=== PATIENT | female | born 1970 | race African-American/Black ===

== ENCOUNTER 2016-09-21 02:09 | Inpatient (IN) | payer MEDICARE ==
[~2016-09-21] VITALS: Ht 170.2 cm; Wt 84.7 kg
[~2016-09-21 02:09] MED LIST: AMPICILLIN TRI500 MG PO; BAYER ASPIRIN325 MG PO; BIAXIN 500 MG500 MG PO; CARAFATE1 G/10 ML PO; CREON (PANCRELI1 CAP PO; DIFLUCAN100 MG PO; FOLIC ACID1 MG PO; GEMFIBROZIL600 MG PO; HYDROCODONE-APA1 TAB PO; LISINOPRIL10 MG PO; LOPRESSOR25 MG PO; LOPRESSOR50 MG PO; MIRALAX17 GM PO; NEURONTIN 100100 MG PO; NEURONTIN 300300 MG PO; NICODERM C1 PATCH .2 TRANSDERM; NICODERM C1 PATCH .3 TRANSDERM; NORCO 5/325 TAB1 TA1 PO; NORVASC10 MG PO; NORVASC5 MG PO; PEPCID20 MG PO; PREDNISONE5 MG PO; PRILOSEC20 MG PO; PROTONIX40 MG PO; ULTRAM ER100 MG PO
[2016-09-21 02:53] LABS: BASOPHILS 0.2 % (0.0-2.0); EOSINOPHILS 1.6 % (0-7); HEMATOCRIT 39.5 % (36.0-48.0); HEMOGLOBIN 13.1 g/dL (12-16); IMMATURE GRANULOCYTES 0.2 % (0-5); LYMPHOCYTES 29.8 % (15-50); MCH 36.1 pg (26.0-34.0); MCHC 33.2 g/dL (31.0-37.0); MCV 108.8 fL (80.0-100.0); MEAN PLATELET VOLUME 9.8 fL (7.4-10.4); NEUTROPHILS 63.2 % (40-80); RBC 3.63 10x6/uL (4.00-5.40); RDW 14.8 % (11.5-14.5); WBC 10.7 10x3/uL (4.8-10.8)
[2016-09-21 03:03] LABS: PLATELET COUNT 260 10x3/uL (130-400)
[2016-09-21 03:21] LABS: ALBUMIN 3.3 g/dL (3.4-5.0); ALKALINE PHOSPHATASE 100 U/L (46-116); ALT (SGPT) 19 U/L (10-68); AMYLASE - SERUM 129 U/L (25-115); CALC OSMOLALITY 284 mosm/kg (275-300); CALCIUM 8.8 mg/dL (8.5-10.1); CHLORIDE - SERUM 105 mmol/L (98-107); CREATININE - SERUM 0.8 mg/dL (0.6-1.3); GLUCOSE 130 mg/dL (74-106); LIPASE 1204 U/L (73-393); PROTEIN - SERUM 6.9 g/dL (6.4-8.2); SODIUM 143 mmol/L (136-145); UREA NITROGEN 7 mg/dL (7-18); eGFR NON AFRICAN AMERICAN 81 mL/min (90-120)
--- NOTE | 2016-09-21 06:55 | NUR ---
Pt received to room 1278 by wheelchair from the ER. Able to transfer self in to the bed but is gaurding her left side, rates her pain at 9/10 and located on her left side and has been present and unchanged x 2 days. Also states that she has been nauseated with some vomiting and dirrehea x 2 weeks with 5+loose stools daily. IV to left AC patent without complaints, NS placed on pump per orders and Dilaudid MANUFACTURING RECRUITER started. Pt lungs are clear bilat, but she states that she currently has a non-productive cough, bowel sounds present. Pt allergies and home medications reviewed, admit assessment completed. She denies any questions or concerns at this time and has her microbiology lab assistant button in hand, side rails up x 2 and light turned down per request. will call if assistance is needed.
[2016-09-21 07:15] LABS: APPEARANCE CLOUDY (CLEAR); BILIRUBIN NEGATIVE (NEGATIVE); COLOR DK YELLOW (YELLOW); GLUCOSE NEGATIVE (NEGATIVE); KETONE NEGATIVE (NEGATIVE); LEUKOCYTE ESTERASE 1+ (NEGATIVE); NITRITE NEGATIVE (NEGATIVE); PROTEIN NEGATIVE (NEGATIVE); UROBILINOGEN NORMAL (NORMAL)
[2016-09-21 07:18] LABS: BACTERIA MODERATE /hpf (NONE SEEN); RED CELLS - URINE 0-5 /hpf (0-5); WHITE CELLS - URINE 0-5 /hpf (0-5)
[2016-09-21 07:54] VITALS: BP 178/89; BMI 28.5
--- NOTE | 2016-09-21 08:20 | NUR ---
Pt taken off unit by wheelchair with staff nuclear medicine technologist to go have CT done.
--- NOTE | 2016-09-21 09:30 | NUR ---
Pt back to her room from CT, she again transfers to bed without assistance. questions when she is able to have her zofran again, ER notes reviewed. pt advised of when next dose could be given and understands she will still need to call nurse for med if needed. Side rails up x 2 with phone and call light in reach. Sig other at bedside, encouraged both to call if assistance is needed or if they have questions.
--- NOTE | 2016-09-21 09:56 | NUR ---
up to void per herself, provided with wet wipes per request for personnel cleaning and per pt "feels better" when she uses them.
--- NOTE | 2016-09-21 10:19 | NUR ---
Pt calls out with complaint of increase nausea and ask if time for zofran. Emar/orders checked. Zofran 4mg sivp given as charted on emar. Lights tuned back out per her request. Continue to rate pain at 9/10 and is using her CAT SCAN TECH as often as possible, side rails up x 2 with call light with in her reach. Sig other at bedside.
--- NOTE | 2016-09-21 11:20 | NUR ---
New med orders received, verified and started as charted on emar. Pt rates pain at 9/10 but is now sitting up in bed with tv on visiting with sig other who remains at bedside. Call light in reach with side rails up x 2.
--- NOTE | 2016-09-21 12:55 | NUR ---
New bag of NS 1000ml hung and infusing per order. Pt ask if she is allowed ice chips and states her understanding not at this time. Denies any other questions or concerns at this time. lights turned out per her request, call light in reach with side rails up x 2.
--- NOTE | 2016-09-21 14:00 | NUR ---
Dr Veliz on unit and in for his review/assesment of pt, provided with am labs and CT results. Verbal order received that pt to have NG tube placed and coulg have 1mg bolus from button sewing machine operator prior to NG placement. Mill Attendant called and made awake of 's new orders.
--- NOTE | 2016-09-21 14:50 | NUR ---
18FR NG TUBE TO R NARES PER ALISHAAPPLIQUE SEWER WITHOUT COMPLECATIONS AND PT TOLERATES WELL. AFTER TUBE PLACED AIR INJECTED THRU AND AUDIBLE HEARD OVER PT STOMACH AREA, ALSO RETURN OF 45ML RED/BROWN FLUID NOTICED PRIOR TO CONNECTING TO SUCTION CANISTER. TUBING IS SECURED TO HER NOSE WITH NARES ATTACHMENT DEVICE AND PINNED TO PT GOWN TO PREVENT PULLING. WARM WET WASH CLOTH PROVIDED FOR HER TO WASH FACE AND HANDS, GOWN CHANGED AND TOWEL PLACED UNDER NG TUBING. PT DENIES ANY CONCERNS AT THIS TIME. CALL LIGHT IN REACH WITH SIDE RAILS UP X 2. SHE RATES HER PAIN AT 9/10 AND CONTINUES TO USE MANUFACTURING ENGINEERING TECHNOLOGIST WHEN POSSIBLE.
--- NOTE | 2016-09-21 15:51 | NUR ---
CALLED TO ROOM, PT ASKING FOR ASSISTANCE TO GET UP TO BATHROOM. SHE IS AGREEABLE TO A BEDSIDE TOILET. WATER CHASER NOTIFIED FOR THIS AND PT STATES SHE IS OK TO WAIT UNTIL THIS ARRIVES.
--- NOTE | 2016-09-21 16:53 | NUR ---
NG TUBE CANISTER REPLACED SECONDARY TO 900 CC REDISH-BROWN FLUID. REQUESTED ZOFRAN FOR C/O NAUSEA. ALSO CHECKED WITH RADIOLOGY TO SEE IF THEY ARE COMING TO DO KUB PER ORDER. THEY WILL BE DOWN SOON.
--- NOTE | 2016-09-21 18:34 | HP ---
PATIENT: NINA VALDOVINOS MEDICAL RECORD: [id number] ACCOUNT: [id number] LOCATION:[place] [id number] : 68 ADMISSION DATE: 09/21/16 HISTORY AND PHYSICAL EXAMINATION HISTORY OF PRESENT ILLNESS: Ms. Valdovinos is a pleasant 46-year-old white female with 2-day history of recent left upper quadrant pain, which radiates to the back, has a history of recurrent pancreatitis. She used to be a drinker, states she has not drinks since 2014, had first episode of pancreatitis for 5 years ago, has had recurrent problems since then and quit drinking a couple years ago. She does still smoke. Her gallbladder was removed last ____, thinking that might help with recurrence. Pancreatic enzymes are elevated. She still rates her pain pretty high as nausea and vomiting. PAST MEDICAL HISTORY: Significant for chronic and recurrent pancreatitis, diverticulitis with colitis, neuropathy, hypertension, rheumatoid arthritis, has been followed by ____ in the past. She denies any history of diabetes. PREVIOUS SURGICAL HISTORY: Includes gallbladder, hysterectomy, section, tonsillectomy, plate in right ankle, liver tumor, which was benign and PE tubes in her ears.. HOME MEDICATIONS: Included amlodipine 10 mg a day, lisinopril 10 mg a day,metoprolol 25 b.i.d., gabapentin 300 mg t.i.d., tramadol p.r.n., Creon 2 capsules t.i.d. with meals, famotidine 20 mg a day, pantoprazole 40 mg twice a day, prednisone 5 daily. FAMILY HISTORY: Noncontributory. SOCIAL HISTORY: The patient lives alone. She is disabled. She has not drink in a couple of years. She smokes 3-4 cigarettes on a day. She lives alone. REVIEW OF SYSTEMS: She denies any fever. She denies any chest pain or shortness of breath. She does complain of left upper quadrant pain, which radiates to her back. She has troubles with chronic diarrhea. No recent changes. There are no dysuria. PHYSICAL EXAMINATION: GENERAL: She appears to be in moderate pain. HEENT: Head is normocephalic. NECK: Soft and supple. HEART: Regular. LUNGS: Clear. ABDOMEN: Soft. She has quite a bit of tenderness in the left upper quadrant. Bowel sounds are present. IMPRESSION: Ysihp-cs-pulskis pancreatitis, history of alcohol abuse, current tobacco abuse, hypertension, rheumatoid arthritis, hyperlipidemia, neuropathy. PLAN: Admit. Continue with IV fluids, place an NG tube. Continue pain medicines. Monitor amylase and lipase. See orders for rest of plan. TRANSINT:[id number] Voice Confirmation ID: [id number] DOCUMENT ID: [id number] HISTORY AND PHYSICAL [id number] NINA VALDOVINOS MATTHEW DO at 1834 CC: [id number] DICTATION DATE: 09/21/16 1426 TIE SAWYER: 09/21/16 1510 ADM IN [place] [id number] [place] [address]
--- NOTE | 2016-09-21 19:17 | NUR ---
REGISTRATION COORDINATOR EMPTY. NEW VIAL PLACED. PAIN CURRENTLY 9/10, SHARP, STABBING PAIN TO LUQ OF ABD. PT REPORTS THAT PAIN IS CONSTANT. STATES THAT PAIN HAS BEEN 6-7/10 "A COUPLE OF TIMES TODAY" BUT RELIEF DOESN'T LAST LONG. FALL PRECAUTIONS DISCUSSED WELL USING CL PRN FOR ASSISTANCE, VERBALIZED UNDERSTANDING. S/O AT BEDSIDE AT THIS TIME. BED IN LOW POSITION WITH UPPER SIDE RAILS RAISED X2. CL/PHONE WITHIN REACH.
--- NOTE | 2016-09-21 19:27 | NUR ---
1ST K SHELDON SRIVASTAVA PER ELECTROLYTE PROTOCOL.
--- NOTE | 2016-09-21 19:41 | NUR ---
PT C/O BURNING TO PIV SITE. REQUESTS THAT K RIDER RATE BE DECREASED. STATES THAT SHE HAS HAD K RIDERS IN THE PAST AND KNOWS THAT THEY DO BURN BUT "IT'S LESS INTENSE WITH SLOWER RATE." INFUSION RATE DECREASED TO 75 MLS/HR PER PT REQUESTS.
[2016-09-21 19:46] VITALS: BP 143/81
--- NOTE | 2016-09-21 19:48 | NUR ---
SHIFT ASSESSMENT COMPLETED. PAIN 8/10 AT THIS TIME. SUCTION TURNED OFF AT THIS TIME. BOWEL SOUNDS PRESENT AND HYPOACTIVE X4 QUADS. PT REPORTS THAT SHE HAS HAD BM TODAY THAT WAS SMALL AND FORMED. ABD DISTENDED, C/O OF GENERALIZED ABD PAIN WITH INCREASED PAIN AND TENDERNESS TO LUQ. SUCTION TURNED BACK ONTO LOW INTERMITTENT SETTING ORDERED. CANISTER CONTENTS CURRENTLY DARK GREEN WITH LIGHT TO DARK GREEN CONTENTS WITH FOOD PARTICLES NOTED TO TUBING. PT REPORTS THAT SHE VOIDING WITHOUT DIFFUCULTY. VSS. BREATH SOUNDS CLEAR BILATERALLY TO AUSCULATION. HR REGULAR. PT REQUESTS PIV BE RESITED IF POSSIBLE FROM L A/C. RN ATTEMPTED TO RESITE WITH NO SUCCESS TO RIGHT FA. Sherly MCQUEEN, TAILER OFF TO ROOM TO ATTEMPT TO RESITE PER PT REQUEST. PIV TO LEFT A/C PATENT AND INFUSING WELL, PT REPORTS THAT IT IS JUST UNCOMFORTABLE NOT BEING ABLE TO MOVE AND BEND ARM FREELY. DENIES NEEDS AT THIS TIME S/O REMAINS AT BEDSIDE, SUPPORTIVE OF PT. BED IN LOW POSITION, CL/PHONE WITHIN REACH.
--- NOTE | 2016-09-21 20:10 | NUR ---
PIV RESITED TO LEFT HAND BY JULITO, COAL DRIER OPERATOR. DISCUSSED LEAVING LEFT A/C PIV IN PLACE SALINE LOCKED, D/T SMALL GAUGE BEING USED WITH RESITED, PT AGREEABLE. IV TUBING SWITCHED TO LEFT HAND PIV. PT AGREABLE TO LEAVE A/C PIV IN PLACE SALINE LOCKED. STATES THAT SHE USUALLY HAS TO HAVE PICC LINE PLACED WHEN IN THE HOSPITAL.
--- NOTE | 2016-09-21 20:51 | NUR ---
SECOND KCL RIDER HUNG. PT REQUESTS TO LEAVE RATE AT 75 MLS/HR. DENIES BURNING AND STINGING OF INFUSION AT THIS TIME. RATE LEFT AT 75 MLS/HR PER REQUEST.
--- NOTE | 2016-09-21 21:39 | NUR ---
PT RESTING WITH EYES CLOSED AT THIS TIME. WILL CONT TO MONITOR AND ASSIST PRN. BED IN LOW POSITION WITH UPPER SIDE RAILS RAISED X2. CL/PHONE WITHIN REACH.
--- NOTE | 2016-09-21 22:07 | NUR ---
PT HEARD COUGHING AND GAGGING. RN TO ROOM. PT VOMITING. REQUESTED PRN ZOFRAN TO BE GIVEN. GIVEN PER ORDER. PT VOMITED 200 MLS LIGHT YELLOW EMESIS IN EMESIS BAG. WATER GIVEN FOR PT TO RINSE MOUTH OUT FOLLOWING VOMITING EPISODE, SPIT WATER OUT IN EMESIS BASIN. ZOSYN HUNG PER ORDERS. PT UP TO BEDSIDE COMMODE AT THIS TIME. WILL CONT TO MONITOR AND ASSIST PRN.
--- NOTE | 2016-09-21 22:34 | NUR ---
THIRD KCL RIDER HUNG. PT REPORTS THAT NAUSEA IS GONE AT THIS TIME AND SHE HAS BEEN ABLE TO REST MORE COMFORTABLY NOW. PAIN /, LUQ OF ABD, CONSTANT SHARP ACHE. DENIES NEEDS AT THIS TIME. BED IN LOW POSITION. UPPER SIDE RAILS RAISED X2. CL/PHONE WITHIN REACH.
--- NOTE | 2016-09-22 00:49 | NUR ---
CALLED TO ROOM VIA CL. PT TEARFUL, RATING PAIN 10/10, CONSTANT SHARP ACHE ACROSS RUQ AND LUQ OF ABD. STATES THAT DIRECTOR STERILE PROCESSING IS NOT WORKING FOR PAIN AT THIS TIME. DR. PEACOCK PAGED WITH IMMEDIATE CALL BACK REC'D. ORDERS REC'D FOR 1 TIME 0.5 MG BOLUS FROM HYDROMORPHONE DIRECTOR STERILE PROCESSING.
[2016-09-22 01:03] VITALS: BP 162/88
--- NOTE | 2016-09-22 01:03 | NUR ---
0.5 MG HYDROMORPHONE BOLUS GIVEN FROM COMPLIANCE COORDINATOR PER ORDER. NEW BAG NORMAL SALINE HUNG PER ORDERS. RN ASSISTED PT TO POSITION TO LEFT SIDE WITH PILLOWS PLACE BEHIND BACK FOR COMFORT AND SUPPORT. PT DENIES ADDITIONAL NEEDS AT THIS TIME. BED IN LOW POSITION WITH UPPER SIDE RAILS RAISED X2. CL/PHONE WITHIN REACH. WILL CONT TO MONITOR AND ASSIST PRN.
--- NOTE | 2016-09-22 01:59 | NUR ---
PT C/O INCREASING NAUSEA. PRN ZOFRAN GIVEN PER ORDERS. ALSO REQUESTING KCL INFUSION RATE BE DECREASED D/T BURNING/STINGING OF KCL RIDERS. DECREASED TO 50 MLS/HR.
--- NOTE | 2016-09-22 02:15 | NUR ---
PT REQUESTED ICE CHIPS OR SIPS OF WATER. EXPLAINED THAT SHE WAS NPO. SWABS OFFERED AND ACCEPTED. DENIES ADDITIONAL NEEDS AT THIS TIME. REPORTS THAT PAIN IS CURRENTLY 7/10 AND MUCH IMPROVED FOLLOWING BOLUS.
--- NOTE | 2016-09-22 03:21 | NUR ---
4TH KCL RIDER INFUSION COMPLETE. PT RESTING WITH EYES CLOSED AT THIS TIME. RESPIRATIONS REGULAR, NO S/S OF DISTRESS NOTED. BED IN LOW POSITION WITH UPPER SIDE RAILS RAISED X2. CL/PHONE WITHIN REACH.
--- NOTE | 2016-09-22 04:02 | NUR ---
BLOCKLAYER VIAL CHANGED D/T BLOCKLAYER PUMP ALARMING NEAR END. PAIN CURRENTLY 8/10, SHARP ACHING CONSTANTLY. ZOSYN HUNG PER ORDERS (SEE EMAR). 1.6 MG HYDROMORPHONE WASTED. PT DENIES ADDITIONAL NEEDS AT THIS TIME. VSS. 500 MLS OUTPUT THIS SHIFT IN NGT CANISTER, DARK GREEN. NGT REMAINS TO LOW INTERMITTENT SUCTION SETTING. BED IN LOW POSITION. UPPER SIDE RAILS RAISED X2. CL/PHONE WITHIN REACH.
[2016-09-22 04:03] VITALS: BP 162/86
--- NOTE | 2016-09-22 04:42 | NUR ---
PT TRANSFERRED TO ROOM 1214 VIA W/C. ORIENTED TO ROOM, BATHROOM, AND CL USE. VERBALIZED UNDERSTANDING. BED IN LOW POSITION WITH UPPER SIDE RAILS RAISED X2. CL/PHONE PLACED WITHIN PT REACH.
[2016-09-22 07:45] VITALS: BP 159/85
[2016-09-22 08:00] VITALS: BP 159/85
[2016-09-22 08:02] LABS: BASOPHILS 0.1 % (0.0-2.0); EOSINOPHILS 2.6 % (0-7); HEMATOCRIT 36.5 % (36.0-48.0); HEMOGLOBIN 12.1 g/dL (12-16); IMMATURE GRANULOCYTES 0.3 % (0-5); LYMPHOCYTES 16.2 % (15-50); MCH 36.8 pg (26.0-34.0); MCHC 33.2 g/dL (31.0-37.0); MEAN PLATELET VOLUME 10.5 fL (7.4-10.4); NEUTROPHILS 73.8 % (40-80); PLATELET COUNT 218 10x3/uL (130-400); RBC 3.29 10x6/uL (4.00-5.40); RDW 14.9 % (11.5-14.5); WBC 8.9 10x3/uL (4.8-10.8)
[2016-09-22 08:03] LABS: MCV 110.9 fL (80.0-100.0)
[2016-09-22 08:10] LABS: INR 0.89 (0.85-1.17); PROTIME 11.9 SECONDS (11.6-15.0)
--- NOTE | 2016-09-22 08:20 | NUR ---
PATIENT IS AWAKE AND ALERT, AT THE BEDSIDE. HER NGT IS TO LIS VIA THE RIGHT NARE. THERE HAS BEEN MINIMAL OP SINCE 0400 (<10CC) HER LUNGS ARE CLEAR ANAYA. RRR AUSCULTATED. BOWEL SOUNDS ARE QUIET, HEARD IN RLQ. SHE IS NOT PASSING GAS. 1+ EDEMA NOTED TO THE TOPS OF EACH FOOT. SHE C/O NAUSEA DESPITE THE ZOFRAN GIVEN Q4 HOURS. SHE IS UP AD CEDRICK. DENIES NEEDING HELP UP TO THE RESTROOM. SHE DENIES NEEDS AT THIS TIME. CALL LIGHT IS WITHIN HER REACH.
[2016-09-22 08:29] LABS: ALBUMIN 3.1 g/dL (3.4-5.0); ALKALINE PHOSPHATASE 93 U/L (46-116); AMYLASE - SERUM 127 U/L (25-115); BILIRUBIN - TOTAL 0.86 mg/dL (0.2-1.3); CALCIUM 8.6 mg/dL (8.5-10.1); CARBON DIOXIDE 27.4 mmol/L (21.0-32.0); CHLORIDE - SERUM 104 mmol/L (98-107); CREATININE - SERUM 0.6 mg/dL (0.6-1.3); GLUCOSE 83 mg/dL (74-106); LIPASE 1042 U/L (73-393); PROTEIN - SERUM 6.7 g/dL (6.4-8.2); SODIUM 140 mmol/L (136-145); THYROID STIMULATING HORMONE 1.33 uIU/mL (0.36-3.74); eGFR NON AFRICAN AMERICAN > 90 mL/min (90-120)
[2016-09-22 08:31] LABS: ALT (SGPT) 14 U/L (10-68); CALC OSMOLALITY 274 mosm/kg (275-300); POTASSIUM - SERUM 3.9 mmol/L (3.5-5.1); UREA NITROGEN 3 mg/dL (7-18)
--- NOTE | 2016-09-22 09:35 | NUR ---
SPOKE WITH NIRANJAN CORNELIUS REGARDING NAUSEA. NEW ORDERS RECIEVED.
--- NOTE | 2016-09-22 09:58 | NUR ---
PATIENT IS RESTING IN HER BED, HOB UP 45 DEGREES, VISITING WITH COMPANY. NO NEEDS NOTED.
[2016-09-22 14:46] VITALS: Ht 170.2 cm; Wt 84.7 kg
--- NOTE | 2016-09-22 15:45 | NUR ---
SUCTION CANISTER CHANGED. SHE HAS HAD APPROX 400CC OF OP SINCE 0400 THIS MORNING. PLACEMENT OF NGT CHECKED VIA AUSCULTATION OF AIR BOLUS. RETAPED NGT FOR COMFORT.
--- NOTE | 2016-09-22 16:20 | NUR ---
DOLLYMAN BOLUS GIVEN VIA PUMP PER MD ORDER.
--- NOTE | 2016-09-22 16:25 | NUR ---
PATIENT ACCEPTED HER NICODERM PATCH. DENIES UNCONTROLLED PAIN. STATES THAT SHE IS GOING TO "CLEAN UP" AND DENIED NEEDS AT THIS TIME.
--- NOTE | 2016-09-22 18:33 | NUR ---
PATIENT CURRENTLY SITTING UP IN HER BED. SHE STATES THAT HER PAIN REMAINS AN 8. IT IS IN HER LUQ PRIMARILY WITH SHARP, SHOOTING PAINS AROUND THE LEFT SIDE TO HER BACK. SHE STATES THAT THE NAUSEA IS MUCH IMPROVED AT THIS TIME. DENIES NEEDS, CALL LIGHT IS WITHIN HER REACH.
[2016-09-22 20:09] VITALS: BP 154/105
--- NOTE | 2016-09-22 20:21 | NUR ---
RESUMING CARE OF THIS. BESIDE REPORT REC'D FROM Kriss QUEVEDO RN. PT REC'D SITTING IN HIGH [place]BSON POSITION. A&O X3. S/O AT BEDSIDE. BED IN LOW POSITION WITH UPPER SIDE RAILS RAISED X2. CL/PHONE WITHIN REACH.
--- NOTE | 2016-09-22 21:03 | NUR ---
PT REQUESTED NGT BE CAPPED SO THAT SHE COULD AMBULATE IN THE [facility] WITH S/O. NGT CAPPED PER REQUEST. PT UP AMBULATING WITH S/O AT THIS TIME
--- NOTE | 2016-09-22 21:33 | NUR ---
PT BACK TO ROOM FROM AMBULATING WITH S/O.
--- NOTE | 2016-09-22 22:03 | NUR ---
CALLED TO ROOM VIA CL. PT TEARFUL, GRIMACING AND RUBBING THAT TOP OF HER ABD. PAIN 10/10, STATES THAT FEELS LIKE SOMEONE IS STABBING HER AND TWISTING A KNIFE AROUND IN HER. REQUEST OBSTETRIC ANAESTHETIST BOLUS. ORDERS REVIEWED WITH PT. PT REPORTS THAT SHE THOUGHT MD WAS SUPPOSED TO ORDER PRN BOLUS DOSES FOR HER, EXPLAINED THAT ORDER WAS FOR 1 TIME BOLUS AND IT HAD ALREADY BEEN GIVEN PER DOCUMENTATION. ON-CALL MD PAGED.
--- NOTE | 2016-09-22 22:10 | NUR ---
CALL BACK REC'D FROM ROBERT SOLIZ. REPORTED PT C/O PAIN. ORDERS REC'D TO REPEAT 0.5 MG BOLUS X1.
--- NOTE | 2016-09-22 22:15 | NUR ---
0.5 MG BOLUS GIVEN FROM SUPERVISOR MIRROR FABRICATION ORDERED. NGT CANISTER CHANGED WITH 580 MLS OUTPUT NOTED. PT REPORTS THAT SHE FORGOT THAT TO NOTIFY RN OF NEED TO VOID AND HAS VOIDED BUT WILL CALL THE NEXT TIME FOR I&O CATH. BED IN LOW POSITION WITH UPPER SIDE RAILS RAISED X2. CL/PHONE WITHIN REACH.
--- NOTE | 2016-09-22 22:57 | NUR ---
AARTI SRIVASTAVA. SEE EMAR. PT REQUESTS CUP OF ICE WATER FOR SWABS FOR HER MOUTH. GIVEN PER REQUESTS. STATES THAT SHE FEELS NEED TO VOID. I&O CATH DONE USING STERILE TECHNIQUE, TOLERATED WELL, SPECIMAN OBTAINED AND SENT TO LAB. DENIES ADDITIONAL NEEDS. BED REMAINS IN LOW POSITION WITH UPPER SIDE RAILS RAISED X2, CL/PHONE WITHIN REACH.
[2016-09-23] VITALS: BP 168/104
--- NOTE | 2016-09-23 00:08 | NUR ---
B/P 168/104, HR 105. PT CONTINUES TO RATE PAIN 03/15 TO LUQ OF ABD. PAGED WITH IMMEDIATE CALL BACK REC'D FROM ROBERT SOLIZ. REPORTED UNCONTROLLED PAIN AND ELEVATED B/P. ORDERS REC'D FOR 10 MG IVP APRESOLINE Q6HP FOR SBP>170 AND DBP>100.
--- NOTE | 2016-09-23 00:21 | NUR ---
10 MG HYDRALAZINE GIVEN SIVP OVER 4 MINUTES VIA R UPPER ARM MIDLINE CATHETER. MED USE AND SIDE EFFECTS DISCUSSED WITH PT, VERBALIZED UNDERSTANDING. DENIES NEEDS AT THIS TIME. STATES THAT PAIN IS 9/10 AT THIS TIME. REINFORCED AND ENCOURAGED TO USE INSTRUMENT DESIGNER WHEN BUTTON IS GREEN, VERBALIZED UNDERSTANDING.
--- NOTE | 2016-09-23 01:19 | NUR ---
B/P RECHECKED, STABLE. NEW BAG NS HUNG TO CONTINUE TO INFUSE AT ORDERED RATED OF 125 MLS/HR (SEE EMAR). PAIN 8/10, CONSTANT SHARP ACHE TO LUQ OF ABD. DENIES NEEDS AT THIS TIME. CHILD CARE NURSE USED WHILE RN IN ROOM. BED IN LOW POSITION WITH UPPER SIDE RAILS RAISED X2. CL/PHONE WITHIN REACH.
[2016-09-23 01:20] VITALS: BP 157/89
--- NOTE | 2016-09-23 02:35 | NUR ---
ROUND MADE. PT RESTING WITH EYES CLOSES, AROUSED WHEN DOOR OPENED. RATES PAIN 8-9/10 LUQ ABD PAIN. ASSISTED TO POSITION TO LEFT SIDE, PILLOWS PLACED BEDHIND BACK FOR COMFORT AND SUPPORT. PT REPORTS THAT SHE IS STILL USING INFECTIOUS DISEASE TECHNICIAN BUTTON. ICE CHIPS GIVEN. DENIES ADDITIONAL NEEDS AT THIS TIME. BED IN LOW POSITION WITH UPPER SIDE RAILS RAISED X2. CL/PHONE WITHIN REACH. WILL CONT TO MONITOR AND ASSIST PRN.
--- NOTE | 2016-09-23 03:52 | NUR ---
ROUNDS MADE. PT RESTING WITH EYES CLOSED AT THIS TIME. RESPIRATIONS REGULAR. NO S/S OF DISTRESS NOTED. BED IN LOW POSITION WITH UPPER SIDE RAILS RAISED X2. CL/PHONE WITHIN REACH. WILL CONT TO MONITOR AND ASSIST PRN.
[2016-09-23 05:03] VITALS: BP 151/95
[2016-09-23 06:29] LABS: BASOPHILS 0.1 % (0.0-2.0); EOSINOPHILS 2.3 % (0-7); HEMATOCRIT 35.6 % (36.0-48.0); HEMOGLOBIN 11.8 g/dL (12-16); IMMATURE GRANULOCYTES 0.2 % (0-5); LYMPHOCYTES 16.6 % (15-50); MCH 36.3 pg (26.0-34.0); MCHC 33.1 g/dL (31.0-37.0); MCV 109.5 fL (80.0-100.0); MEAN PLATELET VOLUME 10.1 fL (7.4-10.4); MONOCYTES 5.7 % (2-11); NEUTROPHILS 75.1 % (40-80); PLATELET COUNT 203 10x3/uL (130-400); RBC 3.25 10x6/uL (4.00-5.40); RDW 14.9 % (11.5-14.5); WBC 8.8 10x3/uL (4.8-10.8)
[2016-09-23 07:02] LABS: ALBUMIN 2.8 g/dL (3.4-5.0); ALKALINE PHOSPHATASE 91 U/L (46-116); ALT (SGPT) 14 U/L (10-68); CALCIUM 8.2 mg/dL (8.5-10.1); CHLORIDE - SERUM 98 mmol/L (98-107); CHOLESTEROL, TOTAL 210 mg/dL (0-200); CREATININE - SERUM 0.5 mg/dL (0.6-1.3); LIPASE 351 U/L (73-393); PROTEIN - SERUM 6.4 g/dL (6.4-8.2); SODIUM 134 mmol/L (136-145); TRIGLYCERIDE 45 mg/dL (30-200); eGFR NON AFRICAN AMERICAN > 90 mL/min (90-120)
[2016-09-23 07:05] LABS: AMYLASE - SERUM 63 U/L (25-115); CALC OSMOLALITY 261 mosm/kg (275-300); CHOL - HDL RATIO 1.3 ratio (2.3-4.1); GLUCOSE 65 mg/dL (74-106); HDL CHOLESTEROL 162 mg/dL (32-96); LDL CHOLESTEROL 39 mg/dL (0-100); LDL-HDL RATIO 0.2 ratio (1.5-3.5); UREA NITROGEN 2 mg/dL (7-18)
--- NOTE | 2016-09-23 07:30 | NUR ---
PATIENT IS RESTING QUIETLY WITH EYES CLOSED. NO NEEDS NOTED. MONITORING.
[2016-09-23 08:00] VITALS: BP 155/83
--- NOTE | 2016-09-23 08:40 | NUR ---
PATIENT ACCEPTED NICOTINE PATCH TOT HE LEFT UPPER ARM. SHE HAD REMOVED THE PATCH FROM THE RIGHT UPPER ARM FROM YESTERDAY. SHE RATES HER PAIN A 9. SHE STATES HTAT THE PAIN IS MORE EPIGASTRIC TODAY BUT DOES STILL GO THROUGH TO HER BACK. SHE HAS 250CC OF OP FROM HER NGT SINCE 0500.
--- NOTE | 2016-09-23 10:45 | NUR ---
PATIENT'S THIRD BAG OF POTASSIUM HUNG. NEW ORDERS RECEIVED FOR A DILAUDID BOLUS Q4 HOURS PRN. SHE IS RATING HER PAIN A 9/10. BOLUS GIVEN VIA LOG TURNER. SHE IS RESTING IN HER BED, HOB UP 45 DEGREES. CALL LIGHT IS WITHIN HER REACH. DISCUSSED WITH HER THAT CLARIFIED THAT SHE IS NOT TO BE DRINKING ANYTHING. SHE NODS AND VOICED UNDERSTANDING.
--- NOTE | 2016-09-23 12:00 | NUR ---
DR. IRVIN HERE TO ASSESS PATINET. SHE IS AWAKE AND ALERT, WITHONT NOTED NEEDS.
[2016-09-23 13:00] VITALS: BP 138/74
--- NOTE | 2016-09-23 13:30 | NUR ---
PATIENT IS SITTING UP ON HER BEDSIDE WITH HER FEET IN A BASIN OF WATER. SHE DENIES NEEDS FOR ASSISTANCE AT THIS TIME. FRESH GOWN AND TOWELS PROVIDED FOR HER. INSTRUCTED HER TO CALL FOR ASSISTANCE PUTTING THINGS AWAY AND CHANGING BED LINENS WHEN SHE IS FINISHED. CALL LIGHT IS WITHIN HER REACH. HER SPOUSE IS AT THE BEDSIDE.
--- NOTE | 2016-09-23 13:32 | NUR ---
Is the patient Alert and Oriented? Yes 0 * How many steps to enter\exit or inside your home? 0 0 * PCP DR. IRVIN 0 * Pharmacy [facility] 0 * Preadmission Environment Home Alone 0 * ADLs Independent 0 * Equipment Rolling Walker 0 * List name and contact numbers for known caregivers / representatives who currently or will assist patient after discharge: SON: ISABEL CARLSON JR. [phone] 0 * Community resources currently utilized None 0 * Please name any agencies selected above. PATIENT HAD [facility] IN THE PAST 0 * Additional services required to return to the preadmission environment? No 0 * Can the patient safely return to the preadmission environment? Yes 0 * Has this patient been hospitalized within the prior 30 days at any hospital? No PATIENT IS AWAKE AND ALERT. SHE STATES SHE LIVES AT HOME ALONE AND IS INDEPENDENT IN HER ADL'S. HE SON IS AVAILABLE TO ASSIST HER NEEDED. EITHER HE OR HER OTHER SON WILL BE AVAILABLE TO DRIVE HER HOME AT DISCHARGE. PATIENT'S PCP IS DR. IRVIN. SHE GETS HER MEDS FROM [facility]. SHE HAS A WALKER. SHE STATES SHE HAD HOME HEALTH CARE IN THE PAST WITH [facility]. PATIENT STATES THERE ARE NOT STEPS TO ENTER HER HOME. NO NEEDS IDENTIFIED AT THIS TIME.
--- NOTE | 2016-09-23 15:05 | NUR ---
PATIENT USED CALL LIGHT TO REQUEST A DILAUDID BOLUS AND TO HAVE HER SUCTION CANISTER CHANGED. THERE IS 750CC OF DRAINAGE THAT HAS DIFFERENT COLORS THROUGHOUT. THERE IS EVEN SOME SEDIMENT IN THE BOTTOM OF THE CANISTER. AGAIN INSTRUCTED HER TO NOT EAT OR DRINK ANYTHING MORE. SHE STATES THAT SHE DID DRINK SOME TEA AND THAT APPROX 1/2 OF THE DRAINAGE IS TEA. SHE'S ALSO HAD A COUGH DROP AND THIS ACCOUNTS FOR THE BLUE AT THE TOP. CANISTER CHANGED.
--- NOTE | 2016-09-23 16:30 | NUR ---
Linen change completed. Pt assisted to bed. NG tube reconnected after ADL completion. Pt with no s/sx distress noted. Family at bedside.
--- NOTE | 2016-09-23 18:03 | NUR ---
Medication administration completed. Tolerated well. ABTx hung after pepcid administered. Tolerated well. Assisted to reposition in bed. Pt denies further needs at this time. NO s/sx distress noted.
[2016-09-23 19:35] VITALS: BP 153/98
--- NOTE | 2016-09-23 19:35 | NUR ---
AWAKE DURING INITIAL ROUNDS. INTRODUCED SELF. V/S TAKEN. BP 153/98. ASSESSMENT DONE. STATUS Dx: PANCREATITIS/HYPOKALEMIA. NGT TO LOW INTERMITTENT SUCTION WITH GREENISH GASTRIC SECRETIONS. NS @ 125cc/hr TO R UPPER ARM. DILAUDID DESIGN CENTER CONSULTANT FOR PAIN MANAGEMENT. ZOFRAN DRIP INFUSING. SEE E-MAR. BOTH HANDS SWOLLEN.
--- NOTE | 2016-09-23 20:00 | NUR ---
PORTABLE KUB DONE.
--- NOTE | 2016-09-23 20:35 | NUR ---
SOLUMEDROL 125mg IVP GIVEN ORDERED. 1ST BAG OF MAGNESIUM RIDER INFUSING.
--- NOTE | 2016-09-23 21:04 | NUR ---
2nd MAGNESIUM RIDER STARTED.
--- NOTE | 2016-09-23 22:06 | NUR ---
3rd MAGNESIUM RIDER STARTED.
--- NOTE | 2016-09-23 22:43 | NUR ---
DILAUDID BOLUS 0.5mg GIVEN. ZOSYN IVPB INFUSING. SEE E-MAR. NO ADVERSE REACTION NOTED.
--- NOTE | 2016-09-23 23:09 | NUR ---
LAST DOSE OF MAGNESIUM RIDER GIVEN. SEE E-MAR.
[2016-09-24 00:05] VITALS: BP 173/101
--- NOTE | 2016-09-24 00:14 | NUR ---
FIRST BAG OF K+ RIDER STARTED. SEE E-MAR.
--- NOTE | 2016-09-24 00:41 | NUR ---
B/P 173/101. APRESOLINE GIVEN SIVP OVER 3 MINUTES VIA RIGHT UPPER ARM MIDLINE CATH. MIDLINE FLUSHED WITH 10 MLS NS PRIOR TO ADMINISTERING AND 20 MLS POST ADMINISTRATION. IV INFUSIONS RESTARTED FOLLOWING APRESOLINE DOSE.
--- NOTE | 2016-09-24 02:34 | NUR ---
3rd BAG OF K+ RIDER STARTED. UP TO THE BATHROOM. VOIDED.
--- NOTE | 2016-09-24 02:47 | NUR ---
DILAUDID 0.5mg BOLUS GIVEN PER PT's REQUEST.
--- NOTE | 2016-09-24 03:00 | NUR ---
NGT CANNISTER REPLACED. 900cc OUTPUT.
--- NOTE | 2016-09-24 03:51 | NUR ---
LAST BAG OF K+ RIDER STARTED. PT AWAKE.
[2016-09-24 04:07] VITALS: BP 151/93
--- NOTE | 2016-09-24 04:07 | NUR ---
V/S RE-CHECKED. BP 151/93.
--- NOTE | 2016-09-24 04:59 | NUR ---
IV PUMP CLEARED FOR INTAKE AND OUTPUT.
--- NOTE | 2016-09-24 05:48 | NUR ---
DILAUDID GATE TECHNICIAN SYRIUNGE CHANGED. PAIN LEVEL "6" /10.
--- NOTE | 2016-09-24 06:02 | NUR ---
PEPCID 40mg SIVP GIVEN. SEE E-MAR. SLEPT FAIRLY WELL DURING THE NIGHT. CONTINUING PLAN OF CARE.
--- NOTE | 2016-09-24 07:09 | NUR ---
GYMNASIUM TEACHER HERE TO DRAW AM LAB. DILAUDID BOILER OR ENGINE OPERATOR BOLUS GIVEN. PAIN LEVEL "6"/10. REPORT GIVEN TO AM SHIFT NURSES.
[2016-09-24 07:15] VITALS: BP 145/92
[2016-09-24 07:46] LABS: BASOPHILS 0 % (0.0-2.0); EOSINOPHILS 0 % (0-7); HEMATOCRIT 34.6 % (36.0-48.0); HEMOGLOBIN 11.4 g/dL (12-16); IMMATURE GRANULOCYTES 0.1 % (0-5); MCHC 32.9 g/dL (31.0-37.0); MCV 109.1 fL (80.0-100.0); MEAN PLATELET VOLUME 10.3 fL (7.4-10.4); MONOCYTES 1.8 % (2-11); NEUTROPHILS 91.1 % (40-80); PLATELET COUNT 214 10x3/uL (130-400); RBC 3.17 10x6/uL (4.00-5.40); RDW 14.6 % (11.5-14.5); WBC 6.8 10x3/uL (4.8-10.8)
[2016-09-24 08:01] LABS: ALBUMIN 2.6 g/dL (3.4-5.0); ALKALINE PHOSPHATASE 84 U/L (46-116); ALT (SGPT) 11 U/L (10-68); AMYLASE - SERUM 52 U/L (25-115); C-REACTIVE PROTEIN 15.2 mg/dL (0.0-0.9); CALCIUM 8.5 mg/dL (8.5-10.1); CARBON DIOXIDE 23.8 mmol/L (21.0-32.0); CHLORIDE - SERUM 103 mmol/L (98-107); CREATININE - SERUM 0.5 mg/dL (0.6-1.3); LIPASE 214 U/L (73-393); POTASSIUM - SERUM 3.8 mmol/L (3.5-5.1); PROTEIN - SERUM 6.4 g/dL (6.4-8.2); SODIUM 138 mmol/L (136-145); eGFR NON AFRICAN AMERICAN > 90 mL/min (90-120)
[2016-09-24 08:09] LABS: CALC OSMOLALITY 274 mosm/kg (275-300); GLUCOSE 146 mg/dL (74-106); UREA NITROGEN 1 mg/dL (7-18)
--- NOTE | 2016-09-24 08:35 | NUR ---
X-RAY IS HERE TO TAKE PT TO HAVE MRI OF ABDOMEN. IV SALINE LOCKED. NG TUBE IS CLAMPED. PT TAKEN BY WHEELCHAIR.
--- NOTE | 2016-09-24 10:00 | NUR ---
PT BROUGHT BACK FROM X-RAY. PT OFFERS NO COMPLAINTS. PT BACK TO BED.
--- NOTE | 2016-09-24 11:00 | NUR ---
PT IS SITING UP IN BED WATCHING TV. SHE OFFERS NO COMPLAINTS. BED IS LOW., SIDE RAILS UP 2 AND CALL LIGHT IN REACH.
--- NOTE | 2016-09-24 11:59 | CN ---
PATIENT NAME:NINA ODELL MEDICAL RECORD: [id number] : 66 LOCATION:[facility].1214 ADMIT DATE: 09/21/16 ACCOUNT: [id number] CONSULTING PHYSICIAN: MICHELLE MIRZA MD REFERRING PHYSICIAN: WAN SOTO DO DATE OF CONSULTATION: 09/23/2016 Gastrointestinal Consultation REFERRING PHYSICIAN: Fabio Irvin MD HISTORY OF PRESENT ILLNESS: The patient is a 46-year-old black female, well known to me with history of longstanding alcohol abuse and subsequent pancreatitis, now admitted with recurrent mild pancreatitis as noted on admitting lab work and CT of the abdomen. She has been off on alcohol for several years, but she claims she quit drinking about a year and a half ago. She has had multiple admissions over the past couple of years including March 2015, September 2015, April 2016 and now. She had an empiric cholecystectomy in April of last year to see if that might help. She has had KUB here too that revealed some obstipation in the past, but supposedly is on MiraLax periodically. B12 and folate levels have been unremarkable so far, although she does have an elevated MCV apparently due to her past alcohol abuse. She has had mild to moderate hypertriglyceridemia in the past and has been on Lopid for that. However, recent triglyceride level was normal at around 200. She underwent recent EGD a couple months as an outpatient that was normal other than very early esophageal varices. On admission, a CT of the abdomen was normal other than postcholecystectomy changes and mild pancreatitis changes involving the tail of the pancreas. There is no necrosis or fluid collections present. Her lipase was about 1100 and her amylase was 127. After 24 hours of IV fluids, they have already normalized. However, she still is symptomatic despite NG tube and BUILDING CONSTRUCTION SUPERINTENDENT pump. I was asked to see the patient in this regard. PAST MEDICAL HISTORY: As above. She also has neuropathy as well as hypertension. PAST SURGICAL HISTORY: Remarkable for , tonsillectomy, ankle fracture and she actually had an upper and lower endoscopy by Dr. Padgett back in 2010, which were unremarkable. She also has had a hysterectomy. ALLERGIES: LATEX. SOCIAL HISTORY: The patient smoked quarter pack a day for 15 years, but quit about a year ago. She used to be a heavy drinker, but she apparently quit drinking a little over a year ago. She has also started smoking cigarettes again it appears. HOME MEDICATIONS: Include p.r.n. MiraLax, Lopid, Norvasc, lisinopril, Neurontin as well as prednisone 5 mg daily for her "arthritis." FAMILY HISTORY: Negative for GI disease. REVIEW OF SYSTEMS: Noncontributory. CONSULT REPORT [id number] NINA ODELL PHYSICAL EXAMINATION: GENERAL: Reveals a middle-aged black female in mild to moderate distress. VITAL SIGNS: Stable. She is afebrile. CHEST: Clear. HEART: Regular rhythm. ABDOMEN: Soft with mild to moderate tenderness in left upper quadrant. She has an NG tube in place. EXTREMITIES: No edema. LABORATORY DATA: Reveals normal white count, normal hematocrit of 39, MCV of 106, platelet count of 200,000 with a normal differential. Electrolytes are normal. BUN 2, creatinine 0.6. Liver enzymes are normal. Albumin is low at 3. Amylase and lipase are normal at present. Of note, the recent IgG4 level was normal. IMPRESSION 1. Recurrent [id number] mild pancreatitis, apparently stemming from alcohol use. Some of it could be related to her history of hypertriglyceridemia as well. 2. History of chronic constipation, although this does not seem to be much of an issue right now. RECOMMENDATION: 1. Agree with vigorous IV fluids, BUILDING CONSTRUCTION SUPERINTENDENT for pain control, and bowel rest. 2. Check KUB. 3. MRCP. 4. Once improved, she will need long-term Creon pancreatic supplementation, which she claims she is already taking. This needs to be paired with a PPI to help reduce acids in her stomach. 5. Low fat diet. 6. Completely avoid all alcohol and tobacco products. 7. Avoid dehydration. 8. There is mention in the chart about referring to her to [facility]. I have no problems with these, other than I do not believe there is much that they could do there more than we could do here, other than consideration of a possible partial pancreatectomy, which will be obviously required on aggressive approach. TRANSINT:[id number] Voice Confirmation ID: [id number] DOCUMENT ID: [id number] MICHELLE MIRZA MD at 1159 CC: FABIO IRVIN MD [id number] DICTATION DATE: 09/23/16 913 TRANSPORTATION BROKER: 09/24/16 0006 ADM IN [facility] [address] [id number]
--- NOTE | 2016-09-24 12:17 | NUR ---
PT C/O PAIN BEING A 6/10. SHE REQUESTED A BOLUS. GIVEN . PT IS SITTING ON SIDE OF BED.
--- NOTE | 2016-09-24 12:54 | NUR ---
PT IS IN WHEELCHAIR GOING TO WALK WITH HER SON. NG CLAMPED. IV SALINE LOCKED.
--- NOTE | 2016-09-24 13:00 | NUR ---
DR RIGGS IS HERE TO SEE PT. PT IS OUT WALKING WITH HER SOON. DR RIGGS GAVE ORDERS TO CLAMP HER NG AND GIVE HER CLEAR LIQUIDS. HE STATES THAT IF SHE TOLERATES 2 LIQUID DIETS THAT WE MAY REMOVE NG TUBE. HE STATES HER MRI SHOWS MILD PANCREATITIS. KUB SHOWED NO BLOCKAGE.
--- NOTE | 2016-09-24 13:47 | NUR ---
PT RETURNED TO ROOM WITH HER SON. PT OFFERS NO COMPLAINTS.
--- NOTE | 2016-09-24 14:02 | NUR ---
PTS NG TUBE HAS BEEN CLAMPED. LIQUID DIET LUNCH WAS BROUGHT TO HER. SHE IS GOING TO TRY TO EAT THIS.
--- NOTE | 2016-09-24 15:00 | NUR ---
PT HAS TOLERATED NG TUBE BEING CLAMPED. SHE ATE HER CLEAR LIQUID DIET AND ALSO ASKED FOR SOME MORE BROTH.
--- NOTE | 2016-09-24 15:15 | NUR ---
PT IS SLEEPING. BED IS LOW, SIDE RAILS UP X 2 AND CALL LIGHT IN REACH.
--- NOTE | 2016-09-24 16:01 | NUR ---
PT IS SLEEPING. BED IS LOW, SIDE RAILS UP X 2 AND CALL LIGHT IN REACH.
--- NOTE | 2016-09-24 17:04 | NUR ---
PT IS STILL SLEEPING. HER IS AT BEDSIDE. BED IS LOW. SIDE RAILS UP X 2 AND CALL LIGHT IN REACH.
--- NOTE | 2016-09-24 17:39 | NUR ---
PT AWAKE AND EATING CLEAR LIQUID DIET. TOLERATING WELL. SHE IS HAVING PAIN. SHE WOULD LIKE TO HAVE A DILAUDID BOLUS. GIVEN. 0.5 MG. AT BEDSIDE.
[2016-09-24 19:22] VITALS: BP 145/80
--- NOTE | 2016-09-24 19:22 | NUR ---
PT RECEIVED SITTING UP IN BED AAOX3 WITH FAMILY AT BEDSIDE. PULSE-113. PT RATES PAIN 7/10 AT THIS TIME. IV NOTED TO RIGHT UPPER ARM INFUSING NS @ 125 CC/HR WITH ZOFRAN DRIP INFUSING @ 4.6 CC/HR. PATENT. DRESSING CDI. HEART-SINUS TACHYCARDIA RHYTHM REGULAR. LUNG SOUNDS CLEAR BILATERALLY. BOWEL SOUNDS ACTIVE X4 QUADRENTS. NG TUBE NOTED TO RIGHT NARE. CLAMPED. PT ON CLEAR LIQUID DIET AT THIS TIME. TOLERATING WELL. ABDOMEN SOFT. NON-DISTENDED. PT CONTINUES TO REFUSE SCDS AT THIS TIME. PEDAL PULSES EQUAL BILATERALLY. PT DENIES NEEDS AT THIS TIME. BED LOW. PHONE AND CALL LIGHT IN REACH. SRX2.
--- NOTE | 2016-09-24 20:46 | NUR ---
NG TUBE REMOVED AT THIS TIME. PT TOLERATED WELL. TIP INTACT. PT REQUESTS CHICKEN BROTH AND ICE WATER. DENIES OTHER NEEDS. BED LOW. PHONE AND CALL LIGHT IN REACH. SRX2.
--- NOTE | 2016-09-24 21:45 | NUR ---
PT UP AMBULATING HALLWAY AT THIS TIME. DENIES NEEDS.
--- NOTE | 2016-09-24 22:01 | NUR ---
0.4 MG BOLUS DOSE OF DILAUDID ADMINISTERED AT THIS TIME FOR PAIN PT RATES 01/12. CHANGED DILAUDID PIECE GOODS PACKER AT THIS TIME. PT DENIES NEEDS. BED LOW. PHONE AND CALL LIGHT IN REACH. SRX2.
--- NOTE | 2016-09-24 22:51 | NUR ---
REASSESSED PTS PAIN AT THIS TIME. PT RATES PAIN 01/12. DENIES NEEDS. TALKING ON PHONE AT THIS TIME. BED LOW. PHONE AND CALL LIGHT IN REACH. SRX2.
--- NOTE | 2016-09-24 23:35 | NUR ---
CONTACTED SHOW CARD LETTERER, ALISHA AT THIS TIME CONCERNING IV DRUG COMPATABILITY OF ZOSYN AND ZOFRAN. HE STATES IT IS COMPATIBLE AT [facility] AND BROUGHT THE BOOK TO SHOW ME.
--- NOTE | 2016-09-24 23:42 | NUR ---
PT TALKING ON PHONE AT THIS TIME. INITIATED ZOSYN IVPB PER ORDERS AT THIS TIME. VSS. PT DENIES NEEDS AT THIS TIME. BED LOW. PHONE AND CALL LIGHT IN REACH. SRX2.
[2016-09-24 23:45] VITALS: BP 147/86
--- NOTE | 2016-09-25 01:40 | NUR ---
PT UP USING RESTROOM AT THIS TIME. REQUESTS COFFEE. DENIES OTHER NEEDS. BED LOW. PHONE AND CALL LIGHT IN REACH. SRX2.
--- NOTE | 2016-09-25 02:10 | NUR ---
0.5 MG BOLUS DOSE OF DILAUDID ADMINISTERED AT THIS TIME. PT DENIES NEEDS.
[2016-09-25 03:49] VITALS: BP 156/89
--- NOTE | 2016-09-25 03:49 | NUR ---
PT SITTING UP IN BED WATCHING TV AT THIS TIME. VSS. PT DENIES NEEDS AT THIS TIME. BED LOW. PHONE AND CALL LIGHT IN REACH. SRX2.
--- NOTE | 2016-09-25 05:26 | NUR ---
PT RESTING QUIETLY AT THIS TIME WITH EYES CLOSED. AROUSED EASILY. ADMINISTERED PEPCID IVP PER ORDERS AT THIS TIME. PT DENIES NEEDS. BED LOW. PHONE AND CALL LIGHT IN REACH. SRX2.
--- NOTE | 2016-09-25 06:40 | NUR ---
0.5 MG DILAUDID ECOLOGIST TECHNICIAN BOLUS ADMINISTERED AT THIS TIME. PT DENIES OTHER NEEDS. BED LOW. PHONE AND CALL LIGHT IN REACH. SRX2.
[2016-09-25 06:51] LABS: BASOPHILS 0 % (0.0-2.0); EOSINOPHILS 0 % (0-7); HEMATOCRIT 39.1 % (36.0-48.0); IMMATURE GRANULOCYTES 0.2 % (0-5); LYMPHOCYTES 4.1 % (15-50); MCH 35.9 pg (26.0-34.0); MCHC 33.2 g/dL (31.0-37.0); MEAN PLATELET VOLUME 11.1 fL (7.4-10.4); MONOCYTES 3.7 % (2-11); PLATELET COUNT 282 10x3/uL (130-400); RBC 3.62 10x6/uL (4.00-5.40); RDW 14.8 % (11.5-14.5); WBC 12.5 10x3/uL (4.8-10.8)
[2016-09-25 07:01] LABS: ALBUMIN 3.2 g/dL (3.4-5.0); ALKALINE PHOSPHATASE 92 U/L (46-116); ALT (SGPT) 13 U/L (10-68); BILIRUBIN - TOTAL 0.46 mg/dL (0.2-1.3); CARBON DIOXIDE 20.9 mmol/L (21.0-32.0); CHLORIDE - SERUM 103 mmol/L (98-107); POTASSIUM - SERUM 3.7 mmol/L (3.5-5.1); PROTEIN - SERUM 6.9 g/dL (6.4-8.2); SODIUM 142 mmol/L (136-145)
[2016-09-25 07:04] LABS: CALC OSMOLALITY 284 mosm/kg (275-300); CREATININE - SERUM 0.7 mg/dL (0.6-1.3); GLUCOSE 205 mg/dL (74-106); UREA NITROGEN 2 mg/dL (7-18); eGFR NON AFRICAN AMERICAN > 90 mL/min (90-120)
[2016-09-25 07:30] VITALS: BP 153/98
--- NOTE | 2016-09-25 07:30 | NUR ---
PT IS RECEIVED LYING IN BED. SHE OFFERS NO COMPLAINTS. BED IS LOW, SIDE RAILS UP X 2 AND CALL LIGHT IN REACH. GEN- AWAKE AND ALERT. LUNGS- CLEAR. HEART- RRR. ABD- SOFT, TENDER, BS+. EXT- NO SCD'S, PT REFUSED, SHE IS UP AND AMBULATORY. IV PATENT-R UPPER INNER ARM. PATENT WITH IV INFUSING AND DILAUDID DIESEL LOCOMOTIVE FIRER.
--- NOTE | 2016-09-25 08:00 | NUR ---
PT IS UP WALKING IN HALLWAY. SHE ASKED TO BE UNHOOLED FROM HER IV. UNHOOKED IV AND BLOOD STARTED COMING OUT ON FLOOR AND ON PT. IV REATTACHED. CLEANED UP SPILL USING APPROPRIATE WIPES AND THEN PT WAS SALINE LOCKED WITHOUT PROBLEMS.
--- NOTE | 2016-09-25 09:30 | NUR ---
PT BACK TO ROOM. SALINE LOCK WAS FLUSHED WITH SALINE AND IT WOULD NOT FLUSH. JEREL, VASCULAR ACCESS NURSE CALLED. SHE GOT IT TO FLUSH AND IV WAS STARTED BACK UP.
--- NOTE | 2016-09-25 10:00 | NUR ---
PT REQUEST BOLUS FROM MISSION ANALYST FOR PAIN. PAIN 8/10. BOLUS GIVEN. BED IS LOW, SIDE RAILS UP X 2 AND CALL LIGHT IN REACH.
--- NOTE | 2016-09-25 12:30 | NUR ---
PT IS EATING FULL LIQUID DIET. SHE STATES THAT SHE WOULD LIKE TO HAVE A REGULAR DIET. SHE STATES THAT DR IRVIN TOLD HER THAT SHE COULD HAVE A REGULAR DIET. PT ORDERED REGULAR DIET.
--- NOTE | 2016-09-25 13:01 | NUR ---
PT TOLERATED FULL LIQUID DIET. PT REQUESTED A REGULAR DIET. ORDERED REGULAR DIET FOR PT.
--- NOTE | 2016-09-25 14:12 | NUR ---
0.5MG DILAUDID BOLUS GIVEN PER REQUEST.
--- NOTE | 2016-09-25 14:44 | NUR ---
PT IS RESTING IN BED. TOLERATED HER REGUALR DIET. OFFERS NO COMPLAINTS. IV PATENT. BED IS LOW, SIDE RAILS UP X 2 AND CALL LIGHT IN REACH.
--- NOTE | 2016-09-25 17:45 | NUR ---
PT IS RESTING IN BED. OFFERS NO COMPLAINTS. BED IS LOW SIDE RAILS UP X 2 AND CALL LIGHT IN REACH. IV PATENT R UPPER ARM. NS INFUSING AT 125 CC/HR. DILAUDID GLASS MOLD REPAIRER INTACT.
--- NOTE | 2016-09-25 17:59 | NUR ---
PT IS UP IN ROOM TO VOID. VOIDED 400 CC.
[2016-09-25 19:09] VITALS: BP 166/88
--- NOTE | 2016-09-25 19:09 | NUR ---
PT RECEIVED SITTING UP IN BED WATCHING TV. DILAUDID COTTON CONVERTER BOLUS OF 0.5 MG GIVEN AT THIS TIME. PT RATES PAIN 8/10. VSS. MIDLINE IV NOTED TO RIGHT UPPER ARM INFUSING NS @ 125 WITH DILAUDID COTTON CONVERTER AND ZOFRAN DRIP. PATENT. DRESSING CDI. HEART RRR. LUNG SOUNDS CLEAR BILATERALLY. BOWEL SOUNDS ACTIVE X4 QUADRENTS. SCDS NOTED TO BLE AT THIS TIME. PT REQUESTS CHOCOLATE AND VANILLA PUDDING AT THIS TIME. DENIES OTHER NEEDS. BED LOW. PHONE AND CALL LIGHT IN REACH. SRX2.
--- NOTE | 2016-09-25 20:30 | NUR ---
PT RESTING QUIETLY AT THIS TIME WITH EYES CLOSED. RESPIRATIONS EVEN, NON-LABORED. NO ACUTE DISTRESS NOTED AT THIS TIME. BED LOW. PHONE AND CALL LIGHT IN REACH. SRX2.
--- NOTE | 2016-09-25 21:01 | NUR ---
ADMINISTERED VIBRAMYCIN PO PER ORDERS AT THIS TIME. PT DENIES NEEDS. BED LOW. PHONE AND CALL LIGHT IN REACH. SRX2.
--- NOTE | 2016-09-25 21:42 | NUR ---
PT SITTING UP IN BED. REQUESTS CUP OF ICE, PEN, AND PAPER AT THIS TIME. DENIES OTHER NEEDS. BED LOW. PHONE AND CALL LIGHT IN REACH. SRX2.
--- NOTE | 2016-09-25 22:39 | NUR ---
DILAUDID MARINE CARGO INSPECTOR EMPTY AT THIS TIME. CHANGED TO NEW SYRINGE. PT RATES PAIN 8/10. PLAYING CARDS WITH FAMILY MEMBER AT BEDSIDE. DENIES NEEDS. BED LOW. PHONE AND CALL LIGHT IN REACH. SRX2.
[2016-09-25 23:37] VITALS: BP 168/103
--- NOTE | 2016-09-25 23:37 | NUR ---
PT SITTING UP IN BED PLAYING CARDS WITH FAMILY MEMBER AT THIS TIME. VITAL SIGNS TAKEN. BP-168/103 LEFT UPPER ARM. PT DENIES ANY INCREASE IN PAIN, DIZZINESS, OR LIGHTHEADEDNESS. WILL CONTINUE TO MONITOR. DENIES NEEDS AT THIS TIME. BED LOW. PHONE AND CALL LIGHT IN REACH. SRX2.
--- NOTE | 2016-09-26 02:56 | NUR ---
APRESALINE 10MG IN 0.5 ML IVP GIVEN FOR BP OF 173/100 PER PROTOCOL. SEE EMAR. PT DENIES PAIN OR NEEDS AT THIS TIME. WILL CONTINUE TO MONITOR.
[2016-09-26 04:03] VITALS: BP 145/77
--- NOTE | 2016-09-26 04:03 | NUR ---
PT RESTING QUIETLY AT THIS TIME. AROUSED EASILY. VITAL SIGNS TAKEN. PULSE-126. PT DENIES ANY INCREASED PAIN, LIGHT HEADEDNESS, OR DIZZINESS. WILL CONTINUE TO MONITOR. DENIES NEEDS. BED LOW. PHONE AND CALL LIGHT IN REACH. SRX2.
--- NOTE | 2016-09-26 04:51 | NUR ---
PT PULSE 119 AT THIS TIME. RESTING QUIETLY. AROUSED EASILY. DENIES NEEDS. BED LOW. PHONE AND CALL LIGHT IN REACH. SRX2.
--- NOTE | 2016-09-26 05:10 | NUR ---
PT RESTING QUIETLY AT THIS TIME. AROUSED EASILY. DENIES NEEDS. BED LOW. PHONE AND CALL LIGHT IN REACH. SRX2.
[2016-09-26 06:27] LABS: BASOPHILS 0.1 % (0.0-2.0); EOSINOPHILS 0 % (0-7); HEMATOCRIT 34.5 % (36.0-48.0); HEMOGLOBIN 11.5 g/dL (12-16); IMMATURE GRANULOCYTES 0.6 % (0-5); LYMPHOCYTES 12.4 % (15-50); MCH 35.6 pg (26.0-34.0); MCHC 33.3 g/dL (31.0-37.0); MCV 106.8 fL (80.0-100.0); MONOCYTES 8.8 % (2-11); NEUTROPHILS 78.1 % (40-80); PLATELET COUNT 280 10x3/uL (130-400); RBC 3.23 10x6/uL (4.00-5.40); RDW 14.6 % (11.5-14.5)
[2016-09-26 06:34] LABS: WBC 15.8 10x3/uL (4.8-10.8)
[2016-09-26 06:44] LABS: ALBUMIN 2.5 g/dL (3.4-5.0); ALKALINE PHOSPHATASE 80 U/L (46-116); ALT (SGPT) 11 U/L (10-68); AMYLASE - SERUM 55 U/L (25-115); BILIRUBIN - TOTAL 0.29 mg/dL (0.2-1.3); C-REACTIVE PROTEIN 4.9 mg/dL (0.0-0.9); CALCIUM 8.6 mg/dL (8.5-10.1); CHLORIDE - SERUM 106 mmol/L (98-107); LIPASE 208 U/L (73-393); PROTEIN - SERUM 5.6 g/dL (6.4-8.2); SODIUM 143 mmol/L (136-145)
[2016-09-26 06:45] LABS: CALC OSMOLALITY 282 mosm/kg (275-300); CREATININE - SERUM 0.5 mg/dL (0.6-1.3); GLUCOSE 128 mg/dL (74-106); POTASSIUM - SERUM 3.1 mmol/L (3.5-5.1); UREA NITROGEN 1 mg/dL (7-18); eGFR NON AFRICAN AMERICAN > 90 mL/min (90-120)
--- NOTE | 2016-09-26 07:45 | NUR ---
PT IS LYING IN BED SLEEPING. SHE STATES HER PAIN IS AN 8. GEN- EASILY AWAKENS. LUNGS- CLEAR. HEART- RRR. ABD- SOFT, NONTENDER. EXT- WARM AND DRY, PULSES PALP[place]LE. PT IS VOIDING WITHOUT DIFFICULTY. IV PATENT R UPPER ARM. MIDLINE IV WITH NS INFUSING AT 100 CC/HR. PT IS ON CONTACT ISOLATION. PT AND FAMILY ARE AWARE OF ISOLATION INSTRUCTIONS. BED IS LOW, SIDE RAILS UP X 2 AND CALL LLIGHT IN REACH.
[2016-09-26 08:00] VITALS: BP 139/72
--- NOTE | 2016-09-26 09:00 | NUR ---
PT UP TO VOID. BACK TO BED. PT STATES THAT SHE IS SLEEPY. DIS NOT EAT BREAKFAST.
--- NOTE | 2016-09-26 09:56 | NUR ---
PT IS SLEEPING. BED IS LOW, SIDE RAILS UP X 2 AND CALL LILGHT IN REACH.
--- NOTE | 2016-09-26 11:00 | NUR ---
BATHROOM CALL LIGHT WET OFF. WENT TO PTS ROOM TO FIND HER SITTING ON THE TOILET, VOMITING YELLOW BILE. PT BACK TO BED. VS 147/84-136-94%. PT STATES THAT SHE FEELS WEAK AND NEEDS SOME ORANGE JUICE. LUNGS- WITH WHEEZING NOTED BILATERALLY. HEART- TACHYCARDIC. ABDOMEN SOFT BS+. EXT- NO EDEMA. PT STATES THAT SHE FEELS SOB AND HAS CHEST PAIN. PT IS CLAMMY. CALLED DR IRVIN AND HE ORDERED STAT EKG, CXR, CARDIAC ENZYMES AND UPDRAFT. XOPENOX UPDRAFT ORDERED DUE TO PT BEING TACHCARDIC.
--- NOTE | 2016-09-26 11:15 | NUR ---
DR IRVIN IS HERE TO SEE PT. ORDERS NOTED. PT WILL BE TRANSFERRED TO 2124 AFTER TEST OBTAINED.
--- NOTE | 2016-09-26 11:53 | NUR ---
PT IS LYING IN BED. NO TALKING MUCH. STATES SHE FEELS WEAK. PULSE OX 99 %. FAMILY AT BEDSIDE.
[2016-09-26 12:21] LABS: TROPONIN-I 0.016 ng/mL (0.000-0.060)
--- NOTE | 2016-09-26 12:22 | NUR ---
Nutrition Follow Up: Chart reviewed. Diet has been advanced to regular. Pt was tolerating full liquids per MD note. I>O. Wt stable. Labs noted - K+ low. Meds noted. Rec continue current diet as tolerated. RD following.
--- NOTE | 2016-09-26 12:29 | NUR ---
PT IS LYING IN BED. AWAKE AND ALERT. VS 154/85-129-92% PT REQUESTED ORANGE JUICE. GIVEN.
--- NOTE | 2016-09-26 14:29 | NUR ---
THIS RN TO ROOM FOR PT CHECK. PT RATING PAIN 9/10, REQUESTING TO HAVE BOLUS DOSE OF DILAUDID THROUGH COMMUNITY HEALTH COORDINATOR. ORDER CHECKED AND NOTED TO BE . DR IRVIN PHONED AND ORDER RECEIVED TO CONTINUE ORDER FOR COMMUNITY HEALTH COORDINATOR PREVIOUSLY ORDERED, TO INCLUDE A 0.5MG BOLUS DOSE EVERY 4 HOURS PRN. ORDER UPDATED. WILL ADMIN TO PT ORDERED.
--- NOTE | 2016-09-26 14:35 | NUR ---
PT ADMIN 0.5MG BOLUS DOSE DILAUDID VIA HELP DESK ENGINEER PUMP ORDERED PRN FOR PAIN RATED 9/10. PT PROVIDED WITH SPRITE REQUESTED. PT DENIES FURTHER NEEDS AT THIS TIME. SRUx2, CL IN REACH. WILL CONT TO MONITOR.
--- NOTE | 2016-09-26 15:00 | NUR ---
HELPED TRANSPORT PT TO [facility] 2125 VIA WHEELCHAIR. SETTLED INTO ROOM AND CHANGED GOWN. TOLERATED WELL.
--- NOTE | 2016-09-26 15:00 | NUR ---
CALLED REPORT TO NURSE ON MED II. SHE WAS TRANSPORTED UPSTAIRS TODAY TO 2124
[2016-09-26 16:32] VITALS: BP 131/79
[2016-09-26 18:34] LABS: TROPONIN-I 0.018 ng/mL (0.000-0.060)
--- NOTE | 2016-09-26 19:40 | NUR ---
DILAUDID 0.5MG BOLUS VIA SAND ANALYST GIVEN FOR C/O BREAKTHROUGH PAIN. FAMILY AT BEDSIDE.
[2016-09-26 22:19] VITALS: BP 160/88
--- NOTE | 2016-09-26 22:42 | NUR ---
INITIAL ROUNDS COMPLETED AT 1920 HRS. PT REQUESTING DILAUDID BOLUS. ORDERS CHECKED AND NURSES NOTES READ. DILAUDID 0.5MG BOLUS ADMINISTERED VIA AUTOMOTIVE DETAILER. ASESSMENT COMPLETED AT [address] PE CM HR 116. 02 3LNC. LUNGS DIMINISHED IN BASES BILAT. IV TO RAC AREA WITH NS AT 30CC/HR, ZOFRAN DRIP AT 4.7CC/HR AND DILAUDID AUTOMOTIVE DETAILER 0.2MG Q 10 MINUTES WITH 4MG Q 4HR LOCKOUT. PT ON CONTACT ISO FOR MRSA INURINE. PM MEDS GIVEN. PT CURRENTLY WATCHING TV. WILL CONTINUE TO MONITOR. SR UP X2, CALL LIGHT WITHIN REACH.
--- NOTE | 2016-09-27 00:02 | NUR ---
DILAUDID 0.5MG BOLUA GIVEN FOR C/O ABD PAIN PER CRANIOLOGIST. EKG DONE. WILL CONTINUE TO MONITOR. SR UP X2, CALL LIGHT WITHIN REACH.
[2016-09-27 01:26] VITALS: BP 170/93
--- NOTE | 2016-09-27 01:57 | NUR ---
PT AWAKE WATCHING TV. NO DISTRESS NOTED. WILL CONTINUE TO MONITOR.
--- NOTE | 2016-09-27 04:11 | NUR ---
PT RESTING WITH EYES CLOSED. RESP EVEN AND REGULAR. SR UP X2, CALL LIGHT WITHIN REACH.
[2016-09-27 04:29] VITALS: BP 134/86
--- NOTE | 2016-09-27 06:48 | NUR ---
VSS THROUGHUOT NIGHT. PT STATES DILAUDID MANAGER DOMESTIC HELPS TO CONTROL ABD PAIN. NEEDS MET; WILL CONTINUE TO MONITOR.
[2016-09-27 06:52] LABS: BASOPHILS 0.1 % (0.0-2.0); EOSINOPHILS 1.4 % (0-7); HEMATOCRIT 32.5 % (36.0-48.0); HEMOGLOBIN 10.6 g/dL (12-16); IMMATURE GRANULOCYTES 0.2 % (0-5); LYMPHOCYTES 33.4 % (15-50); MCH 35.5 pg (26.0-34.0); MCHC 32.6 g/dL (31.0-37.0); MCV 108.7 fL (80.0-100.0); MONOCYTES 8.7 % (2-11); NEUTROPHILS 56.2 % (40-80); PLATELET COUNT 287 10x3/uL (130-400); RBC 2.99 10x6/uL (4.00-5.40); RDW 14.9 % (11.5-14.5)
[2016-09-27 07:02] LABS: WBC 8.1 10x3/uL (4.8-10.8)
[2016-09-27 07:21] LABS: ALBUMIN 2.2 g/dL (3.4-5.0); ALKALINE PHOSPHATASE 76 U/L (46-116); ALT (SGPT) 10 U/L (10-68); BILIRUBIN - TOTAL 0.51 mg/dL (0.2-1.3); CALC OSMOLALITY 277 mosm/kg (275-300); CALCIUM 8.5 mg/dL (8.5-10.1); CHLORIDE - SERUM 103 mmol/L (98-107); CREATINE KINASE 19 UL (21-215); CREATININE - SERUM 0.5 mg/dL (0.6-1.3); GLUCOSE 114 mg/dL (74-106); PRO BNP 620 pg/mL (0-125); PROTEIN - SERUM 5.4 g/dL (6.4-8.2); SODIUM 141 mmol/L (136-145); UREA NITROGEN 1 mg/dL (7-18); eGFR NON AFRICAN AMERICAN > 90 mL/min (90-120)
[2016-09-27 07:25] LABS: POTASSIUM - SERUM 2.5 mmol/L (3.5-5.1)
[2016-09-27 07:26] LABS: CARBON DIOXIDE 31.8 mmol/L (21.0-32.0); TROPONIN-I < 0.017 ng/mL (0.000-0.060)
--- NOTE | 2016-09-27 07:36 | NUR ---
AAOX 4 RESP UNLABORED NAD NOTED DENIES ANY NEEDSS OR DISCOMFORT
--- NOTE | 2016-09-27 08:02 | NUR ---
ASSESSMENT COMPLETED. TELEMERTY SHOWS ST. [facility] WITH NS AT KVO. DILAUDID PARACHUTE MANUFACTURING SUPERVISOR AT 0.2MG EVERY 10 MIN WOTH A 4 MIN LOCK OUT.PT IS ON ISOLATION. WILL MONITOR
[2016-09-27 09:04] VITALS: BP 165/101
[2016-09-27 12:23] VITALS: BP 132/81
--- NOTE | 2016-09-27 15:20 | NUR ---
IV BOLUS OF DILAUDID .5 GIVEN FOR RELIEF OF PAIN. CALL LIGHT IN REACH WITH SR UP. WILL MONITOR
[2016-09-27 16:19] VITALS: BP 158/96
--- NOTE | 2016-09-27 16:52 | NUR ---
LYING QUIETLY WITH EYES CLOSED. SR UP WITH CALL LIGHT IN REACH. FAMILY AT BEDSIDE
[2016-09-27 20:59] VITALS: BP 165/76
--- NOTE | 2016-09-27 23:17 | NUR ---
INITIAL ROUNDS COMPLETED AT 1920 HRS. PT DENEID ANY DISCOMFORT. ASSESSMETN COMPLETED AT [address] PER CM HR 110. IV RAC MIDLINE WIHT ZOFRAN DRIP AT 4.7CC/HR, NS AT 30CC/HR AND DILAUDID CAR SALES CONSULTANT 0.2MG Q 10 MINUTES WITH 4MG Q4HR LOCK OUT. O2 2.5LNC. LUNGS DIMINISHED INBASES BILAT. TRACE PEDAL EDEMA/ PRODUCTIVE COUGH YELLOW IN COLOR. DILAUDID BOLUS 0.5MG ADMINISTERED AT 2044 HRS. PM MEDS GIVEN. PT CURRETNLY RESTING WITH EYES CLOSED. RESP EVEN AND REGULAR. SR UP X2, CALL LIGHT WITHIN REACH.
[2016-09-28 00:12] VITALS: BP 165/80
--- NOTE | 2016-09-28 00:55 | NUR ---
PT RESTING WITH EYES CLOSED. RESP EVEN AND REGULAR. SR UP X2, CALL LIGHT WITHIN REACH.
--- NOTE | 2016-09-28 02:25 | NUR ---
PT RESTING WITH EYES CLOSED. RESP EVEN AND REGULAR. SR UP X2, CALL LIGHT WITHIN REACH.
[2016-09-28 04:00] VITALS: BP 160/82
--- NOTE | 2016-09-28 04:54 | NUR ---
PT RESTING WITH EYES CLOSED. RESP EVEN AND REGULAR. SR UP X2, CALL LIGHT WITHIN REACH.
[2016-09-28 06:28] LABS: CALC OSMOLALITY 277 mosm/kg (275-300); CALCIUM 8.9 mg/dL (8.5-10.1); CARBON DIOXIDE 33.2 mmol/L (21.0-32.0); CHLORIDE - SERUM 101 mmol/L (98-107); CREATININE - SERUM 0.5 mg/dL (0.6-1.3); GLUCOSE 114 mg/dL (74-106); POTASSIUM - SERUM 3.3 mmol/L (3.5-5.1); SODIUM 141 mmol/L (136-145); UREA NITROGEN 1 mg/dL (7-18); eGFR NON AFRICAN AMERICAN > 90 mL/min (90-120)
--- NOTE | 2016-09-28 06:44 | NUR ---
VSS THROUGHOUT NIGHT. SR/ST PER CM. PT STATES DILAUDID ACCESS NURSE CONTROLLING PAIN. NEEDS MET; WILL CONTINUE TO MONITOR.
[2016-09-28 07:15] LABS: BASOPHILS 0.1 % (0.0-2.0); EOSINOPHILS 1.1 % (0-7); HEMATOCRIT 34.5 % (36.0-48.0); HEMOGLOBIN 11.1 g/dL (12-16); IMMATURE GRANULOCYTES 0.3 % (0-5); LYMPHOCYTES 20.7 % (15-50); MCH 35.1 pg (26.0-34.0); MCHC 32.2 g/dL (31.0-37.0); MCV 109.2 fL (80.0-100.0); MEAN PLATELET VOLUME 10.1 fL (7.4-10.4); MONOCYTES 7.9 % (2-11); NEUTROPHILS 69.9 % (40-80); PLATELET COUNT 351 10x3/uL (130-400); RBC 3.16 10x6/uL (4.00-5.40); WBC 10.1 10x3/uL (4.8-10.8)
--- NOTE | 2016-09-28 08:07 | NUR ---
ASSESSMENT COMPLETED. PT IS ON CONTACT ISOLATION. TELEMERTY SHOWS ST AT 103. O2 AT 2 L/M PER NC. RIGHT AC MID LINE WITH ZOFRAN AT 4.7, NS AT 30 AND DILAUDID EDITOR GREETING CARD AT 0.2MG Q 10 MIN WITH A 4 HOUR 4MG LOCK OUT. DENIES ANY NEEDS. SR UP WITH CALL LIGHT IN REACH
[2016-09-28 08:40] VITALS: BP 128/70
--- NOTE | 2016-09-28 12:37 | NUR ---
RESTING QUIETLY RESP UNLABORED DENIES ANY NEEDS OR DISCOMFORT AT THIS TIME NAD NOTED
[2016-09-28 13:46] VITALS: BP 138/76
--- NOTE | 2016-09-28 15:30 | NUR ---
BOLUS OF DILAUDID 0.5MMG GIVEN
[2016-09-28 15:58] VITALS: BP 127/67
--- NOTE | 2016-09-28 19:01 | NUR ---
INITIAL ROUNDS COMPLETED. PT DENIES ANY DISCOMFORT. WILL CONTINUE TO MONITOR.
[2016-09-28 20:15] VITALS: BP 130/76
--- NOTE | 2016-09-28 23:21 | NUR ---
ASSESSMENT COMPLETED AT [address] PER CM HR 125. O2 2.5LNC. LUNGS DIMINISHED IN BASES BILAT. IV MIDLINE TO RAC WITH NS AT 30CC/HR, ZOFRAN AT 4.7CC/HR AND DILAUDID REVIEW MANAGER 0.2MG Q 10 MINUTES WITH 4MG QHR LO. 0.5 BOLUS Q 4HRS PRN BREAKTHROUGH PAIN. PRODUCTIVE COUGH YELLOW IN COL0R. PT TOOK BATH AT THIS TIME. PM MEDS GIVEN. DILAUDID 0.5MG BOLUS GIVEN AT 2116 HRS FOR C/O CP WITH COUGH. HAT PLACED IN BR. EXPLAINRF TO PT IMPORTANCE OF MEASURING URINE. PT STATED UNDERSTANDING. k= 2.9 AT 2300 HRS. KCL 20 MEQ IN 120CC OF CRANBERRY JUICE GIVEN AT 2305 PER ELECTROLYTE PROTCOL. PT CURRENTLY WATCHING TV. WILL CONTINUE TO MONITOR. SR UP X2, CALL LIGHT WITHIN REACH.
--- NOTE | 2016-09-29 00:28 | NUR ---
PT WATCHING TV. WILL CONTINUE TO MONITOR.
[2016-09-29 01:00] VITALS: BP 154/79
--- NOTE | 2016-09-29 01:32 | NUR ---
DILAUDID 0.5MG BOLUS GIVEN FOR C/O CHEAT AND ABD PAIN. WILL CONTINUE TO MONITOR.
--- NOTE | 2016-09-29 04:37 | NUR ---
TESSALON PERLES PO GIVEN FOR C/O COUGH. WILL CONTINUE TO MONITOR.
[2016-09-29 04:45] VITALS: BP 126/62
[2016-09-29 05:45] LABS: BASOPHILS 0.1 % (0.0-2.0); EOSINOPHILS 1.4 % (0-7); HEMATOCRIT 32.8 % (36.0-48.0); HEMOGLOBIN 10.6 g/dL (12-16); IMMATURE GRANULOCYTES 0.5 % (0-5); LYMPHOCYTES 20.9 % (15-50); MCH 35.6 pg (26.0-34.0); MCHC 32.3 g/dL (31.0-37.0); MCV 110.1 fL (80.0-100.0); MEAN PLATELET VOLUME 9.6 fL (7.4-10.4); MONOCYTES 9.2 % (2-11); NEUTROPHILS 67.9 % (40-80); PLATELET COUNT 346 10x3/uL (130-400); RBC 2.98 10x6/uL (4.00-5.40); RDW 15.3 % (11.5-14.5)
[2016-09-29 06:05] LABS: CALCIUM 8.9 mg/dL (8.5-10.1); CARBON DIOXIDE 30.3 mmol/L (21.0-32.0); CHLORIDE - SERUM 99 mmol/L (98-107); GLUCOSE 109 mg/dL (74-106); SODIUM 135 mmol/L (136-145)
[2016-09-29 06:17] LABS: CALC OSMOLALITY 266 mosm/kg (275-300); CREATININE - SERUM 0.7 mg/dL (0.6-1.3); POTASSIUM - SERUM 3.8 mmol/L (3.5-5.1); UREA NITROGEN 2 mg/dL (7-18); eGFR NON AFRICAN AMERICAN > 90 mL/min (90-120)
--- NOTE | 2016-09-29 06:31 | NUR ---
VSS THROUGHOUT NIGHT. PT STATES DILAUDID UNDERGROUND FOREMAN HELPS DIMINISH PAIN. AM K+ 3.8. NEEDS MET; WILL CONTINUE TOMONITOR.
[2016-09-29 08:16] VITALS: BP 138/68
[2016-09-29 11:38] VITALS: BP 127/70
--- NOTE | 2016-09-29 14:32 | NUR ---
PT CALLED REQUESTING HER BOLUS AND PROVIDED WITH HER 0.5MG OF DILAUDID VIA ROUGE MIXER PUMP. PT VOICED THANKS AND DENIES ANY FURTHER NEEDS AT THIS TIME. CL IN REACH, BED IN LOWEST, SIDE RAILS X2. WILL CPOC.
[2016-09-29 15:32] VITALS: BP 126/75
--- NOTE | 2016-09-29 19:30 | NUR ---
IN ISOLATION FOR MRSA IN URINE PER PROTOCOL. O2 @ 2L VIA NC IN PLACE, RESP UNLAB. TELEMETRY SHOWING HR ST PER MONITOR. UP AD CEDRICK W/O DIFF. RT UPPER ARM MIDLINE IV INTACT WITH NO R/S NOTED AT SITE. NS INFUSING W/O DIFF VIA PUMP AT 30CC/HR ALONG WITH ZOFRAN AT 4.7CC/HR VIA PUMP W/O DIFF. HOB UP SR UP X2, C/L IN REACH. CONTINUE TO MONITOR.
[2016-09-29 20:00] VITALS: BP 138/79
[2016-09-30 00:11] VITALS: BP 123/54
--- NOTE | 2016-09-30 02:56 | NUR ---
EYES CLOSED, RESP UNLAB WITH NO S/S OF ACUTE DISTRESS NOTED. C/L IN REACH, CONTINUE TO MONITOR.
[2016-09-30 04:00] VITALS: BP 122/62
[2016-09-30 08:01] VITALS: BP 123/74
--- NOTE | 2016-09-30 10:35 | NUR ---
PTS COUGH SOUNDS WORSE VERY SHALLOW RESPIRATIONS AND COUGHING UP A LOT OF YELLOW THICK PHELGM. PROVIDED PT WITH PRN TUSSIONEX AND PRN DILAUDID FOR COUGH AND CRAMPING STOMACH/CHEST PAINS. INITIATED PTS NEW BAG OF ZOFRAN FOR HER DRIP. INFUSING VIA R.UPPER ARM MIDLINE CATHETER, NS INFUSING @30ML/HR A KVO FLUSH WITH INTERMITT. ANBX. PTS DRSG CDI WITH BIOPATCH IN PLACE. PT RESTING QUIETLY IN BED AND DENIES ANY FURTHER NEEDS AT THIS TIME. CL IN REACH, BED IN LOWEST, SIDE RAILS X2. WILL CPOC.
[2016-09-30 11:44] VITALS: BP 112/64
[2016-09-30 14:49] VITALS: BP 107/49
--- NOTE | 2016-09-30 19:30 | NUR ---
INITIAL ROUNDS MADE. PT SITTING UP IN BED WATCHING TV. DENIES NEEDS OR C/O AT THIS TIME. C/O COUGH, VERY GUARDED DURING COUGH-VERY SHALLOW/WEAK COUGH. ENCOURAGED PT TO SUPPORT WITH PILLOW FOR STRONGER COUGH. SHE STATES "IT DOESN'T HELP ANYWAY".
[2016-09-30 22:26] VITALS: BP 136/70
[2016-10-01 01:25] VITALS: BP 143/82
[2016-10-01 05:19] LABS: BASOPHILS 0 % (0.0-2.0); EOSINOPHILS 0 % (0-7); HEMATOCRIT 33.6 % (36.0-48.0); HEMOGLOBIN 11.1 g/dL (12-16); IMMATURE GRANULOCYTES 0.8 % (0-5); LYMPHOCYTES 15.1 % (15-50); MCH 35.1 pg (26.0-34.0); MEAN PLATELET VOLUME 9.6 fL (7.4-10.4); MONOCYTES 2.3 % (2-11); NEUTROPHILS 81.8 % (40-80); RBC 3.16 10x6/uL (4.00-5.40); RDW 15.1 % (11.5-14.5)
[2016-10-01 05:29] LABS: MCV 106.3 fL (80.0-100.0); PLATELET COUNT 427 10x3/uL (130-400); WBC 5.2 10x3/uL (4.8-10.8)
[2016-10-01 05:33] LABS: CALCIUM 9.4 mg/dL (8.5-10.1); CARBON DIOXIDE 28.6 mmol/L (21.0-32.0); CREATININE - SERUM 0.8 mg/dL (0.6-1.3); eGFR NON AFRICAN AMERICAN 81 mL/min (90-120)
[2016-10-01 05:43] LABS: GLUCOSE 210 mg/dL (74-106); UREA NITROGEN 3 mg/dL (7-18)
[2016-10-01 05:45] VITALS: BP 133/71
[2016-10-01 05:54] LABS: CALC OSMOLALITY 276 mosm/kg (275-300); CHLORIDE - SERUM 100 mmol/L (98-107); POTASSIUM - SERUM 3.9 mmol/L (3.5-5.1); SODIUM 137 mmol/L (136-145)
[2016-10-01 07:57] VITALS: BP 112/59
[2016-10-01 11:27] VITALS: BP 136/68
[2016-10-01] MEDS ORDERED: LEVAQUIN750 MG PO (12:28)
[2016-10-01] MEDS ORDERED: PREDNISONE10 MG PO (12:29)
--- NOTE | 2016-10-01 12:49 | NUR ---
Patient Name: NINA ODELL Encounter No: [id number] : 1970 Primary Insurance: MEDICARE A & B Anticipated DC Date: 10-01-2016 Planned Disposition: Home DCP follow-up note: CM RECEIVED DISCHARGE ORDER, MET WITH PT IN ROOM TO DISCUSS DISCHARGE NEEDS AND PLANNING. CM DISCUSSED AVAILABILITY OF HOME HEALTH, REHAB SERVICES AND MEDICAL EQUIPMENT. PT DENIES DISCHARGE NEEDS. FAMILY TO TRANSPORT HOME AT DISCHARGE. PT REPORTS SHE IS NOT SURE IS SHE WILL BE DISCHARGING HOME TODAY HER NUMBERS WERE NOT TOO GOOD TODAY. PT REPORTS BEDSIDE NURSE IS AWARE. CM INFORMED PT THAT IF THINGS CHANGE AND IF PT NEEDS ANYTHING FOR DISCHARGE, TO LET CM KNOW; CONTACT INFORMATION PROVIDED TO CM. IMPORTANT MESSAGE FROM MEDICARE PROVIDED AND EXPLAINED. [facility], CASE MANAGEMENT
--- NOTE | 2016-10-01 12:52 | NUR ---
PT BEING DISCHARGED. R.UPPER ARM MIDLINE CATHETER REMOVED VIA MECHANIC FOREMAN AND INSTRUCTOR. CATH TIP FULLY INTACT. PT GETTING DRESSED WITH FAMILY AT BEDSIDE. NO FURTHER NEEDS AT THIS TIME. WILL CPOC.
== END 2016-10-01 15:36 | disposition home or self-care (01) | DRG 438 ==
LOC: D.ER 02:09 → D.WS 06:35 → D.LD 06:35 → D.M2 06:35 → D.WS 09-22 05:11 → D.M2 09-26 16:20
PROVIDERS: Family Medicine; Surgery; ADMIT Family Medicine
PROC: 0D9670Z Drainage of Stomach with Drainage Device, Via Natural or Artificial Opening (ICD-10-PCS; 2016-09-21)
PROC: 05HB33Z Insertion of Infusion Device into Right Basilic Vein, Percutaneous Approach (ICD-10-PCS; principal; 2016-09-22)
PROC: B54MZZA Ultrasonography of Right Upper Extremity Veins, Guidance (ICD-10-PCS; 2016-09-22)
DX: K85.20 Alcohol induced acute pancreatitis without necrosis or infection (principal); J18.9 Pneumonia, unspecified organism; K57.92 Diverticulitis of intestine, part unspecified, without perforation or abscess without bleeding; F17.203 Nicotine dependence unspecified, with withdrawal; K86.0 Alcohol-induced chronic pancreatitis; E78.5 Hyperlipidemia, unspecified; I10 Essential (primary) hypertension; K76.0 Fatty (change of) liver, not elsewhere classified; M06.9 Rheumatoid arthritis, unspecified; G62.9 Polyneuropathy, unspecified

== ENCOUNTER 2016-11-20 18:06 | Emergency (ER) | payer MEDICARE ==
[2016-09-22 14:46] VITALS: BMI 28.5
[~2016-11-20 18:06] MED LIST changes: +LEVAQUIN750 MG PO; +PREDNISONE10 MG PO
[2016-11-20 18:43] LABS: BASOPHILS 0.1 % (0-2); EOSINOPHILS 0.2 % (0-7); HEMATOCRIT 43.4 % (36.0-48.0); HEMOGLOBIN 14.4 g/dL (12-16); IMMATURE GRANULOCYTES 0.1 % (0-5); LYMPHOCYTES 32.5 % (15-50); MCH 37.1 pg (26.0-34.0); MCHC 33.2 g/dL (31.0-37.0); MCV 111.9 fL (80.0-100.0); MEAN PLATELET VOLUME 9.6 fL (7.4-10.4); MONOCYTES 5.7 % (2-11); NEUTROPHILS 61.4 % (40-80); RBC 3.88 10x6/uL (4.00-5.40); RDW 17.2 % (11.5-14.5); WBC 8.3 10x3/uL (4.8-10.8)
[2016-11-20 18:44] LABS: PLATELET COUNT 219 10x3/uL (130-400)
[2016-11-20 18:58] LABS: ALBUMIN 3.3 g/dL (3.4-5.0); ALKALINE PHOSPHATASE 141 U/L (46-116); ALT (SGPT) 30 U/L (10-68); AMYLASE - SERUM 99 U/L (25-115); CALC OSMOLALITY 278 mosm/kg (275-300); CALCIUM 8.8 mg/dL (8.5-10.1); CARBON DIOXIDE 25.3 mmol/L (21.0-32.0); CHLORIDE - SERUM 103 mmol/L (98-107); CREATININE - SERUM 0.7 mg/dL (0.6-1.3); GLUCOSE 111 mg/dL (74-106); LIPASE 80 U/L (73-393); POTASSIUM - SERUM 3.6 mmol/L (3.5-5.1); SODIUM 141 mmol/L (136-145); UREA NITROGEN 5 mg/dL (7-18); eGFR NON AFRICAN AMERICAN > 90 mL/min (90-120)
[2016-11-20 19:11] LABS: APPEARANCE HAZY (CLEAR); BILIRUBIN NEGATIVE (NEGATIVE); COLOR YELLOW (YELLOW); GLUCOSE NEGATIVE (NEGATIVE); KETONE NEGATIVE (NEGATIVE); LEUKOCYTE ESTERASE 1+ (NEGATIVE); NITRITE NEGATIVE (NEGATIVE); PROTEIN NEGATIVE (NEGATIVE); UROBILINOGEN NORMAL (NORMAL)
[2016-11-20 19:14] LABS: BACTERIA FEW /hpf (NONE SEEN); EPITHELIAL CELLS 0-5 /hpf (0-5); RED CELLS - URINE 0-5 /hpf (0-5); YEAST <1+ /hpf (NONE SEEN)
[2016-11-20 19:16] LABS: UDS - AMPHET NEGATIVE QUAL (NEGATIVE); UDS - BARB NEGATIVE QUAL (NEGATIVE); UDS - BENZO POSITIVE QUAL (NEGATIVE); UDS - COCAINE NEGATIVE QUAL (NEGATIVE); UDS - METH NEGATIVE QUAL (NEGATIVE); UDS - OPIATE POSITIVE QUAL (NEGATIVE); UDS - PCP NEGATIVE QUAL (NEGATIVE); UDS - THC NEGATIVE QUAL (NEGATIVE)
== END 2016-11-20 21:25 | disposition home or self-care (01) ==
LOC: D.ER 18:06
PROVIDERS: Emergency Medicine; Nurse Practitioner Family
DX: R10.13 Epigastric pain (principal); R11.2 Nausea with vomiting, unspecified; N39.0 Urinary tract infection, site not specified; K21.9 Gastro-esophageal reflux disease without esophagitis; I10 Essential (primary) hypertension; E87.6 Hypokalemia

== ENCOUNTER 2016-11-22 10:39 | Inpatient (IN) | payer MEDICARE ==
[~2016-11-22] VITALS: Ht 170.2 cm; Wt 86.2 kg
[2016-11-22 11:41] LABS: BASOPHILS 0.1 % (0-2); EOSINOPHILS 0.9 % (0-7); HEMATOCRIT 44.2 % (36.0-48.0); HEMOGLOBIN 14.6 g/dL (12-16); IMMATURE GRANULOCYTES 0.3 % (0-5); LYMPHOCYTES 21.1 % (15-50); MCH 37.2 pg (26.0-34.0); MCV 112.5 fL (80.0-100.0); MEAN PLATELET VOLUME 11.5 fL (7.4-10.4); MONOCYTES 3.9 % (2-11); NEUTROPHILS 73.7 % (40-80); RBC 3.93 10x6/uL (4.00-5.40); RDW 17.5 % (11.5-14.5); WBC 8.7 10x3/uL (4.8-10.8)
[2016-11-22 11:43] LABS: PLATELET COUNT 141 10x3/uL (130-400)
[2016-11-22 11:56] LABS: ALBUMIN 3.4 g/dL (3.4-5.0); ALKALINE PHOSPHATASE 137 U/L (46-116); ALT (SGPT) 25 U/L (10-68); AMYLASE - SERUM 91 U/L (25-115); BILIRUBIN - TOTAL 1.26 mg/dL (0.2-1.3); CALC OSMOLALITY 278 mosm/kg (275-300); CALCIUM 8.9 mg/dL (8.5-10.1); CARBON DIOXIDE 28.4 mmol/L (21.0-32.0); CHLORIDE - SERUM 103 mmol/L (98-107); CREATININE - SERUM 0.7 mg/dL (0.6-1.3); GLUCOSE 146 mg/dL (74-106); LIPASE 538 U/L (73-393); POTASSIUM - SERUM 3.7 mmol/L (3.5-5.1); SODIUM 140 mmol/L (136-145); UREA NITROGEN 4 mg/dL (7-18); eGFR NON AFRICAN AMERICAN > 90 mL/min (90-120)
[2016-11-22 12:22] LABS: APPEARANCE CLEAR (CLEAR); BILIRUBIN NEGATIVE (NEGATIVE); COLOR DK YELLOW (YELLOW); GLUCOSE NEGATIVE (NEGATIVE); KETONE NEGATIVE (NEGATIVE); LEUKOCYTE ESTERASE 1+ (NEGATIVE); NITRITE NEGATIVE (NEGATIVE); PROTEIN NEGATIVE (NEGATIVE); SPECIFIC GRAVITY 1.025 (1.005-1.020); UROBILINOGEN NORMAL (NORMAL)
[2016-11-22 12:23] LABS: EPITHELIAL CELLS 0-5 /hpf (0-5); RED CELLS - URINE OCC /hpf (0-5); WHITE CELLS - URINE 0-5 /hpf (0-5)
[2016-11-22 12:24] LABS: BACTERIA FEW /hpf (NONE SEEN)
[2016-11-22 13:59] LABS: UDS - AMPHET NEGATIVE QUAL (NEGATIVE); UDS - BARB NEGATIVE QUAL (NEGATIVE); UDS - BENZO POSITIVE QUAL (NEGATIVE); UDS - COCAINE NEGATIVE QUAL (NEGATIVE); UDS - METH NEGATIVE QUAL (NEGATIVE); UDS - OPIATE POSITIVE QUAL (NEGATIVE); UDS - PCP NEGATIVE QUAL (NEGATIVE); UDS - THC NEGATIVE QUAL (NEGATIVE)
[2016-11-22 14:09] LABS: THYROID STIMULATING HORMONE 2.48 uIU/mL (0.36-3.74)
[2016-11-22] MEDS ORDERED: MACROBID100 MG PO (14:29)
[2016-11-22] MEDS ORDERED: ZOFRAN4 MG PO (14:30)
[2016-11-22 14:43] VITALS: BP 142/73; BMI 29.8
[2016-11-22 20:00] VITALS: BP 136/82
[2016-11-23] VITALS (7 sets, daily range): BP systolic 143–207; BP diastolic 77–112
[2016-11-23 06:14] LABS: BASOPHILS 0.1 % (0-2); HEMOGLOBIN 12.6 g/dL (12-16); IMMATURE GRANULOCYTES 0.4 % (0-5); LYMPHOCYTES 16.4 % (15-50); MCH 36.7 pg (26.0-34.0); MCHC 32.3 g/dL (31.0-37.0); MCV 113.7 fL (80.0-100.0); MEAN PLATELET VOLUME 9.6 fL (7.4-10.4); MONOCYTES 6.4 % (2-11); NEUTROPHILS 74.7 % (40-80); RBC 3.43 10x6/uL (4.00-5.40); RDW 17.6 % (11.5-14.5); WBC 9.3 10x3/uL (4.8-10.8)
[2016-11-23 06:19] LABS: PLATELET COUNT 220 10x3/uL (130-400)
[2016-11-23 06:40] LABS: ALBUMIN 3.3 g/dL (3.4-5.0); ALKALINE PHOSPHATASE 121 U/L (46-116); ALT (SGPT) 19 U/L (10-68); AMYLASE - SERUM 105 U/L (25-115); CALC OSMOLALITY 280 mosm/kg (275-300); CALCIUM 8.5 mg/dL (8.5-10.1); CARBON DIOXIDE 30.7 mmol/L (21.0-32.0); CHLORIDE - SERUM 103 mmol/L (98-107); CREATININE - SERUM 0.7 mg/dL (0.6-1.3); GLUCOSE 116 mg/dL (74-106); LIPASE 1495 U/L (73-393); PROTEIN - SERUM 6.2 g/dL (6.4-8.2); SODIUM 142 mmol/L (136-145); UREA NITROGEN 5 mg/dL (7-18); eGFR NON AFRICAN AMERICAN > 90 mL/min (90-120)
[2016-11-23 06:43] LABS: POTASSIUM - SERUM 3.1 mmol/L (3.5-5.1)
--- NOTE | 2016-11-23 08:50 | HP ---
PATIENT: NINA ODELL MEDICAL RECORD: [id number] ACCOUNT: [id number] LOCATION:D.MS [id number] : 66 ADMISSION DATE: 11/22/16 HISTORY AND PHYSICAL EXAMINATION HISTORY OF PRESENT ILLNESS: Ms. Odell is a 46-year-old female that complains of abdominal pain. She has a history of chronic pancreatitis with episodes of acute pancreatitis. Her last hospitalization was a couple of months ago. She has not drink in over a year. She was in the Emergency Room a few days ago and at that time, her pancreatic enzymes were all in a normal range. Comes back in today, she states she has been throwing up for 2 weeks. Enzymes are now elevated and the head of her pancreas shows some stranding on CT. She was admitted at this time with [id number] pancreatitis. PAST MEDICAL HISTORY: Significant for chronic and recurrent pancreatitis, colitis, neuropathy, hypertension, rheumatoid arthritis. 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 ALLERGIES: LATEX. HOME MEDICATIONS: Include nitrofurantoin, which she was supposed to start, but has not taken; lisinopril 20 mg a day, metoprolol 25 mg b.i.d., gabapentin 300 mg t.i.d., tramadol ER q.i.d. p.r.n., pancreatic supplements 2 caps t.i.d. with meals, famotidine 20 mg b.i.d., Zofran p.r.n., pantoprazole 40 mg a day, prednisone 5 mg a day. FAMILY HISTORY: Noncontributory. SOCIAL HISTORY: The patient smokes, has not drink in over a year. REVIEW OF SYSTEMS: Uncertain if she has had any fever. She denies any chest pain. She has had some back pain, but no shortness of breath, abdominal pain primarily in the left upper quadrant, has had a little dysuria. No change in bowel. She has had vomiting and diarrhea. No rash. PHYSICAL EXAMINATION: HEENT: Head is normocephalic, sclerae nonicteric. NECK: Soft and supple. HEART: Regular. LUNGS: Clear. ABDOMEN: Soft. There is some tenderness in the upper quadrants, but worse on the left EXTREMITIES: Lower extremities revealed no edema. NEUROLOGIC: Without any gross focal deficits. IMPRESSION: 1. Jylep-uu-laykmot pancreatitis. 2. Hypertension. 3. Neuropathy. 4. Rheumatoid arthritis. 5. Gastroesophageal reflux disease. PLAN: Admit, IV fluids, APPLICATIONS MANAGER, n.p.o. for now, may need NG tube. See orders for HISTORY AND PHYSICAL [id number] NINA ODELL plan. TRANSINT:[id number] Voice Confirmation ID: [id number] DOCUMENT ID: [id number] WAN SOTO DO at 0850 CC: [id number] DICTATION DATE: 11/22/16 1735 MOLD STAMPER AND REPAIRER: 11/22/162021 ADM IN [place] [id number] [place] [address]
[2016-11-24 00:09] VITALS: BP 156/80; BP 177/75
[2016-11-24 04:00] VITALS: BP 149/72
[2016-11-24 06:55] LABS: BASOPHILS 0.2 % (0-2); EOSINOPHILS 2.7 % (0-7); HEMATOCRIT 37.4 % (36.0-48.0); HEMOGLOBIN 12.3 g/dL (12-16); IMMATURE GRANULOCYTES 0.4 % (0-5); LYMPHOCYTES 27.9 % (15-50); MCH 36.6 pg (26.0-34.0); MCHC 32.9 g/dL (31.0-37.0); MEAN PLATELET VOLUME 9.8 fL (7.4-10.4); MONOCYTES 6.5 % (2-11); NEUTROPHILS 62.3 % (40-80); PLATELET COUNT 199 10x3/uL (130-400); RBC 3.36 10x6/uL (4.00-5.40); RDW 17.3 % (11.5-14.5); WBC 8.5 10x3/uL (4.8-10.8)
[2016-11-24 06:58] LABS: MCV 111.3 fL (80.0-100.0)
[2016-11-24 07:20] LABS: ALBUMIN 2.8 g/dL (3.4-5.0); ALKALINE PHOSPHATASE 118 U/L (46-116); ALT (SGPT) 17 U/L (10-68); BILIRUBIN - TOTAL 0.63 mg/dL (0.2-1.3); CALCIUM 8.5 mg/dL (8.5-10.1); CARBON DIOXIDE 30.4 mmol/L (21.0-32.0); CHLORIDE - SERUM 102 mmol/L (98-107); GLUCOSE 122 mg/dL (74-106); LIPASE 581 U/L (73-393); PROTEIN - SERUM 6.2 g/dL (6.4-8.2); SODIUM 140 mmol/L (136-145)
[2016-11-24 07:23] LABS: AMYLASE - SERUM 65 U/L (25-115); CALC OSMOLALITY 276 mosm/kg (275-300); CREATININE - SERUM 0.5 mg/dL (0.6-1.3); UREA NITROGEN 3 mg/dL (7-18); eGFR NON AFRICAN AMERICAN > 90 mL/min (90-120)
[2016-11-24 07:59] VITALS: BP 136/79
[2016-11-24 08:07] LABS: INR 0.92 (0.85-1.17); PROTIME 12.2 SECONDS (11.6-15.0)
[2016-11-24 12:07] VITALS: BP 147/88
[2016-11-24 13:04] VITALS: Ht 170.2 cm; Wt 86.2 kg
[2016-11-24 16:32] VITALS: BP 168/91
[2016-11-24 20:00] VITALS: BP 167/82
[2016-11-24 22:50] LABS: APPEARANCE CLEAR (CLEAR); BILIRUBIN NEGATIVE (NEGATIVE); COLOR YELLOW (YELLOW); GLUCOSE NEGATIVE (NEGATIVE); KETONE NEGATIVE (NEGATIVE); LEUKOCYTE ESTERASE NEGATIVE (NEGATIVE); NITRITE NEGATIVE (NEGATIVE); PROTEIN NEGATIVE (NEGATIVE); UROBILINOGEN NORMAL (NORMAL)
--- NOTE | 2016-11-24 22:59 | OP ---
PATIENT NAME: NINA ODELL MEDICAL RECORD: [id number] :66 LOCATION:D.MS [id number] ADMISSION DATE:11/22/16 SURGEON: JOHANNY GATICA MD DATE OF OPERATION: 11/23/2016 SURGEON: Johanny Gatica M.D. PREOPERATIVE DIAGNOSES: 1. Chronic pancreatitis. 2. Peripheral IV access insufficiency. POSTOPERATIVE DIAGNOSES: 1. Chronic pancreatitis. 2. Peripheral IV access insufficiency. PROCEDURE PERFORMED: Left subclavian central venous catheter placement. ANESTHESIA: Local. COMPLICATIONS: None. SPECIMENS: None. The case was clean. ESTIMATED BLOOD LOSS: 5 mL. OPERATIVE COURSE: After consent was obtained, the patient was placed in supine position on her hospital bed. A shoulder roll was placed. Bed was placed in Trendelenburg position. A timeout was taken to confirm the correct patient and procedure. The left chest and neck were prepped and draped in typical sterile fashion. Left subclavian vein was cannulated on the first pass. The guidewire was placed and it was removed. Skin incision was made with 11-blade scalpel. The dilator was then passed over the wire in a standard Seldinger fashion. Then, catheter was passed in the wire in a standard Seldinger fashion. The wire was removed. All 3 ports were aspirated and flushed. A Biopatch was placed. The catheter was secured to skin with a 2-0 silk suture and a sterile Tegaderm dressing. At the end of procedure, all needle and instrument counts were correct, and immediate post-procedure chest x-ray was performed. TRANSINT:[id number] Voice Confirmation ID: [id number] DOCUMENT ID: [id number] JOHANNY GATICA MD at 2259 CC: [id number] DICTATION DATE: 11/24/16 0821 CAR WASH ATTENDANT: 11/24/16 1209 [place] [address]
--- NOTE | 2016-11-24 22:59 | CN ---
PATIENT NAME:NINA ODELL MEDICAL RECORD: [id number] : 66 LOCATION:D.MS [place] ADMIT DATE: 11/22/16 ACCOUNT: [id number] CONSULTING PHYSICIAN: JOHANNY GATICA MD REFERRING PHYSICIAN: WAN SOTO DO DATE OF CONSULTATION: 11/23/2016 SURGICAL CONSULTATION DATE OF CONSULTATION: 11/23/2016 SURGEON: Johanny Gatica MD. HISTORY OF PRESENT ILLNESS: A 46-year-old female who is admitted for recurrent chronic pancreatitis. Her last hospitalization was 2 months ago. She called her primary care office this weekend complaining of 2 weeks of vomiting and abdominal pain. The pain is constant. It fluctuates in intensity. It radiates to the back, it is currently a 6/10. Her enzymes were elevated on admission. PAST MEDICAL HISTORY: Chronic recurrent pancreatitis, colitis, neuropathy, hypertension, rheumatoid arthritis. PAST SURGICAL HISTORY: Cholecystectomy, hysterectomy, and tonsillectomy. ALLERGIES: LATEX. HOME MEDICATIONS: Macrobid, lisinopril, metoprolol, gabapentin, tramadol, ____ Pepcid, Protonix, prednisone. FAMILY HISTORY: Noncontributory. SOCIAL HISTORY: She smokes. No drinking for the last 4 years. REVIEW OF SYSTEMS: A 12-point review of systems was obtained, pertinent positive and negative as per the HPI. PHYSICAL EXAMINATION: VITAL SIGNS: Temperature 98.4, heart rate 70, respirations 16, blood pressure 165/87, saturating 98% on room air. GENERAL: This is a well-developed, well-nourished female in moderate distress. EYES: Extraocular muscles intact. PSYCHIATRIC: Alert and times 3. EAR, NOSE, AND THROAT: Normal dentition. Mucous membranes dry. NECK: Supple. CARDIOVASCULAR: Normal sinus rhythm. LUNGS: She is clear to auscultation bilaterally. She has some inspiratory wheezing. ABDOMEN: Firm. She has epigastric tenderness to palpation. She is mildly distended. She has some guarding, localized rebound in the epigastric region. SKIN: Warm and dry with normal turgor. EXTREMITIES: She is neurovascularly intact. No peripheral edema. NEUROLOGIC: She has a GCS of 15 with no focal deficits. LABORATORY DATA: Reviewed. Please see electronic medical record for full list CONSULT REPORT [id number] NINA ODELL of laboratory values. CT of the abdomen and pelvis images were also personally reviewed, agree with findings. The patient has some stranding around the head of the pancreas. IMPRESSION: This is a 46-year-old female with recurrent pancreatitis and peripheral IV accesses insufficiency. Currently, she is admitted to the hospital with no IV access for medications or IV fluids. Her last admission, she had a PICC line placed. PLAN: Urgent placement of central venous catheter for IV medications, IV fluid resuscitation, and serial lab work. Continue IV narcotics for pain control. Continue IV antiemetics. TRANSINT:[id number] Voice Confirmation ID: [id number] DOCUMENT ID: [id number] JOHANNY GATICA MD at 2259 CC: [id number] DICTATION DATE: 11/24/16818 PHOTOGRAPHIC DEVELOPER AND PRINTER: 11/24/16 1143 ADM IN [place] [id number] [place] [id number]
[2016-11-25] VITALS: BP 186/98
[2016-11-25 04:00] VITALS: BP 186/81
[2016-11-25 07:16] LABS: BASOPHILS 0.1 % (0-2); EOSINOPHILS 2.8 % (0-7); HEMATOCRIT 34.2 % (36.0-48.0); HEMOGLOBIN 11.4 g/dL (12-16); IMMATURE GRANULOCYTES 0.3 % (0-5); MCHC 33.3 g/dL (31.0-37.0); MEAN PLATELET VOLUME 9.9 fL (7.4-10.4); MONOCYTES 6.8 % (2-11); PLATELET COUNT 217 10x3/uL (130-400); RBC 3.08 10x6/uL (4.00-5.40); RDW 17.2 % (11.5-14.5); WBC 7.9 10x3/uL (4.8-10.8)
[2016-11-25 07:44] LABS: ALBUMIN 2.6 g/dL (3.4-5.0); ALKALINE PHOSPHATASE 107 U/L (46-116); ALT (SGPT) 16 U/L (10-68); BILIRUBIN - TOTAL 0.43 mg/dL (0.2-1.3); CALC OSMOLALITY 273 mosm/kg (275-300); CALCIUM 8.4 mg/dL (8.5-10.1); CHLORIDE - SERUM 101 mmol/L (98-107); CREATININE - SERUM 0.5 mg/dL (0.6-1.3); GLUCOSE 90 mg/dL (74-106); LIPASE 266 U/L (73-393); POTASSIUM - SERUM 3.1 mmol/L (3.5-5.1); PROTEIN - SERUM 5.8 g/dL (6.4-8.2); SODIUM 139 mmol/L (136-145); eGFR NON AFRICAN AMERICAN > 90 mL/min (90-120)
[2016-11-25 07:52] LABS: AMYLASE - SERUM 46 U/L (25-115); UREA NITROGEN 1 mg/dL (7-18)
[2016-11-25 08:18] VITALS: BP 125/87
[2016-11-25 11:52] VITALS: BP 157/87
[2016-11-25 16:28] VITALS: BP 167/88
[2016-11-25 20:00] VITALS: BP 181/78
[2016-11-26] VITALS: BP 173/99
[2016-11-26 04:00] VITALS: BP 163/89
[2016-11-26 05:57] LABS: BASOPHILS 0.1 % (0-2); EOSINOPHILS 1.8 % (0-7); HEMATOCRIT 33.8 % (36.0-48.0); HEMOGLOBIN 11.5 g/dL (12-16); IMMATURE GRANULOCYTES 0.5 % (0-5); LYMPHOCYTES 20.3 % (15-50); MCH 37.8 pg (26.0-34.0); MCV 111.2 fL (80.0-100.0); MEAN PLATELET VOLUME 9.4 fL (7.4-10.4); MONOCYTES 7.2 % (2-11); NEUTROPHILS 70.1 % (40-80); PLATELET COUNT 236 10x3/uL (130-400); RBC 3.04 10x6/uL (4.00-5.40); RDW 17.2 % (11.5-14.5)
[2016-11-26 06:29] LABS: ALBUMIN 2.6 g/dL (3.4-5.0); ALKALINE PHOSPHATASE 111 U/L (46-116); ALT (SGPT) 16 U/L (10-68); AMYLASE - SERUM 42 U/L (25-115); CALC OSMOLALITY 272 mosm/kg (275-300); CALCIUM 8.8 mg/dL (8.5-10.1); CARBON DIOXIDE 32.5 mmol/L (21.0-32.0); CHLORIDE - SERUM 100 mmol/L (98-107); CREATININE - SERUM 0.6 mg/dL (0.6-1.3); GLUCOSE 122 mg/dL (74-106); LIPASE 180 U/L (73-393); POTASSIUM - SERUM 3.4 mmol/L (3.5-5.1); PROTEIN - SERUM 5.9 g/dL (6.4-8.2); SODIUM 138 mmol/L (136-145); UREA NITROGEN 1 mg/dL (7-18); eGFR NON AFRICAN AMERICAN > 90 mL/min (90-120)
[2016-11-26 08:07] VITALS: BP 166/91
[2016-11-26 13:03] VITALS: BP 172/105
[2016-11-26 17:18] VITALS: BP 168/99
[2016-11-26 20:00] VITALS: BP 156/88
[2016-11-27] VITALS: BP 156/85
[2016-11-27 04:00] VITALS: BP 154/89
[2016-11-27 07:15] LABS: BASOPHILS 0.1 % (0-2); EOSINOPHILS 2.5 % (0-7); HEMATOCRIT 32.6 % (36.0-48.0); HEMOGLOBIN 10.6 g/dL (12-16); IMMATURE GRANULOCYTES 0.6 % (0-5); MCH 36.2 pg (26.0-34.0); MCHC 32.5 g/dL (31.0-37.0); MCV 111.3 fL (80.0-100.0); MEAN PLATELET VOLUME 9.5 fL (7.4-10.4); MONOCYTES 9.4 % (2-11); NEUTROPHILS 57.4 % (40-80); PLATELET COUNT 277 10x3/uL (130-400); RBC 2.93 10x6/uL (4.00-5.40); RDW 17.4 % (11.5-14.5)
[2016-11-27 07:23] LABS: WBC 7.2 10x3/uL (4.8-10.8)
[2016-11-27 07:35] LABS: ALBUMIN 2.3 g/dL (3.4-5.0); ALKALINE PHOSPHATASE 106 U/L (46-116); ALT (SGPT) 14 U/L (10-68); AMYLASE - SERUM 39 U/L (25-115); BILIRUBIN - TOTAL 0.29 mg/dL (0.2-1.3); CALC OSMOLALITY 276 mosm/kg (275-300); CALCIUM 8.7 mg/dL (8.5-10.1); CARBON DIOXIDE 32.3 mmol/L (21.0-32.0); CHLORIDE - SERUM 104 mmol/L (98-107); CREATININE - SERUM 0.6 mg/dL (0.6-1.3); GLUCOSE 101 mg/dL (74-106); LIPASE 178 U/L (73-393); POTASSIUM - SERUM 3.5 mmol/L (3.5-5.1); PROTEIN - SERUM 5.3 g/dL (6.4-8.2); SODIUM 141 mmol/L (136-145); UREA NITROGEN 1 mg/dL (7-18); eGFR NON AFRICAN AMERICAN > 90 mL/min (90-120)
[2016-11-27 08:09] VITALS: BP 164/87
[2016-11-27 20:00] VITALS: BP 137/70
[2016-11-28] VITALS: BP 157/83
[2016-11-28 04:00] VITALS: BP 141/79
[2016-11-28 05:19] LABS: BASOPHILS 0.1 % (0-2); EOSINOPHILS 1.8 % (0-7); HEMATOCRIT 33.4 % (36.0-48.0); IMMATURE GRANULOCYTES 0.6 % (0-5); LYMPHOCYTES 23.2 % (15-50); MCH 36.4 pg (26.0-34.0); MCHC 32.9 g/dL (31.0-37.0); MCV 110.6 fL (80.0-100.0); MEAN PLATELET VOLUME 9.4 fL (7.4-10.4); MONOCYTES 8.3 % (2-11); PLATELET COUNT 323 10x3/uL (130-400); RBC 3.02 10x6/uL (4.00-5.40); RDW 17.7 % (11.5-14.5)
[2016-11-28 05:23] LABS: WBC 11.1 10x3/uL (4.8-10.8)
[2016-11-28 05:41] LABS: ALBUMIN 2.3 g/dL (3.4-5.0); ALKALINE PHOSPHATASE 99 U/L (46-116); ALT (SGPT) 13 U/L (10-68); AMYLASE - SERUM 42 U/L (25-115); CALC OSMOLALITY 277 mosm/kg (275-300); CARBON DIOXIDE 31.3 mmol/L (21.0-32.0); CHLORIDE - SERUM 102 mmol/L (98-107); CREATININE - SERUM 0.7 mg/dL (0.6-1.3); GLUCOSE 97 mg/dL (74-106); LIPASE 123 U/L (73-393); PROTEIN - SERUM 5.5 g/dL (6.4-8.2); SODIUM 141 mmol/L (136-145); eGFR NON AFRICAN AMERICAN > 90 mL/min (90-120)
[2016-11-28 05:44] LABS: UREA NITROGEN 3 mg/dL (7-18)
[2016-11-28 08:13] VITALS: BP 140/62
[2016-11-28] MEDS ORDERED: CATAPRES0.1 MG PO (10:27)
[2016-11-28] MEDS ORDERED: HYDROCODONE-APA1 TAB PO (10:52)
[2016-11-28 11:58] VITALS: BP 164/81
== END 2016-11-28 14:30 | disposition home or self-care (01) | DRG 439 ==
LOC: D.ER 10:39 → D.MS 13:39
PROVIDERS: Emergency Medicine; Family Medicine; ADMIT Family Medicine
PROC: 0D9670Z Drainage of Stomach with Drainage Device, Via Natural or Artificial Opening (ICD-10-PCS; principal; 2016-11-24)
DX: K85.90 Acute pancreatitis without necrosis or infection, unspecified (principal); F17.203 Nicotine dependence unspecified, with withdrawal; K86.1 Other chronic pancreatitis; I10 Essential (primary) hypertension; M06.9 Rheumatoid arthritis, unspecified; K21.9 Gastro-esophageal reflux disease without esophagitis; R13.10 Dysphagia, unspecified; K59.09 Other constipation; R07.9 Chest pain, unspecified

== ENCOUNTER 2017-01-20 17:32 | Inpatient (IN) | payer MEDICARE ==
[~2017-01-20] VITALS: Ht 170.2 cm; Wt 83.9 kg
[~2017-01-20 17:32] MED LIST changes: +CATAPRES0.1 MG PO; +MACROBID100 MG PO; +ZOFRAN4 MG PO
[2017-01-20 19:45] LABS: BASOPHILS 0.1 % (0-2); EOSINOPHILS 0.4 % (0-7); HEMATOCRIT 41.2 % (36.0-48.0); HEMOGLOBIN 13.8 g/dL (12-16); IMMATURE GRANULOCYTES 0.5 % (0-5); LYMPHOCYTES 24.2 % (15-50); MCH 37.4 pg (26.0-34.0); MCHC 33.5 g/dL (31.0-37.0); MCV 111.7 fL (80.0-100.0); MONOCYTES 5.7 % (2-11); NEUTROPHILS 69.1 % (40-80); PLATELET COUNT 310 10x3/uL (130-400); RBC 3.69 10x6/uL (4.00-5.40); RDW 16.5 % (11.5-14.5); WBC 10.3 10x3/uL (4.8-10.8)
[2017-01-20 19:59] LABS: ALBUMIN 3.4 g/dL (3.4-5.0); ALKALINE PHOSPHATASE 130 U/L (46-116); ALT (SGPT) 17 U/L (10-68); CALC OSMOLALITY 278 mosm/kg (275-300); CALCIUM 9.3 mg/dL (8.5-10.1); CARBON DIOXIDE 25.9 mmol/L (21.0-32.0); CHLORIDE - SERUM 102 mmol/L (98-107); CREATININE - SERUM 0.6 mg/dL (0.6-1.3); GLUCOSE 107 mg/dL (74-106); POTASSIUM - SERUM 3.5 mmol/L (3.5-5.1); SODIUM 141 mmol/L (136-145); UREA NITROGEN 6 mg/dL (7-18); eGFR NON AFRICAN AMERICAN > 90 mL/min (90-120)
[2017-01-20 20:11] LABS: CREATINE KINASE 40 UL (21-215); PRO BNP 105 pg/mL (0-125)
[2017-01-20 20:12] LABS: TROPONIN-I < 0.017 ng/mL (0.000-0.060)
[2017-01-21 00:48] LABS: BASOPHILS 0.1 % (0-2); EOSINOPHILS 0 % (0-7); HEMATOCRIT 39.4 % (36.0-48.0); IMMATURE GRANULOCYTES 0.3 % (0-5); LYMPHOCYTES 6.2 % (15-50); MCV 112.3 fL (80.0-100.0); MEAN PLATELET VOLUME 9.4 fL (7.4-10.4); MONOCYTES 0.6 % (2-11); NEUTROPHILS 92.8 % (40-80); PLATELET COUNT 283 10x3/uL (130-400); RBC 3.51 10x6/uL (4.00-5.40); RDW 16.4 % (11.5-14.5); WBC 9.5 10x3/uL (4.8-10.8)
[2017-01-21 00:52] LABS: CALCIUM 8.9 mg/dL (8.5-10.1); CARBON DIOXIDE 22.6 mmol/L (21.0-32.0); CHLORIDE - SERUM 102 mmol/L (98-107); POTASSIUM - SERUM 3.2 mmol/L (3.5-5.1); SODIUM 137 mmol/L (136-145); UREA NITROGEN 6 mg/dL (7-18)
[2017-01-21 00:54] LABS: CALC OSMOLALITY 276 mosm/kg (275-300); CREATININE - SERUM 0.4 mg/dL (0.6-1.3); GLUCOSE 195 mg/dL (74-106); eGFR NON AFRICAN AMERICAN > 90 mL/min (90-120)
--- NOTE | 2017-01-21 03:30 | NUR ---
RECEIVED PT FROM ER, PT ALERT AND ORIENTED.
[2017-01-21 04:00] VITALS: BP 142/95
[2017-01-21 04:23] VITALS: BP 142/95; BMI 29.0
--- NOTE | 2017-01-21 07:32 | NUR ---
SITTING UP IN BED, DENIES NEEDS, REQUESTED IV BE MOVED, MARGY RODRIGUEZ CALLED, IV CHANGED FROM RIGHT AC TIP INTACT, TO LEFT HAND, BED LOWEST POSITION, CALL LIGHT IN REACH, WILL CONTINUE TO MONITOR
[2017-01-21 08:07] VITALS: BP 137/75
[2017-01-21 12:17] VITALS: BP 138/71
--- NOTE | 2017-01-21 13:21 | NUR ---
IV TO LEFT HAND PATENT WITH NO S/S OF INFILTRATION PRESENT. RESPIRATIONS EVEN AND NON LABORED. CALL LIGHT IN REACH, WILL CONTINUE WITH PLAN OF CARE.
[2017-01-21 14:01] LABS: UDS - AMPHET NEGATIVE QUAL (NEGATIVE); UDS - BARB NEGATIVE QUAL (NEGATIVE); UDS - BENZO NEGATIVE QUAL (NEGATIVE); UDS - COCAINE NEGATIVE QUAL (NEGATIVE); UDS - METH NEGATIVE QUAL (NEGATIVE); UDS - OPIATE POSITIVE QUAL (NEGATIVE); UDS - PCP NEGATIVE QUAL (NEGATIVE); UDS - THC NEGATIVE QUAL (NEGATIVE)
[2017-01-21 14:06] LABS: APPEARANCE CLEAR (CLEAR); BILIRUBIN NEGATIVE (NEGATIVE); COLOR DK YELLOW (YELLOW); GLUCOSE NEGATIVE (NEGATIVE); KETONE NEGATIVE (NEGATIVE); LEUKOCYTE ESTERASE NEGATIVE (NEGATIVE); NITRITE NEGATIVE (NEGATIVE); PROTEIN NEGATIVE (NEGATIVE); SPECIFIC GRAVITY 1.015 (1.005-1.020); UROBILINOGEN NORMAL (NORMAL)
[2017-01-21 14:07] LABS: BACTERIA MODERATE /hpf (NONE SEEN); EPITHELIAL CELLS 0-5 /hpf (0-5); MUCUS <1+ /lpf (NONE SEEN); RED CELLS - URINE RARE /hpf (0-5); WHITE CELLS - URINE RARE /hpf (0-5)
--- NOTE | 2017-01-21 14:10 | NUR ---
Patient Name: NINA ODELL Admission Status: ER Accout number: [id number] Admission Date: 01-21-2017 : 1970 Admission Diagnosis:PNEUMONIA, UNSPECIFIED ORGANISM Attending: JUAN Current LOS: 1 Anticipated DC Date: 01-26-2017 Planned Disposition: Home or Self Care Primary Insurance: MEDICARE A & B Discharge Planning Comments: CM MET WITH PATIENT REGARDING D/C NEEDS AND PLANS. PATIENT STATED SHE LIVES WITH HER SON (VERONICA) AND HE WILL DRIVE HER HOME AT DISCHARGE. PATIENT STATED THERE ARE NO STEPS OR STAIRS AT HER HOME. PATIENT IS INDEPENDENT WITH HER CARE AND HAS A WALKER, SHOWER CHAIR, AND RAISED TOILET SEAT AT HOME. PATIENT STATED HER PCP IS DR. IRVIN AND PHARMACY IS [facility] ON [email or web address]. PATIENT DOES NOT WANT HOME HEALTH AT THIS TIME. CM WILL CONTINUE TO FOLLOW PATIENT WITH D/C NEEDS AND PLANS. PCP DR. ALBARO STRINGER ON [address] [phone] VERONICA (SON) [phone] Health Information Coder: Bev Allan Is the patient Alert and Oriented? Yes 0 * How many steps to enter\exit or inside your home? 0 0 * PCP DR. IRVIN 0 * [facility] [address] [facility] * Preadmission Environment Home with Family 0 * ADLs Independent 0 * Equipment Elevated [place] Seat Shower Chair Walker 0 * List name and contact numbers for known caregivers / representatives who currently or will assist patient after discharge: VERONICA (SON) [phone] 0 * Community resources currently utilized None 0 * Additional services required to return to the preadmission environment? Yes 0 * Can the patient safely return to the preadmission environment? Yes 0 * Has this patient been hospitalized within the prior 30 days at any hospital? No 0 Grand Total: 0
[2017-01-21 16:14] VITALS: BP 136/63
--- NOTE | 2017-01-21 19:52 | NUR ---
PATIENT RESTING IN BED AND DENIES NEEDS AT THIS TIME. BED IN LOWEST POSITION AND CALL LIGHT WITHIN REACH. ENCOURAGED THE PATIENT TO CALL IF SHE HAS NEEDS.
[2017-01-21 20:00] VITALS: BP 101/51
[2017-01-22] VITALS: BP 99/53
[2017-01-22 04:00] VITALS: BP 146/72
--- NOTE | 2017-01-22 08:10 | NUR ---
AWAKE AND ALERT. ORIENTED X3. NO C/O AT THIS TIME. LUNGS ARE DIMINISHED ON RIGHT WITH EXPIRATORY WHEEZES NOTED TO LEFT UPPER LOBE. REPORTS PRODUCTIVE COUGH WITH YELLOWISH SPUTUM. WILL MONITOR. SKIN IS INTACT WITHOUT REDNESS. SCD'S IN PLACE. IV TO LEFT HAND IS PATENT WITHOUT REDNESS AT INSERTION SITE. DENIES NEEDS.
[2017-01-22 08:18] VITALS: BP 165/86
--- NOTE | 2017-01-22 10:45 | NUR ---
REQUESTED AND GIVNE 4MG MORPHINE SLOW IVP FOR C/O CHEST PAIN. WILL MONITOR.
--- NOTE | 2017-01-22 11:30 | NUR ---
ALSO C/O SOME NAUSEA. GIVEN 4MG ZOFRAN SLOW IVP FOR SAME. WILL MONITOR.
--- NOTE | 2017-01-22 11:30 | NUR ---
VERY LITTLE RELIEF WITH USE OF MORPHINE. GIVEN 30MG TORADOL SLOW IVP FOR C/O PAIN. WILL MONITOR.
[2017-01-22 12:49] VITALS: BP 146/85
--- NOTE | 2017-01-22 14:55 | NUR ---
REQUESTED AND GIVEN 4MG MORPHINE SLOW IVP FOR C/O CHEST PAIN R/T COUGHING. WILL MONITOR.
--- NOTE | 2017-01-22 16:05 | NUR ---
REPORTED VERY LITTLE RELIEF WITH MORPHINE. GIVEN 30MG TORADOL SLOW IVP FOR SAME. WILL MONITOR.
[2017-01-22 16:10] VITALS: BP 157/80
--- NOTE | 2017-01-22 17:00 | NUR ---
REPORTS SOME RELIEF WITH TORADOL. ALSO AGREED TO LET LAB DRAW BLOOD AT THIS TIME. SKYLAR SERVED IN ROOM.
[2017-01-22 18:26] LABS: BASOPHILS 0.1 % (0-2); EOSINOPHILS 0.8 % (0-7); HEMATOCRIT 32.5 % (36.0-48.0); HEMOGLOBIN 10.5 g/dL (12-16); IMMATURE GRANULOCYTES 0.3 % (0-5); LYMPHOCYTES 11.5 % (15-50); MCH 36.2 pg (26.0-34.0); MCHC 32.3 g/dL (31.0-37.0); MCV 112.1 fL (80.0-100.0); MEAN PLATELET VOLUME 9.7 fL (7.4-10.4); MONOCYTES 2.8 % (2-11); NEUTROPHILS 84.5 % (40-80); PLATELET COUNT 237 10x3/uL (130-400); RDW 16.2 % (11.5-14.5); WBC 11.2 10x3/uL (4.8-10.8)
--- NOTE | 2017-01-22 18:47 | NUR ---
REQUESTED AND GIVEN 4MG ZOFRAN SLOW IVP FOR C/O NAUSEA.
[2017-01-22 18:53] LABS: ALKALINE PHOSPHATASE 99 U/L (46-116); ALT (SGPT) 18 U/L (10-68); BILIRUBIN - TOTAL 0.43 mg/dL (0.2-1.3); CALC OSMOLALITY 282 mosm/kg (275-300); CALCIUM 8.2 mg/dL (8.5-10.1); CARBON DIOXIDE 24.1 mmol/L (21.0-32.0); CHLORIDE - SERUM 107 mmol/L (98-107); CKMB 0.3 U/L (0.0-3.6); CREATINE KINASE 25 UL (21-215); CREATININE - SERUM 0.6 mg/dL (0.6-1.3); GLUCOSE 152 mg/dL (74-106); POTASSIUM - SERUM 3.4 mmol/L (3.5-5.1); PROTEIN - SERUM 5.6 g/dL (6.4-8.2); SODIUM 142 mmol/L (136-145); UREA NITROGEN 3 mg/dL (7-18)
[2017-01-22 18:54] LABS: ALBUMIN 2.5 g/dL (3.4-5.0); TROPONIN-I < 0.017 ng/mL (0.000-0.060); eGFR NON AFRICAN AMERICAN > 90 mL/min (90-120)
[2017-01-22 20:00] VITALS: BP 157/87
[2017-01-22 23:20] LABS: CKMB 0.4 U/L (0.0-3.6); CREATINE KINASE 24 UL (21-215); TROPONIN-I < 0.017 ng/mL (0.000-0.060)
[2017-01-23 04:00] VITALS: BP 151/75
--- NOTE | 2017-01-23 05:21 | NUR ---
PATIENT RESTING IN BED AND DENIES NEEDS AT THIS TIME. BED IN LOWEST POSITION AND CALL LIGHT WITHIN REACH. ENCOURAGED THE PATIENT TO CALL IF SHE HAS FURTHER NEEDS.
[2017-01-23 06:23] LABS: BASOPHILS 0 % (0-2); EOSINOPHILS 0 % (0-7); HEMATOCRIT 33.7 % (36.0-48.0); HEMOGLOBIN 10.8 g/dL (12-16); IMMATURE GRANULOCYTES 0.4 % (0-5); LYMPHOCYTES 4.5 % (15-50); MCH 36.1 pg (26.0-34.0); MCV 112.7 fL (80.0-100.0); MEAN PLATELET VOLUME 10.2 fL (7.4-10.4); MONOCYTES 3.9 % (2-11); NEUTROPHILS 91.2 % (40-80); RBC 2.99 10x6/uL (4.00-5.40); RDW 16.1 % (11.5-14.5); WBC 13.6 10x3/uL (4.8-10.8)
[2017-01-23 06:25] LABS: PLATELET COUNT 304 10x3/uL (130-400)
[2017-01-23 06:51] LABS: ALBUMIN 2.6 g/dL (3.4-5.0); ALKALINE PHOSPHATASE 106 U/L (46-116); ALT (SGPT) 19 U/L (10-68); BILIRUBIN - TOTAL 0.32 mg/dL (0.2-1.3); CALCIUM 8.8 mg/dL (8.5-10.1); CARBON DIOXIDE 25.1 mmol/L (21.0-32.0); CHLORIDE - SERUM 106 mmol/L (98-107); CREATINE KINASE 26 UL (21-215); CREATININE - SERUM 0.5 mg/dL (0.6-1.3); GLUCOSE 178 mg/dL (74-106); POTASSIUM - SERUM 3.9 mmol/L (3.5-5.1); PROTEIN - SERUM 5.9 g/dL (6.4-8.2); SODIUM 142 mmol/L (136-145); eGFR NON AFRICAN AMERICAN > 90 mL/min (90-120)
[2017-01-23 06:53] LABS: CALC OSMOLALITY 283 mosm/kg (275-300); UREA NITROGEN 5 mg/dL (7-18)
--- NOTE | 2017-01-23 07:41 | NUR ---
AWAKE AND ALERT. ORIENTED X3. STILL C/O PAIN IN CHEST. STATED IT FEELS LIKE SOMETHING IS SITTING ON MY CHEST. O2 SAT 98% ON 2LNC. OCCASSIONAL PRODUCTIVE COUGH NOTED. SKIN IS INTACT WITHOUT REDNESS. IV TO LEFT HAND IS SLIGHTLY REDDENED BUT NOT PAINFUL OF SWOLLEN. WILL MONITOR. DENIES NEEDS.
[2017-01-23 08:55] VITALS: BP 136/88
--- NOTE | 2017-01-23 09:45 | NUR ---
REQUESTED AND GIVNE 4MG MORPHINE SLOW IVP FOR C/O CHEST PAIN LEVEL 7. WILL MONITOR.
--- NOTE | 2017-01-23 12:35 | NUR ---
REQUSTED AND GIVEN 30MG TORADOL SLOW IVP FOR C/O CHEST PAIN LEVEL 6. WILL MONITOR. LUNCH SERVED IN ROOM. ATE ONLY A FEW BITES.
[2017-01-23 13:07] VITALS: BP 180/102
--- NOTE | 2017-01-23 13:45 | NUR ---
PICC LINE PLACED PER MARGY RODRIGUEZ. REQUESTED AND GIVEN 4MG MORPHINE SLOW IVP FOR C/O CHEST PAIN LEVEL 6. WILL MONITOR.
[2017-01-23 16:18] VITALS: BP 156/81
--- NOTE | 2017-01-23 17:57 | NUR ---
ATE A FEW BITES OF SUPPER. SAID IT WAS TO HARD TO EAT AND BREATHE AT THIS TIME. NO CHANGES NOTED.
[2017-01-23 20:00] VITALS: BP 166/96
[2017-01-24] VITALS: BP 169/106
--- NOTE | 2017-01-24 01:52 | NUR ---
NEW ORDER FOR VIBRAMYCIN, CALLED ALEXANDER RESISTANCE BRAZER.
--- NOTE | 2017-01-24 03:16 | NUR ---
PATIENT IS AWAKE AND ALERT. PATIENT DENIES NEEDS AT THIS TIME. IN BED WATCHING TV.
[2017-01-24 04:00] VITALS: BP 168/93
[2017-01-24 06:25] LABS: BASOPHILS 0 % (0-2); EOSINOPHILS 0 % (0-7); HEMATOCRIT 33.6 % (36.0-48.0); HEMOGLOBIN 10.9 g/dL (12-16); IMMATURE GRANULOCYTES 0.4 % (0-5); LYMPHOCYTES 8.9 % (15-50); MCH 36.1 pg (26.0-34.0); MCHC 32.4 g/dL (31.0-37.0); MCV 111.3 fL (80.0-100.0); MEAN PLATELET VOLUME 9.6 fL (7.4-10.4); MONOCYTES 3.7 % (2-11); PLATELET COUNT 314 10x3/uL (130-400); RBC 3.02 10x6/uL (4.00-5.40); RDW 16.1 % (11.5-14.5); WBC 12.3 10x3/uL (4.8-10.8)
[2017-01-24 06:53] LABS: ALBUMIN 2.4 g/dL (3.4-5.0); ALKALINE PHOSPHATASE 95 U/L (46-116); ALT (SGPT) 16 U/L (10-68); CALC OSMOLALITY 280 mosm/kg (275-300); CALCIUM 9.2 mg/dL (8.5-10.1); CARBON DIOXIDE 30.1 mmol/L (21.0-32.0); CHLORIDE - SERUM 104 mmol/L (98-107); CREATININE - SERUM 0.5 mg/dL (0.6-1.3); GLUCOSE 150 mg/dL (74-106); POTASSIUM - SERUM 3.6 mmol/L (3.5-5.1); PROTEIN - SERUM 6.1 g/dL (6.4-8.2); SODIUM 141 mmol/L (136-145); UREA NITROGEN 4 mg/dL (7-18); eGFR NON AFRICAN AMERICAN > 90 mL/min (90-120)
[2017-01-24 08:15] LABS: IMMUNOGLOBULIN E 172 IU/mL (0-100)
--- NOTE | 2017-01-24 08:32 | NUR ---
SCHEDULED MEDICATIONS ADMINISTERED AT THIS TIME. PT ON 6L OF OXYGEN VIA NC. ASSESSMENT PERFORMED PER FLOWSHEET. RIGHT UPPER ARM PICC PATENT WITH NO S/S OF INFILTRATION PRESENT. PROVIDED PT WITH BEDSIDE COMMODE AND SPUTUM COLLECTION CONTAINER. INSTRUCTED PT THAT WE NEEDED A URINE AND SPUTUM SAMPLE WHEN SHE WAS ABLE TO PROVIDE. PT VERBALIZED UNDERSTANDING. PT REFUSES SCD'S. CALL LIGHT IN REACH, WILL CONTINUE WITH PLAN OF CARE.
[2017-01-24 09:13] VITALS: BP 177/109
--- NOTE | 2017-01-24 10:46 | NUR ---
PRN MORPHINE ADMINISTERED FOR CHEST PAIN SECONDARY TO PNEUMONIA RATED 9/10 ON PAIN SCALE. OXYGEN REMAINS ON 6L VIA NC. CALL LIGHT IN REACH, WILL CONTINUE WITH PLAN OF CARE.
[2017-01-24 13:11] VITALS: BP 174/109
--- NOTE | 2017-01-24 13:15 | NUR ---
PRN TORADOL ADMINISTERED AT THIS TIME FOR PAIN 9/10 IN PT'S CHEST SECONDARY TO PNEUMONIA. CALL LIGHT IN REACH, WILL CONTINUE WITH PLAN OF CARE.
[2017-01-24 18:05] VITALS: BP 163/101
--- NOTE | 2017-01-24 19:40 | NUR ---
PATIENT RESTING IN BED WITH [place] AT BEDSIDE ASSESSING VITALS. PATIENT DENIES NEEDS AT THIS TIME. BED IN LOWEST POSITION AND CALL LIGHT WITHIN REACH. ENCOURAGED THE PATIENT TO CALL IF SHE HAS NEEDS.
[2017-01-24 20:00] VITALS: BP 177/111
[2017-01-25 04:00] VITALS: BP 175/115
[2017-01-25 05:49] LABS: BASOPHILS 0.1 % (0-2); EOSINOPHILS 0 % (0-7); HEMATOCRIT 39.2 % (36.0-48.0); HEMOGLOBIN 12.8 g/dL (12-16); IMMATURE GRANULOCYTES 0.5 % (0-5); MCHC 32.7 g/dL (31.0-37.0); MCV 110.1 fL (80.0-100.0); MEAN PLATELET VOLUME 10.4 fL (7.4-10.4); MONOCYTES 5.2 % (2-11); NEUTROPHILS 88.2 % (40-80); PLATELET COUNT 326 10x3/uL (130-400); RBC 3.56 10x6/uL (4.00-5.40); RDW 15.8 % (11.5-14.5); WBC 13.9 10x3/uL (4.8-10.8)
[2017-01-25 05:57] LABS: ALBUMIN 2.5 g/dL (3.4-5.0); ALKALINE PHOSPHATASE 113 U/L (46-116); CALCIUM 9.2 mg/dL (8.5-10.1); CARBON DIOXIDE 28.1 mmol/L (21.0-32.0); CHLORIDE - SERUM 100 mmol/L (98-107); GLUCOSE 193 mg/dL (74-106); POTASSIUM - SERUM 3.7 mmol/L (3.5-5.1); PROTEIN - SERUM 6.5 g/dL (6.4-8.2); SODIUM 137 mmol/L (136-145)
[2017-01-25 06:02] LABS: ALT (SGPT) 26 U/L (10-68); CALC OSMOLALITY 276 mosm/kg (275-300); CREATININE - SERUM 0.7 mg/dL (0.6-1.3); UREA NITROGEN 7 mg/dL (7-18); eGFR NON AFRICAN AMERICAN > 90 mL/min (90-120)
--- NOTE | 2017-01-25 07:35 | NUR ---
AM ROUNDS PT IN BED, ASKING FOR PAIN MED AND NUASEA MEDS. WILL PROVIDED PT WITH TORADOL AND ZOFRAN. PT DENIES ANY OTHER NEEDS AT THIS TIME. BED LOW AND WHEELS LOCKED, O2 AT 6L NC. BEDRAILS X2, RT PICC INFUSING NS AT 50CC/HR. PT DENIES ANY NEEDS AT THIS TIME. CALL LIGHT IN REACH, NAD NOTED, WILL CONTINUE TO MONITOR.
[2017-01-25 09:12] VITALS: BP 153/97
--- NOTE | 2017-01-25 09:12 | NUR ---
AM MEDS GIVEN. PT IN BED, WATCHING TV, DENIES ANY NEEDS AT THIS TIME. CALL LIGHT IN REACH, NAD NOTED, WILL CONTINUE TO MONITOR.
--- NOTE | 2017-01-25 10:37 | NUR ---
2MG OF DILAUDID GIVEN FOR PAIN LEVEL OF 7/10. PT IN BED, GETTING UPDRAFT, DENIES ANY OTHER NEEDS AT THIS TIME. CALL JAED SHELLEY, NAD NOTED, WILL CONTINUE TO MONITOR.
--- NOTE | 2017-01-25 14:51 | NUR ---
2MG OF DILAUDID GIVEN FOR PAIN LEVEL OF 8/10. PT IN BED, GETTING UPDRAFT AT THIS TIME. DENIES ANY OTHER NEEDS AT THIS TIME. CALL LIGHT IN REACH, NAD NOTED, WILL CONTINUE TO MONITOR.
--- NOTE | 2017-01-25 18:33 | NUR ---
2MG OF DILAUDID GIVEN FOR PAIN LEVEL OF 8/10. PT DENIES ANY OTHER NEEDS AT THIS TIME. CALL LIGHT IN REACH,NAD NOTED, WILL CONTINUE TO MONITOR.
[2017-01-25 21:39] VITALS: BP 152/91
[2017-01-26 04:00] VITALS: BP 162/99
[2017-01-26 04:34] LABS: BASOPHILS 0.1 % (0-2); EOSINOPHILS 0 % (0-7); HEMATOCRIT 40.8 % (36.0-48.0); HEMOGLOBIN 13.4 g/dL (12-16); IMMATURE GRANULOCYTES 0.9 % (0-5); LYMPHOCYTES 7.6 % (15-50); MCH 36.2 pg (26.0-34.0); MCHC 32.8 g/dL (31.0-37.0); MCV 110.3 fL (80.0-100.0); MEAN PLATELET VOLUME 10.5 fL (7.4-10.4); MONOCYTES 4.2 % (2-11); NEUTROPHILS 87.2 % (40-80); PLATELET COUNT 311 10x3/uL (130-400); RDW 15.8 % (11.5-14.5); WBC 10.6 10x3/uL (4.8-10.8)
[2017-01-26 05:23] LABS: ALBUMIN 2.5 g/dL (3.4-5.0); ALKALINE PHOSPHATASE 116 U/L (46-116); ALT (SGPT) 25 U/L (10-68); BILIRUBIN - TOTAL 0.44 mg/dL (0.2-1.3); CALC OSMOLALITY 278 mosm/kg (275-300); CALCIUM 9.4 mg/dL (8.5-10.1); CHLORIDE - SERUM 100 mmol/L (98-107); CREATININE - SERUM 0.6 mg/dL (0.6-1.3); GLUCOSE 156 mg/dL (74-106); POTASSIUM - SERUM 4.3 mmol/L (3.5-5.1); PROTEIN - SERUM 6.6 g/dL (6.4-8.2); SODIUM 138 mmol/L (136-145); UREA NITROGEN 12 mg/dL (7-18); eGFR NON AFRICAN AMERICAN > 90 mL/min (90-120)
--- NOTE | 2017-01-26 08:00 | NUR ---
REPORT RECIEVED ASSUMED CARE. PATIENT IN BED WITH IV INTACT. NO COMPLAINTS AT THIS TIME. CALL LIGHT WITHIN REACH.
[2017-01-26 08:25] VITALS: BP 145/92
--- NOTE | 2017-01-26 08:45 | NUR ---
ASSESSMENT COMPLETE, VS STABLE. NO COMPLAINTS. CALL LIGHT WITHIN REACH.
[2017-01-26 11:12] LABS: ANA REFLEX - DIRECT Negative (Negative)
[2017-01-26 13:12] LABS: IMMUNOGLOBULIN A 255 mg/dL (87-352); IMMUNOGLOBULIN G 637 mg/dL (700-1600); IMMUNOGLOBULIN M 113 mg/dL (26-217)
[2017-01-26 16:15] VITALS: BP 142/92
--- NOTE | 2017-01-26 18:21 | NUR ---
PATIENT IN BED WITH IV INTACT. NO COMPLAINTS AT THIS TIME. CALL LIGHT WITHIN REACH.
[2017-01-26 19:00] VITALS: BP 155/88
--- NOTE | 2017-01-26 19:47 | NUR ---
SPOKE WITH JORGE ALBERTO IN PHARM WHO VERIFIED THAT PT'S 01/27 0200 DOSE OF VANC SHOULD BE GIVEN
[2017-01-27] VITALS (13 sets, daily range): BP systolic 118–191; BP diastolic 74–113; Ht 170.2 cm; Wt 83.9 kg
[2017-01-27 03:10] LABS: MYCOPLASMA PNEUMO IGG 418 U/mL (0-99)
[2017-01-27 06:37] LABS: BASOPHILS 0.1 % (0-2); EOSINOPHILS 0 % (0-7); HEMATOCRIT 35.2 % (36.0-48.0); HEMOGLOBIN 11.5 g/dL (12-16); IMMATURE GRANULOCYTES 1.2 % (0-5); MCH 35.6 pg (26.0-34.0); MCHC 32.7 g/dL (31.0-37.0); MEAN PLATELET VOLUME 10.1 fL (7.4-10.4); MONOCYTES 5.8 % (2-11); NEUTROPHILS 84.9 % (40-80); RBC 3.23 10x6/uL (4.00-5.40); RDW 15.7 % (11.5-14.5); WBC 11.3 10x3/uL (4.8-10.8)
[2017-01-27 06:39] LABS: PLATELET COUNT 397 10x3/uL (130-400)
[2017-01-27 06:53] LABS: ALBUMIN 2.2 g/dL (3.4-5.0); ALKALINE PHOSPHATASE 97 U/L (46-116); ALT (SGPT) 20 U/L (10-68); CALC OSMOLALITY 278 mosm/kg (275-300); CALCIUM 8.8 mg/dL (8.5-10.1); CARBON DIOXIDE 27.3 mmol/L (21.0-32.0); CHLORIDE - SERUM 101 mmol/L (98-107); CREATININE - SERUM 0.6 mg/dL (0.6-1.3); GLUCOSE 194 mg/dL (74-106); POTASSIUM - SERUM 4.1 mmol/L (3.5-5.1); PROTEIN - SERUM 5.7 g/dL (6.4-8.2); SODIUM 137 mmol/L (136-145); UREA NITROGEN 13 mg/dL (7-18); eGFR NON AFRICAN AMERICAN > 90 mL/min (90-120)
--- NOTE | 2017-01-27 11:38 | NUR ---
PATIENT IN BED WITH IV INTACT. NO COMPLAINTS. STILL WAITING FOR ANESTHESIA TO PUT IN PRE OP ORDERS. CALL LIGHT WITHIN REACH.
--- NOTE | 2017-01-27 12:39 | NUR ---
PATIENT TO OR. VAL STATED WOULD GIVE PREOP MEDS THERE SINCE NON WERE ORDERED FOR HERE.
--- NOTE | 2017-01-27 15:00 | NUR ---
PATIENT BACK FROM OR. VS STABLE EXCEPT BP HIGH. RR NURSE SAID IT NEVER GOT THAT HIGH IN RECOVERY. PATIENT IN BED WITH IV INTACT. PORT INTACT WITH DRESSING. COMPLAINS OF PAIN AT THIS TIME. EXPLAINED TO PATIENT I WOULD GET HER TORADOL RESTARTED IF ABLE TO. VERBALIZED UNDERSTANDING. BSCDS OFF. STATED SHE DIDNT WANT TO WEAR THEM. CALL LIGHT WITHIN REACH.
--- NOTE | 2017-01-27 19:51 | NUR ---
PATIENT IN BED WITH IV INTACT. PAIN MEDS GIVEN. CALL LIGHT WITHIN REACH.
--- NOTE | 2017-01-27 22:09 | NUR ---
PRN TORADOL ADMINISTERED IVP FOR PAIN 03/15. NO FURTHER NEEDS AT THIS TIME. VISITOR AT BEDSIDE. SIDE RAILS X 2. BED IS LOW. CALL LIGHT IN REACH.
[2017-01-28] VITALS: BP 168/85
--- NOTE | 2017-01-28 00:37 | NUR ---
AWAKE,ALERT.NO COMPLAINTS AT PRESENT. PORT INTACT TO LEFT CHEST WITHOUT REDNESS OR EDEMA NOTED. IV INFUSING RO RIGHT UPPER MIDLINE WITHOUT REDNESS OR EDEMA NOTED. LUNG SOUNDS WIHT WHEEZING BILATERA.
[2017-01-28 03:47] VITALS: BP 192/86
--- NOTE | 2017-01-28 06:07 | NUR ---
NO CHANGE IN ASSESSMENT. CL AT REACH
[2017-01-28 06:27] LABS: BASOPHILS 0.2 % (0-2); EOSINOPHILS 0 % (0-7); HEMATOCRIT 36.4 % (36.0-48.0); IMMATURE GRANULOCYTES 3.1 % (0-5); LYMPHOCYTES 11.8 % (15-50); MCH 35.7 pg (26.0-34.0); MCV 108.3 fL (80.0-100.0); MEAN PLATELET VOLUME 9.8 fL (7.4-10.4); MONOCYTES 8.3 % (2-11); NEUTROPHILS 76.6 % (40-80); PLATELET COUNT 388 10x3/uL (130-400); RBC 3.36 10x6/uL (4.00-5.40); RDW 15.7 % (11.5-14.5); WBC 11.4 10x3/uL (4.8-10.8)
[2017-01-28 06:46] LABS: ALBUMIN 2.5 g/dL (3.4-5.0); ALKALINE PHOSPHATASE 104 U/L (46-116); ALT (SGPT) 24 U/L (10-68); CALC OSMOLALITY 278 mosm/kg (275-300); CALCIUM 9.2 mg/dL (8.5-10.1); CARBON DIOXIDE 25.6 mmol/L (21.0-32.0); CHLORIDE - SERUM 100 mmol/L (98-107); CREATININE - SERUM 0.7 mg/dL (0.6-1.3); GLUCOSE 190 mg/dL (74-106); PROTEIN - SERUM 5.8 g/dL (6.4-8.2); SODIUM 137 mmol/L (136-145); UREA NITROGEN 12 mg/dL (7-18); eGFR NON AFRICAN AMERICAN > 90 mL/min (90-120)
--- NOTE | 2017-01-28 07:00 | NUR ---
PT REC'D FROM ZAINA SCHAEFER. SITTING UP IN BED WATCHING TV. AAOX4. RATING CURRENT PAIN IN CHEST/BACK/AND ABD 7/10. WILL ADMINISTER PAIN MEDICATION AND REASSSESS. REGULAR HEART RATE AND RHYTHM. DRESSING TO L CHEST PORT CDI. WILL CHANGE PER PROTOCOL. LUNG SOUNDS CLEAR TO UPPER LOBES, AND DIMINISHED TO BLL. DRESSING TO R PICC CDI. WILL CHANGE PER PROTOCOL. BOWEL SOUNDS ACTIVE X4 QUADRANTS. BRUISING NOTED TO RLQ. PT STATES THATS WHERE SHE HAS BEEN GETTING HER LOVENOX INJECTIONS, BUT SHE DOESN'T WANT THEM ANYWHERE ELSE. REFUSING SCD'S. BED LOW, CALL LIGHT IN REACH, DENIES NEEDS. CPOC.
[2017-01-28 08:18] VITALS: BP 182/109
--- NOTE | 2017-01-28 08:40 | NUR ---
MORNING MEDS PASSED AT THIS TIME. PRN DILAUDID ADMINISTERED PER PT COMPLAINTS OF 01/12 CHEST/BACK/AND ABD PAIN. WILL REASSESS. BREAKFAST TRAY AT BEDSIDE. REFUSING MIRALAX. BED LOW, CALL LIGHT IN REACH, DENIES NEEDS. CPOC.
--- NOTE | 2017-01-28 12:23 | NUR ---
SITTING UP IN BED QUIETLY. NO C/O AT THIS TIME. DENIES NEEDS. LUNGS STILL HAVE CRACKLES THROUGHOUT AND PATIENT REPORTS OCCASSIONAL PRODUCTIVE COUGH WITH YELLOWISH SPUTUM. WILL CONTINUE TO MONITOR.
[2017-01-28 12:39] VITALS: BP 137/87
[2017-01-28 15:59] VITALS: BP 160/81
--- NOTE | 2017-01-28 19:30 | NUR ---
PT RESTING IN BED AND DENIES NEEDS AT THIS TIME. BED IN LOWEST POSITION AND CALL LIGHT WITHIN REACH. ENCOURAGED THE PATIENT TO CALL IF SHE HAS NEEDS.
[2017-01-28 20:00] VITALS: BP 166/91
[2017-01-29] VITALS (7 sets, daily range): BP systolic 109–193; BP diastolic 78–105
[2017-01-29 06:49] LABS: BASOPHILS 0.2 % (0-2); EOSINOPHILS 0 % (0-7); HEMATOCRIT 33.6 % (36.0-48.0); HEMOGLOBIN 11.2 g/dL (12-16); IMMATURE GRANULOCYTES 7.4 % (0-5); LYMPHOCYTES 14.2 % (15-50); MCH 35.6 pg (26.0-34.0); MCHC 33.3 g/dL (31.0-37.0); MCV 106.7 fL (80.0-100.0); MEAN PLATELET VOLUME 9.9 fL (7.4-10.4); MONOCYTES 7.5 % (2-11); NEUTROPHILS 70.7 % (40-80); PLATELET COUNT 396 10x3/uL (130-400); RBC 3.15 10x6/uL (4.00-5.40); RDW 15.8 % (11.5-14.5); WBC 11.8 10x3/uL (4.8-10.8)
--- NOTE | 2017-01-29 07:00 | NUR ---
PT REC'D FROM MICHAEL LUTZ. SITTING UP IN BED WITH BREAKFAST TRAY AT BEDSIDE. AAOX4. RATING CURRENT PAIN IN ABD/CHEST/BACK 12/13. WILL ADMINISTER PAIN MEDICATION AND REASSESS. NC ON DELIVERING 3L NC. LUNG SOUNDS CLEAR TO UPPER LOBES AND DIMINISHED BILAT TO LL. REGULAR HEART RATE AND RHYTHM. BOWEL SOUNDS ACTIVE X4 QUADRANTS. BRUISES TO R LOWER ABD FROM LOVENOX INJECTIONS. REFUSING TO HAVE INJECTIONS PLACED IN OTHER SITES. DRESSING TO L CHEST PORT CDI. DRESSING TO R PICC CDI WELL. BED LOW, CALL LIGHT IN REACH, DENIES NEEDS. CPOC.
[2017-01-29 07:18] LABS: ALBUMIN 2.2 g/dL (3.4-5.0); ALKALINE PHOSPHATASE 99 U/L (46-116); ALT (SGPT) 28 U/L (10-68); BILIRUBIN - TOTAL 0.32 mg/dL (0.2-1.3); CALC OSMOLALITY 279 mosm/kg (275-300); CALCIUM 8.5 mg/dL (8.5-10.1); CARBON DIOXIDE 24.1 mmol/L (21.0-32.0); CHLORIDE - SERUM 102 mmol/L (98-107); CREATININE - SERUM 0.8 mg/dL (0.6-1.3); GLUCOSE 197 mg/dL (74-106); POTASSIUM - SERUM 3.6 mmol/L (3.5-5.1); PROTEIN - SERUM 5.7 g/dL (6.4-8.2); SODIUM 137 mmol/L (136-145); UREA NITROGEN 15 mg/dL (7-18); eGFR NON AFRICAN AMERICAN 81 mL/min (90-120)
--- NOTE | 2017-01-29 08:35 | NUR ---
MORNING MEDS PASSED AT THIS TIME. PRN PAIN MEDICATION ADMINISTERED AT THIS TIME WELL DUE TO PT COMPLAINTS OF 7/10 CHEST AND BACK PAIN. WILL REASSESS. BED LOW, CALL LIGHT IN REACH, DENIES NEEDS. CPOC.
--- NOTE | 2017-01-29 09:40 | NUR ---
ON 2.5L VIA NC. LUNG SOUNDS DIMINISHED BUT CLEAR THROUGHOUT. AWAKE AND ALERT. DENIES NEEDS AT THIS TIME. WILL CONTINUE WITH PLAN OF CARE.
--- NOTE | 2017-01-29 11:01 | NUR ---
NUTRITION MONITORING & EVAL CHART REVIEWED. PT VISIT. TOLERATING REG DIET, 100% INTAKE BREAKFAST. WILL CONTINUE TO HONOR FOOD PREFERENCES, MONITOR PO INTAKE. RD FOLLOWING
--- NOTE | 2017-01-29 12:01 | NUR ---
PT RESTING IN BED WATCHING TV. NO COMPLAINTS. BED LOW, CALL LIGHT IN REACH, DENIES NEEDS. CPOC.
--- NOTE | 2017-01-29 17:00 | NUR ---
SCHEDULED MEDICATIONS ADMINISTERED AT THIS TIME. RESTING IN BED WATCHING TV. NO COMPLAINTS. BED LOW, CALL LIGHT IN REACH, DENIES NEEDS. CPOC.
--- NOTE | 2017-01-29 19:30 | NUR ---
PATIENT RESTING IN BED AND DENIES NEEDS AT THIS TIME. BED IN LOWEST POSITION AND CALL LIGHT WITHIN REACH. ENCOUARGED THE PATIENT TO CALL IF SHE HAS NEEDS.
--- NOTE | 2017-01-29 19:51 | CN ---
PATIENT NAME:SUMA ODELL MEDICAL RECORD: [id number] : 66 LOCATION:D.MS [id number] ADMIT DATE: 01/21/17 ACCOUNT: [id number] CONSULTING PHYSICIAN: KALPANA SEGOVIA MD REFERRING PHYSICIAN: WAN SOTO DO DATE OF CONSULTATION: 01/28/2017 Rheumatology Consultation HISTORY OF PRESENT ILLNESS: Suma Odell is a 46-year-old woman known to me, whom I have been asked to reevaluate for rheumatoid arthritis. The patient is currently admitted for pneumonitis and she does have recurrent episodes of pancreatitis. I first saw the patient on 06/10/[address] Montes for rheumatoid arthritis, which started approximately 2005 and had persistent involvement of the hands, elbows, shoulders and knees. She had a rheumatoid factor 887 high titer CCP, JAVIER 1-80 speckled. She reports her previous treatment had been primarily prednisone and for other reasons she run out of medications and her walk-in clinic can get steroids. When I saw her, we noted she has a history of recurrent pancreatitis for a number of years. She has history of heavy alcohol intake, which she complained, reported which she abstained since fall. However, when I saw her on July 2016, she had a heavy odor alcohol breath, and admitted drinking a pint of alcohol even before. She reports she has had continued episodes of pancreatitis despite having cholecystectomy in April 2016. The patient had been placed on methotrexate 17.5 mg every week, approximately May 2016 by primary care physician. She is on prednisone. When I saw her on 06/10/2016, I advised she just continue methotrexate, pending further evaluation. Lab tests at that time showed negative hepatitis C serologies, hepatitis B core IgM was positive, but hepatitis B PCR DNA was negative. SPE normal, folate low at 1.84 (alcohol intake), vitamin B12 of 343, GGT 124. CCP greater than 250, elevated RBC indices, hemoglobin 13.6, albumin 4.4. Normal liver functions. The patient returned for followup on 07/23/2016 with a strong odor of alcohol breath and she admitted drinking a pint of alcohol even before. Because of her history of recurrent heavy alcohol intake, advice she was definitely not a candidate for methotrexate or leflunomide and because she is noncompliant, she is not be a candidate for drugs she require, close monitoring including TNF inhibitors. On 07/23/2016 after discussing the benefits, risks treatment alternatives, she was started on hydroxychloroquine 200 b.i.d., she was given prescription 60 tablets, no refills. She failed to return office appointment, 08/22/2016, which is 5 months ago. The patient reports in the interim, she continued to have joint discomfort, stiffness and swelling. She currently has been taking prednisone 5 mg a day, but it is not listed on her home medications. Reports she has had several admissions for pneumonia and pancreatitis. CONSULT REPORT [id number] SUMA ODELL Per history and physical, home medicines are as follows: Clonidine 0.1 mg every 6 hours p.r.n., hydrocodone 10/325 one every 4 hours p.r.n., pantoprazole 40 mg b.i.d., lisinopril 20 mg a day, gabapentin 300 mg t.i.d. for peripheral neuropathy. CURRENT MEDICATIONS: Lisinopril 20 mg b.i.d., pantoprazole 40 mg b.i.d., metoprolol 100 mg b.i.d., Dilaudid GUN STOCK CHECKER, vancomycin 750 mg every 8 hours, Toradol 30 mg every 6 hours p.r.n., promethazine 25 mg p.r.n., Solu-Medrol 40 mg every 8 hours, hydralazine 10 mg every 6 hours p.r.n., Lovenox 40 mg subq daily, MiraLax 1 packet b.i.d., Maxipime 2 grams IV every 8 hours, doxycycline 100 mg IV every 12 hours, Singulair 10 mg daily, guaifenesin b.i.d., Tessalon 200 mg t.i.d., Pulmicort b.i.d., Brovana b.i.d., gabapentin 300 mg t.i.d., Catapres 0.1 mg every 6 hours p.r.n., Creon 2 capsules t.i.d., Nicoderm patch. CURRENT LABORATORY DATA: Rheumatoid factor 845 IU, CCP greater than 250, JAVIER negative. IgG 637 (low), IgE 172 (elevated). Hemoglobin 11.4, hematocrit 12, platelets 383,000. BUN 0.7. AST 18, ALT 24, total bilirubin 0.3. Albumin 2.5. D-dimer 814. Urinalysis normal. CTA negative for pulmonary emboli. Chest x-ray with left sided [id number], prominent interstitial pattern. PAST MEDICAL HISTORY: She reports she had hiatal hernia by EGD [address] Padgett, where she had a positive TB skin test at age 14. Chest x-ray is uncertain. She actually had treatment for the TB, positive PPD. ALLERGIES: SHE IS ALLERGIC TO LATEX. She had recurrent pancreatitis for years and continued despite having cholecystectomy, fall of 2015. Stated she drank heavily in the past and had a heavy odor of alcohol breath, last seen in the office, July 2016. She has history of anemia, previous episodes of pneumonia, colitis, hiatal hernia by EGD, , tonsillectomy, right ankle fracture ORIF, hysterectomy for benign reasons, benign liver tumor removed 2005 in [facility]. SOCIAL HISTORY: She smoked 2 packs per day for 23 years. Gradually decreased, still smoking 3 cigarettes to 4 cigarettes per day, last seen in July 2016. She drank 1 pint of alcohol per day [id number] and resumed some alcohol at least in July 2016. FAMILY HISTORY: Father of epilepsy at age 49, alcoholism. Grandmother had "lupus and rheumatoid arthritis." Reports sibling was murdered. REVIEW OF SYSTEMS: Denies diplopia, tinnitus, vertigo, Sicca symptoms, aphthae, pleural effusion, pericarditis, burning or hematuria, TIA stroke. PHYSICAL EXAMINATION: VITAL SIGNS: Blood pressure 160/81, pulse 74 and regular, respirations 20, temperature 97.9. GENERAL: A well-developed, obese woman in no acute distress. HEENT: Head: Normal female hair pattern. Eyes, conjunctivae are clear. Mouth is moist without lesions. NECK: Without masses. LUNGS: Revealed few crackles in the bases. CONSULT REPORT [id number] SUMA ODELL CARDIOVASCULAR: S1, S2 are normal without gallop, murmur or rub. Carotids are 2+ without delay or bruit. Radial pulse 2+, pedal pulses 2+. ABDOMEN: Soft, nontender without organomegaly or masses. MUSCULOSKELETAL: There is slight puffiness around the wrists and fingers, mild tenderness. There is no definite inflammation of elbows and shoulders have full range of motion. Knees and ankles, there is mild soreness with range of motion, slight puffiness. NEUROLOGIC: Reflexes are symmetrical. SKIN: Without elbow nodules, malar rash, discoid lupus, petechiae or infarcts. PSYCHIATRIC: Normal affect. IMPRESSION: 1. Rheumatoid arthritis. Seropositive and CCP positive. 2. Mild erosive changes on hand x-rays, June 2016 compatible with rheumatoid arthritis. 3. Prior history of heavy alcohol intake, [id number]. Recurrent heavy alcohol intake, July 2016. 4. Recurrent pancreatitis in spite of cholecystectomy. 5. Noncompliance with multiple outpatient office appointments and follow up for treatment. 6. Noncompliance with treatment with DMARD (hydroxychloroquine) from July 2016 to current date. 7. Pneumonitis. RECOMMENDATIONS: 1. If she improves with Solu-Medrol, may gradually taper down to low daily dose of prednisone, but I do not if it is factor in pancreatitis. 2. The patient is really not a candidate for treatment for rheumatoid arthritis because of noncompliance. She is certainly not a candidate for treatment with methotrexate, leflunomide or any other drugs. She carries significant liver toxicity. She is also not a candidate for biological drugs due to her recurrent infections. She might possibly respond to hydroxychloroquine, but she have to be compliant with followup and some precaution on exams. TRANSINT:[id number] Voice Confirmation ID: [id number] DOCUMENT ID: [id number] KALPANA SEGOVIA MD at 1951 CC: [id number] DICTATION DATE: 01/28/17 1623 SALES REPRESENTATIVE GIRLS' APPAREL: 01/29/17 0258 [facility] IN [id number] [place] [address]
[2017-01-30 03:51] VITALS: BP 143/82
--- NOTE | 2017-01-30 06:08 | NUR ---
PATIENT'S PICC AND PORT WOULD NOT DRAW THIS MORNING. PATIENT REFUSED TO HAVE BLOOD DRAWN BY LAB
--- NOTE | 2017-01-30 07:05 | NUR ---
PT REC'D FROM MICHAEL LUTZ. RESTING IN BED WATCHING TV. AAOX4. ATTEMPTED TO DRAW MORNING LABS FROM PORT AND PICC AND THEY WERE BOTH UNSUCCESSFUL. WILL CALL VASCULAR ACCESS NURSE TO ASSESS. 3L O2 VIA NC ON. RATING CURRENT PAIN IN ABD 5/10. WILL ADMINISTER PAIN MEDICATION, IF TIME, AND REASSESS. BED LOW, CALL LIGHT IN REACH, DENIES NEEDS. CPOC.
--- NOTE | 2017-01-30 08:16 | NUR ---
MARGY, GLASS BELT SANDER ACCESS NURSE, CALLED REGARDING PICC AND PORT NOT DRAWING AND PT REFUSING LAB DRAW BY PHLEBOTIMIST.
[2017-01-30 08:25] VITALS: BP 167/71
[2017-01-30 09:05] LABS: BASOPHILS 0.1 % (0-2); EOSINOPHILS 0 % (0-7); HEMATOCRIT 34.3 % (36.0-48.0); HEMOGLOBIN 11.5 g/dL (12-16); IMMATURE GRANULOCYTES 5.5 % (0-5); LYMPHOCYTES 10.8 % (15-50); MCH 35.6 pg (26.0-34.0); MCHC 33.5 g/dL (31.0-37.0); MCV 106.2 fL (80.0-100.0); MEAN PLATELET VOLUME 9.8 fL (7.4-10.4); MONOCYTES 8.1 % (2-11); NEUTROPHILS 75.5 % (40-80); PLATELET COUNT 379 10x3/uL (130-400); RBC 3.23 10x6/uL (4.00-5.40); RDW 15.7 % (11.5-14.5)
[2017-01-30 09:29] LABS: ALBUMIN 2.5 g/dL (3.4-5.0); ALKALINE PHOSPHATASE 98 U/L (46-116); ALT (SGPT) 24 U/L (10-68); BILIRUBIN - TOTAL 0.31 mg/dL (0.2-1.3); CALC OSMOLALITY 280 mosm/kg (275-300); CALCIUM 8.9 mg/dL (8.5-10.1); CARBON DIOXIDE 24.5 mmol/L (21.0-32.0); CHLORIDE - SERUM 102 mmol/L (98-107); CREATININE - SERUM 0.7 mg/dL (0.6-1.3); GLUCOSE 201 mg/dL (74-106); POTASSIUM - SERUM 3.7 mmol/L (3.5-5.1); PROTEIN - SERUM 5.9 g/dL (6.4-8.2); SODIUM 137 mmol/L (136-145); UREA NITROGEN 15 mg/dL (7-18); VANCOMYCIN - TROUGH 15.2 ug/mL (10.0-20.0); eGFR NON AFRICAN AMERICAN > 90 mL/min (90-120)
--- NOTE | 2017-01-30 10:24 | NUR ---
0829-Asked to check Iport, unable to obtain blood return. Current haile needle removed and reaccessed. Using sterile technique, chloraprep to site, 20 gauge, 1 1/2 inch haile to right chest wall with good blood return. Site dressed with chloraprep disc and tegaderm dressing. Inez Henriquez RN
[2017-01-30] MEDS ORDERED: HYDROCODONE-APA1 TAB PO (11:31)
[2017-01-30] MEDS ORDERED: BROVANA15 MCG/2 M INH ×2 (11:31→11:54)
[2017-01-30] MEDS ORDERED: METOPROLOL TART50 MG PO ×2 (11:32→11:54)
[2017-01-30] MEDS ORDERED: NICODERM C1 PATCH .2 TRANSDERM ×2 (11:32→11:54)
[2017-01-30] MEDS ORDERED: PULMICORT0.25 MG/1 UPD ×2 (11:33→11:54)
[2017-01-30] MEDS ORDERED: BENZONATATE200 MG PO ×2 (11:33→11:54)
[2017-01-30] MEDS ORDERED: LISINOPRIL10 MG PO ×2 (11:33→11:54)
[2017-01-30] MEDS ORDERED: SINGULAIR10 MG PO ×2 (11:33→11:54)
[2017-01-30] MEDS ORDERED: MUCINEX DM ER1 EAC1 PO ×2 (11:33→11:54)
[2017-01-30] MEDS ORDERED: PEPCID20 MG PO ×2 (11:34→11:54)
[2017-01-30] MEDS ORDERED: ZOFRAN4 MG PO ×2 (11:34→11:54)
[2017-01-30] MEDS ORDERED: FLUTICASONE PRO16 GM NASAL ×2 (11:34→11:54)
[2017-01-30] MEDS ORDERED: IPRAT-ALBUT 0.5-3 ML UPD ×2 (11:35→11:54)
[2017-01-30] MEDS ORDERED: LEVAQUIN750 MG PO ×2 (11:36→11:54)
[2017-01-30] MEDS ORDERED: PREDNISONE10 MG PO ×2 (11:36→11:50)
[2017-01-30] MEDS ORDERED: PROTONIX40 MG PO (11:54)
[2017-01-30 12:21] VITALS: BP 178/103
--- NOTE | 2017-01-30 12:58 | NUR ---
PT RESTING IN BED WITH VISITORS AT BEDSIDE. NO COMPLAINTS. BED LOW, CALL LIGHT IN REACH, DENIES NEEDS. CPOC.
--- NOTE | 2017-01-30 13:02 | NUR ---
CM REASSESSMENT NOTE: PATIENT IS DISCHARGING HOME TODAY WITH [facility] (ELIS FORM SIGNED). [facility] WILL DELIVER PATIENTS OXYGEN BEFORE D/C TODAY. PATIENT WILL ALSO HAVE A NEBULIZER. PATIENTS SON WILL DRIVE HER HOME AT DISCHARGE PER PATIENT. JANEY DELGADO
--- NOTE | 2017-01-30 14:51 | OP ---
PATIENT NAME: NINA ODELL MEDICAL RECORD: [id number] :66 LOCATION:D.MS [id number] ADMISSION DATE:01/21/17 SURGEON: STEFANO KERR MD DATE OF OPERATION: 01/27/2017 PREOPERATIVE DIAGNOSES: 1. Need for long-term IV access. 2. Chronic pancreatitis. 3. Peripheral neuropathy. 4. Hypertension. 5. Gastroesophageal reflux disease. 6. Lobar pneumonia. POSTOPERATIVE DIAGNOSES: 1. Need for long-term IV access. 2. Chronic pancreatitis. 3. Peripheral neuropathy. 4. Hypertension. 5. Gastroesophageal reflux disease. 6. Lobar pneumonia. PROCEDURES: 1. Left subclavian vein PowerPort placement. 2. Fluoroscopic interpretation. SURGEON: Stefano Kerr MD. OPERATIVE PROCEDURE: The patient's left chest was prepped and draped in sterile fashion. A needle was used to cannulate the left subclavian vein. The guidewire was advanced with ease. Fluoro was used to note that the wire was in good position in the venous system. A cutdown was made on the left chest and a subcutaneous pouch was made over the pectoral fascia. The catheter was tunneled between this and the wire exit site. The port was then sutured to the pectoral fascia using interrupted 2-0 Prolenes times 2. The catheter was cut with a beveled tip at 24 cm. The dilator trocar device was placed over the wire and the wire and dilator were removed. The catheter tip was advanced through the trocar and the trocar was removed. Fluoro was used to note that the catheter was resting in good position in the superior vena cava. The catheter aspirated nonpulsatile dark blood and flushed easily with heparinized saline. The subcutaneous tissues were reapproximated with interrupted 3-0 Vicryl and the skin was closed with running subcutaneous 5-0 Monocryl. We then accessed the port and flushed it one last time before placing a dressing. COMPLICATIONS: None. CONDITION: Stable. ANESTHESIA: General endotracheal. BLOOD LOSS: Minimal. TRANSINT:[id number] Voice Confirmation ID: [id number] DOCUMENT ID: [id number] OPERATIVE REPORT [id number] NINA ODELL STEFANO KERR MD at 1455 CC: [id number] DICTATION DATE: 01/27/17 1417 ESTHETICIAN: 01/27/172058 ADM IN [facility] [address] [id number]
[2017-01-30 16:08] VITALS: BP 175/99
--- NOTE | 2017-01-30 17:00 | NUR ---
PATIENT SITTING UP IN BED EATING AT THIS TIME. PICC INTACT. CALL LIGHT WITHIN REACH.
--- NOTE | 2017-01-30 17:09 | NUR ---
PT RESTING IN BED WATCHING TV. IV ABX HUNG PER MAR. AWAITING RIDE SO SHE CAN BE DISCHARGED.
--- NOTE | 2017-01-30 21:52 | NUR ---
REMOVED NEEDLE FROM PT'S PORT AND PUT HER ON HOME O2. PATIENT SIGNED ALL D/C PAPERS AND WAS TAKEN OUT VIA WHEELCHAIR BY MERCEDES OMER.
== END 2017-01-30 22:24 | disposition home health service (06) | DRG 177 ==
LOC: D.ER 17:32 → D.MS 01-21 02:37
PROVIDERS: Family Medicine; Internal Medicine Pulmonary Disease; Nurse Practitioner Family; Surgery; ADMIT Family Medicine
PROC: 02HV33Z Insertion of Infusion Device into Superior Vena Cava, Percutaneous Approach (ICD-10-PCS; 2017-01-27)
PROC: B5181ZA Fluoroscopy of Superior Vena Cava using Low Osmolar Contrast, Guidance (ICD-10-PCS; 2017-01-27)
PROC: 0JH63XZ Insertion of Tunneled Vascular Access Device into Chest Subcutaneous Tissue and Fascia, Percutaneous Approach (ICD-10-PCS; principal; 2017-01-27 11:45)
DX: J69.0 Pneumonitis due to inhalation of food and vomit (principal); K85.90 Acute pancreatitis without necrosis or infection, unspecified; J44.0 Chronic obstructive pulmonary disease with (acute) lower respiratory infection; F17.203 Nicotine dependence unspecified, with withdrawal; K86.1 Other chronic pancreatitis; J44.1 Chronic obstructive pulmonary disease with (acute) exacerbation; J15.6 Pneumonia due to other Gram-negative bacteria; J13 Pneumonia due to Streptococcus pneumoniae; F41.8 Other specified anxiety disorders; E87.6 Hypokalemia; M06.9 Rheumatoid arthritis, unspecified; I10 Essential (primary) hypertension; G62.9 Polyneuropathy, unspecified; D53.9 Nutritional anemia, unspecified; K59.09 Other constipation; R07.89 Other chest pain; K76.0 Fatty (change of) liver, not elsewhere classified; K21.9 Gastro-esophageal reflux disease without esophagitis; K57.90 Diverticulosis of intestine, part unspecified, without perforation or abscess without bleeding; Z91.19 Patient's noncompliance with other medical treatment and regimen

== ENCOUNTER 2017-02-23 17:28 | Inpatient (IN) | payer MEDICARE ==
[~2017-02-23] VITALS: Ht 170.2 cm; Wt 83.9 kg
--- NOTE | ~2017-02-23 | EC ---
PATIENT:NINA ODELL DATE OF SERVICE: 02/23/17 SEX: F MEDICAL RECORD: [id number] DATE OF : [birth year] LOCATION:D.MS Painting AGE OF PATIENT: 46 ADMISSION DATE: 02/23/17 REFERRING PHYSICIAN: INTERPRETING PHYSICIAN: BASIA MOREIRA MD ECHOCARDIOGRAM REPORT ECHO CHARGES 4 ECHO COMPLETE CLINICAL DIAGNOSIS: SOB HX OF PALPITATIONS ECHOCARDIOGRAPHIC MEASUREMENTS (adult normal given) AC root (d.<3.7cm) 3.1 cm LV Septum d (<1.2 cm> 1.0 cm Valve Excursion 1.1 cm LV Septum (systole) 1.1 cm Left Atria (s.<4.0cm> 2.5 cm LVPW d(<1.2cm) 1.1 cm RV (d.<2.3cm) 3.5 cm LVPW (sytole) 1.2 cm LV diastole(<5.6CM) 4.3 cm MV E-F(>70mm/sec) cm LV systole 3.0 cm LVOT Diameter 1.7 cm MV exc.(>10mm) cm Est.ejection fraction (50-75%) % Pericardial Effusion N DOPPLER: LVIT cm/sec A 86.0 cm/sec E 69.0 cm/sec LA cm/sec RVSP 21 mmHg LVOT 127 cm/sec AOP1/2T m/s Asc. Ao 143 cm/sec RVOT 100 cm/sec RA cm/sec PA 107 cm/sec AV Gradient Peak 8.19 mmHg AV Mean 3.86 mmHg AV Area 2.2 cm MV Gradient Peak 3.11 mmHg MV Mean 1.73 mmHg MV Area cm COMMENTS: Television Technician: Warren THAYER Gaming Investigator: Luz Elizabeth TAPE# PACS DATE OF SERVICE: 03/06/2017 Echocardiogram FINDINGS: 1. Left ventricular chamber size is within normal limits. Left ventricular systolic function is normal. Overall ejection fraction estimated at 65%. 2. Left atrium, right atrium, and right ventricular chamber size are within normal limits. 3. Valvular structures have normal structure and motion. ECHOCARDIOGRAM REPORT [id number] NINA ODELL 4. Doppler interrogation reveals trace to mild mitral regurgitation, no other valvular insufficiency or stenosis and pulmonary systolic pressure is normal estimated at 21 mmHg. 5. No evidence of pericardial effusion or left ventricular thrombus. TRANSINT:[id number] Voice Confirmation ID: [id number] DOCUMENT ID: [id number] BASIA MOREIRA MD CC: [id number] DICTATION DATE: 03/08/17 1117 SYSTEMS TEST ANALYST: 03/08/17 1311 ADM IN [facility] [address] [id number]
--- NOTE | ~2017-02-23 | CN ---
PATIENT NAME:NINA ODELL MEDICAL RECORD: [id number] : 66 LOCATION:D.MS Painting6 ADMIT DATE: 02/23/17 ACCOUNT: [id number] CONSULTING PHYSICIAN: NAHEED PEDERSON MD REFERRING PHYSICIAN: GARRETT TRIPATHI MD DATE OF CONSULTATION: 02/25/2017 CONSULT REQUESTING PHYSICIAN: Garrett Tripathi MD REASON FOR CONSULTATION: Wheezing, shortness of breath. HISTORY OF PRESENT ILLNESS: Ms. Odell is a 46-year-old female who was admitted with abdominal pain, nausea and vomiting. She was also hearing herself wheezing. She has a D-dimer was checked, which was elevated. The patient denies any chest pain. There is no pain and swelling of the lower extremities, but she does complaining of shortness of breath and wheezing. REVIEW OF SYSTEMS: Mainly in the history of present illness. PAST MEDICAL HISTORY: 1. Chronic obstructive pulmonary disease. 2. Childhood asthma. 3. Hypertension. 4. Rheumatoid arthritis, seeing Dr. Macedo. 5. History of latent TB positive PPD. The patient was not treated. 6. Gastroesophageal reflux disease. 7. History of atypical chest pain. 8. Diverticular disease. 9. Anxiety and depression. 10. Chronic pancreatitis. 11. Allergic rhinitis. 12. Fatty liver. PAST SURGICAL HISTORY: 1. Hysterectomy. 2. Tumor of the liver. 3. Metal placement in the right ankle. 4. T&A. ALLERGIES: SHE IS ALLERGIC TO LATEX. PRESENT MEDICATIONS: On [employer] was reviewed. PERSONAL AND SOCIAL HISTORY: The patient is an ex-smoker. She is a nondrinker. FAMILY HISTORY: Significant for neurological disorder. PHYSICAL EXAMINATION: GENERAL: Now, the patient is lying comfortably in bed. She is not in acute distress. VITAL SIGNS: The blood pressure is 135/73, pulse is 120, respiration is 18, temperature 99.3, SPO2 is 97%. HEENT: Conjunctivae pink, sclerae nonicteric. NECK: Supple, no JVD. CHEST: Excursion is minimal on both sides, prolonged expiration with wheezing. CONSULT REPORT [id number] NINA ODELL HEART: Rhythm regular, normal sound, no murmur. ABDOMEN: Soft. Bowel sounds present. No hepatosplenomegaly. RECTAL: Deferred. EXTREMITIES: No cyanosis, no clubbing, no pedal edema. SKIN: Warm, normal turgor. CENTRAL NERVOUS SYSTEM: The patient is awake and alert. There is no obvious cranial nerve abnormality. The gait was not tested. IMAGING: There are no chest radiograph available. OTHER LABORATORY DATA: CBC: WBC is 7.7, hemoglobin 11.5, hematocrit 36.2. The platelet count is 299. Chemistry: Sodium 140, potassium is 3, BUN is 3, creatinine is 0.8. The liver enzyme is within normal range. The lipase is 67. Amylase is 45. The D-dimer is 8.34. IMPRESSION: 1. Chronic obstructive pulmonary disease exacerbation. 2. Wheezing. 3. Positive D-dimer, rule out deep venous thrombosis, rule out pulmonary embolism. 4. Abdominal pain with associated nausea, vomiting and possible infectious process. 5. Rheumatoid arthritis. 6. Chronic pancreatitis. 7. Ex-smoker. RECOMMENDATION: 1. I will check the CTA of the chest and check the Doppler of the lower extremity. 2. Albuterol ipratropium nebulizer, Brovana, budesonide nebulizer, methylprednisolone IV. Continue the present antibiotic Levaquin and Flagyl. Dr. Tripathi, thank you for involving me in the care of Ms. Odell. TRANSINT:[id number] Voice Confirmation ID: [id number] DOCUMENT ID: [id number] NAHEED PEDERSON MD CC: EUGENE IRVIN MD [id number] DICTATION DATE: 02/25/171535 PRIVACY OFFICER: 02/25/17 2100 ADM IN [facility] [address] [place] [address]
[~2017-02-23 17:28] MED LIST changes: +BENZONATATE200 MG PO; +BROVANA15 MCG/2 M INH; +FLUTICASONE PRO16 GM NASAL; +IPRAT-ALBUT 0.5-3 ML UPD; +METOPROLOL TART50 MG PO; +MUCINEX DM ER1 EAC1 PO; +PULMICORT0.25 MG/1 UPD; +SINGULAIR10 MG PO
[2017-02-23 18:53] LABS: AMYLASE - SERUM 81 U/L (25-115); LIPASE 74 U/L (73-393)
[2017-02-23 19:24] LABS: BASOPHILS 0.2 % (0-2); EOSINOPHILS 0.5 % (0-7); HEMATOCRIT 43.6 % (36.0-48.0); HEMOGLOBIN 14.5 g/dL (12-16); IMMATURE GRANULOCYTES 1.1 % (0-5); LYMPHOCYTES 20.2 % (15-50); MCH 35.6 pg (26.0-34.0); MCHC 33.3 g/dL (31.0-37.0); MCV 107.1 fL (80.0-100.0); MEAN PLATELET VOLUME 9.8 fL (7.4-10.4); MONOCYTES 8.5 % (2-11); NEUTROPHILS 69.5 % (40-80); PLATELET COUNT 436 10x3/uL (130-400); RBC 4.07 10x6/uL (4.00-5.40); RDW 16.8 % (11.5-14.5); WBC 12.8 10x3/uL (4.8-10.8)
[2017-02-23 19:58] LABS: ALBUMIN 3.1 g/dL (3.4-5.0); ANION GAP 22.6 mmol/L (8-16); BILIRUBIN - TOTAL 0.75 mg/dL (0.2-1.3); CALCIUM 8.6 mg/dL (8.5-10.1); CARBON DIOXIDE 23.7 mmol/L (21.0-32.0); CREATININE - SERUM 0.9 mg/dL (0.6-1.3); POTASSIUM - SERUM 3.3 mmol/L (3.5-5.1); PROTEIN - SERUM 7.1 g/dL (6.4-8.2)
[2017-02-23 22:51] LABS: APPEARANCE HAZY (CLEAR); BILIRUBIN NEGATIVE (NEGATIVE); COLOR DK YELLOW (YELLOW); GLUCOSE NEGATIVE (NEGATIVE); KETONE NEGATIVE (NEGATIVE); LEUKOCYTE ESTERASE NEGATIVE (NEGATIVE); NITRITE NEGATIVE (NEGATIVE); PROTEIN TRACE mg/dL (NEGATIVE); SPECIFIC GRAVITY 1.015 (1.005-1.020); UROBILINOGEN NORMAL (NORMAL)
[2017-02-24 00:26] VITALS: BP 125/92; BMI 29.0
--- NOTE | 2017-02-24 03:25 | NUR ---
2345) REC'D. TO [id number].2236 ALERT ORIENTED X3.VIA W/C. COMPLAINS OF ABDOMINAL PAIN.NAUSEA EARLIER IN ER NO EMESIS. STATES DRY HEAVES.ABDOMEN DISTENDED WITH TENDERNES TO LEFT UPPER ABD.REGIONAL BUSINESS DEVELOPMENT MANAGER MORPHINE AT 1MG Q 10MIN.WITH 10MG Q 4HR.LOCKOUT INTERVAL.FOR SELF PAIN CONTROL. WILL CONTINUE TO MONITOR FOR ANY FURTHER CGES. AND FOLLOW CURRENT PLAN OF CARE.
[2017-02-24 04:00] VITALS: BP 141/83
--- NOTE | 2017-02-24 07:44 | NUR ---
AM ROUNDS - PT IN BED AND AWAKE. NO YELLOW BAND ON. NON SKID SOCKS ON. O2 AT 2L VIA NC. LEFT CHEST INFUSAPORT WITH D5LR AT 100CC/HR AND MORPHINE ENGRAVER BLOCK. BED AT LOWEST POSITION. CALL PATE IN USE/REACH. SIDE RAILS UP X2. NO NEEDA T THSI TIME. WILL CONTINUE TO MONITOR
--- NOTE | 2017-02-24 08:08 | NUR ---
Patient Name: NINA ODELL Admission Status: ER Accout number: [id number] Admission Date: 02-23-2017 : 1970 Admission Diagnosis: Attending: PHYLLIS Current LOS: 1 Anticipated DC Date: 02-27-2017 Planned Disposition: Home with Home Health Primary Insurance: MEDICARE A & B Discharge Planning Comments: CM MET WITH PATIENT REGARDING D/C NEEDS AND PLANS. PATIENT LIVES ALONE AND A FRIEND OR FAMILY MEMBER WILL DRIVE HER HOME. PATIENT STATED THERE ARE NO STEPS OR STAIRS AT HER HOME. PATIENTS CONTACT IS STEFANO HOWELL (FRIEND). PATIENT STATED SHE IS INDEPENDENT WITH HER CARE AND HAS A WALKER, SHOWER CHAIR, OXYGEN, NEBULIZER, AND PORTABLE O2 AT HOME. [facility] IS THE SUPPLIER FOR HER OXYGEN. PATIENTS PCP IS DR. IRVIN AND PHARMACY IS [facility] [address] PATIENT IS CURRENT WITH [facility]. CM WILL CONTINUE TO FOLLOW PATIENT WITH D/C NEEDS AND PLANS. PCP DR[facility] [phone] STEFANO HOWELL (FRIEND) [phone] [facility] (CURRENT) [phone] [facility]- [phone] Air Filler: Bev Allan Is the patient Alert and Oriented? Yes 0 * How many steps to enter\exit or inside your home? 0 0 * PCP DR. IRVIN 0 * Pharmacy [facility] [address] 0 * Preadmission Environment Home Alone 0 * ADLs Independent 0 * Equipment Nebulizer Oxygen Shower Chair Walker 0 * Other Equipment PORTABLE O2 0 * List name and contact numbers for known caregivers / representatives who currently or will assist patient after discharge: STEFANO HOWELL ([phone]) 0 * Community resources currently utilized Home Health 0 * Please name any agencies selected above. [facility] 0 * Additional services required to return to the preadmission environment? Yes 0 * Can the patient safely return to the preadmission environment? Yes 0 * Has this patient been hospitalized within the prior 30 days at any hospital? No 0 Grand Total: 0
[2017-02-24 09:03] VITALS: BP 155/88
[2017-02-24 12:03] LABS: BASOPHILS 0.3 % (0-2); EOSINOPHILS 1.9 % (0-7); HEMATOCRIT 38.4 % (36.0-48.0); HEMOGLOBIN 12.6 g/dL (12-16); IMMATURE GRANULOCYTES 0.4 % (0-5); LYMPHOCYTES 35.1 % (15-50); MCH 35.3 pg (26.0-34.0); MCHC 32.8 g/dL (31.0-37.0); MCV 107.6 fL (80.0-100.0); MEAN PLATELET VOLUME 9.2 fL (7.4-10.4); NEUTROPHILS 51.3 % (40-80); RBC 3.57 10x6/uL (4.00-5.40); RDW 16.9 % (11.5-14.5)
[2017-02-24 12:05] VITALS: BP 132/80
[2017-02-24 12:06] LABS: PLATELET COUNT 307 10x3/uL (130-400); WBC 7.5 10x3/uL (4.8-10.8)
[2017-02-24 12:25] LABS: ALBUMIN 2.8 g/dL (3.4-5.0); ALKALINE PHOSPHATASE 106 U/L (46-116); ALT (SGPT) 16 U/L (10-68); BILIRUBIN - TOTAL 0.81 mg/dL (0.2-1.3); CALC OSMOLALITY 276 mosm/kg (275-300); CALCIUM 8.4 mg/dL (8.5-10.1); CHLORIDE - SERUM 100 mmol/L (98-107); CREATININE - SERUM 0.7 mg/dL (0.6-1.3); GLUCOSE 135 mg/dL (74-106); LIPASE 55 U/L (73-393); POTASSIUM - SERUM 3.3 mmol/L (3.5-5.1); SODIUM 139 mmol/L (136-145); UREA NITROGEN 4 mg/dL (7-18); eGFR NON AFRICAN AMERICAN > 90 mL/min (90-120)
[2017-02-24 12:26] LABS: AMYLASE - SERUM 54 U/L (25-115); CARBON DIOXIDE 32.5 mmol/L (21.0-32.0)
[2017-02-24 15:17] VITALS: Ht 170.2 cm; Wt 83.9 kg
[2017-02-24 17:44] VITALS: BP 136/72
[2017-02-24 23:59] VITALS: BP 149/91
--- NOTE | 2017-02-25 02:00 | NUR ---
PT IN BED WITH NO DISTRESS. RESPIRATIONS EVEN AND UNLABORED. SIDE RAILS X 2. BED IS LOW. CALL LIGHT IN REACH.
--- NOTE | 2017-02-25 02:04 | NUR ---
REC'D AT [facility] OF SHIFT IN BED AWAKE ORIENTED X3.STATES HAS BEEN NAUSEATED ALL DAY.ZOFRAN DRIP HUNG ORDERED.PAYABLE REPRESENTATIVE MORPHINE IN PLACE FOR SELF PAIN MANAGEMENT.WILL CONTINUE TO MONITOR FOR ANY CHGES. AND FOLLOW CURRENT PLAN OF CARE
[2017-02-25 04:00] VITALS: BP 110/66
[2017-02-25 05:25] LABS: BASOPHILS 0.1 % (0-2); EOSINOPHILS 1.8 % (0-7); HEMATOCRIT 36.2 % (36.0-48.0); HEMOGLOBIN 11.5 g/dL (12-16); IMMATURE GRANULOCYTES 0.4 % (0-5); LYMPHOCYTES 27.2 % (15-50); MCHC 31.8 g/dL (31.0-37.0); MEAN PLATELET VOLUME 9.6 fL (7.4-10.4); MONOCYTES 9.5 % (2-11); PLATELET COUNT 299 10x3/uL (130-400); RBC 3.29 10x6/uL (4.00-5.40); RDW 16.8 % (11.5-14.5); WBC 7.7 10x3/uL (4.8-10.8)
[2017-02-25 06:34] LABS: ALBUMIN 2.5 g/dL (3.4-5.0); ALKALINE PHOSPHATASE 94 U/L (46-116); ALT (SGPT) 19 U/L (10-68); AMYLASE - SERUM 45 U/L (25-115); BILIRUBIN - TOTAL 0.38 mg/dL (0.2-1.3); CALC OSMOLALITY 276 mosm/kg (275-300); CALCIUM 7.9 mg/dL (8.5-10.1); CARBON DIOXIDE 26.8 mmol/L (21.0-32.0); CHLORIDE - SERUM 102 mmol/L (98-107); CHOL - HDL RATIO 1.3 ratio (2.3-4.1); CHOLESTEROL, TOTAL 124 mg/dL (0-200); CREATININE - SERUM 0.8 mg/dL (0.6-1.3); FERRITIN 58 ng/mL (3-244); GLUCOSE 122 mg/dL (74-106); HDL CHOLESTEROL 95 mg/dL (32-96); LDL CHOLESTEROL 17 mg/dL (0-100); LDL-HDL RATIO 0.2 ratio (1.5-3.5); LIPASE 67 U/L (73-393); PRE-ALBUMIN 15.5 mg/dL (18.0-35.7); PROTEIN - SERUM 5.6 g/dL (6.4-8.2); SODIUM 140 mmol/L (136-145); TRIGLYCERIDE 61 mg/dL (30-200); UREA NITROGEN 3 mg/dL (7-18); eGFR NON AFRICAN AMERICAN 81 mL/min (90-120)
--- NOTE | 2017-02-25 08:52 | NUR ---
PT AWAKE, ALERT ORIENTED. RATES PAIN 10/10 ON ABDOMEN. CURRENTLY ON MORPHINE DIRECTOR OF ANNUAL GIVING 1MG Q10 WITH 10MG/4HR LOCK OUT. PT STATES THAT MORPHINE DOES NOT HELP EASY HER PAIN. GAVE 2MG MORPHINE BOLUS PER ORDERS. WILL SPEAK TO DOCTOR TO SEE IF SHE CAN HAVE SOMETHING ELSE FOR HER PAIN.
[2017-02-25 09:33] VITALS: BP 130/74
--- NOTE | 2017-02-25 09:54 | NUR ---
PT RATES PAIN 10/10. MORPHINE BENCH HAND DISCONTINUED. DILAUDID BENCH HAND STARTED. 0.2MG Q 10MIN, 4MG/4HR LOCK OUT, WITH 0.4MG BOLUS Q 3HR NEEDED.
[2017-02-25 11:46] LABS: PHOSPHOROUS 3.6 mg/dL (2.5-4.9)
[2017-02-25 13:40] VITALS: BP 135/73
--- NOTE | 2017-02-25 14:37 | NUR ---
SITTING ON CHAIR. PERSISTANT COUGH NOTED. DENIES ANY OTHER NEEDS AT THIS TIME.
[2017-02-25 14:47] LABS: APTT 27.9 SECONDS (22.8-39.4); INR 1.02 (0.85-1.17); PROTIME 13.3 SECONDS (11.6-15.0)
--- NOTE | 2017-02-25 16:01 | NUR ---
PT HAVING A COUGH ATTACK. RATES PAIN 10/10 DUE TO COUGH. RUNNING A TEMPERATURE OF 101.8. BLANKET REMOVED TO HELP DECREASE HER TEMPERATURE. WILL CONTINUE TO MONITOR.
[2017-02-25 17:15] VITALS: BP 130/68
[2017-02-25 19:00] VITALS: BP 124/79
--- NOTE | 2017-02-26 01:49 | NUR ---
2015)REC'D IN BED HOB UP 40 DEGREES.02 2L NC PERSISTENT COUGH PRESENT NON-PRODUCTIVE. RIGHT UPPER CHEST WITH SOME EXPIRATORY WHEEZES HEARD DENIES NAUSEA AT PRESENT TIME WILL CONTINUE TO MONITOR FOR ANY CHGES AND FOLLOW CURRENT PLAN OF CARE
[2017-02-26 04:00] VITALS: BP 146/80
[2017-02-26 07:45] LABS: BASOPHILS 0.1 % (0-2); EOSINOPHILS 0 % (0-7); HEMATOCRIT 36.4 % (36.0-48.0); IMMATURE GRANULOCYTES 0.2 % (0-5); LYMPHOCYTES 3.4 % (15-50); MCH 35.5 pg (26.0-34.0); MEAN PLATELET VOLUME 10.2 fL (7.4-10.4); MONOCYTES 3.7 % (2-11); NEUTROPHILS 92.6 % (40-80); PLATELET COUNT 266 10x3/uL (130-400); RBC 3.38 10x6/uL (4.00-5.40); RDW 16.7 % (11.5-14.5)
[2017-02-26 07:54] LABS: MCV 107.7 fL (80.0-100.0); WBC 16.4 10x3/uL (4.8-10.8)
--- NOTE | 2017-02-26 07:55 | NUR ---
PT AWAKE ALERT AND ORIENTED. RESTING ON HER BACK. REPORTS PAIN 10/10 ON HER BACK. EMPTIED 1700ML YELLOW URINE FROM CATHETER. CATHETER SECURED TO RIGHT LEG WITH BAG PLACED BELOW THE BLADDER. ON O2 4L VIA NC. DENIES OTHER NEEDS AT THIS TIME.
[2017-02-26 08:09] LABS: ALBUMIN 2.5 g/dL (3.4-5.0); ALKALINE PHOSPHATASE 95 U/L (46-116); ALT (SGPT) 18 U/L (10-68); AMYLASE - SERUM 32 U/L (25-115); BILIRUBIN - TOTAL 0.36 mg/dL (0.2-1.3); CALC OSMOLALITY 277 mosm/kg (275-300); CALCIUM 8.3 mg/dL (8.5-10.1); CHLORIDE - SERUM 101 mmol/L (98-107); CREATININE - SERUM 0.8 mg/dL (0.6-1.3); GLUCOSE 152 mg/dL (74-106); LIPASE 39 U/L (73-393); POTASSIUM - SERUM 3.3 mmol/L (3.5-5.1); PROTEIN - SERUM 5.8 g/dL (6.4-8.2); SODIUM 139 mmol/L (136-145); UREA NITROGEN 3 mg/dL (7-18); eGFR NON AFRICAN AMERICAN 81 mL/min (90-120)
[2017-02-26 09:49] VITALS: BP 116/69
[2017-02-26 10:18] LABS: ACLA - IGG AB <9 GPL U/mL (0-14); ACLA - IGM AB <9 MPL U/mL (0-12)
--- NOTE | 2017-02-26 13:26 | NUR ---
PT EATING LUNCH. EXPERIENCING SOB. O2 SAT 88 AT 3L NC. INCREASED UP TO 5L. PT SAT AT 92. PAGED DR. GRISSOM TO NOTIFY OF SOB.
--- NOTE | 2017-02-26 13:42 | NUR ---
DR. PEDERSON ORDERED CHLOROSEPTIC SPRAY TO HELP WITH SORE THROAT. KEEP SATURATION ABOVE 90% AND HE WILL BE HERE LATER TO ASSESS PATIENT.
[2017-02-26 14:21] VITALS: BP 144/66
--- NOTE | 2017-02-26 16:26 | NUR ---
PT RESTING COMFORTABLY IN BED. BREATHING HAS INPROVED. ON 5L O2 VIA NASAL CANNULA. DENIES OTHER NEEDS AT THIS TIME.
[2017-02-26 17:01] VITALS: BP 127/70
--- NOTE | 2017-02-26 19:00 | NUR ---
REPORT RECEIVED AND CARE OF PT ASSUMED. PT LYING IN SUPINE POSITION WATCHING TV. O2 AT 5L VIA NC IN USE, AND PT REPORT SOB ON EXERTION. LEFT IP ACCESSED WITH D5 LR INFUSING AT 100 ML / HR, AND DILAUDID HANDICRAFT OR HOBBY SHOP MANAGER IN USE FOR PAIN CONTROL. WILL MONITOR CLOSELY FOR NEEDS.
--- NOTE | 2017-02-26 19:05 | NUR ---
PT HAS ZOFRAN DRIP INFUSING AT 4.7 ML / HR.
[2017-02-26 20:00] VITALS: BP 133/70
--- NOTE | 2017-02-26 20:30 | NUR ---
CALLED NIRANJAN CORNELIUS APN PARTNER INTEGRATION PLANNER FOR DR QUINTEROS. PT INCREASING SOB AND WHEEZING, WITH TACHYCARDIA UP TO 145 AT TIMES. RECEIVED ORDER TO DISCONTINUE DUONEB UPDRAFT TX AND START XOLPENEX UPDRAFT TX Q6HR. IV FLUIDS DECREASED TO 75 ML / HR, CHEST XRAY PERFORMED, AND TELEMETRY PLACED. WILL CONTINUE TO MONITOR CLOSELY FOR NEEDS.
--- NOTE | 2017-02-26 21:52 | NUR ---
HS MEDICATIONS GIVEN. PT CALMER NOW AND HR DOWN TO 115 AT THIS ASSESSMENT.
--- NOTE | 2017-02-26 22:55 | NUR ---
RE-FILLED MANAGER CASINO WITH NEW VIAL OF DILAUDID. GAVE BOLUS DOSE OF 0.4MG PER PRN ORDER PER PT REQUEST. WILL CONTINUE TO MONITOR FOR NEEDS. CALL LIGHT WITHIN REACH.
[2017-02-27] VITALS: BP 129/76
--- NOTE | 2017-02-27 00:30 | NUR ---
TELEMETRY REPORT PT ST AT 110 AT THIS CHECK.
[2017-02-27 04:00] VITALS: BP 139/73
[2017-02-27 04:31] LABS: BASOPHILS 0 % (0-2); EOSINOPHILS 0 % (0-7); HEMATOCRIT 34.1 % (36.0-48.0); HEMOGLOBIN 11.2 g/dL (12-16); IMMATURE GRANULOCYTES 0.3 % (0-5); LYMPHOCYTES 3.9 % (15-50); MCH 35.3 pg (26.0-34.0); MCHC 32.8 g/dL (31.0-37.0); MCV 107.6 fL (80.0-100.0); MEAN PLATELET VOLUME 10.4 fL (7.4-10.4); NEUTROPHILS 91.8 % (40-80); PLATELET COUNT 244 10x3/uL (130-400); RBC 3.17 10x6/uL (4.00-5.40); RDW 16.7 % (11.5-14.5); WBC 15.3 10x3/uL (4.8-10.8)
[2017-02-27 04:46] LABS: ALBUMIN 2.4 g/dL (3.4-5.0); ALKALINE PHOSPHATASE 77 U/L (46-116); AMYLASE - SERUM 37 U/L (25-115); CALCIUM 7.8 mg/dL (8.5-10.1); CARBON DIOXIDE 30.3 mmol/L (21.0-32.0); CHLORIDE - SERUM 105 mmol/L (98-107); CREATININE - SERUM 0.7 mg/dL (0.6-1.3); GLUCOSE 149 mg/dL (74-106); POTASSIUM - SERUM 3.4 mmol/L (3.5-5.1); PROTEIN - SERUM 4.9 g/dL (6.4-8.2); SODIUM 141 mmol/L (136-145); eGFR NON AFRICAN AMERICAN > 90 mL/min (90-120)
[2017-02-27 04:49] LABS: ALT (SGPT) 23 U/L (10-68); CALC OSMOLALITY 279 mosm/kg (275-300); LIPASE 47 U/L (73-393); UREA NITROGEN 2 mg/dL (7-18)
[2017-02-27 08:32] VITALS: BP 152/90
[2017-02-27 14:13] VITALS: BP 145/82
[2017-02-27 16:46] VITALS: BP 126/78
--- NOTE | 2017-02-27 19:00 | NUR ---
REPORT RECEIVED AND CARE OF PT ASSUMED. PT SITTING UP IN HIGH JACOBSON'S POSITION, VISIBLY SHORT OF BREATH. SPO2 93% / 119 AT THIS ASSESSMENT. LUNG SOUNDS WITH AUDIBLE WHEEZES IN ALL LUNG SANTANA. LEFT PORT ACCESSED WITH D5 LR INFUSING AT 15 ML / HR; ZOFRAN INFUSING AT 4.7 ML / HR AND CLINICAL ACADEMIC ALLERGIST / DILAUDID IN USE FOR PAIN CONTROL. WILL MONITOR CLOSEY FOR NEEDS.
[2017-02-27 20:00] VITALS: BP 110/71
--- NOTE | 2017-02-27 20:28 | NUR ---
HS MEDICATIONS GIVEN TO INCLUDE 1 MG ATIVAN IVP FOR ANXIETY. SPOKE WITH RT ABOUT PT BEING SOB AT REST. WILL CONTINUE TO MONITOR FOR NEEDS.
--- NOTE | 2017-02-27 21:00 | NUR ---
GAVE .4 BOLUS OF DILAUDID VIA SHOCK ABSORBER INSTALLER PUMP PER PT REQUEST. WILL CONTINUE TO MONITOR FOR NEEDS.
--- NOTE | 2017-02-27 21:31 | NUR ---
PT RESTING NOW WITH EYES CLOSED...STILL WITH VISIBLE LABORED BREATHING BETWEEN SNOORS. RT GIVING BREATHING TX AT THIS TIME. WILL CONTINUE TO MONITOR FOR NEEDS.
[2017-02-28 00:08] VITALS: BP 124/71
[2017-02-28 04:00] VITALS: BP 119/73
[2017-02-28 07:01] LABS: BASOPHILS 0 % (0-2); EOSINOPHILS 0 % (0-7); HEMATOCRIT 35.4 % (36.0-48.0); HEMOGLOBIN 11.6 g/dL (12-16); IMMATURE GRANULOCYTES 0.2 % (0-5); MCH 35.2 pg (26.0-34.0); MCHC 32.8 g/dL (31.0-37.0); MCV 107.3 fL (80.0-100.0); MEAN PLATELET VOLUME 10.3 fL (7.4-10.4); MONOCYTES 3.6 % (2-11); NEUTROPHILS 90.2 % (40-80); PLATELET COUNT 229 10x3/uL (130-400); RDW 16.4 % (11.5-14.5); WBC 12.1 10x3/uL (4.8-10.8)
[2017-02-28 07:33] LABS: ALBUMIN 2.4 g/dL (3.4-5.0); ALKALINE PHOSPHATASE 81 U/L (46-116); ALT (SGPT) 22 U/L (10-68); AMYLASE - SERUM 36 U/L (25-115); CALCIUM 8.2 mg/dL (8.5-10.1); CARBON DIOXIDE 29.8 mmol/L (21.0-32.0); CHLORIDE - SERUM 99 mmol/L (98-107); CREATININE - SERUM 0.7 mg/dL (0.6-1.3); GLUCOSE 182 mg/dL (74-106); POTASSIUM - SERUM 3.6 mmol/L (3.5-5.1); PRO BNP 6345 pg/mL (0-125); PROTEIN - SERUM 5.5 g/dL (6.4-8.2); SODIUM 136 mmol/L (136-145); eGFR NON AFRICAN AMERICAN > 90 mL/min (90-120)
[2017-02-28 07:37] LABS: CALC OSMOLALITY 273 mosm/kg (275-300); LIPASE 46 U/L (73-393); UREA NITROGEN 3 mg/dL (7-18)
--- NOTE | 2017-02-28 08:37 | NUR ---
AWAKE AND ALERT. ORIENTED X3. NO C/O THIS AM. LUNGS HAVE CRACKLES AND WHEEZES THROUGHOUT LUNG SANTANA. PRODUCTIVE COUGH NOTED WITH GRAYISH SPUTUM. SKIN IS INTACT WITHOUT REDNESS EXCEPT WHAT APPEARS TO BE YEAST IN GROIN AND UNDER HER BREAST. WILL MONITOR. LEFT PORT PATENT WITHOUT REDNESS AT INSERTION SITE. SITTING UP IN BED EATING BREAKFAST. DENIES NEEDS.
[2017-02-28 09:50] VITALS: BP 144/77
--- NOTE | 2017-02-28 10:00 | NUR ---
OFF UNIT VIA WC FOR CXR.
--- NOTE | 2017-02-28 10:40 | NUR ---
RETURNED FROM EXRAY TO PER SELF. VOIDED WITHOUT DIFFICULTY. REQUESTED AND GIVEN ONE MG ATIVAN SLOW IVP FOR C/O ANXIETY. WILL MONITOR.
[2017-02-28 11:51] VITALS: BP 146/77
--- NOTE | 2017-02-28 12:15 | NUR ---
LUNCH SERVED IN ROOM. ATE ONLY A LITTLE OF SOUP. DENIES NEEDS.
--- NOTE | 2017-02-28 15:00 | NUR ---
C/O OXYMYZER CAUSING PAIN. SWITCHED TO NC PER RT. WILL MONITOR.
[2017-02-28 16:20] VITALS: BP 119/79
--- NOTE | 2017-02-28 17:15 | NUR ---
FULL LIQUID SUPPER TRAY SERVED IN ROOM ATE ABOUT HALF OF TRAY. NO CHANGES NOTED. DENIES NEEDS.
--- NOTE | 2017-02-28 19:00 | NUR ---
REPORT RECEIVED AND CARE OF PT ASSUMED. PT SITTING UP IN BED WATCHING TV. LEFT PORT PATENT WITH D5 LR INFUSING AT 15 ML / HR; ZOFRAN @ 4.7; AND CROSS ROLLER - DILAUDID FOR PAIN CONTROL. TELEMETRY IN USE AND READING [address] AT THIS ASSESSMENT. WILL MONITOR KARIN FOR NEEDS.
--- NOTE | 2017-02-28 19:15 | NUR ---
PT O2 SATS 79 ON THE 6L VIA NC. CALLED RT AND SWITCHED PT BACK TO OXYMIZER AND TITRATED UP TO 8L BEFORE PT WAS IN THE 90'S. WILL CONTINUE TO MONITOR CLOSELY.
[2017-02-28 20:00] VITALS: BP 139/76
--- NOTE | 2017-02-28 21:35 | NUR ---
HS MEDICATIONS GIVEN. WILL CONTINUE TO MONITOR FOR NEEDS.
[2017-03-01] VITALS: BP 120/70
--- NOTE | 2017-03-01 01:26 | NUR ---
GAVE PT ATIVAN 1 MG IVP PER REQUEST FOR ANXIETY. WILL CONTINUE TO MONITOR FOR NEEDS.
[2017-03-01 04:00] VITALS: BP 130/70
--- NOTE | 2017-03-01 06:08 | NUR ---
CHANDNI BLOOD FROM PORT, WITH DIFFICULTY, FOR AM LABS. FLUSHED X6 TIMES BEFORE IT STARTED TO DRAW BLOOD. DELIVERED TO GAS ROLLER OPERATOR.
[2017-03-01 06:22] LABS: BASOPHILS 0 % (0-2); EOSINOPHILS 0 % (0-7); HEMATOCRIT 36.8 % (36.0-48.0); HEMOGLOBIN 12.1 g/dL (12-16); IMMATURE GRANULOCYTES 0.6 % (0-5); MCH 34.8 pg (26.0-34.0); MCHC 32.9 g/dL (31.0-37.0); MCV 105.7 fL (80.0-100.0); MEAN PLATELET VOLUME 10.9 fL (7.4-10.4); MONOCYTES 8.6 % (2-11); NEUTROPHILS 82.8 % (40-80); PLATELET COUNT 261 10x3/uL (130-400); RBC 3.48 10x6/uL (4.00-5.40); RDW 16.4 % (11.5-14.5); WBC 10.8 10x3/uL (4.8-10.8)
[2017-03-01 06:45] LABS: ALBUMIN 2.6 g/dL (3.4-5.0); ALKALINE PHOSPHATASE 74 U/L (46-116); ALT (SGPT) 22 U/L (10-68); AMYLASE - SERUM 44 U/L (25-115); CALCIUM 8.7 mg/dL (8.5-10.1); CARBON DIOXIDE 30.5 mmol/L (21.0-32.0); CHLORIDE - SERUM 99 mmol/L (98-107); CREATININE - SERUM 0.8 mg/dL (0.6-1.3); GLUCOSE 162 mg/dL (74-106); POTASSIUM - SERUM 3.2 mmol/L (3.5-5.1); PRO BNP 4415 pg/mL (0-125); PROTEIN - SERUM 5.9 g/dL (6.4-8.2); SODIUM 139 mmol/L (136-145); eGFR NON AFRICAN AMERICAN 81 mL/min (90-120)
[2017-03-01 06:47] LABS: CALC OSMOLALITY 278 mosm/kg (275-300); LIPASE 49 U/L (73-393); UREA NITROGEN 4 mg/dL (7-18)
--- NOTE | 2017-03-01 07:12 | NUR ---
POTASSIUM 3.2 THIS AM...REQUIRING COVERAGE WITH 40 MEQ POTASSIUM PO PER ELECTROLYTE PROTOCOL.
--- NOTE | 2017-03-01 07:16 | NUR ---
PATIENT RESTING IN HER BED. PATIENT IS AWAKE, ALERT, AND ORIENTED X4. PITCH GATHERER DILAUDID IN USE FOR PAIN CONTROL. PATIENT DENIES ANY NEEDS AT PRESENT TIME. CALL LIGHT IN PATIENT'S REACH. WILL MONITOR PATIENT.
[2017-03-01 08:00] VITALS: BP 162/90
--- NOTE | 2017-03-01 10:00 | NUR ---
PATIENT RESTING IN HER BED AND WATCHING T.V. PATIENT IS AWAKE, ALERT, AND ORIENTED X4. DONOR SPECIALIST DILAUDID IN USE FOR PAIN CONTROL. TELEMETRY IN PLACE SHOWING SINUS TACHYCARDIA WITH A RATE OF 126. ASSESSMENT COMPLETED. SEE FLOW SHEET FOR ANY DETAILS. PATIENT DENIES ANY NEEDS AT PRESENT TIME. CALL LIGHT IN PATIENT'S REACH. WILL MONITOR PATIENT.
[2017-03-01 11:00] VITALS: BP 160/88
--- NOTE | 2017-03-01 11:00 | NUR ---
PATIENT REPORTS ANXIETY AND REQUESTS ATIVAN. PRN ATIVAN 1 MG IV GIVEN TO PATIENT. PATIENT TOLERATED WELL. CALL LIGHT IN PATIENT'S REACH. WILL MONITOR PATIENT.
[2017-03-01 18:23] VITALS: BP 134/85
--- NOTE | 2017-03-01 19:00 | NUR ---
REPORT RECEIVED AND CARE OF PT ASSUMED. PT LYING IN SEMI JACOBSON'S POSITON READING. LEFT IP ACCESSED WITH D5 LR INFSING AT 15 ML / HR. BAGGAGE SCREENER / DILAUDID IN USE FOR PAIN CONTROL. ZOFRAN INFUSING AT 4.7 ML / HR. TELEMETRY IN PLACE AND PT READING ST AT THIS ASSESSMENT. WILL MONITOR FOR NEEDS.
--- NOTE | 2017-03-01 19:18 | NUR ---
GAVE ATIVAN 1 MG IVP PER PT REQUEST FOR ANXIETY. WILL MONITOR FOR EFFECTIVENESS.
[2017-03-01 20:00] VITALS: BP 167/91
--- NOTE | 2017-03-01 20:50 | NUR ---
HS MEDICATIONS GIVEN. WILL CONTINUE TO MONITOR FOR NEEDS.
--- NOTE | 2017-03-01 22:05 | NUR ---
GAVE 0.4 BOLUS OF DILAUDID VIA MOHS SURGEON/GENERAL DERMATOLOGIST PER ORDER. WILL CONTINUE TO MONITOR FOR NEEDS.
[2017-03-02] VITALS: BP 151/90
[2017-03-02 04:00] VITALS: BP 163/98
[2017-03-02 05:27] LABS: BASOPHILS 0 % (0-2); EOSINOPHILS 0 % (0-7); HEMATOCRIT 35.2 % (36.0-48.0); HEMOGLOBIN 11.6 g/dL (12-16); IMMATURE GRANULOCYTES 0.6 % (0-5); LYMPHOCYTES 10.7 % (15-50); MCH 34.6 pg (26.0-34.0); MCV 105.1 fL (80.0-100.0); MEAN PLATELET VOLUME 10.4 fL (7.4-10.4); MONOCYTES 11.5 % (2-11); NEUTROPHILS 77.2 % (40-80); PLATELET COUNT 267 10x3/uL (130-400); RBC 3.35 10x6/uL (4.00-5.40); RDW 16.3 % (11.5-14.5); WBC 10.8 10x3/uL (4.8-10.8)
[2017-03-02 06:39] LABS: ANION GAP 15.3 mmol/L (8-16); CALCIUM 8.8 mg/dL (8.5-10.1); CARBON DIOXIDE 29.1 mmol/L (21.0-32.0); CREATININE - SERUM 0.9 mg/dL (0.6-1.3); POTASSIUM - SERUM 3.4 mmol/L (3.5-5.1)
--- NOTE | 2017-03-02 06:53 | NUR ---
POTASSIUM 3.4 THIS AM. GAVE 40 MEQ PO PER ELECTROLYTE PROTOCOL. WILL RE-CHECK IN 4 HOURS.
--- NOTE | 2017-03-02 07:42 | NUR ---
PT AWAKE AND ALERT. SOB NOTED. PT DISCONNECTED FROM IV. GOING DOWN TO XRAY.
[2017-03-02 08:59] VITALS: BP 154/64
[2017-03-02 11:41] VITALS: BP 135/75
--- NOTE | 2017-03-02 12:47 | NUR ---
PT EATING LUNCH. NOON MEDS GIVEN. LORAZEPAM 1MG GIVEN FOR ANXIETY. PT DENIES OTHER NEEDS AT THIS TIME.
[2017-03-02 16:19] VITALS: BP 114/72
--- NOTE | 2017-03-02 18:49 | NUR ---
PT RESTING QUIETLY. DENIES NEEDS AT THIS TIME.
--- NOTE | 2017-03-02 19:25 | NUR ---
RECIEVED SHIFT REPORT. PT IS LYING IN BED. ALERT AND ORIENTED AND ABLE TO VERBALIZE NEEDS. IV IS PATENT AND FLUIDS ARE RUNNING PER ORDER. O2 @ 6 PER OXIMIZER. PT IS AMBULATORY BUT WAS INSTRUCTED TO CALL FOR ANY ASSISTANCE NEEDED. PT STATES PAIN IS 7/10 WITH GYPSUM BLOCK SETTER PUMP. NO NEEDS ARE VERBALIZED AT THIS TIME. WILL CONTINUE TO MONITOR. SIDE RAILS ARE UP X 2. BED IS IN LOWEST POSITION. CALL LIGHT IS WITHIN REACH.
[2017-03-02 20:00] VITALS: BP 145/91
--- NOTE | 2017-03-02 21:03 | NUR ---
SHIFT ASSESSMENT COMPLETED. NIGHT MEDS GIVEN WITH NO PROBMLEMS. PT REQUESTING PRN BOLUS DOSE ON NUT CRACKER. ADMINISTERED PER ORDER. NO FURTHER NEEDS VOICED AT THIS TIME. WILL MONITOR. SIDE RAILS X 2. BED IS LOW. CALL LIGHT IN REACH.
[2017-03-03] VITALS: BP 151/98
--- NOTE | 2017-03-03 01:15 | NUR ---
AID CAME TO ME AND STATED SHE FOUND PT IN FLOOR. PT STATES SHE WAS GETTING UP TO THE BEDSIDE COMMODE AND SLIPPED ON HER O2 TUBING. TUBING HAD 2 CONNECTORS TO IT. PT STATES SHE FELL ON HER BUTTOCKS. DENIES ANY NEW PAIN BESIDE WHAT SHE HAS ALREADY BEEN EXPERIENCING. VSS. TEMP=98.2, XS=084, B/P=103/67, RR=25, O2 SAT=92%. PT STATES SHE DOES NOT NEED HER FAMILY TO KNOW ABOUT THIS. WILL PAGE WELDER TOOL AND DIE MD. PT DID HAVE NONSKID SOCKS ON, BUT WAS NOT A FALL RISK UPON ASSESSMENT. FALL SCORE=2. PT INSTRUCTED THAT SHE WOULD NOW BE A FALL RISK AND WOULD REQUIRE A BED ALARM. ALSO YELLOW ARM BAND PLACED ON. BED ALARM TURNED ON FOR SAFETY.
--- NOTE | 2017-03-03 01:40 | NUR ---
CALL PLACE TO MD GEOPHYSICAL PROSPECTING SURVEYOR NIRANJAN. WILL AWAIT CALL BACK.
--- NOTE | 2017-03-03 02:50 | NUR ---
ANOTHER CALL PLACED TO SHIPPING AND RECEIVING ASSOCIATE NIRANJAN. WILL AWAIT CALL BACK.
--- NOTE | 2017-03-03 03:00 | NUR ---
CALL RECIEVED FROM NIRANJAN AT THIS TIME. SITUATION REVIEWED. NO NEW ORDERS AT THIS TIME.
[2017-03-03 03:59] VITALS: BP 163/87
[2017-03-03 06:47] LABS: BASOPHILS 0.1 % (0-2); EOSINOPHILS 0 % (0-7); HEMATOCRIT 35.7 % (36.0-48.0); HEMOGLOBIN 11.8 g/dL (12-16); IMMATURE GRANULOCYTES 1.2 % (0-5); LYMPHOCYTES 9.2 % (15-50); MCH 34.6 pg (26.0-34.0); MCHC 33.1 g/dL (31.0-37.0); MCV 104.7 fL (80.0-100.0); MEAN PLATELET VOLUME 10.6 fL (7.4-10.4); MONOCYTES 10.8 % (2-11); NEUTROPHILS 78.7 % (40-80); PLATELET COUNT 294 10x3/uL (130-400); RBC 3.41 10x6/uL (4.00-5.40); RDW 16.4 % (11.5-14.5)
--- NOTE | 2017-03-03 07:28 | NUR ---
PT LAYING TO LEFT SIDE SLEEPING NO S/S DISTRESS NOTED RR EVEN AND UNLABORED WILL CONT TO MONITOR
[2017-03-03 07:38] LABS: ALBUMIN 2.4 g/dL (3.4-5.0); ANION GAP 15.5 mmol/L (8-16); BILIRUBIN - TOTAL 0.2 mg/dL (0.2-1.3); CALCIUM 8.5 mg/dL (8.5-10.1); CREATININE - SERUM 0.9 mg/dL (0.6-1.3); POTASSIUM - SERUM 3.5 mmol/L (3.5-5.1); PROTEIN - SERUM 5.4 g/dL (6.4-8.2)
[2017-03-03 07:59] LABS: MAGNESIUM - SERUM 1.2 mg/dL (1.8-2.4); PHOSPHOROUS 3.4 mg/dL (2.5-4.9)
[2017-03-03 09:24] VITALS: BP 120/67
--- NOTE | 2017-03-03 09:54 | NUR ---
PT PULLED OUT PORT IZZY NEEDLE NEEDLE TIP INTACT. ATTEMPTED TO RESITE PT UNSUCCESSFUL. ASKED GILL CONFIGURATOR TO RESITE, COULDNT GET SITE. SHE CALLED MARGY POTTS NURSE, SHE IS COMING TO ATTEMPT PT RESITE.
--- NOTE | 2017-03-03 10:13 | NUR ---
Called to help access IPOrt. Ojhnson needle 1 07/07 19 gauge needle in left chest wall x 1 stick after sterile prep w chloraprep, following hospital protocol. Site flushes easily and with good blood return. Inez Henriquez RN
--- NOTE | 2017-03-03 13:34 | NUR ---
PT LAYING TO R SIDE SLEEPING NO S/S DISTRESS RR EVEN AND UNLABORED. PT IS WITH DILAUDID CONTRACT ADMINISTRATION SPECIALIST PUMP NOTED INFUSING TO LEFT CHEST IP, NO PROBLEMS. FLUIDS ALSO INFUSING ALONG WITH ZOFRAN DRIP. ALL TUBING WAS CHANGED TODAY AND CORRECTLY DATED WITH TODAYS DATE AND MY INITIALS. ALL ORFICES HAVE SWAB CAPS EVERYTHING IS PATENT PER POLICY. PT WITH NO CONCERNS OR COMPLAINTS WILL CONT TO MONITOR.
[2017-03-03 14:02] VITALS: BP 133/84
--- NOTE | 2017-03-03 14:31 | NUR ---
NUTRITION F/U CHART REVIEWED. PT VISIT. TOLERATING LOW FAT/GASTRIC SOFT DIET. 50% INTAKE RECENT MEALS. WILL CONTINUE TO PROVIDE DIET, MONITOR PO INTAKE. RD FOLLOWING
[2017-03-03 16:20] VITALS: BP 128/73
[2017-03-03 17:40] LABS: HEMOGLOBIN A1C 7.2 % (4.8-6.0)
--- NOTE | 2017-03-03 19:35 | NUR ---
RECIEVED SHIFT REPORT. PT IS LYING IN BED. ALERT AND ORIENTED AND ABLE TO VERBALIZE NEEDS. IV IS PATENT AND FLUIDS ARE RUNNING PER ORDER. O2 @ 5 PER OXIMIZER. PT IS AMBULATORY BUT WAS INSTRUCTED TO CALL FOR ANY ASSISTANCE NEEDED. PT STATES PAIN IS 7/10. NO NEEDS ARE VERBALIZED AT THIS TIME. WILL CONTINUE TO MONITOR. SIDE RAILS ARE UP X 2. BED IS IN LOWEST POSITION. BED ALARM IS ON FOR SAFETY. CALL LIGHT IS WITHIN REACH.
[2017-03-03 20:00] VITALS: BP 129/76
--- NOTE | 2017-03-03 22:18 | NUR ---
SHIFT ASSESSMENT COMPLETED. NIGHT MEDS GIVEN WITH NO PROBLEMS. PT C/O PAIN 03/15. ADMINISTERED PRESCRIBED PRN NORCO PER ORDER. DENIES FURTHER NEEDS. WILL MONITOR. SIDE RAILS X 2. BED IS LOW. BED ALARM ON. CALL LIGHT IN REACH.
[2017-03-04 04:00] VITALS: BP 161/98
[2017-03-04 06:03] LABS: BASOPHILS 0 % (0-2); EOSINOPHILS 0 % (0-7); HEMATOCRIT 34.4 % (36.0-48.0); IMMATURE GRANULOCYTES 0.9 % (0-5); LYMPHOCYTES 7.6 % (15-50); MCH 35.9 pg (26.0-34.0); MCHC 34.9 g/dL (31.0-37.0); MEAN PLATELET VOLUME 10.3 fL (7.4-10.4); MONOCYTES 7.8 % (2-11); NEUTROPHILS 83.7 % (40-80); PLATELET COUNT 294 10x3/uL (130-400); RBC 3.34 10x6/uL (4.00-5.40); RDW 16.6 % (11.5-14.5); WBC 12.5 10x3/uL (4.8-10.8)
[2017-03-04 06:18] LABS: ALBUMIN 2.3 g/dL (3.4-5.0); ALKALINE PHOSPHATASE 60 U/L (46-116); ALT (SGPT) 14 U/L (10-68); BILIRUBIN - TOTAL 0.39 mg/dL (0.2-1.3); CALCIUM 8.4 mg/dL (8.5-10.1); CARBON DIOXIDE 34.6 mmol/L (21.0-32.0); CHLORIDE - SERUM 98 mmol/L (98-107); CREATININE - SERUM 0.8 mg/dL (0.6-1.3); MAGNESIUM - SERUM 1.3 mg/dL (1.8-2.4); PHOSPHOROUS 3.6 mg/dL (2.5-4.9); POTASSIUM - SERUM 3.5 mmol/L (3.5-5.1); PROTEIN - SERUM 5.3 g/dL (6.4-8.2); SODIUM 138 mmol/L (136-145); eGFR NON AFRICAN AMERICAN 81 mL/min (90-120)
[2017-03-04 06:20] LABS: CALC OSMOLALITY 279 mosm/kg (275-300); GLUCOSE 190 mg/dL (74-106); UREA NITROGEN 9 mg/dL (7-18)
[2017-03-04 07:25] LABS: OVA + PARASITE EXAM Final report (())
--- NOTE | 2017-03-04 07:45 | NUR ---
PT AOX4 RESP EVEN AND NONLABORED PT DENIES NEEDS AT THIS TIME NO IV ACCESS AT THIS TIME SRX2 BED AT LOWEST SETTING CALL LIGHT WITHIN REACH WILL CONTINUE TO MONITOR
[2017-03-04 08:21] VITALS: BP 155/93
--- NOTE | 2017-03-04 11:39 | NUR ---
Requested to access IPORT on patient. Following hospital policy, sterile prep with chloraprep. 19 gauge, 1 1/2 inch needle with blood return. SIte dressed with biopatch and tegaderm dressing. Inez Newberry RN
[2017-03-04 12:00] VITALS: BP 151/78
[2017-03-04 16:31] VITALS: BP 125/68
--- NOTE | 2017-03-04 19:35 | NUR ---
RECIEVED SHIFT REPORT. PT IS LYING IN BED. ALERT AND ORIENTED AND ABLE TO VERBALIZE NEEDS. IV IS PATENT AND FLUIDS ARE RUNNING PER ORDER. O2 @ 5 PER OXIMIZER. PT IS AMBULATORY BUT WAS INSTRUCTED TO CALL FOR ANY ASSISTANCE NEEDED. PT STATES PAIN IS 9/10. NO NEEDS ARE VERBALIZED AT THIS TIME. WILL CONTINUE TO MONITOR. SIDE RAILS ARE UP 2. BED IS IN LOWEST POSITION. BED ALARM IS ON FOR SAFETY. CALL LIGHT IS WITHIN REACH.
[2017-03-04 20:00] VITALS: BP 121/73
--- NOTE | 2017-03-04 20:34 | NUR ---
SHIFT ASSESSMENT COMPLETED. NIGHT MEDS GIVEN WITH NO PROBLEMS. PT C/O PAIN 03/15. ADMINISTERED PRESCRIBED PRN NORCO PER ORDER. PT ALSO REQUESTING PRN ATIVAN. ADMINISTERED PER ORDER. NO FURTHER NEEDS. WILL MONITOR. SIDE RAILS X 2. BED LOW. BED ALARM ON. CALL LIGHT IN REACH.
[2017-03-05 05:35] LABS: BASOPHILS 0 % (0-2); EOSINOPHILS 0 % (0-7); HEMATOCRIT 33.8 % (36.0-48.0); HEMOGLOBIN 11.3 g/dL (12-16); IMMATURE GRANULOCYTES 1.3 % (0-5); LYMPHOCYTES 15.3 % (15-50); MCH 34.7 pg (26.0-34.0); MCHC 33.4 g/dL (31.0-37.0); MCV 103.7 fL (80.0-100.0); MEAN PLATELET VOLUME 9.9 fL (7.4-10.4); NEUTROPHILS 74.4 % (40-80); PLATELET COUNT 292 10x3/uL (130-400); RBC 3.26 10x6/uL (4.00-5.40); RDW 16.7 % (11.5-14.5)
[2017-03-05 05:38] LABS: WBC 8.9 10x3/uL (4.8-10.8)
[2017-03-05 05:51] LABS: ALBUMIN 2.3 g/dL (3.4-5.0); ALKALINE PHOSPHATASE 57 U/L (46-116); ALT (SGPT) 14 U/L (10-68); CALC OSMOLALITY 289 mosm/kg (275-300); CALCIUM 8.7 mg/dL (8.5-10.1); CARBON DIOXIDE 32.5 mmol/L (21.0-32.0); CHLORIDE - SERUM 103 mmol/L (98-107); CREATININE - SERUM 0.8 mg/dL (0.6-1.3); GLUCOSE 201 mg/dL (74-106); MAGNESIUM - SERUM 1.4 mg/dL (1.8-2.4); POTASSIUM - SERUM 3.7 mmol/L (3.5-5.1); PROTEIN - SERUM 5.1 g/dL (6.4-8.2); SODIUM 143 mmol/L (136-145); UREA NITROGEN 9 mg/dL (7-18); eGFR NON AFRICAN AMERICAN 81 mL/min (90-120)
[2017-03-05 08:07] VITALS: BP 155/76
--- NOTE | 2017-03-05 10:52 | NUR ---
PT AOX4 RESP EVEN AND NONLABORED PT DENIES NEEDS AT THIS TIME IV TO LEFT CHEST PORT PATENT AND INTACT AT THIS TIME SRX2 BED AT LOWEST SETTING CALL LIGHT WITHIN REACH WILL CONTINUE TO MONITOR
[2017-03-05 11:59] VITALS: BP 118/71
[2017-03-05 15:04] VITALS: BP 107/63
[2017-03-05 20:00] VITALS: BP 128/61
[2017-03-06] VITALS: BP 158/79
[2017-03-06 04:00] VITALS: BP 162/79
[2017-03-06 05:46] LABS: BASOPHILS 0.1 % (0-2); EOSINOPHILS 0 % (0-7); HEMATOCRIT 34.3 % (36.0-48.0); HEMOGLOBIN 11.4 g/dL (12-16); IMMATURE GRANULOCYTES 1.2 % (0-5); LYMPHOCYTES 11.3 % (15-50); MCH 34.1 pg (26.0-34.0); MCHC 33.2 g/dL (31.0-37.0); MCV 102.7 fL (80.0-100.0); MEAN PLATELET VOLUME 9.6 fL (7.4-10.4); MONOCYTES 8.4 % (2-11); PLATELET COUNT 315 10x3/uL (130-400); RBC 3.34 10x6/uL (4.00-5.40); RDW 16.9 % (11.5-14.5)
[2017-03-06 05:47] LABS: WBC 11.8 10x3/uL (4.8-10.8)
[2017-03-06 06:16] LABS: ALBUMIN 2.4 g/dL (3.4-5.0); ALKALINE PHOSPHATASE 58 U/L (46-116); ALT (SGPT) 13 U/L (10-68); CALC OSMOLALITY 285 mosm/kg (275-300); CARBON DIOXIDE 29.9 mmol/L (21.0-32.0); CHLORIDE - SERUM 101 mmol/L (98-107); CREATININE - SERUM 0.7 mg/dL (0.6-1.3); MAGNESIUM - SERUM 1.7 mg/dL (1.8-2.4); PROTEIN - SERUM 5.4 g/dL (6.4-8.2); SODIUM 138 mmol/L (136-145); UREA NITROGEN 9 mg/dL (7-18); eGFR NON AFRICAN AMERICAN > 90 mL/min (90-120)
[2017-03-06 06:17] LABS: GLUCOSE 290 mg/dL (74-106)
[2017-03-06 08:05] VITALS: BP 144/80
--- NOTE | 2017-03-06 08:50 | NUR ---
PT EATING BREAKFAST. TEMETRY MONITOR SHOWS SYNUS TACHICARDIA AT 130.
--- NOTE | 2017-03-06 12:27 | NUR ---
PT REPORTED SOME NAUSEA. GAVE 4MG OF ZOFRAN PER ORDERS. NO OTHER NEEDS AT THIS TIME.
[2017-03-06 12:28] VITALS: BP 141/75
--- NOTE | 2017-03-06 15:01 | NUR ---
NUTRITION F/U CHART REVIEWED, PT TOLERATING CURRENT DIET WITH ~50% INTAKE RECENT MEALS. WILL CONTINUE TO PROVIDE DIET, MONITOR INTAKE. RD FOLLOWING
[2017-03-06 16:00] VITALS: BP 156/78
--- NOTE | 2017-03-06 19:32 | NUR ---
PATIENT RESTING IN BED AND REQUESTED COUGH MEDS WHEN DUE. BED IN LOWEST POSITION AND CALL LIGHT WITHIN REACH. ENCOURAGED THE PATIENT TO CALL IF SHE HAS NEEDS.
[2017-03-06 20:00] VITALS: BP 138/80
[2017-03-07] VITALS: BP 146/77
[2017-03-07 04:09] VITALS: BP 155/65
[2017-03-07 06:10] LABS: BASOPHILS 0.1 % (0-2); EOSINOPHILS 0 % (0-7); HEMATOCRIT 34.1 % (36.0-48.0); HEMOGLOBIN 11.3 g/dL (12-16); IMMATURE GRANULOCYTES 1.5 % (0-5); LYMPHOCYTES 9.9 % (15-50); MCH 34.3 pg (26.0-34.0); MCHC 33.1 g/dL (31.0-37.0); MCV 103.6 fL (80.0-100.0); MEAN PLATELET VOLUME 9.8 fL (7.4-10.4); MONOCYTES 7.1 % (2-11); NEUTROPHILS 81.4 % (40-80); PLATELET COUNT 337 10x3/uL (130-400); RBC 3.29 10x6/uL (4.00-5.40); RDW 16.6 % (11.5-14.5); WBC 12.5 10x3/uL (4.8-10.8)
[2017-03-07 06:33] LABS: ALBUMIN 2.4 g/dL (3.4-5.0); ALKALINE PHOSPHATASE 59 U/L (46-116); ALT (SGPT) 12 U/L (10-68); CALC OSMOLALITY 288 mosm/kg (275-300); CALCIUM 9.3 mg/dL (8.5-10.1); CARBON DIOXIDE 29.5 mmol/L (21.0-32.0); CHLORIDE - SERUM 102 mmol/L (98-107); CREATININE - SERUM 0.7 mg/dL (0.6-1.3); GLUCOSE 320 mg/dL (74-106); POTASSIUM - SERUM 4.2 mmol/L (3.5-5.1); PROTEIN - SERUM 5.4 g/dL (6.4-8.2); SODIUM 139 mmol/L (136-145); UREA NITROGEN 10 mg/dL (7-18); VANCOMYCIN - TROUGH 13.6 ug/mL (10.0-20.0); eGFR NON AFRICAN AMERICAN > 90 mL/min (90-120)
--- NOTE | 2017-03-07 07:30 | NUR ---
REPORT RECIEIVED FROM NIGHT NURSE. WALKING ROUNDS PREFORMED. ASSESSMENT PER FLOW SHEET. PT SITTING UP IN BED, AMBULATORY. REPORTS NO NEEDS. IV INFUSING TO LEFT PORT. CALL LIGHT AT SIDE.
[2017-03-07 08:10] VITALS: BP 176/86
--- NOTE | 2017-03-07 10:15 | NUR ---
ALERT IN BED WITH FAMILY AND NURSE PRESENT.NO SIGNS OF DISTRESS NOTED. SIDE RAILS UP X2. BED IN LOW POSITION. CALL LIGHT IN REACH.
[2017-03-07 12:40] VITALS: BP 134/83
[2017-03-07 15:57] VITALS: BP 105/63
--- NOTE | 2017-03-07 19:30 | NUR ---
PATIENT RESTING IN BED AND DENIES NEEDS AT THIS TIME. BED IN LOWEST POSITION AND CALL LIGHT WITHIN REACH. ENCOURAGED THE PATIENT TO CALL IF SHE HAS NEEDS.
[2017-03-07 20:00] VITALS: BP 146/81
[2017-03-08] VITALS: BP 169/68
[2017-03-08 04:00] VITALS: BP 162/87
--- NOTE | 2017-03-08 07:00 | NUR ---
PT REC'D FROM MICHAEL LUTZ. RESTING IN BED WATCHING TV. AAOX4. RATING CURRENT PAIN IN ABD 02/12. WILL REASSESS. REGULAR HEART RATE AND RHYTHM. EXPIRATORY WHEEZES NOTED TO RU AND RML. BILAT LOWER LOBES DIMINISHED. BOWEL SOUNDS ACTIVE X4 QUADS. L CHEST PORT ACCESSED PREVIOUSLY FREE OF REDNESS AND SWELLING. DRESSING CDI. BED LOW, CALL LIGHT IN REACH, DENIES NEEDS. CPOC.
--- NOTE | 2017-03-08 08:05 | NUR ---
MORNING MEDS PASSED AT THIS TIME. PRN ANTIEMETIC ADMINISTERED PER PT REQUEST. BED LOW, CALL LIGHT IN REACH, BREAKFAST TRAY AT BEDSIDE. CPOC.
[2017-03-08 08:20] VITALS: BP 166/79
--- NOTE | 2017-03-08 12:30 | NUR ---
SCHEDULED MEDS ADMINISTERED AT THIS TIME. PRN ANTITUSSIVE, ANTIANXIETY, AND PAIN MEDICATION ADMINISTERED PER PT REQUEST AND COMPLAINTS OF FEELING ANXIOUS, HAVING A SORE THROAT, AND 7/10 ABD PAIN. WILL REASSESS. LUNCH TRAY AT BEDSIDE. DENIES NEEDS. CPOC.
[2017-03-08 12:43] VITALS: BP 178/87
[2017-03-08 15:44] VITALS: BP 194/101
--- NOTE | 2017-03-08 17:15 | NUR ---
CURRENT FSBS 435. 12 UNITS OF INSULIN ADMINISTERED PER SS. DR. RÍOS NOTIFIED. NEW ORDERS REC'D. IV INSULIN ADMINISTERED BY MICHAEL FAY.
[2017-03-08 20:00] VITALS: BP 124/68
[2017-03-09 04:00] VITALS: BP 172/84
--- NOTE | 2017-03-09 07:00 | NUR ---
REPORT RECIEVED ASSUMED CARE. PATIENT IN BED WITH IV INTACT. NO COMPLAINTS. CALL LIGHT WITHIN REACH.
[2017-03-09 08:54] VITALS: BP 128/68
[2017-03-09 12:30] VITALS: BP 124/87
[2017-03-09 16:36] VITALS: BP 141/72
[2017-03-09 16:59] VITALS: BP 141/72
--- NOTE | 2017-03-09 18:55 | NUR ---
PATIENT IN BED WITH IV INTACT. NO COMPLAINTS. CALL LIGHT WITHIN REACH.
[2017-03-09 20:00] VITALS: BP 128/64
[2017-03-10] VITALS: BP 103/65
[2017-03-10 04:00] VITALS: BP 114/66
--- NOTE | 2017-03-10 07:51 | NUR ---
PATIENT SITTING UP IN BED WITH EYES OPEN. IV INTACT. STATED HAVING DIARRHEA AND VOMITTING. WILL GIVE ZOFRAN. NO OTHER COMPLAINTS. CALL LIGHT WITHIN REACH.
[2017-03-10 08:18] VITALS: BP 128/70
[2017-03-10 10:13] LABS: BASOPHILS 0.1 % (0-2); EOSINOPHILS 0.7 % (0-7); IMMATURE GRANULOCYTES 2.8 % (0-5); LYMPHOCYTES 20.2 % (15-50); MCH 34.7 pg (26.0-34.0); MCHC 33.3 g/dL (31.0-37.0); MCV 104.1 fL (80.0-100.0); MEAN PLATELET VOLUME 9.5 fL (7.4-10.4); MONOCYTES 7.8 % (2-11); NEUTROPHILS 68.4 % (40-80); PLATELET COUNT 286 10x3/uL (130-400); RBC 3.17 10x6/uL (4.00-5.40); WBC 17.4 10x3/uL (4.8-10.8)
[2017-03-10 10:29] LABS: ALBUMIN 2.3 g/dL (3.4-5.0); ALKALINE PHOSPHATASE 59 U/L (46-116); ALT (SGPT) 18 U/L (10-68); BILIRUBIN - TOTAL 0.48 mg/dL (0.2-1.3); CALC OSMOLALITY 279 mosm/kg (275-300); CALCIUM 8.4 mg/dL (8.5-10.1); CARBON DIOXIDE 29.1 mmol/L (21.0-32.0); CHLORIDE - SERUM 102 mmol/L (98-107); CREATININE - SERUM 0.8 mg/dL (0.6-1.3); GLUCOSE 161 mg/dL (74-106); PROTEIN - SERUM 5.4 g/dL (6.4-8.2); SODIUM 139 mmol/L (136-145); UREA NITROGEN 10 mg/dL (7-18); eGFR NON AFRICAN AMERICAN 81 mL/min (90-120)
[2017-03-10] MEDS ORDERED: LEVSIN/ANASP0.125 MG SL (12:01)
[2017-03-10] MEDS ORDERED: XOPENEX 1.1.25 MG/3 INH (12:01)
[2017-03-10] MEDS ORDERED: ATROVENT 0.02%2.5 ML UPD (12:01)
[2017-03-10] MEDS ORDERED: AFRIN NASAL SPR15 ML NASAL (12:02)
[2017-03-10] MEDS ORDERED: CREON (PANCRELI1 CAP PO (12:02)
[2017-03-10] MEDS ORDERED: NYSTATIN1 PWD TOPICAL (12:03)
[2017-03-10] MEDS ORDERED: FLORAJEN3 CAPS460 MG PO (12:03)
[2017-03-10] MEDS ORDERED: SALINE NASAL SP45 ML NASAL (12:06)
[2017-03-10] MEDS ORDERED: PREDNISONE10 MG PO (12:07)
[2017-03-10] MEDS ORDERED: VIBRAMYCIN 100100 MG PO (12:07)
[2017-03-10] MEDS ORDERED: METOPROLOL TART50 MG PO (12:08)
[2017-03-10] MEDS ORDERED: ZOFRAN4 MG PO (12:09)
[2017-03-10] MEDS ORDERED: HYDROCODONE-APA1 TAB PO (12:10)
[2017-03-10 12:44] VITALS: BP 154/77
--- NOTE | 2017-03-10 13:36 | NUR ---
CM REASSESSMENT NOTE: CM MET WITH PATIENT REGARDING D/C NEEDS AND PLANS. PATIENT WANTED TO CHANGE TO CARE IV HOME [facility] SIGNED. DOES NOT WANT [facility] ANY LONGER. PATIENTS SISTER IS DRIVING HER HOME. IMM SERVED
== END 2017-03-10 19:31 | disposition home health service (06) | DRG 438 ==
LOC: D.ER 17:28 → D.MS 22:25
PROVIDERS: Emergency Medicine; Family Medicine; Internal Medicine Gastroenterology; Internal Medicine Hematology & Oncology; Physician Assistant; ADMIT Family Medicine
DX: K85.90 Acute pancreatitis without necrosis or infection, unspecified (principal); J96.01 Acute respiratory failure with hypoxia; J18.9 Pneumonia, unspecified organism; J44.1 Chronic obstructive pulmonary disease with (acute) exacerbation; K86.1 Other chronic pancreatitis; M06.9 Rheumatoid arthritis, unspecified; K59.09 Other constipation; E87.6 Hypokalemia; R13.10 Dysphagia, unspecified; I10 Essential (primary) hypertension; D21.9 Benign neoplasm of connective and other soft tissue, unspecified; E11.9 Type 2 diabetes mellitus without complications; D64.9 Anemia, unspecified; R04.0 Epistaxis; Z87.891 Personal history of nicotine dependence

== ENCOUNTER 2017-03-26 10:34 | Emergency (ER) | payer MEDICARE ==
[2017-02-24 15:17] VITALS: BMI 29.0
[~2017-03-26 10:34] MED LIST changes: +AFRIN NASAL SPR15 ML NASAL; +ATROVENT 0.02%2.5 ML UPD; +FLORAJEN3 CAPS460 MG PO; +LEVSIN/ANASP0.125 MG SL; +NYSTATIN1 PWD TOPICAL; +SALINE NASAL SP45 ML NASAL; +VIBRAMYCIN 100100 MG PO; +XOPENEX 1.1.25 MG/3 INH
[2017-03-26 11:58] LABS: BASOPHILS 0.1 % (0-2); EOSINOPHILS 1.2 % (0-7); HEMATOCRIT 43.4 % (36.0-48.0); HEMOGLOBIN 14.5 g/dL (12-16); IMMATURE GRANULOCYTES 0.4 % (0-5); LYMPHOCYTES 39.9 % (15-50); MCH 34.5 pg (26.0-34.0); MCHC 33.4 g/dL (31.0-37.0); MCV 103.3 fL (80.0-100.0); MEAN PLATELET VOLUME 9.4 fL (7.4-10.4); MONOCYTES 12.7 % (2-11); NEUTROPHILS 45.7 % (40-80); PLATELET COUNT 314 10x3/uL (130-400); RDW 16.3 % (11.5-14.5); WBC 7.7 10x3/uL (4.8-10.8)
[2017-03-26 12:14] LABS: ALBUMIN 3.4 g/dL (3.4-5.0); ALKALINE PHOSPHATASE 120 U/L (46-116); ALT (SGPT) 22 U/L (10-68); AMYLASE - SERUM 62 U/L (25-115); BILIRUBIN - TOTAL 0.96 mg/dL (0.2-1.3); CALC OSMOLALITY 279 mosm/kg (275-300); CALCIUM 9.6 mg/dL (8.5-10.1); CARBON DIOXIDE 24.4 mmol/L (21.0-32.0); CHLORIDE - SERUM 104 mmol/L (98-107); CREATININE - SERUM 0.7 mg/dL (0.6-1.3); GLUCOSE 115 mg/dL (74-106); LIPASE 161 U/L (73-393); POTASSIUM - SERUM 3.7 mmol/L (3.5-5.1); PROTEIN - SERUM 7.4 g/dL (6.4-8.2); SODIUM 141 mmol/L (136-145); UREA NITROGEN 7 mg/dL (7-18); eGFR NON AFRICAN AMERICAN > 90 mL/min (90-120)
[2017-03-26 13:04] LABS: APPEARANCE HAZY (CLEAR); BACTERIA MODERATE /hpf (NONE SEEN); BILIRUBIN NEGATIVE (NEGATIVE); COLOR YELLOW (YELLOW); EPITHELIAL CELLS 0-5 /hpf (0-5); GLUCOSE NEGATIVE (NEGATIVE); HYALINE CAST OCC /lpf (NONE SEEN); KETONE NEGATIVE (NEGATIVE); LEUKOCYTE ESTERASE TRACE (NEGATIVE); MUCUS >1+ /lpf (NONE SEEN); NITRITE NEGATIVE (NEGATIVE); PROTEIN NEGATIVE (NEGATIVE); SPECIFIC GRAVITY 1.015 (1.005-1.020); WHITE CELLS - URINE 0-5 /hpf (0-5)
== END 2017-03-26 15:35 | disposition home or self-care (01) ==
LOC: D.ER 10:34
PROVIDERS: Emergency Medicine
DX: K52.9 Noninfective gastroenteritis and colitis, unspecified (principal)

== ENCOUNTER 2017-05-21 16:54 | Inpatient (IN) | payer MEDICARE ==
[~2017-05-21] VITALS: Ht 170.2 cm; Wt 86.4 kg
[2017-05-21 18:03] LABS: APPEARANCE CLEAR (CLEAR); COLOR STRAW (YELLOW)
[2017-05-21 18:04] LABS: BILIRUBIN NEGATIVE (NEGATIVE); GLUCOSE NEGATIVE (NEGATIVE); KETONE NEGATIVE (NEGATIVE); NITRITE NEGATIVE (NEGATIVE); PROTEIN NEGATIVE (NEGATIVE); UROBILINOGEN NORMAL (NORMAL)
[2017-05-21 18:11] LABS: BASOPHILS 0.1 % (0-2); EOSINOPHILS 1.9 % (0-7); HEMATOCRIT 41.5 % (36.0-48.0); HEMOGLOBIN 13.6 g/dL (12-16); IMMATURE GRANULOCYTES 0.2 % (0-5); LYMPHOCYTES 26.6 % (15-50); MCH 33.2 pg (26.0-34.0); MCHC 32.8 g/dL (31.0-37.0); MCV 101.2 fL (80.0-100.0); MEAN PLATELET VOLUME 9.8 fL (7.4-10.4); MONOCYTES 6.1 % (2-11); NEUTROPHILS 65.1 % (40-80); PLATELET COUNT 276 10x3/uL (130-400); RDW 16.2 % (11.5-14.5); WBC 11.7 10x3/uL (4.8-10.8)
[2017-05-21 18:22] LABS: ALKALINE PHOSPHATASE 133 U/L (46-116); ALT (SGPT) 18 U/L (10-68); AMYLASE - SERUM 119 U/L (25-115); BILIRUBIN - TOTAL 0.47 mg/dL (0.2-1.3); CALC OSMOLALITY 283 mosm/kg (275-300); CALCIUM 8.5 mg/dL (8.5-10.1); CARBON DIOXIDE 26.5 mmol/L (21.0-32.0); CHLORIDE - SERUM 103 mmol/L (98-107); CREATININE - SERUM 0.7 mg/dL (0.6-1.3); GLUCOSE 129 mg/dL (74-106); LIPASE 1182 U/L (73-393); PROTEIN - SERUM 6.6 g/dL (6.4-8.2); SODIUM 143 mmol/L (136-145); UREA NITROGEN 3 mg/dL (7-18); eGFR NON AFRICAN AMERICAN > 90 mL/min (90-120)
[2017-05-21 20:00] VITALS: BP 186/96
--- NOTE | 2017-05-21 20:20 | NUR ---
ARRIVED ON FLOOR VIA WC. ORIENTED TO ROOM AND CALL LIGHT. IV NS AT 125. DILAUDID MELTING OPERATOR TO BE INITITATED.
[2017-05-21 23:57] VITALS: BP 186/96; BMI 27.5
--- NOTE | 2017-05-21 23:57 | NUR ---
ASSESSMENT PER ADMIT PACKET PT HERE FOR PANCREATITIS/ABDOMINAL PAIN. SR UP X2 CALL LIGHT WITHIN REACH RESTING AT THIS TIME IV AND CLOSET ORGANIZER IN USE.
[2017-05-22] VITALS: BP 157/86
[2017-05-22] MEDS ORDERED: NYSTATIN1 PWD TOPICAL (01:10)
[2017-05-22] MEDS ORDERED: MUCINEX DM ER1 EAC1 PO (01:15)
--- NOTE | 2017-05-22 02:09 | NUR ---
GAVE BOLUS OF DILAUDID 0.4 VIA PROPERTY CLAIMS ADJUSTER PER PT REQUEST FOR SEVERE PAIN AT LEVEL 10/10. PROVIDED PT WITH ORAL CARE PRODUCTS AND WATER TO RINSE HER MOUTH. WILL CONTINUE TO MONITOR FOR NEEDS.
[2017-05-22 04:00] VITALS: BP 177/95
[2017-05-22 06:38] LABS: BASOPHILS 0.1 % (0-2); EOSINOPHILS 0.6 % (0-7); HEMATOCRIT 41.5 % (36.0-48.0); HEMOGLOBIN 13.2 g/dL (12-16); IMMATURE GRANULOCYTES 0.2 % (0-5); LYMPHOCYTES 16.4 % (15-50); MCH 32.4 pg (26.0-34.0); MCHC 31.8 g/dL (31.0-37.0); MEAN PLATELET VOLUME 10.1 fL (7.4-10.4); MONOCYTES 9.5 % (2-11); NEUTROPHILS 73.2 % (40-80); PLATELET COUNT 265 10x3/uL (130-400); RBC 4.07 10x6/uL (4.00-5.40); RDW 16.6 % (11.5-14.5); WBC 11.4 10x3/uL (4.8-10.8)
[2017-05-22 07:08] LABS: ALBUMIN 2.8 g/dL (3.4-5.0); ALKALINE PHOSPHATASE 128 U/L (46-116); ALT (SGPT) 17 U/L (10-68); CALC OSMOLALITY 274 mosm/kg (275-300); CALCIUM 8.2 mg/dL (8.5-10.1); CARBON DIOXIDE 27.2 mmol/L (21.0-32.0); CHLORIDE - SERUM 101 mmol/L (98-107); CREATININE - SERUM 0.6 mg/dL (0.6-1.3); GLUCOSE 91 mg/dL (74-106); PROTEIN - SERUM 6.2 g/dL (6.4-8.2); SODIUM 139 mmol/L (136-145); UREA NITROGEN 3 mg/dL (7-18); eGFR NON AFRICAN AMERICAN > 90 mL/min (90-120)
[2017-05-22 07:09] LABS: AMYLASE - SERUM 163 U/L (25-115); LIPASE 1709 U/L (73-393)
--- NOTE | 2017-05-22 08:05 | NUR ---
AWAKE AND ALERT. ORIENTED X3. LUNGS ARE CLEAR BILATERALLY, BUT DIMINISHED THROUGHOUT LUNG SANTANA. NON PRODUCTIVE COUGH NOTED. SKIN IS INTACT WITHOUT REDNESS. LEFT PORT PATENT WITHOUT REDNESS AT INSERTION SITE. DENIES NEEDS. REPORTS VERY LITLLE PAIN RELIEF WITH SUPERINTENDENT CEMETERY. WILL CONTINUE TO MONITOR.
[2017-05-22 08:48] VITALS: BP 193/107
--- NOTE | 2017-05-22 09:00 | NUR ---
BP IS STILL ELEVATED. CONTINUES WITH C/O PAIN LEVEL 10. LESLIE NOTIFIED OF SAME. AWAITING RESPONSE. WILL MONITOR.
--- NOTE | 2017-05-22 10:00 | NUR ---
CONTINUES WITH C/O OF UNCONTROLLED PAIN. GIVEN BOLUS ON GREEN PIPEFITTER. WILL CONTINUE TO MONITOR.
--- NOTE | 2017-05-22 11:15 | NUR ---
SPOKE WITH DR. DUGGAN. NEW ORDERS FOR TORADOL RECEIVED. GIVEN 30MG TORADOL SLOW IVP AND ONE MG DILAUDID SLOW IVP FOR SAME. PAIN LEVEL 10. WILL MONITOR.
--- NOTE | 2017-05-22 11:45 | NUR ---
REPORTS PAIN IMPROVED AT THIS TIME. WILL CONTINUE TO MONITOR.
[2017-05-22 12:38] VITALS: BMI 25.7
[2017-05-22 13:11] VITALS: BP 134/79
[2017-05-22 15:44] LABS: CHOL - HDL RATIO 1.3 ratio (2.3-4.1); LDL-HDL RATIO 0.2 ratio (1.5-3.5)
[2017-05-22 16:21] VITALS: BP 147/83
--- NOTE | 2017-05-22 16:36 | NUR ---
OFF UNIT VIA FOR CT.
--- NOTE | 2017-05-22 18:38 | NUR ---
STATED PAIN MUCH IMPROVED NOW. DENIES NEEDS. NO CHANGES NOTED
[2017-05-22 20:00] VITALS: BP 154/77
--- NOTE | 2017-05-22 22:11 | NUR ---
PT C/O NAUSEA ZOFRAN GIVEN.
--- NOTE | 2017-05-22 22:33 | NUR ---
ASSESSED, PT IS COUGHING UP PHLEGM AND C/O ABD PAIN. TORADOL 30 MG GIVEN THRU PORT. THE BED IS LOW, RAILS UP X'S 2 WITH THE CALL LIGHT AT HAND.
--- NOTE | 2017-05-22 23:36 | NUR ---
PT REST IN BED, EYE CLOSE, CALL CALL LIGHT IN REACH.
[2017-05-23] VITALS: BP 153/74
--- NOTE | 2017-05-23 01:31 | NUR ---
REST IN BED, EYE CLOSE, CALL LIGHT IN REACH.
--- NOTE | 2017-05-23 04:33 | NUR ---
PT C/O PAIN IN ABDOMINAL AREA, AT A LEVEL OF 7, PAIN MED GIVEN.
[2017-05-23 06:23] LABS: BASOPHILS 0 % (0-2); EOSINOPHILS 2.3 % (0-7); HEMATOCRIT 37.7 % (36.0-48.0); HEMOGLOBIN 12.1 g/dL (12-16); IMMATURE GRANULOCYTES 0.2 % (0-5); LYMPHOCYTES 10.6 % (15-50); MCH 32.9 pg (26.0-34.0); MCHC 32.1 g/dL (31.0-37.0); MCV 102.4 fL (80.0-100.0); MEAN PLATELET VOLUME 9.7 fL (7.4-10.4); MONOCYTES 6.8 % (2-11); NEUTROPHILS 80.1 % (40-80); RBC 3.68 10x6/uL (4.00-5.40); RDW 16.5 % (11.5-14.5); WBC 10.3 10x3/uL (4.8-10.8)
[2017-05-23 06:24] LABS: PLATELET COUNT 211 10x3/uL (130-400)
[2017-05-23 06:36] LABS: ALBUMIN 2.7 g/dL (3.4-5.0); ALKALINE PHOSPHATASE 122 U/L (46-116); ALT (SGPT) 14 U/L (10-68); BILIRUBIN - TOTAL 0.79 mg/dL (0.2-1.3); CALC OSMOLALITY 274 mosm/kg (275-300); CALCIUM 7.9 mg/dL (8.5-10.1); CARBON DIOXIDE 24.8 mmol/L (21.0-32.0); CHLORIDE - SERUM 102 mmol/L (98-107); CREATININE - SERUM 0.5 mg/dL (0.6-1.3); GLUCOSE 77 mg/dL (74-106); LIPASE 678 U/L (73-393); SODIUM 140 mmol/L (136-145); UREA NITROGEN 3 mg/dL (7-18); eGFR NON AFRICAN AMERICAN > 90 mL/min (90-120)
[2017-05-23 06:37] LABS: AMYLASE - SERUM 116 U/L (25-115); POTASSIUM - SERUM 2.7 mmol/L (3.5-5.1)
--- NOTE | 2017-05-23 09:00 | NUR ---
CRYING AND SHAKING WITH PAIN. REQUESTED AND GIVEN BOLUS ON HAND BANDER AND 30MG TORADOL SLOW IVP FOR SAME. WILL MONITOR.
--- NOTE | 2017-05-23 09:09 | NUR ---
AWAKE AND ALERT. ORIENTED X3. C/O INTENSE PAIN IN ABDOMEN THIS AM. GIVEN 0.4MG BOLUS ON ROLL UP HELPER AND 30MG TORADOL SLOW IVP FOR SAME WILL MONITOR. LUNGS ARE CLEAR BUT DIMINISHED THROUGHOUT, NO COUGH NOTED. SKIN IS INTAC TIWTHOUT REDNESS. PORT TO LEFT CHEST PATENT WITHOUT REDNESS AT INSERTION SITE. DEINES NEEDS.
[2017-05-23 09:38] VITALS: BP 113/62
[2017-05-23 09:43] VITALS: BP 152/86
--- NOTE | 2017-05-23 11:10 | NUR ---
REPORTS PAIN IMPROVED FOR NOW.
[2017-05-23 13:41] VITALS: BP 153/76
[2017-05-23 15:51] VITALS: BP 162/74
--- NOTE | 2017-05-23 18:32 | NUR ---
RESTING COMFORTABLE AT THIS TIME. REFUSED ENEMA AT THIS TIME. DENIES NEEDS. NO CHANGES NOTED.
[2017-05-23 20:00] VITALS: BP 153/93
[2017-05-24] VITALS: BP 194/102
--- NOTE | 2017-05-24 01:15 | NUR ---
RN NOTE: GAVE 10 MG HYDRALAZINE FOR ELEVATED BP PER PRN ORDER. WILL MONITOR FOR EFFECTIVENESS.
[2017-05-24 01:53] LABS: BASOPHILS 0.1 % (0-2); EOSINOPHILS 1.4 % (0-7); HEMATOCRIT 35.7 % (36.0-48.0); HEMOGLOBIN 11.6 g/dL (12-16); IMMATURE GRANULOCYTES 0.2 % (0-5); LYMPHOCYTES 8.9 % (15-50); MCH 33.2 pg (26.0-34.0); MCHC 32.5 g/dL (31.0-37.0); MCV 102.3 fL (80.0-100.0); MEAN PLATELET VOLUME 9.5 fL (7.4-10.4); MONOCYTES 4.7 % (2-11); NEUTROPHILS 84.7 % (40-80); PLATELET COUNT 202 10x3/uL (130-400); RBC 3.49 10x6/uL (4.00-5.40); RDW 16.4 % (11.5-14.5); WBC 9.9 10x3/uL (4.8-10.8)
[2017-05-24 02:11] LABS: ALBUMIN 2.4 g/dL (3.4-5.0); ALKALINE PHOSPHATASE 122 U/L (46-116); ALT (SGPT) 14 U/L (10-68); CALCIUM 8.1 mg/dL (8.5-10.1); CHLORIDE - SERUM 102 mmol/L (98-107); CREATININE - SERUM 0.5 mg/dL (0.6-1.3); LIPASE 242 U/L (73-393); POTASSIUM - SERUM 3.1 mmol/L (3.5-5.1); PROTEIN - SERUM 5.7 g/dL (6.4-8.2); SODIUM 138 mmol/L (136-145); eGFR NON AFRICAN AMERICAN > 90 mL/min (90-120)
[2017-05-24 02:13] LABS: AMYLASE - SERUM 59 U/L (25-115); CALC OSMOLALITY 269 mosm/kg (275-300); GLUCOSE 64 mg/dL (74-106); UREA NITROGEN 2 mg/dL (7-18)
--- NOTE | 2017-05-24 02:34 | NUR ---
FIRST KCl RIDER STARTED, IVF SWITCHED FROM NS TO LR. PATIENT HAS BEEN COMPLAINING OF INCREASED ABD PAIN. DR MORALES WOULDN'T INCREASE THE JEWELRY DEPARTMENT SUPERVISOR. AMYLASE AND LYPASE ARE NOW WNL, KCl WAS AT 3.1 WITH A DECREASED GLUCOSE LEVEL OF 64.
--- NOTE | 2017-05-24 03:41 | NUR ---
SECOND RIDER GIVEN, PAIN LEVEL AT 8. PATIENT STILL AMBULATES TO USE THE RESTROOM. URINE IS A LIGHT YELLOW, WITH AN OUTPUT OF ABOUT 350 PER VOID.
[2017-05-24 04:00] VITALS: BP 165/94
--- NOTE | 2017-05-24 07:30 | NUR ---
AWAKE AND ALERT. ORIENTED X3. C/O BACK, HAND AND ABDOMINAL PAIN THIS AM. LUNGS ARE CLEAR BIALTERALLY, NO COUGH NOTED. SKIN IS INTACT WITHOUT REDNESS. LEFT PORT IS PATENT WITHOUT REDNESS AT INSERTION SITE. DENIES NEEDS. REPORTS NO BM IN PM.
--- NOTE | 2017-05-24 08:00 | NUR ---
GIVEN 0.4 MG DILAUDID WITH 30MG TORADOL SLOW IVP FOR C/O ABDOMINAL PAIN AND HAND AND BACK LEVEL 10. WILL MONITOR.
[2017-05-24 08:20] VITALS: BP 194/102
--- NOTE | 2017-05-24 09:38 | NUR ---
BLOOD DRAWN AND SENT TO LAB FOR POTASSIUM REDRAW.
[2017-05-24 11:38] VITALS: BP 178/97
--- NOTE | 2017-05-24 12:30 | NUR ---
CLEAR LIQUID TRAY SERVED. ATE ALL OF FLUIDS. DENIES NEEDS.
[2017-05-24 15:04] VITALS: BP 187/98
--- NOTE | 2017-05-24 15:30 | NUR ---
REQUESTED AND GIVEN O.4MG BOLUS OF DILAUDID AND 30MG TORADOL SLOW IVP FOR C/O BACK AND ABDOMEN PAIN LEVEL 7. WILL MONITOR.
--- NOTE | 2017-05-24 17:38 | NUR ---
CLEAR LIQUID TRAY SERVED IN ROOM. SIPPING SLOWLY ON FLUIDS. DENIES NEEDS. NO CHANGES NOTED.
[2017-05-24 20:00] VITALS: BP 187/101
--- NOTE | 2017-05-24 23:12 | NUR ---
PATIENT REQUESTED RT FOR A C/O OF SOB.
--- NOTE | 2017-05-24 23:26 | NUR ---
RT PLACED PATIENT ON 6.5 OXIMIZER, SPO2 NOW AT 93% AND RISING
--- NOTE | 2017-05-25 00:50 | NUR ---
RETAIL SALES ASSISTANT WAS CALLED FOR PATIENT REQUIRING O2 @8lpm, INCRESED DYSPNEA, INSIRATORY/EXPIRATORY WHEEZES.
--- NOTE | 2017-05-25 00:55 | NUR ---
LR DROPPED FROM 125mL/HR TO 50mL/HR
--- NOTE | 2017-05-25 01:12 | NUR ---
RAPID RESPONSE WAS CALLED, ABG WAS DRAWN, O2 INCREASED TO 15LPM, CXR DONE.
--- NOTE | 2017-05-25 02:53 | NUR ---
O2 DROPPED FROM 15LPM TO 13LPM
[2017-05-25 04:24] LABS: BASOPHILS 0.1 % (0-2); EOSINOPHILS 0.2 % (0-7); HEMATOCRIT 40.5 % (36.0-48.0); IMMATURE GRANULOCYTES 0.3 % (0-5); LYMPHOCYTES 6.8 % (15-50); MCHC 32.1 g/dL (31.0-37.0); MCV 102.8 fL (80.0-100.0); MEAN PLATELET VOLUME 9.9 fL (7.4-10.4); MONOCYTES 3.9 % (2-11); NEUTROPHILS 88.7 % (40-80); RBC 3.94 10x6/uL (4.00-5.40); RDW 16.4 % (11.5-14.5); WBC 12.3 10x3/uL (4.8-10.8)
[2017-05-25 04:26] LABS: PLATELET COUNT 258 10x3/uL (130-400)
[2017-05-25 04:56] LABS: ALBUMIN 2.3 g/dL (3.4-5.0); ALKALINE PHOSPHATASE 141 U/L (46-116); ALT (SGPT) 17 U/L (10-68); AMYLASE - SERUM 53 U/L (25-115); BILIRUBIN - TOTAL 1.09 mg/dL (0.2-1.3); CALCIUM 8.5 mg/dL (8.5-10.1); CARBON DIOXIDE 29.1 mmol/L (21.0-32.0); CHLORIDE - SERUM 98 mmol/L (98-107); CREATININE - SERUM 0.6 mg/dL (0.6-1.3); LIPASE 159 U/L (73-393); POTASSIUM - SERUM 3.8 mmol/L (3.5-5.1); PROTEIN - SERUM 6.2 g/dL (6.4-8.2); SODIUM 136 mmol/L (136-145); UREA NITROGEN 2 mg/dL (7-18); eGFR NON AFRICAN AMERICAN > 90 mL/min (90-120)
[2017-05-25 04:57] LABS: CALC OSMOLALITY 269 mosm/kg (275-300); GLUCOSE 133 mg/dL (74-106)
--- NOTE | 2017-05-25 07:10 | NUR ---
REPORT RECEIVED FROM SENIOR SPECIALIST NURSE. CALL LIGHT IN REACH.
--- NOTE | 2017-05-25 08:00 | NUR ---
ASSESSMENT COMPLETED. REFUSES SCDs. CALL LIGHT IN REACH. WILL CONTINUE WITH PLAN OF CARE.
--- NOTE | 2017-05-25 08:00 | NUR ---
ASSESSMENT COMPLETED. CALL LIGHT IN REACH. PREDICTIVE MAINTENANCE TECHNICIAN IN USE FOR PAIN CONTROL. CALL LIGHT IN REACH. WILL CONTINUE WITH PLAN OF CARE.
[2017-05-25 08:10] VITALS: BP 136/83
--- NOTE | 2017-05-25 09:10 | NUR ---
DEA PO WITH AM MEDS ADMINISTERED. CALL LIGHT IN REACH.
--- NOTE | 2017-05-25 09:15 | NUR ---
TORADOL IVP WITH AM MEDS FOR BREAKTHROUGH PAIN. ALMOST GAVE PATIENT A NORCO BECAUSE ORDER WAS PUT IN ON WRONG PATIENT BUT WAS ABLE TO RETRIEVE IT BEFORE SHE TOOK IT. EXPLAINED TO PATIENT WHAT I DID AND SHE VERBALIZED UNDERSTANDING. WASTED PILL WITH MICHAEL MIXON.
--- NOTE | 2017-05-25 09:29 | NUR ---
ASSESSMENT COMPLETED. REFUSES SCDs. CALL LIGHT IN REACH. WILL CONTINUE WITH PLAN OF CARE.
--- NOTE | 2017-05-25 11:05 | NUR ---
SPOKE WITH DR. RÍOS ABOUT CONSULT. NEW ORDER RECEIVED AT THIS TIME. CALL LIGHT IN REACH.
[2017-05-25 11:34] VITALS: BP 118/71
--- NOTE | 2017-05-25 12:30 | NUR ---
PANCREAS PILLS PO. DILAUDID 0.4 MG IV BOLUS. CALL LIGHT IN REACH.
--- NOTE | 2017-05-25 14:22 | NUR ---
GABAPENTIN PO. CALL LIGHT IN REACH.
--- NOTE | 2017-05-25 15:10 | NUR ---
IV TORADOL ADMINISTERED PER PATIENT REQUEST FOR BREAKTHROUGH PAIN. CALL LIGHT IN REACH.
[2017-05-25 15:30] VITALS: BP 128/78
--- NOTE | 2017-05-25 15:31 | NUR ---
ALL IV TUBING CHANGED PER HOSPITAL POLICY.
--- NOTE | 2017-05-25 17:22 | NUR ---
SALINE NASAL SPRAY AND PANCREAS PILLS PO. CALL LIGHT IN REACH.
--- NOTE | 2017-05-25 17:25 | NUR ---
PT SITTING UP IN BED, FAMILY AT BEDSIDE. NO COMPLAINTS AT THIS TIME. BED IN LOWEST POSITION, SIDE RAILS UP X 2, CALL LIGHT WITHIN REACH.
--- NOTE | 2017-05-25 18:12 | NUR ---
0.4MG IV BOLUS ADMINISTERED. NO CHANGES IN INITIAL ASSESSMENT. STILL REFUSES SCDs. CALL LIGHT IN REACH. WILL CONTINUE WITH PLAN OF CARE.
--- NOTE | 2017-05-25 20:00 | NUR ---
ASSESSMENT PER FLOWSHEET. BILATER EXSPIRATORY WHEEZES NOTED O2 ON 11L PER OXYMIZER. HOB UP 40 DEGREES. IV PATENT LEFT INFUSAPORT OF LR AT 30CC'S/HR SITE CLEAR TOOL DESIGN DRAFTER OF DILAUDID IN USE WITH SETTINGS AT 0.2MG Q10MIN W/4MG Q4H L/O. ZOFRAN GTT AT 4.7 CC'S/HR. TELM. SHOWS SR WITH HR 95.PT REFUSES SCD'S.
--- NOTE | 2017-05-25 20:43 | NUR ---
REQUESTING TORADOL FOR BREAKTHROUGH PAIN. TORADOL 30MG IVP GIVEN FOR PAIN CONTROL.RATES PAIN LEVEL #8-9. IN HER ABDOMEN
--- NOTE | 2017-05-25 21:00 | NUR ---
REGULAR MEDS GIVEN PER MAR.
--- NOTE | 2017-05-25 22:04 | NUR ---
BOLUS OF 0.4MG PER TIMBER SIZER OPERATOR FOR BREAK THROUGH PAIN IN ABDOMEN.
--- NOTE | 2017-05-25 23:00 | NUR ---
RESTING QUIETLY RESPIRATIONS WITH EASE AND UNLABORED.
[2017-05-25 23:01] VITALS: BP 126/77
--- NOTE | 2017-05-26 00:35 | NUR ---
PT REQUESTING ANOTHER DRY CLEANER APPRENTICE BOLUS FOR PAIN CONTROL. DILAUDID 0.4MG IV PER DRY CLEANER APPRENTICE PUMP GIVEN A BOLUS FOR BREAKTHROUGH PAIN.
[2017-05-26 05:22] VITALS: BP 145/82
[2017-05-26 06:04] LABS: BASOPHILS 0.1 % (0-2); EOSINOPHILS 0 % (0-7); HEMATOCRIT 38.3 % (36.0-48.0); HEMOGLOBIN 12.2 g/dL (12-16); IMMATURE GRANULOCYTES 0.3 % (0-5); LYMPHOCYTES 6.2 % (15-50); MCH 32.7 pg (26.0-34.0); MCHC 31.9 g/dL (31.0-37.0); MCV 102.7 fL (80.0-100.0); MEAN PLATELET VOLUME 10.2 fL (7.4-10.4); MONOCYTES 2.4 % (2-11); PLATELET COUNT 269 10x3/uL (130-400); RBC 3.73 10x6/uL (4.00-5.40); WBC 10.3 10x3/uL (4.8-10.8)
[2017-05-26 06:37] LABS: ALBUMIN 2.2 g/dL (3.4-5.0); ALKALINE PHOSPHATASE 130 U/L (46-116); ALT (SGPT) 18 U/L (10-68); AMYLASE - SERUM 44 U/L (25-115); CALC OSMOLALITY 267 mosm/kg (275-300); CALCIUM 8.3 mg/dL (8.5-10.1); CARBON DIOXIDE 28.4 mmol/L (21.0-32.0); CHLORIDE - SERUM 97 mmol/L (98-107); CREATININE - SERUM 0.7 mg/dL (0.6-1.3); GLUCOSE 142 mg/dL (74-106); LIPASE 71 U/L (73-393); PHOSPHOROUS 3.9 mg/dL (2.5-4.9); POTASSIUM - SERUM 3.9 mmol/L (3.5-5.1); PROTEIN - SERUM 5.9 g/dL (6.4-8.2); SODIUM 134 mmol/L (136-145); TROPONIN-I 0.016 ng/mL (0.000-0.060); eGFR NON AFRICAN AMERICAN > 90 mL/min (90-120)
--- NOTE | 2017-05-26 06:38 | NUR ---
RESTING QUIETLY MEDS GIVEN PER SEP.
[2017-05-26 06:49] LABS: MAGNESIUM - SERUM 1.1 mg/dL (1.8-2.4); UREA NITROGEN 6 mg/dL (7-18)
--- NOTE | 2017-05-26 07:45 | NUR ---
REPORT RECEIVED. RR EVEN, 15L O2 BEING DELIEVERED TO PT VIA OXIMIZER. PT REQUESTED BUSINESS ANALYST CONSULTANT BOLUS DOSE, GIVEN. PT DENIES OTHER NEEDS AT THIS TIME. PT IS ALERT AND ORIENTED. WILL CTM.
[2017-05-26 08:13] VITALS: BP 140/79
--- NOTE | 2017-05-26 11:00 | NUR ---
PT REPORTS FEELING SHORT OF BREATH. RESPIRATIONS HAVE INCREASED AND ARE LABORED. PAGED RESPIRATORY ABOUT PT CONDTION. WILL AWAIT CALL BACK. O2 SAT IS 94 PERCENT ON 15L OXIMIZER.
--- NOTE | 2017-05-26 11:09 | NUR ---
Patient Name: NINA ODELL Admission Status: ER Accout number: [id number] Admission Date: 05-21-2017 : 1970 Admission Diagnosis:ACUTE PANCREATITIS WITHOUT NECROSIS OR INFECTION, UNSP Attending: DARYA DUGGAN Current LOS: 5 Anticipated DC Date: Planned Disposition: Home with Home Health Primary Insurance: MEDICARE A & B Discharge Planning Comments: CM met with patient to assess discharge planning needs. Patient stated that she is independent with her care at home and she plans to return there, her son Ifeanyi will be the one to drive her home at discharge. She has no steps to enter in her home. She is current with [facility]. She has portable o2 from [facility], nebulizer, shower chair, walker, and home o2. CM will continue to follow and assist with discharge planning needs. PCP: Albaro Howell [phone] Science Tutor: Linda Lund * Is the patient Alert and Oriented? Yes 0 * How many steps to enter\exit or inside your home? 0 0 * PCP ALBARO 0 * Pharmacy [facility] [phone] * Preadmission Environment Home with Family 0 * ADLs Independent 0 * Equipment Nebulizer Oxygen Rolling Walker Shower Chair 0 * List name and contact numbers for known caregivers / representatives who currently or will assist patient after discharge: IFEANYI HOWELL (SON) 0 * Community resources currently utilized Home Health 0 * Please name any agencies selected above. [facility] 0 * Can the patient safely return to the preadmission environment? Yes 0 * Has this patient been hospitalized within the prior 30 days at any hospital? No 0 Grand Total: 0
--- NOTE | 2017-05-26 11:15 | NUR ---
SPOKE TO RT ABOUT PT CONDTION. REPORTED THAT SHE WILL GO ASSESS PT. WILL CTM.
--- NOTE | 2017-05-26 11:30 | NUR ---
PTS O2 SAT IS NOW 100 PERCENT. REQUESTED BOLUS DOSE HOME HEALTH REGISTERED NURSE. GIVEN, WILL CTM.
--- NOTE | 2017-05-26 12:00 | NUR ---
PT IS RESTING QUIETLY, RR EVEN AND UNLABORED. DENIES NEEDS AT THIS TIME, WILL CTM.
[2017-05-26 12:08] VITALS: BP 110/75
--- NOTE | 2017-05-26 13:27 | NUR ---
NUTRITION F/U CHART REVIEWED. PT REMAINS ON CLEAR LIQUID DIET. NOTE AMYLASE AND LIPASE WNL. RECOMMEND ADVANCING DIET WHEN MEDICALLY FEASIBLE. RD FOLLOWING
--- NOTE | 2017-05-26 15:43 | NUR ---
OT NOTE: PROVIDED HOME EX PROGRAM FOR PT TO PERFORM 2-3 TIMES DAILY. JAN PINEDA, OTR/L
[2017-05-26 16:03] VITALS: BP 155/95
--- NOTE | 2017-05-26 17:53 | NUR ---
OT NOTE: PT COMPLETED DYNAMIC STANDING BALANCE WITH I. PT COMPLETED SITTING BALANCE WITH I. THANK YOU, RANJANA MATTHEWS/Fransisca
--- NOTE | 2017-05-26 18:35 | NUR ---
PT RESTING QUIETLY, RR EVEN AND UNLABORED. PT DENIES NEEDS AT THIS TIME. WILL GIVE REPORT ON PT CONDTION FOR THE DAY.
[2017-05-26 19:30] VITALS: BP 138/80
--- NOTE | 2017-05-26 20:00 | NUR ---
ASSESSMENT PER FLOWSHEET. IV PATENT LEFT INFUSAPORT IF ZOFRAN GTT AT 4.7CC'S/HR AND LR AT 30CC'S/HR TAR PROCESSING TECHNICIAN OF DILAUDID IN USE WITH SETTINGS AT 0.2MG Q10MIN W/4MG Q4H L/O.
--- NOTE | 2017-05-26 22:10 | NUR ---
REQUESTING BREAKTHROUGH MEDS. BOLUS OF 0.4MG PER EDI ANALYST GIVEN AND TORADOL 30MG IVP GIVEN FOR BREAKTHROUGH PAIN.
[2017-05-27] VITALS (13 sets, daily range): BP systolic 103–162; BP diastolic 43–114
--- NOTE | 2017-05-27 | NUR ---
EYES CLOSED RESPIRATIONS WITH EASE AND UNLABORED.
--- NOTE | 2017-05-27 03:00 | NUR ---
O2 SAT =95% O2 PER OXYMIZER DECREASED FROM 15 L/M TO 10 L PER MD ORDERS.
--- NOTE | 2017-05-27 04:30 | NUR ---
O2 SAT=94% ON 10 L/M O2 OXIMYZER.
--- NOTE | 2017-05-27 05:18 | NUR ---
PT AWAKE REUESTING MEDS FOR BREATHROUGH PAIN. TORADOL 30MG IVP GIVEN FOR PAIN AND BOLUS OF 0.4MG GIVEN PER RESIDENTIAL TECH PUMP.
[2017-05-27 05:33] LABS: BASOPHILS 0 % (0-2); EOSINOPHILS 0 % (0-7); HEMATOCRIT 33.6 % (36.0-48.0); HEMOGLOBIN 10.7 g/dL (12-16); IMMATURE GRANULOCYTES 0.3 % (0-5); LYMPHOCYTES 6.4 % (15-50); MCH 32.3 pg (26.0-34.0); MCHC 31.8 g/dL (31.0-37.0); MCV 101.5 fL (80.0-100.0); MEAN PLATELET VOLUME 10.1 fL (7.4-10.4); MONOCYTES 5.3 % (2-11); PLATELET COUNT 280 10x3/uL (130-400); RBC 3.31 10x6/uL (4.00-5.40); RDW 15.9 % (11.5-14.5); WBC 12.8 10x3/uL (4.8-10.8)
[2017-05-27 05:54] LABS: ALBUMIN 1.9 g/dL (3.4-5.0); ALKALINE PHOSPHATASE 118 U/L (46-116); ALT (SGPT) 15 U/L (10-68); AMYLASE - SERUM 39 U/L (25-115); CALCIUM 8.3 mg/dL (8.5-10.1); CHLORIDE - SERUM 98 mmol/L (98-107); CREATININE - SERUM 0.8 mg/dL (0.6-1.3); LIPASE 56 U/L (73-393); POTASSIUM - SERUM 4.3 mmol/L (3.5-5.1); PROTEIN - SERUM 4.9 g/dL (6.4-8.2); SODIUM 135 mmol/L (136-145); eGFR NON AFRICAN AMERICAN 81 mL/min (90-120)
[2017-05-27 05:55] LABS: CALC OSMOLALITY 273 mosm/kg (275-300); GLUCOSE 193 mg/dL (74-106); UREA NITROGEN 11 mg/dL (7-18)
--- NOTE | 2017-05-27 06:25 | NUR ---
NO CHANGES IN ASSESSMENT.
--- NOTE | 2017-05-27 07:16 | NUR ---
REPORT RECEIVED FROM WELDER FITTER HELPER NURSE. CALL LIGHT IN REACH.
--- NOTE | 2017-05-27 08:10 | NUR ---
ASSESSMENT COMPLETE. L PORT PATENT. LR INFUSING AT 30 CC/HR AND ZOFRAN INFUSING AT 4.7 CC/HR VIA PUMP. CHARHOUSE WORKER DILAUDID 0.2-10-4 IN USE FOR PAIN CONTROL. BRUISING NOTED TO ABDOMEN. SNUFF DRIER SHOWING SR 79 PER TECH. O2 13L IN USE PER OXIMIZER. SOB ON EXERTION.
--- NOTE | 2017-05-27 12:00 | NUR ---
REFUSING TO EAT LUNCH. STATES SHE DOESN'T FEEL GOOD OR LIKE EATING.
--- NOTE | 2017-05-27 13:13 | NUR ---
VANCOMYCIN TROUGH 15.7. CONTINUE CURRENT DOSING.
--- NOTE | 2017-05-27 15:30 | NUR ---
COMPLAINING OF TIGHTNESS AND PAIN TO RIGHT ARM AND SHORTNESS OF BREATH. LESLIE LOBATO APN NOTIFIED.
--- NOTE | 2017-05-27 15:35 | NUR ---
DR RÍOS AND DR MATHEWS BY TO ASSESS PATIENT. NEW ORDERS RECIEVED. BIPAP IN USE. RESPIRATIONS 30-50'S. ENCOURAGED TO TRY TO SLOW BREATHING DOWN IF POSSIBLE. VOICED UNDERSTANDING.
--- NOTE | 2017-05-27 18:00 | NUR ---
NO CHANGES NOTED AT THIS TIME. RESPIRATIONS CONTINUE TO BE 40-50'S AND SHALLOW. BIPAP CONTINUES IN USE.
--- NOTE | 2017-05-27 20:00 | NUR ---
PT ARRIVES TO ICU. ASSESSMENT COMPLETE. SINUS TACHYCARDIA SHOWING ON MONITOR. RR SHALLOW; DYSPNEA NOTED; SOB; TACHYPNEA. RADIAL AND PEDAL PULSES PALPATED. SWELLING AND TENDERNESS NOTED TO RIGHT WRIST/HAND. PT ON BIPAP @ 100%. WHEEZE ON NOTED THROUGHOUT ALL LOBES; DIMINISHED BILATERALLY IN LOWER LOBES. AAO. PERRLA. JUAREZ CATH PLACED. PT MAKES CHANGES IN POSITION INDEPENDENTLY. CLEAR COMMUNICATION; HAS DIFFICULTY FINISHING SENTENCES DUE TO BEING SOB.
--- NOTE | 2017-05-27 20:50 | NUR ---
SPOKE WITH DR RÍOS. UPDATE ON PT GIVEN. PT STATED HAVING INCREASE IN ANXIETY. ORDERS RECEIVED.
--- NOTE | 2017-05-27 21:00 | NUR ---
FAMILY AT BEDSIDE. UPDATE GIVEN. QUESTIONS ANSWERED.
--- NOTE | 2017-05-27 23:10 | NUR ---
REASSESSMENT COMPLETE. BIPAP TO 50%. DECREASE IN RR; REMAINS WITH TACHYPNEA NOTED. WILL CONTINUE TO MONITOR.
[2017-05-28] VITALS (24 sets, daily range): BP systolic 109–175; BP diastolic 57–98
--- NOTE | 2017-05-28 01:23 | NUR ---
PT AWAKE; ALERT. C/O ANXIETY. RESTLESS. TACHYPNEA NOTED.
--- NOTE | 2017-05-28 03:15 | NUR ---
REASSESSMENT COMPLETE. NO ACUTE CHANGES FROM PREVIOUS ASSESSMENT. TACHYPNEA NOTED.
[2017-05-28 05:01] LABS: BASOPHILS 0.1 % (0-2); EOSINOPHILS 0 % (0-7); HEMATOCRIT 31.7 % (36.0-48.0); HEMOGLOBIN 10.4 g/dL (12-16); IMMATURE GRANULOCYTES 0.4 % (0-5); LYMPHOCYTES 4.8 % (15-50); MCH 32.8 pg (26.0-34.0); MCHC 32.8 g/dL (31.0-37.0); MEAN PLATELET VOLUME 10.1 fL (7.4-10.4); MONOCYTES 5.5 % (2-11); NEUTROPHILS 89.2 % (40-80); PLATELET COUNT 331 10x3/uL (130-400); RBC 3.17 10x6/uL (4.00-5.40); RDW 15.9 % (11.5-14.5); WBC 13.7 10x3/uL (4.8-10.8)
[2017-05-28 05:23] LABS: ALBUMIN 1.8 g/dL (3.4-5.0); BILIRUBIN - TOTAL 0.4 mg/dL (0.2-1.3); CALCIUM 8.3 mg/dL (8.5-10.1); CARBON DIOXIDE 30.2 mmol/L (21.0-32.0); CREATININE - SERUM 0.9 mg/dL (0.6-1.3); PROTEIN - SERUM 5.5 g/dL (6.4-8.2)
[2017-05-28 05:28] LABS: ANION GAP 12.4 mmol/L (8-16); POTASSIUM - SERUM 3.6 mmol/L (3.5-5.1)
--- NOTE | 2017-05-28 07:15 | NUR ---
PT ALERT AND ORIENTED, ON BIPAP 50%, PAIN MANAGED WITH KILN TRANSFER OPERATOR, RR IN 50S, L INFUSAPORT IN PLACE, LR AT 30ML/HR ZOFRAN 4.7ML/HR, DENIES ALL NEEDS, REPOSITIONS SELF, WILL CONTINUE TO MONITOR
--- NOTE | 2017-05-28 09:00 | NUR ---
PT REPOSITIONS SELF, PRN ATIVAN FOR ANXIETY, RR IN 70S, SPO2 STABLE 98%, DENIES ALL NEEDS, WILL CONTINUE TO MONITOR
--- NOTE | 2017-05-28 10:53 | NUR ---
PT CONTINUES ON BIPAP WITH RR IN 40S, UNABLE TO KEEP SPO2 ABOVE 90 WHEN BIPAP IS REMOVED FOR DRINK OF WATER OR ANY OTHER REASON, DENIES ALL NEEDS AT THIS TIME, REPOSITIONS SELF, CALL LIGHT WITHIN REACH
--- NOTE | 2017-05-28 12:36 | NUR ---
SPOKE WITH DR PEDERSON ABOUT PT RR CONSISTENTLY IN 40S-70S, PT ATTEMPTING TO PULL OFF BIPAP, REORIENTED
--- NOTE | 2017-05-28 15:18 | NUR ---
PT ON VAPOTHERM PER RT, VSS, SPO2 IN 90S, DENIES ALL NEEDS, WIRELESS WATCHER AND CALL LIGHT WITHIN REACH
--- NOTE | 2017-05-28 17:25 | NUR ---
PT TOOK MEDS WELL, TOLERATING VAPOTHERM WELL, VSS, DENIES ALL NEEDS, WILL CONTINUE TO MONITOR
--- NOTE | 2017-05-28 19:00 | NUR ---
REPORT RECEIVED. SHIFT ASSESSMENT COMPLETED PER FLOW SHEET. PT SEDATED ON VENT, AROUSES TO DEEP STIMULI. PUPILS 2 MM BRISK REACTION. VITAL 1.0 TUBE FEEDINGS INFUSING VIA NGT AT 30 MLS/HR, 0 RESIDUAL OBTAINED, RATE INCREASED TO 40 MLS/HR PER DOCTOR'S ORDERS. NGT VERIFIED VIA AUSCULTATION. TELEMETRY MONITORING HR 83. RADIAL AND PEDAL PULSES PALP. BS HYPOACTIVE X4. JUAREZ CATHETER TO GRAVITY, SECURED, DRAINING CONCENTRATED, DAI URINE. MID ABDOMENAL INCISION NOTED, MARYANNE INTACT. COLOSTOMY TO LT ABDOMEN, BROWN STOOL NOTED. RONAL DRAINS TO LT AND RT ABDOMEN. SCD'S ON. LT SUBCLAVIAN CVL, DRESSING CDI. SEE FLOW SHEET FOR COMPLETE ASSESSMENT. BED IN LOWEST POSITION. WILL CONTINUE TO MONITOR.
--- NOTE | 2017-05-28 19:30 | NUR ---
REPORT RECEIVED. SHIFT ASSESSMENT COMPLETED PER FLOW SHEET. PT LAYING IN BED RESTING. ALERT AND ORIENTEDX4. TEACHING PROVIDED ON USE OF SECONDARY SCHOOL TEACHER PUMP, VERBALIZED UNDERSTANDING. PT ON VAPOTHERM AT 30 LPM 60% 02. TELEMETRY MONITORING HR 98. RADIAL AND PEDAL PULSES PALP. CAPILLARY REFILL <3 SECONDS. FOLLOWS COMMANDS AND ABLE TO MOVE UPPER AND L0WER EXTREMITIES. TEMP 100.3, COVERS REMOVED, ROOM AIR DECREASED, WILL CONTINUE TO MONITOR. JUAREZ CATHETER TO GRAVITY SECURED, DRAINING CLEAR YELLOW URINE. PT GETS TACHYPNEIC, TEACHING PROVIDED ON TAKING SLOW DEEP BREATHS, VERBALIZED UNDERSTANDING. DENIES NEEDS. CALL LIGHT AND SECONDARY SCHOOL TEACHER BUTTON WITHIN REACH. SEE FLOW SHEET FOR COMPLETED ASSESSMENT. WILL CONTINUE TO MONITOR.
--- NOTE | 2017-05-28 20:16 | NUR ---
PT LAYING IN BED RESTING, MEDS ADMINISTERED PER EMAR, SEE FOR DETAILS. PT TOLERATE WELL. WATER PROVIDED. DENIES FURTHER NEEDS. WILL CONTINUE TO MONITOR. CALL LIGHT WITHIN REACH.
--- NOTE | 2017-05-28 22:00 | NUR ---
SBP >170 PRN HYDRALAZINE GIVEN. WILL CONTINUE TO MONITOR.
--- NOTE | 2017-05-28 23:00 | NUR ---
REASSESSMENT COMPLETED PER FLOW SHEET. PT LAYING IN BED RESTING, EYES CLOSED. AROUSES TO VOICE. DENIES NEEDS. NO ACUTE CHANGES NOTED FROM PREVIOUS ASSESSMENT, SEE FLOW SHEET FOR DETAILS. CALL LIGHT WITHIN REACH. SBP TRENDING DOWN. TEMPERATURE NOW 99.1. WILL CONTINUE TO MONITOR.
[2017-05-29] VITALS (25 sets, daily range): BP systolic 95–165; BP diastolic 54–98
--- NOTE | 2017-05-29 01:00 | NUR ---
PT LAYING IN BED RESTING. DENIES NEEDS. CALL LIGHT WITHIN REACH. WILL CONTINUE TO MONITOR.
--- NOTE | 2017-05-29 03:05 | NUR ---
REASSESSMENT COMPLETED PER FLOW SHEET, SEE FOR DETAILS. PT LAYING IN BED RESTING, SEE FLOW SHEET FOR COMPLETE ASSESSMENT. DENIES NEEDS. WILL CONTINUE TO MONITOR. CALL LIGHT WITHIN REACH. BED IN LOWEST POSITION.
--- NOTE | 2017-05-29 03:06 | NUR ---
02 SATURATION DROPPING TO 70-80'S. RESPIRATORY THERAPIST CALLED. PT REPOSITIONED UP, ENCORAGED TO TAKE DEEP BREATHS, PT VERBALIZED UNDERSTANDING. RESPIRATORY NOW IN ROOM AND VAPOTHERM O2 INCREASED TO 100%. O2 SATURATION BACK TO 98% RESPIRATORY TREATMENT ADMINISTERED PER RESPIRATORY PERSONNEL. WILL CONTINUE TO MONITOR.
[2017-05-29 04:59] LABS: BASOPHILS 0.1 % (0-2); EOSINOPHILS 0 % (0-7); HEMATOCRIT 33.4 % (36.0-48.0); IMMATURE GRANULOCYTES 1.2 % (0-5); LYMPHOCYTES 7.8 % (15-50); MCH 32.4 pg (26.0-34.0); MCHC 32.9 g/dL (31.0-37.0); MCV 98.5 fL (80.0-100.0); MEAN PLATELET VOLUME 9.7 fL (7.4-10.4); MONOCYTES 6.4 % (2-11); NEUTROPHILS 84.5 % (40-80); PLATELET COUNT 361 10x3/uL (130-400); RBC 3.39 10x6/uL (4.00-5.40); RDW 15.9 % (11.5-14.5); WBC 13.3 10x3/uL (4.8-10.8)
--- NOTE | 2017-05-29 05:00 | NUR ---
LAYING IN BED RESTING. WATER PROVIDED PER REQUEST. WILL CONTINUE TO MONITOR.
[2017-05-29 05:19] LABS: ALBUMIN 1.9 g/dL (3.4-5.0); ANION GAP 8.4 mmol/L (8-16); BILIRUBIN - TOTAL 0.5 mg/dL (0.2-1.3); CALCIUM 8.8 mg/dL (8.5-10.1); CARBON DIOXIDE 37.7 mmol/L (21.0-32.0); CREATININE - SERUM 0.9 mg/dL (0.6-1.3); POTASSIUM - SERUM 3.1 mmol/L (3.5-5.1); PROTEIN - SERUM 5.9 g/dL (6.4-8.2)
--- NOTE | 2017-05-29 07:00 | NUR ---
RE'D REPORT AND RESUMED CARE, SLEEPING, AROUSABLE TO VERBAL STIMULI, VSS, O2 VIA VAPOTHERM AT 70% FIO2, LEFT UPPER CHEST INFUSAPORT WITH IVF PER IV FLOWSHEET, JUAREZ TO GRAVITY WITH CLEAR YELLOW DRAINAGE TO BAG, DENIES PAIN, DILAUDID SLD EDUCATIONAL AIDE IN USE, ASSESSMENT COMPLETE PER FLOWSHEET, REPOSITIONED UP AND TO BACK WITH HEELS FLOATED, CALL LIGHT IN REACH, NO NEEDS AT THIS TIME
--- NOTE | 2017-05-29 08:00 | NUR ---
CLEAR LIQUID BREAKFAST TRAY TO BEDSIDE, HELP WITH SET UP, INDEPENDENT WITH EATING,
--- NOTE | 2017-05-29 10:05 | NUR ---
AM MEDS GIVEN WITHOUT DIFFICULTY
--- NOTE | 2017-05-29 10:11 | NUR ---
NUTRITION F/U PT NOW IN ICU, REMAINS ON CLEAR LIQUID DIET. SPOKE WITH DR. MAY, OK'D CHANGE TO FULL LIQUID DIET WITH ENSURE. RD FOLLOWING
--- NOTE | 2017-05-29 11:00 | NUR ---
RESTING WITH NO SIGN OF DISTRESS, O2 SAT IN 70'S O2 TITRATED TO 75% FIO2, DISCUSSED, TAKING DEEP BREATHS, RETRUNS DEMONSTRATION, SAT 88%
[2017-05-29 11:01] LABS: AMYLASE - SERUM 28 U/L (25-115); LIPASE 49 U/L (73-393)
--- NOTE | 2017-05-29 11:45 | NUR ---
CLEAR LIQUID LUNCH TRAY TO BEDSIDE, ASSIST WITH SET UP, INDEPENDENT WITH EATING
--- NOTE | 2017-05-29 12:00 | NUR ---
NO VISITORS AT THIS TIME
--- NOTE | 2017-05-29 16:00 | NUR ---
I AND O'S COMPLETED, DAUGHTER AT BEDSIDE, INQUIRED RE: BRINGING PATIENTS GRAND CHILDREN, AGES 9 AND 5, EDUCATED RE: AGE LIMIT AND EXPOSURE TO DIFFERENT BACTERIA, STATES SHE UNDERSTANDS
--- NOTE | 2017-05-29 17:00 | NUR ---
DINNER TRAY TO BEDSIDE, REPOSITIONED HOB UP AT 45 DEGREES, ASSIST WITH MEAL SET UP INDEPENDENT WITH EATING
--- NOTE | 2017-05-29 17:48 | NUR ---
O2 ALARMING, 85%, STOPPED EATING TO CONTROL BREATHING MORE, SAT BACK UP TO 89%, WILL CONTINUE TO MONITOR
--- NOTE | 2017-05-29 19:40 | NUR ---
PT AOX4, DENIES PAIN AT THIS TIME. RESPIRATIONS FAST AND SHALLOW, EXP WHEEZES HEARD IN B/L UPPER LOBES, DIMINISHED IN LOWER. VAPOTHERM ON 55% SPO2 92. S1S2 HEARD, PERIPHERAL PULSES PRESENT, NSR ON MONITOR. BOWEL SOUNDS ACTIVE IN ALL QUADRANTS. JUAREZ CATH INTACT. GENERALIZED WEAKNESS PRESENT, PT TIRES EASILY ON EXERTION. PT REPOSITONED FOR COMFORT. DENIES NEEDS. CALL LIGHT AND BEDSIDE TABLE WITHIN PT REACH. CPOC.
--- NOTE | 2017-05-29 20:15 | NUR ---
NO VISITORS AT THIS TIME.
--- NOTE | 2017-05-29 23:40 | NUR ---
REASSESSMENT COMPLETE, SEE FLOWSHEET FOR ALL FINDINGS. VAPOTHERM ON @ 80%, SPO2 96. PT REPOSITIONED FOR COMFORT. VSS, DENIES NEEDS AT THIS TIME. CALL LIGHT AND BEDSIDE TABLE WITHIN PT REACH. CPOC.
[2017-05-30] VITALS (24 sets, daily range): BP systolic 97–163; BP diastolic 36–93
--- NOTE | 2017-05-30 01:29 | NUR ---
NO NEW CHANGES AT THIS TIME. PT REPOSITIONED FOR COMFORT. VSS, NO C/O PAIN. DENIES FURTHER NEEDS. RESTING COMFORTABLY. CPOC.
--- NOTE | 2017-05-30 04:40 | NUR ---
PT TO BEDPAN, NOT TOLERATING MOVEMENT WELL. SPO2 DECREASES WITH ANY MOVEMENT INTO 70-80'S. VAPOTHERM @ 100%. PT HAD LIQUID BM, PT CLEANED AND POSITIONED UPRIGHT IN BED, HOB @ 45 DEGREES. SLOW, DEEP BREATHING ENCOURAGED. SPO2 TRENDS BACK INTO 90'S. RESPIRATORY AT BEDSIDE TO START TREATMENT.
[2017-05-30 06:09] LABS: BASOPHILS 0.1 % (0-2); EOSINOPHILS 0 % (0-7); HEMATOCRIT 35.3 % (36.0-48.0); HEMOGLOBIN 11.5 g/dL (12-16); IMMATURE GRANULOCYTES 1.3 % (0-5); LYMPHOCYTES 7.5 % (15-50); MCH 32.5 pg (26.0-34.0); MCHC 32.6 g/dL (31.0-37.0); MCV 99.7 fL (80.0-100.0); MEAN PLATELET VOLUME 9.9 fL (7.4-10.4); MONOCYTES 8.3 % (2-11); NEUTROPHILS 82.8 % (40-80); PLATELET COUNT 416 10x3/uL (130-400); RBC 3.54 10x6/uL (4.00-5.40); RDW 15.9 % (11.5-14.5); WBC 11.7 10x3/uL (4.8-10.8)
--- NOTE | 2017-05-30 06:34 | NUR ---
REC'D CALLBACK FROM [place]. NEW ORDERS REC'D. SLIDING SCALE TO BE ORDERED FOR HIGH BLOOD SUGARS.
[2017-05-30 06:56] LABS: ALBUMIN 2.1 g/dL (3.4-5.0); ANION GAP 12.9 mmol/L (8-16); BILIRUBIN - TOTAL 0.34 mg/dL (0.2-1.3); CALCIUM 8.7 mg/dL (8.5-10.1); CARBON DIOXIDE 30.9 mmol/L (21.0-32.0); PROTEIN - SERUM 5.6 g/dL (6.4-8.2)
[2017-05-30 06:58] LABS: CREATININE - SERUM 1.2 mg/dL (0.6-1.3); POTASSIUM - SERUM 4.8 mmol/L (3.5-5.1)
--- NOTE | 2017-05-30 07:48 | NUR ---
RESTING IN BED AT THIS TIME. NO ACUTE DISTRESS NOTED. RESPIRATIONS STEADY AND UNLABORED. AWAKENS EASILY WHEN SPOKEN TO. WILL CONTINUE PLAN OF CARE.
--- NOTE | 2017-05-30 09:48 | NUR ---
UP IN BED WATCHING TV.DENIES ANY NEEDS. NO ACUTE DISTRESS NOTED. WILL CONTINUE PLAN OF CARE.
--- NOTE | 2017-05-30 09:50 | NUR ---
NUTRITION F/U PT VISIT. REPORTS TOLERATING FULL LIQUID DIET. DRINKING ALL OF HER ENSURE. RD FOLLOWING
--- NOTE | 2017-05-30 11:44 | NUR ---
TOTAL BED CHANGE PERFORMED AT THIS TIME. PT NOTED TO HAVE MEDIUM SIZED LIQUID BROWN BOWEL MOVEMENT. BART CARE AND JUAREZ CARE PERFORMED AT THIS TIME. PT UP IN BED AT THIS TIME. DENIES ANY NEEDS. WILL CONTINUE PLAN OF CARE.
--- NOTE | 2017-05-30 13:44 | NUR ---
UP IN BED AWAKE AT THIS TIME. DENIES ANY NEEDS. WILL CONTINUE PLAN OF CARE.
--- NOTE | 2017-05-30 15:43 | NUR ---
RESTING IN BED AT THIS TIME. NO ACUTE DISTRESS NOTED. RESPIRATIONS STEADY AND UNLABORED. DENIES ANY NEEDS. AWAKENS EASILY WHEN SPOKEN TO WILL CONTINUE PLAN OF CARE.
--- NOTE | 2017-05-30 18:03 | NUR ---
CONTINENT BOWEL MOVEMENT NOTED AT THIS TIME VIA BEDPAN. LIQUID AND BROWN, MEDIUM IN SIZE. NO ACUTE DISTRESS NOTED. BART CARE AND JUAREZ CARE PROVIDED. NO ACUTE DISTRESS NOTED. WILL CONTINUE PLAN OF CARE.
--- NOTE | 2017-05-30 19:30 | NUR ---
PT AOX4. RESPIRATIONS SHALLOW, LABORED UPON EXERTION. LUNG SOUNDS EXP WHEEZES/DIMINISHED. VAPOTHERM @ 75%. S1S2 HEARD, PERIPHERAL PULSES PRESENT. BOWEL SOUNDS ACTIVGE IN ALL QUADRANTS. JUAREZ CATH INTACT. PT REPOSITIONED FOR COMFORT. COUGH/DB ENCOURAGED. VSS, DENIES NEEDS AT THIS TIME. CALL LIGHT AND BEDSIDE TABLE WITHIN PT REACH. CPOC.
--- NOTE | 2017-05-30 20:30 | NUR ---
NO VISITORS AT THIS TIME.
--- NOTE | 2017-05-30 21:38 | NUR ---
PT POSITIONED ON BEDPAN, DOES NOT TOLERATE WELL, SPO2 DECREASES INTO 70'S UPON MOVEMENT ON 100% VAPOTHERM. PT CLEANED AND PARTIAL LINEN CHANGE COMPLETE. PT POSITIONED UP IN BED, SPO2 TRENDS BACK UP WITH REST AND DEEP BREATHING.
--- NOTE | 2017-05-30 23:30 | NUR ---
REASSESSMENT COMPLETE, SEE FLOWSHEET FOR ALL FINDINGS. PT REPOSITIONED IN BED. ORAL CARE COMPLETED INDEPENDENTLY. JUICE TO BEDSIDE PER REQUEST. DENIES FURTHER NEEDS AT THIS TIME. CALL LIGHT AND BEDSIDE TABLE WITHIN PT REACH. CPOC.
[2017-05-31] VITALS (24 sets, daily range): BP systolic 113–163; BP diastolic 64–119
--- NOTE | 2017-05-31 03:45 | NUR ---
REASSESSMENT COMPLETE, SEE FLOWSHEET FOR ALL FINDINGS. NO NEW CHANGES AT THIS TIME. PT TO BEDPAN, LIQUID STOOL. PT CLEANED AND PARTIAL LINEN CHANGE COMPLETE. PT POSITIONED IN BED FOR COMFORT. FRESH WATER TO BEDSIDE. DENIES FURTHER NEEDS AT THIS TIME. CALL LIGHT AND BEDSIDE TABLE WITHIN PT REACH. CPOC.
[2017-05-31 04:46] LABS: BASOPHILS 0.1 % (0-2); EOSINOPHILS 0 % (0-7); HEMOGLOBIN 12.2 g/dL (12-16); IMMATURE GRANULOCYTES 2.2 % (0-5); MCH 32.4 pg (26.0-34.0); MCV 98.4 fL (80.0-100.0); MEAN PLATELET VOLUME 9.8 fL (7.4-10.4); MONOCYTES 9.4 % (2-11); NEUTROPHILS 78.3 % (40-80); PLATELET COUNT 454 10x3/uL (130-400); RBC 3.76 10x6/uL (4.00-5.40); RDW 15.6 % (11.5-14.5); WBC 16.2 10x3/uL (4.8-10.8)
[2017-05-31 05:19] LABS: ALBUMIN 2.4 g/dL (3.4-5.0); ANION GAP 11.6 mmol/L (8-16); BILIRUBIN - TOTAL 0.38 mg/dL (0.2-1.3); CALCIUM 9.5 mg/dL (8.5-10.1); CARBON DIOXIDE 34.7 mmol/L (21.0-32.0); CREATININE - SERUM 0.9 mg/dL (0.6-1.3); POTASSIUM - SERUM 4.3 mmol/L (3.5-5.1)
--- NOTE | 2017-05-31 08:13 | NUR ---
UP IN BED AWAKE AT THIS TIME. NO ACUTE DISTRESS NOTED. DENEIS ANY NEEDS. WILL CONTINUE PLAN OF CARE.
--- NOTE | 2017-05-31 19:15 | NUR ---
ASSESSMENT COMPLETE. S1S2. NSR SHOWING ON MONITOR. RR SHALLOW; DYSPNEA ON EXERTION; CRACKLES IN RIGHT UPPER LOBE; DIMINISHED BILATERALLY IN MID AND LOWER LOBES; DIMINISHED IN LEFT UPPER LOBE. RADIAL AND PEDAL PULSES PALPATED. VAPOTHERM @ 40L. PERRLA. AAO. BOWEL SOUNDS ACTIVE. PT MAKES CHANGES IN POSITION INDEPENDENTLY; ADLS INDEPENDENTLY. JUAREZ CATH IN PLACE. LEFT SUBCLAVIAN CVL; PATENT.
--- NOTE | 2017-05-31 21:41 | NUR ---
NO VISITORS DURING VISITATION.
--- NOTE | 2017-05-31 23:10 | NUR ---
REASSESSMENT COMPLETE. NO ACUTE CHANGES FROM PREVIOUS ASSESSMENT.
[2017-06-01] VITALS (24 sets, daily range): BP systolic 86–141; BP diastolic 50–91
--- NOTE | 2017-06-01 01:45 | NUR ---
PT AWAKE; ALERT. RESTLESS. PT COMPLETED SELF BATH. PARTIAL LINEN CHANGE. FRESH SOCKS PROVIDED.
--- NOTE | 2017-06-01 03:30 | NUR ---
REASSESSMENT COMPLETE. NO ACUTE CHANGES FROM PREVIOUS ASSESSMENT. VSS. NO DISTRESS NOTED.
[2017-06-01 03:39] LABS: BASOPHILS 0.2 % (0-2); EOSINOPHILS 0.1 % (0-7); HEMATOCRIT 39.8 % (36.0-48.0); HEMOGLOBIN 13.4 g/dL (12-16); IMMATURE GRANULOCYTES 3.1 % (0-5); LYMPHOCYTES 17.5 % (15-50); MCH 32.6 pg (26.0-34.0); MCHC 33.7 g/dL (31.0-37.0); MCV 96.8 fL (80.0-100.0); MEAN PLATELET VOLUME 10.6 fL (7.4-10.4); MONOCYTES 4.1 % (2-11); PLATELET COUNT 452 10x3/uL (130-400); RBC 4.11 10x6/uL (4.00-5.40); RDW 15.4 % (11.5-14.5); WBC 19.5 10x3/uL (4.8-10.8)
[2017-06-01 03:55] LABS: ALBUMIN 2.4 g/dL (3.4-5.0); ANION GAP 14.2 mmol/L (8-16); BILIRUBIN - TOTAL 0.26 mg/dL (0.2-1.3); CALCIUM 9.4 mg/dL (8.5-10.1); CARBON DIOXIDE 33.1 mmol/L (21.0-32.0); CREATININE - SERUM 0.9 mg/dL (0.6-1.3); POTASSIUM - SERUM 4.3 mmol/L (3.5-5.1); PROTEIN - SERUM 5.9 g/dL (6.4-8.2); VANCOMYCIN - TROUGH 23.2 ug/mL (10.0-20.0)
--- NOTE | 2017-06-01 04:11 | NUR ---
FSBS CHECKED X3. BS 61. PT OFFERED JUICE; WANTED VANILLA ICECREAM; PROVIDED.
--- NOTE | 2017-06-01 06:00 | NUR ---
NO VISITORS DURING VISITATION.
--- NOTE | 2017-06-01 07:00 | NUR ---
PT REPORT REC'D, PT CARE ASSUMED. PT AAOX4 SITTING UP IN BED WATCHING TV, DENIES ANY PAIN, STATES "THE PUMP HELPS WITH MY PAIN, ONLY PAIN I REALLY HAVE IS WHEN I BREATH OUT." LEFT UPPER CHEST IMPLANTED PORT WITH FLUIDS INFUSING, SEE FLOW SHEET, DRESSING CDI. JURAEZ CATHETER FREE OF KINKS TO GRAVITY WITH URINE RETURN. SHIFT ASSESSMENT COMPLETED, SEE FLOW SHEET, ROOM FREE OF CLUTTER, BED LOCKED IN LOWEST POSITION, CALL LIGHT IN REACH, WILL CONTINUE TO MONITOR PT.
--- NOTE | 2017-06-01 09:02 | CN ---
PATIENT NAME:NINA VALDOVINOS MEDICAL RECORD: [id number] : 66 LOCATION:[id number] ADMIT DATE: 05/21/17 ACCOUNT: [id number] CONSULTING PHYSICIAN: BASIA MOREIRA MD REFERRING PHYSICIAN: DARYA DUGGAN MD DATE OF CONSULTATION: 05/28/2017 DIAGNOSES: 1. Respiratory distress. 2. Pancreatitis. 3. ARDS, recurrent pneumonia. 4. Autoimmune disease. 5. Chest pain. HISTORY: Mrs. Valdovinos has had multiple admissions for respiratory distress. She becomes very anxious. Respiratory rate goes up to the 50-60 range. She had this, this morning. She has been seen by pulmonary and it is felt to be ARDS pattern due to autoimmune disease, her chronic pancreatitis, and possible recurrent pneumonia. With this, she gets pain. It is not really chest pain, it is more epigastric pain radiating to her back. This is more compatible with her pancreatitis. She does not have a history of ischemic heart disease. She has no EKG changes. Enzymes are negative. REVIEW OF SYSTEMS: The patient reports easy bruising but reports no swollen glands. The patient reports no fever, no night sweats, no significant weight gain, no significant weight loss. No significant exercise tolerance. The patient reports no dry eyes, no irritation, no vision change. Patient reports no difficulty hearing and no ear pain. Patient reports no frequent nose bleeds or nose and sinus problems. Patient reports on arm pain on exertion. No shortness of breath while lying down. No history of heart murmur. Patient reports no cough, no wheezing or coughing up blood. Patient reports no abdominal pain, no vomiting. Normal appetite. No diarrhea and not vomiting blood. No nausea and no constipation. Patient reports no incontinence. No difficulty urinating. No hematuria. No increased frequency. Patient reports no muscle aches. No weakness, no arthralgias, no back pain. No swelling of the extremities. Patient reports no abnormal mole, no jaundice, no rashes. Reports no loss of consciousness. No weakness and no numbness. No seizures, dizziness, or headaches. The patient reports no depression, no sleep disturbance, feeling safe in a relationship and no alcohol abuse. Patient reports on fatigue. Reports no runny nose or sinus pressure. No itching, no hives, and no frequent sneezing. PHYSICAL EXAMINATION: GENERAL APPEARANCE: Well-nourished, well-developed, appears stated age. Level of distress, comfortable. PSYCHIATRIC: Mental status, alert, normal affect. Orientation, oriented to time, place and person. EYES: Lids and conjunctiva, noninjected. No discharge, no pallor. ENT: Lips, teeth, gums, normal dentition. Oropharynx, no cyanosis, no pallor. NECK: Carotid arteries, bilateral normal upstroke, no bruits, no thrills. JUGULAR VEINS: No jugular venous pressure or distention. CERVICAL LYMPH NODES: Nontender, nonenlarged. THYROID: Not enlarged. Nontender. No nodules. LUNGS: Respiratory effort, unlabored. CHEST: Normal curvature. No thoracic deformity. No chest wall tenderness. CONSULT REPORT [id number] NINA VALDOVINOS Percussion, resonant. Auscultation, clear. No wheezes, no rales, no rhonchi. CARDIOVASCULAR: Precordial exam, nondisplaced. No heaves or pericardial thrills. Rate and rhythm, regular. Heart sounds, normal S1, normal S2. No S3, no gallop, no rub. Systolic murmur, not heard. Diastolic murmur, not heard. EXTREMITIES: No cyanosis, no edema. Peripheral pulses, full and equal in all extremities, except as noted. No bruits appreciated. ABDOMEN: Soft, nondistended. Normal aorta. No bruit. Nontender. No masses. Liver, nontender, no hepatomegaly. Spleen, nontender, no splenomegaly. MUSCULOSKELETAL: No joint tenderness. No joint swelling. No erythema. NEUROLOGICAL: Normal gait, normal strength, normal tone. SKIN: Warm and dry. OVERALL IMPRESSION: Epigastric pain. This is noncardiac in etiology. At this time, no other cardiac workup needs to be ascertained. TRANSINT:[id number] Voice Confirmation ID: [id number] DOCUMENT ID: [id number] BASIA MOREIRA MD at 0902 CC: [id number] DICTATION DATE: 05/28/17 1145 FINISH PATCHER: 05/28/17 1217 ADM IN [place] [id number] [place] [address]
--- NOTE | 2017-06-01 09:03 | EC ---
PATIENT:NINA ODELL DATE OF SERVICE: 05/21/17 SEX: F MEDICAL RECORD: [id number] DATE OF : 66 LOCATION:[place] [address] AGE OF PATIENT: 46 ADMISSION DATE: 05/21/17 REFERRING PHYSICIAN: INTERPRETING PHYSICIAN: BASIA BLEVINS MD ECHOCARDIOGRAM REPORT ECHO CHARGES 5 ECHO LIMITED 1 DOPPLER ECHO COLOR FLOW 2 DOPPLER ECHO PULSE CLINICAL DIAGNOSIS: CP ECHOCARDIOGRAPHIC MEASUREMENTS (adult normal given) AC root (d.<3.7cm) 0 cm LV Septum d (<1.2 cm> 0 cm Valve Excursion 0 cm LV Septum (systole) 0 cm Left Atria (s.<4.0cm> 0 cm LVPW d(<1.2cm) 0 cm RV (d.<2.3cm) 0 cm LVPW (sytole) 0 cm LV diastole(<5.6CM) 0 cm MV E-F(>70mm/sec) 0 cm LV systole 0 cm LVOT Diameter 0 cm MV exc.(>10mm) 0 cm Est.ejection fraction (50-75%) % Pericardial Effusion N DOPPLER: LVIT 0 cm/sec A 0 cm/sec E 0 cm/sec LA 0 cm/sec RVSP 50.0 mmHg LVOT 0 cm/sec AOP1/2T 0 m/s Asc. Ao 0 cm/sec RVOT 0 cm/sec RA 0 cm/sec PA 0 cm/sec AV Gradient Peak 0 mmHg AV Mean 0 mmHg AV Area 0 cm MV Gradient Peak 0 mmHg MV Mean 0 mmHg MV Area 0 cm COMMENTS: LIMITED STUDY (2-D,COLOR,DOPPLER) COMPLETE ECHO DONE ON 03/06/17 Electronics Maintenance Technician: Rhonda ALMEIDA Certified Ophthalmic Surgical Assistant: Rhonda Blevins TAPE# PACS DATE OF SERVICE: 05/29/2017 PROCEDURE: Echocardiogram. FINDINGS: 1. Left ventricular chamber size is within normal limits. Left ventricular systolic function is normal. Overall ejection fraction estimated at 60%. 2. Left atrium, right atrium, and right ventricular chamber sizes are within normal limits. 3. Valvular structures have normal structure and motion. ECHOCARDIOGRAM REPORT [id number] NINA ODELL 4. Doppler interrogation reveals moderate to severe tricuspid regurgitation, no other valvular insufficiency or stenosis. Pulmonary systolic pressure is elevated, estimated at 50 mmHg. 5. No evidence of pericardial effusion or left ventricular thrombus. TRANSINT:[id number] Voice Confirmation ID: [id number] DOCUMENT ID: [id number] BASIA BLEVINS MD at 0903 CC: [id number] DICTATION DATE: 05/29/17 1121 TRUSS BUILDER: 05/29/17 1305 ADM IN [facility] [address] [id number]
--- NOTE | 2017-06-01 09:41 | NUR ---
DR. IRVIN AT THE BEDSIDE
--- NOTE | 2017-06-01 10:02 | NUR ---
Vancomycin trough is 23.2 will decrease to Vancomycin 1gm x1 more dose. 7 days of Vancomycin therapy is complete today.
--- NOTE | 2017-06-01 10:55 | NUR ---
CONTACTED DR. IRVIN OF [facility]BS RESULTS, ORDERS REC'D, WILL GIVE HALF OF ORDERED DOSE OF INSULIN, RECHECK AND TREAT NEEDED.
--- NOTE | 2017-06-01 11:00 | NUR ---
PT RESTING WITH EYES SHUT, NO C/O PAIN. REASSESSMENT COMPLETED, SEE FLOW SHEET. ROOM FREE OF CLUTTER, CALL LIGHT IN REACH, BED LOCKED IN LOWEST POSITION, WILL CONTINUE TO MONITOR PT.
--- NOTE | 2017-06-01 11:00 | NUR ---
NUTRITION F/U CHART REVIEWED, PT VISIT. PT REPORTS TOLERATING FULL LIQUID DIET, DRINKING ENSURE WITH MEALS. WILL CONTINUE TO PROVIDE DIET, ENSURE. MONITOR PO INTAKE. RD FOLLOWING
--- NOTE | 2017-06-01 12:00 | NUR ---
PT SITTING UP IN BED, DENIES ANY PAIN, WILL CONTINUE TO MONITOR PT.
--- NOTE | 2017-06-01 15:00 | NUR ---
PT RESTING WITH EYES CLOSED, DENIES ANY PAIN UPON REASSESSMENT, REASSESSMENT COMPLETED, SEE FLOW SHEET. ROOM FREE OF CLUTTER, BED LOCKED IN LOWEST POSITION, CALL LIGHT IN REACH, WILL CONTINUE TO MONITOR PT.
--- NOTE | 2017-06-01 17:00 | NUR ---
PT REQUESTING TO BE PUT ON BEDPAN, MEDIUM LOOSE STOOL. VSS, WILL CONTINUE TO MONITOR PT.
--- NOTE | 2017-06-01 19:20 | NUR ---
REPORT RECEIVED. SHIFT ASSESSMENT COMPLETED PER FLOW SHEET. PT LAYING IN BED WATCHING TV. ALERT AND ORIENTED X4. ABLE TO FOLLOW COMMANDS AND TURN SELF IN BED. S1 S2 PRESENT. RADIAL AND PEDAL PULSES PALP. TELEMETRY MONITORING HR 84. BREATHING PATTERN SHALLOW, LABORED, DYSPNEA. INSPIRATORY WHEEZES TO RUL, AND TISHA. DIMINISHED IN RML, RLL, AND LLL. VAPOTHERM AT 40 LPM 80 %. BRUISES NOTED TO ARMS AND ABDOMEN. LT CHEST IMPLANTED PORT INFUSING ZOFRAN GTT AT 4.7 MLS/HR, LR AT 10 MLS/HR, AND MANAGER OF COMPENSATION HYDROMORPHONE PUMP, SITE IS [facility]. JUAREZ CATHETER TO GRAVITY, SECURED DRAINING YELLOW URINE. SEE FLOW SHEET FOR COMPLETE ASSESSMENT. CALL LIGHT WITHIN REACH. BED IN LOWEST POSITION. WILL CONTINUE TO MONITOR.
--- NOTE | 2017-06-01 19:53 | NUR ---
SON AT BEDSIDE
--- NOTE | 2017-06-01 20:00 | NUR ---
WATER AND ICE CHIPS PROVIDED PER REQUEST, DENIES OTHER NEEDS. CALL LIGHT WITHIN REACH.
--- NOTE | 2017-06-01 21:05 | NUR ---
MEDS ADMINISTERED PER EMAR, SEE FOR DETAILS. WATER, ICE, AND DIET SODA PROVIDED PER REQUEST. DENIES FURTHER NEEDS. CALL LIGHT WITHIN REACH. WILL CONTINUE TO MONITOR.
--- NOTE | 2017-06-01 23:00 | NUR ---
REASSESSMENT COMPLETED PER FLOW SHEET, SEE FOR DETAILS. PT LAYING IN BED WATCHING TV. ICE CHIPS PROVIDED PER REQUEST, DENIES FURTHER NEEDS. CALL LIGHT WITHIN REACH. BED IN LOWEST POSITION. WILL CONTINUE TO MONITOR.
[2017-06-02] VITALS (24 sets, daily range): BP systolic 96–147; BP diastolic 45–92
--- NOTE | 2017-06-02 00:43 | NUR ---
PT LUMP MAKER LIGHT, ICE CHIPS PROVIDED PER REQUEST. JUAREZ CATHETER EMPTIED. 1550 MLS OF YELLOW URINE EMPTIED. DENIES FURTHER NEEDS. CALL LIGHT WITHIN REACH. BED IN LOWEST POSITION. WILL CONTINUE TO MONITOR.
--- NOTE | 2017-06-02 03:40 | NUR ---
REASSESSMENT COMPLETED PER FLOW SHEET, SEE FOR DETAILS. PT IS AAOX4. WATCHING TV. ICE CHIPS PROVIDED PER REQUEST, DENIES FURTHER NEEDS. CALL LIGHT WITHIN REACH. BED IN LOWEST POSITION. WILL CONTINUE TO MONITOR.
--- NOTE | 2017-06-02 03:50 | NUR ---
UNABLE TO DRAW BLOOD FROM INFUSAPORT, CALLED LABORATORY TO INFORM THEM.
--- NOTE | 2017-06-02 05:00 | NUR ---
PT LAYING IN BED RESTING, DENIES NEEDS AT THIS TIME. WILL CONTINUE TO MONITOR.
[2017-06-02 06:09] LABS: BASOPHILS 0.1 % (0-2); EOSINOPHILS 0 % (0-7); HEMATOCRIT 37.3 % (36.0-48.0); HEMOGLOBIN 12.4 g/dL (12-16); IMMATURE GRANULOCYTES 1.7 % (0-5); MCH 32.5 pg (26.0-34.0); MCHC 33.2 g/dL (31.0-37.0); MCV 97.9 fL (80.0-100.0); MEAN PLATELET VOLUME 10.4 fL (7.4-10.4); MONOCYTES 7.1 % (2-11); NEUTROPHILS 87.1 % (40-80); PLATELET COUNT 500 10x3/uL (130-400); RBC 3.81 10x6/uL (4.00-5.40); RDW 15.6 % (11.5-14.5)
[2017-06-02 06:18] LABS: INR 1.03 (0.85-1.17); PROTIME 13.4 SECONDS (11.6-15.0)
--- NOTE | 2017-06-02 06:25 | NUR ---
PT LAYING IN BED RESTING, INSULIN ADMINISTERED PER ORDERS, SEE EMAR FOR DETAILS. PT DENIES NEEDS. CALL LIGHT WITHIN REACH. ROOM LIGHT TURNED OFF PER REQUEST. WILL CONTINUE TO MONITOR.
[2017-06-02 07:00] LABS: ALBUMIN 2.4 g/dL (3.4-5.0); BILIRUBIN - TOTAL 0.35 mg/dL (0.2-1.3); C-REACTIVE PROTEIN 0.5 mg/dL (0.0-0.9); CALCIUM 8.9 mg/dL (8.5-10.1); CARBON DIOXIDE 33.6 mmol/L (21.0-32.0); MAGNESIUM - SERUM 1.2 mg/dL (1.8-2.4); PHOSPHOROUS 2.9 mg/dL (2.5-4.9); PROTEIN - SERUM 6.2 g/dL (6.4-8.2)
[2017-06-02 07:04] LABS: POTASSIUM - SERUM 3.6 mmol/L (3.5-5.1)
--- NOTE | 2017-06-02 07:15 | NUR ---
PT AWAKE AND ALERT. ON VAPOTHERM 40LPM AT 80%. O2 SAT 93%. PT GET SOB ON EXERTION. REPORTS PAIN 8/10 ACHING, ON BACK AND ABDOMEN. ORAL TEMPERATURE 98.0. IMPLANTED PORT ON LEFT SIDE OF CHEST. DRESSING CDI. NS AT 10ML/HR, ZOFRAN 4.7ML/HR. KNOCKER OFF WITH HYDROMORPHONE 0.2 Q 10 MIN WITH 4HR LOCKOUT. LUNG SOUNDS ARE CLEAR TISHA, RUL,AND RML. DIMINISHED ON LLL AND RLL. NO COUGH NOTED AT THIS TIME. JURAEZ DEPENDENT WITH CLEAR YELLOW URINE NOTED. BRUISING NOTED ON ARMS AND ABDOMEN. PT DENIES OTHER NEEDS AT THIS TIME. COMPLETE ASSESSMENT CHARTED.
--- NOTE | 2017-06-02 09:40 | NUR ---
MORNING MEDS GIVEN WITHOUT COMPLICATIONS. PT ATE 100% OF MEAL AND 600ML OF FLUID. PT DENIES OTHER NEEDS AT THIS TIME.
--- NOTE | 2017-06-02 11:08 | NUR ---
PT TAKEN TO OR FOR PROCEDURE.
--- NOTE | 2017-06-02 11:13 | NUR ---
BLOOD GLUCOSE 409. NOTIFIED DR. IRVIN. HE SAID TO GIVE 16 UNITS OF INSULIN INSTEAD OF THE 20 UNITS ON THE SLIDING SCALE.
--- NOTE | 2017-06-02 13:56 | NUR ---
COMPLETE BED LINEN CHANGE PROVIDE. JUAREZ CARE PROVIDED. PT DESATS WHEN MOVING AROUND IN BED. ENCOURAGED PT TO TAKE IN DEEP BREATHS. CONTINUES TO BE ON VAPOTHERM AT 40LPM 80%. PT DENIES OTHER NEEDS AT THIS TIME.
--- NOTE | 2017-06-02 17:27 | NUR ---
DINNER TRAY DELIVERED. PT RESTING COMFORTABLY. PT DENIES OTHER NEEDS AT THIS TIME. WILL CONTINUE TO MONITOR.
--- NOTE | 2017-06-02 19:15 | NUR ---
ASSESSMENT COMPELTE. S1S2. NSR SHOWING ON MONITOR. ON VAPOTHERM 40L @ 80%; SPO2 95%. DYSPNEA ON EXERTION NOTED. RR SHALLOW; WHEEZE NOTED BILATERALLY IN UPPER LOBES; DIMINISHED BILATERALLY THROUGHOUT ALL LOBES. PERRLA. MAKES CHANGES IN POSITION INDEPENDENTLY. RADIAL AND PEDAL PULSES PALPATED. GENERALIZED EDEMA NOTED TO EXTREMITIES. C/O SOB AND GENERALIZED PAIN 02/12. JUAREZ CATH AND SCD IN PLACE.
--- NOTE | 2017-06-02 21:41 | NUR ---
NO VISITORS DURING VISITATION
--- NOTE | 2017-06-02 22:12 | NUR ---
PT HAD SMALL BM; SOFT BROWN. INCONTINENT WITH COUGHING SPELL. PT CLEANED. LINENS CHANGED.
--- NOTE | 2017-06-02 23:09 | NUR ---
REASSESSMENT COMPLETE. NO ACUTE CHANGES AT THIS TIME. WILL CONTINUE TO MONTIOR.
--- NOTE | 2017-06-02 23:51 | NUR ---
PT ASSISTED TO BEDPAN; WHEN TURNING PT ON SIDE FOR BRIEF MOMENT TO CLEAN UP BUTTOCKS; PT O2 DESAT INTO 60%. PT REPOSITIONED AND HOB ELEVATED TO 45 DEGREES. PT HAVING DIFFICULT TIME RECOVERING; VAPOTHERM INCREASED TO 90%; 40L. O2 SATS INCREASED AFTER SHORT PERIOD. WILL CONTINUE TO MONITOR CLOSELY.
[2017-06-03] VITALS (23 sets, daily range): BP systolic 90–143; BP diastolic 42–86
--- NOTE | 2017-06-03 01:45 | NUR ---
PT ASSISTED TO BEDPAN. WHEN TURNING ON SIDE TO CLEAN PT DESAT DOWN IN 50% RANGE. VAPOTHERM INCREASED TO 100%. PT RECOVERED SLOWLY. LARGE LIQUID BROWN BM. PT CLEANED. WILL CONTINUE TO MONITOR.
--- NOTE | 2017-06-03 03:00 | NUR ---
REASSESSMENT COMPLETE. NO ACUTE CHANGES FROM PREVIOUS ASSESSMENT. VSS. NO DISTRESS NOTED. WILL CONTINUE TO MONITOR.
[2017-06-03 04:06] LABS: HEMATOCRIT 36.3 % (36.0-48.0); HEMOGLOBIN 11.9 g/dL (12-16); MCH 32.2 pg (26.0-34.0); MCHC 32.8 g/dL (31.0-37.0); MCV 98.4 fL (80.0-100.0); MEAN PLATELET VOLUME 10.3 fL (7.4-10.4); PLATELET COUNT 534 10x3/uL (130-400); RBC 3.69 10x6/uL (4.00-5.40); RDW 15.6 % (11.5-14.5); WBC 20.8 10x3/uL (4.8-10.8)
[2017-06-03 04:12] LABS: INR 0.97 (0.85-1.17); PROTIME 12.7 SECONDS (11.6-15.0)
[2017-06-03 04:22] LABS: ALBUMIN 2.2 g/dL (3.4-5.0); ALKALINE PHOSPHATASE 109 U/L (46-116); ALT (SGPT) 31 U/L (10-68); BILIRUBIN - TOTAL 0.35 mg/dL (0.2-1.3); CALC OSMOLALITY 273 mosm/kg (275-300); CALCIUM 8.9 mg/dL (8.5-10.1); CARBON DIOXIDE 39.3 mmol/L (21.0-32.0); CHLORIDE - SERUM 91 mmol/L (98-107); CREATININE - SERUM 0.8 mg/dL (0.6-1.3); MAGNESIUM - SERUM 1.3 mg/dL (1.8-2.4); POTASSIUM - SERUM 3.7 mmol/L (3.5-5.1); PROTEIN - SERUM 5.9 g/dL (6.4-8.2); SODIUM 133 mmol/L (136-145); UREA NITROGEN 22 mg/dL (7-18); eGFR NON AFRICAN AMERICAN 81 mL/min (90-120)
[2017-06-03 04:23] LABS: GLUCOSE 186 mg/dL (74-106)
[2017-06-03 04:30] LABS: LYMPHOCYTES 11 % (15-50); MONOCYTES 2 % (2-11); NEUTROPHILS 87 % (40-80); PLATELET ESTIMATE INCREASED
--- NOTE | 2017-06-03 06:00 | NUR ---
NO VISITORS DURING VISITATION.
--- NOTE | 2017-06-03 07:15 | NUR ---
PT ALERT AND ORIENTED, RESPIRATIONS SHALLOW, TAKING OFF UPDRAFT DURING ASSESSMENT STATING SHE WAS DONE WITH IT, DISCUSSED IT STILL HAD MEDICATION IN IT AND IT NEEDED TO BE FINISHED PT STATED "I KNOW, IM GROWN" AND REPLACED MASK, ON VAPOTHERM 80%, L PORT DRESSING CDI, LR KVO, ZOFRAN 4.7, WELDING MANAGER DILAUDID 0.2 Q 10 WITH 4 HR LOCK OUT, DENIES PAIN AT THIS TIME, REPOSITIONS WITH LITTLE ASSISTANCE, WILL CONTINUE TO MONITOR
--- NOTE | 2017-06-03 09:00 | NUR ---
PT ABLE TO REPOSITION SELF, TOLERATED AM MEDS WELL, DENIES ALL NEEDS, USES HIM TECH FOR PAIN, WILL CO NTINUE TO MONITOR
--- NOTE | 2017-06-03 10:02 | NUR ---
NUTRITION F/U CHART REVIEWED, PT REMAINS IN ICU. TOLERATING FULL LIQUID DIET WITH ENSURE. WILL CONTINUE TO PROVIDE DIET, ENSURE. MONITOR PT PROGRESS. RD FOLLOWING
--- NOTE | 2017-06-03 11:00 | NUR ---
BED BATH AND LINEN CHANGE COMPL;ETE, UP TO BSC SMALL BM, SPO2 DROPPING BUT RECOVERS WELL TO 96%,
--- NOTE | 2017-06-03 12:53 | NUR ---
PAGED GHANSHYAM NURSE ABOUT CONSULT
--- NOTE | 2017-06-03 12:58 | NUR ---
SPOKE WITH GHANSHYAM BAUTISTA NURSE ABOUT CONSULT
--- NOTE | 2017-06-03 15:00 | NUR ---
PT REPOSITIONED, VSS, DENIES ALL NEEDS, WILL CONTINUE TO MONITOR
--- NOTE | 2017-06-03 17:11 | NUR ---
PT REPOSITIONS SELF, VSS, SPO2 DROPPING WITH MOVEMENT BUT RECOVERING QUICKLY, REFUSES TO USE BEDPAN AND WHEN NEEDS TO HAVE BM INSISTS ON BEDSIDE COMMODE THAT WAS PLACED IN ROOM BY A PREVIOUS NURSE, TRANSFERS WELL AND SPO2 IS NO LONGER DROPPING INTO 60S BUT INTO LOW 80S, HAS HAD ONE BM TODAY, DENIES ALL NEEDS, WILL CONTINUE TO MONITOR
--- NOTE | 2017-06-03 19:15 | NUR ---
ASSESSMENT COMPELTE. S1S2. NSR SHOWING ON MONITOR. RR SHALLOW; LABORED. WHEEZE NOTED BILATERALLY IN UPPER LOBES; DIMINISHED BIALATERALLY IN LOWER LOBES. AAO. BOWEL SOUNDS ACTIVE X4; ASKS FOR BEDPAN. JUAREZ CATH AND SCD'S IN PLACE. RADIAL AND PEDAL PULSES PALPATED. PERRLA. PT MAKES CHANGES IN POSITION INDEPENDENTLY.
--- NOTE | 2017-06-03 21:46 | NUR ---
NO VISITORS DURING VISITATION.
--- NOTE | 2017-06-03 23:11 | NUR ---
REASSESSMENT COMPLETE. NO ACUTE CHANGES FROM PREVIOUS ASSESSMENT. VSS. NO DISTRESS NOTED. WILL CONTINUE TO MONITOR.
[2017-06-04] VITALS (24 sets, daily range): BP systolic 83–141; BP diastolic 52–83; Ht 170.2 cm; Wt 86.4 kg
--- NOTE | 2017-06-04 02:15 | NUR ---
PT ASSISTED TO BEDSIDE COMMODE. VSS. O2 SAT DROPPED TO 75%; RETURNED QUICKLY TO WNL.
--- NOTE | 2017-06-04 03:30 | NUR ---
REASSESSMENT COMPLETE. NO ACUTE CHANGES FROM PREVIOUS ASSESSMENT. SEE FLOW SHEET FOR DETAILS.
[2017-06-04 04:56] LABS: BASOPHILS 0.2 % (0-2); EOSINOPHILS 0 % (0-7); HEMATOCRIT 34.7 % (36.0-48.0); HEMOGLOBIN 11.7 g/dL (12-16); IMMATURE GRANULOCYTES 1.4 % (0-5); LYMPHOCYTES 5.8 % (15-50); MCH 32.5 pg (26.0-34.0); MCHC 33.7 g/dL (31.0-37.0); MCV 96.4 fL (80.0-100.0); MEAN PLATELET VOLUME 10.7 fL (7.4-10.4); MONOCYTES 2.8 % (2-11); NEUTROPHILS 89.8 % (40-80); PLATELET COUNT 551 10x3/uL (130-400); RDW 15.7 % (11.5-14.5); WBC 25.3 10x3/uL (4.8-10.8)
[2017-06-04 05:11] LABS: ALBUMIN 2.4 g/dL (3.4-5.0); ALKALINE PHOSPHATASE 110 U/L (46-116); ALT (SGPT) 29 U/L (10-68); CALCIUM 9.5 mg/dL (8.5-10.1); CHLORIDE - SERUM 89 mmol/L (98-107); GLUCOSE 210 mg/dL (74-106); PROTEIN - SERUM 5.4 g/dL (6.4-8.2); SODIUM 130 mmol/L (136-145)
[2017-06-04 05:14] LABS: CALC OSMOLALITY 275 mosm/kg (275-300); CREATININE - SERUM 1.2 mg/dL (0.6-1.3); MAGNESIUM - SERUM 2.4 mg/dL (1.8-2.4); PHOSPHOROUS 4.3 mg/dL (2.5-4.9); POTASSIUM - SERUM 5.6 mmol/L (3.5-5.1); UREA NITROGEN 38 mg/dL (7-18); eGFR NON AFRICAN AMERICAN 51 mL/min (90-120)
--- NOTE | 2017-06-04 05:15 | NUR ---
WHEN ENTERING THE ROOM FOUND PT VAPOTHERM AT 100%; WHEN ASKED IF RT HAD INCREASED THE VAPOTHERM; THE PT ADMITTED TO INCREASING THE O2 BY SELF. EDUCATED PT ON DANGERS OF INDEPENDENTLY ADJUSTING O2 AND WHY WE ARE MONITORING AND ADJUSTING O2. PT PROCEEDS TO AGGRESSIVELY STATED THAT WAS SOB AND NEEDED TO INCREASE IT THAT SHE IS "AN ADULT AND N0T RETARDED." FREQUENT CALLS THROUGHOUT THE NIGHT WERE MADE; 3-4X AN HOUR MINIMUM.
[2017-06-04 05:35] LABS: C-REACTIVE PROTEIN < 0.2 mg/dL (0.0-0.9)
--- NOTE | 2017-06-04 07:00 | NUR ---
REPORT RECIEVED FROM OFF GOING NURSE. SEE ASSESSMENT IN FLOW SHEET. PT REMIANS ON VAPOTHERM 40LPM AND 70%O2. PT DENIES SOB AT THIS TIME. SEE LUNG ASSESMENT IN FLOW SHEET. PT HOB ELVATED TO ABOUT 90 DEGREES. FC NOTED WITH CLEAR ORANGE TINGED URINE. SUPERVISOR PROPELLANT CHARGE LOADING PUMP PER ORDRES. PT C/O GENERLIZED PAIN. USES SUPERVISOR PROPELLANT CHARGE LOADING PUMP REGULARLY. DENIES ANY OTHER NEEDS AT THIS TIME. CALL LIGHT IN REACH. WILL CONT POC.
--- NOTE | 2017-06-04 07:30 | NUR ---
PTS CURTAINS PULLED SHUT PER HER REQUEST FOR PRIVACY AND SO THAT SHE CAN GET SOME REST. IV PUMP BEEPING WILL BE BEEPING AND WHILE TRYING TO WALK IN HER ROOM TO FIX PROBLEM, THE NOISE THAT COMES FROM THE PUMP THAT YOU HIT A BUTTON IS SOUNDED FROM INSIDE THE ROOM AND THEN THE CONTIOUS BEEPING IS SILENCED. ASK PT IF SHE TOUCHED THE IV PUMP AND SHE DENIES IT. PUMP IS AT BEDSIDE WITHIN REACH. MOVED IV POOL AND VAPOTHERM AWAY FROM REACH FROM PT. AFTER ABOUT 10 MINUTES, THE SAME SITUATION HAPPENS AND PT CONTIUES TO DENIES TOUCHING EQUIPMENT. EXPLAINED TO PT THAT SHE NEEDS TO LEAVE EQUIPMENT ALONE AND LET NURSING FIX THE PROBLEM MULTIPLE TIMES. EDUCATED THE DANGEROUSNESS OF MESSING WITH EQUIPMENT. CALL LIGHT IN REACH. WILL CONT POC
--- NOTE | 2017-06-04 09:00 | NUR ---
LEFT FOR CT VIA BED. RT HOOKED PT UP TO O2 BEFORE LEAVING. NO S/SX OF DISTRESS/DISOCMFORT NOTED. BREATHING REMAINS AT BASELINE. VSS.
--- NOTE | 2017-06-04 09:11 | NUR ---
BACK FROM CT. HOOKED BACK UP TO VAPOTHERM AND MONITORING EQUIPMENT. VSS. CALL LIGHT IN REACH. WILL CONT POC
--- NOTE | 2017-06-04 09:37 | NUR ---
NUTRITION F/U CHART REVIEWED, PT VISIT. PT REPORTS TOLERATING ADA DIET. STATES SHE WILL SPEAK TO HER DR. ABOUT "CHANGING HER DIET ALL THE TIME". UNSURE WHAT PT WAS REFERING TO VERY FEW CHANGES HAVE BEEN MADE TO DIET. WILL CONTINUE TO PROVIDE CURRENT DIET, MONITOR PT PROGRESS. RD FOLLOWING
--- NOTE | 2017-06-04 09:47 | NUR ---
PT SATTING AT 88%. REMAINS 40%LEATHER REPAIRER AND 70%O2. PT REPOSISIONED AND PULSE OX REPOSISTIONED ON ANOTHER FINGER. O2 SAT 94% AND STABLE WITH GOOD WAVE FORM. CALL LIGHT IN REACH. PT DENIES SOB AT THIS TIME.
--- NOTE | 2017-06-04 11:00 | NUR ---
SEE FLOW SHEET FOR ASSESSMENT. PT SITTING UPRIGHT IN BED WITH NO C/O PAIN AT THIS TIME. REMAINS ON VAPOTHERM. CALL LIGHT IN REACH. WILL CONT POC
--- NOTE | 2017-06-04 11:30 | NUR ---
ASSISTED PT TO BSC.TOLERATED TRASFER WELL WITH NO C/O SOB. BED LINENS CHAGNED AND NEW GOWN ON PT. SMALL BM NOTED. PT REQUEST THAT HER FC BE EMPTYIED. 950 CLEAR YELLOW/ORAGE URINE NOTED. BACK IN BED WITH NO C/O SOB/PAIN. CALL LIGHT IN REACH. WILL CONT POC
--- NOTE | 2017-06-04 12:00 | NUR ---
PT DENIES PAIN AT THIS TIME. NO CHANGE IN PT'S CONDITION. BREATHING NORMAL AND UNLABORED. REMAINS ON VAPOTHERM. HOB ELEVATED. WILL CONT POC.
--- NOTE | 2017-06-04 15:22 | NUR ---
DR LARSON AT BEDSIDE. PT RESTING WITH EYES CLOSED WITH NO S/SX OF DISTRESS/DISCOMFORT NOTED. O2 SAT AT 97%. ATTEMPTED TO WAKE UP VIA VERBALLY STIMULI. HE STATED THAT HE WILL COME BACK TOMORROW AND LET HER GET HER REST. CALL LIGHT. APPROXIMTILY 30 MINUTES LATER, PT WOKE UP TO TAKE MEDICATION.
--- NOTE | 2017-06-04 17:25 | NUR ---
PT'S IV POLL WAS GOING OFF AND HER CURTAINS WERE PULLED SHUT. WHENEVER INSPECTING IV POLL WHICH WAS STILL GOING OFF (AIR IN LINE), PT WAS LEANED OVER PRESSING BUTTONS ON PUMP. EXPLAINED POLITLY THAT SHE NEEDS TO LET REPAIR COIL WINDER KNOW BY PRESSING HER CALL LIGHT WHENEVER HER PUMP IS BEEPING SO THAT WE CAN FIX THE PROBLEM SAFTLY. SHE THEN REPLIED "I DONT LIKE YOUR ATTITUDE." I APPOLGIZED AND EXPLAINED THAT I WASNT TRYING TO BE RUDE WHENEVER SHE STATED THAT I WAS BEING "SMART". AIR IN TUBING FIXED. CALL LIGHT IN REACH. WILL CONT POC
--- NOTE | 2017-06-04 19:00 | NUR ---
REPORT REC'D, ASSUMED PATIENT CARE. ASSESSMENT COMPLETED. SEE FLOW SHEETS FOR ALL FINDINGS. PT AWAKE, ALERT AND ORIENTED X4, WATCHING TV. C/O PAIN TO ABDOMEN AND CHEST REGION 8/10 ON SCALE. SENIOR ASP NET DEVELOPER PUMP IN USE PER ORDER. SR ON CM WITH HR TO 90. LUNG SOUNDS CRACKLES/ DIMINISHED TO ALL SANTANA, UNLABORED ON 60% VIA VAPOTHERM. PPP. CALL LIGHT AND BST IN REACH. CONT TO MONITOR.
--- NOTE | 2017-06-04 19:25 | NUR ---
PT HAD A MEDIUM FORMED BM. SHE WAS SUPERVISED TO BEDSIDE COMMONME. NORMAL STEADY GAIT NOTED. PERFORMED OWN PERICARE AND FC CARE. CALL LIGHT IN REACH. WILL CONT POC.
--- NOTE | 2017-06-04 21:00 | NUR ---
SCHEDULED MEDS GIVEN PER ORDER WITHOUT DIFFIC. PT USING CALENDER LET OFF HELPER PUSH FOR DISCOMFORT. REPOSITONED SELF IN BED FOR COMFORT. CALL LIGHT AND BST IN REACH. CPOC.
--- NOTE | 2017-06-04 23:00 | NUR ---
REASSESSMENT COMPLETED. SEE FLOW SHEETS FOR ALL FINDINGS. PT AWAKEN EASILY WITH VOICES, NO C/O AT THIS TIME. NO ACUTE SIGNS OF DISTRESS NOTED. VSS. CALL LIGHT IN REACH. CPOC.
[2017-06-05] VITALS (18 sets, daily range): BP systolic 99–141; BP diastolic 20–97
--- NOTE | 2017-06-05 03:33 | NUR ---
REASSESSMENT COMPLETE PER FLOW SHEET. VSS. PT SLEEPING COMFORTABLY. NO NEW CHANGES AT THIS TIME. WILL CONTINUE TO MONITOR
[2017-06-05 03:53] LABS: BASOPHILS 0 % (0-2); EOSINOPHILS 0 % (0-7); HEMOGLOBIN 11.9 g/dL (12-16); IMMATURE GRANULOCYTES 1.3 % (0-5); LYMPHOCYTES 5.4 % (15-50); MCH 32.5 pg (26.0-34.0); MCHC 33.1 g/dL (31.0-37.0); MCV 98.4 fL (80.0-100.0); MEAN PLATELET VOLUME 10.2 fL (7.4-10.4); MONOCYTES 2.8 % (2-11); NEUTROPHILS 91.8 % (40-80); PLATELET COUNT 531 10x3/uL (130-400); RBC 3.66 10x6/uL (4.00-5.40); RDW 15.8 % (11.5-14.5); WBC 20.6 10x3/uL (4.8-10.8)
[2017-06-05 04:11] LABS: ALBUMIN 2.3 g/dL (3.4-5.0); BILIRUBIN - TOTAL 0.37 mg/dL (0.2-1.3); CALCIUM 8.8 mg/dL (8.5-10.1); CARBON DIOXIDE 37.4 mmol/L (21.0-32.0); CREATININE - SERUM 1.2 mg/dL (0.6-1.3); PROTEIN - SERUM 5.8 g/dL (6.4-8.2); VANCOMYCIN - TROUGH 1.8 ug/mL (10.0-20.0)
[2017-06-05 04:13] LABS: ANION GAP 7.9 mmol/L (8-16); POTASSIUM - SERUM 4.3 mmol/L (3.5-5.1)
--- NOTE | 2017-06-05 05:00 | NUR ---
ASSISTED TO BSC. SMALL STOOL RESULTED. JUAREZ AND BART CARE DONE PER PT. BACK TO BED. PT MARIA ELENA WELL. REPOSIITONED SELF IN BED,. CALL LIGHT IN REACH. CPOC.
--- NOTE | 2017-06-05 07:00 | NUR ---
REPORT RECIEVED FROM OFF GOING RN. SEE ASSESSMENT IN FLOW SHEET. PT UP HOB AT 90 WATCHING TV. PT CURRENTLY ON UPDRAFT PER RT. VSS. FC HAS CLEAR DAI URINE NOTED. ON VAPOTHERM 40LPM AND 60% O2. O2 SAT 100%. TURNED O2 DOWN TO 55%. TOLERATING WELL. C/O GENERLIZED PAIN THAT WAS BETTER FROM THE DAY BEFORE. STATES THAT TELESALES REPRESENTATIVE HELPS AND THAT HER PAIN IS TOLERABLE. CALL LIGHT IN REACH. WILL CONT POC
--- NOTE | 2017-06-05 07:30 | NUR ---
PRODUCTIVE COUGH NOTED. THICK YELLOW SPEUTUM IN [place]. O2 SAT STABLE. ENCOUARGE TO TCDB. FLUTTER VALVE IN FRONT OF PT. ENCOURAGE TO USE AND EDUCATED WHY TO USE IT. CALL LIGHT IN REACH. WILL CONT POC
--- NOTE | 2017-06-05 10:01 | NUR ---
PT SITTING UPRIGHT WATCHING TV WITH NO S/SX OF DISTRESS/DISMFORT NOTED. O2SAT 96%. VAPOTHERM O2 TURNED DOWN FROM 55% TO 50%. TOLERATING WELL. DENIES SOB. ENCOURAGE TO TCDB.
--- NOTE | 2017-06-05 14:02 | NUR ---
SPOKE WITH DR PEDERSON. LYIRC TO TRANSFER TO MED SURG.
--- NOTE | 2017-06-05 14:03 | NUR ---
SUPERVISED PT TO [facility]. PT HAD A NORMAL STEADY GAIT. MEDIUM FORMED STOOL NOTED. PT PERFORMED SELF PERIARE AND FC CARE. BACK IN BED. TOLERATED TRANSFER FROM BSC TO BED WELL. CALL LIGHT IN REACH. NO C/O SOB. WILL CONT POC
--- NOTE | 2017-06-05 16:09 | NUR ---
REPORT CALLED INTO TONYA RODRIGUEZ IN MED SURG. ALL PT BELONGINGS ACCOUNTED FOR. PT REQUEST THAT FC BE EMPYIED. 1500ML OF YELLOW URINE NOTED. LEFT VIA HIGH FLOW OXYGEN. OCCOMPANIED WITH RT. PT DENIES SOB. IN ROOM 2226. O S/SX OF DISTRESS/DISCOMFORT NOTED.
--- NOTE | 2017-06-05 16:10 | NUR ---
PT AOX4 RESP EVEN AND NONLABORED PT DENIES NEEDS AT THIS TIME IV TO LEFT INFUSIPORT PATENT AND INTACT AT THIS TIME WILL CONTINUE TO MONITOR
--- NOTE | 2017-06-05 16:57 | NUR ---
PT SITTING UP SIDE OF THE BED. VAPOTHERM IN CURRENT USE. PARAMETERS: 40LPM/45%FIO2, AND 33DEGREE SHELLEY. BILATERAL C/DIM BREATH SOUNDS TO POSTERIOR SANTANA OF AUSCULTATION. NON PRODUCTIVE COUGH NOTED WITH SLIGHT EXERTIONAL DYPSNEA WHILE AMBULATING TO BATHROOM. EQUALATERAL EXCURSION TO CHEST WALL. SP02 89 WHILE AMBULATING BUT RECOVERS TO 92 WHILE IN BED ELAVATED APROZ40 DEGRESS. PT APPEARS TO ADJUST AND NO S/S OF RESP DISTRESS AT THIS TIME
--- NOTE | 2017-06-06 00:30 | NUR ---
UPON ENTERING PATIENT'S ROOM, PATIENT SITTING ON BEDSIDE COMMODE WITH HER HEAD HELD BACK, ASLEEP. VAPOTHERM OFF, UPDRAFT MASK ON HER FACE, UNHOOKED FROM THE TUBING. I SAID PATIENT'S NAME A COUPLE OF TIMES, SHE OPENED HER EYES AND RESPONDED APPROPRIATELY. PUT VAPOTHERM BACK ON. PATIENT STATED "OH THAT MUST HAVE FELL OFF. SORRY FOR SCARING YOU, I FELL ASLEEP." PATIENT STOOD UP AND AMBULATED BACK TO BED, GAIT STEADY. PATIENT STATED "I'M FINE, I FEEL FINE. I DO NOT NEED ANY HELP." NOW LAYING IN BED, HOB 40 DEGREES. BED RAILS UP X'S 2.
--- NOTE | 2017-06-06 01:00 | NUR ---
PUT PATIENT ON A CONTINUOUS PULSE OX, TURNED ALARM TO THE LOUDEST VOLUME.
[2017-06-06 01:06] VITALS: BP 146/68
[2017-06-06 04:00] VITALS: BP 130/70
[2017-06-06 05:31] LABS: BASOPHILS 0 % (0-2); EOSINOPHILS 0 % (0-7); HEMOGLOBIN 11.4 g/dL (12-16); IMMATURE GRANULOCYTES 0.8 % (0-5); LYMPHOCYTES 2.8 % (15-50); MCH 32.7 pg (26.0-34.0); MCHC 33.5 g/dL (31.0-37.0); MCV 97.4 fL (80.0-100.0); MEAN PLATELET VOLUME 10.1 fL (7.4-10.4); MONOCYTES 7.4 % (2-11); PLATELET COUNT 507 10x3/uL (130-400); RBC 3.49 10x6/uL (4.00-5.40); RDW 15.9 % (11.5-14.5); WBC 21.4 10x3/uL (4.8-10.8)
[2017-06-06 05:49] LABS: ALBUMIN 2.3 g/dL (3.4-5.0); ANION GAP 13.4 mmol/L (8-16); BILIRUBIN - TOTAL 0.31 mg/dL (0.2-1.3); CALCIUM 9.1 mg/dL (8.5-10.1); CARBON DIOXIDE 31.8 mmol/L (21.0-32.0); POTASSIUM - SERUM 4.2 mmol/L (3.5-5.1); PROTEIN - SERUM 5.6 g/dL (6.4-8.2)
--- NOTE | 2017-06-06 06:45 | NUR ---
WAS PAGED FROM REHAB AT 0640 TO PATIENT 2226, PATIENTS WATER FOR INHALATION WAS COMPLETELY EMPTY.
--- NOTE | 2017-06-06 07:30 | NUR ---
RESTING QUIETLY WITH EYES CLOSED. RESP EVEN,NONLABORED.
--- NOTE | 2017-06-06 08:30 | NUR ---
ASSESSMENT COMPLETE. L PORT PATENT. LR INFUSING AT KVO AND ZOFRAN INFUSING AT 4.7 CC/HR VIA PUMP. MILITARY SOURCE OPERATIONS OFFICER DILAUDID 0.2-10-4 IN USE FOR PAIN CONTROL. VAPOTHERM IN USE AT 40 L 45%. SOB ON EXERTION. CONTINOUS PULSE OX IN USE. TELECOMMUNICATIONS SALES REPRESENTATIVE SHOWING SR 86 PER TECH. DENIES ANY NEEDS AT THIS TIME.
[2017-06-06 09:39] VITALS: BP 124/61
--- NOTE | 2017-06-06 12:40 | NUR ---
BLOOD SUGAR 457 PER LAB DRAW.
[2017-06-06 13:00] VITALS: BP 115/64
--- NOTE | 2017-06-06 14:41 | NUR ---
LATE ENTRY 1330- DR PEDERSON ASK CM WHEN PATIENT WOULD BE GOING TO [facility]. MD NOTES REVIEWED. REVIEWED DR PEDERSON ORDER. SPOKE WITH DR JAMES AND DACIA. EXPLAINED AT [facility] THE MD MUST SPEAK WITH A MD AT FACILITY. TC TO [facility] CARE MGT ACCESS TEAM. TRANSFERED BY CHARU TO MD CALL CENTER AT [phone]. ALL LINES ARE BUSY. SPOKE WITH DR IRVIN. PROVIDED HIM WITH CALL CENTER CONTACT NUMBER FOR MD TO MD COMMUNICATION. TC TO MEDICAL IMAGING TO REQUEST FILMS ON DISC. TC TO NURSING METEOROLOGICAL OBSERVER, MARCELLUS. TO ADVISE HER OF ORDER FOR TRANSFER. WILL ADVISE PRIMARY NURSE.
--- NOTE | 2017-06-06 15:00 | NUR ---
NO CHANGES NOTED AT PRESENT.
--- NOTE | 2017-06-06 15:08 | NUR ---
1500 DR IRVIN HAS BEEN UNABLE TO SPEAK WITH ANYONE. TC BACK TO MD CALL CENTER THRU HOSPITAL PUBLIC DEFENDER. HE PROVIDED TELEPHONE NUMBER [phone] OPT 2 THEN OPT 1. CM REMAINS ON HOLD FOR AN ANSWER. ADVISED TO LEAVE A MESSAGE BY RECORDING. LEFT BRIAAAGE.
[2017-06-06 16:07] VITALS: BP 118/64
--- NOTE | 2017-06-06 18:25 | NUR ---
NO CHANGES NOTED AT THIS TIME.
--- NOTE | 2017-06-06 18:26 | NUR ---
Still no call back from [facility] regarding transfer or bed assignment. COBRA form and PCS form started and primary nurse has. Disc with radiology films are on the hard copy chart. Await decision and response.
--- NOTE | 2017-06-06 19:00 | NUR ---
REPORT RECEIVED AND CARE OF PT ASSUMED. PT SITTING UP IN BED WATCHING TV. LEFT PORT ACCESSED WITH LR INFUSING AT 10 ML / HR; ZOFRAN INFUSING AT 4.7 ML / HR; AND A OPTOMETRIC COORDINATOR / DILAUDID FOR PAIN CONTROL. TELEMETRY IN PLACE AND READING 80 SR AT THIS ASSESSMENT. VAPOTHERM IN PLACE AT 40L WITH UNLABORED RESPIRATIONS AT THIS TIME. WILL MONITOR CLOSELY FOR NEEDS.
[2017-06-06 20:00] VITALS: BP 83/50
--- NOTE | 2017-06-06 20:40 | NUR ---
HS SNACK PROVIDED PER DIET ORDERS OF SKIM MILK, EMELYN CRACKERS AND PEANUT BUTTER. WILL CONTINUE TO MONITOR FOR NEEDS.
--- NOTE | 2017-06-06 21:15 | NUR ---
HS MEDICATIONS GIVEN. FSBS 273 THIS CHECK REQUIRING COVERAGE WITH 10 UNITS OF INSULIN PER SLIDING SCALE.
--- NOTE | 2017-06-06 23:22 | NUR ---
PT RESTING QUIETLY AT THIS TIME WITH UNLABORED BREATHING. VAPOTHERM IN USE AT 40 L. WILL CONTINUE TO MONTIOR FOR NEEDS.
--- NOTE | 2017-06-07 03:20 | NUR ---
FSBS 200 THIS ASSESSMENT. HELD SLIDING SCALE WA PT REQUEST, SHE DROPS VERY LOW AT TIMES. WILL RE-CHECK AT 0600 PER ORDER.
[2017-06-07 04:00] VITALS: BP 158/82
[2017-06-07 06:25] LABS: BASOPHILS 0 % (0-2); EOSINOPHILS 0 % (0-7); HEMATOCRIT 34.6 % (36.0-48.0); HEMOGLOBIN 11.4 g/dL (12-16); IMMATURE GRANULOCYTES 0.8 % (0-5); LYMPHOCYTES 6.9 % (15-50); MCH 31.9 pg (26.0-34.0); MCHC 32.9 g/dL (31.0-37.0); MCV 96.9 fL (80.0-100.0); MEAN PLATELET VOLUME 10.1 fL (7.4-10.4); MONOCYTES 3.3 % (2-11); PLATELET COUNT 510 10x3/uL (130-400); RBC 3.57 10x6/uL (4.00-5.40); RDW 15.9 % (11.5-14.5); WBC 18.3 10x3/uL (4.8-10.8)
[2017-06-07 06:58] LABS: ALBUMIN 2.4 g/dL (3.4-5.0); ANION GAP 9.4 mmol/L (8-16); BILIRUBIN - TOTAL 0.38 mg/dL (0.2-1.3); CALCIUM 9.4 mg/dL (8.5-10.1); CARBON DIOXIDE 35.4 mmol/L (21.0-32.0); CREATININE - SERUM 0.9 mg/dL (0.6-1.3); POTASSIUM - SERUM 4.8 mmol/L (3.5-5.1); PROTEIN - SERUM 5.6 g/dL (6.4-8.2)
--- NOTE | 2017-06-07 07:45 | NUR ---
ASSESSMENT COMPLETE. L PORT PATENT. LR INFUSING AT 10 CC/HR AND ZOFRAN INFUSING AT 4.7 CC/HR VIA PUMP. MOBILE CRANE OPERATOR DILAUDID 0.2-10-4 IN USE FOR PAIN CONTROL. AUTOMATIC SCREWMAKER SHOWING SR. VAPOTHERM IN USE AT 40 LITERS. DENIES ANY NEEDS AT THIS TIME.
[2017-06-07 08:30] VITALS: BP 143/74
--- NOTE | 2017-06-07 11:47 | NUR ---
DR IRVIN ADVISED THAT [facility] DECLINED THE PATIENT THEY HAD NO BEDS. HE STATED DR PEDERSON WANTS TO SPEAK WITH A PULMONARY MD. PROVIDED CONTACT PHONE NUMBER FOR MD TO MD COMMUNICATION TO DR ZHAO. THEY WILL CALL AGAIN TODAY.
[2017-06-07 12:31] VITALS: BP 138/73
--- NOTE | 2017-06-07 14:18 | NUR ---
SPOKE WITH CHARU FROM [facility]. WILL PLACE PATIENT ON WAITING LIST FOR BED TO TRANSFER.
--- NOTE | 2017-06-07 15:25 | NUR ---
LATE ENTRY 1330 DR PEDERSON SPOKE WITH TEAM FACILITATOR. HE ALSO SPOKE WITH DR IRVIN. DR PEDERSON REQUEST CM TO CONTACT MD CALL CENTER AT [facility]. HE WOULD SPEAK WITH A PULMONARY MD. TC TO CALL CENTER. SPOKE WITH ANNETTE THEN TRANSFERED TO [facility]. INFORMATION TAKEN SHE STATED THE PULMONARY MD'S DID NOT ADMIT. SHE WOULD OBTAIN MD FIELD HOCKEY AND LACROSSE COACH. SHE ADVISED THEY DID NOT HAVE A BED AND HAD BEEN ON ER DIVERSION AT TIMES TODAY. PROVIDED DR PEDERSON'S PERSONAL CELL PHONE NUMBER FOR CALL BACK. 1400 DR PEDERSON STATED HE SPOKE WITH DR MUÑIZ. THE PATIENT WOULD BE MOVED UP THE LIST. MED/ SURG UNIT RECEIVED FAXED FORMS TO COMPLETE AND FAX BACK TO [facility]. SIGNATURES OBTAINED FROM DR PEDERSON AND HOSPITAL IMPROVEMENT NURSE, MARCELLUS. FORMS FAXED BACK BY IMPROVEMENT NURSE. AWAIT CALL.
[2017-06-07 16:11] VITALS: BP 118/62
--- NOTE | 2017-06-07 18:27 | NUR ---
WANTING A JUAREZ CATHETER. SPOKE WITH DR IRVIN. OK TO INSERT JUAREZ CATHETER.
--- NOTE | 2017-06-07 19:00 | NUR ---
REPORT RECEIVED AND CARE OF PT ASSUMED. PT LYING IN SEMI JACOBSON'S POSITION WITH EYES CLOSED AND UNLABORED BREATHING. VAPOTHERM IN PLACE AT 40L. TELEMETRY IN PLACE AND READING 69 SR AT THIS ASSESSMENT. WILL MONITOR FOR NEEDS. NEW ORDER FOR JUAREZ CATHETER...WILL PLACE TONIGHT.
[2017-06-07 20:00] VITALS: BP 157/69
--- NOTE | 2017-06-07 21:00 | NUR ---
HS SNACK GIVEN OF ICE CREAM, EMELYN CRACKERS, AND PEANUT BUTTER. WILL CONTINUE TO MONITOR FOR NENEDS.
--- NOTE | 2017-06-07 21:25 | NUR ---
HS MEDICATIONS GIVEN. FSBS 395 THIS CHECK (BEFORE SNACK) REQUIRING COVERAGE WITH 16 UNITS OF INSULIN PER SLIDING SCALE. WILL MONITOR FOR NEEDS.
--- NOTE | 2017-06-07 21:30 | NUR ---
PLACED 16 F JUAREZ CATHETER WITH IMMEDIATE RETURN OF YELLOW URINE. STAT LOCK PLACED ON RIGHT LEG TO SECURE TUBING. PT TOLERATED WELL.
--- NOTE | 2017-06-07 22:10 | NUR ---
FAXED CURRENT PROGRESS NOTES TO [facility]. STILL AWAITING BED BUT PT IS ON THE WAITING LIST.
--- NOTE | 2017-06-07 23:44 | NUR ---
PT SLEEPING IN SEMI FOWELR'S POSITION WITH UNLABORED BREATHING. WILL CONTINUE TO MONITOR FOR NEEDS.
[2017-06-08 04:00] VITALS: BP 155/87
[2017-06-08 05:35] LABS: BASOPHILS 0 % (0-2); EOSINOPHILS 0 % (0-7); HEMATOCRIT 33.6 % (36.0-48.0); IMMATURE GRANULOCYTES 0.8 % (0-5); LYMPHOCYTES 3.3 % (15-50); MCH 31.8 pg (26.0-34.0); MCHC 32.7 g/dL (31.0-37.0); MCV 97.1 fL (80.0-100.0); MEAN PLATELET VOLUME 10.1 fL (7.4-10.4); MONOCYTES 8.7 % (2-11); NEUTROPHILS 87.2 % (40-80); PLATELET COUNT 493 10x3/uL (130-400); RBC 3.46 10x6/uL (4.00-5.40); RDW 16.2 % (11.5-14.5); WBC 15.3 10x3/uL (4.8-10.8)
[2017-06-08 06:05] LABS: ALBUMIN 2.3 g/dL (3.4-5.0); ALKALINE PHOSPHATASE 84 U/L (46-116); ALT (SGPT) 22 U/L (10-68); BILIRUBIN - TOTAL 0.47 mg/dL (0.2-1.3); CALC OSMOLALITY 279 mosm/kg (275-300); CALCIUM 9.2 mg/dL (8.5-10.1); CARBON DIOXIDE 37.6 mmol/L (21.0-32.0); CHLORIDE - SERUM 94 mmol/L (98-107); CREATININE - SERUM 0.7 mg/dL (0.6-1.3); POTASSIUM - SERUM 4.6 mmol/L (3.5-5.1); PROTEIN - SERUM 5.4 g/dL (6.4-8.2); SODIUM 132 mmol/L (136-145); UREA NITROGEN 35 mg/dL (7-18); eGFR NON AFRICAN AMERICAN > 90 mL/min (90-120)
[2017-06-08 06:06] LABS: GLUCOSE 216 mg/dL (74-106)
--- NOTE | 2017-06-08 07:45 | NUR ---
PT ASSESSMENT COMPLETE NO ACUTE DISTRESS NTOED VOICES ALL NEEDS TO STAFF ALL LIGHT INREACH SIDE RAILS UP X 2 VAPOTHERM AT 40 LPM
--- NOTE | 2017-06-08 08:00 | NUR ---
PT HERE FOR PANCREATITIS FOR THIS VISIT IV TO LEFT INFUSIPORT PATENT AND INTACT AT THIS TIME SRX2 BED AT LOWEST SETTING CALL LIGHT WITHIN REACH WILL CONTINUE TO MONITOR
[2017-06-08 08:02] VITALS: BP 137/75
[2017-06-08 12:20] VITALS: BP 101/54
--- NOTE | 2017-06-08 16:00 | NUR ---
PT RESTING WELL IN BED WITH EYES CLOSED
[2017-06-08 16:21] VITALS: BP 142/82
[2017-06-08 20:00] VITALS: BP 131/75
--- NOTE | 2017-06-08 20:15 | NUR ---
PT AWAKE, ALERT, ORIENTED, ASKING FOR ICE CREAM, UPSET THAT HER REGULATORY CONSULTANT IS MAXED OUT AT THIS TIME, STATES SHE NEEDS A BOLUS. PT DENIES ANY OTHER NEEDS. CONTINUE TO MONITOR CLOSELY. BED LOW, CALL LIGHT IN REACH, SIDE RAILS X 2, HOB 35 DEGREES.
--- NOTE | 2017-06-08 23:04 | NUR ---
PTS TARE WORKER DILAUDID CHANGED OUT R/T BEING EMPTY, PT DENIES ANY OTHER NEEDS. PT REMAINS AWAKE, ALERT, ORIENTED. CONTINUE TO MONITOR CLOSELY.
--- NOTE | 2017-06-09 00:11 | NUR ---
PT CALLED C/O HER JUAREZ LEAKING AND WANTING IT REPLACED. PT IS CURRENTLY SITTING ON THE BEDSIDE COMMODE, NO OTHER NEEDS. WILL REPLACE JUAREZ AND CONTINUE TO MONITOR CLOSELY.
[2017-06-09 01:51] VITALS: BP 139/76
[2017-06-09 04:00] VITALS: BP 130/58
--- NOTE | 2017-06-09 04:19 | NUR ---
PT HAS BEEN MONITORED CLOSELY THIS SHIFT, HOURLY ROUNDING AND PRN. AT 01:15 THIS A.M. I REALIZED I HAD GIVEN PTS DILAUDID BOLUS IN ERROR. INSTEAD OF BOLUSING 0.4MG Q 3 HOURS, I GAVE 4MG IV VIA DROP HAMMER SET UP OPERATOR DILAUDID TWICE WITHIN 3 HOURS. I HAVE FILED AN INCIDENT REPORT, NOTIFIED MY COMMUNITY ENGAGEMENT COORDINATOR, ALEXANDER HSU, AND WILL NOTIFY PHYSICIAN WELL. PT HAS REMAINED STABLE, AWAKE, ALERT, ORIENTED, UNTIL JUST NOW, PT IS RESTING COMFORTABLY. PT IS EASILY ROUSABLE TO VERBAL STIMULI, DENIES ANY NEEDS. WILL CONTINUE TO MONITOR PT CLOSELY.
--- NOTE | 2017-06-09 06:52 | NUR ---
PT NOTIFIED OF DILAUDID CONTINUING EDUCATION SPECIALIST MEDICATION ERROR IN THE PRESENCE OF NEIL MANLEY RN. PT RESPONDED BY STATING THAT HER PAIN HAS NOT BEEN CONTROLLED AND THAT IT HAD BEEN BETTER CONTROLLED THIS SHIFT. PT IS AWAKE, ALERT, ORIENTED, AND CURRENTLY DENIES ANY NEEDS. CONTINUE TO MONITOR.
[2017-06-09 07:32] LABS: BASOPHILS 0.1 % (0-2); EOSINOPHILS 0 % (0-7); HEMATOCRIT 36.3 % (36.0-48.0); HEMOGLOBIN 11.8 g/dL (12-16); IMMATURE GRANULOCYTES 0.8 % (0-5); LYMPHOCYTES 4.1 % (15-50); MCH 32.2 pg (26.0-34.0); MCHC 32.5 g/dL (31.0-37.0); MCV 98.9 fL (80.0-100.0); MEAN PLATELET VOLUME 10.8 fL (7.4-10.4); MONOCYTES 7.6 % (2-11); NEUTROPHILS 87.4 % (40-80); PLATELET COUNT 461 10x3/uL (130-400); RBC 3.67 10x6/uL (4.00-5.40); RDW 15.8 % (11.5-14.5); WBC 19.4 10x3/uL (4.8-10.8)
[2017-06-09 07:42] LABS: ALBUMIN 2.8 g/dL (3.4-5.0); BILIRUBIN - TOTAL 0.38 mg/dL (0.2-1.3); CALCIUM 9.2 mg/dL (8.5-10.1); CARBON DIOXIDE 37.5 mmol/L (21.0-32.0); POTASSIUM - SERUM 4.5 mmol/L (3.5-5.1); PROTEIN - SERUM 6.1 g/dL (6.4-8.2)
[2017-06-09 07:51] LABS: CREATININE - SERUM 0.9 mg/dL (0.6-1.3)
[2017-06-09 08:41] VITALS: BP 153/77
--- NOTE | 2017-06-09 09:10 | NUR ---
RECIEVED CALL FROM [facility], STATED NO BEDS AVAIL AT HIS TIME AND MAY NOTR HAVE ANY BEDS AVAIL TODAY, RELAYED MESSAGE TO CASE MANAGEMENT
--- NOTE | 2017-06-09 10:35 | NUR ---
ROOM TWMP ADJUSTED TO 70 DEGREES.PT WITHOUT DISTRESS.CALL LIGHT IN REACH
[2017-06-09 11:55] VITALS: BP 146/87
--- NOTE | 2017-06-09 12:30 | NUR ---
PER [place], CHANGE PORT NEEDLE TO MAKE SURE ABLE TO ACCESS, WITH ASSISTANCE OF MICHAEL PARKER, NEEDLE CHANGED AND PORT DRAWS WITH NO PROBLEM. MUST MAKE SURE TO FLUSH TWICE BEFORE ABLE TO PULL. RELAYED TO [place]
--- NOTE | 2017-06-09 12:32 | NUR ---
NUTRITION F/U CHART REVIEWED, PT VISIT. TOLERATING ADA/AHA DIET WITH 100% INTAKE RECENT MEALS. WILL CONTINUE TO PROVIDE DIET, MONITOR PO INTAKE. RD FOLLOWING
--- NOTE | 2017-06-09 12:40 | NUR ---
CM REASSESSMENT NOTE: PATIENT IS STILL WAITING TRANSFER TO [facility]. JANETTE SPOKE WITH KELSEY AT [facility] BED CONTROL AND SHE STATED THERE ARE NO BEDS TODAY. JANETTE EXPLAINED DR. PEDERSON SPOKE WITH DOCTOR AT [facility] AND HE STATED SHE WOULD BE MOVED UP THE LIST. KELSEY STATED THERE WERE NO BEDS AND TO TRY TOMORROW. CM WILL CALL IN AM TO CHECK FOR BED AVAILABILITY.
--- NOTE | 2017-06-09 14:52 | NUR ---
PT REQUESTED BOLUS, ADMIN 0.4
[2017-06-09 15:34] VITALS: BP 138/63
--- NOTE | 2017-06-09 19:23 | NUR ---
PT FAMILY NEEDS TO BE CONTACTED WHEN BED IS AVAIL FOR PT TO BE TRANSFERRED. PT'S BROTHER MARSHA PHONE NUMBER [phone].
[2017-06-09 20:00] VITALS: BP 150/73
--- NOTE | 2017-06-09 20:00 | NUR ---
PT AWAKE AND ALERT ORIENTED X 3 NO DISTRESS NOTED VOICES ALL NEEDS TO STAFF. ALL ALDS PER STAFF ASSIST VAPOTHERM AT 40 LPM. JUAREZ PATENT TO CLEAR YELLOW URINE
--- NOTE | 2017-06-09 20:30 | NUR ---
PATIENT IS AWAKE, ALERT AND ORIENTED X'S 4. PATIENT HAS A VAPOTHERM ON. LAYING IN BED WATCHING TV. SHE DENIES NEEDS AT THIS TIME. BED IN LOWEST POSITION, CALL LIGHT IN REACH. BED RIALS UP X'S 2.
[2017-06-10] VITALS: BP 131/71
[2017-06-10 04:00] VITALS: BP 158/77
[2017-06-10 06:09] LABS: BASOPHILS 0 % (0-2); EOSINOPHILS 0 % (0-7); HEMATOCRIT 33.9 % (36.0-48.0); IMMATURE GRANULOCYTES 0.6 % (0-5); LYMPHOCYTES 9.5 % (15-50); MCH 32.3 pg (26.0-34.0); MCHC 32.4 g/dL (31.0-37.0); MCV 99.4 fL (80.0-100.0); MEAN PLATELET VOLUME 10.2 fL (7.4-10.4); NEUTROPHILS 86.9 % (40-80); PLATELET COUNT 486 10x3/uL (130-400); RBC 3.41 10x6/uL (4.00-5.40); RDW 16.1 % (11.5-14.5)
[2017-06-10 06:24] LABS: WBC 13.6 10x3/uL (4.8-10.8)
--- NOTE | 2017-06-10 06:54 | NUR ---
CALLED TO PT ROOM HAS SHORTNESS OF BREATH PT STATES THAT RESPIRATORY THERAPIST TITRATED HER VAPOTHERM DOWN AND SHE FEELS VERY SHORT OF BREATH. RT PAGED AND RETURNED CALL NOTIFIED OF PATIENT CONDITION SPO2 76% RT ON SCENE AND TITRATED O2
[2017-06-10 07:00] LABS: ALBUMIN 2.5 g/dL (3.4-5.0); ANION GAP 11.1 mmol/L (8-16); BILIRUBIN - TOTAL 0.47 mg/dL (0.2-1.3); CALCIUM 9.1 mg/dL (8.5-10.1); CARBON DIOXIDE 33.6 mmol/L (21.0-32.0); CREATININE - SERUM 0.9 mg/dL (0.6-1.3); POTASSIUM - SERUM 4.7 mmol/L (3.5-5.1); PROTEIN - SERUM 5.6 g/dL (6.4-8.2)
--- NOTE | 2017-06-10 08:01 | NUR ---
PT IS LYING IN BED WITH HOB AT 30. O2 IS BACK UP TO 96%. EVEN RISE AND FALL OF CHEST, EYES CLOSED NO SIGNS OF DISTRESS, CONTINUE WITH PLAN OF CARE
--- NOTE | 2017-06-10 09:05 | NUR ---
PATIENT SITTING UP IN BED TAKING MEDS AT THIS TIME. VAPOTHERM ON. PATIENT STATED SHE IS FEELING BETTER. IV INTACT. FIXED INCOME TRADING VICE PRESIDENT AT BEDSIDE. CALL LIGHT WITHIN REACH.
[2017-06-10 09:31] VITALS: BP 165/85
[2017-06-10 11:33] VITALS: BP 146/57
--- NOTE | 2017-06-10 12:46 | NUR ---
JANETTE NOTE: JANETTE SPOKE WITH KELSEY REGARDING AVAILABILITY OF A BED. KELSEY STATED WE HAVE NO BEDS AVAILABLE. JANETTE WILL CALL TOMORROW.
--- NOTE | 2017-06-10 14:32 | NUR ---
SUPPLIED PATIENTS NC WITH EAR PADS FOR TUBING. AREA BEHIND EAR IS REDDENED AND SORE. RN NOTIFIED.
--- NOTE | 2017-06-10 14:33 | NUR ---
PT SKIN BEHIND EARS ARE STARTING TO BREAKDOWN, ORDERED NEOSPORIN TO APPLY TO BOTH AREAS
[2017-06-10 16:34] VITALS: BP 145/60
[2017-06-10 20:00] VITALS: BP 155/80
--- NOTE | 2017-06-10 20:07 | NUR ---
PATIENT IS AWAKE, ALERT AND ORIENTED X'S 4. PATIENT IS RECIEVING OXYGEN VIA VAPOTHERM 40 LPM, AT 45%. PATIENT IS SNACKING AND WATCHING TV. SHE DENIES NEEDS AT THIS TIME. BED IN LOWEST POSITION, CALL LIGHT IN REACH. BED RAILS UP X'S 2.
[2017-06-11] VITALS: BP 148/79
--- NOTE | 2017-06-11 02:10 | NUR ---
SPOKE WITH MICHAEL HOOD FROM [facility], SHE REQUESTED THE PROGRESS NOTES FROM TODAY. FAXING THEM NOW.
[2017-06-11 04:00] VITALS: BP 146/71
[2017-06-11 06:44] LABS: ALBUMIN 2.7 g/dL (3.4-5.0); ALKALINE PHOSPHATASE 82 U/L (46-116); ALT (SGPT) 27 U/L (10-68); BILIRUBIN - TOTAL 0.53 mg/dL (0.2-1.3); CALC OSMOLALITY 285 mosm/kg (275-300); CALCIUM 8.9 mg/dL (8.5-10.1); CARBON DIOXIDE 34.6 mmol/L (21.0-32.0); CHLORIDE - SERUM 98 mmol/L (98-107); CREATININE - SERUM 0.7 mg/dL (0.6-1.3); POTASSIUM - SERUM 5.1 mmol/L (3.5-5.1); PROTEIN - SERUM 6.1 g/dL (6.4-8.2); SODIUM 139 mmol/L (136-145); UREA NITROGEN 31 mg/dL (7-18); eGFR NON AFRICAN AMERICAN > 90 mL/min (90-120)
[2017-06-11 06:45] LABS: GLUCOSE 124 mg/dL (74-106)
--- NOTE | 2017-06-11 06:52 | NUR ---
PATIENT IS ON VAPOTHERM 40LPM, 45%. OXYGEN SATURATION 80%. PAGED . RT IN ROOM. SEE ORDERS. PATIENT IS NOT SHOWING ANY SIGNS OF DISTRESS AT THIS TIME. SHE IS TALKING AND SMILING.
[2017-06-11 07:23] LABS: BASOPHILS 0 % (0-2); EOSINOPHILS 0 % (0-7); HEMATOCRIT 34.5 % (36.0-48.0); HEMOGLOBIN 11.1 g/dL (12-16); IMMATURE GRANULOCYTES 0.9 % (0-5); LYMPHOCYTES 9.2 % (15-50); MCHC 32.2 g/dL (31.0-37.0); MCV 99.4 fL (80.0-100.0); MEAN PLATELET VOLUME 10.3 fL (7.4-10.4); MONOCYTES 5.8 % (2-11); NEUTROPHILS 84.1 % (40-80); PLATELET COUNT 496 10x3/uL (130-400); RBC 3.47 10x6/uL (4.00-5.40); RDW 16.3 % (11.5-14.5); WBC 14.2 10x3/uL (4.8-10.8)
[2017-06-11 07:58] VITALS: BP 152/79
[2017-06-11 12:11] VITALS: BP 148/86
--- NOTE | 2017-06-11 15:14 | NUR ---
PATIENT IN BED WITH NO COMPLAINTS AT HTIS TIME. IV INTACT. CALL LIGHT WITHN REACH.
[2017-06-11 15:42] VITALS: BP 135/77
--- NOTE | 2017-06-11 17:55 | NUR ---
PT IS SITTING ON SIDE OF BED, BED IS IN LOW POSITION, CL IN REACH, SKIN BEHIND EARS IS STILL A LTTLE RED, CONTINUING TO USE TRIPLE ANTIBIOTIC CREAM, NO OTHER NEEDS AT THIS TIME
--- NOTE | 2017-06-11 19:00 | NUR ---
REPORT RECEIVED AND CARE OF PT ASSUMED. PT LYING IN SEMI JACOBSON'S POSITION WITH EYES CLOSED. VAPOTHERM AT 40 L IN USE AND SPO2 99% AT THIS ASSESSMENT. JUAREZ CATHETER DRAINING TO GRAVITY WITH YELLOW URINE IN COLLECTION BAG. LEFT PORT ACCESSED WITH LR INFUSING AT 10 ML / HR, AND SENIOR SALES OPERATIONS ANALYST / DILAUDID IN USE FOR PAIN CONTROL. WILL MONITOR FOR NEEDS.
--- NOTE | 2017-06-11 20:50 | NUR ---
HS MEDICATIONS GIVEN. FSBS THIS CHECK 57 REQUIRING NO COVERAGE PER SLIDING SCALE. GAVE SNACK OF ICE CREAM, EMELYN CRACKERS AND PEANUT BUTTER. WILL CONTINUE TO MONITOR FOR NEEDS.
[2017-06-11 21:49] VITALS: BP 161/87
--- NOTE | 2017-06-12 00:44 | NUR ---
FSBS 366 THIS CHECK. PT WANTS TO WAIT TILL 0400 CHECK FOR COVERAGE, IT WAS 57 4 HOURS AGO....AFRAID OF BOTTOMING OUT AGAIN.
--- NOTE | 2017-06-12 00:56 | NUR ---
FSBS 366 THIS CHECK REQUIRING COVERAGE WITH 24 UNITS OF HUMALOG PER SLIDING SCALE. PT HESITANT TO RECEIVE INSULIN WITHOUT A SNACK...GAVE ICE CREAM AND PEANUT BUTTER AND CRACKERS. WILL CONTINUE TO MONITOR CLOSELY.
--- NOTE | 2017-06-12 00:57 | NUR ---
GAVE 0.4 BOLUS OF DILAUDID VIA SINGLE STROKE PREFORMER PUMP PER PT REQUEST FOR PAIN AT LEVEL 8/10. WILL CONTINUE TO MONITOR FOR NEEDS.
[2017-06-12 01:03] VITALS: BP 143/76
--- NOTE | 2017-06-12 04:15 | NUR ---
FSBS 71 THIS CHECK. GAVE APPLE JUICE. NO COVERAGE PER SLIDING SCALE.
--- NOTE | 2017-06-12 04:57 | NUR ---
CHANDNI BLOOD FROM [facility] FOR LABS. DELIVERED TO SAFETY AND HEALTH MANAGER.
[2017-06-12 05:24] VITALS: BP 134/63
[2017-06-12 05:56] LABS: BASOPHILS 0 % (0-2); EOSINOPHILS 0 % (0-7); HEMATOCRIT 32.9 % (36.0-48.0); HEMOGLOBIN 10.7 g/dL (12-16); LYMPHOCYTES 6.6 % (15-50); MCH 32.5 pg (26.0-34.0); MCHC 32.5 g/dL (31.0-37.0); MEAN PLATELET VOLUME 10.3 fL (7.4-10.4); NEUTROPHILS 83.4 % (40-80); PLATELET COUNT 453 10x3/uL (130-400); RBC 3.29 10x6/uL (4.00-5.40); RDW 16.1 % (11.5-14.5); WBC 14.4 10x3/uL (4.8-10.8)
[2017-06-12 06:01] LABS: ALBUMIN 2.6 g/dL (3.4-5.0); ALKALINE PHOSPHATASE 78 U/L (46-116); ALT (SGPT) 26 U/L (10-68); CALC OSMOLALITY 285 mosm/kg (275-300); CALCIUM 9.4 mg/dL (8.5-10.1); CHLORIDE - SERUM 100 mmol/L (98-107); CREATININE - SERUM 0.8 mg/dL (0.6-1.3); POTASSIUM - SERUM 4.6 mmol/L (3.5-5.1); PROTEIN - SERUM 5.4 g/dL (6.4-8.2); SODIUM 141 mmol/L (136-145); UREA NITROGEN 33 mg/dL (7-18); eGFR NON AFRICAN AMERICAN 81 mL/min (90-120)
[2017-06-12 06:02] LABS: GLUCOSE 62 mg/dL (74-106)
--- NOTE | 2017-06-12 07:00 | NUR ---
REPORT RECIEVED ASSUMED CARE. PATIENT IN BED WITH IV INTACT. NO COMPLAINTS. CALL LIGHT WITHIN REACH.
[2017-06-12 08:26] VITALS: BP 163/73
--- NOTE | 2017-06-12 13:00 | NUR ---
PATIENT UP TO CHAIR WITH PT. NO COMPLAINTS AT THIS TIME. IV INTACT. CALL LIGHT WITHIN REACH.
[2017-06-12 13:03] VITALS: BP 125/77
--- NOTE | 2017-06-12 15:19 | NUR ---
LATE ENTRY FOR 7TH: [facility] STATED NO BEDS AVAILABLE ON THIS DAY
--- NOTE | 2017-06-12 15:21 | NUR ---
JANETTE SPOKE WITH DR. RÍOS REGARDING NO BEDS AT [facility]. DR. RÍOS STATED SHE WAS FINE HERE FOR THE WEEKEND AND THEN TALK WITH DR. PEDERSON ON THURSDAY TO SEE IF HE WANTS A CONSULT TO ANOTHER HOSPITAL.
--- NOTE | 2017-06-12 15:45 | NUR ---
PATIENT BACK IN BED WITH EYES CLOSED RESTING QUIETLY. IV INTACT. CALL LIGHT WITHIN REACH.
[2017-06-12 16:10] VITALS: BP 121/74
--- NOTE | 2017-06-12 17:45 | NUR ---
PATIENT BACK TO BED WITH IV INTACT. JUAREZ REMOVED ORDERED. REPORT CALLED TO REHAB. WILL TAKE PATIENT DOWN WHEN DC DONE.
--- NOTE | 2017-06-12 18:13 | NUR ---
PATIENT IN BED WITH IV INTACT. NO COMPLAINTS AT THIS TIME. JUAREZ REMOVED ORDERED. REPORT CALLED AT 1650 TO REHAB. WILL TAKE PATIENT SOON ABLE TO DO DC. PATIENT IN BED WITH EYES CLOSED RESTING. CALL LIGHT WITHIN REACH.
--- NOTE | 2017-06-12 18:34 | NUR ---
PATIENT IN BED WITH IV INTACT. NO COMPLAINTS. CALL LIGHT WITHIN REACH. AWAIT DC TO REHAB.
[2017-06-12 20:00] VITALS: BP 137/73
[2017-06-13] VITALS: BP 182/79
--- NOTE | 2017-06-13 03:00 | NUR ---
PT RESTING QUIETLY, EYES CLOSED. RESP EASY, UNLABORED. NO DISTRESS NOTED. CONTINUE CONSTRUCTION PROJECT ADMINISTRATOR'S PLAN OF CARE.
[2017-06-13 04:00] VITALS: BP 143/72
[2017-06-13 04:55] LABS: BASOPHILS 0 % (0-2); EOSINOPHILS 0 % (0-7); HEMATOCRIT 33.1 % (36.0-48.0); HEMOGLOBIN 10.9 g/dL (12-16); IMMATURE GRANULOCYTES 0.8 % (0-5); LYMPHOCYTES 5.9 % (15-50); MCH 32.8 pg (26.0-34.0); MCHC 32.9 g/dL (31.0-37.0); MCV 99.7 fL (80.0-100.0); MEAN PLATELET VOLUME 9.7 fL (7.4-10.4); NEUTROPHILS 89.3 % (40-80); PLATELET COUNT 398 10x3/uL (130-400); RBC 3.32 10x6/uL (4.00-5.40); RDW 16.3 % (11.5-14.5); WBC 14.7 10x3/uL (4.8-10.8)
[2017-06-13 05:23] LABS: ALBUMIN 2.6 g/dL (3.4-5.0); ALKALINE PHOSPHATASE 88 U/L (46-116); ALT (SGPT) 25 U/L (10-68); BILIRUBIN - TOTAL 0.37 mg/dL (0.2-1.3); CALC OSMOLALITY 295 mosm/kg (275-300); CARBON DIOXIDE 36.5 mmol/L (21.0-32.0); CHLORIDE - SERUM 99 mmol/L (98-107); CREATININE - SERUM 0.8 mg/dL (0.6-1.3); POTASSIUM - SERUM 4.7 mmol/L (3.5-5.1); PROTEIN - SERUM 5.6 g/dL (6.4-8.2); SODIUM 141 mmol/L (136-145); UREA NITROGEN 36 mg/dL (7-18); eGFR NON AFRICAN AMERICAN 81 mL/min (90-120)
[2017-06-13 05:24] LABS: GLUCOSE 226 mg/dL (74-106)
--- NOTE | 2017-06-13 09:22 | NUR ---
REC'D SITTING UP IN BED. ALERT AND ORIENTED X4. REPORTED PAIN 8/10. IS WANTING A BOLUS OF HER MEDS. WILL ADMIN PRESCRIBED. DENIED NEEDS AT THIS TIME. INSTRUCTED TO CALL IF NEEDED ANYTHING, VERBALIZED UNDERSTANDING. NO DISTRESS NOTED. WILL CONT TO MONITOR. BED LOW, LOCKED, CALL LIGHT IN REACH.
[2017-06-13 10:52] VITALS: BP 148/79
[2017-06-13 12:53] VITALS: BP 146/74
--- NOTE | 2017-06-13 19:00 | NUR ---
REPORT RECEIVED AND CARE OF PT ASSUMED. PT SITTING UP IN BED WATCHING TV. LEFT PORT PATENT WITH LR INFUSING AT 10 ML / HR. BANKRUPTCY LEGAL ASSISTANT / DILAUDID IN USE FOR PAIN CONTROL. TELEMETRY IN USE AND READING 81 SR AT THIS ASSESSMENT. JUAREZ CATHETER DRAINING TO GRAVITY WITH YELLOW URINE IN COLLECTION BAG. WILL MONITOR FOR NEEDS.
[2017-06-13 20:00] VITALS: BP 125/75
--- NOTE | 2017-06-13 20:30 | NUR ---
GAVE 0.4 BOLUS OF DILAUDID VIA CYLINDER INSPECTOR AND TESTER PUMP. WILL MONITOR FOR EFFECTIVENESS.
--- NOTE | 2017-06-13 20:35 | NUR ---
HS MEDICATIONS GIVEN. FSBS 247 THIS CHECK REQUIRING COVERAGE WITH 12 UNITS OF INSULIN PER SLIDING SCALE. WILL CONTINUE TO MONITOR FOR NEEDS.
--- NOTE | 2017-06-13 20:40 | NUR ---
GAVE HS SNACK OF EMELYN CRACKERS, PEANUT BUTTER AND APPLE JUICE. PT LATER REQUESTED ICE CREAM. WILL CONTINUE TO MONITOR FOR NEEDS.
[2017-06-14] VITALS: BP 125/70
--- NOTE | 2017-06-14 00:28 | NUR ---
GAVE BOLUS OF DILAUDID 0.4 MG VIA TAPPING MACHINE OPERATOR PUMP PER PT REQUEST FOR BREAK-THROUGH PAIN.
--- NOTE | 2017-06-14 02:00 | NUR ---
RECEIVED CALL FROM MARQUITA AT [facility] REQUESTING UPDATE ON PT, AND REQUESTING ME TO FAX LATEST XRAY RESULTS AND MOST RECENT PROGRESS NOTES. FAXED AND COPIES OF WHAT WAS SENT IS IN CHART.
--- NOTE | 2017-06-14 03:00 | NUR ---
PT ASSISTED UP TO USE BSC FOR BM. POSITIONED BACK IN BED FOR COMFORT.
--- NOTE | 2017-06-14 03:28 | NUR ---
GAVE 0.4 DILAUDID BOLUS PER PT REQUEST FOR BREAK-THROUGH PAIN. WILL CONTINUE TO MONITOR FOR NEEDS.
[2017-06-14 04:00] VITALS: BP 139/76
--- NOTE | 2017-06-14 05:00 | NUR ---
FSBS THIS CHECK 320 REQUIRING COVERAGE WITH 20 UNITS OF INSULIN PER SLIDING SCALE.
[2017-06-14 06:02] LABS: BASOPHILS 0 % (0-2); EOSINOPHILS 0 % (0-7); HEMOGLOBIN 10.4 g/dL (12-16); IMMATURE GRANULOCYTES 0.6 % (0-5); MCH 32.4 pg (26.0-34.0); MCHC 32.5 g/dL (31.0-37.0); MCV 99.7 fL (80.0-100.0); MEAN PLATELET VOLUME 10.3 fL (7.4-10.4); NEUTROPHILS 89.4 % (40-80); PLATELET COUNT 378 10x3/uL (130-400); RBC 3.21 10x6/uL (4.00-5.40); RDW 16.2 % (11.5-14.5); WBC 14.9 10x3/uL (4.8-10.8)
[2017-06-14 06:24] LABS: ALBUMIN 2.6 g/dL (3.4-5.0); ALKALINE PHOSPHATASE 77 U/L (46-116); ALT (SGPT) 25 U/L (10-68); BILIRUBIN - TOTAL 0.34 mg/dL (0.2-1.3); CALC OSMOLALITY 292 mosm/kg (275-300); CALCIUM 8.8 mg/dL (8.5-10.1); CARBON DIOXIDE 35.5 mmol/L (21.0-32.0); CHLORIDE - SERUM 95 mmol/L (98-107); CREATININE - SERUM 0.8 mg/dL (0.6-1.3); GLUCOSE 326 mg/dL (74-106); POTASSIUM - SERUM 4.9 mmol/L (3.5-5.1); PROTEIN - SERUM 5.4 g/dL (6.4-8.2); SODIUM 136 mmol/L (136-145); UREA NITROGEN 36 mg/dL (7-18); eGFR NON AFRICAN AMERICAN 81 mL/min (90-120)
--- NOTE | 2017-06-14 10:45 | NUR ---
REC'D SITTING UP IN BED. ALERT AND ORIENTED X4. REPORTED PAIN 10/10. NO DISTRESS NOTED. INSTRUCTED TO CALL IF NEEDED ANYTHING, VERBALIZED UNDERSTANDING. BED LOW, LOCKED, CALL LIGHT IN REACH.
[2017-06-14 11:04] VITALS: BP 131/72
[2017-06-14 13:32] VITALS: BP 133/71
--- NOTE | 2017-06-14 19:00 | NUR ---
REPORT RECEIEVED AND CARE OF PT ASSUMED. PT LYING IN SEMI JACOBSON'S POSITION WITH EYES CLOSED. O2 @ 9L IN USE VIA OXYMIZER. TELEMETRY IN PLACE AND READING SR AT THIS ASSESSMENS. JUAREZ CATHETER DRAINING TO GRAVITY WITH YELLOW URINE IN COLLECTION BAG. LEFT PORT ACCESSED WITH LR INFUSING AT 10 ML / HR AND HOME ECONOMICS TEACHER W/ DILAUDID IN USE FOR PAIN CONTROL. WILL MONITOR [place] FOR NEEDS. CALL LIGHT WITHIN REACH.
[2017-06-14 20:00] VITALS: BP 104/65
--- NOTE | 2017-06-14 20:15 | NUR ---
GAVE FLEXERIL PER PRN ORDER, AND BOLUSED 0.4 MG DILAUDID VIA BRIDGE RIGGER PUMP PER PT REQUEST. WILL MONITOR FOR EFFECTIVENESS. CALL LIGHT WITHIN REACH.
--- NOTE | 2017-06-14 20:20 | NUR ---
HS MEDICATIONS GIVEN. FSBS 178 THIS CHECK REQUIRING COVERAGE WITH 8 UNITS OF INSULIN PER SLIDING SCALE. WILL CONTINUE TO MONITOR FOR NEEDS.
--- NOTE | 2017-06-14 20:25 | NUR ---
HS SNACK PROVIDED: VANILLA ICE CREAM, EMELYN CRACKERS, PEANUT BUTTER, AND APPLE JUICE. WILL CONTINUE TO MONITOR FOR NEEDS.
--- NOTE | 2017-06-14 23:00 | NUR ---
GAVE BOLUS OF DILAUDID 0.4 MG VIA ENDOSCOPY REGISTERED NURSE PER PT REQUEST FOR BREAKTHROUGH PAIN. WILL CONTINUE TO MONITOR FOR NEEDS.
--- NOTE | 2017-06-15 02:00 | NUR ---
GAVE BOLUS OF DILAUDID 0.4 MG VIA EARTH MOVING MACHINE OPERATOR PUMP PER PT REQUEST FOR PAIN AT LEVEL 9/10. WILL MONITOR FOR EFFECTIVENESS.
--- NOTE | 2017-06-15 02:15 | NUR ---
PT UP TO BSC FOR LARGE BM.
[2017-06-15 04:00] VITALS: BP 95/61
--- NOTE | 2017-06-15 04:45 | NUR ---
CHANDNI BLOOD FROM [facility] FOR AM LABS AND DELIVERED TO STOCK PULLER. FSBS THIS CHECK 431 REQUIRING COVERAGE WITH 28 UNITS OF INSULIN PER SLIDING SCALE.
[2017-06-15 05:08] LABS: BASOPHILS 0 % (0-2); EOSINOPHILS 0 % (0-7); HEMATOCRIT 31.8 % (36.0-48.0); HEMOGLOBIN 10.5 g/dL (12-16); IMMATURE GRANULOCYTES 0.8 % (0-5); LYMPHOCYTES 2.7 % (15-50); MCH 32.9 pg (26.0-34.0); MCV 99.7 fL (80.0-100.0); MEAN PLATELET VOLUME 9.9 fL (7.4-10.4); MONOCYTES 3.8 % (2-11); NEUTROPHILS 92.7 % (40-80); PLATELET COUNT 325 10x3/uL (130-400); RBC 3.19 10x6/uL (4.00-5.40); RDW 16.2 % (11.5-14.5); WBC 14.4 10x3/uL (4.8-10.8)
[2017-06-15 05:30] LABS: ALBUMIN 2.6 g/dL (3.4-5.0); ANION GAP 11.9 mmol/L (8-16); BILIRUBIN - TOTAL 0.34 mg/dL (0.2-1.3); CREATININE - SERUM 0.9 mg/dL (0.6-1.3); POTASSIUM - SERUM 4.9 mmol/L (3.5-5.1); PROTEIN - SERUM 5.3 g/dL (6.4-8.2)
--- NOTE | 2017-06-15 05:36 | NUR ---
GAVE DILAUDID BOLUS 0.4 VIA PARA MACHINE OPERATOR AND ZANAFLEX 4 MG PO PER PT REQUEST FOR PAIN. WILL MONITOR FOR EFFECTIVENESS.
--- NOTE | 2017-06-15 07:35 | NUR ---
PT AOX4 RESP EVEN AND NONLABORED PT DENIES NEEDS AT THIS TIME IV TO LEFT INFUSIPORT PATENT AND INTACT AT THIS TIME SRX2 BED AT LOWEST SETTING CALL LIGHT WITHIN REACH WILL CONTINUE TO MONITOR
[2017-06-15 09:33] VITALS: BP 87/47
[2017-06-15 13:03] VITALS: BP 171/66
--- NOTE | 2017-06-15 14:57 | NUR ---
NUTRITION F/U CHART REVIEWED. PT TOLERATING ADA DIET WITH GOOD INTAKE RECENT MEALS. WILL CONTINUE TO PROVIDE DIET, MONITOR INTAKE. RD FOLLOWING
[2017-06-15 16:32] VITALS: BP 129/70
--- NOTE | 2017-06-15 20:00 | NUR ---
REC'D PHONE CALL FROM [facility] IN [place], [place]. BED IS AVAILABLE FOR PATIENT ON F 619. REPORT CALLED TO [facility] FLOOR F. NOTIFIED NIRANJAN LUNA OF TRANSFER.ASSESSMENT PER FLOWSHEET. IV PATENT LEFT INFUASPORT OF LR AT 10CC'S/HR SIDEWALK INSPECTOR OF DILAUDID WITH SETTINGS AT 0.4MG Q10MIN W/4MG Q4HR L/O. JUAREZ TO BEDSIDE DRAINAGE WITH YELLOW URINE.O2 ON AT 9L'M PER OXIMIZER. NO DISTRESS NOTED.
--- NOTE | 2017-06-15 20:15 | NUR ---
LATE ENTRY 1038 CM RECEIVED TELEPHONE CALL FROM [facility]. UPDATED PROVIDED. NO AVAILABLE BED AT THAT TIME. PATIENT REMAINS ON LIST. WILL CONSIDER POSSIBLE TRANSFER TO ANOTHER FACILITY. WILL DISCUSS W/ DR PEDERSON. 1714 DR PEDERSON VISITED. ADVISED HIM OF STATUS. WILL DISCUSS OTHER POSSIBLE CARE SITES IE [facility] OR [facility]. 1999 CALL RECEIVED FROM [facility]. CAN TRANSFER PATIENT TONIGHT. CHART UPDATED. X/R DISC W/ CHART. REQUESTED CXR UPDATED FILMS. PCS FORM COMPLETED. COBRA FORM TO BE COMPLETED. TELEPHONED NURSING CLOUD SOLUTIONS ARCHITECT, JURGEN. ADVISED OF ACCEPTANCE. TC TO [employer]. SPOKE WITH BRISSA. INFORMATION PROVIDED. TWO AMBULANCES OUT OF THE [facility] NOW. WILL BE APPROXIMATELY AN HOUR. ADVISED PRIMARY NURSE, BUD. BUD TO CALL REPORT. SHE WILL OBTAIN ACCEPTING MD'S NAME. PATIENT ASSIGNED TO RM [id number].
--- NOTE | 2017-06-15 21:15 | NUR ---
MEDS GIVEN PER MAR. FSBS= 309 20 UNITS HUMALOG INSULIN GIVEN SUBC PER S/S.
--- NOTE | 2017-06-15 22:20 | NUR ---
[facility] HERE TO TRANSPORT PATIENT TO [facility].
== END 2017-06-15 22:20 | disposition short-term general hospital (02) | DRG 438 ==
LOC: D.ER 16:54 → D.MS 19:38 → D.ICU 19:38 → D.MS 06-05 16:00
PROVIDERS: Family Medicine; Family Medicine Adult Medicine; Internal Medicine Pulmonary Disease; ADMIT Emergency Medicine
DX: K85.90 Acute pancreatitis without necrosis or infection, unspecified (principal); J96.01 Acute respiratory failure with hypoxia; J69.0 Pneumonitis due to inhalation of food and vomit; I50.33 Acute on chronic diastolic (congestive) heart failure; J44.1 Chronic obstructive pulmonary disease with (acute) exacerbation; F17.213 Nicotine dependence, cigarettes, with withdrawal; M35.1 Other overlap syndromes; D80.3 Selective deficiency of immunoglobulin G [IgG] subclasses; E87.1 Hypo-osmolality and hyponatremia; K86.1 Other chronic pancreatitis; I11.0 Hypertensive heart disease with heart failure; G89.29 Other chronic pain; K21.9 Gastro-esophageal reflux disease without esophagitis; D64.9 Anemia, unspecified; I27.20 Pulmonary hypertension, unspecified; F41.9 Anxiety disorder, unspecified; E11.40 Type 2 diabetes mellitus with diabetic neuropathy, unspecified; R13.10 Dysphagia, unspecified; R00.0 Tachycardia, unspecified; M06.9 Rheumatoid arthritis, unspecified; E87.6 Hypokalemia; I34.0 Nonrheumatic mitral (valve) insufficiency; E83.42 Hypomagnesemia; E87.5 Hyperkalemia

== ENCOUNTER 2017-07-07 04:41 | Inpatient (IN) | payer MEDICARE ==
[~2017-07-07] VITALS: Ht 170.2 cm; Wt 75.0 kg
[2017-07-07 06:25] LABS: BASOPHILS 0.2 % (0-2); EOSINOPHILS 0 % (0-7); HEMATOCRIT 36.4 % (36.0-48.0); HEMOGLOBIN 11.4 g/dL (12-16); IMMATURE GRANULOCYTES 3.3 % (0-5); LYMPHOCYTES 31.5 % (15-50); MCH 31.7 pg (26.0-34.0); MCHC 31.3 g/dL (31.0-37.0); MCV 101.1 fL (80.0-100.0); MEAN PLATELET VOLUME 9.4 fL (7.4-10.4); MONOCYTES 14.7 % (2-11); NEUTROPHILS 50.3 % (40-80); PLATELET COUNT 388 10x3/uL (130-400); RDW 17.6 % (11.5-14.5); WBC 12.3 10x3/uL (4.8-10.8)
[2017-07-07 06:35] LABS: APPEARANCE CLEAR (CLEAR); BILIRUBIN NEGATIVE (NEGATIVE); COLOR DK YELLOW (YELLOW); GLUCOSE NEGATIVE (NEGATIVE); KETONE SMALL mg/dL (NEGATIVE); NITRITE NEGATIVE (NEGATIVE); PROTEIN NEGATIVE (NEGATIVE); SPECIFIC GRAVITY 1.015 (1.005-1.020); UROBILINOGEN NORMAL (NORMAL)
[2017-07-07 06:53] LABS: ALBUMIN 2.4 g/dL (3.4-5.0); ALKALINE PHOSPHATASE 185 U/L (46-116); ALT (SGPT) 20 U/L (10-68); BILIRUBIN - TOTAL 0.42 mg/dL (0.2-1.3); CALC OSMOLALITY 289 mosm/kg (275-300); CALCIUM 9.2 mg/dL (8.5-10.1); CARBON DIOXIDE 28.5 mmol/L (21.0-32.0); CHLORIDE - SERUM 105 mmol/L (98-107); CREATININE - SERUM 0.6 mg/dL (0.6-1.3); GLUCOSE 103 mg/dL (74-106); LIPASE 42 U/L (73-393); POTASSIUM - SERUM 3.4 mmol/L (3.5-5.1); PROTEIN - SERUM 6.6 g/dL (6.4-8.2); SODIUM 147 mmol/L (136-145); TROPONIN-I < 0.017 ng/mL (0.000-0.060); UREA NITROGEN 8 mg/dL (7-18); eGFR NON AFRICAN AMERICAN > 90 mL/min (90-120)
[2017-07-07 22:33] VITALS: BP 132/65
[2017-07-08 00:54] VITALS: BP 132/65; BMI 27.0
[2017-07-08 04:40] VITALS: BP 149/76
[2017-07-08 07:57] VITALS: BP 147/87
[2017-07-08 11:19] VITALS: BP 136/86
[2017-07-08 15:54] VITALS: BP 155/104
[2017-07-08 21:44] VITALS: BP 123/64
[2017-07-09 04:47] VITALS: BP 119/62
[2017-07-09 06:46] LABS: MAGNESIUM - SERUM 1.3 mg/dL (1.8-2.4); PHOSPHOROUS 3.9 mg/dL (2.5-4.9)
[2017-07-09 06:58] LABS: BASOPHILS 0.7 % (0-2); EOSINOPHILS 0.5 % (0-7); IMMATURE GRANULOCYTES 6.5 % (0-5); LYMPHOCYTES 30.8 % (15-50); MCH 31.7 pg (26.0-34.0); MCHC 32.1 g/dL (31.0-37.0); MEAN PLATELET VOLUME 9.5 fL (7.4-10.4); MONOCYTES 13.4 % (2-11); NEUTROPHILS 48.1 % (40-80); PLATELET COUNT 333 10x3/uL (130-400); RDW 17.5 % (11.5-14.5); WBC 10.8 10x3/uL (4.8-10.8)
[2017-07-09 06:59] LABS: HEMATOCRIT 24.9 % (36.0-48.0); MCV 98.8 fL (80.0-100.0); RBC 2.52 10x6/uL (4.00-5.40)
[2017-07-09 07:49] VITALS: BP 145/77
[2017-07-09 11:48] VITALS: BP 130/78
[2017-07-09 16:18] VITALS: BP 133/78
[2017-07-09 21:03] VITALS: BP 118/71
[2017-07-10 04:49] VITALS: BP 110/56
[2017-07-10 05:49] LABS: BASOPHILS 0.2 % (0-2); EOSINOPHILS 0 % (0-7); HEMATOCRIT 28.1 % (36.0-48.0); IMMATURE GRANULOCYTES 5.9 % (0-5); LYMPHOCYTES 26.1 % (15-50); MCH 31.6 pg (26.0-34.0); MCV 98.6 fL (80.0-100.0); MEAN PLATELET VOLUME 9.6 fL (7.4-10.4); MONOCYTES 13.7 % (2-11); NEUTROPHILS 54.1 % (40-80); PLATELET COUNT 304 10x3/uL (130-400); RBC 2.85 10x6/uL (4.00-5.40); RDW 16.8 % (11.5-14.5); WBC 11.1 10x3/uL (4.8-10.8)
[2017-07-10 06:07] LABS: CALC OSMOLALITY 276 mosm/kg (275-300); CALCIUM 8.3 mg/dL (8.5-10.1); CHLORIDE - SERUM 102 mmol/L (98-107); CREATININE - SERUM 0.5 mg/dL (0.6-1.3); SODIUM 138 mmol/L (136-145); UREA NITROGEN 4 mg/dL (7-18); eGFR NON AFRICAN AMERICAN > 90 mL/min (90-120)
[2017-07-10 06:13] LABS: GLUCOSE 166 mg/dL (74-106)
[2017-07-10 08:01] VITALS: BP 133/84
[2017-07-10 12:33] VITALS: BP 125/61
[2017-07-10 16:06] VITALS: BP 120/60
[2017-07-10 19:00] VITALS: BP 143/75
[2017-07-11 04:00] VITALS: BP 151/84
[2017-07-11 07:02] LABS: CALCIUM 8.3 mg/dL (8.5-10.1); CARBON DIOXIDE 28.9 mmol/L (21.0-32.0); CHLORIDE - SERUM 108 mmol/L (98-107); MAGNESIUM - SERUM 1.7 mg/dL (1.8-2.4); POTASSIUM - SERUM 3.4 mmol/L (3.5-5.1); SODIUM 143 mmol/L (136-145)
[2017-07-11 07:12] LABS: CALC OSMOLALITY 282 mosm/kg (275-300); CREATININE - SERUM 0.7 mg/dL (0.6-1.3); GLUCOSE 102 mg/dL (74-106); UREA NITROGEN 7 mg/dL (7-18); eGFR NON AFRICAN AMERICAN > 90 mL/min (90-120)
[2017-07-11 07:16] LABS: BASOPHILS 0.2 % (0-2); EOSINOPHILS 0.1 % (0-7); HEMATOCRIT 25.2 % (36.0-48.0); IMMATURE GRANULOCYTES 4.1 % (0-5); LYMPHOCYTES 25.9 % (15-50); MCH 31.7 pg (26.0-34.0); MCHC 31.7 g/dL (31.0-37.0); MEAN PLATELET VOLUME 9.6 fL (7.4-10.4); MONOCYTES 14.6 % (2-11); NEUTROPHILS 55.1 % (40-80); PLATELET COUNT 357 10x3/uL (130-400); RBC 2.52 10x6/uL (4.00-5.40); RDW 17.1 % (11.5-14.5); WBC 12.4 10x3/uL (4.8-10.8)
[2017-07-11 07:43] VITALS: BP 129/69
[2017-07-11 11:53] VITALS: BP 143/77
[2017-07-11 15:52] VITALS: BP 137/74
[2017-07-11 21:26] VITALS: BP 133/71
[2017-07-12 01:29] VITALS: BP 140/77
[2017-07-12 06:48] LABS: BASOPHILS 0.2 % (0-2); EOSINOPHILS 0 % (0-7); HEMATOCRIT 27.3 % (36.0-48.0); HEMOGLOBIN 8.6 g/dL (12-16); IMMATURE GRANULOCYTES 5.3 % (0-5); LYMPHOCYTES 26.8 % (15-50); MCHC 31.5 g/dL (31.0-37.0); MCV 98.6 fL (80.0-100.0); MEAN PLATELET VOLUME 9.7 fL (7.4-10.4); MONOCYTES 14.4 % (2-11); NEUTROPHILS 53.3 % (40-80); PLATELET COUNT 289 10x3/uL (130-400); RBC 2.77 10x6/uL (4.00-5.40); RDW 17.1 % (11.5-14.5); WBC 15.2 10x3/uL (4.8-10.8)
[2017-07-12 06:55] LABS: CALC OSMOLALITY 287 mosm/kg (275-300); CALCIUM 8.9 mg/dL (8.5-10.1); CARBON DIOXIDE 29.3 mmol/L (21.0-32.0); CHLORIDE - SERUM 109 mmol/L (98-107); GLUCOSE 110 mg/dL (74-106); POTASSIUM - SERUM 4.3 mmol/L (3.5-5.1); SODIUM 145 mmol/L (136-145); UREA NITROGEN 6 mg/dL (7-18)
[2017-07-12 06:59] LABS: CREATININE - SERUM 0.5 mg/dL (0.6-1.3); eGFR NON AFRICAN AMERICAN > 90 mL/min (90-120)
[2017-07-12 08:22] VITALS: BP 142/79
[2017-07-12 12:55] VITALS: BP 124/84
[2017-07-12 16:25] VITALS: BP 134/78
[2017-07-12 21:27] VITALS: BP 131/68
[2017-07-13 01:46] VITALS: BP 134/73
[2017-07-13 05:40] VITALS: BP 155/87
[2017-07-13 06:20] LABS: BASOPHILS 0.2 % (0-2); EOSINOPHILS 0.1 % (0-7); HEMATOCRIT 27.6 % (36.0-48.0); HEMOGLOBIN 8.7 g/dL (12-16); IMMATURE GRANULOCYTES 5.3 % (0-5); LYMPHOCYTES 30.2 % (15-50); MCH 31.5 pg (26.0-34.0); MCHC 31.5 g/dL (31.0-37.0); MEAN PLATELET VOLUME 9.3 fL (7.4-10.4); MONOCYTES 14.4 % (2-11); NEUTROPHILS 49.8 % (40-80); RBC 2.76 10x6/uL (4.00-5.40); RDW 17.7 % (11.5-14.5); WBC 15.8 10x3/uL (4.8-10.8)
[2017-07-13 06:31] LABS: CALC OSMOLALITY 276 mosm/kg (275-300); CARBON DIOXIDE 30.9 mmol/L (21.0-32.0); CHLORIDE - SERUM 105 mmol/L (98-107); CREATININE - SERUM 0.6 mg/dL (0.6-1.3); GLUCOSE 104 mg/dL (74-106); POTASSIUM - SERUM 3.9 mmol/L (3.5-5.1); SODIUM 140 mmol/L (136-145); UREA NITROGEN 6 mg/dL (7-18); eGFR NON AFRICAN AMERICAN > 90 mL/min (90-120)
[2017-07-13 07:04] LABS: PLATELET COUNT 381 10x3/uL (130-400)
[2017-07-13 08:49] VITALS: BP 154/78
[2017-07-13 12:52] VITALS: BP 147/76
[2017-07-13 16:14] VITALS: BP 131/71
[2017-07-13 19:00] VITALS: BP 159/85
[2017-07-14 04:00] VITALS: BP 160/93
[2017-07-14 06:07] LABS: BASOPHILS 0.1 % (0-2); EOSINOPHILS 0.1 % (0-7); HEMATOCRIT 27.2 % (36.0-48.0); HEMOGLOBIN 8.8 g/dL (12-16); IMMATURE GRANULOCYTES 5.1 % (0-5); LYMPHOCYTES 28.6 % (15-50); MCH 31.8 pg (26.0-34.0); MCHC 32.4 g/dL (31.0-37.0); MCV 98.2 fL (80.0-100.0); MEAN PLATELET VOLUME 9.3 fL (7.4-10.4); MONOCYTES 13.5 % (2-11); NEUTROPHILS 52.6 % (40-80); PLATELET COUNT 382 10x3/uL (130-400); RBC 2.77 10x6/uL (4.00-5.40); RDW 17.3 % (11.5-14.5); WBC 15.4 10x3/uL (4.8-10.8)
[2017-07-14 06:33] LABS: ALBUMIN 2.1 g/dL (3.4-5.0); ALKALINE PHOSPHATASE 105 U/L (46-116); ALT (SGPT) 13 U/L (10-68); BILIRUBIN - TOTAL 0.23 mg/dL (0.2-1.3); CALC OSMOLALITY 276 mosm/kg (275-300); CALCIUM 9.2 mg/dL (8.5-10.1); CARBON DIOXIDE 30.3 mmol/L (21.0-32.0); CHLORIDE - SERUM 103 mmol/L (98-107); CREATININE - SERUM 0.6 mg/dL (0.6-1.3); GLUCOSE 100 mg/dL (74-106); PROTEIN - SERUM 5.5 g/dL (6.4-8.2); SODIUM 140 mmol/L (136-145); UREA NITROGEN 7 mg/dL (7-18); eGFR NON AFRICAN AMERICAN > 90 mL/min (90-120)
[2017-07-14 08:00] VITALS: BP 159/103
[2017-07-14] MEDS ORDERED: CELEXA20 MG PO (09:46)
[2017-07-14 13:48] VITALS: BP 153/93
[2017-07-14 17:04] VITALS: BP 130/78
[2017-07-14 20:46] VITALS: BP 145/86
[2017-07-14 23:44] VITALS: BP 138/82
[2017-07-15 04:46] VITALS: BP 145/79
[2017-07-15 06:43] LABS: BASOPHILS 0.1 % (0-2); EOSINOPHILS 0.2 % (0-7); HEMATOCRIT 26.1 % (36.0-48.0); HEMOGLOBIN 8.4 g/dL (12-16); LYMPHOCYTES 29.5 % (15-50); MCH 31.6 pg (26.0-34.0); MCHC 32.2 g/dL (31.0-37.0); MCV 98.1 fL (80.0-100.0); MEAN PLATELET VOLUME 9.2 fL (7.4-10.4); MONOCYTES 13.4 % (2-11); NEUTROPHILS 51.8 % (40-80); PLATELET COUNT 397 10x3/uL (130-400); RBC 2.66 10x6/uL (4.00-5.40); RDW 17.6 % (11.5-14.5); WBC 16.1 10x3/uL (4.8-10.8)
[2017-07-15 07:15] LABS: ALKALINE PHOSPHATASE 95 U/L (46-116); ALT (SGPT) 14 U/L (10-68); BILIRUBIN - TOTAL 0.17 mg/dL (0.2-1.3); CALC OSMOLALITY 277 mosm/kg (275-300); CALCIUM 8.9 mg/dL (8.5-10.1); CARBON DIOXIDE 31.7 mmol/L (21.0-32.0); CHLORIDE - SERUM 102 mmol/L (98-107); CREATININE - SERUM 0.6 mg/dL (0.6-1.3); POTASSIUM - SERUM 3.7 mmol/L (3.5-5.1); PROTEIN - SERUM 5.3 g/dL (6.4-8.2); SODIUM 138 mmol/L (136-145); UREA NITROGEN 8 mg/dL (7-18); eGFR NON AFRICAN AMERICAN > 90 mL/min (90-120)
[2017-07-15 07:16] LABS: GLUCOSE 179 mg/dL (74-106)
[2017-07-15 09:33] VITALS: BP 137/75
[2017-07-15 13:26] VITALS: BP 145/66
[2017-07-15 19:00] VITALS: BP 138/76
[2017-07-16 04:00] VITALS: BP 133/64
[2017-07-16 07:47] LABS: HEMATOCRIT 24.8 % (36.0-48.0); HEMOGLOBIN 8.1 g/dL (12-16); LYMPHOCYTES 34.5 % (15-50); MCHC 32.7 g/dL (31.0-37.0); MEAN PLATELET VOLUME 8.8 fL (7.4-10.4); NEUTROPHILS 56.2 % (40-80); PLATELET COUNT 405 10x3/uL (130-400); RBC 2.53 10x6/uL (4.00-5.40); RDW 17.8 % (11.5-14.5); WBC 15.5 10x3/uL (4.8-10.8)
[2017-07-16 08:03] LABS: ALBUMIN 2.1 g/dL (3.4-5.0); ALKALINE PHOSPHATASE 90 U/L (46-116); ALT (SGPT) 13 U/L (10-68); CALC OSMOLALITY 282 mosm/kg (275-300); CALCIUM 8.8 mg/dL (8.5-10.1); CARBON DIOXIDE 29.7 mmol/L (21.0-32.0); CHLORIDE - SERUM 105 mmol/L (98-107); CREATININE - SERUM 0.5 mg/dL (0.6-1.3); POTASSIUM - SERUM 3.7 mmol/L (3.5-5.1); PROTEIN - SERUM 5.3 g/dL (6.4-8.2); SODIUM 143 mmol/L (136-145); UREA NITROGEN 8 mg/dL (7-18); eGFR NON AFRICAN AMERICAN > 90 mL/min (90-120)
[2017-07-16 08:05] LABS: GLUCOSE 98 mg/dL (74-106)
[2017-07-16 08:32] VITALS: BP 128/72
[2017-07-16 21:52] VITALS: BP 120/59
[2017-07-17 06:43] LABS: BASOPHILS 0.2 % (0-2); EOSINOPHILS 1.3 % (0-7); HEMATOCRIT 27.4 % (36.0-48.0); HEMOGLOBIN 8.4 g/dL (12-16); IMMATURE GRANULOCYTES 4.8 % (0-5); LYMPHOCYTES 26.1 % (15-50); MCH 30.5 pg (26.0-34.0); MCHC 30.7 g/dL (31.0-37.0); MCV 99.6 fL (80.0-100.0); MEAN PLATELET VOLUME 9.4 fL (7.4-10.4); MONOCYTES 12.2 % (2-11); NEUTROPHILS 55.4 % (40-80); PLATELET COUNT 410 10x3/uL (130-400); RBC 2.75 10x6/uL (4.00-5.40); WBC 14.7 10x3/uL (4.8-10.8)
[2017-07-17 07:06] LABS: ALBUMIN 2.2 g/dL (3.4-5.0); ALKALINE PHOSPHATASE 90 U/L (46-116); ALT (SGPT) 17 U/L (10-68); CALC OSMOLALITY 282 mosm/kg (275-300); CHLORIDE - SERUM 104 mmol/L (98-107); CREATININE - SERUM 0.6 mg/dL (0.6-1.3); GLUCOSE 104 mg/dL (74-106); POTASSIUM - SERUM 3.9 mmol/L (3.5-5.1); PROTEIN - SERUM 5.5 g/dL (6.4-8.2); SODIUM 143 mmol/L (136-145); UREA NITROGEN 7 mg/dL (7-18); eGFR NON AFRICAN AMERICAN > 90 mL/min (90-120)
[2017-07-17 08:49] VITALS: BP 128/78
[2017-07-17 12:29] VITALS: BP 123/69
[2017-07-17] MEDS ORDERED: COLACE100 MG PO (12:54)
[2017-07-17] MEDS ORDERED: PROTONIX40 MG PO (12:55)
[2017-07-17] MEDS ORDERED: BACTRIM DS TABL1 TAB PO (13:02)
[2017-07-17] MEDS ORDERED: PREDNISONE20 MG PO (13:04)
[2017-07-17] MEDS ORDERED: FLAGYL500 MG PO (13:08)
[2017-07-17 13:55] VITALS: Ht 170.2 cm; Wt 75.0 kg
[2017-07-17 17:00] VITALS: BP 124/72
== END 2017-07-17 17:42 | disposition home health service (06) | DRG 193 ==
LOC: D.ER → EDBD 04:41 → D.ER 04:41 → D.M2 19:01
PROVIDERS: Emergency Medicine; Internal Medicine Nephrology; Internal Medicine Pulmonary Disease
DX: J10.00 Influenza due to other identified influenza virus with unspecified type of pneumonia (principal); J96.21 Acute and chronic respiratory failure with hypoxia; I50.33 Acute on chronic diastolic (congestive) heart failure; F17.203 Nicotine dependence unspecified, with withdrawal; K86.1 Other chronic pancreatitis; J44.0 Chronic obstructive pulmonary disease with (acute) lower respiratory infection; N17.9 Acute kidney failure, unspecified; E87.0 Hyperosmolality and hypernatremia; D80.3 Selective deficiency of immunoglobulin G [IgG] subclasses; J44.1 Chronic obstructive pulmonary disease with (acute) exacerbation; M35.1 Other overlap syndromes; K76.0 Fatty (change of) liver, not elsewhere classified; I11.0 Hypertensive heart disease with heart failure; Z93.3 Colostomy status; D53.9 Nutritional anemia, unspecified; K52.9 Noninfective gastroenteritis and colitis, unspecified; M06.9 Rheumatoid arthritis, unspecified; E11.9 Type 2 diabetes mellitus without complications; Z79.4 Long term (current) use of insulin; E86.0 Dehydration; E83.42 Hypomagnesemia; E87.6 Hypokalemia; I34.0 Nonrheumatic mitral (valve) insufficiency; G89.4 Chronic pain syndrome; I27.20 Pulmonary hypertension, unspecified; K21.9 Gastro-esophageal reflux disease without esophagitis; F41.9 Anxiety disorder, unspecified; K57.90 Diverticulosis of intestine, part unspecified, without perforation or abscess without bleeding

== ENCOUNTER 2017-09-06 09:45 | Inpatient (IN) | payer MEDICARE ==
[~2017-09-06] VITALS: Ht 170.2 cm; Wt 86.0 kg
--- NOTE | ~2017-09-06 | CN ---
PATIENT NAME:NINA ODELL MEDICAL RECORD: [id number] : 66 LOCATION:D.MS [id number] ADMIT DATE: 09/06/17 ACCOUNT: [id number] CONSULTING PHYSICIAN: NAHEED PEDERSON MD REFERRING PHYSICIAN: ANGEL CHEN MD DATE OF CONSULTATION: 09/07/2017 CONSULT REQUESTING PHYSICIAN: Mike Quintana MD REASON FOR CONSULTATION: COPD, chronic hypoxic respiratory failure. HISTORY OF PRESENT ILLNESS: Ms. Odell is a 47-year-old -[place] female, very well known to me. The patient was admitted to [facility] in April, she was here more than a month. Then, the patient was transferred to [facility] for aaunn-gr-oysubxp hypoxic respiratory failure and diffuse interstitial pneumonitis. While she was there, they did not do any lung biopsy, but she underwent a laparotomy and she has a colostomy over there for intestinal obstruction. She did fairly and discharged a few weeks ago and she has another appointment this coming week. The patient came into the ER with abdominal pain and found out her lipase is a bit high. There is no associated nausea, vomiting and no diarrhea. REVIEW OF SYSTEMS: Mainly in the history of present illness. PAST MEDICAL HISTORY: 1. COPD. 2. Souao-im-objlrkn hypoxic respiratory failure. 3. Mixed connective tissue disorder. 4. Pulmonary fibrosis, interstitial pneumonitis. 5. Rheumatoid arthritis. 6. Gastroesophageal reflux disease. 7. Diverticulitis. 8. History of chronic pancreatitis. PAST SURGICAL HISTORY: Status post colostomy or intestinal obstruction. ALLERGIES: SHE IS ALLERGIC TO LATEX. MEDICATIONS: On AIFOTEC was reviewed. PERSONAL AND SOCIAL HISTORY: The patient is still a current everyday smoker. FAMILY HISTORY: Noncontributory. PHYSICAL EXAMINATION: GENERAL: Now, the patient is lying comfortably in bed. She is not in acute distress. VITAL SIGNS: The blood pressure is 148/73, pulse is 87, respirations 18, temperature 98.2, SPO2 is 99% on 2 liters nasal cannula. HEENT: Conjunctivae are pink. Sclerae nonicteric. NECK: Supple, no JVD. CHEST: There are bibasilar crackles, left more than the right. HEART: Rhythm regular, normal sound, no murmur. ABDOMEN: Soft, tender on deep palpation. Colostomy in place. RECTAL: Deferred. CONSULT REPORT [id number] NINA ODELL EXTREMITIES: No cyanosis, no clubbing, no pedal edema. SKIN: Warm, normal turgor. CENTRAL NERVOUS SYSTEM: The patient is awake and alert. There are no obvious cranial nerve abnormality. The gait was not tested. IMAGING: CT scan of the chest: There is no PE. There is ground-glass attenuation in the lung, right middle lobe is spared. There are also tree-in-bud nodular densities in the right upper lobe, in the lingular segment of the left upper lobe. LABORATORY DATA: CBC: WBC 12.1, hemoglobin 11.2, hematocrit 35.5, the platelet count 202. Chemistry: Sodium 140, potassium 3.6, lactic acid was 2.8, magnesium is 1.1, AST is 462, ALT 324 and lipase is 463. IMPRESSION: 1. Chronic hypoxic respiratory failure and chronic obstructive pulmonary disease without exacerbation. 2. Pneumonitis. 3. Acute and chronic pancreatitis. 4. Elevated liver enzyme. 5. Gastroesophageal reflux disease. 6. Status post colostomy. 7. Tobacco dependence syndrome. RECOMMENDATION: 1. Continue with Rocephin and azithromycin IV empirically. 2. Albuterol ipratropium nebulizer. 3. I will hold on steroid. 4. Follow up labs and chest radiograph. Dr. Quintana, thank you for involving me in the care of Ms. Odell. TRANSINT:[id number] Voice Confirmation ID: [id number] DOCUMENT ID: [id number] NAHEED PEDERSON MD at 1340 CC: MIKE QUINTANA [id number] DICTATION DATE: 09/07/17 184 MANUFACTURERS SERVICE REPRESENTATIVE: 09/08/17 0108 DIS IN 09/20/17 [facility] [address] [place] [address]
--- NOTE | ~2017-09-06 | EC ---
PATIENT:NINA ODELL DATE OF SERVICE: 09/06/17 SEX: F MEDICAL RECORD: [id number] DATE OF : [birth year] LOCATION:D.MS Painting AGE OF PATIENT: 47 ADMISSION DATE: 09/06/17 REFERRING PHYSICIAN: INTERPRETING PHYSICIAN: BASIA MOREIRA MD ECHOCARDIOGRAM REPORT ECHO CHARGES 4 ECHO COMPLETE CLINICAL DIAGNOSIS: PORT INFECTION, ASSESS FOR VEGATATION ECHOCARDIOGRAPHIC MEASUREMENTS (adult normal given) AC root (d.<3.7cm) 3.3 cm LV Septum d (<1.2 cm> 1.4 cm Valve Excursion 1.6 cm LV Septum (systole) 1.5 cm Left Atria (s.<4.0cm> 3.7 cm LVPW d(<1.2cm) 1.5 cm RV (d.<2.3cm) 3.5 cm LVPW (sytole) 1.7 cm LV diastole(<5.6CM) 4.5 cm MV E-F(>70mm/sec) cm LV systole 2.8 cm LVOT Diameter 1.7 cm MV exc.(>10mm) 1.4 cm Est.ejection fraction (50-75%) % Pericardial Effusion N DOPPLER: LVIT cm/sec A 142 cm/sec E cm/sec LA cm/sec RVSP 23 mmHg LVOT 114 cm/sec AOP1/2T m/s Asc. Ao 146 cm/sec RVOT 114 cm/sec RA cm/sec PA 129 cm/sec AV Gradient Peak 8.49 mmHg AV Mean 4.41 mmHg AV Area 1.8 cm MV Gradient Peak 8.12 mmHg MV Mean 2.52 mmHg MV Area cm COMMENTS: Water Restoration Technician: Warren THAYER Vice President: 2 Dr. Garcia TAPE# PACS DATE OF SERVICE: 09/10/2017 PROCEDURE: Echocardiogram. FINDINGS: 1. Left ventricular chamber size is within normal limits. Left ventricular systolic function is normal. Overall ejection fraction estimated at 60%. 2. Left atrium, right atrium, and right ventricular chamber sizes are within normal limits. 3. Valvular structures have normal structure and motion. No evidence of ECHOCARDIOGRAM REPORT [id number] NINA ODELL vegetative endocarditis. 4. Doppler interrogation only reveals trace tricuspid regurgitation. No other valvular insufficiency or stenosis. Pulmonary systolic pressure is normal, estimated at 23 mmHg. 5. No evidence of pericardial effusion or left ventricular thrombus. TRANSINT:[id number] Voice Confirmation ID: [id number] DOCUMENT ID: [id number] BASIA MOREIRA MD at 1153 CC: [id number] DICTATION DATE: 09/10/17 1222 HIGH SCHOOL GUIDANCE COUNSELOR: 09/10/17 1236 ADM IN [facility] [address] [place] [address]
--- NOTE | ~2017-09-06 | OP ---
PATIENT NAME: NINA ODELL MEDICAL RECORD: [id number] :66 LOCATION:D.MS [id number] ADMISSION DATE:09/06/17 SURGEON: JOHANNY GATICA MD DATE OF OPERATION: 09/09/2017 SURGEON: Johanny Gatica MD PREOPERATIVE DIAGNOSES: 1. Pancreatitis. 2. Bacteremia. 3. Peripheral IV access insufficiency. POSTOPERATIVE DIAGNOSES: 1. Pancreatitis. 2. Bacteremia. 3. Peripheral IV access insufficiency. PROCEDURE PERFORMED: 1. Removal of tunneled left subclavian PowerPort. 2. Placement of right subclavian triple-lumen catheter. ANESTHESIA: General. COMPLICATIONS: None. SPECIMENS: None. First case was contaminated, second case was clean. ESTIMATED BLOOD LOSS: 10 cc. OPERATIVE COURSE: After consent was obtained, the patient was taken to the operating room and placed in the supine position on the operating table. Next, general anesthesia was given via endotracheal intubation, after a timeout was performed to confirm the correct patient and procedure. The chest was prepped and draped in typical sterile fashion. The right chest was prepped and isolated from the left chest. A 20 cc of local anesthetic were injected in the left chest wall. Skin was incised with a #15 blade scalpel. Dissection continued with electrocautery until the port was identified. The port was circumferentially dissected using electrocautery. The port was removed with the catheter intact. The wound was irrigated and suctioned. Hemostasis was obtained with electrocautery. The wound was packed with 1-inch iodoform gauze and covered with sterile gauze and a Tegaderm dressing. At this time, all members of the OR team changed gloves and gowns. A separate tray set was used. The right chest was uncovered, it was reprepped and draped. Local anesthetic was administered. The right subclavian vein was cannulated on the first pass. The guidewire was placed, the needle was removed. The skin was incised with an 11-blade scalpel. The dilator was passed through the wire in a standard Seldinger fashion. The catheter was then advanced with the wire in a standard Seldinger fashion. The Biopatch was placed. The catheter was secured to the skin using 2-0 nylon suture. Sterile occlusive dressing was placed. All 3 ports were aspirated and flushed without difficulty. At the end of the case, all needle and instrument counts were correct. No complications occurred. The patient tolerated the procedure well. Postoperatively, she was transferred to the recovery room in satisfactory condition. OPERATIVE REPORT [id number] NINA ODELL TRANSINT:[id number] Voice Confirmation ID: [id number] DOCUMENT ID: [id number] JOHANNY GATICA MD at 0759 CC: [id number] DICTATION DATE: 09/09/17 1327 STORE LEAD: 09/09/17 1537 ADM IN [place] [id number]
[~2017-09-06 09:45] MED LIST changes: +BACTRIM DS TABL1 TAB PO; +CELEXA20 MG PO; +COLACE100 MG PO; +FLAGYL500 MG PO; +PREDNISONE20 MG PO
[2017-09-06 10:28] LABS: BASOPHILS 0.2 % (0-2); EOSINOPHILS 1.2 % (0-7); HEMATOCRIT 35.5 % (36.0-48.0); HEMOGLOBIN 11.2 g/dL (12-16); IMMATURE GRANULOCYTES 0.3 % (0-5); LYMPHOCYTES 35.7 % (15-50); MCH 31.3 pg (26.0-34.0); MCHC 31.5 g/dL (31.0-37.0); MCV 99.2 fL (80.0-100.0); MEAN PLATELET VOLUME 9.5 fL (7.4-10.4); MONOCYTES 6.2 % (2-11); NEUTROPHILS 56.4 % (40-80); PLATELET COUNT 282 10x3/uL (130-400); RBC 3.58 10x6/uL (4.00-5.40); RDW 17.2 % (11.5-14.5); WBC 12.1 10x3/uL (4.8-10.8)
[2017-09-06 10:34] LABS: APTT 24.2 SECONDS (22.8-39.4); INR 1.02 (0.85-1.17)
[2017-09-06 10:49] LABS: D-DIMER-QUANTITATIVE 15.91 ug/mLFEU (0.20-0.54)
[2017-09-06 10:50] LABS: ALBUMIN 2.6 g/dL (3.4-5.0); ALKALINE PHOSPHATASE 156 U/L (46-116); ALT (SGPT) 22 U/L (10-68); BILIRUBIN - TOTAL 0.24 mg/dL (0.2-1.3); CALC OSMOLALITY 277 mosm/kg (275-300); CALCIUM 8.4 mg/dL (8.5-10.1); CARBON DIOXIDE 23.8 mmol/L (21.0-32.0); CHLORIDE - SERUM 105 mmol/L (98-107); CREATININE - SERUM 0.7 mg/dL (0.6-1.3); GLUCOSE 141 mg/dL (74-106); POTASSIUM - SERUM 3.6 mmol/L (3.5-5.1); PROTEIN - SERUM 6.3 g/dL (6.4-8.2); SODIUM 140 mmol/L (136-145); UREA NITROGEN 3 mg/dL (7-18); eGFR NON AFRICAN AMERICAN > 90 mL/min (90-120)
[2017-09-06 10:52] LABS: AMYLASE - SERUM 81 U/L (25-115); CKMB 0.5 U/L (0.0-3.6); CREATINE KINASE 17 UL (21-215); LIPASE 220 U/L (73-393); MAGNESIUM - SERUM 1.1 mg/dL (1.8-2.4); PRO BNP 115 pg/mL (0-125); TROPONIN-I < 0.017 ng/mL (0.000-0.060)
[2017-09-06 21:31] VITALS: BP 133/86
[2017-09-06 22:32] VITALS: BP 142/77; BMI 27.3
[2017-09-07 00:08] LABS: APPEARANCE HAZY (CLEAR); BILIRUBIN NEGATIVE (NEGATIVE); COLOR YELLOW (YELLOW); GLUCOSE NEGATIVE (NEGATIVE); KETONE NEGATIVE (NEGATIVE); NITRITE NEGATIVE (NEGATIVE); PROTEIN NEGATIVE (NEGATIVE); SPECIFIC GRAVITY 1.015 (1.005-1.020); UROBILINOGEN NORMAL (NORMAL)
[2017-09-07 00:50] VITALS: BP 155/87
[2017-09-07 07:16] LABS: BASOPHILS 0.4 % (0-2); HEMATOCRIT 32.1 % (36.0-48.0); HEMOGLOBIN 10.4 g/dL (12-16); IMMATURE GRANULOCYTES 0.6 % (0-5); LYMPHOCYTES 13.4 % (15-50); MCH 31.3 pg (26.0-34.0); MCHC 32.4 g/dL (31.0-37.0); MEAN PLATELET VOLUME 9.7 fL (7.4-10.4); MONOCYTES 3.9 % (2-11); NEUTROPHILS 80.7 % (40-80); RBC 3.32 10x6/uL (4.00-5.40)
[2017-09-07 07:25] LABS: ALBUMIN 2.5 g/dL (3.4-5.0); CALCIUM 8.5 mg/dL (8.5-10.1); CARBON DIOXIDE 21.1 mmol/L (21.0-32.0); CHLORIDE - SERUM 99 mmol/L (98-107); CREATININE - SERUM 0.6 mg/dL (0.6-1.3); SODIUM 132 mmol/L (136-145); UREA NITROGEN 3 mg/dL (7-18); eGFR NON AFRICAN AMERICAN > 90 mL/min (90-120)
[2017-09-07 07:26] LABS: MCV 96.7 fL (80.0-100.0); PLATELET COUNT 223 10x3/uL (130-400); WBC 7.2 10x3/uL (4.8-10.8)
[2017-09-07 07:33] LABS: AMYLASE - SERUM 71 U/L (25-115); LIPASE 463 U/L (73-393)
[2017-09-07 07:47] LABS: CALC OSMOLALITY 260 mosm/kg (275-300); GLUCOSE 86 mg/dL (74-106); MAGNESIUM - SERUM 1.8 mg/dL (1.8-2.4)
[2017-09-07 07:50] LABS: ALKALINE PHOSPHATASE 185 U/L (46-116); BILIRUBIN - TOTAL 0.93 mg/dL (0.2-1.3); PROTEIN - SERUM 6.6 g/dL (6.4-8.2)
[2017-09-07 07:56] LABS: ALT (SGPT) 324 U/L (10-68)
[2017-09-07 09:59] VITALS: BP 150/90
[2017-09-07 11:55] VITALS: BP 152/73
[2017-09-07 13:27] VITALS: BMI 27.2
[2017-09-07 16:48] VITALS: BP 148/73
[2017-09-07 20:00] VITALS: BP 167/98
[2017-09-08 04:00] VITALS: BP 135/75
[2017-09-08 05:23] LABS: BASOPHILS 0.2 % (0-2); HEMOGLOBIN 12.1 g/dL (12-16); IMMATURE GRANULOCYTES 0.7 % (0-5); LYMPHOCYTES 27.1 % (15-50); MCHC 30.9 g/dL (31.0-37.0); MEAN PLATELET VOLUME 9.8 fL (7.4-10.4); MONOCYTES 2.5 % (2-11); NEUTROPHILS 66.5 % (40-80); PLATELET COUNT 196 10x3/uL (130-400); RDW 17.3 % (11.5-14.5)
[2017-09-08 05:41] LABS: HEMATOCRIT 39.1 % (36.0-48.0); MCV 100.3 fL (80.0-100.0)
[2017-09-08 05:42] LABS: INR 1.27 (0.85-1.17); PROTIME 15.5 SECONDS (11.6-15.0)
[2017-09-08 06:03] LABS: ALBUMIN 2.6 g/dL (3.4-5.0); ALKALINE PHOSPHATASE 192 U/L (46-116); AMYLASE - SERUM 64 U/L (25-115); CALC OSMOLALITY 270 mosm/kg (275-300); CARBON DIOXIDE 21.4 mmol/L (21.0-32.0); CHLORIDE - SERUM 102 mmol/L (98-107); CREATININE - SERUM 0.5 mg/dL (0.6-1.3); GLUCOSE 90 mg/dL (74-106); LIPASE 380 U/L (73-393); PROTEIN - SERUM 6.5 g/dL (6.4-8.2); SODIUM 137 mmol/L (136-145); UREA NITROGEN 3 mg/dL (7-18); eGFR NON AFRICAN AMERICAN > 90 mL/min (90-120)
[2017-09-08 06:07] LABS: ALT (SGPT) 913 U/L (10-68); POTASSIUM - SERUM 3.3 mmol/L (3.5-5.1)
[2017-09-08 08:32] VITALS: BP 147/85
[2017-09-08 13:41] VITALS: BP 126/47
[2017-09-08 16:32] VITALS: BP 157/82
[2017-09-08 16:53] VITALS: Ht 170.2 cm; Wt 86.0 kg
[2017-09-08 20:00] VITALS: BP 141/80
[2017-09-08 21:56] LABS: APTT 20.3 SECONDS (22.8-39.4); INR 1.05 (0.85-1.17); PROTIME 13.3 SECONDS (11.6-15.0)
[2017-09-08 22:13] LABS: ACETAMINOPHEN 5.6 ug/mL (10.0-30.0); ALBUMIN 2.7 g/dL (3.4-5.0); BILIRUBIN - DIRECT 0.12 mg/dL (0.00-0.30); BILIRUBIN - INDIRECT 0.78 mg/dL (0.00-1.00); BILIRUBIN - TOTAL 0.9 mg/dL (0.2-1.3); PROTEIN - SERUM 6.4 g/dL (6.4-8.2)
[2017-09-09] VITALS (11 sets, daily range): BP systolic 141–189; BP diastolic 78–118
[2017-09-09 17:27] LABS: BASOPHILS 0 % (0-2); EOSINOPHILS 0.3 % (0-7); HEMATOCRIT 32.5 % (36.0-48.0); HEMOGLOBIN 10.2 g/dL (12-16); IMMATURE GRANULOCYTES 0.5 % (0-5); LYMPHOCYTES 17.6 % (15-50); MCHC 31.4 g/dL (31.0-37.0); MCV 98.8 fL (80.0-100.0); MEAN PLATELET VOLUME 9.2 fL (7.4-10.4); MONOCYTES 2.6 % (2-11); PLATELET COUNT 228 10x3/uL (130-400); RBC 3.29 10x6/uL (4.00-5.40); RDW 17.1 % (11.5-14.5)
[2017-09-09 17:45] LABS: INR 1.07 (0.85-1.17); PROTIME 13.5 SECONDS (11.6-15.0)
[2017-09-09 17:48] LABS: WBC 3.9 10x3/uL (4.8-10.8)
[2017-09-09 17:52] LABS: APTT 28.1 SECONDS (22.8-39.4)
[2017-09-09 17:53] LABS: ALBUMIN 2.2 g/dL (3.4-5.0); ALKALINE PHOSPHATASE 218 U/L (46-116); BILIRUBIN - TOTAL 0.37 mg/dL (0.2-1.3); CALCIUM 8.5 mg/dL (8.5-10.1); CARBON DIOXIDE 24.5 mmol/L (21.0-32.0); CHLORIDE - SERUM 104 mmol/L (98-107); CREATININE - SERUM 0.6 mg/dL (0.6-1.3); LIPASE 71 U/L (73-393); PROTEIN - SERUM 5.7 g/dL (6.4-8.2); SODIUM 138 mmol/L (136-145); eGFR NON AFRICAN AMERICAN > 90 mL/min (90-120)
[2017-09-09 17:55] LABS: ALT (SGPT) 384 U/L (10-68); AMYLASE - SERUM 45 U/L (25-115); CALC OSMOLALITY 273 mosm/kg (275-300); GLUCOSE 138 mg/dL (74-106); POTASSIUM - SERUM 4.3 mmol/L (3.5-5.1); UREA NITROGEN 0 mg/dL (7-18)
[2017-09-10] VITALS: BP 103/68
[2017-09-10 04:00] VITALS: BP 151/86
[2017-09-10 05:41] LABS: BASOPHILS 0.1 % (0-2); EOSINOPHILS 0 % (0-7); HEMOGLOBIN 10.5 g/dL (12-16); IMMATURE GRANULOCYTES 0.4 % (0-5); MCH 30.7 pg (26.0-34.0); MCHC 30.9 g/dL (31.0-37.0); MCV 99.4 fL (80.0-100.0); MEAN PLATELET VOLUME 9.7 fL (7.4-10.4); MONOCYTES 11.8 % (2-11); NEUTROPHILS 76.7 % (40-80); RBC 3.42 10x6/uL (4.00-5.40); RDW 17.2 % (11.5-14.5)
[2017-09-10 06:11] LABS: ALBUMIN 2.3 g/dL (3.4-5.0); BILIRUBIN - TOTAL 0.3 mg/dL (0.2-1.3); CALCIUM 8.2 mg/dL (8.5-10.1); POTASSIUM - SERUM 3.8 mmol/L (3.5-5.1); PROTEIN - SERUM 5.9 g/dL (6.4-8.2)
[2017-09-10 06:16] LABS: PLATELET COUNT 305 10x3/uL (130-400); WBC 13.7 10x3/uL (4.8-10.8)
[2017-09-10 06:20] LABS: ANION GAP 22.3 mmol/L (8-16); CARBON DIOXIDE 17.5 mmol/L (21.0-32.0); CREATININE - SERUM 0.9 mg/dL (0.6-1.3)
[2017-09-10 09:20] VITALS: BP 137/80
[2017-09-10 13:17] VITALS: BP 142/80
[2017-09-10 17:38] VITALS: BP 138/73
[2017-09-10 20:00] VITALS: BP 133/65
[2017-09-11] VITALS: BP 113/60
[2017-09-11 04:00] VITALS: BP 118/55
[2017-09-11 05:36] LABS: BASOPHILS 0.1 % (0-2); EOSINOPHILS 0 % (0-7); HEMATOCRIT 30.2 % (36.0-48.0); HEMOGLOBIN 9.7 g/dL (12-16); IMMATURE GRANULOCYTES 0.2 % (0-5); LYMPHOCYTES 9.3 % (15-50); MCHC 32.1 g/dL (31.0-37.0); MEAN PLATELET VOLUME 9.5 fL (7.4-10.4); MONOCYTES 4.2 % (2-11); NEUTROPHILS 86.2 % (40-80); RBC 3.13 10x6/uL (4.00-5.40); RDW 17.3 % (11.5-14.5); WBC 13.6 10x3/uL (4.8-10.8)
[2017-09-11 05:51] LABS: MCV 96.5 fL (80.0-100.0); PLATELET COUNT 235 10x3/uL (130-400)
[2017-09-11 06:08] LABS: ALKALINE PHOSPHATASE 165 U/L (46-116); CHLORIDE - SERUM 101 mmol/L (98-107); GLUCOSE 127 mg/dL (74-106); POTASSIUM - SERUM 3.7 mmol/L (3.5-5.1); PROTEIN - SERUM 5.3 g/dL (6.4-8.2); SODIUM 139 mmol/L (136-145)
[2017-09-11 06:11] LABS: ALT (SGPT) 179 U/L (10-68); AMYLASE - SERUM 34 U/L (25-115); CALC OSMOLALITY 276 mosm/kg (275-300); CARBON DIOXIDE 29.8 mmol/L (21.0-32.0); CREATININE - SERUM 0.6 mg/dL (0.6-1.3); LIPASE 42 U/L (73-393); UREA NITROGEN 5 mg/dL (7-18); eGFR NON AFRICAN AMERICAN > 90 mL/min (90-120)
[2017-09-11 08:05] VITALS: BP 112/68
[2017-09-11 12:05] VITALS: BP 112/58
[2017-09-11 17:02] VITALS: BP 102/58
[2017-09-11 23:02] VITALS: BP 103/52
[2017-09-12 02:45] VITALS: BP 123/59
[2017-09-12 04:32] VITALS: BP 137/72
[2017-09-12 06:20] LABS: HEMATOCRIT 31.6 % (36.0-48.0); HEMOGLOBIN 9.9 g/dL (12-16); MCH 30.6 pg (26.0-34.0); MCHC 31.3 g/dL (31.0-37.0); MCV 97.5 fL (80.0-100.0); RBC 3.24 10x6/uL (4.00-5.40); WBC 20.7 10x3/uL (4.8-10.8)
[2017-09-12 06:21] LABS: BASOPHILS 0 % (0-2); EOSINOPHILS 0 % (0-7); IMMATURE GRANULOCYTES 0.5 % (0-5); LYMPHOCYTES 7.5 % (15-50); MONOCYTES 11.2 % (2-11); NEUTROPHILS 80.8 % (40-80); PLATELET COUNT 284 10x3/uL (130-400)
[2017-09-12 06:36] LABS: ALBUMIN 2.1 g/dL (3.4-5.0); ALKALINE PHOSPHATASE 149 U/L (46-116); AMYLASE - SERUM 42 U/L (25-115); CARBON DIOXIDE 29.1 mmol/L (21.0-32.0); CHLORIDE - SERUM 95 mmol/L (98-107); LIPASE 67 U/L (73-393); POTASSIUM - SERUM 3.3 mmol/L (3.5-5.1); SODIUM 133 mmol/L (136-145)
[2017-09-12 06:40] LABS: ALT (SGPT) 123 U/L (10-68); CALC OSMOLALITY 275 mosm/kg (275-300); CREATININE - SERUM 0.8 mg/dL (0.6-1.3); GLUCOSE 285 mg/dL (74-106); UREA NITROGEN 13 mg/dL (7-18); eGFR NON AFRICAN AMERICAN 81 mL/min (90-120)
[2017-09-12 08:20] VITALS: BP 137/72
[2017-09-12 12:27] VITALS: BP 144/90
[2017-09-12 15:18] VITALS: BP 147/78
[2017-09-12 22:58] VITALS: BP 135/60
[2017-09-13 01:21] VITALS: BP 115/71
[2017-09-13 05:38] LABS: BASOPHILS 0.1 % (0-2); EOSINOPHILS 0 % (0-7); HEMATOCRIT 31.1 % (36.0-48.0); HEMOGLOBIN 9.7 g/dL (12-16); IMMATURE GRANULOCYTES 0.7 % (0-5); LYMPHOCYTES 8.8 % (15-50); MCH 30.5 pg (26.0-34.0); MCHC 31.2 g/dL (31.0-37.0); MCV 97.8 fL (80.0-100.0); MEAN PLATELET VOLUME 9.6 fL (7.4-10.4); MONOCYTES 7.8 % (2-11); NEUTROPHILS 82.6 % (40-80); PLATELET COUNT 319 10x3/uL (130-400); RBC 3.18 10x6/uL (4.00-5.40); RDW 16.8 % (11.5-14.5)
[2017-09-13 05:44] VITALS: BP 148/54
[2017-09-13 05:55] LABS: ALBUMIN 2.1 g/dL (3.4-5.0); ALKALINE PHOSPHATASE 125 U/L (46-116); CALC OSMOLALITY 281 mosm/kg (275-300); CALCIUM 8.2 mg/dL (8.5-10.1); CARBON DIOXIDE 33.2 mmol/L (21.0-32.0); CHLORIDE - SERUM 98 mmol/L (98-107); CREATININE - SERUM 0.7 mg/dL (0.6-1.3); GLUCOSE 266 mg/dL (74-106); PROTEIN - SERUM 5.9 g/dL (6.4-8.2); SODIUM 136 mmol/L (136-145); UREA NITROGEN 14 mg/dL (7-18); eGFR NON AFRICAN AMERICAN > 90 mL/min (90-120)
[2017-09-13 05:56] LABS: ALT (SGPT) 85 U/L (10-68); POTASSIUM - SERUM 4.1 mmol/L (3.5-5.1)
[2017-09-13 08:32] VITALS: BP 130/68
[2017-09-13 23:07] VITALS: BP 129/58
[2017-09-14 05:06] VITALS: BP 142/73
[2017-09-14 05:17] LABS: BASOPHILS 0.1 % (0-2); EOSINOPHILS 0 % (0-7); HEMATOCRIT 32.5 % (36.0-48.0); HEMOGLOBIN 10.2 g/dL (12-16); IMMATURE GRANULOCYTES 1.8 % (0-5); MCH 30.9 pg (26.0-34.0); MCHC 31.4 g/dL (31.0-37.0); MCV 98.5 fL (80.0-100.0); MEAN PLATELET VOLUME 9.9 fL (7.4-10.4); MONOCYTES 9.5 % (2-11); NEUTROPHILS 80.6 % (40-80); RDW 16.9 % (11.5-14.5)
[2017-09-14 05:27] LABS: ALBUMIN 2.3 g/dL (3.4-5.0); ANION GAP 11.2 mmol/L (8-16); BILIRUBIN - TOTAL 0.16 mg/dL (0.2-1.3); CALCIUM 8.9 mg/dL (8.5-10.1); CARBON DIOXIDE 33.1 mmol/L (21.0-32.0); PLATELET COUNT 383 10x3/uL (130-400); PROTEIN - SERUM 6.3 g/dL (6.4-8.2); WBC 18.3 10x3/uL (4.8-10.8)
[2017-09-14 05:39] LABS: CREATININE - SERUM 0.9 mg/dL (0.6-1.3); POTASSIUM - SERUM 3.3 mmol/L (3.5-5.1)
[2017-09-14 08:11] VITALS: BP 155/72
[2017-09-14 12:21] VITALS: BP 163/71
[2017-09-14 20:38] VITALS: BP 135/66
[2017-09-15] VITALS (7 sets, daily range): BP systolic 117–148; BP diastolic 54–83
[2017-09-15 04:04] LABS: BASOPHILS 0.1 % (0-2); EOSINOPHILS 0 % (0-7); HEMATOCRIT 30.8 % (36.0-48.0); HEMOGLOBIN 9.7 g/dL (12-16); IMMATURE GRANULOCYTES 1.6 % (0-5); LYMPHOCYTES 10.6 % (15-50); MCH 30.7 pg (26.0-34.0); MCHC 31.5 g/dL (31.0-37.0); MCV 97.5 fL (80.0-100.0); MEAN PLATELET VOLUME 9.5 fL (7.4-10.4); MONOCYTES 11.5 % (2-11); NEUTROPHILS 76.2 % (40-80); PLATELET COUNT 381 10x3/uL (130-400); RBC 3.16 10x6/uL (4.00-5.40); RDW 16.7 % (11.5-14.5); WBC 14.8 10x3/uL (4.8-10.8)
[2017-09-15 04:15] LABS: ALBUMIN 2.2 g/dL (3.4-5.0); ALKALINE PHOSPHATASE 119 U/L (46-116); ALT (SGPT) 51 U/L (10-68); BILIRUBIN - TOTAL 0.16 mg/dL (0.2-1.3); CALC OSMOLALITY 280 mosm/kg (275-300); CALCIUM 8.5 mg/dL (8.5-10.1); CARBON DIOXIDE 37.1 mmol/L (21.0-32.0); CHLORIDE - SERUM 96 mmol/L (98-107); CREATININE - SERUM 0.8 mg/dL (0.6-1.3); GLUCOSE 190 mg/dL (74-106); LDH 373 U/L (81-234); POTASSIUM - SERUM 3.8 mmol/L (3.5-5.1); PROTEIN - SERUM 5.8 g/dL (6.4-8.2); SODIUM 137 mmol/L (136-145); UREA NITROGEN 19 mg/dL (7-18); eGFR NON AFRICAN AMERICAN 81 mL/min (90-120)
[2017-09-16 04:29] VITALS: BP 161/56
[2017-09-16 06:09] LABS: BASOPHILS 0.1 % (0-2); EOSINOPHILS 0 % (0-7); HEMATOCRIT 27.2 % (36.0-48.0); HEMOGLOBIN 8.6 g/dL (12-16); IMMATURE GRANULOCYTES 2.1 % (0-5); LYMPHOCYTES 8.6 % (15-50); MCH 30.4 pg (26.0-34.0); MCHC 31.6 g/dL (31.0-37.0); MCV 96.1 fL (80.0-100.0); MEAN PLATELET VOLUME 9.1 fL (7.4-10.4); MONOCYTES 7.6 % (2-11); NEUTROPHILS 81.6 % (40-80); PLATELET COUNT 371 10x3/uL (130-400); RBC 2.83 10x6/uL (4.00-5.40); RDW 16.7 % (11.5-14.5); WBC 16.9 10x3/uL (4.8-10.8)
[2017-09-16 06:29] LABS: ALKALINE PHOSPHATASE 96 U/L (46-116); AMYLASE - SERUM 41 U/L (25-115); BILIRUBIN - TOTAL 0.17 mg/dL (0.2-1.3); CALCIUM 8.1 mg/dL (8.5-10.1); CARBON DIOXIDE 34.2 mmol/L (21.0-32.0); CHLORIDE - SERUM 97 mmol/L (98-107); CREATININE - SERUM 0.7 mg/dL (0.6-1.3); LIPASE 51 U/L (73-393); POTASSIUM - SERUM 3.7 mmol/L (3.5-5.1); PROTEIN - SERUM 5.2 g/dL (6.4-8.2); SODIUM 133 mmol/L (136-145); UREA NITROGEN 18 mg/dL (7-18); eGFR NON AFRICAN AMERICAN > 90 mL/min (90-120)
[2017-09-16 06:47] LABS: ALT (SGPT) 38 U/L (10-68); CALC OSMOLALITY 279 mosm/kg (275-300); GLUCOSE 307 mg/dL (74-106)
[2017-09-16 09:16] VITALS: BP 119/24
[2017-09-16 12:38] VITALS: BP 150/77
[2017-09-16 16:10] VITALS: BP 108/67
[2017-09-16 21:09] VITALS: BP 135/67
[2017-09-17 04:42] VITALS: BP 148/68
[2017-09-17 06:26] LABS: BASOPHILS 0.1 % (0-2); EOSINOPHILS 0 % (0-7); HEMATOCRIT 26.4 % (36.0-48.0); HEMOGLOBIN 8.4 g/dL (12-16); IMMATURE GRANULOCYTES 3.1 % (0-5); LYMPHOCYTES 6.4 % (15-50); MCH 30.4 pg (26.0-34.0); MCHC 31.8 g/dL (31.0-37.0); MCV 95.7 fL (80.0-100.0); MEAN PLATELET VOLUME 9.5 fL (7.4-10.4); NEUTROPHILS 84.4 % (40-80); PLATELET COUNT 403 10x3/uL (130-400); RBC 2.76 10x6/uL (4.00-5.40); RDW 17.2 % (11.5-14.5); WBC 17.6 10x3/uL (4.8-10.8)
[2017-09-17 06:40] LABS: ALBUMIN 2.1 g/dL (3.4-5.0); ALKALINE PHOSPHATASE 90 U/L (46-116); ALT (SGPT) 33 U/L (10-68); CALC OSMOLALITY 288 mosm/kg (275-300); CALCIUM 8.2 mg/dL (8.5-10.1); CARBON DIOXIDE 33.9 mmol/L (21.0-32.0); CHLORIDE - SERUM 97 mmol/L (98-107); CREATININE - SERUM 0.7 mg/dL (0.6-1.3); GLUCOSE 328 mg/dL (74-106); POTASSIUM - SERUM 3.8 mmol/L (3.5-5.1); PROTEIN - SERUM 5.3 g/dL (6.4-8.2); SODIUM 137 mmol/L (136-145); UREA NITROGEN 19 mg/dL (7-18); eGFR NON AFRICAN AMERICAN > 90 mL/min (90-120)
[2017-09-17 09:37] VITALS: BP 126/66
[2017-09-17 12:20] VITALS: BP 120/67
[2017-09-17 17:05] VITALS: BP 134/67
[2017-09-17 21:39] VITALS: BP 131/64
[2017-09-18 05:34] VITALS: BP 184/78
[2017-09-18 06:15] LABS: BASOPHILS 0.1 % (0-2); EOSINOPHILS 0 % (0-7); HEMATOCRIT 27.7 % (36.0-48.0); HEMOGLOBIN 8.6 g/dL (12-16); IMMATURE GRANULOCYTES 3.6 % (0-5); LYMPHOCYTES 7.3 % (15-50); MCH 29.9 pg (26.0-34.0); MCV 96.2 fL (80.0-100.0); MEAN PLATELET VOLUME 9.4 fL (7.4-10.4); MONOCYTES 7.7 % (2-11); NEUTROPHILS 81.3 % (40-80); PLATELET COUNT 400 10x3/uL (130-400); RBC 2.88 10x6/uL (4.00-5.40); RDW 17.5 % (11.5-14.5); WBC 18.8 10x3/uL (4.8-10.8)
[2017-09-18 06:33] LABS: CALC OSMOLALITY 291 mosm/kg (275-300); CALCIUM 8.6 mg/dL (8.5-10.1); CARBON DIOXIDE 34.5 mmol/L (21.0-32.0); CHLORIDE - SERUM 96 mmol/L (98-107); CREATININE - SERUM 0.8 mg/dL (0.6-1.3); POTASSIUM - SERUM 3.8 mmol/L (3.5-5.1); SODIUM 136 mmol/L (136-145); UREA NITROGEN 22 mg/dL (7-18); eGFR NON AFRICAN AMERICAN 81 mL/min (90-120)
[2017-09-18 06:35] LABS: GLUCOSE 399 mg/dL (74-106)
[2017-09-18 07:55] VITALS: BP 131/65
[2017-09-18 11:49] VITALS: BP 127/62
[2017-09-18 15:37] VITALS: BP 115/51
[2017-09-18 22:49] VITALS: BP 126/60
[2017-09-19 02:50] VITALS: BP 120/70
[2017-09-19 05:16] LABS: BASOPHILS 0.1 % (0-2); EOSINOPHILS 0 % (0-7); HEMATOCRIT 29.3 % (36.0-48.0); HEMOGLOBIN 9.1 g/dL (12-16); IMMATURE GRANULOCYTES 3.8 % (0-5); LYMPHOCYTES 6.2 % (15-50); MCH 29.9 pg (26.0-34.0); MCHC 31.1 g/dL (31.0-37.0); MCV 96.4 fL (80.0-100.0); MONOCYTES 7.6 % (2-11); NEUTROPHILS 82.3 % (40-80); PLATELET COUNT 400 10x3/uL (130-400); RBC 3.04 10x6/uL (4.00-5.40); RDW 17.4 % (11.5-14.5); WBC 21.4 10x3/uL (4.8-10.8)
[2017-09-19 05:37] LABS: ANION GAP 11.5 mmol/L (8-16); CALCIUM 8.9 mg/dL (8.5-10.1); CARBON DIOXIDE 33.8 mmol/L (21.0-32.0); POTASSIUM - SERUM 4.3 mmol/L (3.5-5.1)
[2017-09-19 05:54] VITALS: BP 193/77
[2017-09-19 07:41] VITALS: BP 111/59
[2017-09-19 11:10] VITALS: BP 106/60
[2017-09-19 15:16] VITALS: BP 143/50
[2017-09-19 22:24] VITALS: BP 107/71
[2017-09-20 05:25] VITALS: BP 138/73
[2017-09-20 07:01] LABS: HEMATOCRIT 27.4 % (36.0-48.0); HEMOGLOBIN 8.6 g/dL (12-16); MCHC 31.4 g/dL (31.0-37.0); MCV 95.5 fL (80.0-100.0); PLATELET COUNT 369 10x3/uL (130-400); RBC 2.87 10x6/uL (4.00-5.40); RDW 17.7 % (11.5-14.5); WBC 25.8 10x3/uL (4.8-10.8)
[2017-09-20 07:04] LABS: CALC OSMOLALITY 289 mosm/kg (275-300); CARBON DIOXIDE 36.2 mmol/L (21.0-32.0); CHLORIDE - SERUM 99 mmol/L (98-107); CREATININE - SERUM 0.8 mg/dL (0.6-1.3); POTASSIUM - SERUM 4.3 mmol/L (3.5-5.1); SODIUM 138 mmol/L (136-145); UREA NITROGEN 31 mg/dL (7-18); eGFR NON AFRICAN AMERICAN 81 mL/min (90-120)
[2017-09-20 07:05] LABS: GLUCOSE 232 mg/dL (74-106)
[2017-09-20 07:35] LABS: LYMPHOCYTES 19 % (15-50); MONOCYTES 6 % (2-11); NEUTROPHILS 72 % (40-80)
[2017-09-20 07:36] LABS: PLATELET ESTIMATE NORMAL
[2017-09-20 08:00] VITALS: BP 128/73
[2017-09-20 11:30] VITALS: BP 125/58
[2017-09-20] MEDS ORDERED: NICODERM C1 PATCH .1 TRANSDERM (11:58)
[2017-09-20] MEDS ORDERED: PREDNISONE20 MG PO (12:01)
== END 2017-09-20 19:15 | disposition home health service (06) | DRG 438 ==
LOC: D.MS → D.ER 09:45 → D.MS 15:36 → D.EDHOLD 15:36 → D.MS 17:02
PROVIDERS: Family Medicine; Internal Medicine Gastroenterology; Internal Medicine Nephrology; Surgery
PROC: B5161ZA Fluoroscopy of Right Subclavian Vein using Low Osmolar Contrast, Guidance (ICD-10-PCS; 2017-09-09)
PROC: 0JPV0WZ Removal of Totally Implantable Vascular Access Device from Upper Extremity Subcutaneous Tissue and Fascia, Open Approach (ICD-10-PCS; principal; 2017-09-09 11:00)
PROC: 05H533Z Insertion of Infusion Device into Right Subclavian Vein, Percutaneous Approach (ICD-10-PCS; 2017-09-09 11:00)
DX: K85.90 Acute pancreatitis without necrosis or infection, unspecified (principal); J18.9 Pneumonia, unspecified organism; J96.11 Chronic respiratory failure with hypoxia; E87.2 Acidosis; F17.203 Nicotine dependence unspecified, with withdrawal; K86.1 Other chronic pancreatitis; J84.89 Other specified interstitial pulmonary diseases; T39.1X1A Poisoning by 4-Aminophenol derivatives, accidental (unintentional), initial encounter; J43.9 Emphysema, unspecified; K21.9 Gastro-esophageal reflux disease without esophagitis; K86.89 Other specified diseases of pancreas; D64.9 Anemia, unspecified; E83.42 Hypomagnesemia; I10 Essential (primary) hypertension; K86.81 Exocrine pancreatic insufficiency

== ENCOUNTER 2017-09-21 17:00 | Inpatient (IN) | payer MEDICARE ==
[~2017-09-21] VITALS: Ht 170.2 cm; Wt 87.7 kg
--- NOTE | ~2017-09-21 | CN ---
PATIENT NAME:NINA ODELL MEDICAL RECORD: [id number] : 66 LOCATION:D.MS Frank2205 ADMIT DATE: 09/21/17 ACCOUNT: [id number] CONSULTING PHYSICIAN: NAHEED PEDERSON MD REFERRING PHYSICIAN: JOSHUA CHAN MD DATE OF CONSULTATION: 09/22/2017 CONSULT REQUESTING PHYSICIAN: Joshua Chan MD REASON FOR CONSULTATION: Vupde-zk-jzwusph hypoxic respiratory failure, acute exacerbation of chronic obstructive pulmonary disease. HISTORY OF PRESENT ILLNESS: Ms. Odell is a 47-year-old female, who was just discharged on Thursday. According to the patient, since yesterday, she has worsening shortness of breath. She is coughing green phlegm. The patient came back to the ER and admitted for possible pneumonia and interstitial pneumonitis. REVIEW OF SYSTEMS: As in history of present illness. PAST MEDICAL HISTORY: 1. Chronic obstructive pulmonary disease. 2. Btezt-sf-adipuyj hypoxic respiratory failure. 3. Mixed connective tissue disorder. 4. Rheumatoid arthritis. 5. Pulmonary fibrosis, interstitial pneumonitis. 6. Gastroesophageal reflux disease. 7. Diverticulitis. 8. History of chronic pancreatitis. PAST SURGICAL HISTORY: She is status post colostomy and for intestinal obstruction. ALLERGIES: ALLERGIC TO LATEX. PRESENT MEDICATIONS: On Gr[employer] was reviewed. PERSONAL AND SOCIAL HISTORY: Most likely, the patient still continues to smoke. She is a nondrinker. FAMILY HISTORY: Noncontributory. PHYSICAL EXAMINATION: GENERAL: The patient is now lying comfortably in bed. She is not in acute distress. VITAL SIGNS: The blood pressure is 165/77, pulse is 87, respirations 18, temperature 98.6, SPO2 is 96% on 3 liter nasal cannula. HEENT: Conjunctivae is pink, sclerae nonicteric. NECK: Supple, no JVD. CHEST: There are bilateral crackles. Wheeze on forceful expiration. HEART: Rhythm regular, normal sound, no murmur. ABDOMEN: Soft. Colostomy in place. RECTAL: Deferred. EXTREMITIES: No cyanosis, no clubbing, no pedal edema. CENTRAL NERVOUS SYSTEM: The patient is awake and alert. There are no obvious cranial nerve abnormality. The gait was not tested. CONSULT REPORT [id number] NINA ODELL IMAGING: Chest radiograph, there is bilateral increased interstitial infiltrate, left more than the right. LABORATORY DATA: CBC: WBC 26.9, hemoglobin 9.7, hematocrit 30.5, and the platelet count is 147. Chemistry: Sodium 135, potassium 4.5, BUN is 13, creatinine 0.6, glucose 263. IMPRESSION: 1. Cxlgw-ld-nmmsjlh hypoxic respiratory failure. 2. Acute exacerbation of chronic obstructive pulmonary disease. 3. Hospital-acquired pneumonia, bilateral. 4. Interstitial pneumonitis. 5. Gastroesophageal reflux disease. 6. Rheumatoid arthritis. 7. Chronic pancreatitis. RECOMMENDATION: 1. Adjust the dose of methylprednisolone IV, Xopenex and ipratropium nebulizer, Brovana and budesonide nebulizer. Continue Levaquin. I will add cefepime and vancomycin to cover for the hospital-acquired pneumonia, GNR and MRSA. 2. Consult ID. 3. Follow up labs and chest radiograph. Dr. Chan, thank you for involving me in the care of Mr. Odell. TRANSINT:[id number] Voice Confirmation ID: [id number] DOCUMENT ID: [id number] NAHEED PEDERSON MD at 1340 CC: JOSHUA CHAN MD [id number] DICTATION DATE: 09/22/17 1437 INSPECTOR AUTOMATIC TYPEWRITER: 09/22/17 1512 ADM IN [facility] [address] [id number]
[~2017-09-21 17:00] MED LIST changes: +NICODERM C1 PATCH .1 TRANSDERM
[2017-09-21 19:32] LABS: HEMATOCRIT 30.5 % (36.0-48.0); HEMOGLOBIN 9.7 g/dL (12-16); MCH 30.5 pg (26.0-34.0); MCHC 31.8 g/dL (31.0-37.0); MCV 95.9 fL (80.0-100.0); MEAN PLATELET VOLUME 9.6 fL (7.4-10.4); PLATELET COUNT 147 10x3/uL (130-400); RBC 3.18 10x6/uL (4.00-5.40); RDW 17.9 % (11.5-14.5); WBC 26.9 10x3/uL (4.8-10.8)
[2017-09-21 19:40] LABS: ALBUMIN 2.7 g/dL (3.4-5.0); ALKALINE PHOSPHATASE 111 U/L (46-116); ALT (SGPT) 27 U/L (10-68); BILIRUBIN - TOTAL 0.44 mg/dL (0.2-1.3); CALCIUM 8.7 mg/dL (8.5-10.1); CARBON DIOXIDE 28.6 mmol/L (21.0-32.0); CHLORIDE - SERUM 99 mmol/L (98-107); CREATININE - SERUM 0.6 mg/dL (0.6-1.3); MAGNESIUM - SERUM 1.6 mg/dL (1.8-2.4); PROTEIN - SERUM 5.7 g/dL (6.4-8.2); SODIUM 137 mmol/L (136-145); eGFR NON AFRICAN AMERICAN > 90 mL/min (90-120)
[2017-09-21 19:45] LABS: CALC OSMOLALITY 278 mosm/kg (275-300); GLUCOSE 174 mg/dL (74-106); TROPONIN-I < 0.017 ng/mL (0.000-0.060); UREA NITROGEN 14 mg/dL (7-18)
[2017-09-21 20:05] LABS: CKMB 0.2 U/L (0.0-3.6); CREATINE KINASE 14 UL (21-215)
[2017-09-21 20:06] LABS: TROPONIN-I < 0.017 ng/mL (0.000-0.060)
[2017-09-21 20:25] LABS: LYMPHOCYTES 2 % (15-50); MONOCYTES 1 % (2-11); NEUTROPHILS 94 % (40-80); PLATELET ESTIMATE NORMAL
[2017-09-21 20:26] LABS: TARGET CELLS 1+
[2017-09-21 20:27] LABS: ROULEAUX OCC; SCHISTOCYTES OCC
[2017-09-21 23:32] VITALS: BP 128/66; BMI 26.7
[2017-09-22 03:10] LABS: CKMB 0.4 U/L (0.0-3.6); CREATINE KINASE 14 UL (21-215); TROPONIN-I < 0.017 ng/mL (0.000-0.060)
[2017-09-22 04:00] VITALS: BP 171/80
[2017-09-22 06:02] LABS: BASOPHILS 0.1 % (0-2); EOSINOPHILS 0 % (0-7); HEMOGLOBIN 8.9 g/dL (12-16); IMMATURE GRANULOCYTES 1.8 % (0-5); LYMPHOCYTES 4.4 % (15-50); MCH 29.9 pg (26.0-34.0); MCHC 31.8 g/dL (31.0-37.0); MEAN PLATELET VOLUME 9.1 fL (7.4-10.4); MONOCYTES 1.9 % (2-11); NEUTROPHILS 91.8 % (40-80); RBC 2.98 10x6/uL (4.00-5.40); RDW 17.5 % (11.5-14.5)
[2017-09-22 06:17] LABS: PLATELET COUNT 353 10x3/uL (130-400); WBC 19.2 10x3/uL (4.8-10.8)
[2017-09-22 06:28] LABS: ALBUMIN 2.5 g/dL (3.4-5.0); ALKALINE PHOSPHATASE 106 U/L (46-116); ALT (SGPT) 28 U/L (10-68); BILIRUBIN - TOTAL 0.32 mg/dL (0.2-1.3); CALCIUM 9.2 mg/dL (8.5-10.1); CHLORIDE - SERUM 100 mmol/L (98-107); CREATININE - SERUM 0.6 mg/dL (0.6-1.3); POTASSIUM - SERUM 4.5 mmol/L (3.5-5.1); PROTEIN - SERUM 5.9 g/dL (6.4-8.2); SODIUM 135 mmol/L (136-145); UREA NITROGEN 13 mg/dL (7-18); eGFR NON AFRICAN AMERICAN > 90 mL/min (90-120)
[2017-09-22 06:30] LABS: CALC OSMOLALITY 278 mosm/kg (275-300); GLUCOSE 263 mg/dL (74-106)
[2017-09-22 08:55] VITALS: BP 166/79
[2017-09-22 08:59] LABS: CKMB 0.3 U/L (0.0-3.6); CREATINE KINASE 31 UL (21-215); TROPONIN-I < 0.017 ng/mL (0.000-0.060)
[2017-09-22 09:55] LABS: AMYLASE - SERUM 58 U/L (25-115); LIPASE 67 U/L (73-393)
[2017-09-22 10:22] VITALS: BMI 26.6
[2017-09-22 13:05] VITALS: BP 165/77
[2017-09-22 16:00] VITALS: BP 146/75
[2017-09-22 18:26] VITALS: Ht 170.2 cm; Wt 87.7 kg
[2017-09-22 20:00] VITALS: BP 137/67
[2017-09-23] VITALS: BP 127/60
[2017-09-23 04:00] VITALS: BP 132/66
[2017-09-23 07:12] LABS: HEMATOCRIT 30.8 % (36.0-48.0); MCHC 32.5 g/dL (31.0-37.0); MCV 95.4 fL (80.0-100.0); PLATELET COUNT 394 10x3/uL (130-400); RBC 3.23 10x6/uL (4.00-5.40); RDW 17.8 % (11.5-14.5); WBC 28.3 10x3/uL (4.8-10.8)
[2017-09-23 07:27] LABS: ALBUMIN 2.4 g/dL (3.4-5.0); ALKALINE PHOSPHATASE 101 U/L (46-116); ALT (SGPT) 26 U/L (10-68); CALC OSMOLALITY 280 mosm/kg (275-300); CHLORIDE - SERUM 104 mmol/L (98-107); CREATININE - SERUM 0.7 mg/dL (0.6-1.3); GLUCOSE 233 mg/dL (74-106); POTASSIUM - SERUM 4.9 mmol/L (3.5-5.1); SODIUM 136 mmol/L (136-145); eGFR NON AFRICAN AMERICAN > 90 mL/min (90-120)
[2017-09-23 07:34] LABS: UREA NITROGEN 18 mg/dL (7-18)
[2017-09-23 07:52] LABS: LYMPHOCYTES 6 % (15-50); MONOCYTES 8 % (2-11); NEUTROPHILS 86 % (40-80); PLATELET ESTIMATE NORMAL
[2017-09-23 08:49] VITALS: BP 159/73
[2017-09-23 12:56] VITALS: BP 178/81
[2017-09-23 16:23] VITALS: BP 178/87
[2017-09-23 18:34] LABS: APPEARANCE CLOUDY (CLEAR); BILIRUBIN NEGATIVE (NEGATIVE); COLOR DK YELLOW (YELLOW); GLUCOSE NEGATIVE (NEGATIVE); KETONE NEGATIVE (NEGATIVE); NITRITE NEGATIVE (NEGATIVE); PROTEIN TRACE mg/dL (NEGATIVE); SPECIFIC GRAVITY 1.015 (1.005-1.020); UROBILINOGEN NORMAL (NORMAL)
[2017-09-23 18:35] LABS: BACTERIA FEW /hpf (NONE SEEN); EPITHELIAL CELLS 0-5 /hpf (0-5)
[2017-09-23 20:00] VITALS: BP 165/80
[2017-09-24] VITALS (7 sets, daily range): BP systolic 139–178; BP diastolic 75–91
[2017-09-24 06:05] LABS: BASOPHILS 0 % (0-2); EOSINOPHILS 0 % (0-7); HEMATOCRIT 31.7 % (36.0-48.0); HEMOGLOBIN 10.1 g/dL (12-16); IMMATURE GRANULOCYTES 1.3 % (0-5); LYMPHOCYTES 3.3 % (15-50); MCH 30.7 pg (26.0-34.0); MCHC 31.9 g/dL (31.0-37.0); MCV 96.4 fL (80.0-100.0); MEAN PLATELET VOLUME 9.9 fL (7.4-10.4); MONOCYTES 6.1 % (2-11); NEUTROPHILS 89.3 % (40-80); PLATELET COUNT 431 10x3/uL (130-400); RBC 3.29 10x6/uL (4.00-5.40); RDW 17.7 % (11.5-14.5); WBC 22.6 10x3/uL (4.8-10.8)
[2017-09-24 06:17] LABS: ALBUMIN 2.6 g/dL (3.4-5.0); ALKALINE PHOSPHATASE 101 U/L (46-116); ALT (SGPT) 24 U/L (10-68); BILIRUBIN - TOTAL 0.33 mg/dL (0.2-1.3); CALCIUM 9.1 mg/dL (8.5-10.1); CHLORIDE - SERUM 102 mmol/L (98-107); CREATININE - SERUM 0.7 mg/dL (0.6-1.3); PROTEIN - SERUM 6.3 g/dL (6.4-8.2); SODIUM 137 mmol/L (136-145); UREA NITROGEN 22 mg/dL (7-18); eGFR NON AFRICAN AMERICAN > 90 mL/min (90-120)
[2017-09-24 06:18] LABS: CALC OSMOLALITY 278 mosm/kg (275-300); GLUCOSE 131 mg/dL (74-106); POTASSIUM - SERUM 3.9 mmol/L (3.5-5.1)
[2017-09-25 04:00] VITALS: BP 170/79
[2017-09-25 06:41] LABS: BASOPHILS 0.1 % (0-2); EOSINOPHILS 0 % (0-7); HEMATOCRIT 32.5 % (36.0-48.0); HEMOGLOBIN 10.3 g/dL (12-16); IMMATURE GRANULOCYTES 1.5 % (0-5); MCH 30.3 pg (26.0-34.0); MCHC 31.7 g/dL (31.0-37.0); MCV 95.6 fL (80.0-100.0); MONOCYTES 7.1 % (2-11); NEUTROPHILS 86.3 % (40-80); PLATELET COUNT 434 10x3/uL (130-400); RDW 17.6 % (11.5-14.5); WBC 17.7 10x3/uL (4.8-10.8)
[2017-09-25 06:59] LABS: ALBUMIN 2.8 g/dL (3.4-5.0); ANION GAP 14.8 mmol/L (8-16); BILIRUBIN - TOTAL 0.3 mg/dL (0.2-1.3); CALCIUM 9.4 mg/dL (8.5-10.1); CARBON DIOXIDE 24.2 mmol/L (21.0-32.0); PROTEIN - SERUM 6.1 g/dL (6.4-8.2)
[2017-09-25 07:06] LABS: CREATININE - SERUM 0.9 mg/dL (0.6-1.3)
[2017-09-25 08:04] VITALS: BP 178/87
[2017-09-25 12:14] LABS: INR 1.01 (0.85-1.17); PROTIME 12.9 SECONDS (11.6-15.0)
[2017-09-25 16:16] VITALS: BP 173/88
[2017-09-25 20:00] VITALS: BP 165/87
[2017-09-25 23:30] VITALS: BP 161/94
[2017-09-26 06:23] LABS: BASOPHILS 0.1 % (0-2); EOSINOPHILS 0 % (0-7); HEMATOCRIT 27.3 % (36.0-48.0); HEMOGLOBIN 8.7 g/dL (12-16); IMMATURE GRANULOCYTES 1.8 % (0-5); MCH 29.8 pg (26.0-34.0); MCHC 31.9 g/dL (31.0-37.0); MCV 93.5 fL (80.0-100.0); MEAN PLATELET VOLUME 9.7 fL (7.4-10.4); MONOCYTES 7.8 % (2-11); NEUTROPHILS 84.3 % (40-80); PLATELET COUNT 382 10x3/uL (130-400); RBC 2.92 10x6/uL (4.00-5.40); RDW 17.3 % (11.5-14.5); WBC 14.8 10x3/uL (4.8-10.8)
[2017-09-26 06:38] LABS: ALBUMIN 2.4 g/dL (3.4-5.0); ALKALINE PHOSPHATASE 101 U/L (46-116); BILIRUBIN - TOTAL 0.27 mg/dL (0.2-1.3); CALC OSMOLALITY 283 mosm/kg (275-300); CALCIUM 8.6 mg/dL (8.5-10.1); CARBON DIOXIDE 24.1 mmol/L (21.0-32.0); CHLORIDE - SERUM 103 mmol/L (98-107); CREATININE - SERUM 0.7 mg/dL (0.6-1.3); GLUCOSE 226 mg/dL (74-106); POTASSIUM - SERUM 3.8 mmol/L (3.5-5.1); PROTEIN - SERUM 5.5 g/dL (6.4-8.2); SODIUM 137 mmol/L (136-145); UREA NITROGEN 22 mg/dL (7-18); eGFR NON AFRICAN AMERICAN > 90 mL/min (90-120)
[2017-09-26 06:40] LABS: ALT (SGPT) 33 U/L (10-68)
[2017-09-26 10:56] VITALS: BP 192/91
[2017-09-26 14:02] LABS: % SATURATION 8 % (15-55); IRON 25 ug/dl (35-150); TOTAL IRON BIND CAPACITY 297 ug/dl (260-445); UNSAT IRON BIND CAPACITY 272 ug/dl (150-375)
[2017-09-26 15:03] VITALS: BP 159/75
[2017-09-26 16:52] VITALS: BP 177/92
[2017-09-26 20:00] VITALS: BP 143/86
[2017-09-27] VITALS: BP 169/82
[2017-09-27 04:00] VITALS: BP 166/80
[2017-09-27 06:43] LABS: BASOPHILS 0.2 % (0-2); EOSINOPHILS 0 % (0-7); HEMATOCRIT 32.1 % (36.0-48.0); HEMOGLOBIN 9.8 g/dL (12-16); IMMATURE GRANULOCYTES 1.3 % (0-5); LYMPHOCYTES 6.5 % (15-50); MCH 30.2 pg (26.0-34.0); MCHC 30.5 g/dL (31.0-37.0); MEAN PLATELET VOLUME 9.6 fL (7.4-10.4); MONOCYTES 8.4 % (2-11); NEUTROPHILS 83.6 % (40-80); RBC 3.24 10x6/uL (4.00-5.40); RDW 18.2 % (11.5-14.5); WBC 13.4 10x3/uL (4.8-10.8)
[2017-09-27 06:46] LABS: MCV 99.1 fL (80.0-100.0); PLATELET COUNT 232 10x3/uL (130-400)
[2017-09-27 07:00] LABS: ALBUMIN 2.5 g/dL (3.4-5.0); ALKALINE PHOSPHATASE 93 U/L (46-116); ALT (SGPT) 33 U/L (10-68); BILIRUBIN - TOTAL 0.23 mg/dL (0.2-1.3); CALCIUM 8.6 mg/dL (8.5-10.1); CHLORIDE - SERUM 103 mmol/L (98-107); CREATININE - SERUM 0.7 mg/dL (0.6-1.3); PROTEIN - SERUM 5.5 g/dL (6.4-8.2); SODIUM 138 mmol/L (136-145); UREA NITROGEN 21 mg/dL (7-18); eGFR NON AFRICAN AMERICAN > 90 mL/min (90-120)
[2017-09-27 07:01] LABS: CALC OSMOLALITY 290 mosm/kg (275-300); GLUCOSE 323 mg/dL (74-106); POTASSIUM - SERUM 4.5 mmol/L (3.5-5.1)
[2017-09-27 08:07] VITALS: BP 188/79
[2017-09-27 11:57] VITALS: BP 172/77
[2017-09-27 15:29] VITALS: BP 172/77
[2017-09-27 20:55] VITALS: BP 162/82
[2017-09-28 05:40] VITALS: BP 186/91
[2017-09-28 07:00] LABS: ALBUMIN 2.6 g/dL (3.4-5.0); ALKALINE PHOSPHATASE 98 U/L (46-116); ALT (SGPT) 30 U/L (10-68); BILIRUBIN - TOTAL 0.36 mg/dL (0.2-1.3); CALC OSMOLALITY 291 mosm/kg (275-300); CALCIUM 8.7 mg/dL (8.5-10.1); CARBON DIOXIDE 29.9 mmol/L (21.0-32.0); CHLORIDE - SERUM 103 mmol/L (98-107); CREATININE - SERUM 0.6 mg/dL (0.6-1.3); POTASSIUM - SERUM 4.2 mmol/L (3.5-5.1); PROTEIN - SERUM 5.8 g/dL (6.4-8.2); SODIUM 141 mmol/L (136-145); UREA NITROGEN 22 mg/dL (7-18); eGFR NON AFRICAN AMERICAN > 90 mL/min (90-120)
[2017-09-28 07:01] LABS: GLUCOSE 246 mg/dL (74-106)
[2017-09-28 08:39] LABS: BASOPHILS 0.1 % (0-2); EOSINOPHILS 0 % (0-7); HEMATOCRIT 32.1 % (36.0-48.0); HEMOGLOBIN 10.6 g/dL (12-16); IMMATURE GRANULOCYTES 1.4 % (0-5); LYMPHOCYTES 5.5 % (15-50); MCH 30.4 pg (26.0-34.0); MEAN PLATELET VOLUME 11.1 fL (7.4-10.4); MONOCYTES 6.3 % (2-11); NEUTROPHILS 86.7 % (40-80); PLATELET COUNT 354 10x3/uL (130-400); RBC 3.49 10x6/uL (4.00-5.40); RDW 17.4 % (11.5-14.5); WBC 18.2 10x3/uL (4.8-10.8)
[2017-09-28 09:39] VITALS: BP 185/131
[2017-09-28 13:56] VITALS: BP 179/87
[2017-09-28 20:00] VITALS: BP 176/98
[2017-09-29 04:00] VITALS: BP 175/85
[2017-09-29 06:59] LABS: BASOPHILS 0.1 % (0-2); EOSINOPHILS 0.1 % (0-7); HEMATOCRIT 26.6 % (36.0-48.0); HEMOGLOBIN 8.5 g/dL (12-16); LYMPHOCYTES 10.7 % (15-50); MCH 29.8 pg (26.0-34.0); MCV 93.3 fL (80.0-100.0); MEAN PLATELET VOLUME 9.2 fL (7.4-10.4); MONOCYTES 6.2 % (2-11); NEUTROPHILS 81.9 % (40-80); PLATELET COUNT 309 10x3/uL (130-400); RBC 2.85 10x6/uL (4.00-5.40); RDW 17.7 % (11.5-14.5); WBC 19.1 10x3/uL (4.8-10.8)
[2017-09-29 07:04] LABS: ALBUMIN 2.2 g/dL (3.4-5.0); ALKALINE PHOSPHATASE 88 U/L (46-116); ALT (SGPT) 27 U/L (10-68); BILIRUBIN - TOTAL 0.38 mg/dL (0.2-1.3); CALCIUM 8.3 mg/dL (8.5-10.1); CARBON DIOXIDE 31.5 mmol/L (21.0-32.0); CHLORIDE - SERUM 104 mmol/L (98-107); CREATININE - SERUM 0.5 mg/dL (0.6-1.3); POTASSIUM - SERUM 3.8 mmol/L (3.5-5.1); PROTEIN - SERUM 5.2 g/dL (6.4-8.2); SODIUM 141 mmol/L (136-145); eGFR NON AFRICAN AMERICAN > 90 mL/min (90-120)
[2017-09-29 07:06] LABS: CALC OSMOLALITY 281 mosm/kg (275-300); GLUCOSE 98 mg/dL (74-106); UREA NITROGEN 16 mg/dL (7-18)
[2017-09-29 08:28] VITALS: BP 126/90
[2017-09-29 09:16] LABS: FOLATE (FOLIC ACID) - SERUM 10.3 ng/mL (>3.0)
[2017-09-29 20:00] VITALS: BP 136/74
[2017-09-30 04:00] VITALS: BP 140/73
[2017-09-30 05:03] LABS: BASOPHILS 0.1 % (0-2); EOSINOPHILS 1.5 % (0-7); HEMATOCRIT 28.8 % (36.0-48.0); HEMOGLOBIN 9.3 g/dL (12-16); IMMATURE GRANULOCYTES 1.3 % (0-5); LYMPHOCYTES 13.6 % (15-50); MCH 30.2 pg (26.0-34.0); MCHC 32.3 g/dL (31.0-37.0); MCV 93.5 fL (80.0-100.0); MEAN PLATELET VOLUME 9.4 fL (7.4-10.4); MONOCYTES 5.6 % (2-11); NEUTROPHILS 77.9 % (40-80); PLATELET COUNT 312 10x3/uL (130-400); RBC 3.08 10x6/uL (4.00-5.40); RDW 17.9 % (11.5-14.5); WBC 15.1 10x3/uL (4.8-10.8)
[2017-09-30 05:33] LABS: ALBUMIN 2.3 g/dL (3.4-5.0); ALKALINE PHOSPHATASE 85 U/L (46-116); ALT (SGPT) 29 U/L (10-68); CALCIUM 8.6 mg/dL (8.5-10.1); CHLORIDE - SERUM 99 mmol/L (98-107); CREATININE - SERUM 0.5 mg/dL (0.6-1.3); GLUCOSE 101 mg/dL (74-106); PROTEIN - SERUM 5.5 g/dL (6.4-8.2); SODIUM 141 mmol/L (136-145); eGFR NON AFRICAN AMERICAN > 90 mL/min (90-120)
[2017-09-30 05:34] LABS: CALC OSMOLALITY 278 mosm/kg (275-300); POTASSIUM - SERUM 3.1 mmol/L (3.5-5.1); UREA NITROGEN 7 mg/dL (7-18)
[2017-09-30 08:24] VITALS: BP 141/76
[2017-09-30 12:44] VITALS: BP 149/64
== END 2017-09-30 16:02 | disposition home health service (06) | DRG 196 ==
LOC: D.ER 17:00 → D.MS 20:12 → D.EDHOLD 20:12 → D.MS 21:06
PROVIDERS: Family Medicine; Family Medicine Adult Medicine; Physician Assistant Medical
PROC: 05HB33Z Insertion of Infusion Device into Right Basilic Vein, Percutaneous Approach (ICD-10-PCS; principal; 2017-09-22)
PROC: B54MZZA Ultrasonography of Right Upper Extremity Veins, Guidance (ICD-10-PCS; 2017-09-22)
DX: J84.114 Acute interstitial pneumonitis (principal); J18.9 Pneumonia, unspecified organism; J96.21 Acute and chronic respiratory failure with hypoxia; I50.33 Acute on chronic diastolic (congestive) heart failure; J44.0 Chronic obstructive pulmonary disease with (acute) lower respiratory infection; J44.1 Chronic obstructive pulmonary disease with (acute) exacerbation; E87.1 Hypo-osmolality and hyponatremia; F17.203 Nicotine dependence unspecified, with withdrawal; K86.1 Other chronic pancreatitis; R13.10 Dysphagia, unspecified; E87.6 Hypokalemia; M06.9 Rheumatoid arthritis, unspecified; K86.81 Exocrine pancreatic insufficiency; J84.89 Other specified interstitial pulmonary diseases; G62.9 Polyneuropathy, unspecified; R00.0 Tachycardia, unspecified; Z99.81 Dependence on supplemental oxygen; Y95 Nosocomial condition

== ENCOUNTER 2017-11-29 09:42 | Inpatient (IN) | payer MEDICARE ==
[~2017-11-29] VITALS: Ht 170.2 cm; Wt 78.9 kg
--- NOTE | ~2017-11-29 | CN ---
PATIENT NAME:NINA ODELL MEDICAL RECORD: [id number] : 66 LOCATION:D.MS Frank2200 ADMIT DATE: 11/29/17 ACCOUNT: [id number] CONSULTING PHYSICIAN: NAHEED PEDERSON MD REFERRING PHYSICIAN: AJ CEDILLO MD DATE OF CONSULTATION: 11/30/2017 CONSULT REQUESTING PHYSICIAN: Aj Cedillo MD REASON FOR CONSULTATION: Pqqgz-xs-rngeuoh hypoxic respiratory failure, pneumonia. HISTORY OF PRESENT ILLNESS: Ms. Odell is a 47-year-old -[place]oven[place] female, very well known to our service. The patient does have pulmonary fibrosis, chronic pancreatitis, recurrent pneumonia, and respiratory failure. The last time the patient was admitted in September 2017. According to the patient, she is sick for the last 6-7 days. She is coughing. She is wheezing. She has shortness of breath with mild exertion. Yesterday, she came in to the ER and admitted with acute exacerbation of COPD. She is coughing with yellowish color sputum. She has shortness of breath with mild exertion. Denies any chest pain. REVIEW OF THE SYSTEMS: Mainly in the history of present illness. PAST MEDICAL HISTORY: 1. Chronic hypoxic respiratory failure. 2. COPD. 3. Mixed connective tissue disorder. 4. Pulmonary fibrosis. 5. Rheumatoid arthritis. 6. Gastroesophageal reflux disease. 7. Diverticulitis. 8. History of chronic pancreatitis. PAST SURGICAL HISTORY: Status post colostomy for intestinal obstruction at [facility]. ALLERGIES: SHE IS ALLERGIC TO LATEX. MEDICATIONS: [employer] was reviewed. PERSONAL AND SOCIAL HISTORY: The patient is an ex-smoker. She is nondrinker. FAMILY HISTORY: Noncontributory. Probably she is still smoking. PHYSICAL EXAMINATION: GENERAL: Now, the patient is lying comfortably in bed. She is not in acute distress. VITAL SIGNS: The blood pressure is 115/89, pulse is 100, respiration is 14, temperature is 98.4, and SpO2 is 100% on 3 liters nasal cannula. HEENT: Conjunctivae are pink. Sclerae are not icteric. NECK: Neck is supple. No JVD. CHEST: There is prolonged expiration with wheezing. There are also bibasal crackles. HEART: Rhythm regular. Normal sound. No murmur. ABDOMEN: Abdomen is soft. Bowel sounds present. No hepatosplenomegaly. CONSULT REPORT [id number] NINA ODELL RECTAL: Deferred. EXTREMITIES: No cyanosis. No clubbing. No pedal edema. SKIN: The skin is warm. Normal turgor. CENTRAL NERVOUS SYSTEM: The patient is awake and alert. There is no obvious cranial nerve abnormality. The gait was not tested. CHEST RADIOGRAPH: There is increased interstitial marking. There is no consolidation as such. LABORATORY DATA: CBC; WBC 17.9, hemoglobin 10, hematocrit 30.9, and platelet count of 475. Chemistry; sodium 136, potassium is 3.7, BUN is 3, creatinine is 0.7. ABG on admission; pH 7.47, pCO2 was 35.6, pO2 was 124, bicarb was 25.9 and this was done on 4 liters nasal cannula. IMPRESSION: 1. Qnuyk-dw-rzpeeoh hypoxic respiratory failure. 2. Acute exacerbation of COPD. 3. Pneumonia, most likely hospital-acquired pneumonia due to recurrent hospitalization. 4. Pulmonary fibrosis. 5. Mixed connective tissue disorder. 6. Rheumatoid arthritis. RECOMMENDATION: 1. Start methylprednisolone IV. Discontinue Rocephin and Zithromax. Start on vancomycin, cefepime, and Levaquin to cover for hospital-acquired pneumonia. 2. Xopenex nebulizer q. 6 hourly, ipratropium nebulizer q. 6 hourly, Brovana and budesonide nebulizer b.i.d., Mucinex DM two tablets b.i.d. Followup labs and chest radiograph. Dr. Cedillo, thank you for involving me in the care of Ms. Odell. TRANSINT:[id number] Voice Confirmation ID: [id number] DOCUMENT ID: [id number] NAHEED PEDERSON MD at 1806 CC: [id number] DICTATION DATE: 11/30/17 1400 CELL OPERATION SUPERVISOR: 11/30/17 1845 DIS IN 12/09/17 [place] [id number] [place] [id number]
[2017-11-29 10:33] LABS: BASOPHILS 0.1 % (0-2); EOSINOPHILS 0.4 % (0-7); HEMATOCRIT 30.9 % (36.0-48.0); IMMATURE GRANULOCYTES 1.1 % (0-5); LYMPHOCYTES 19.5 % (15-50); MCH 30.8 pg (26.0-34.0); MCHC 32.4 g/dL (31.0-37.0); MCV 95.1 fL (80.0-100.0); MONOCYTES 10.3 % (2-11); NEUTROPHILS 68.6 % (40-80); RBC 3.25 10x6/uL (4.00-5.40); RDW 19.2 % (11.5-14.5); WBC 17.9 10x3/uL (4.8-10.8)
[2017-11-29 10:48] LABS: ALBUMIN 1.9 g/dL (3.4-5.0); ALKALINE PHOSPHATASE 155 U/L (46-116); ALT (SGPT) 8 U/L (10-68); BILIRUBIN - TOTAL 0.44 mg/dL (0.2-1.3); CALC OSMOLALITY 273 mosm/kg (275-300); CALCIUM 8.8 mg/dL (8.5-10.1); CARBON DIOXIDE 28.9 mmol/L (21.0-32.0); CHLORIDE - SERUM 98 mmol/L (98-107); CREATININE - SERUM 0.7 mg/dL (0.6-1.3); POTASSIUM - SERUM 3.6 mmol/L (3.5-5.1); PROTEIN - SERUM 6.8 g/dL (6.4-8.2); SODIUM 137 mmol/L (136-145); UREA NITROGEN 4 mg/dL (7-18); eGFR NON AFRICAN AMERICAN > 90 mL/min (90-120)
[2017-11-29 10:51] LABS: GLUCOSE 156 mg/dL (74-106)
[2017-11-29 10:57] LABS: PLATELET COUNT 474 10x3/uL (130-400)
[2017-11-29 16:35] VITALS: BP 145/75
[2017-11-29 18:19] VITALS: BP 145/75; BMI 27.3
[2017-11-29 21:12] VITALS: BP 118/74
[2017-11-30] VITALS (7 sets, daily range): BP systolic 83–129; BP diastolic 53–89; BMI 27.2
[2017-11-30 06:08] LABS: CALC OSMOLALITY 270 mosm/kg (275-300); CALCIUM 8.3 mg/dL (8.5-10.1); CARBON DIOXIDE 31.8 mmol/L (21.0-32.0); CHLORIDE - SERUM 97 mmol/L (98-107); CREATININE - SERUM 0.7 mg/dL (0.6-1.3); GLUCOSE 126 mg/dL (74-106); POTASSIUM - SERUM 3.1 mmol/L (3.5-5.1); SODIUM 136 mmol/L (136-145); UREA NITROGEN 3 mg/dL (7-18); eGFR NON AFRICAN AMERICAN > 90 mL/min (90-120)
[2017-11-30 06:14] LABS: BASOPHILS 0.1 % (0-2); EOSINOPHILS 0.9 % (0-7); HEMATOCRIT 28.9 % (36.0-48.0); IMMATURE GRANULOCYTES 1.3 % (0-5); LYMPHOCYTES 15.4 % (15-50); MCH 29.2 pg (26.0-34.0); MCHC 31.1 g/dL (31.0-37.0); MCV 93.8 fL (80.0-100.0); MEAN PLATELET VOLUME 8.9 fL (7.4-10.4); MONOCYTES 8.3 % (2-11); PLATELET COUNT 512 10x3/uL (130-400); RBC 3.08 10x6/uL (4.00-5.40); RDW 18.9 % (11.5-14.5); WBC 20.9 10x3/uL (4.8-10.8)
[2017-12-01 05:03] LABS: BASOPHILS 0 % (0-2); EOSINOPHILS 0 % (0-7); HEMATOCRIT 27.7 % (36.0-48.0); HEMOGLOBIN 8.8 g/dL (12-16); IMMATURE GRANULOCYTES 1.4 % (0-5); LYMPHOCYTES 10.9 % (15-50); MCHC 31.8 g/dL (31.0-37.0); MCV 94.5 fL (80.0-100.0); MEAN PLATELET VOLUME 8.9 fL (7.4-10.4); MONOCYTES 1.7 % (2-11); PLATELET COUNT 520 10x3/uL (130-400); RBC 2.93 10x6/uL (4.00-5.40); RDW 18.6 % (11.5-14.5); WBC 20.7 10x3/uL (4.8-10.8)
[2017-12-01 05:39] LABS: CALCIUM 8.7 mg/dL (8.5-10.1); CARBON DIOXIDE 27.9 mmol/L (21.0-32.0); CHLORIDE - SERUM 98 mmol/L (98-107); CREATININE - SERUM 0.7 mg/dL (0.6-1.3); SODIUM 135 mmol/L (136-145); eGFR NON AFRICAN AMERICAN > 90 mL/min (90-120)
[2017-12-01 05:40] VITALS: BP 122/56
[2017-12-01 05:42] LABS: CALC OSMOLALITY 278 mosm/kg (275-300); GLUCOSE 290 mg/dL (74-106); POTASSIUM - SERUM 4.8 mmol/L (3.5-5.1); UREA NITROGEN 7 mg/dL (7-18)
[2017-12-01 09:20] VITALS: BP 150/90
[2017-12-01 13:15] VITALS: BP 151/88
[2017-12-01 17:01] VITALS: BP 156/94
[2017-12-01 22:17] VITALS: BP 137/75
[2017-12-02 03:56] VITALS: BP 136/69
[2017-12-02 08:06] VITALS: BP 139/80
[2017-12-02 12:44] VITALS: BP 176/102
[2017-12-02 15:19] LABS: BASOPHILS 0.1 % (0-2); EOSINOPHILS 0 % (0-7); HEMATOCRIT 26.7 % (36.0-48.0); HEMOGLOBIN 8.4 g/dL (12-16); IMMATURE GRANULOCYTES 1.8 % (0-5); LYMPHOCYTES 10.1 % (15-50); MCH 29.3 pg (26.0-34.0); MCHC 31.5 g/dL (31.0-37.0); MEAN PLATELET VOLUME 8.5 fL (7.4-10.4); MONOCYTES 5.1 % (2-11); NEUTROPHILS 82.9 % (40-80); PLATELET COUNT 525 10x3/uL (130-400); RBC 2.87 10x6/uL (4.00-5.40); RDW 18.4 % (11.5-14.5); WBC 18.6 10x3/uL (4.8-10.8)
[2017-12-02 15:33] LABS: CALC OSMOLALITY 277 mosm/kg (275-300); CARBON DIOXIDE 33.1 mmol/L (21.0-32.0); CHLORIDE - SERUM 101 mmol/L (98-107); CREATININE - SERUM 0.7 mg/dL (0.6-1.3); GLUCOSE 161 mg/dL (74-106); POTASSIUM - SERUM 4.2 mmol/L (3.5-5.1); SODIUM 138 mmol/L (136-145); UREA NITROGEN 10 mg/dL (7-18); eGFR NON AFRICAN AMERICAN > 90 mL/min (90-120)
[2017-12-02 16:25] VITALS: BP 147/66
[2017-12-02 21:38] VITALS: BP 125/78
[2017-12-03 05:45] LABS: BASOPHILS 0.1 % (0-2); EOSINOPHILS 0 % (0-7); HEMATOCRIT 27.3 % (36.0-48.0); HEMOGLOBIN 8.4 g/dL (12-16); IMMATURE GRANULOCYTES 2.6 % (0-5); LYMPHOCYTES 11.3 % (15-50); MCH 28.8 pg (26.0-34.0); MCHC 30.8 g/dL (31.0-37.0); MCV 93.5 fL (80.0-100.0); MEAN PLATELET VOLUME 9.1 fL (7.4-10.4); MONOCYTES 4.4 % (2-11); NEUTROPHILS 81.6 % (40-80); PLATELET COUNT 573 10x3/uL (130-400); RBC 2.92 10x6/uL (4.00-5.40); RDW 18.5 % (11.5-14.5)
[2017-12-03 05:54] LABS: WBC 11.8 10x3/uL (4.8-10.8)
[2017-12-03 05:57] LABS: CALC OSMOLALITY 283 mosm/kg (275-300); CALCIUM 8.9 mg/dL (8.5-10.1); CARBON DIOXIDE 31.8 mmol/L (21.0-32.0); CHLORIDE - SERUM 95 mmol/L (98-107); CREATININE - SERUM 0.7 mg/dL (0.6-1.3); POTASSIUM - SERUM 4.2 mmol/L (3.5-5.1); SODIUM 134 mmol/L (136-145); UREA NITROGEN 11 mg/dL (7-18); eGFR NON AFRICAN AMERICAN > 90 mL/min (90-120)
[2017-12-03 06:15] LABS: GLUCOSE 399 mg/dL (74-106)
[2017-12-03 08:14] VITALS: BP 150/73
[2017-12-03 12:27] VITALS: BP 164/86
[2017-12-03 15:59] VITALS: BP 148/64
[2017-12-03 21:15] VITALS: BP 135/69
[2017-12-04] VITALS (7 sets, daily range): BP systolic 124–174; BP diastolic 70–85
[2017-12-04 05:52] LABS: BASOPHILS 0.1 % (0-2); EOSINOPHILS 0 % (0-7); HEMATOCRIT 27.1 % (36.0-48.0); HEMOGLOBIN 8.3 g/dL (12-16); IMMATURE GRANULOCYTES 1.6 % (0-5); LYMPHOCYTES 11.2 % (15-50); MCH 28.5 pg (26.0-34.0); MCHC 30.6 g/dL (31.0-37.0); MCV 93.1 fL (80.0-100.0); MEAN PLATELET VOLUME 8.8 fL (7.4-10.4); MONOCYTES 7.6 % (2-11); NEUTROPHILS 79.5 % (40-80); PLATELET COUNT 583 10x3/uL (130-400); RBC 2.91 10x6/uL (4.00-5.40); RDW 18.3 % (11.5-14.5)
[2017-12-04 06:22] LABS: ALBUMIN 2.1 g/dL (3.4-5.0); ALKALINE PHOSPHATASE 102 U/L (46-116); ALT (SGPT) 9 U/L (10-68); CALCIUM 8.9 mg/dL (8.5-10.1); CARBON DIOXIDE 34.4 mmol/L (21.0-32.0); CHLORIDE - SERUM 95 mmol/L (98-107); CREATININE - SERUM 0.8 mg/dL (0.6-1.3); PROTEIN - SERUM 6.1 g/dL (6.4-8.2); SODIUM 132 mmol/L (136-145); UREA NITROGEN 11 mg/dL (7-18); eGFR NON AFRICAN AMERICAN 81 mL/min (90-120)
[2017-12-04 07:03] LABS: CALC OSMOLALITY 287 mosm/kg (275-300)
[2017-12-04 07:04] LABS: GLUCOSE 532 mg/dL (74-106)
[2017-12-05 06:04] LABS: BASOPHILS 0.1 % (0-2); EOSINOPHILS 0 % (0-7); HEMATOCRIT 27.6 % (36.0-48.0); HEMOGLOBIN 8.6 g/dL (12-16); IMMATURE GRANULOCYTES 2.4 % (0-5); LYMPHOCYTES 10.4 % (15-50); MCHC 31.2 g/dL (31.0-37.0); MCV 92.9 fL (80.0-100.0); MEAN PLATELET VOLUME 8.9 fL (7.4-10.4); MONOCYTES 5.9 % (2-11); NEUTROPHILS 81.2 % (40-80); PLATELET COUNT 651 10x3/uL (130-400); RBC 2.97 10x6/uL (4.00-5.40); RDW 18.3 % (11.5-14.5)
[2017-12-05 06:07] LABS: WBC 19.5 10x3/uL (4.8-10.8)
[2017-12-05 06:45] LABS: ALBUMIN 2.2 g/dL (3.4-5.0); ALKALINE PHOSPHATASE 91 U/L (46-116); ALT (SGPT) 12 U/L (10-68); CALC OSMOLALITY 280 mosm/kg (275-300); CALCIUM 8.9 mg/dL (8.5-10.1); CHLORIDE - SERUM 96 mmol/L (98-107); CREATININE - SERUM 0.8 mg/dL (0.6-1.3); GLUCOSE 357 mg/dL (74-106); POTASSIUM - SERUM 4.5 mmol/L (3.5-5.1); SODIUM 133 mmol/L (136-145); UREA NITROGEN 16 mg/dL (7-18); eGFR NON AFRICAN AMERICAN 81 mL/min (90-120)
[2017-12-05 08:10] VITALS: BP 143/62
[2017-12-05 13:06] VITALS: BP 170/90
[2017-12-05 16:04] VITALS: BP 161/73
[2017-12-05 19:58] VITALS: BP 128/74
[2017-12-06 00:04] VITALS: BP 164/81
[2017-12-06 07:24] LABS: BASOPHILS 0.1 % (0-2); EOSINOPHILS 0 % (0-7); HEMATOCRIT 28.7 % (36.0-48.0); IMMATURE GRANULOCYTES 2.2 % (0-5); LYMPHOCYTES 11.8 % (15-50); MCH 29.2 pg (26.0-34.0); MCHC 31.4 g/dL (31.0-37.0); MCV 93.2 fL (80.0-100.0); MEAN PLATELET VOLUME 8.7 fL (7.4-10.4); NEUTROPHILS 77.9 % (40-80); PLATELET COUNT 604 10x3/uL (130-400); RBC 3.08 10x6/uL (4.00-5.40); RDW 18.6 % (11.5-14.5); WBC 16.2 10x3/uL (4.8-10.8)
[2017-12-06 07:48] LABS: ALBUMIN 2.2 g/dL (3.4-5.0); ALKALINE PHOSPHATASE 87 U/L (46-116); BILIRUBIN - TOTAL 0.23 mg/dL (0.2-1.3); CALCIUM 9.1 mg/dL (8.5-10.1); CARBON DIOXIDE 31.4 mmol/L (21.0-32.0); CHLORIDE - SERUM 98 mmol/L (98-107); CREATININE - SERUM 0.7 mg/dL (0.6-1.3); POTASSIUM - SERUM 4.2 mmol/L (3.5-5.1); PROTEIN - SERUM 6.1 g/dL (6.4-8.2); SODIUM 136 mmol/L (136-145); UREA NITROGEN 17 mg/dL (7-18); eGFR NON AFRICAN AMERICAN > 90 mL/min (90-120)
[2017-12-06 07:52] LABS: ALT (SGPT) 16 U/L (10-68); CALC OSMOLALITY 281 mosm/kg (275-300); GLUCOSE 244 mg/dL (74-106)
[2017-12-06 08:20] VITALS: BP 161/87
[2017-12-06 12:48] VITALS: BP 145/84
[2017-12-06 16:55] VITALS: BP 163/90
[2017-12-06 20:00] VITALS: BP 115/83
[2017-12-07 04:00] VITALS: BP 147/74
[2017-12-07 04:58] LABS: BASOPHILS 0.1 % (0-2); EOSINOPHILS 0 % (0-7); HEMATOCRIT 26.7 % (36.0-48.0); HEMOGLOBIN 8.3 g/dL (12-16); IMMATURE GRANULOCYTES 2.8 % (0-5); LYMPHOCYTES 7.6 % (15-50); MCHC 31.1 g/dL (31.0-37.0); MCV 93.4 fL (80.0-100.0); MEAN PLATELET VOLUME 8.6 fL (7.4-10.4); MONOCYTES 8.1 % (2-11); NEUTROPHILS 81.4 % (40-80); PLATELET COUNT 555 10x3/uL (130-400); RBC 2.86 10x6/uL (4.00-5.40); RDW 18.8 % (11.5-14.5)
[2017-12-07 05:03] LABS: ALBUMIN 2.1 g/dL (3.4-5.0); ALKALINE PHOSPHATASE 71 U/L (46-116); ALT (SGPT) 16 U/L (10-68); BILIRUBIN - TOTAL 0.22 mg/dL (0.2-1.3); CALC OSMOLALITY 282 mosm/kg (275-300); CALCIUM 9.2 mg/dL (8.5-10.1); CARBON DIOXIDE 30.7 mmol/L (21.0-32.0); CHLORIDE - SERUM 101 mmol/L (98-107); CREATININE - SERUM 0.6 mg/dL (0.6-1.3); GLUCOSE 225 mg/dL (74-106); POTASSIUM - SERUM 3.9 mmol/L (3.5-5.1); PROTEIN - SERUM 5.8 g/dL (6.4-8.2); SODIUM 138 mmol/L (136-145); eGFR NON AFRICAN AMERICAN > 90 mL/min (90-120)
[2017-12-07 05:13] LABS: UREA NITROGEN 12 mg/dL (7-18)
[2017-12-07 08:06] VITALS: BP 159/76
[2017-12-07 13:15] VITALS: BP 177/87
[2017-12-07 16:13] VITALS: BP 164/71
[2017-12-07 20:00] VITALS: BP 138/75
[2017-12-08 00:33] VITALS: BP 155/70
[2017-12-08 04:00] VITALS: BP 154/79
[2017-12-08 04:07] LABS: BASOPHILS 0.1 % (0-2); EOSINOPHILS 0.1 % (0-7); HEMATOCRIT 24.5 % (36.0-48.0); HEMOGLOBIN 7.7 g/dL (12-16); IMMATURE GRANULOCYTES 3.7 % (0-5); LYMPHOCYTES 15.8 % (15-50); MCH 29.5 pg (26.0-34.0); MCHC 31.4 g/dL (31.0-37.0); MCV 93.9 fL (80.0-100.0); MEAN PLATELET VOLUME 8.5 fL (7.4-10.4); MONOCYTES 10.8 % (2-11); NEUTROPHILS 69.5 % (40-80); PLATELET COUNT 486 10x3/uL (130-400); RBC 2.61 10x6/uL (4.00-5.40); RDW 18.9 % (11.5-14.5); WBC 18.9 10x3/uL (4.8-10.8)
[2017-12-08 04:24] LABS: ALBUMIN 1.9 g/dL (3.4-5.0); ALKALINE PHOSPHATASE 61 U/L (46-116); ALT (SGPT) 15 U/L (10-68); BILIRUBIN - TOTAL 0.26 mg/dL (0.2-1.3); CALCIUM 8.7 mg/dL (8.5-10.1); CARBON DIOXIDE 32.1 mmol/L (21.0-32.0); CHLORIDE - SERUM 102 mmol/L (98-107); CREATININE - SERUM 0.6 mg/dL (0.6-1.3); POTASSIUM - SERUM 3.7 mmol/L (3.5-5.1); SODIUM 140 mmol/L (136-145); eGFR NON AFRICAN AMERICAN > 90 mL/min (90-120)
[2017-12-08 04:28] LABS: CALC OSMOLALITY 283 mosm/kg (275-300); GLUCOSE 172 mg/dL (74-106); UREA NITROGEN 16 mg/dL (7-18)
[2017-12-08 08:42] VITALS: BP 162/88
[2017-12-08 12:43] VITALS: BP 173/76
[2017-12-08 16:47] VITALS: BP 142/81
[2017-12-08 20:00] VITALS: BP 139/75
[2017-12-09 04:00] VITALS: BP 138/70
[2017-12-09 07:34] LABS: BASOPHILS 0.1 % (0-2); EOSINOPHILS 0 % (0-7); HEMATOCRIT 26.6 % (36.0-48.0); HEMOGLOBIN 8.4 g/dL (12-16); LYMPHOCYTES 9.3 % (15-50); MCHC 31.6 g/dL (31.0-37.0); MEAN PLATELET VOLUME 8.7 fL (7.4-10.4); MONOCYTES 8.2 % (2-11); NEUTROPHILS 80.4 % (40-80); PLATELET COUNT 478 10x3/uL (130-400); RDW 18.7 % (11.5-14.5); WBC 16.8 10x3/uL (4.8-10.8)
[2017-12-09 07:41] LABS: MCV 91.7 fL (80.0-100.0)
[2017-12-09 07:44] LABS: ALBUMIN 2.2 g/dL (3.4-5.0); ALKALINE PHOSPHATASE 72 U/L (46-116); ALT (SGPT) 18 U/L (10-68); BILIRUBIN - TOTAL 0.23 mg/dL (0.2-1.3); CALC OSMOLALITY 281 mosm/kg (275-300); CALCIUM 9.1 mg/dL (8.5-10.1); CARBON DIOXIDE 34.8 mmol/L (21.0-32.0); CHLORIDE - SERUM 99 mmol/L (98-107); CREATININE - SERUM 0.6 mg/dL (0.6-1.3); GLUCOSE 181 mg/dL (74-106); MAGNESIUM - SERUM 1.6 mg/dL (1.8-2.4); PROTEIN - SERUM 5.7 g/dL (6.4-8.2); SODIUM 138 mmol/L (136-145); UREA NITROGEN 14 mg/dL (7-18); eGFR NON AFRICAN AMERICAN > 90 mL/min (90-120)
[2017-12-09 07:46] LABS: POTASSIUM - SERUM 4.6 mmol/L (3.5-5.1)
[2017-12-09 08:49] VITALS: BP 126/80
[2017-12-09] MEDS ORDERED: BACTRIM DS TABL1 TAB PO (10:23)
[2017-12-09] MEDS ORDERED: PREDNISONE20 MG PO (10:24)
[2017-12-09 11:22] VITALS: Ht 170.2 cm; Wt 78.9 kg
== END 2017-12-09 14:38 | disposition home or self-care (01) | DRG 177 ==
LOC: D.ER 09:42 → D.MS 11:16 → D.EDHOLD 11:16 → D.MS 11:33
PROVIDERS: Emergency Medicine; Family Medicine; Internal Medicine Nephrology
PROC: 05HB33Z Insertion of Infusion Device into Right Basilic Vein, Percutaneous Approach (ICD-10-PCS; principal; 2017-12-07)
PROC: B54MZZA Ultrasonography of Right Upper Extremity Veins, Guidance (ICD-10-PCS; 2017-12-07)
DX: J15.212 Pneumonia due to Methicillin resistant Staphylococcus aureus (principal); J96.21 Acute and chronic respiratory failure with hypoxia; J96.22 Acute and chronic respiratory failure with hypercapnia; F17.203 Nicotine dependence unspecified, with withdrawal; I50.32 Chronic diastolic (congestive) heart failure; K86.1 Other chronic pancreatitis; E87.1 Hypo-osmolality and hyponatremia; J44.0 Chronic obstructive pulmonary disease with (acute) lower respiratory infection; J44.1 Chronic obstructive pulmonary disease with (acute) exacerbation; I11.0 Hypertensive heart disease with heart failure; I27.20 Pulmonary hypertension, unspecified; I34.0 Nonrheumatic mitral (valve) insufficiency; K21.9 Gastro-esophageal reflux disease without esophagitis; M06.9 Rheumatoid arthritis, unspecified; J84.112 Idiopathic pulmonary fibrosis; E87.6 Hypokalemia; E83.42 Hypomagnesemia; G89.4 Chronic pain syndrome; Z86.19 Personal history of other infectious and parasitic diseases; F41.9 Anxiety disorder, unspecified; J47.9 Bronchiectasis, uncomplicated; R13.10 Dysphagia, unspecified; E11.9 Type 2 diabetes mellitus without complications

== ENCOUNTER 2018-01-19 02:19 | Inpatient (IN) | payer MEDICARE ==
[~2018-01-19] VITALS: Ht 170.2 cm; Wt 80.5 kg
[2018-01-19 02:45] VITALS: BP 138/90
[2018-01-19 03:03] LABS: BASOPHILS 0.1 % (0-2); EOSINOPHILS 0.5 % (0-7); HEMATOCRIT 32.7 % (36.0-48.0); HEMOGLOBIN 10.3 g/dL (12-16); IMMATURE GRANULOCYTES 0.3 % (0-5); LYMPHOCYTES 23.2 % (15-50); MCH 28.7 pg (26.0-34.0); MCHC 31.5 g/dL (31.0-37.0); MCV 91.1 fL (80.0-100.0); MEAN PLATELET VOLUME 9.1 fL (7.4-10.4); MONOCYTES 7.8 % (2-11); NEUTROPHILS 68.1 % (40-80); PLATELET COUNT 435 10x3/uL (130-400); RBC 3.59 10x6/uL (4.00-5.40)
[2018-01-19 03:16] LABS: ALBUMIN 2.4 g/dL (3.4-5.0); ALKALINE PHOSPHATASE 145 U/L (46-116); ALT (SGPT) 9 U/L (10-68); BILIRUBIN - TOTAL 0.47 mg/dL (0.2-1.3); CALC OSMOLALITY 275 mosm/kg (275-300); CALCIUM 8.5 mg/dL (8.5-10.1); CARBON DIOXIDE 33.8 mmol/L (21.0-32.0); CHLORIDE - SERUM 97 mmol/L (98-107); CREATININE - SERUM 0.5 mg/dL (0.6-1.3); PROTEIN - SERUM 6.6 g/dL (6.4-8.2); SODIUM 139 mmol/L (136-145); UREA NITROGEN 6 mg/dL (7-18); eGFR NON AFRICAN AMERICAN > 90 mL/min (90-120)
[2018-01-19 03:18] LABS: GLUCOSE 96 mg/dL (74-106)
[2018-01-19 03:20] LABS: AMYLASE - SERUM 82 U/L (25-115); LIPASE 419 U/L (73-393); TROPONIN-I < 0.017 ng/mL (0.000-0.060)
[2018-01-19 03:53] LABS: APPEARANCE CLOUDY (CLEAR); BILIRUBIN NEGATIVE (NEGATIVE); COLOR DK YELLOW (YELLOW); GLUCOSE NEGATIVE (NEGATIVE); KETONE LARGE mg/dL (NEGATIVE); NITRITE NEGATIVE (NEGATIVE); PROTEIN 1+ mg/dL (NEGATIVE); UROBILINOGEN NORMAL (NORMAL)
[2018-01-19 03:54] LABS: BACTERIA MODERATE /hpf (NONE SEEN); EPITHELIAL CELLS 0-5 /hpf (0-5); MUCUS >1+ /lpf (NONE SEEN); RED CELLS - URINE 0-5 /hpf (0-5)
[2018-01-19 04:00] VITALS: BP 141/76
[2018-01-19 07:00] VITALS: BP 143/73
[2018-01-19 07:40] VITALS: BP 134/83
[2018-01-19 11:00] VITALS: BP 137/68
[2018-01-19 18:47] VITALS: Ht 170.2 cm; Wt 80.5 kg
[2018-01-19 22:40] VITALS: BP 123/62
[2018-01-20 01:14] VITALS: BP 123/69
[2018-01-20 04:47] LABS: BASOPHILS 0.2 % (0-2); EOSINOPHILS 2.2 % (0-7); HEMATOCRIT 31.4 % (36.0-48.0); HEMOGLOBIN 9.7 g/dL (12-16); IMMATURE GRANULOCYTES 0.5 % (0-5); LYMPHOCYTES 31.6 % (15-50); MCH 28.3 pg (26.0-34.0); MCHC 30.9 g/dL (31.0-37.0); MCV 91.5 fL (80.0-100.0); NEUTROPHILS 55.5 % (40-80); PLATELET COUNT 413 10x3/uL (130-400); RBC 3.43 10x6/uL (4.00-5.40); RDW 18.5 % (11.5-14.5); WBC 10.3 10x3/uL (4.8-10.8)
[2018-01-20 05:12] LABS: ALBUMIN 2.1 g/dL (3.4-5.0); ALKALINE PHOSPHATASE 125 U/L (46-116); ALT (SGPT) 9 U/L (10-68); BILIRUBIN - TOTAL 0.15 mg/dL (0.2-1.3); CALCIUM 8.2 mg/dL (8.5-10.1); CARBON DIOXIDE 35.9 mmol/L (21.0-32.0); CHLORIDE - SERUM 100 mmol/L (98-107); CREATININE - SERUM 0.6 mg/dL (0.6-1.3); GLUCOSE 135 mg/dL (74-106); PROTEIN - SERUM 5.9 g/dL (6.4-8.2); SODIUM 140 mmol/L (136-145); eGFR NON AFRICAN AMERICAN > 90 mL/min (90-120)
[2018-01-20 05:33] LABS: CALC OSMOLALITY 277 mosm/kg (275-300); POTASSIUM - SERUM 2.6 mmol/L (3.5-5.1); UREA NITROGEN 4 mg/dL (7-18)
[2018-01-20 07:44] VITALS: BP 144/78
[2018-01-20 11:59] VITALS: BP 158/76
[2018-01-20 15:49] VITALS: BP 142/80
[2018-01-20 19:53] VITALS: BP 142/62
[2018-01-20 23:54] VITALS: BP 151/84
[2018-01-21 04:00] VITALS: BP 168/89
[2018-01-21 07:39] VITALS: BP 163/76
[2018-01-21] MEDS ORDERED: MIRALAX17 GM PO (10:42)
[2018-01-21 12:15] VITALS: BP 178/83
== END 2018-01-21 12:38 | disposition home or self-care (01) | DRG 392 ==
LOC: D.ER 02:19 → D.EDHOLD 08:12 → D.MS 14:41
PROVIDERS: Family Medicine
DX: K59.00 Constipation, unspecified (principal); K86.1 Other chronic pancreatitis; F17.203 Nicotine dependence unspecified, with withdrawal; N39.0 Urinary tract infection, site not specified; I10 Essential (primary) hypertension; J84.112 Idiopathic pulmonary fibrosis; Z93.3 Colostomy status; E86.0 Dehydration; K86.89 Other specified diseases of pancreas; D64.9 Anemia, unspecified; E11.40 Type 2 diabetes mellitus with diabetic neuropathy, unspecified

== ENCOUNTER 2018-03-18 21:40 | Inpatient (IN) | payer MEDICARE ==
[~2018-03-18] VITALS: Ht 170.2 cm; Wt 77.1 kg
--- NOTE | ~2018-03-18 | MORECARE ---
CASE MANAGEMENT DISCHARGE SUMMARY PATIENT: NINA ODELL UNIT: [id number] ADM DATE: 03/18/18 AGE: 47 : 66 SEX: F ROOM/BED: D.2107 AUTHOR: CHRISTIANO,DOC PHYSICIAN: REFERRING PHYSICIAN: ANGEL CHEN MD DATE OF SERVICE: 05/17/18 Discharge Plan Patient Name: NINA ODELL Facility: [facility]:[place] : 1970 Planned Disposition: Mcfp Facility Anticipated Discharge Date: 03/23/18 Discharge Date: Expected LOS: 5 Initial Reviewer: [email or web address] Initial Review Date: 03/21/2018 Generated: 05/17/18 6:10 pm Comments DCP- Discharge Planning Updated by [id number]: Lizandro Petit on 05/14/18 3:[address] Patient Name: NINA ODELL Encounter No: [id number] : 1970 Primary Insurance: MEDICARE A & B Anticipated DC Date: 03-23-2018 Planned Disposition: Mcfp Facility External Planned Provider: TO BE DETERMINED DCP follow-up note: CM SPOKE TO PT IN ROOM REGARDING DISCHARGE PLANNING AND NEEDS. PT NOW BELIVES SHE NEED REHAB AND WILL CONSIDER GOING TO LONG TERM FACILITY AT DISCHARGE FOR REHAB. CM DISCUSSED AVAILABILITY OF LONG TERM REHABS, LOCATIONS AND PROVIDERS. CHOICE LETTER PROVIDED. PT REPORTS SHE WANTS TO CONSULT WITH FAMILY PRIOR TO MAKING LONG TERM FACILITY CHOICE. CM WAITING ON PT TO CONSULT WITH HER FAMILY AND PROVIDE LONG TERM FACILITY CHOICE FOR REHAB REFERRAL. TIAGO Joy DCP- Discharge Planning Updated by [id number]: Sobia Jensen on 05/14/18 1:[address] CM spoke with Kay at [facility] regarding status of rehab screening. Kay informed CM that patient is not a good candidate for IRF and if rehab is needed CM should pursue SNF. CM informed Kaleb Petit CM. DCP- Discharge Planning Updated by [id number]: Bev Allan on 03/21/18 7:[address] Patient Name: NINA ODELL Admission Status: ER Accout number: [id number] Admission Date: 03-18-2018 : 1970 Admission Diagnosis:UNSPECIFIED ABDOMINAL PAIN Attending: ANGEL CHEN Current LOS: 3 Anticipated DC Date: 03-23-2018 Planned Disposition: Home Primary Insurance: MEDICARE A & B Discharge Planning Comments: CM MET WITH PATIENT REGARDING D/C NEEDS AND PLANS. PATIENT STATED SHE LIVES WITH HER DAUGHTER (FARHEEN) AND SHE WILL DRIVE HER HOME AT DISCHARGE. PATIENT STATED THERE ARE NO STEPS OR STAIRS AT HER HOME. PATIENT STATED SHE IS INDEPENDENT WITH HER CARE AND HAS A SHOWER CHAIR, BS COMMODE, WALKER, CPAP, NEBULIZER, PORTABLE O2, AND OXYGEN (3L) AT HOME. PATIENTS PCP IS DR. IRVIN AND PHARMACY IS [facility] [address] PATIENT REFUSED HOME HEALTH DUE TO HER INSURANCE CUTTING HER OSTOMY SUPPLIES OFF. CM ASKED IF SHE COULD GET HER OSTOMY SUPPLIES APPROVED AFTER DISCHARGED FROM HOME HEALTH SHE STATED NO AND I DO NOT WANT HOME HEALTH. PATIENT SIGNED THE IMM FORM. CM WILL CONTINUE TO FOLLOW PATIENT WITH D/C NEEDS AND PLANS. PCP DR. IRVIN [facility] [address] (DAUGHTER) [phone] Heel Coverer Machine Operator: Bev Allan [facility] - Discharge Planning Initial Assessment Updated by [id number]: Bev Allan on 03/21/18 7:47 am * Is the patient Alert and Oriented? Yes * How many steps to enter\exit or inside your home? * PCP DR. IRVIN * [facility] [address] * Preadmission Environment Home with Family * ADLs Independent * Equipment Bedside Commode CPAP Nebulizer Ostomy Supplies Oxygen Shower Chair Walker * Other Equipment PORTABLE O2 * List name and contact numbers for known caregivers / representatives who currently or will assist patient after discharge: FARHEEN TURNER (DAUGHTER) [phone] * Verbal permission to speak to the caregivers and representatives has been obtained from the patient. Yes * Community resources currently utilized None * Additional services required to return to the preadmission environment? Yes * Can the patient safely return to the preadmission environment? Yes * Has this patient been hospitalized within the prior 30 days at any hospital? No Coverage Notice Reviewer: [id number] - Bev Allan Notice Issued Date-Time: 03/21/2018 7:34 Notice Type: IM Discharge Notice Notice Delivered To: Patient Relationship to Patient: Clerk To Justice Name: Delivery Method: HAND - Hand Delivered Jennifer Days: Prior Verbal Notification: Recipient Understood Notice: Yes Recipient Signature: Yes Med Rec Note Co-signed by Attending: Coverage Notice Comment: Reviewer: CEDRIC Petit Notice Issued Date-Time: 05/14/2018 16:35 Notice Type: IM Discharge Notice Notice Delivered To: Patient Relationship to Patient: Clerk To Justice Name: Delivery Method: HAND - Hand Delivered Jennifer Days: Prior Verbal Notification: Recipient Understood Notice: Yes Recipient Signature: Yes Med Rec Note Co-signed by Attending: Coverage Notice Comment: Reviewer: CEDRIC Petit Notice Issued Date-Time: 05/17/2018 15:00 Notice Type: IM Discharge Notice Notice Delivered To: Patient Relationship to Patient: Clerk To Justice Name: Delivery Method: HAND - Hand Delivered Jennifer Days: Prior Verbal Notification: Recipient Understood Notice: Yes Recipient Signature: Med Rec Note Co-signed by Attending: Coverage Notice Comment: REFUSED SIGNATURE REPORTING SHE DID THIS ON THURSDAY OF LAST WEEK. Last DP export: 05/14/18 4:02 p Patient Name: NINA ODELL Page [phone] at 1710 All edits/amendments must be made on the electronic document DICTATION DATE: 05/17/181709 MIDDLE SCHOOL VOLLEYBALL COACH: WIL 05/17/181709 RPT#: [id number] DC DATE: STATUS: ADM IN [facility] [address] [place] [address] END OF REPORT
--- NOTE | ~2018-03-18 | MORECARE ---
CASE MANAGEMENT DISCHARGE SUMMARY PATIENT: NINA ODELL UNIT: [id number] ADM DATE: 03/18/18 AGE: 47 : 66 SEX: F ROOM/BED: D.2107 AUTHOR: CHRISTIANO,DOC PHYSICIAN: REFERRING PHYSICIAN: ANGEL CHEN MD DATE OF SERVICE: 05/14/18 Discharge Plan Patient Name: NINA ODELL Facility: [facility]:[place] : 1970 Planned Disposition: Chcf Facility Anticipated Discharge Date: 03/23/18 Discharge Date: Expected LOS: 5 Initial Reviewer: [id number] Initial Review Date: 03/21/2018 Generated: 05/14/18 6:02 pm Comments DCP- Discharge Planning Updated by [id number]: Lizandro Petit on 05/14/18 3:[address] Patient Name: NINA ODELL Encounter No: [id number] : 1970 Primary Insurance: MEDICARE A & B Anticipated DC Date: 03-23-2018 Planned Disposition: [facility]cf Facility External Planned Provider: TO BE DETERMINED DCP follow-up note: CM SPOKE TO PT IN ROOM REGARDING DISCHARGE PLANNING AND NEEDS. PT NOW BELIVES SHE NEED REHAB AND WILL CONSIDER GOING TO PENITENTIARY FACILITY AT DISCHARGE FOR REHAB. CM DISCUSSED AVAILABILITY OF PENITENTIARY REHABS, LOCATIONS AND PROVIDERS. CHOICE LETTER PROVIDED. PT REPORTS SHE WANTS TO CONSULT WITH FAMILY PRIOR TO MAKING PENITENTIARY FACILITY CHOICE. CM WAITING ON PT TO CONSULT WITH HER FAMILY AND PROVIDE PENITENTIARY FACILITY CHOICE FOR REHAB REFERRAL. TIAGO Joy DCP- Discharge Planning Updated by [id number]: Sobia Jensen on 05/14/18 1:[address] CM spoke with Kay at [facility] regarding status of rehab screening. Kay informed CM that patient is not a good candidate for IRF and if rehab is needed CM should pursue SNF. CM informed Kaleb Petit CM. DCP- Discharge Planning Updated by [id number]: Bev Allan on 03/21/18 7:[address] Patient Name: NINA ODELL Admission Status: ER Accout number: [id number] Admission Date: 03-18-2018 : 1970 Admission Diagnosis:UNSPECIFIED ABDOMINAL PAIN Attending: ANGEL CHEN Current LOS: 3 Anticipated DC Date: 03-23-2018 Planned Disposition: Home Primary Insurance: MEDICARE A & B Discharge Planning Comments: CM MET WITH PATIENT REGARDING D/C NEEDS AND PLANS. PATIENT STATED SHE LIVES WITH HER DAUGHTER (FARHEEN) AND SHE WILL DRIVE HER HOME AT DISCHARGE. PATIENT STATED THERE ARE NO STEPS OR STAIRS AT HER HOME. PATIENT STATED SHE IS INDEPENDENT WITH HER CARE AND HAS A SHOWER CHAIR, BS COMMODE, WALKER, CPAP, NEBULIZER, PORTABLE O2, AND OXYGEN (3L) AT HOME. PATIENTS PCP IS DR. IRVIN AND [facility] [address] PATIENT REFUSED HOME HEALTH DUE TO HER INSURANCE CUTTING HER OSTOMY SUPPLIES OFF. CM ASKED IF SHE COULD GET HER OSTOMY SUPPLIES APPROVED AFTER DISCHARGED FROM HOME HEALTH SHE STATED NO AND I DO NOT WANT HOME HEALTH. PATIENT SIGNED THE IMM FORM. CM WILL CONTINUE TO FOLLOW PATIENT WITH D/C NEEDS AND PLANS. PCP DR. IRVIN [facility] [address] (DAUGHTER) [phone] Collar Setter: Bev Allan [facility] - Discharge Planning Initial Assessment Updated by [id number]: Bev Allan on 03/21/18 7:47 am * Is the patient Alert and Oriented? Yes * How many steps to enter\exit or inside your home? * PCP DR. IRVIN * [facility] [address] * Preadmission Environment Home with Family * ADLs Independent * Equipment Bedside Commode CPAP Nebulizer Ostomy Supplies Oxygen Shower Chair Walker * Other Equipment PORTABLE O2 * List name and contact numbers for known caregivers / representatives who currently or will assist patient after discharge: FARHEEN TURNER (DAUGHTER) [phone] * Verbal permission to speak to the caregivers and representatives has been obtained from the patient. Yes * Community resources currently utilized None * Additional services required to return to the preadmission environment? Yes * Can the patient safely return to the preadmission environment? Yes * Has this patient been hospitalized within the prior 30 days at any hospital? No Coverage Notice Reviewer: [id number] - Bev Allan Notice Issued Date-Time: 03/21/2018 7:34 Notice Type: IM Discharge Notice Notice Delivered To: Patient Relationship to Patient: Clothes Presser Name: Delivery Method: HAND - Hand Delivered Jennifer Days: Prior Verbal Notification: Recipient Understood Notice: Yes Recipient Signature: Yes Med Rec Note Co-signed by Attending: Coverage Notice Comment: Reviewer: [id number] - Lizandro Petit Notice Issued Date-Time: 05/14/2018 16:35 Notice Type: IM Discharge Notice Notice Delivered To: Patient Relationship to Patient: Clothes Presser Name: Delivery Method: HAND - Hand Delivered Jennifer Days: Prior Verbal Notification: Recipient Understood Notice: Yes Recipient Signature: Yes Med Rec Note Co-signed by Attending: Coverage Notice Comment: Last DP export: 05/14/18 3:52 p Patient Name: NINA ODELL Page [phone] at 1702 All edits/amendments must be made on the electronic document DICTATION DATE: 05/14/181700 GRINDER SET UP OPERATOR THREAD TOOL: WIL 05/14/181700 RPT#: [id number] DC DATE: STATUS: ADM IN [facility] [address] [place] [address] END OF REPORT
--- NOTE | ~2018-03-18 | OP ---
PATIENT NAME: NINA ODELL MEDICAL RECORD: [id number] :[birth year] LOCATION:D.MS Frank2214 ADMISSION DATE:03/18/18 SURGEON: STEFANO KERR MD DATE OF OPERATION: 04/26/2018 PREOPERATIVE DIAGNOSES: 1. Poor IV access. 2. Chronic leukocytosis. 3. COPD. 4. GERD. 5. Hypertension. POSTOPERATIVE DIAGNOSES: 1. Poor IV access. 2. Chronic leukocytosis. 3. COPD. 4. GERD. 5. Hypertension. PROCEDURES: 1. Left subclavian vein PowerPort placement. 2. Fluoroscopic interpretation. SURGEON: Stefano Kerr MD REPORT OF PROCEDURE: The patient's left chest was prepped and draped in sterile fashion. A needle was used to cannulate the left subclavian vein and a guidewire was advanced with ease. Fluoro was used to note that the wire was in good position in the venous system. A skin incision was made on the left superolateral chest, incorporating an area of scar. The scar was removed. We then dissected through the subcutaneous tissue using electrocautery down to the pectoral fascia. A subcutaneous pouch was made overlying the pectoral fascia. We then tunneled the catheter between this and the wire exit site. The port was sutured to the pectoral fascia using interrupted 2-0 Prolenes times 2. The catheter was cut with a beveled tip at 26 cm. The dilator trocar device was placed over the wire and the wire and dilator were removed. The catheter tip was advanced through the trocar and the trocar was then removed. At this point, the catheter was noted to be resting in good position in the right atrial-superior vena caval junction. The catheter aspirated nonpulsatile dark blood and flushed easily with heparinized saline. The subcutaneous tissues were then irrigated out and reapproximated with interrupted 3-0 Vicryl and the skin was closed with running subcutaneous 5-0 Monocryl. We then accessed the port and flushed it one last time before applying a dressing. COMPLICATIONS: None. CONDITION: Stable. ANESTHESIA: General endotracheal. BLOOD LOSS: Minimal. TRANSINT:[id number] Voice Confirmation ID: [id number] DOCUMENT ID: [id number] OPERATIVE REPORT [id number] CASSNINA STEFANO KERR MD at 1441 CC: [id number] DICTATION DATE: 04/26/18 1410 MILITARY SOURCE OPERATIONS OFFICER: 04/26/18 1512 ADM IN [place] [id number] [place] [id number]
--- NOTE | ~2018-03-18 | MORECARE ---
CASE MANAGEMENT DISCHARGE SUMMARY PATIENT: NINA ODELL UNIT: [id number] ADM DATE: 03/18/18 AGE: 47 : 66 SEX: F ROOM/BED: D.2107 AUTHOR: CHRISTIANO,DOC PHYSICIAN: REFERRING PHYSICIAN: ANGEL CHEN MD DATE OF SERVICE: 05/18/18 Discharge Plan Patient Name: NINA ODELL Facility: [facility]:[place] : 1970 Planned Disposition: Shelter Facility Anticipated Discharge Date: 05/19/18 Discharge Date: Expected LOS: 62 Initial Reviewer: [id number] Initial Review Date: 03/21/2018 Generated: 05/18/18 11:24 am Comments DCP- Discharge Planning Updated by [email or web address]: Lizandro Petit on 05/18/18 9:[address] Patient Name: NINA ODELL Encounter No: [id number] : 1970 Primary Insurance: MEDICARE A & B Anticipated DC Date: 05-19-2018 Planned Disposition: Shelter Facility External Planned Provider: [facility], MEDICARE REHAB BED DCP follow-up note: CM SPOKE TO PT IN ROOM, NOTIFIED OF INPATIENT REHAB DECLINATION. PT UPSET. CM DISCUSSED AVAILABILTY OF INPATIENT REHAB AT [facility]. PT DOES NOT WANT REFERRED THERE. PT ASKED FOR REFERRAL TO [facility] FOR REHAB. CHOICE LETTER COMPLETED. CM CALLED [facility] AT [phone], SPOKE TO ABA AND PROVIDED REFERRAL INFORMATION; FAXED REFERRAL TO [facility] AT [phone]. CM WAITING ADMISSION DETERMINATION FROM [facility]. Lizandro Petit CASE WIL DCP- Discharge Planning Updated by [id number]: Lizandro Petit on 05/17/18 4:[address] Patient Name: NINA ODELL Encounter No: [id number] : 1970 Primary Insurance: MEDICARE A & B Anticipated DC Date: 03-23-2018 Planned Disposition: Shelter Facility External Planned Provider: TO BE DECIDED BY PATIENT DCP follow-up note: CM SPOKE TO PT IN ROOM REGARDING DISCHARGE PLANNING AND NEEDS. PT STILL CONSIDERING GOING TO LONGTERM FACILITY AT DISCHARGE FOR REHAB. CM DISCUSSED AVAILABILITY OF LONGTERM REHABS, LOCATIONS AND PROVIDERS. CHOICE LETTER PROVIDED. PT CONSIDERING [facility] AND REPORTS SHE WANTS TO AGAIN CONSULT WITH FAMILY PRIOR TO MAKING LONGTERM FACILITY CHOICE. PT ASKED TO BE CONSIDERED FOR INPATIENT REHAB "HERE" IN THE "MEANTIME". CM CALLED AND SPOKE TO BHARATHI, DIRECTOR OF [facility] INPATIENT REHAB, THEY DECLINED PT DUE TO LACK OF PARTICIPATION IN THERAPY SERVICES. IMPORTANT MESSAGE FROM MEDICARE PROVIDED AND DISCUSSED. PT REFUSED TO SIGN THE MEDICARE MESSAGE REPORTING THIS DONE ON LAST THURSDAY. CM WAITING ON PT TO CONSULT WITH HER FAMILY AND PROVIDE LONGTERM FACILITY CHOICE FOR REHAB REFERRAL. Lizandro Petit, CASE MANAGEMENT DCP- Discharge Planning Updated by [id number]: Lizandro Petit on 05/14/18 3:[address] Patient Name: NINA ODELL Encounter No: [id number] : 1970 Primary Insurance: MEDICARE A & B Anticipated DC Date: 03-23-2018 Planned Disposition: Shelter Facility External Planned Provider: TO BE DETERMINED DCP follow-up note: CM SPOKE TO PT IN ROOM REGARDING DISCHARGE PLANNING AND NEEDS. PT NOW BELIVES SHE NEED REHAB AND WILL CONSIDER GOING TO LONGTERM FACILITY AT DISCHARGE FOR REHAB. CM DISCUSSED AVAILABILITY OF LONGTERM REHABS, LOCATIONS AND PROVIDERS. CHOICE LETTER PROVIDED. PT REPORTS SHE WANTS TO CONSULT WITH FAMILY PRIOR TO MAKING LONGTERM FACILITY CHOICE. CM WAITING ON PT TO CONSULT WITH HER FAMILY AND PROVIDE LONGTERM FACILITY CHOICE FOR REHAB REFERRAL. Lizandro Petit CASE MANAGEMENT DCP- Discharge Planning Updated by [id number]: Sobia Jensen on 05/14/18 1:[address] CM spoke with Kay at [facility] regarding status of rehab screening. Kay informed CM that patient is not a good candidate for IRF and if rehab is needed CM should pursue SNF. CM informed Kaleb Petit CM. DCP- Discharge Planning Updated by [id number]: Bev Allan on 03/21/18 7:[address] Patient Name: NINA ODELL Admission Status: ER Accout number: [id number] Admission Date: 03-18-2018 : 1970 Admission Diagnosis:UNSPECIFIED ABDOMINAL PAIN Attending: ANGEL CHEN Current LOS: 3 Anticipated DC Date: 03-23-2018 Planned Disposition: Home Primary Insurance: MEDICARE A & B Discharge Planning Comments: CM MET WITH PATIENT REGARDING D/C NEEDS AND PLANS. PATIENT STATED SHE LIVES WITH HER DAUGHTER (FARHEEN) AND SHE WILL DRIVE HER HOME AT DISCHARGE. PATIENT STATED THERE ARE NO STEPS OR STAIRS AT HER HOME. PATIENT STATED SHE IS INDEPENDENT WITH HER CARE AND HAS A SHOWER CHAIR, BS COMMODE, WALKER, CPAP, NEBULIZER, PORTABLE O2, AND OXYGEN (3L) AT HOME. PATIENTS PCP IS DR. IRVIN AND [facility] [address] PATIENT REFUSED HOME HEALTH DUE TO HER INSURANCE CUTTING HER OSTOMY SUPPLIES OFF. CM ASKED IF SHE COULD GET HER OSTOMY SUPPLIES APPROVED AFTER DISCHARGED FROM HOME HEALTH SHE STATED NO AND I DO NOT WANT HOME HEALTH. PATIENT SIGNED THE IMM FORM. CM WILL CONTINUE TO FOLLOW PATIENT WITH D/C NEEDS AND PLANS. PCP DR. IRVIN [facility] [address] FARHEEN (DAUGHTER) [phone] Docketing Specialist: Bev Allan [facility] - Discharge Planning Initial Assessment Updated by [id number]: Bev Allan on 03/21/18 7:47 am * Is the patient Alert and Oriented? Yes * How many steps to enter\\exit or inside your home? * PCP DR. IRVIN * [facility] [address] * Preadmission Environment Home with Family * ADLs Independent * Equipment Bedside Commode CPAP Nebulizer Ostomy Supplies Oxygen Shower Chair Walker * Other Equipment PORTABLE O2 * List name and contact numbers for known caregivers / representatives who currently or will assist patient after discharge: FARHEEN TURNER (DAUGHTER) [phone] * Verbal permission to speak to the caregivers and representatives has been obtained from the patient. Yes * Community resources currently utilized None * Additional services required to return to the preadmission environment? Yes * Can the patient safely return to the preadmission environment? Yes * Has this patient been hospitalized within the prior 30 days at any hospital? No Coverage Notice Reviewer: [id number] - Bev Allan Notice Issued Date-Time: 03/21/2018 7:34 Notice Type: IM Discharge Notice Notice Delivered To: Patient Relationship to Patient: Environmental Services Lead Name: Delivery Method: HAND - Hand Delivered Jennifer Days: Prior Verbal Notification: Recipient Understood Notice: Yes Recipient Signature: Yes Med Rec Note Co-signed by Attending: Coverage Notice Comment: Reviewer: [id number] Petit Notice Issued Date-Time: 05/14/2018 16:35 Notice Type: IM Discharge Notice Notice Delivered To: Patient Relationship to Patient: Environmental Services Lead Name: Delivery Method: HAND - Hand Delivered Jennifer Days: Prior Verbal Notification: Recipient Understood Notice: Yes Recipient Signature: Yes Med Rec Note Co-signed by Attending: Coverage Notice Comment: Reviewer: CEDRIC Petit Notice Issued Date-Time: 05/17/2018 15:00 Notice Type: IM Discharge Notice Notice Delivered To: Patient Relationship to Patient: Environmental Services Lead Name: Delivery Method: HAND - Hand Delivered Jennifer Days: Prior Verbal Notification: Recipient Understood Notice: Yes Recipient Signature: Med Rec Note Co-signed by Attending: Coverage Notice Comment: REFUSED SIGNATURE REPORTING SHE DID THIS ON THURSDAY OF LAST WEEK. Reviewer: CEDRIC Petit Notice Issued Date-Time: 05/18/2018 9:20 Notice Type: Patient Choice Letter Notice Delivered To: Patient Relationship to Patient: Environmental Services Lead Name: Delivery Method: HAND - Hand Delivered Jennifer Days: Prior Verbal Notification: Recipient Understood Notice: Yes Recipient Signature: Med Rec Note Co-signed by Attending: Coverage Notice Comment: CHOICE FOR [facility], WITNESSED BY ZAINA Mccoy DP export: 05/18/18 8:34 Patient Name: NINA ODELL Page [id number] at 1024 All edits/amendments must be made on the electronic document DICTATION DATE: 05/18/18 1024 MANAGER PHOTO: WIL 05/18/18 1024 RPT#: [id number] [place] DATE: STATUS: ADM IN [facility] [address] [place] [address] END OF REPORT
--- NOTE | ~2018-03-18 | MORECARE ---
CASE MANAGEMENT DISCHARGE SUMMARY PATIENT: NINA ODELL UNIT: [id number] ADM DATE: 03/18/18 AGE: 47 : 66 SEX: F ROOM/BED: D.2107 AUTHOR: CHRISTIANO,DOC PHYSICIAN: REFERRING PHYSICIAN: ANGEL CHEN MD DATE OF SERVICE: 05/19/18 Discharge Plan Patient Name: NINA ODELL Facility: [facility]:[place] : 1970 Planned Disposition: Nursing Home Facility Anticipated Discharge Date: 05/19/18 Discharge Date: Expected LOS: 62 Initial Reviewer: [id number] Initial Review Date: 03/21/2018 Generated: 05/19/18 12:26 pm Comments DCP- Discharge Planning Updated by [id number]: Lizandro Petit on 05/18/18 1:[address] Patient Name: NINA ODELL Encounter No: [id number] : 1970 Primary Insurance: MEDICARE A & B Anticipated DC Date: 05-19-2018 Planned Disposition: Nursing Home Facility External Planned Provider: [facility], MEDICARE REHAB BED DCP follow-up note: CM RECEIVED CALL FROM ABA OF [facility], THEY WILL ACCEPT PT FOR DISCHARGE, NEED FAMILY TO ASSIST WITH SIGNING IN PT FOR REHAB. CM SPOKE TO PT IN ROOM, PT REPORTS HER DAUGHTER FARHEEN WILL ASSIST IN COMPLETING PAPERWORK FOR ADMISSION TO [facility]. PT DOES NOT WANT CM CALLING HER DAUGHTER AND WILL CALL FARHEEN HERSELF AND HAVE HER CALL [facility] IN THE MORNING TO COMPLETE ADMISSION PAPERWORK. CM PROVIDED CONTACT NAME AND PHONE NUMBER TO PT OF ABA AT [facility], . CM CALLED AND NOTIFIED ABA OF [facility]. CM WAITING PT TO HAVE FAMILY COMPLETE ADMISSION PAPERWORK WHICH SHOULD BE DONE MORNING OF 05-19-18. FOR DISCHARGE, CM TO FAX DISCHARGE INFORMATION TO [facility] AT [phone]. NURSE REPORT TO BE CALLED TO [facility] AT [phone]. [facility] TO ARRANGE VAN TRANSPORT. TIAGO Joy DCP- Discharge Planning Updated by [id number]: Lizandro Petit on 05/18/18 9:[address] Patient Name: NINA ODELL Encounter No: [id number] : 1970 Primary Insurance: MEDICARE A & B Anticipated DC Date: 05-19-2018 Planned Disposition: Nursing Home Facility External Planned Provider: [facility], MEDICARE REHAB BED DCP follow-up note: CM SPOKE TO PT IN ROOM, NOTIFIED OF INPATIENT REHAB DECLINATION. PT UPSET. CM DISCUSSED AVAILABILTY OF INPATIENT REHAB AT [facility]. PT DOES NOT WANT REFERRED THERE. PT ASKED FOR REFERRAL TO [facility] FOR REHAB. CHOICE LETTER COMPLETED. CM CALLED [facility] AT [phone], SPOKE TO ABA AND PROVIDED REFERRAL INFORMATION; FAXED REFERRAL TO [facility] AT [phone]. CM WAITING ADMISSION DETERMINATION FROM [facility]. Lizandro Petit CASE MANAGEMENT DCP- Discharge Planning Updated by [id number]: Lizandro Petit on 05/17/18 4:[address] Patient Name: NINA ODELL Encounter No: [id number] : 1970 Primary Insurance: MEDICARE A & B Anticipated DC Date: 03-23-2018 Planned Disposition: Nursing Home Facility External Planned Provider: TO BE DECIDED BY PATIENT DCP follow-up note: CM SPOKE TO PT IN ROOM REGARDING DISCHARGE PLANNING AND NEEDS. PT STILL CONSIDERING GOING TO [facility] AT DISCHARGE FOR REHAB. CM DISCUSSED AVAILABILITY OF [facility] REHABS, LOCATIONS AND PROVIDERS. CHOICE LETTER PROVIDED. PT CONSIDERING [facility] AND REPORTS SHE WANTS TO AGAIN CONSULT WITH FAMILY PRIOR TO MAKING [facility] FACILITY CHOICE. PT ASKED TO BE CONSIDERED FOR INPATIENT REHAB "HERE" IN THE "MEANTIME". CM CALLED AND SPOKE TO BHARATHI, DIRECTOR OF [facility] INPATIENT [facility], THEY DECLINED PT DUE TO LACK OF PARTICIPATION IN THERAPY SERVICES. IMPORTANT MESSAGE FROM MEDICARE PROVIDED AND DISCUSSED. PT REFUSED TO SIGN THE MEDICARE MESSAGE REPORTING THIS DONE ON LAST THURSDAY. CM WAITING ON PT TO CONSULT WITH HER FAMILY AND PROVIDE [facility]ILITY CHOICE FOR REHAB REFERRAL. TIAGO Joy MANAGEMENT DCP- Discharge Planning Updated by [id number]: Lizandro Petit on 05/14/18 3:[address] Patient Name: NINA ODELL Encounter No: [id number] : 1970 Primary Insurance: MEDICARE A & B Anticipated DC Date: 03-23-2018 Planned Disposition: Nursing Home Facility External Planned Provider: TO BE DETERMINED DCP follow-up note: CM SPOKE TO PT IN ROOM REGARDING DISCHARGE PLANNING AND NEEDS. PT NOW BELIVES SHE NEED REHAB AND WILL CONSIDER GOING TO [facility] AT DISCHARGE FOR REHAB. CM DISCUSSED AVAILABILITY OF [facility] REHABS, LOCATIONS AND PROVIDERS. CHOICE LETTER PROVIDED. PT REPORTS SHE WANTS TO CONSULT WITH FAMILY PRIOR TO MAKING [facility] FACILITY CHOICE. CM WAITING ON PT TO CONSULT WITH HER FAMILY AND PROVIDE [facility] FACILITY CHOICE FOR REHAB REFERRAL. Lizandro Petit, CASE MANAGEMENT DCP- Discharge Planning Updated by [id number]: Sobia Jensen on 05/14/18 1:[address] CM spoke with Kay at [facility] regarding status of rehab screening. Kay informed CM that patient is not a good candidate for IRF and if rehab is needed CM should pursue SNF. CM informed Kaleb Petit CM. DCP- Discharge Planning Updated by [email or web address]: Bev Allan on 03/21/18 7:[address] Patient Name: NINA ODELL Admission Status: ER Accout number: [id number] Admission Date: 03-18-2018 : 1970 Admission Diagnosis:UNSPECIFIED ABDOMINAL PAIN Attending: ANGEL CHEN Current LOS: 3 Anticipated DC Date: 03-23-2018 Planned Disposition: Home Primary Insurance: MEDICARE A & B Discharge Planning Comments: CM MET WITH PATIENT REGARDING D/C NEEDS AND PLANS. PATIENT STATED SHE LIVES WITH HER DAUGHTER (FARHEEN) AND SHE WILL DRIVE HER HOME AT DISCHARGE. PATIENT STATED THERE ARE NO STEPS OR STAIRS AT HER HOME. PATIENT STATED SHE IS INDEPENDENT WITH HER CARE AND HAS A SHOWER CHAIR, BS COMMODE, WALKER, CPAP, NEBULIZER, PORTABLE O2, AND OXYGEN (3L) AT HOME. PATIENTS PCP IS DR. IRVIN AND [facility] [address] PATIENT REFUSED HOME HEALTH DUE TO HER INSURANCE CUTTING HER OSTOMY SUPPLIES OFF. CM ASKED IF SHE COULD GET HER OSTOMY SUPPLIES APPROVED AFTER DISCHARGED FROM HOME HEALTH SHE STATED NO AND I DO NOT WANT HOME HEALTH. PATIENT SIGNED THE IMM FORM. CM WILL CONTINUE TO FOLLOW PATIENT WITH D/C NEEDS AND PLANS. PCP DR. IRVIN PHARMACY IS [facility] [address] ZHONG (DAUGHTER) [phone] Melting Supervisor: Bev Allan DCPIA - Discharge Planning Initial Assessment Updated by [id number]: Bev Allan on 03/21/18 7:47 am * Is the patient Alert and Oriented? Yes * How many steps to enter\\exit or inside your home? * PCP DR. IRVIN * Pharmacy [facility] [address] * Preadmission Environment Home with Family * ADLs Independent * Equipment Bedside Commode CPAP Nebulizer Ostomy Supplies Oxygen Shower Chair Walker * Other Equipment PORTABLE O2 * List name and contact numbers for known caregivers / representatives who currently or will assist patient after discharge: FARHEEN TURNER (DAUGHTER) [phone] * Verbal permission to speak to the caregivers and representatives has been obtained from the patient. Yes * Community resources currently utilized None * Additional services required to return to the preadmission environment? Yes * Can the patient safely return to the preadmission environment? Yes * Has this patient been hospitalized within the prior 30 days at any hospital? No External Providers External Provider: [facility] Next Contact Date: 05/19/2018 Service Request Date: Service Type: Resolution: Reviewer: Comments: Coverage Notice Reviewer: [id number] - Bev Allan Notice Issued Date-Time: 03/21/2018 7:34 Notice Type: IM Discharge Notice Notice Delivered To: Patient Relationship to Patient: Closing Coordinator Name: Delivery Method: HAND - Hand Delivered Jennifer Days: Prior Verbal Notification: Recipient Understood Notice: Yes Recipient Signature: Yes Med Rec Note Co-signed by Attending: Coverage Notice Comment: Reviewer: [id number] Petit Notice Issued Date-Time: 05/14/2018 16:35 Notice Type: IM Discharge Notice Notice Delivered To: Patient Relationship to Patient: Closing Coordinator Name: Delivery Method: HAND - Hand Delivered Jennifer Days: Prior Verbal Notification: Recipient Understood Notice: Yes Recipient Signature: Yes Med Rec Note Co-signed by Attending: Coverage Notice Comment: Reviewer: [id number] Petit Notice Issued Date-Time: 05/17/2018 15:00 Notice Type: IM Discharge Notice Notice Delivered To: Patient Relationship to Patient: Closing Coordinator Name: Delivery Method: HAND - Hand Delivered Jennifer Days: Prior Verbal Notification: Recipient Understood Notice: Yes Recipient Signature: Med Rec Note Co-signed by Attending: Coverage Notice Comment: REFUSED SIGNATURE REPORTING SHE DID THIS ON THURSDAY OF LAST WEEK. Reviewer: [id number] Wyatt Petit Notice Issued Date-Time: 05/18/2018 9:20 Notice Type: Patient Choice Letter Notice Delivered To: Patient Relationship to Patient: Closing Coordinator Name: Delivery Method: HAND - Hand Delivered Jennifer Days: Prior Verbal Notification: Recipient Understood Notice: Yes Recipient Signature: Med Rec Note Co-signed by Attending: Coverage Notice Comment: CHOICE FOR [facility] VERB[facility], WITNESSED BY ZAINA ESCOBEDO export: 05/18/18 1:58 Patient Name: NINA ODELL Page [id number] at 1126 All edits/amendments must be made on the electronic document DICTATION DATE: 05/19/181124 SUPPLY CHAIN ASSOCIATE: WIL 05/19/181124 RPT#: [id number] DC DATE: STATUS: ADM IN [facility] [address] [place] [address] END OF REPORT
--- NOTE | ~2018-03-18 | MORECARE ---
CASE MANAGEMENT DISCHARGE SUMMARY PATIENT: NINA ODELL UNIT: [id number] ADM DATE: 03/18/18 AGE: 47 : 66 SEX: F ROOM/BED: D.2107 AUTHOR: CHRISTIANO,DOC PHYSICIAN: REFERRING PHYSICIAN: ANGEL CEHN MD DATE OF SERVICE: 05/18/18 Discharge Plan Patient Name: NINA ODELL Facility: [facility]:[place] : 1970 Planned Disposition: Nursing Home Facility Anticipated Discharge Date: 05/19/18 Discharge Date: Expected LOS: 62 Initial Reviewer: [id number] Initial Review Date: 03/21/2018 Generated: 05/18/18 10:34 am Comments DCP- Discharge Planning Updated by [id number]: Lizandro Petit on 05/17/18 4:[address] Patient Name: NINA ODELL Encounter No: [id number] : 1970 Primary Insurance: MEDICARE A & B Anticipated DC Date: 03-23-2018 Planned Disposition: Nursing Home Facility External Planned Provider: TO BE DECIDED BY PATIENT DCP follow-up note: CM SPOKE TO PT IN ROOM REGARDING DISCHARGE PLANNING AND NEEDS. PT STILL CONSIDERING GOING TO LONG TERM FACILITY AT DISCHARGE FOR REHAB. CM DISCUSSED AVAILABILITY OF LONG TERM REHABS, LOCATIONS AND PROVIDERS. CHOICE LETTER PROVIDED. PT CONSIDERING [facility] AND REPORTS SHE WANTS TO AGAIN CONSULT WITH FAMILY PRIOR TO MAKING LONG TERM FACILITY CHOICE. PT ASKED TO BE CONSIDERED FOR INPATIENT REHAB "HERE" IN THE "MEANTIME". CM CALLED AND SPOKE TO BHARATHI, DIRECTOR OF [facility] IN[facility], THEY DECLINED PT DUE TO LACK OF PARTICIPATION IN THERAPY SERVICES. IMPORTANT MESSAGE FROM MEDICARE PROVIDED AND DISCUSSED. PT REFUSED TO SIGN THE MEDICARE MESSAGE REPORTING THIS DONE ON LAST THURSDAY. CM WAITING ON PT TO CONSULT WITH HER FAMILY AND PROVIDE LONG TERM FACILITY CHOICE FOR REHAB REFERRAL. TIAGO Joy DCP- Discharge Planning Updated by [id number]: Lizandro Petit on 05/14/18 3:[address] Patient Name: NINA ODELL Encounter No: [id number] : 1970 Primary Insurance: MEDICARE A & B Anticipated DC Date: 03-23-2018 Planned Disposition: Nursing Home Facility External Planned Provider: TO BE DETERMINED DCP follow-up note: CM SPOKE TO PT IN ROOM REGARDING DISCHARGE PLANNING AND NEEDS. PT NOW BELIVES SHE NEED REHAB AND WILL CONSIDER GOING TO LONG TERM FACILITY AT DISCHARGE FOR REHAB. CM DISCUSSED AVAILABILITY OF LONG TERM REHABS, LOCATIONS AND PROVIDERS. CHOICE LETTER PROVIDED. PT REPORTS SHE WANTS TO CONSULT WITH FAMILY PRIOR TO MAKING LONG TERM FACILITY CHOICE. CM WAITING ON PT TO CONSULT WITH HER FAMILY AND PROVIDE LONG TERM FACILITY CHOICE FOR REHAB REFERRAL. Lizandro Petit, CASE MANAGEMENT DCP- Discharge Planning Updated by [id number]: Sobia Jensen on 05/14/18 1:[address] CM spoke with Kay at [facility] regarding status of rehab screening. Kay informed CM that patient is not a good candidate for IRF and if rehab is needed CM should pursue SNF. CM informed Kaleb Petit CM. DCP- Discharge Planning Updated by [id number]: Bev Allan on 03/21/18 7:[address] Patient Name: NINA ODELL Admission Status: ER Accout number: [id number] Admission Date: 03-18-2018 : 1970 Admission Diagnosis:UNSPECIFIED ABDOMINAL PAIN Attending: ANGEL CHEN Current LOS: 3 Anticipated DC Date: 03-23-2018 Planned Disposition: Home Primary Insurance: MEDICARE A & B Discharge Planning Comments: CM MET WITH PATIENT REGARDING D/C NEEDS AND PLANS. PATIENT STATED SHE LIVES WITH HER DAUGHTER (FARHEEN) AND SHE WILL DRIVE HER HOME AT DISCHARGE. PATIENT STATED THERE ARE NO STEPS OR STAIRS AT HER HOME. PATIENT STATED SHE IS INDEPENDENT WITH HER CARE AND HAS A SHOWER CHAIR, BS COMMODE, WALKER, CPAP, NEBULIZER, PORTABLE O2, AND OXYGEN (3L) AT HOME. PATIENTS PCP IS DR. IRVIN AND [facility]. PATIENT REFUSED HOME HEALTH DUE TO HER INSURANCE CUTTING HER OSTOMY SUPPLIES OFF. CM ASKED IF SHE COULD GET HER OSTOMY SUPPLIES APPROVED AFTER DISCHARGED FROM HOME HEALTH SHE STATED NO AND I DO NOT WANT HOME HEALTH. PATIENT SIGNED THE IMM FORM. CM WILL CONTINUE TO FOLLOW PATIENT WITH D/C NEEDS AND PLANS. PCP DR. IRVIN PHARMACY IS [facility] [address] ZHONG (DAUGHTER) [phone] Pharmacy Stock Clerk: Bev Allan DCPIA - Discharge Planning Initial Assessment Updated by [id number]: Bev Allan on 03/21/18 7:47 am * Is the patient Alert and Oriented? Yes * How many steps to enter\\exit or inside your home? * PCP DR. IRVIN * Pharmacy [facility] [address] * Preadmission Environment Home with Family * ADLs Independent * Equipment Bedside Commode CPAP Nebulizer Ostomy Supplies Oxygen Shower Chair Walker * Other Equipment PORTABLE O2 * List name and contact numbers for known caregivers / representatives who currently or will assist patient after discharge: FARHEEN TURNER (DAUGHTER) [phone] * Verbal permission to speak to the caregivers and representatives has been obtained from the patient. Yes * Community resources currently utilized None * Additional services required to return to the preadmission environment? Yes * Can the patient safely return to the preadmission environment? Yes * Has this patient been hospitalized within the prior 30 days at any hospital? No External Providers External Provider: [facility] Next Contact Date: 05/19/2018 Service Request Date: Service Type: Resolution: Reviewer: Comments: Coverage Notice Reviewer: [id number] - Bev Allan Notice Issued Date-Time: 03/21/2018 7:34 Notice Type: IM Discharge Notice Notice Delivered To: Patient Relationship to Patient: Butane Compressor Operator Name: Delivery Method: HAND - Hand Delivered Jennifer Days: Prior Verbal Notification: Recipient Understood Notice: Yes Recipient Signature: Yes Med Rec Note Co-signed by Attending: Coverage Notice Comment: Reviewer: CEDRIC Petit Notice Issued Date-Time: 05/14/2018 16:35 Notice Type: IM Discharge Notice Notice Delivered To: Patient Relationship to Patient: Butane Compressor Operator Name: Delivery Method: HAND - Hand Delivered Jennifer Days: Prior Verbal Notification: Recipient Understood Notice: Yes Recipient Signature: Yes Med Rec Note Co-signed by Attending: Coverage Notice Comment: Reviewer: CEDRIC Petit Notice Issued Date-Time: 05/17/2018 15:00 Notice Type: IM Discharge Notice Notice Delivered To: Patient Relationship to Patient: Butane Compressor Operator Name: Delivery Method: HAND - Hand Delivered Jennifer Days: Prior Verbal Notification: Recipient Understood Notice: Yes Recipient Signature: Med Rec Note Co-signed by Attending: Coverage Notice Comment: REFUSED SIGNATURE REPORTING SHE DID THIS ON THURSDAY OF LAST WEEK. Reviewer: CEDRIC Petit Notice Issued Date-Time: 05/18/2018 9:20 Notice Type: Patient Choice Letter Notice Delivered To: Patient Relationship to Patient: Butane Compressor Operator Name: Delivery Method: HAND - Hand Delivered Jennifer Days: Prior Verbal Notification: Recipient Understood Notice: Yes Recipient Signature: Med Rec Note Co-signed by Attending: Coverage Notice Comment: CHOICE FOR [facility] VERBALLY, WITNESSED BY ZAINA ESCOBEDO export: 05/17/18 4:18 Patient Name: NINA ODELL Page [id number] at 0934 All edits/amendments must be made on the electronic document DICTATION DATE: 05/18/18933 APPLICATION INTERNSHIP: WIL 05/18/18933 RPT#: [id number] DC DATE: STATUS: ADM IN [facility] [address] [place] [address] END OF REPORT
--- NOTE | ~2018-03-18 | MORECARE ---
CASE MANAGEMENT DISCHARGE SUMMARY PATIENT: NINA ODELL UNIT: [id number] ADM DATE: 03/18/18 AGE: 47 : 66 SEX: F ROOM/BED: D.2107 AUTHOR: CHRISTIANO,DOC PHYSICIAN: REFERRING PHYSICIAN: ANGEL CHEN MD DATE OF SERVICE: 05/18/18 Discharge Plan Patient Name: NINA ODELL Facility: [facility]:[place] : 1970 Planned Disposition: Alf Facility Anticipated Discharge Date: 05/19/18 Discharge Date: Expected LOS: 62 Initial Reviewer: [id number] Initial Review Date: 03/21/2018 Generated: 05/18/18 3:58 pm Comments DCP- Discharge Planning Updated by [id number]: Lizandro Petit on 05/18/18 1:[address] Patient Name: NINA ODELL Encounter No: [id number] : 1970 Primary Insurance: MEDICARE A & B Anticipated DC Date: 05-19-2018 Planned Disposition: Alf Facility External Planned Provider: [facility], MEDICARE REHAB BED DCP follow-up note: CM RECEIVED CALL FROM ABA OF [facility], THEY WILL ACCEPT PT FOR DISCHARGE, NEED FAMILY TO ASSIST WITH SIGNING IN PT FOR REHAB. CM SPOKE TO PT IN ROOM, PT REPORTS HER DAUGHTER FARHEEN WILL ASSIST IN COMPLETING PAPERWORK FOR ADMISSION TO [facility]. PT DOES NOT WANT CM CALLING HER DAUGHTER AND WILL CALL FARHEEN HERSELF AND HAVE HER CALL [facility] IN THE MORNING TO COMPLETE ADMISSION PAPERWORK. CM PROVIDED CONTACT NAME AND PHONE NUMBER TO PT OF ABA AT [facility], . CM CALLED AND NOTIFIED ABA OF [facility]. CM WAITING PT TO HAVE FAMILY COMPLETE ADMISSION PAPERWORK WHICH SHOULD BE DONE MORNING OF 05-19-18. FOR DISCHARGE, CM TO FAX DISCHARGE INFORMATION TO [facility] AT [phone]. NURSE REPORT TO BE CALLED TO [facility] AT [phone]. [facility] TO ARRANGE VAN TRANSPORT. TIAGO Joy DCP- Discharge Planning Updated by [id number]: Lizandro Petit on 05/18/18 9:[address] Patient Name: NINA ODELL Encounter No: [id number] : 1970 Primary Insurance: MEDICARE A & B Anticipated DC Date: 05-19-2018 Planned Disposition: Alf Facility External Planned Provider: [facility], MEDICARE REHAB BED DCP follow-up note: CM SPOKE TO PT IN ROOM, NOTIFIED OF INPATIENT REHAB DECLINATION. PT UPSET. CM DISCUSSED AVAILABILTY OF INPATIENT REHAB AT [facility]. PT DOES NOT WANT REFERRED THERE. PT ASKED FOR REFERRAL TO [facility] FOR REHAB. CHOICE LETTER COMPLETED. CM CALLED [facility] AT [phone], SPOKE TO ABA AND PROVIDED REFERRAL INFORMATION; FAXED REFERRAL TO [facility] AT [phone]. CM WAITING ADMISSION DETERMINATION FROM [facility]. Lizandro Petit CASE MANAGEMENT DCP- Discharge Planning Updated by [id number]: Lizandro Petit on 05/17/18 4:[address] Patient Name: NINA ODELL Encounter No: [id number] : 1970 Primary Insurance: MEDICARE A & B Anticipated DC Date: 03-23-2018 Planned Disposition: Alf Facility External Planned Provider: TO BE DECIDED BY PATIENT DCP follow-up note: CM SPOKE TO PT IN ROOM REGARDING DISCHARGE PLANNING AND NEEDS. PT STILL CONSIDERING GOING TO NURSING HOME FACILITY AT DISCHARGE FOR REHAB. CM DISCUSSED AVAILABILITY OF NURSING HOME REHABS, LOCATIONS AND PROVIDERS. CHOICE LETTER PROVIDED. PT CONSIDERING [facility] AND REPORTS SHE WANTS TO AGAIN CONSULT WITH FAMILY PRIOR TO MAKING NURSING HOME FACILITY CHOICE. PT ASKED TO BE CONSIDERED FOR INPATIENT REHAB "HERE" IN THE "MEANTIME". CM CALLED AND SPOKE TO BHARATHI, DIRECTOR OF [facility] INPATIENT [facility], THEY DECLINED PT DUE TO LACK OF PARTICIPATION IN THERAPY SERVICES. IMPORTANT MESSAGE FROM MEDICARE PROVIDED AND DISCUSSED. PT REFUSED TO SIGN THE MEDICARE MESSAGE REPORTING THIS DONE ON LAST THURSDAY. CM WAITING ON PT TO CONSULT WITH HER FAMILY AND PROVIDE NURSING HOME FACILITY CHOICE FOR REHAB REFERRAL. TIAGO Joy MANAGEMENT DCP- Discharge Planning Updated by [id number]: Lizandro Petit on 05/14/18 3:[address] Patient Name: NINA ODELL Encounter No: [id number] : 1970 Primary Insurance: MEDICARE A & B Anticipated DC Date: 03-23-2018 Planned Disposition: Alf Facility External Planned Provider: TO BE DETERMINED DCP follow-up note: CM SPOKE TO PT IN ROOM REGARDING DISCHARGE PLANNING AND NEEDS. PT NOW BELIVES SHE NEED REHAB AND WILL CONSIDER GOING TO NURSING HOME FACILITY AT DISCHARGE FOR REHAB. CM DISCUSSED AVAILABILITY OF NURSING HOME REHABS, LOCATIONS AND PROVIDERS. CHOICE LETTER PROVIDED. PT REPORTS SHE WANTS TO CONSULT WITH FAMILY PRIOR TO MAKING NURSING HOME FACILITY CHOICE. CM WAITING ON PT TO CONSULT WITH HER FAMILY AND PROVIDE NURSING HOME FACILITY CHOICE FOR REHAB REFERRAL. Lizandro Petit, CASE MANAGEMENT DCP- Discharge Planning Updated by [id number]: Sobia Jensen on 05/14/18 1:[address] CM spoke with Kay at [facility] regarding status of rehab screening. Kay informed CM that patient is not a good candidate for IRF and if rehab is needed CM should pursue SNF. CM informed Kaleb Petit CM. DCP- Discharge Planning Updated by [id number]: Bev Allan on 03/21/18 7:[address] Patient Name: NINA ODELL Admission Status: ER Accout number: [id number] Admission Date: 03-18-2018 : 1970 Admission Diagnosis:UNSPECIFIED ABDOMINAL PAIN Attending: ANGEL CHEN Current LOS: 3 Anticipated DC Date: 03-23-2018 Planned Disposition: Home Primary Insurance: MEDICARE A & B Discharge Planning Comments: CM MET WITH PATIENT REGARDING D/C NEEDS AND PLANS. PATIENT STATED SHE LIVES WITH HER DAUGHTER (FARHEEN) AND SHE WILL DRIVE HER HOME AT DISCHARGE. PATIENT STATED THERE ARE NO STEPS OR STAIRS AT HER HOME. PATIENT STATED SHE IS INDEPENDENT WITH HER CARE AND HAS A SHOWER CHAIR, BS COMMODE, WALKER, CPAP, NEBULIZER, PORTABLE O2, AND OXYGEN (3L) AT HOME. PATIENTS PCP IS DR. IRVIN AND [facility] [address] [facility]. PATIENT REFUSED HOME HEALTH DUE TO HER INSURANCE CUTTING HER OSTOMY SUPPLIES OFF. CM ASKED IF SHE COULD GET HER OSTOMY SUPPLIES APPROVED AFTER DISCHARGED FROM HOME HEALTH SHE STATED NO AND I DO NOT WANT HOME HEALTH. PATIENT SIGNED THE IMM FORM. CM WILL CONTINUE TO FOLLOW PATIENT WITH D/C NEEDS AND PLANS. PCP DR. IRVIN PHARMACY IS [facility] ON [address] ZHONG (DAUGHTER) [phone] Churn Operator: Bev Allan DCPIA - Discharge Planning Initial Assessment Updated by [id number]: Bev Allan on 03/21/18 7:47 am * Is the patient Alert and Oriented? Yes * How many steps to enter\\exit or inside your home? * PCP DR. IRVIN * Pharmacy [facility] [address] * Preadmission Environment Home with Family * ADLs Independent * Equipment Bedside Commode CPAP Nebulizer Ostomy Supplies Oxygen Shower Chair Walker * Other Equipment PORTABLE O2 * List name and contact numbers for known caregivers / representatives who currently or will assist patient after discharge: FARHEEN TURNER (DAUGHTER) [phone] * Verbal permission to speak to the caregivers and representatives has been obtained from the patient. Yes * Community resources currently utilized None * Additional services required to return to the preadmission environment? Yes * Can the patient safely return to the preadmission environment? Yes * Has this patient been hospitalized within the prior 30 days at any hospital? No Coverage Notice Reviewer: [id number] Wyatt Allan Notice Issued Date-Time: 03/21/2018 7:34 Notice Type: IM Discharge Notice Notice Delivered To: Patient Relationship to Patient: Driver'S License Examiner Name: Delivery Method: HAND - Hand Delivered Jennifer Days: Prior Verbal Notification: Recipient Understood Notice: Yes Recipient Signature: Yes Med Rec Note Co-signed by Attending: Coverage Notice Comment: Reviewer: CEDRIC Petit Notice Issued Date-Time: 05/14/2018 16:35 Notice Type: IM Discharge Notice Notice Delivered To: Patient Relationship to Patient: Driver'S License Examiner Name: Delivery Method: HAND - Hand Delivered Jennifer Days: Prior Verbal Notification: Recipient Understood Notice: Yes Recipient Signature: Yes Med Rec Note Co-signed by Attending: Coverage Notice Comment: Reviewer: CEDRIC Petit Notice Issued Date-Time: 05/17/2018 15:00 Notice Type: IM Discharge Notice Notice Delivered To: Patient Relationship to Patient: Driver'S License Examiner Name: Delivery Method: HAND - Hand Delivered Jennifer Days: Prior Verbal Notification: Recipient Understood Notice: Yes Recipient Signature: Med Rec Note Co-signed by Attending: Coverage Notice Comment: REFUSED SIGNATURE REPORTING SHE DID THIS ON THURSDAY OF LAST WEEK. Reviewer: CEDRIC Petit Notice Issued Date-Time: 05/18/2018 9:20 Notice Type: Patient Choice Letter Notice Delivered To: Patient Relationship to Patient: Driver'S License Examiner Name: Delivery Method: HAND - Hand Delivered Jennifer Days: Prior Verbal Notification: Recipient Understood Notice: Yes Recipient Signature: Med Rec Note Co-signed by Attending: Coverage Notice Comment: CHOICE FOR [facility] VERBALLY, WITNESSED BY ZAINA ESCOBEDO export: 05/18/18 9:24 Patient Name: NINA ODELL Page [id number] at 1458 All edits/amendments must be made on the electronic document DICTATION DATE: 05/18/181456 CROP OR LIVESTOCK TENANT FARMER: WIL 05/18/181456 RPT#: [id number] DC DATE: STATUS: ADM IN [facility] [address] [place] [address] END OF REPORT
--- NOTE | ~2018-03-18 | MORECARE ---
CASE MANAGEMENT DISCHARGE SUMMARY PATIENT: NINA ODELL UNIT: [id number] ADM DATE: 03/18/18 AGE: 47 : 66 SEX: F ROOM/BED: D.2107 AUTHOR: CHRISTIANO,DOC PHYSICIAN: REFERRING PHYSICIAN: ANGEL CHEN MD DATE OF SERVICE: 05/19/18 Discharge Plan Patient Name: NINA ODELL Facility: [facility]:[place] : 1970 Planned Disposition: [facility] Facility Anticipated Discharge Date: 05/19/18 Discharge Date: Expected LOS: 62 Initial Reviewer: [id number] Initial Review Date: 03/21/2018 Generated: 05/19/18 12:33 pm Comments DCP- Discharge Planning Updated by [email or web address]: Lizandro Petit on 05/19/18 10:[address] Patient Name: NINA ODELL Encounter No: [id number] : 1970 Primary Insurance: MEDICARE A & B Anticipated DC Date: 05-19-2018 Planned Disposition: [facility] Facility External Planned Provider: [facility], MEDICARE REHAB BED DCP follow-up note: CM SPOKE TO PT IN ROOM AT APPROXIMATELY 0800 HOURS, DISCUSSED CONTACTING PT'S DAUGHTER TO SIGN ADMISSION PAPERS FOR [facility] SO THAT PT CAN GO TO REHAB AND ALSO DISCUSSED PT HAVING BEEN DISCHARGED. PT REPORTS NEEDING TIME TO "COLLECT HERSELF" AND WILL HAVE HER DAUGHTER TAKE CARE OF [facility] THIS MORNING. JANETTE CALLED ABA AT [facility], WHO REPORTS ABILITY TO ACCEPT ONCE ADMISSION PAPERS ARE SIGNED. JANETTE LATER RECEIVED CALL FROM ABA WHO INFORMED CM THAT FARHEEN SIGNED THE PAPERS AND HODGE WILL SEND VAN TO [facility] PT. LEAD REFINERY SUPERVISOR NURSE NOTIFIED. CM FAXED DISCHARGE INFORMATION TO [facility] AT [phone]. NURSE REPORT TO BE CALLED TO [facility] AT [phone]. [facility] TO ARRANGE VAN TRANSPORT. TIAGO Joy DCP- Discharge Planning Updated by [id number]: Lizandro Petit on 05/18/18 1:[address] Patient Name: NINA ODELL Encounter No: [id number] : 1970 Primary Insurance: MEDICARE A & B Anticipated DC Date: 05-19-2018 Planned Disposition: [facility] Facility External [facility]HAB BED DCP follow-up note: CM RECEIVED CALL FROM ABA OF [facility], THEY WILL ACCEPT PT FOR DISCHARGE, NEED FAMILY TO ASSIST WITH SIGNING IN PT FOR REHAB. CM SPOKE TO PT IN ROOM, PT REPORTS HER DAUGHTER FARHEEN WILL ASSIST IN COMPLETING PAPERWORK FOR ADMISSION TO [facility]. PT DOES NOT WANT CM CALLING HER DAUGHTER AND WILL CALL FARHEEN HERSELF AND HAVE HER CALL [facility] IN THE MORNING TO COMPLETE ADMISSION PAPERWORK. CM PROVIDED CONTACT NAME AND PHONE NUMBER TO PT OF ABA AT [facility], . CM CALLED AND NOTIFIED ABA OF [facility]. CM WAITING PT TO HAVE FAMILY COMPLETE ADMISSION PAPERWORK WHICH SHOULD BE DONE MORNING OF 05-19-18. FOR DISCHARGE, CM TO FAX DISCHARGE INFORMATION TO [facility] AT [phone]. NURSE REPORT TO BE CALLED TO [facility] AT [phone]. [facility] TO ARRANGE VAN TRANSPORT. Lizandro Petit CASE WIL DCP- Discharge Planning Updated by [id number]: Lizandro Petit on 05/18/18 9:[address] Patient Name: NINA ODELL Encounter No: [id number] : 1970 Primary Insurance: MEDICARE A & B Anticipated DC Date: 05-19-2018 Planned Disposition: [facility] Facility External Planned Provider: [facility], MEDICARE REHAB BED DCP follow-up note: CM SPOKE TO PT IN ROOM, NOTIFIED OF INPATIENT REHAB DECLINATION. PT UPSET. CM DISCUSSED AVAILABILTY OF INPATIENT REHAB AT [facility]. PT DOES NOT WANT REFERRED THERE. PT ASKED FOR REFERRAL TO [facility] FOR REHAB. CHOICE LETTER COMPLETED. CM CALLED [facility] AT [phone], SPOKE TO ABA AND PROVIDED REFERRAL INFORMATION; FAXED REFERRAL TO [facility] AT [phone]. CM WAITING ADMISSION DETERMINATION FROM [facility]. TIAGO Joy MANAGEMENT DCP- Discharge Planning Updated by [id number]: Lizandro Petit on 05/17/18 4:[address] Patient Name: NINA ODELL Encounter No: [id number] : 1970 Primary Insurance: MEDICARE A & B Anticipated DC Date: 03-23-2018 Planned Disposition: [facility] Facility External Planned Provider: TO BE DECIDED BY PATIENT DCP follow-up note: CM SPOKE TO PT IN ROOM REGARDING DISCHARGE PLANNING AND NEEDS. PT STILL CONSIDERING GOING TO GROUP HOME FACILITY AT DISCHARGE FOR REHAB. CM DISCUSSED AVAILABILITY OF GROUP HOME REHABS, LOCATIONS AND PROVIDERS. CHOICE LETTER PROVIDED. PT CONSIDERING [facility]ARE AND REPORTS SHE WANTS TO AGAIN CONSULT WITH FAMILY PRIOR TO MAKING GROUP HOME FACILITY CHOICE. PT ASKED TO BE CONSIDERED FOR INPATIENT REHAB "HERE" IN THE "MEANTIME". CM CALLED AND SPOKE TO BHARATHI, DIRECTOR OF [facility], THEY DECLINED PT DUE TO LACK OF PARTICIPATION IN THERAPY SERVICES. IMPORTANT MESSAGE FROM MEDICARE PROVIDED AND DISCUSSED. PT REFUSED TO SIGN THE MEDICARE MESSAGE REPORTING THIS DONE ON LAST THURSDAY. CM WAITING ON PT TO CONSULT WITH HER FAMILY AND PROVIDE GROUP HOME FACILITY CHOICE FOR REHAB REFERRAL. Lizandro Petit, CASE MANAGEMENT DCP- Discharge Planning Updated by [id number]: Lizandro Petit on 05/14/18 3:[address] Patient Name: NINA ODELL Encounter No: [id number] : 1970 Primary Insurance: MEDICARE A & B Anticipated DC Date: 03-23-2018 Planned Disposition: [facility] Facility External Planned Provider: TO BE DETERMINED DCP follow-up note: CM SPOKE TO PT IN ROOM REGARDING DISCHARGE PLANNING AND NEEDS. PT NOW BELIVES SHE NEED REHAB AND WILL CONSIDER GOING TO GROUP HOME FACILITY AT DISCHARGE FOR REHAB. CM DISCUSSED AVAILABILITY OF GROUP HOME REHABS, LOCATIONS AND PROVIDERS. CHOICE LETTER PROVIDED. PT REPORTS SHE WANTS TO CONSULT WITH FAMILY PRIOR TO MAKING GROUP HOME FACILITY CHOICE. CM WAITING ON PT TO CONSULT WITH HER FAMILY AND PROVIDE GROUP HOME FACILITY CHOICE FOR REHAB REFERRAL. Lizandro Petit, CASE MANAGEMENT DCP- Discharge Planning Updated by [id number]: Sobia Jensen on 05/14/18 1:[address] CM spoke with Kay at [facility] IR[facility] regarding status of rehab screening. Kay informed CM that patient is not a good candidate for IRF and if rehab is needed CM should pursue SNF. CM informed Kaleb Petit CM. DCP- Discharge Planning Updated by [id number]: Bev Allan on 03/21/18 7:[address] Patient Name: NINA ODELL Admission Status: ER Accout number: [id number] Admission Date: 03-18-2018 : 1970 Admission Diagnosis:UNSPECIFIED ABDOMINAL PAIN Attending: ANGEL CHEN Current LOS: 3 Anticipated DC Date: 03-23-2018 Planned Disposition: Home Primary Insurance: MEDICARE A & B Discharge Planning Comments: CM MET WITH PATIENT REGARDING D/C NEEDS AND PLANS. PATIENT STATED SHE LIVES WITH HER DAUGHTER (FARHEEN) AND SHE WILL DRIVE HER HOME AT DISCHARGE. PATIENT STATED THERE ARE NO STEPS OR STAIRS AT HER HOME. PATIENT STATED SHE IS INDEPENDENT WITH HER CARE AND HAS A SHOWER CHAIR, BS COMMODE, WALKER, CPAP, NEBULIZER, PORTABLE O2, AND OXYGEN (3L) AT HOME. PATIENTS PCP IS DR. IRVIN AND PHARMACY IS [facility] [address] PATIENT REFUSED HOME HEALTH DUE TO HER INSURANCE CUTTING HER OSTOMY SUPPLIES OFF. CM ASKED IF SHE COULD GET HER OSTOMY SUPPLIES APPROVED AFTER DISCHARGED FROM HOME HEALTH SHE STATED NO AND I DO NOT WANT HOME HEALTH. PATIENT SIGNED THE IMM FORM. CM WILL CONTINUE TO FOLLOW PATIENT WITH D/C NEEDS AND PLANS. PCP DR. IRVIN PHARMACY IS [facility] ON [address] FARHEEN (DAUGHTER) [phone] Sales And Marketing Administrator: Bev Allan [facility] - Discharge Planning Initial Assessment Updated by [email or web address]: Bev Allan on 03/21/18 7:47 am * Is the patient Alert and Oriented? Yes * How many steps to enter\\exit or inside your home? * PCP DR. IRVIN * [facility] [address] * Preadmission Environment Home with Family * ADLs Independent * Equipment Bedside Commode CPAP Nebulizer Ostomy Supplies Oxygen Shower Chair Walker * Other Equipment PORTABLE O2 * List name and contact numbers for known caregivers / representatives who currently or will assist patient after discharge: FARHEEN TURNER (DAUGHTER) [phone] * Verbal permission to speak to the caregivers and representatives has been obtained from the patient. Yes * Community resources currently utilized None * Additional services required to return to the preadmission environment? Yes * Can the patient safely return to the preadmission environment? Yes * Has this patient been hospitalized within the prior 30 days at any hospital? No Coverage Notice Reviewer: [id number] Wyatt Petit Notice Issued Date-Time: 05/18/2018 9:20 Notice Type: Patient Choice Letter Notice Delivered To: Patient Relationship to Patient: Data Modeling Specialist Name: Delivery Method: HAND - Hand Delivered Jennifer Days: Prior Verbal Notification: Recipient Understood Notice: Yes Recipient Signature: Med Rec Note Co-signed by Attending: Coverage Notice Comment: CHOICE FOR [facility] CARE VERBALLY, WITNESSED BY ZAINA DUNCAN Reviewer: [id number] Petit Notice Issued Date-Time: 05/17/2018 15:00 Notice Type: IM Discharge Notice Notice Delivered To: Patient Relationship to Patient: Data Modeling Specialist Name: Delivery Method: HAND - Hand Delivered Jennifer Days: Prior Verbal Notification: Recipient Understood Notice: Yes Recipient Signature: Med Rec Note Co-signed by Attending: Coverage Notice Comment: REFUSED SIGNATURE REPORTING SHE DID THIS ON THURSDAY OF LAST WEEK. Reviewer: [id number] Petit Notice Issued Date-Time: 05/14/2018 16:35 Notice Type: IM Discharge Notice Notice Delivered To: Patient Relationship to Patient: Data Modeling Specialist Name: Delivery Method: HAND - Hand Delivered Jennifer Days: Prior Verbal Notification: Recipient Understood Notice: Yes Recipient Signature: Yes Med Rec Note Co-signed by Attending: Coverage Notice Comment: Reviewer: [id number] Wyatt Allan Notice Issued Date-Time: 03/21/2018 7:34 Notice Type: IM Discharge Notice Notice Delivered To: Patient Relationship to Patient: Data Modeling Specialist Name: Delivery Method: HAND - Hand Delivered Jennifer Days: Prior Verbal Notification: Recipient Understood Notice: Yes Recipient Signature: Yes Med Rec Note Co-signed by Attending: Coverage Notice Comment: Last DP export: 05/19/18 10:26 Patient Name: NINA ODELL Page [id number] at 1133 All edits/amendments must be made on the electronic document DICTATION DATE: 05/19/18 113 SEWAGE DISPOSAL WORKER: WIL 05/19/18 113 RPT#: [id number] DC DATE: STATUS: ADM IN [facility] [address] [place] [address] END OF REPORT
--- NOTE | ~2018-03-18 | MORECARE ---
CASE MANAGEMENT DISCHARGE SUMMARY PATIENT: NINA ODELL UNIT: [id number] ADM DATE: 03/18/18 AGE: 47 : 66 SEX: F ROOM/BED: D.2107 AUTHOR: CHRISTIANO,DOC PHYSICIAN: REFERRING PHYSICIAN: ANGEL CHEN MD DATE OF SERVICE: 05/14/18 Discharge Plan Patient Name: NINA ODELL Facility: [facility]:[place] : 1970 Planned Disposition: Senior Living Facility Anticipated Discharge Date: 03/23/18 Discharge Date: Expected LOS: 5 Initial Reviewer: [id number] Initial Review Date: 03/21/2018 Generated: 05/14/18 5:52 pm Comments DCP- Discharge Planning Updated by [id number]: Sobia Jensen on 05/14/18 1:[address] CM spoke with Kay at [facility] IR[facility] regarding status of rehab screening. Kay informed CM that patient is not a good candidate for IRF and if rehab is needed CM should pursue SNF. CM informed Kaleb Petit CM. DCP- Discharge Planning Updated by [id number]: Bev Allan on 03/21/18 7:[address] Patient Name: NINA ODELL Admission Status: ER Accout number: [id number] Admission Date: 03-18-2018 : 1970 Admission Diagnosis:UNSPECIFIED ABDOMINAL PAIN Attending: ANGEL CHEN Current LOS: 3 Anticipated DC Date: 03-23-2018 Planned Disposition: Home Primary Insurance: MEDICARE A & B Discharge Planning Comments: CM MET WITH PATIENT REGARDING D/C NEEDS AND PLANS. PATIENT STATED SHE LIVES WITH HER DAUGHTER (FARHEEN) AND SHE WILL DRIVE HER HOME AT DISCHARGE. PATIENT STATED THERE ARE NO STEPS OR STAIRS AT HER HOME. PATIENT STATED SHE IS INDEPENDENT WITH HER CARE AND HAS A SHOWER CHAIR, BS COMMODE, WALKER, CPAP, NEBULIZER, PORTABLE O2, AND OXYGEN (3L) AT HOME. PATIENTS PCP IS DR. IRVIN AND PHARMACY IS [facility]. PATIENT REFUSED HOME HEALTH DUE TO HER INSURANCE CUTTING HER OSTOMY SUPPLIES OFF. CM ASKED IF SHE COULD GET HER OSTOMY SUPPLIES APPROVED AFTER DISCHARGED FROM HOME HEALTH SHE STATED NO AND I DO NOT WANT HOME HEALTH. PATIENT SIGNED THE IMM FORM. CM WILL CONTINUE TO FOLLOW PATIENT WITH D/C NEEDS AND PLANS. PCP DR. IRVIN PHARMACY IS [facility] [address] ZHONG (DAUGHTER) [phone] Personnel Security Specialist: Bev ROMERO - Discharge Planning Initial Assessment Updated by [id number]: Bev Allan on 03/21/18 7:47 am * Is the patient Alert and Oriented? Yes * How many steps to enter\exit or inside your home? * PCP DR. IRVIN * Pharmacy [facility] [address] * Preadmission Environment Home with Family * ADLs Independent * Equipment Bedside Commode CPAP Nebulizer Ostomy Supplies Oxygen Shower Chair Walker * Other Equipment PORTABLE O2 * List name and contact numbers for known caregivers / representatives who currently or will assist patient after discharge: FARHEEN TURNER (DAUGHTER) [phone] * Verbal permission to speak to the caregivers and representatives has been obtained from the patient. Yes * Community resources currently utilized None * Additional services required to return to the preadmission environment? Yes * Can the patient safely return to the preadmission environment? Yes * Has this patient been hospitalized within the prior 30 days at any hospital? No Coverage Notice Reviewer: [id number] - Bev Allan Notice Issued Date-Time: 03/21/2018 7:34 Notice Type: IM Discharge Notice Notice Delivered To: Patient Relationship to Patient: Computer Consultant Name: Delivery Method: HAND - Hand Delivered Jennifer Days: Prior Verbal Notification: Recipient Understood Notice: Yes Recipient Signature: Yes Med Rec Note Co-signed by Attending: Coverage Notice Comment: Reviewer: [id number] - Lizandro Petit Notice Issued Date-Time: 05/14/2018 16:35 Notice Type: IM Discharge Notice Notice Delivered To: Patient Relationship to Patient: Computer Consultant Name: Delivery Method: HAND - Hand Delivered Jennifer Days: Prior Verbal Notification: Recipient Understood Notice: Yes Recipient Signature: Yes Med Rec Note Co-signed by Attending: Coverage Notice Comment: Last DP export: 05/14/18 1:45 p Patient Name: NINA ODELL Page [phone] at 1652 All edits/amendments must be made on the electronic document DICTATION DATE: 05/14/18 165 EMERGENCY MEDICINE PHYSICIAN: WIL 05/14/18 1652 RPT#: [id number] DC DATE: STATUS: ADM IN [facility] [address] [place] [address] END OF REPORT
--- NOTE | ~2018-03-18 | EC ---
PATIENT:NINA ODELL DATE OF SERVICE: 03/18/18 SEX: F MEDICAL RECORD: [id number] DATE OF : [birth year] LOCATION:[facility] AGE OF PATIENT: 47 ADMISSION DATE: 03/18/18 REFERRING PHYSICIAN: INTERPRETING PHYSICIAN: BASIA BLEVINS MD ECHOCARDIOGRAM REPORT ECHO CHARGES 4 ECHO COMPLETE Date: 03/23/18 CLINICAL DIAGNOSIS: CHF ECHOCARDIOGRAPHIC MEASUREMENTS (adult normal given) AC root (d.<3.7cm) 2.7 cm LV Septum d (<1.2 cm> 0.9 cm Valve Excursion 1.6 cm LV Septum (systole) 1.0 cm Left Atria (s.<4.0cm> 2.8 cm LVPW d(<1.2cm) 0.7 cm RV (d.<2.3cm) 3.0 cm LVPW (sytole) 0.8 cm LV diastole(<5.6CM) 4.5 cm MV E-F(>70mm/sec) cm LV systole 3.8 cm LVOT Diameter 1.8 cm MV exc.(>10mm) cm Est.ejection fraction (50-75%) % DOPPLER: LVIT cm/sec A 92 cm/sec E 61 cm/sec LA cm/sec RVSP 45.7 mmHg LVOT 92 cm/sec AOP1/2T m/s Asc. Ao 170 cm/sec RVOT 75 cm/sec RA cm/sec PA 89 cm/sec AV Gradient Peak 11.6 mmHg AV Mean 7.6 mmHg AV Area 1.4 cm MV Gradient Peak 8.3 mmHg MV Mean 4.5 mmHg MV Area cm COMMENTS: Stitcher Special Machine: Heydi [facility] Air Operations Manager: 1 Dr. Blevins TAPE# PACS Pericardial Effusion N DATE OF SERVICE: 03/24/2018 DATE OF SERVICE: 03/24/2018 FINDINGS: 1. Left ventricular chamber size is within normal limits. Left ventricular systolic function is normal. Overall ejection fraction estimated at 60%. 2. Left atrium, right atrium, and right ventricle chamber sizes are within normal limits. 3. Valvular structures have normal structure and motion. ECHOCARDIOGRAM REPORT [id number] NINA ODELL 4. Doppler interrogation only reveals mild tricuspid regurgitation, no other valvular insufficiency or stenosis. Pulmonary systolic pressure is estimated at 45 mmHg. 5. No evidence of pericardial effusion or left ventricular thrombus. TRANSINT:[id number] Voice Confirmation ID: [id number] DOCUMENT ID: [id number] BASIA BLEVINS MD at 1722 CC: [id number] DICTATION DATE: 03/24/18 1012 GLUING MACHINE OPERATOR ELECTRONIC: 03/24/18 1029 ADM IN [facility] [address] [place] [address]
--- NOTE | ~2018-03-18 | MORECARE ---
CASE MANAGEMENT DISCHARGE SUMMARY PATIENT: NINA ODELL UNIT: [id number] ADM DATE: 03/18/18 AGE: 47 : 66 SEX: F ROOM/BED: D.2107 AUTHOR: CHRISTIANO,DOC PHYSICIAN: REFERRING PHYSICIAN: ANGEL CHEN MD DATE OF SERVICE: 05/17/18 Discharge Plan Patient Name: NINA ODELL Facility: [facility]:[place] : 1970 Planned Disposition: Shelter Facility Anticipated Discharge Date: 03/23/18 Discharge Date: Expected LOS: 5 Initial Reviewer: [id number] Initial Review Date: 03/21/2018 Generated: 05/17/18 6:18 pm Comments DCP- Discharge Planning Updated by [id number]: Lizandro Petit on 05/17/18 4:[address] Patient Name: NINA ODELL Encounter No: [id number] : 1970 Primary Insurance: MEDICARE A & B Anticipated DC Date: 03-23-2018 Planned Disposition: Shelter Facility External Planned Provider: TO BE DECIDED BY PATIENT DCP follow-up note: CM SPOKE TO PT IN ROOM REGARDING DISCHARGE PLANNING AND NEEDS. PT STILL CONSIDERING GOING TO SENIOR LIVING FACILITY AT DISCHARGE FOR REHAB. CM DISCUSSED AVAILABILITY OF SENIOR LIVING REHABS, LOCATIONS AND PROVIDERS. CHOICE LETTER PROVIDED. PT CONSIDERING [facility] CARE AND REPORTS SHE WANTS TO AGAIN CONSULT WITH FAMILY PRIOR TO MAKING SENIOR LIVING FACILITY CHOICE. PT ASKED TO BE CONSIDERED FOR INPATIENT REHAB "HERE" IN THE "MEANTIME". CM CALLED AND SPOKE TO BHARATHI, DIRECTOR OF [facility], THEY DECLINED PT DUE TO LACK OF PARTICIPATION IN THERAPY SERVICES. IMPORTANT MESSAGE FROM MEDICARE PROVIDED AND DISCUSSED. PT REFUSED TO SIGN THE MEDICARE MESSAGE REPORTING THIS DONE ON LAST THURSDAY. CM WAITING ON PT TO CONSULT WITH HER FAMILY AND PROVIDE SENIOR LIVING FACILITY CHOICE FOR REHAB REFERRAL. TIAGO Joy DCP- Discharge Planning Updated by [id number]: Lizandro Petit on 05/14/18 3:[address] Patient Name: NINA ODELL Encounter No: [id number] : 1970 Primary Insurance: MEDICARE A & B Anticipated DC Date: 03-23-2018 Planned Disposition: Shelter Facility External Planned Provider: TO BE DETERMINED DCP follow-up note: CM SPOKE TO PT IN ROOM REGARDING DISCHARGE PLANNING AND NEEDS. PT NOW BELIVES SHE NEED REHAB AND WILL CONSIDER GOING TO SENIOR LIVING FACILITY AT DISCHARGE FOR REHAB. CM DISCUSSED AVAILABILITY OF SENIOR LIVING REHABS, LOCATIONS AND PROVIDERS. CHOICE LETTER PROVIDED. PT REPORTS SHE WANTS TO CONSULT WITH FAMILY PRIOR TO MAKING SENIOR LIVING FACILITY CHOICE. CM WAITING ON PT TO CONSULT WITH HER FAMILY AND PROVIDE SENIOR LIVING FACILITY CHOICE FOR REHAB REFERRAL. Lizandro Petit, CASE MANAGEMENT DCP- Discharge Planning Updated by [id number]: Sobia Jensen on 05/14/18 1:[address] CM spoke with Kay at [facility] regarding status of rehab screening. Kay informed CM that patient is not a good candidate for IRF and if rehab is needed CM should pursue SNF. CM informed Kaleb Petit CM. DCP- Discharge Planning Updated by [id number]: Bev Allan on 03/21/18 7:[address] Patient Name: NINA ODELL Admission Status: ER Accout number: [id number] Admission Date: 03-18-2018 : 1970 Admission Diagnosis:UNSPECIFIED ABDOMINAL PAIN Attending: ANGEL CHEN Current LOS: 3 Anticipated DC Date: 03-23-2018 Planned Disposition: Home Primary Insurance: MEDICARE A & B Discharge Planning Comments: CM MET WITH PATIENT REGARDING D/C NEEDS AND PLANS. PATIENT STATED SHE LIVES WITH HER DAUGHTER (FARHEEN) AND SHE WILL DRIVE HER HOME AT DISCHARGE. PATIENT STATED THERE ARE NO STEPS OR STAIRS AT HER HOME. PATIENT STATED SHE IS INDEPENDENT WITH HER CARE AND HAS A SHOWER CHAIR, BS COMMODE, WALKER, CPAP, NEBULIZER, PORTABLE O2, AND OXYGEN (3L) AT HOME. PATIENTS PCP IS DR. IRVIN AND PHARMACY [facility] [address]. PATIENT REFUSED HOME HEALTH DUE TO HER INSURANCE CUTTING HER OSTOMY SUPPLIES OFF. CM ASKED IF SHE COULD GET HER OSTOMY SUPPLIES APPROVED AFTER DISCHARGED FROM HOME HEALTH SHE STATED NO AND I DO NOT WANT HOME HEALTH. PATIENT SIGNED THE IMM FORM. CM WILL CONTINUE TO FOLLOW PATIENT WITH D/C NEEDS AND PLANS. PCP DR. IRVIN PHARMACY IS [facility] ON [address] ZHONG (DAUGHTER) [phone] Factory Superintendent: Bev Allan DCPIA - Discharge Planning Initial Assessment Updated by [id number]: Bev Allan on 03/21/18 7:47 am * Is the patient Alert and Oriented? Yes * How many steps to enter\\exit or inside your home? * PCP DR. IRVIN * Pharmacy [facility] [address] * Preadmission Environment Home with Family * ADLs Independent * Equipment Bedside Commode CPAP Nebulizer Ostomy Supplies Oxygen Shower Chair Walker * Other Equipment PORTABLE O2 * List name and contact numbers for known caregivers / representatives who currently or will assist patient after discharge: FARHEEN TURNER (DAUGHTER) [phone] * Verbal permission to speak to the caregivers and representatives has been obtained from the patient. Yes * Community resources currently utilized None * Additional services required to return to the preadmission environment? Yes * Can the patient safely return to the preadmission environment? Yes * Has this patient been hospitalized within the prior 30 days at any hospital? No Coverage Notice Reviewer: [id number] Petit Notice Issued Date-Time: 05/17/2018 15:00 Notice Type: IM Discharge Notice Notice Delivered To: Patient Relationship to Patient: Staffing Manager Name: Delivery Method: HAND - Hand Delivered Jennifer Days: Prior Verbal Notification: Recipient Understood Notice: Yes Recipient Signature: Med Rec Note Co-signed by Attending: Coverage Notice Comment: REFUSED SIGNATURE REPORTING SHE DID THIS ON THURSDAY OF LAST WEEK. Reviewer: CEDRIC Petit Notice Issued Date-Time: 05/14/2018 16:35 Notice Type: IM Discharge Notice Notice Delivered To: Patient Relationship to Patient: Staffing Manager Name: Delivery Method: HAND - Hand Delivered Jennifer Days: Prior Verbal Notification: Recipient Understood Notice: Yes Recipient Signature: Yes Med Rec Note Co-signed by Attending: Coverage Notice Comment: Reviewer: [id number] - Bev Allan Notice Issued Date-Time: 03/21/2018 7:34 Notice Type: IM Discharge Notice Notice Delivered To: Patient Relationship to Patient: Staffing Manager Name: Delivery Method: HAND - Hand Delivered Jennifer Days: Prior Verbal Notification: Recipient Understood Notice: Yes Recipient Signature: Yes Med Rec Note Co-signed by Attending: Coverage Notice Comment: Last DP export: 05/17/18 4:10 Patient Name: NINA ODELL Page 09026 at 1718 All edits/amendments must be made on the electronic document DICTATION DATE: 05/17/181716 FIRE PROTECTION ENGINEER: WIL 05/17/181716 RPT#: [id number] [place] DATE: STATUS: ADM IN [facility] [address] [place] [address] END OF REPORT
--- NOTE | ~2018-03-18 | MORECARE ---
CASE MANAGEMENT DISCHARGE SUMMARY PATIENT: NINA ODELL UNIT: [id number] ADM DATE: 03/18/18 AGE: 47 : 66 SEX: F ROOM/BED: D.2107 AUTHOR: CHRISTIANO,DOC PHYSICIAN: REFERRING PHYSICIAN: ANGEL CHEN MD DATE OF SERVICE: 05/14/18 Discharge Plan Patient Name: NINA ODELL Facility: [facility]:[place] : 1970 Planned Disposition: Home Anticipated Discharge Date: 03/23/18 Discharge Date: Expected LOS: 5 Initial Reviewer: [email or web address] Initial Review Date: 03/21/2018 Generated: 05/14/18 3:45 pm Comments DCP- Discharge Planning Updated by [email or web address]: Sobia Jensen on 05/14/18 1:[address] CM spoke with Kay at [facility] regarding status of rehab screening. Kay informed CM that patient is not a good candidate for IRF and if rehab is needed CM should pursue SNF. CM informed Kaleb Petit CM. DCP- Discharge Planning Updated by [email or web address]: Bev Allan on 03/21/18 7:[address] Patient Name: NINA ODELL Admission Status: ER Accout number: [id number] Admission Date: 03-18-2018 : 1970 Admission Diagnosis:UNSPECIFIED ABDOMINAL PAIN Attending: ANGEL CHEN Current LOS: 3 Anticipated DC Date: 03-23-2018 Planned Disposition: Home Primary Insurance: MEDICARE A & B Discharge Planning Comments: CM MET WITH PATIENT REGARDING D/C NEEDS AND PLANS. PATIENT STATED SHE LIVES WITH HER DAUGHTER (FARHEEN) AND SHE WILL DRIVE HER HOME AT DISCHARGE. PATIENT STATED THERE ARE NO STEPS OR STAIRS AT HER HOME. PATIENT STATED SHE IS INDEPENDENT WITH HER CARE AND HAS A SHOWER CHAIR, BS COMMODE, WALKER, CPAP, NEBULIZER, PORTABLE O2, AND OXYGEN (3L) AT HOME. PATIENTS PCP IS DR. IRVIN AND PHARMACY IS [facility] ON [address]. PATIENT REFUSED HOME HEALTH DUE TO HER INSURANCE CUTTING HER OSTOMY SUPPLIES OFF. CM ASKED IF SHE COULD GET HER OSTOMY SUPPLIES APPROVED AFTER DISCHARGED FROM HOME HEALTH SHE STATED NO AND I DO NOT WANT HOME HEALTH. PATIENT SIGNED THE IMM FORM. CM WILL CONTINUE TO FOLLOW PATIENT WITH D/C NEEDS AND PLANS. PCP DR. IRVIN PHARMACY IS [facility] ON [address] ZHONG (DAUGHTER) [phone] Telephone Worker: Bev Allan DCPIA - Discharge Planning Initial Assessment Updated by [email or web address]: Bev Allan on 03/21/18 7:47 am * Is the patient Alert and Oriented? Yes * How many steps to enter\exit or inside your home? * PCP DR. IRVIN * [facility] ON [address] * Preadmission Environment Home with Family * ADLs Independent * Equipment Bedside Commode CPAP Nebulizer Ostomy Supplies Oxygen Shower Chair Walker * Other Equipment PORTABLE O2 * List name and contact numbers for known caregivers / representatives who currently or will assist patient after discharge: FARHEEN TURNER (DAUGHTER) [phone] * Verbal permission to speak to the caregivers and representatives has been obtained from the patient. Yes * Community resources currently utilized None * Additional services required to return to the preadmission environment? Yes * Can the patient safely return to the preadmission environment? Yes * Has this patient been hospitalized within the prior 30 days at any hospital? No Coverage Notice Reviewer: [id number] - Bev Allan Notice Issued Date-Time: 03/21/2018 7:34 Notice Type: IM Discharge Notice Notice Delivered To: Patient Relationship to Patient: Structural Test Engineer Name: Delivery Method: HAND - Hand Delivered Jennifer Days: Prior Verbal Notification: Recipient Understood Notice: Yes Recipient Signature: Yes Med Rec Note Co-signed by Attending: Coverage Notice Comment: Last DP export: 03/21/18 7:57 a Patient Name: NINA ODELL Page [phone] at 1445 All edits/amendments must be made on the electronic document DICTATION DATE: 05/14/18 144 LIVE IN CAREGIVER: WIL 05/14/18 144 RPT#: [id number] IA DATE: STATUS: ADM IN [facility] [address] [place] [address] END OF REPORT
--- NOTE | ~2018-03-18 | OP ---
PATIENT NAME: NINA ODELL MEDICAL RECORD: [id number] :66 LOCATION:D.MS [id number] ADMISSION DATE:03/18/18 SURGEON: IFEANYI KERR MD DATE OF OPERATION: 04/08/2018 PREOPERATIVE DIAGNOSES: 1. Colostomy. 2. Small-bowel obstruction secondary to adhesions. 3. Parastomal hernia. 4. Interstitial lung disease. 5. Acute pancreatitis. POSTOPERATIVE DIAGNOSES: 1. Colostomy. 2. Small-bowel obstruction secondary to adhesions. 3. Parastomal hernia. 4. Interstitial lung disease. 5. Acute pancreatitis. PROCEDURES: 1. Hand-assisted laparoscopic colostomy takedown. 2. Laparoscopic lysis of adhesions. SURGEON: Ifeanyi Kerr MD ORIENTAL MEDICINE PRACTITIONER: Anjelica Cosby APRN REPORT OF OPERATION: The patient's abdomen was prepped and draped in sterile fashion. A skin incision was made in the midline in the lower abdomen. Electrocautery was used to dissect through subcutaneous tissues. We entered the abdominal cavity. There were some thin adhesions of the omentum to the anterior abdominal wall and these were taken down with blunt dissection. Eventually, we were able to free up the space in the pelvis and a GelPort was inserted with a 5-mm trocar within it. After we insufflated the abdomen, then a 5-mm trocar was placed in the right lateral abdomen. With this, we were able to investigate the abdominal cavity and a gentle lysis of adhesions was performed digitally. The patient's ostomy was visualized and there was no sign of any bowel in the parastomal hernia at this time. The patient did not have a whole lot of adhesions, but the ones he had were of the omentum to the anterior abdominal wall and there was a single adhesion in the pelvis from the small bowel to the rectal stump, which was causing a partial obstruction of the small bowel at the distal ileum. This adhesion was taken down and that released this small bowel tension. We then milked the small bowel back trying to get rid of some of the contents that were present. We eventually were able to remove a large amount of contents in the small bowel through the nasogastric tube. A total of about 1700 mL of intestinal contents were removed. At this point, we released the ostomy from the skin using electrocautery and took this down into the pelvis. We then transected the colon just proximal to the ostomy using electrocautery and placed a 2-0 Prolene around the end of it as a pursestring. A 29 EEA anvil was inserted and this piece of bowel was placed back towards the pelvis. We then inserted the multiple dilators through the rectal stump followed by the 29 EEA stapler. An end-to-end anastomosis was performed under direct visualization of the distal colon to the proximal rectum. We checked and saw that there were 2 complete donuts present in the stapler. We then checked the anastomosis under water by instilling air through the rectum and there was no sign of any leakage. OPERATIVE REPORT [id number] NINA ODELL The staple line was then oversewn with Lemberted 3-0 silks. There were a couple of deserosalizations on the proximal rectum, which were oversewn with 3-0 silks. We then inspected the abdomen and assured there was no sign of any bleeding or enteric contents and there was none. We irrigated out the abdomen one last time. We then freed up the tissue above the ostomy opening and reapproximated the fascia transversely using multiple interrupted 0 Prolenes. We then reinsufflated the abdomen and inspected one last time. We saw that the colon was lying in an anatomic position and was not twisted. The bowel appeared to be in a good anatomic position and there was no sign of any enteric contents or surgical bleeding. We irrigated out the abdomen one last time and assured there was no need for any further dissection. The bowel all appeared to be fairly freely mobile. At this point, the ports and insufflation were then removed. The midline fascia was closed with running #1 loop PDS times 2. The subcutaneous tissues were reapproximated with interrupted 3-0 Vicryl and the skin incisions were closed with shayne. The ostomy site was closed with a single pursestring 2-0 Vicryl and then packed with 4 x 4. COMPLICATIONS: None. CONDITION: Stable. ANESTHESIA: General endotracheal. BLOOD LOSS: 30 mL. TRANSINT:[id number] Voice Confirmation ID: [id number] DOCUMENT ID: [id number] IFEANYI KERR MD at 1009 CC: [id number] DICTATION DATE: 04/08/18 1356 GENERAL ASSEMBLER INSTALLER: 04/08/18 1415 ADM IN [facility] [address] [place] [address]
--- NOTE | ~2018-03-18 | CN ---
PATIENT NAME:NINA ODELL MEDICAL RECORD: [id number] : [birth year] LOCATION:D.MS Frank2223 ADMIT DATE: 03/18/18 ACCOUNT: [id number] CONSULTING PHYSICIAN: NAHEED PEDERSON MD REFERRING PHYSICIAN: ANGEL CHEN MD DATE OF CONSULTATION: 03/23/2018 CONSULT REQUESTING PHYSICIAN: Arun David MD REASON FOR CONSULTATION: Tdaip-rl-kvbbvwi hypoxic hypercapnic respiratory failure. HISTORY: Ms. Odell is a 47-year-old -[place]omin[place] female who was admitted on the 18 of March with acute pancreatitis. She was getting better, but since yesterday, she has worsening shortness of breath. There was leukocytosis, and this morning, she required 15 liters oxygen on Oxymizer and she was in respiratory distress. ABG was done and the pH was 7.2. She has cough. She has shortness of breath. Now, she is more awake and alert. She has chronic pain syndrome, most likely secondary to chronic pancreatitis. REVIEW OF THE SYSTEMS: As in history of present illness. PAST MEDICAL HISTORY: 1. Chronic hypoxic respiratory failure. 2. COPD. 3. Pulmonary fibrosis. 4. Mixed connective tissue disorder. 5. History of rheumatoid arthritis. 6. Gastroesophageal reflux disease. 7. Diverticulosis. 8. Chronic pancreatitis. PAST SURGICAL HISTORY: Status post colostomy for obstruction at [facility] in the past. ALLERGIES: SHE IS ALLERGIC TO LATEX. MEDICATIONS: The list on [employer] was reviewed. PERSONAL AND SOCIAL HISTORY: The patient is an ex-smoker. She is nondrinker. FAMILY HISTORY: Noncontributory. PHYSICAL EXAMINATION: GENERAL: Now, the patient is lying comfortably in bed. She is in mild respiratory distress. VITAL SIGNS: Blood pressure is 155/94, pulse is 114, respirations 22, temperature 98.2, and SpO2 is 83% on 15 liters Oxymizer. HEENT: Conjunctivae are pink. Sclerae are not icteric. NECK: Neck is supple. There is no JVD. CHEST: There are bilateral crackles. No wheezing. HEART: Rate and rhythm are regular. Normal sound. No murmur. ABDOMEN: Abdomen is soft. It is tender on deep palpation. No guarding. No rigidity. RECTAL: Deferred. CONSULT REPORT [id number] OLLISON,NINA EXTREMITIES: No cyanosis and no clubbing. There is 1+ pedal edema. LABORATORY DATA: CBC; the WBC is 18.2, hemoglobin 8.8, hematocrit 28.7, and the platelet count is 304. Chemistry; sodium is 140, potassium 4.8, BUN is 4, and creatinine is 0.6. ABG; the pH is 7.29, pCO2 is 63.5, the pO2 is 78, and bicarb is 31.1. CHEST RADIOGRAPH: There is mixed interstitial alveolar infiltrate throughout left lung and right upper lobe. There is probable left pleural effusion. IMPRESSION: 1. Lwscf-tt-gnqanpb hypoxic hypercapnic respiratory failure. 2. Bilateral pneumonia, most likely hospital-acquired pneumonia. 3. Possible acute lung injury. 4. Possible pulmonary edema. 5. Acute exacerbation of COPD. 6. Lqmya-wb-osffxpz pancreatitis. 7. Pulmonary fibrosis, most likely related to rheumatoid arthritis and mixed connective tissue disorder. 8. Leukocytosis secondary to pneumonia. 9. Anemia. RECOMMENDATION: 1. We will transfer the patient to the ICU. 2. BiPAP and Oxymizer as required. 3. Start methylprednisolone IV and Lasix IV. Cover for the hospital-acquired pneumonia with vancomycin IV, Zosyn IV, and Levaquin IV. 4. Decrease the pain medication to minimum. 5. Check ammonia level. 6. Followup labs and chest radiograph. 7. DVT prophylaxis. Dr. Costello is on board. I discussed with Dr. David. The critical care time is [address] David, thank you for involving me in the care of Ms. Odell. TRANSINT:[id number] Voice Confirmation ID: [id number] DOCUMENT ID: [id number] NAHEED PEDERSON MD at 1301 CC: [id number] DICTATION DATE: 03/23/18 1229 FILM MAKER: 03/23/18 1251 ADM IN [facility] [address] [place] [address]
[2018-03-18 22:15] LABS: APPEARANCE CLEAR (CLEAR); COLOR YELLOW (YELLOW); SPECIFIC GRAVITY 1.015 (1.005-1.020)
[2018-03-18 22:17] LABS: BILIRUBIN NEGATIVE (NEGATIVE); GLUCOSE NEGATIVE (NEGATIVE); KETONE NEGATIVE (NEGATIVE); NITRITE NEGATIVE (NEGATIVE); PROTEIN NEGATIVE (NEGATIVE); UROBILINOGEN NORMAL (NORMAL)
[2018-03-18 22:19] LABS: WHITE CELLS - URINE 0-5 /hpf (0-5)
[2018-03-18 22:20] LABS: BACTERIA FEW /hpf (NONE SEEN); EPITHELIAL CELLS 0-5 /hpf (0-5)
[2018-03-18 22:24] LABS: BASOPHILS 0.1 % (0-2); EOSINOPHILS 0.3 % (0-7); HEMATOCRIT 31.3 % (36.0-48.0); HEMOGLOBIN 9.9 g/dL (12-16); IMMATURE GRANULOCYTES 0.6 % (0-5); MCH 29.6 pg (26.0-34.0); MCHC 31.6 g/dL (31.0-37.0); MCV 93.7 fL (80.0-100.0); MEAN PLATELET VOLUME 9.1 fL (7.4-10.4); MONOCYTES 7.6 % (2-11); NEUTROPHILS 62.4 % (40-80); PLATELET COUNT 322 10x3/uL (130-400); RBC 3.34 10x6/uL (4.00-5.40); RDW 21.2 % (11.5-14.5); WBC 16.1 10x3/uL (4.8-10.8)
[2018-03-18 23:01] LABS: ALBUMIN 2.3 g/dL (3.4-5.0); ALKALINE PHOSPHATASE 152 U/L (46-116); ALT (SGPT) 23 U/L (10-68); BILIRUBIN - TOTAL 0.46 mg/dL (0.2-1.3); CALC OSMOLALITY 273 mosm/kg (275-300); CALCIUM 8.1 mg/dL (8.5-10.1); CARBON DIOXIDE 21.7 mmol/L (21.0-32.0); CHLORIDE - SERUM 102 mmol/L (98-107); CREATININE - SERUM 0.7 mg/dL (0.6-1.3); GLUCOSE 90 mg/dL (74-106); POTASSIUM - SERUM 5.1 mmol/L (3.5-5.1); PROTEIN - SERUM 6.9 g/dL (6.4-8.2); SODIUM 137 mmol/L (136-145); UREA NITROGEN 13 mg/dL (7-18); eGFR NON AFRICAN AMERICAN > 90 mL/min (90-120)
[2018-03-18 23:02] LABS: AMYLASE - SERUM 233 U/L (25-115); MAGNESIUM - SERUM 1.3 mg/dL (1.8-2.4); TRIGLYCERIDE 176 mg/dL (30-200)
[2018-03-18 23:13] LABS: LIPASE 2932 U/L (73-393)
[2018-03-19 01:02] VITALS: BP 173/99
[2018-03-19 02:25] VITALS: BP 173/99; BMI 27.3
[2018-03-19 05:02] VITALS: BP 184/84
[2018-03-19 08:54] VITALS: BP 164/93
[2018-03-19 12:57] VITALS: BMI 27.2
[2018-03-19 16:28] VITALS: BP 172/97
[2018-03-19 20:00] VITALS: BP 147/90
[2018-03-20] VITALS: BP 140/71
[2018-03-20 04:00] VITALS: BP 127/70
[2018-03-20 06:36] LABS: BASOPHILS 0 % (0-2); EOSINOPHILS 1.4 % (0-7); HEMOGLOBIN 8.7 g/dL (12-16); IMMATURE GRANULOCYTES 0.2 % (0-5); LYMPHOCYTES 18.4 % (15-50); MCH 30.3 pg (26.0-34.0); MCHC 32.2 g/dL (31.0-37.0); MCV 94.1 fL (80.0-100.0); MEAN PLATELET VOLUME 8.8 fL (7.4-10.4); MONOCYTES 6.7 % (2-11); NEUTROPHILS 73.3 % (40-80); PLATELET COUNT 276 10x3/uL (130-400); RBC 2.87 10x6/uL (4.00-5.40); RDW 21.7 % (11.5-14.5)
[2018-03-20 06:41] LABS: WBC 8.4 10x3/uL (4.8-10.8)
[2018-03-20 07:07] LABS: ALKALINE PHOSPHATASE 140 U/L (46-116); BILIRUBIN - TOTAL 0.75 mg/dL (0.2-1.3); CARBON DIOXIDE 26.2 mmol/L (21.0-32.0); CHLORIDE - SERUM 104 mmol/L (98-107); GLUCOSE 72 mg/dL (74-106); LIPASE 589 U/L (73-393); PROTEIN - SERUM 5.5 g/dL (6.4-8.2); SODIUM 139 mmol/L (136-145)
[2018-03-20 07:12] LABS: ALT (SGPT) 13 U/L (10-68); AMYLASE - SERUM 85 U/L (25-115); CALC OSMOLALITY 273 mosm/kg (275-300); CREATININE - SERUM 0.5 mg/dL (0.6-1.3); POTASSIUM - SERUM 3.2 mmol/L (3.5-5.1); UREA NITROGEN 5 mg/dL (7-18); eGFR NON AFRICAN AMERICAN > 90 mL/min (90-120)
[2018-03-20 08:33] VITALS: BP 90/62
[2018-03-20 12:31] VITALS: BP 110/62
[2018-03-20 16:11] VITALS: BP 120/70
[2018-03-20 20:00] VITALS: BP 147/84
[2018-03-21] VITALS: BP 129/86
[2018-03-21 04:00] VITALS: BP 132/77
[2018-03-21 06:51] LABS: BASOPHILS 0.1 % (0-2); EOSINOPHILS 1.6 % (0-7); HEMATOCRIT 26.9 % (36.0-48.0); HEMOGLOBIN 8.5 g/dL (12-16); IMMATURE GRANULOCYTES 0.2 % (0-5); LYMPHOCYTES 14.9 % (15-50); MCH 29.7 pg (26.0-34.0); MCHC 31.6 g/dL (31.0-37.0); MCV 94.1 fL (80.0-100.0); MEAN PLATELET VOLUME 8.9 fL (7.4-10.4); MONOCYTES 4.4 % (2-11); NEUTROPHILS 78.8 % (40-80); PLATELET COUNT 252 10x3/uL (130-400); RBC 2.86 10x6/uL (4.00-5.40); RDW 21.7 % (11.5-14.5); WBC 9.4 10x3/uL (4.8-10.8)
[2018-03-21 07:26] LABS: ALKALINE PHOSPHATASE 144 U/L (46-116); BILIRUBIN - TOTAL 0.81 mg/dL (0.2-1.3); CALCIUM 7.6 mg/dL (8.5-10.1); CHLORIDE - SERUM 102 mmol/L (98-107); CREATININE - SERUM 0.6 mg/dL (0.6-1.3); LIPASE 176 U/L (73-393); PROTEIN - SERUM 5.7 g/dL (6.4-8.2); SODIUM 138 mmol/L (136-145); eGFR NON AFRICAN AMERICAN > 90 mL/min (90-120)
[2018-03-21 07:29] LABS: ALT (SGPT) 37 U/L (10-68); AMYLASE - SERUM 40 U/L (25-115); CALC OSMOLALITY 273 mosm/kg (275-300); GLUCOSE 120 mg/dL (74-106); UREA NITROGEN 3 mg/dL (7-18)
[2018-03-21 08:28] VITALS: BP 133/73
[2018-03-21 11:31] VITALS: BP 138/95
[2018-03-21 16:29] VITALS: BP 150/79
[2018-03-21 21:07] VITALS: BP 122/78
[2018-03-22 04:23] LABS: BASOPHILS 0.1 % (0-2); EOSINOPHILS 0 % (0-7); HEMATOCRIT 25.5 % (36.0-48.0); IMMATURE GRANULOCYTES 0.2 % (0-5); LYMPHOCYTES 6.7 % (15-50); MCHC 31.4 g/dL (31.0-37.0); MCV 95.5 fL (80.0-100.0); MONOCYTES 3.4 % (2-11); NEUTROPHILS 89.6 % (40-80); PLATELET COUNT 233 10x3/uL (130-400); RBC 2.67 10x6/uL (4.00-5.40); RDW 22.2 % (11.5-14.5)
[2018-03-22 04:37] LABS: AMYLASE - SERUM 39 U/L (25-115); CALCIUM 7.6 mg/dL (8.5-10.1); CARBON DIOXIDE 21.2 mmol/L (21.0-32.0); CHLORIDE - SERUM 102 mmol/L (98-107); CREATININE - SERUM 0.7 mg/dL (0.6-1.3); LIPASE 139 U/L (73-393); SODIUM 140 mmol/L (136-145); eGFR NON AFRICAN AMERICAN > 90 mL/min (90-120)
[2018-03-22 04:45] LABS: CALC OSMOLALITY 283 mosm/kg (275-300); GLUCOSE 253 mg/dL (74-106); UREA NITROGEN 2 mg/dL (7-18)
[2018-03-22 05:09] VITALS: BP 134/80
[2018-03-22 08:45] VITALS: BP 118/74
[2018-03-22 13:21] VITALS: BP 151/82
[2018-03-22 16:41] VITALS: BP 152/86
[2018-03-22 21:01] VITALS: BP 161/90
[2018-03-23] VITALS (15 sets, daily range): BP systolic 114–174; BP diastolic 54–94
[2018-03-23 06:51] LABS: ALKALINE PHOSPHATASE 166 U/L (46-116); ALT (SGPT) 39 U/L (10-68); BILIRUBIN - TOTAL 0.37 mg/dL (0.2-1.3); CALCIUM 8.7 mg/dL (8.5-10.1); CARBON DIOXIDE 25.4 mmol/L (21.0-32.0); CHLORIDE - SERUM 102 mmol/L (98-107); CREATININE - SERUM 0.6 mg/dL (0.6-1.3); LIPASE 63 U/L (73-393); PROTEIN - SERUM 6.3 g/dL (6.4-8.2); SODIUM 140 mmol/L (136-145); eGFR NON AFRICAN AMERICAN > 90 mL/min (90-120)
[2018-03-23 06:52] LABS: CALC OSMOLALITY 278 mosm/kg (275-300); GLUCOSE 148 mg/dL (74-106); POTASSIUM - SERUM 4.8 mmol/L (3.5-5.1); UREA NITROGEN 4 mg/dL (7-18)
[2018-03-23 08:01] LABS: BASOPHILS 0 % (0-2); EOSINOPHILS 0 % (0-7); HEMATOCRIT 28.7 % (36.0-48.0); HEMOGLOBIN 8.8 g/dL (12-16); IMMATURE GRANULOCYTES 0.4 % (0-5); LYMPHOCYTES 8.2 % (15-50); MCH 29.8 pg (26.0-34.0); MCHC 30.7 g/dL (31.0-37.0); MCV 97.3 fL (80.0-100.0); MEAN PLATELET VOLUME 9.2 fL (7.4-10.4); MONOCYTES 7.4 % (2-11); RBC 2.95 10x6/uL (4.00-5.40)
[2018-03-23 08:02] LABS: PLATELET COUNT 304 10x3/uL (130-400); WBC 18.2 10x3/uL (4.8-10.8)
[2018-03-24] VITALS (24 sets, daily range): BP systolic 90–148; BP diastolic 52–98; Ht 170.2 cm; Wt 77.1 kg
[2018-03-24 04:56] LABS: BASOPHILS 0 % (0-2); EOSINOPHILS 0 % (0-7); HEMATOCRIT 25.5 % (36.0-48.0); IMMATURE GRANULOCYTES 0.1 % (0-5); LYMPHOCYTES 10.3 % (15-50); MCH 29.7 pg (26.0-34.0); MCHC 31.4 g/dL (31.0-37.0); MEAN PLATELET VOLUME 9.2 fL (7.4-10.4); MONOCYTES 6.3 % (2-11); NEUTROPHILS 83.3 % (40-80); PLATELET COUNT 292 10x3/uL (130-400); RBC 2.69 10x6/uL (4.00-5.40); RDW 21.6 % (11.5-14.5)
[2018-03-24 04:57] LABS: MCV 94.8 fL (80.0-100.0); WBC 8.3 10x3/uL (4.8-10.8)
[2018-03-24 05:25] LABS: ALBUMIN 1.6 g/dL (3.4-5.0); ALKALINE PHOSPHATASE 129 U/L (46-116); CALCIUM 8.2 mg/dL (8.5-10.1); CHLORIDE - SERUM 100 mmol/L (98-107); CREATININE - SERUM 0.6 mg/dL (0.6-1.3); GLUCOSE 138 mg/dL (74-106); PROTEIN - SERUM 5.6 g/dL (6.4-8.2); SODIUM 143 mmol/L (136-145); eGFR NON AFRICAN AMERICAN > 90 mL/min (90-120)
[2018-03-24 05:33] LABS: ALT (SGPT) 26 U/L (10-68); CALC OSMOLALITY 285 mosm/kg (275-300); LIPASE 38 U/L (73-393); POTASSIUM - SERUM 3.5 mmol/L (3.5-5.1); UREA NITROGEN 9 mg/dL (7-18)
[2018-03-25] VITALS (24 sets, daily range): BP systolic 95–139; BP diastolic 37–86
[2018-03-25 06:44] LABS: ALBUMIN 1.6 g/dL (3.4-5.0); BILIRUBIN - TOTAL 0.26 mg/dL (0.2-1.3); CALCIUM 7.8 mg/dL (8.5-10.1); MAGNESIUM - SERUM 1.5 mg/dL (1.8-2.4); PROTEIN - SERUM 4.9 g/dL (6.4-8.2)
[2018-03-25 06:46] LABS: CREATININE - SERUM 0.9 mg/dL (0.6-1.3)
[2018-03-26] VITALS (23 sets, daily range): BP systolic 101–142; BP diastolic 51–89
[2018-03-26 05:45] LABS: ALBUMIN 1.8 g/dL (3.4-5.0); BILIRUBIN - TOTAL 0.27 mg/dL (0.2-1.3); CALCIUM 8.1 mg/dL (8.5-10.1); MAGNESIUM - SERUM 1.6 mg/dL (1.8-2.4); POTASSIUM - SERUM 3.8 mmol/L (3.5-5.1); PROTEIN - SERUM 5.8 g/dL (6.4-8.2)
[2018-03-26 05:47] LABS: ANION GAP 6.8 mmol/L (8-16)
[2018-03-27] VITALS (23 sets, daily range): BP systolic 73–120; BP diastolic 40–96
[2018-03-27 06:03] LABS: ALBUMIN 1.9 g/dL (3.4-5.0); ALKALINE PHOSPHATASE 100 U/L (46-116); ALT (SGPT) 15 U/L (10-68); BILIRUBIN - TOTAL 0.23 mg/dL (0.2-1.3); CALCIUM 8.8 mg/dL (8.5-10.1); CARBON DIOXIDE 34.1 mmol/L (21.0-32.0); CHLORIDE - SERUM 99 mmol/L (98-107); CREATININE - SERUM 0.8 mg/dL (0.6-1.3); MAGNESIUM - SERUM 1.4 mg/dL (1.8-2.4); PROTEIN - SERUM 5.9 g/dL (6.4-8.2); SODIUM 140 mmol/L (136-145); UREA NITROGEN 21 mg/dL (7-18); eGFR NON AFRICAN AMERICAN 81 mL/min (90-120)
[2018-03-27 06:21] LABS: CALC OSMOLALITY 279 mosm/kg (275-300); GLUCOSE 63 mg/dL (74-106); POTASSIUM - SERUM 2.9 mmol/L (3.5-5.1)
[2018-03-27 19:53] LABS: ANION GAP 8.3 mmol/L (8-16); CALCIUM 8.8 mg/dL (8.5-10.1); CARBON DIOXIDE 33.4 mmol/L (21.0-32.0); PHOSPHOROUS 2.8 mg/dL (2.5-4.9)
[2018-03-27 20:19] LABS: POTASSIUM - SERUM 3.7 mmol/L (3.5-5.1)
[2018-03-27 20:26] LABS: BASOPHILS 0.1 % (0-2); EOSINOPHILS 0 % (0-7); HEMATOCRIT 27.3 % (36.0-48.0); HEMOGLOBIN 8.5 g/dL (12-16); IMMATURE GRANULOCYTES 0.8 % (0-5); LYMPHOCYTES 8.1 % (15-50); MCH 29.5 pg (26.0-34.0); MCHC 31.1 g/dL (31.0-37.0); MCV 94.8 fL (80.0-100.0); MEAN PLATELET VOLUME 9.7 fL (7.4-10.4); MONOCYTES 9.6 % (2-11); NEUTROPHILS 81.4 % (40-80); RBC 2.88 10x6/uL (4.00-5.40); RDW 21.1 % (11.5-14.5); WBC 15.5 10x3/uL (4.8-10.8)
[2018-03-27 20:27] LABS: PLATELET COUNT 495 10x3/uL (130-400)
[2018-03-28] VITALS (20 sets, daily range): BP systolic 75–129; BP diastolic 50–99
[2018-03-28 05:18] LABS: BASOPHILS 0 % (0-2); EOSINOPHILS 0 % (0-7); HEMATOCRIT 27.8 % (36.0-48.0); HEMOGLOBIN 8.7 g/dL (12-16); IMMATURE GRANULOCYTES 0.7 % (0-5); LYMPHOCYTES 5.5 % (15-50); MCH 29.4 pg (26.0-34.0); MCHC 31.3 g/dL (31.0-37.0); MCV 93.9 fL (80.0-100.0); MEAN PLATELET VOLUME 9.4 fL (7.4-10.4); MONOCYTES 9.1 % (2-11); NEUTROPHILS 84.7 % (40-80); PLATELET COUNT 461 10x3/uL (130-400); RBC 2.96 10x6/uL (4.00-5.40); RDW 21.1 % (11.5-14.5)
[2018-03-28 05:37] LABS: ANION GAP 10.2 mmol/L (8-16); BILIRUBIN - TOTAL 0.27 mg/dL (0.2-1.3); CALCIUM 8.6 mg/dL (8.5-10.1); CARBON DIOXIDE 30.8 mmol/L (21.0-32.0); MAGNESIUM - SERUM 1.9 mg/dL (1.8-2.4); PROTEIN - SERUM 5.7 g/dL (6.4-8.2)
[2018-03-29] VITALS (15 sets, daily range): BP systolic 72–114; BP diastolic 33–65
[2018-03-29 04:44] LABS: BASOPHILS 0 % (0-2); EOSINOPHILS 0 % (0-7); HEMATOCRIT 26.7 % (36.0-48.0); HEMOGLOBIN 8.5 g/dL (12-16); IMMATURE GRANULOCYTES 1.3 % (0-5); LYMPHOCYTES 3.7 % (15-50); MCH 29.4 pg (26.0-34.0); MCHC 31.8 g/dL (31.0-37.0); MCV 92.4 fL (80.0-100.0); MONOCYTES 9.5 % (2-11); NEUTROPHILS 85.5 % (40-80); PLATELET COUNT 468 10x3/uL (130-400); RBC 2.89 10x6/uL (4.00-5.40); RDW 21.1 % (11.5-14.5); WBC 25.2 10x3/uL (4.8-10.8)
[2018-03-29 04:59] LABS: ALBUMIN 2.1 g/dL (3.4-5.0); ANION GAP 9.9 mmol/L (8-16); BILIRUBIN - TOTAL 0.29 mg/dL (0.2-1.3); CALCIUM 8.6 mg/dL (8.5-10.1); CARBON DIOXIDE 33.5 mmol/L (21.0-32.0); CREATININE - SERUM 0.9 mg/dL (0.6-1.3); MAGNESIUM - SERUM 1.7 mg/dL (1.8-2.4); POTASSIUM - SERUM 3.4 mmol/L (3.5-5.1); PROTEIN - SERUM 5.3 g/dL (6.4-8.2)
[2018-03-30 04:25] VITALS: BP 103/58
[2018-03-30 04:59] LABS: HEMATOCRIT 25.4 % (36.0-48.0); HEMOGLOBIN 8.3 g/dL (12-16); MCH 29.9 pg (26.0-34.0); MCHC 32.7 g/dL (31.0-37.0); MCV 91.4 fL (80.0-100.0); MEAN PLATELET VOLUME 9.1 fL (7.4-10.4); PLATELET COUNT 522 10x3/uL (130-400); RBC 2.78 10x6/uL (4.00-5.40); RDW 21.2 % (11.5-14.5); WBC 23.8 10x3/uL (4.8-10.8)
[2018-03-30 05:19] LABS: LYMPHOCYTES 22 % (15-50); MONOCYTES 5 % (2-11); NEUTROPHILS 71 % (40-80); PLATELET ESTIMATE INCREASED
[2018-03-30 13:33] LABS: CALCIUM 8.5 mg/dL (8.5-10.1); CARBON DIOXIDE 32.6 mmol/L (21.0-32.0); CHLORIDE - SERUM 98 mmol/L (98-107); CREATININE - SERUM 0.8 mg/dL (0.6-1.3); SODIUM 136 mmol/L (136-145); eGFR NON AFRICAN AMERICAN 81 mL/min (90-120)
[2018-03-30 13:39] LABS: CALC OSMOLALITY 283 mosm/kg (275-300); GLUCOSE 256 mg/dL (74-106); POTASSIUM - SERUM 4.2 mmol/L (3.5-5.1); UREA NITROGEN 20 mg/dL (7-18)
[2018-03-30 19:27] VITALS: BP 130/60
[2018-03-31 04:00] VITALS: BP 95/55
[2018-03-31 05:40] LABS: BASOPHILS 0.1 % (0-2); EOSINOPHILS 0 % (0-7); HEMATOCRIT 26.5 % (36.0-48.0); HEMOGLOBIN 8.7 g/dL (12-16); IMMATURE GRANULOCYTES 3.4 % (0-5); LYMPHOCYTES 11.6 % (15-50); MCH 29.8 pg (26.0-34.0); MCHC 32.8 g/dL (31.0-37.0); MCV 90.8 fL (80.0-100.0); MEAN PLATELET VOLUME 9.1 fL (7.4-10.4); MONOCYTES 10.6 % (2-11); NEUTROPHILS 74.3 % (40-80); PLATELET COUNT 534 10x3/uL (130-400); RBC 2.92 10x6/uL (4.00-5.40); RDW 21.2 % (11.5-14.5); WBC 26.6 10x3/uL (4.8-10.8)
[2018-03-31 05:51] LABS: CALC OSMOLALITY 279 mosm/kg (275-300); CALCIUM 8.8 mg/dL (8.5-10.1); CARBON DIOXIDE 30.9 mmol/L (21.0-32.0); CHLORIDE - SERUM 98 mmol/L (98-107); CREATININE - SERUM 0.6 mg/dL (0.6-1.3); POTASSIUM - SERUM 4.2 mmol/L (3.5-5.1); SODIUM 136 mmol/L (136-145); UREA NITROGEN 25 mg/dL (7-18); eGFR NON AFRICAN AMERICAN > 90 mL/min (90-120)
[2018-03-31 05:59] LABS: GLUCOSE 177 mg/dL (74-106)
[2018-03-31 08:51] VITALS: BP 116/68
[2018-03-31 12:45] VITALS: BP 108/69
[2018-03-31 16:48] VITALS: BP 105/67
[2018-03-31 20:00] VITALS: BP 91/47
[2018-04-01 04:00] VITALS: BP 140/70
[2018-04-01 04:47] LABS: BASOPHILS 0.1 % (0-2); EOSINOPHILS 0 % (0-7); HEMATOCRIT 26.3 % (36.0-48.0); HEMOGLOBIN 8.4 g/dL (12-16); IMMATURE GRANULOCYTES 2.2 % (0-5); LYMPHOCYTES 6.5 % (15-50); MCHC 31.9 g/dL (31.0-37.0); MCV 90.7 fL (80.0-100.0); MEAN PLATELET VOLUME 9.5 fL (7.4-10.4); MONOCYTES 5.2 % (2-11); PLATELET COUNT 579 10x3/uL (130-400); RDW 21.1 % (11.5-14.5); WBC 23.1 10x3/uL (4.8-10.8)
[2018-04-01 05:12] LABS: CALCIUM 8.9 mg/dL (8.5-10.1); CARBON DIOXIDE 29.8 mmol/L (21.0-32.0); CHLORIDE - SERUM 97 mmol/L (98-107); CREATININE - SERUM 0.7 mg/dL (0.6-1.3); MAGNESIUM - SERUM 1.9 mg/dL (1.8-2.4); PHOSPHOROUS 3.9 mg/dL (2.5-4.9); SODIUM 131 mmol/L (136-145); UREA NITROGEN 23 mg/dL (7-18); eGFR NON AFRICAN AMERICAN > 90 mL/min (90-120)
[2018-04-01 05:26] LABS: CALC OSMOLALITY 282 mosm/kg (275-300); GLUCOSE 393 mg/dL (74-106); POTASSIUM - SERUM 5.4 mmol/L (3.5-5.1)
[2018-04-01 10:55] VITALS: BP 91/47
[2018-04-01 13:31] VITALS: BP 127/72
[2018-04-01 16:48] VITALS: BP 98/70
[2018-04-01 20:00] VITALS: BP 110/71
[2018-04-02 04:00] VITALS: BP 150/84
[2018-04-02 05:59] LABS: ANION GAP 9.5 mmol/L (8-16); CARBON DIOXIDE 32.2 mmol/L (21.0-32.0); POTASSIUM - SERUM 4.7 mmol/L (3.5-5.1)
[2018-04-02 06:28] LABS: BASOPHILS 0.1 % (0-2); EOSINOPHILS 0 % (0-7); HEMATOCRIT 28.3 % (36.0-48.0); HEMOGLOBIN 9.2 g/dL (12-16); IMMATURE GRANULOCYTES 2.1 % (0-5); MCH 29.6 pg (26.0-34.0); MCHC 32.5 g/dL (31.0-37.0); MEAN PLATELET VOLUME 9.6 fL (7.4-10.4); MONOCYTES 4.9 % (2-11); NEUTROPHILS 87.9 % (40-80); PLATELET COUNT 623 10x3/uL (130-400); RBC 3.11 10x6/uL (4.00-5.40); RDW 21.1 % (11.5-14.5); WBC 26.2 10x3/uL (4.8-10.8)
[2018-04-02 08:48] VITALS: BP 120/67
[2018-04-02 12:46] VITALS: BP 147/85
[2018-04-02 16:49] VITALS: BP 137/83
[2018-04-02 23:06] VITALS: BP 161/95
[2018-04-03 04:54] VITALS: BP 144/74
[2018-04-03 06:20] LABS: ALBUMIN 2.8 g/dL (3.4-5.0); ALKALINE PHOSPHATASE 95 U/L (46-116); ALT (SGPT) 15 U/L (10-68); AMYLASE - SERUM 69 U/L (25-115); BILIRUBIN - TOTAL 0.42 mg/dL (0.2-1.3); CALC OSMOLALITY 271 mosm/kg (275-300); CALCIUM 9.8 mg/dL (8.5-10.1); CARBON DIOXIDE 33.8 mmol/L (21.0-32.0); CHLORIDE - SERUM 90 mmol/L (98-107); CREATININE - SERUM 0.8 mg/dL (0.6-1.3); LIPASE 105 U/L (73-393); PHOSPHOROUS 5.2 mg/dL (2.5-4.9); POTASSIUM - SERUM 4.4 mmol/L (3.5-5.1); PROTEIN - SERUM 6.8 g/dL (6.4-8.2); SODIUM 130 mmol/L (136-145); UREA NITROGEN 23 mg/dL (7-18); eGFR NON AFRICAN AMERICAN 81 mL/min (90-120)
[2018-04-03 06:23] LABS: HEMATOCRIT 31.7 % (36.0-48.0); HEMOGLOBIN 10.6 g/dL (12-16); LYMPHOCYTES 4.9 % (15-50); MCH 30.6 pg (26.0-34.0); MCHC 33.4 g/dL (31.0-37.0); MCV 91.6 fL (80.0-100.0); MEAN PLATELET VOLUME 9.8 fL (7.4-10.4); NEUTROPHILS 86.2 % (40-80); PLATELET COUNT 662 10x3/uL (130-400); RBC 3.46 10x6/uL (4.00-5.40); RDW 21.8 % (11.5-14.5); WBC 34.7 10x3/uL (4.8-10.8)
[2018-04-03 06:41] LABS: GLUCOSE 232 mg/dL (74-106)
[2018-04-03 09:11] VITALS: BP 132/88
[2018-04-03 15:35] VITALS: BP 171/72
[2018-04-03 20:30] VITALS: BP 152/85
[2018-04-04 00:30] VITALS: BP 129/82
[2018-04-04 05:38] LABS: BASOPHILS 0.1 % (0-2); EOSINOPHILS 0.4 % (0-7); HEMATOCRIT 31.1 % (36.0-48.0); HEMOGLOBIN 9.9 g/dL (12-16); IMMATURE GRANULOCYTES 2.5 % (0-5); LYMPHOCYTES 8.3 % (15-50); MCH 29.4 pg (26.0-34.0); MCHC 31.8 g/dL (31.0-37.0); MCV 92.3 fL (80.0-100.0); MEAN PLATELET VOLUME 9.5 fL (7.4-10.4); MONOCYTES 9.2 % (2-11); NEUTROPHILS 79.5 % (40-80); PLATELET COUNT 595 10x3/uL (130-400); RBC 3.37 10x6/uL (4.00-5.40); RDW 21.1 % (11.5-14.5); WBC 31.1 10x3/uL (4.8-10.8)
[2018-04-04 06:02] LABS: ANION GAP 7.5 mmol/L (8-16); CALCIUM 9.1 mg/dL (8.5-10.1); CARBON DIOXIDE 36.7 mmol/L (21.0-32.0); POTASSIUM - SERUM 4.2 mmol/L (3.5-5.1)
[2018-04-04 06:13] VITALS: BP 119/80
[2018-04-04 08:48] VITALS: BP 104/65
[2018-04-04 13:55] VITALS: BP 103/70
[2018-04-04 21:14] VITALS: BP 130/72
[2018-04-05 05:09] VITALS: BP 145/99
[2018-04-05 05:40] LABS: BASOPHILS 0.1 % (0-2); EOSINOPHILS 0.9 % (0-7); HEMATOCRIT 29.3 % (36.0-48.0); HEMOGLOBIN 9.2 g/dL (12-16); LYMPHOCYTES 11.2 % (15-50); MCH 29.2 pg (26.0-34.0); MCHC 31.4 g/dL (31.0-37.0); MEAN PLATELET VOLUME 9.8 fL (7.4-10.4); MONOCYTES 10.3 % (2-11); NEUTROPHILS 75.5 % (40-80); PLATELET COUNT 576 10x3/uL (130-400); RBC 3.15 10x6/uL (4.00-5.40); RDW 20.9 % (11.5-14.5); WBC 20.4 10x3/uL (4.8-10.8)
[2018-04-05 08:17] VITALS: BP 139/69
[2018-04-05 09:30] LABS: ALBUMIN 2.3 g/dL (3.4-5.0); ALKALINE PHOSPHATASE 77 U/L (46-116); ALT (SGPT) 13 U/L (10-68); CALC OSMOLALITY 270 mosm/kg (275-300); CALCIUM 9.1 mg/dL (8.5-10.1); CARBON DIOXIDE 36.1 mmol/L (21.0-32.0); CHLORIDE - SERUM 92 mmol/L (98-107); GLUCOSE 154 mg/dL (74-106); POTASSIUM - SERUM 3.9 mmol/L (3.5-5.1); PROTEIN - SERUM 5.9 g/dL (6.4-8.2); SODIUM 132 mmol/L (136-145); UREA NITROGEN 21 mg/dL (7-18)
[2018-04-05 09:33] LABS: CREATININE - SERUM 0.7 mg/dL (0.6-1.3); eGFR NON AFRICAN AMERICAN > 90 mL/min (90-120)
[2018-04-05 13:33] VITALS: BP 114/69
[2018-04-05 20:00] VITALS: BP 105/64
[2018-04-06 04:00] VITALS: BP 143/70
[2018-04-06 05:20] LABS: BASOPHILS 0.1 % (0-2); HEMATOCRIT 28.3 % (36.0-48.0); HEMOGLOBIN 9.1 g/dL (12-16); IMMATURE GRANULOCYTES 1.4 % (0-5); LYMPHOCYTES 13.8 % (15-50); MCH 30.2 pg (26.0-34.0); MCHC 32.2 g/dL (31.0-37.0); MEAN PLATELET VOLUME 9.9 fL (7.4-10.4); MONOCYTES 9.2 % (2-11); NEUTROPHILS 74.5 % (40-80); PLATELET COUNT 536 10x3/uL (130-400); RBC 3.01 10x6/uL (4.00-5.40); WBC 15.5 10x3/uL (4.8-10.8)
[2018-04-06 05:43] LABS: ALBUMIN 2.3 g/dL (3.4-5.0); ALKALINE PHOSPHATASE 83 U/L (46-116); ALT (SGPT) 12 U/L (10-68); BILIRUBIN - TOTAL 0.62 mg/dL (0.2-1.3); CALCIUM 9.3 mg/dL (8.5-10.1); CARBON DIOXIDE 33.7 mmol/L (21.0-32.0); CHLORIDE - SERUM 95 mmol/L (98-107); PROTEIN - SERUM 6.1 g/dL (6.4-8.2); SODIUM 132 mmol/L (136-145)
[2018-04-06 05:44] LABS: CALC OSMOLALITY 264 mosm/kg (275-300); CREATININE - SERUM 0.5 mg/dL (0.6-1.3); GLUCOSE 74 mg/dL (74-106); UREA NITROGEN 15 mg/dL (7-18); eGFR NON AFRICAN AMERICAN > 90 mL/min (90-120)
[2018-04-06 08:28] VITALS: BP 113/71
[2018-04-06 11:30] VITALS: BP 138/74
[2018-04-06 15:30] VITALS: BP 154/67
[2018-04-06 20:00] VITALS: BP 109/64
[2018-04-07] VITALS: BP 128/65
[2018-04-07 04:00] VITALS: BP 152/80
[2018-04-07 04:27] LABS: BASOPHILS 0.1 % (0-2); EOSINOPHILS 1.1 % (0-7); HEMATOCRIT 25.7 % (36.0-48.0); HEMOGLOBIN 8.1 g/dL (12-16); IMMATURE GRANULOCYTES 1.9 % (0-5); MCH 29.8 pg (26.0-34.0); MCHC 31.5 g/dL (31.0-37.0); MCV 94.5 fL (80.0-100.0); MEAN PLATELET VOLUME 9.9 fL (7.4-10.4); MONOCYTES 9.1 % (2-11); NEUTROPHILS 72.8 % (40-80); PLATELET COUNT 488 10x3/uL (130-400); RBC 2.72 10x6/uL (4.00-5.40); RDW 19.8 % (11.5-14.5); WBC 15.4 10x3/uL (4.8-10.8)
[2018-04-07 04:47] LABS: ALBUMIN 2.1 g/dL (3.4-5.0); ALKALINE PHOSPHATASE 79 U/L (46-116); ALT (SGPT) 14 U/L (10-68); BILIRUBIN - TOTAL 0.47 mg/dL (0.2-1.3); CALCIUM 8.8 mg/dL (8.5-10.1); CARBON DIOXIDE 31.4 mmol/L (21.0-32.0); CHLORIDE - SERUM 95 mmol/L (98-107); CREATININE - SERUM 0.6 mg/dL (0.6-1.3); PROTEIN - SERUM 5.9 g/dL (6.4-8.2); SODIUM 128 mmol/L (136-145); eGFR NON AFRICAN AMERICAN > 90 mL/min (90-120)
[2018-04-07 05:03] LABS: CALC OSMOLALITY 256 mosm/kg (275-300); GLUCOSE 123 mg/dL (74-106); POTASSIUM - SERUM 4.9 mmol/L (3.5-5.1); UREA NITROGEN 10 mg/dL (7-18)
[2018-04-07 08:18] VITALS: BP 142/74
[2018-04-07 21:34] VITALS: BP 139/88
[2018-04-08 04:20] LABS: BASOPHILS 0.1 % (0-2); EOSINOPHILS 0.7 % (0-7); HEMATOCRIT 25.9 % (36.0-48.0); HEMOGLOBIN 8.2 g/dL (12-16); LYMPHOCYTES 16.4 % (15-50); MCH 29.3 pg (26.0-34.0); MCHC 31.7 g/dL (31.0-37.0); MEAN PLATELET VOLUME 9.5 fL (7.4-10.4); MONOCYTES 7.9 % (2-11); NEUTROPHILS 71.9 % (40-80); PLATELET COUNT 463 10x3/uL (130-400); RDW 19.3 % (11.5-14.5); WBC 18.5 10x3/uL (4.8-10.8)
[2018-04-08 04:21] LABS: MCV 92.5 fL (80.0-100.0)
[2018-04-08 04:36] LABS: ALBUMIN 2.4 g/dL (3.4-5.0); ALKALINE PHOSPHATASE 76 U/L (46-116); ALT (SGPT) 15 U/L (10-68); BILIRUBIN - TOTAL 0.31 mg/dL (0.2-1.3); CHLORIDE - SERUM 94 mmol/L (98-107); CREATININE - SERUM 0.6 mg/dL (0.6-1.3); GLUCOSE 116 mg/dL (74-106); PROTEIN - SERUM 6.3 g/dL (6.4-8.2); SODIUM 131 mmol/L (136-145); eGFR NON AFRICAN AMERICAN > 90 mL/min (90-120)
[2018-04-08 04:55] LABS: CALC OSMOLALITY 261 mosm/kg (275-300); POTASSIUM - SERUM 4.1 mmol/L (3.5-5.1); UREA NITROGEN 7 mg/dL (7-18)
[2018-04-08 06:18] VITALS: BP 144/80
[2018-04-08 08:09] VITALS: BP 138/83
[2018-04-08 15:35] VITALS: BP 95/57
[2018-04-08 16:39] VITALS: BP 74/50
[2018-04-08 21:45] VITALS: BP 88/55
[2018-04-09 05:09] VITALS: BP 91/52
[2018-04-09 05:24] LABS: BASOPHILS 0.3 % (0-2); EOSINOPHILS 0.7 % (0-7); HEMATOCRIT 27.7 % (36.0-48.0); HEMOGLOBIN 8.8 g/dL (12-16); IMMATURE GRANULOCYTES 8.5 % (0-5); LYMPHOCYTES 8.2 % (15-50); MCH 29.9 pg (26.0-34.0); MCHC 31.8 g/dL (31.0-37.0); MCV 94.2 fL (80.0-100.0); MEAN PLATELET VOLUME 10.3 fL (7.4-10.4); MONOCYTES 4.5 % (2-11); NEUTROPHILS 77.8 % (40-80); PLATELET COUNT 487 10x3/uL (130-400); RBC 2.94 10x6/uL (4.00-5.40); RDW 19.6 % (11.5-14.5); WBC 37.5 10x3/uL (4.8-10.8)
[2018-04-09 06:08] LABS: BILIRUBIN - TOTAL 0.5 mg/dL (0.2-1.3); CALCIUM 8.3 mg/dL (8.5-10.1); CARBON DIOXIDE 22.7 mmol/L (21.0-32.0); PROTEIN - SERUM 5.4 g/dL (6.4-8.2)
[2018-04-09 06:10] LABS: ANION GAP 14.1 mmol/L (8-16); CREATININE - SERUM 1.7 mg/dL (0.6-1.3); POTASSIUM - SERUM 4.8 mmol/L (3.5-5.1)
[2018-04-09 08:13] VITALS: BP 100/58
[2018-04-09 12:00] VITALS: BP 117/65
[2018-04-09 19:49] VITALS: BP 117/62
[2018-04-10] VITALS (15 sets, daily range): BP systolic 118–167; BP diastolic 65–103
[2018-04-10 04:36] LABS: BASOPHILS 0.1 % (0-2); EOSINOPHILS 0.1 % (0-7); IMMATURE GRANULOCYTES 3.2 % (0-5); LYMPHOCYTES 4.7 % (15-50); MCH 29.9 pg (26.0-34.0); MCHC 32.1 g/dL (31.0-37.0); MCV 93.2 fL (80.0-100.0); MEAN PLATELET VOLUME 9.7 fL (7.4-10.4); MONOCYTES 4.3 % (2-11); NEUTROPHILS 87.6 % (40-80); PLATELET COUNT 384 10x3/uL (130-400); RBC 2.51 10x6/uL (4.00-5.40); RDW 19.2 % (11.5-14.5); WBC 28.6 10x3/uL (4.8-10.8)
[2018-04-10 04:37] LABS: HEMATOCRIT 24.1 % (36.0-48.0); HEMOGLOBIN 7.9 g/dL (12-16)
[2018-04-10 04:53] LABS: ALBUMIN 1.8 g/dL (3.4-5.0); ALKALINE PHOSPHATASE 80 U/L (46-116); ALT (SGPT) 19 U/L (10-68); BILIRUBIN - TOTAL 0.28 mg/dL (0.2-1.3); CALCIUM 8.8 mg/dL (8.5-10.1); CARBON DIOXIDE 23.5 mmol/L (21.0-32.0); CHLORIDE - SERUM 100 mmol/L (98-107); POTASSIUM - SERUM 4.3 mmol/L (3.5-5.1); PROTEIN - SERUM 5.4 g/dL (6.4-8.2); SODIUM 133 mmol/L (136-145)
[2018-04-10 04:54] LABS: CALC OSMOLALITY 264 mosm/kg (275-300); CREATININE - SERUM 0.7 mg/dL (0.6-1.3); GLUCOSE 95 mg/dL (74-106); UREA NITROGEN 10 mg/dL (7-18); eGFR NON AFRICAN AMERICAN > 90 mL/min (90-120)
[2018-04-11] VITALS (24 sets, daily range): BP systolic 107–169; BP diastolic 79–112
[2018-04-11 05:12] LABS: BASOPHILS 0.1 % (0-2); EOSINOPHILS 0 % (0-7); HEMATOCRIT 23.6 % (36.0-48.0); LYMPHOCYTES 3.9 % (15-50); MCH 29.6 pg (26.0-34.0); MCHC 31.8 g/dL (31.0-37.0); MCV 93.3 fL (80.0-100.0); MONOCYTES 2.9 % (2-11); NEUTROPHILS 91.1 % (40-80); PLATELET COUNT 358 10x3/uL (130-400); RBC 2.53 10x6/uL (4.00-5.40); RDW 18.8 % (11.5-14.5)
[2018-04-11 05:13] LABS: WBC 16.8 10x3/uL (4.8-10.8)
[2018-04-11 05:14] LABS: HEMOGLOBIN 7.5 g/dL (12-16)
[2018-04-11 05:27] LABS: CALC OSMOLALITY 267 mosm/kg (275-300); CALCIUM 8.7 mg/dL (8.5-10.1); CARBON DIOXIDE 28.2 mmol/L (21.0-32.0); CHLORIDE - SERUM 98 mmol/L (98-107); CREATININE - SERUM 0.6 mg/dL (0.6-1.3); MAGNESIUM - SERUM 1.3 mg/dL (1.8-2.4); POTASSIUM - SERUM 4.2 mmol/L (3.5-5.1); SODIUM 132 mmol/L (136-145); UREA NITROGEN 10 mg/dL (7-18); eGFR NON AFRICAN AMERICAN > 90 mL/min (90-120)
[2018-04-11 05:29] LABS: GLUCOSE 172 mg/dL (74-106)
[2018-04-12] VITALS (24 sets, daily range): BP systolic 112–174; BP diastolic 81–115
[2018-04-12 05:08] LABS: CALC OSMOLALITY 267 mosm/kg (275-300); CALCIUM 9.2 mg/dL (8.5-10.1); CHLORIDE - SERUM 94 mmol/L (98-107); CREATININE - SERUM 0.5 mg/dL (0.6-1.3); GLUCOSE 168 mg/dL (74-106); SODIUM 132 mmol/L (136-145); UREA NITROGEN 10 mg/dL (7-18); eGFR NON AFRICAN AMERICAN > 90 mL/min (90-120)
[2018-04-12 05:22] LABS: CARBON DIOXIDE 37.3 mmol/L (21.0-32.0); MAGNESIUM - SERUM 1.7 mg/dL (1.8-2.4)
[2018-04-13] VITALS (21 sets, daily range): BP systolic 147–188; BP diastolic 87–124
[2018-04-13 04:55] LABS: CALC OSMOLALITY 276 mosm/kg (275-300); CALCIUM 9.1 mg/dL (8.5-10.1); CARBON DIOXIDE 37.6 mmol/L (21.0-32.0); CHLORIDE - SERUM 96 mmol/L (98-107); CREATININE - SERUM 0.6 mg/dL (0.6-1.3); GLUCOSE 167 mg/dL (74-106); MAGNESIUM - SERUM 1.7 mg/dL (1.8-2.4); PHOSPHOROUS 2.8 mg/dL (2.5-4.9); POTASSIUM - SERUM 3.9 mmol/L (3.5-5.1); SODIUM 136 mmol/L (136-145); eGFR NON AFRICAN AMERICAN > 90 mL/min (90-120)
[2018-04-13 04:56] LABS: UREA NITROGEN 16 mg/dL (7-18)
[2018-04-14] VITALS (24 sets, daily range): BP systolic 144–174; BP diastolic 90–108
[2018-04-14 06:17] LABS: BASOPHILS 0.1 % (0-2); EOSINOPHILS 0 % (0-7); HEMATOCRIT 32.1 % (36.0-48.0); HEMOGLOBIN 10.4 g/dL (12-16); IMMATURE GRANULOCYTES 1.3 % (0-5); LYMPHOCYTES 8.1 % (15-50); MCH 29.7 pg (26.0-34.0); MCHC 32.4 g/dL (31.0-37.0); MCV 91.7 fL (80.0-100.0); MEAN PLATELET VOLUME 9.2 fL (7.4-10.4); NEUTROPHILS 82.5 % (40-80); RDW 17.6 % (11.5-14.5); WBC 14.2 10x3/uL (4.8-10.8)
[2018-04-14 06:25] LABS: PLATELET COUNT 252 10x3/uL (130-400)
[2018-04-14 06:38] LABS: CALC OSMOLALITY 275 mosm/kg (275-300); CALCIUM 8.9 mg/dL (8.5-10.1); CARBON DIOXIDE 35.5 mmol/L (21.0-32.0); CHLORIDE - SERUM 96 mmol/L (98-107); CREATININE - SERUM 0.5 mg/dL (0.6-1.3); GLUCOSE 176 mg/dL (74-106); MAGNESIUM - SERUM 1.9 mg/dL (1.8-2.4); POTASSIUM - SERUM 3.8 mmol/L (3.5-5.1); SODIUM 135 mmol/L (136-145); UREA NITROGEN 19 mg/dL (7-18); eGFR NON AFRICAN AMERICAN > 90 mL/min (90-120)
[2018-04-15] VITALS (15 sets, daily range): BP systolic 132–186; BP diastolic 89–115
[2018-04-15 04:31] LABS: BASOPHILS 0.1 % (0-2); EOSINOPHILS 0 % (0-7); HEMATOCRIT 34.3 % (36.0-48.0); IMMATURE GRANULOCYTES 1.5 % (0-5); LYMPHOCYTES 6.2 % (15-50); MCH 29.7 pg (26.0-34.0); MCHC 32.1 g/dL (31.0-37.0); MCV 92.7 fL (80.0-100.0); MEAN PLATELET VOLUME 9.4 fL (7.4-10.4); MONOCYTES 5.8 % (2-11); NEUTROPHILS 86.4 % (40-80); PLATELET COUNT 276 10x3/uL (130-400); RDW 17.3 % (11.5-14.5)
[2018-04-15 04:46] LABS: CALC OSMOLALITY 279 mosm/kg (275-300); CALCIUM 9.2 mg/dL (8.5-10.1); CARBON DIOXIDE 35.1 mmol/L (21.0-32.0); CHLORIDE - SERUM 97 mmol/L (98-107); CREATININE - SERUM 0.6 mg/dL (0.6-1.3); GLUCOSE 188 mg/dL (74-106); MAGNESIUM - SERUM 1.8 mg/dL (1.8-2.4); POTASSIUM - SERUM 3.8 mmol/L (3.5-5.1); SODIUM 137 mmol/L (136-145); UREA NITROGEN 15 mg/dL (7-18); eGFR NON AFRICAN AMERICAN > 90 mL/min (90-120)
[2018-04-16 03:00] VITALS: BP 167/96
[2018-04-16 04:52] LABS: BASOPHILS 0.1 % (0-2); EOSINOPHILS 0.1 % (0-7); HEMATOCRIT 29.3 % (36.0-48.0); HEMOGLOBIN 9.5 g/dL (12-16); IMMATURE GRANULOCYTES 1.7 % (0-5); LYMPHOCYTES 5.6 % (15-50); MCHC 32.4 g/dL (31.0-37.0); MCV 92.4 fL (80.0-100.0); MONOCYTES 5.8 % (2-11); NEUTROPHILS 86.7 % (40-80); RBC 3.17 10x6/uL (4.00-5.40); RDW 17.3 % (11.5-14.5); WBC 17.4 10x3/uL (4.8-10.8)
[2018-04-16 04:53] LABS: PLATELET COUNT 196 10x3/uL (130-400)
[2018-04-16 05:05] LABS: ALBUMIN 2.1 g/dL (3.4-5.0); ALKALINE PHOSPHATASE 90 U/L (46-116); ALT (SGPT) 17 U/L (10-68); AMYLASE - SERUM 42 U/L (25-115); BILIRUBIN - TOTAL 0.31 mg/dL (0.2-1.3); CALC OSMOLALITY 278 mosm/kg (275-300); CALCIUM 8.9 mg/dL (8.5-10.1); CARBON DIOXIDE 37.2 mmol/L (21.0-32.0); CHLORIDE - SERUM 97 mmol/L (98-107); CREATININE - SERUM 0.5 mg/dL (0.6-1.3); GLUCOSE 202 mg/dL (74-106); LIPASE 50 U/L (73-393); MAGNESIUM - SERUM 1.6 mg/dL (1.8-2.4); PHOSPHOROUS 2.1 mg/dL (2.5-4.9); POTASSIUM - SERUM 3.7 mmol/L (3.5-5.1); PROTEIN - SERUM 5.2 g/dL (6.4-8.2); SODIUM 137 mmol/L (136-145); eGFR NON AFRICAN AMERICAN > 90 mL/min (90-120)
[2018-04-16 05:09] LABS: UREA NITROGEN 11 mg/dL (7-18)
[2018-04-16 09:01] VITALS: BP 174/78
[2018-04-16 12:23] VITALS: BP 169/94
[2018-04-16 20:00] VITALS: BP 155/78
[2018-04-17] VITALS: BP 147/83
[2018-04-17 05:13] LABS: BASOPHILS 0.1 % (0-2); EOSINOPHILS 0 % (0-7); HEMATOCRIT 31.5 % (36.0-48.0); HEMOGLOBIN 10.1 g/dL (12-16); IMMATURE GRANULOCYTES 1.4 % (0-5); LYMPHOCYTES 5.7 % (15-50); MCHC 32.1 g/dL (31.0-37.0); MCV 93.5 fL (80.0-100.0); MEAN PLATELET VOLUME 9.7 fL (7.4-10.4); MONOCYTES 4.7 % (2-11); NEUTROPHILS 88.1 % (40-80); PLATELET COUNT 266 10x3/uL (130-400); RBC 3.37 10x6/uL (4.00-5.40); RDW 17.5 % (11.5-14.5); WBC 15.6 10x3/uL (4.8-10.8)
[2018-04-17 05:23] LABS: ALBUMIN 2.2 g/dL (3.4-5.0); ALKALINE PHOSPHATASE 95 U/L (46-116); ALT (SGPT) 15 U/L (10-68); BILIRUBIN - TOTAL 0.32 mg/dL (0.2-1.3); CALC OSMOLALITY 288 mosm/kg (275-300); CALCIUM 8.9 mg/dL (8.5-10.1); CARBON DIOXIDE 37.6 mmol/L (21.0-32.0); CHLORIDE - SERUM 99 mmol/L (98-107); CREATININE - SERUM 0.7 mg/dL (0.6-1.3); GLUCOSE 248 mg/dL (74-106); PHOSPHOROUS 2.7 mg/dL (2.5-4.9); POTASSIUM - SERUM 3.2 mmol/L (3.5-5.1); PROTEIN - SERUM 5.2 g/dL (6.4-8.2); SODIUM 141 mmol/L (136-145); UREA NITROGEN 13 mg/dL (7-18); eGFR NON AFRICAN AMERICAN > 90 mL/min (90-120)
[2018-04-17 12:33] VITALS: BP 174/74
[2018-04-17 17:34] VITALS: BP 157/84
[2018-04-17 19:50] VITALS: BP 161/84
[2018-04-18] VITALS: BP 167/93
[2018-04-18 04:00] VITALS: BP 181/90
[2018-04-18 05:34] LABS: BASOPHILS 0.1 % (0-2); EOSINOPHILS 0 % (0-7); HEMATOCRIT 31.4 % (36.0-48.0); HEMOGLOBIN 9.9 g/dL (12-16); IMMATURE GRANULOCYTES 1.7 % (0-5); LYMPHOCYTES 6.2 % (15-50); MCH 29.6 pg (26.0-34.0); MCHC 31.5 g/dL (31.0-37.0); MCV 93.7 fL (80.0-100.0); MEAN PLATELET VOLUME 9.7 fL (7.4-10.4); MONOCYTES 6.1 % (2-11); NEUTROPHILS 85.9 % (40-80); PLATELET COUNT 268 10x3/uL (130-400); RBC 3.35 10x6/uL (4.00-5.40); RDW 17.6 % (11.5-14.5)
[2018-04-18 06:08] LABS: ALBUMIN 2.2 g/dL (3.4-5.0); ALKALINE PHOSPHATASE 100 U/L (46-116); ALT (SGPT) 16 U/L (10-68); CALC OSMOLALITY 292 mosm/kg (275-300); CALCIUM 8.8 mg/dL (8.5-10.1); CARBON DIOXIDE 38.2 mmol/L (21.0-32.0); CHLORIDE - SERUM 97 mmol/L (98-107); CREATININE - SERUM 0.8 mg/dL (0.6-1.3); MAGNESIUM - SERUM 1.6 mg/dL (1.8-2.4); PHOSPHOROUS 2.8 mg/dL (2.5-4.9); POTASSIUM - SERUM 3.3 mmol/L (3.5-5.1); PROTEIN - SERUM 5.2 g/dL (6.4-8.2); SODIUM 141 mmol/L (136-145); UREA NITROGEN 14 mg/dL (7-18); eGFR NON AFRICAN AMERICAN 81 mL/min (90-120)
[2018-04-18 06:12] LABS: GLUCOSE 302 mg/dL (74-106)
[2018-04-18 08:27] VITALS: BP 165/123
[2018-04-18 08:50] VITALS: BP 173/83
[2018-04-18 12:18] VITALS: BP 176/89
[2018-04-18 20:00] VITALS: BP 144/71
[2018-04-19 04:00] VITALS: BP 171/82
[2018-04-19 05:52] LABS: BASOPHILS 0.1 % (0-2); EOSINOPHILS 0 % (0-7); HEMATOCRIT 32.2 % (36.0-48.0); HEMOGLOBIN 10.1 g/dL (12-16); MCH 29.7 pg (26.0-34.0); MCHC 31.4 g/dL (31.0-37.0); MCV 94.7 fL (80.0-100.0); MEAN PLATELET VOLUME 9.8 fL (7.4-10.4); MONOCYTES 7.6 % (2-11); NEUTROPHILS 85.3 % (40-80); PLATELET COUNT 304 10x3/uL (130-400); RDW 17.5 % (11.5-14.5); WBC 18.7 10x3/uL (4.8-10.8)
[2018-04-19 06:16] LABS: ALBUMIN 2.3 g/dL (3.4-5.0); ALKALINE PHOSPHATASE 108 U/L (46-116); ALT (SGPT) 19 U/L (10-68); BILIRUBIN - TOTAL 0.35 mg/dL (0.2-1.3); CALCIUM 8.9 mg/dL (8.5-10.1); CHLORIDE - SERUM 98 mmol/L (98-107); CREATININE - SERUM 0.7 mg/dL (0.6-1.3); MAGNESIUM - SERUM 1.6 mg/dL (1.8-2.4); PHOSPHOROUS 2.6 mg/dL (2.5-4.9); POTASSIUM - SERUM 3.7 mmol/L (3.5-5.1); PROTEIN - SERUM 5.6 g/dL (6.4-8.2); SODIUM 139 mmol/L (136-145); UREA NITROGEN 17 mg/dL (7-18); eGFR NON AFRICAN AMERICAN > 90 mL/min (90-120)
[2018-04-19 06:35] LABS: CALC OSMOLALITY 281 mosm/kg (275-300); GLUCOSE 129 mg/dL (74-106)
[2018-04-19 06:37] LABS: CARBON DIOXIDE 43.4 mmol/L (21.0-32.0)
[2018-04-19 08:03] VITALS: BP 152/83
[2018-04-19 13:05] VITALS: BP 164/100
[2018-04-19 16:25] VITALS: BP 174/85
[2018-04-19 20:18] VITALS: BP 180/91
[2018-04-20 04:11] VITALS: BP 167/91
[2018-04-20 04:57] LABS: ALBUMIN 2.3 g/dL (3.4-5.0); ALKALINE PHOSPHATASE 114 U/L (46-116); BILIRUBIN - TOTAL 0.41 mg/dL (0.2-1.3); CALC OSMOLALITY 279 mosm/kg (275-300); CALCIUM 8.8 mg/dL (8.5-10.1); CHLORIDE - SERUM 93 mmol/L (98-107); CREATININE - SERUM 0.6 mg/dL (0.6-1.3); GLUCOSE 157 mg/dL (74-106); MAGNESIUM - SERUM 1.5 mg/dL (1.8-2.4); POTASSIUM - SERUM 3.8 mmol/L (3.5-5.1); PROTEIN - SERUM 5.5 g/dL (6.4-8.2); SODIUM 138 mmol/L (136-145); UREA NITROGEN 14 mg/dL (7-18); eGFR NON AFRICAN AMERICAN > 90 mL/min (90-120)
[2018-04-20 05:17] LABS: PHOSPHOROUS 3.4 mg/dL (2.5-4.9)
[2018-04-20 05:20] LABS: ALT (SGPT) 24 U/L (10-68); CARBON DIOXIDE 46.1 mmol/L (21.0-32.0)
[2018-04-20 05:27] LABS: HEMATOCRIT 32.4 % (36.0-48.0); HEMOGLOBIN 10.2 g/dL (12-16); MCH 29.7 pg (26.0-34.0); MCHC 31.5 g/dL (31.0-37.0); MCV 94.5 fL (80.0-100.0); MEAN PLATELET VOLUME 9.8 fL (7.4-10.4); PLATELET COUNT 304 10x3/uL (130-400); RBC 3.43 10x6/uL (4.00-5.40); RDW 17.3 % (11.5-14.5); WBC 20.2 10x3/uL (4.8-10.8)
[2018-04-20 06:40] LABS: ANISOCYTOSIS OCC; HYPOCHROMASIA OCC; LYMPHOCYTES 6 % (15-50); MONOCYTES 6 % (2-11); NEUTROPHILS 86 % (40-80); PLATELET ESTIMATE NORMAL
[2018-04-20 08:33] VITALS: BP 172/77
[2018-04-20 11:55] VITALS: BP 156/84
[2018-04-20 16:41] VITALS: BP 148/72
[2018-04-20 20:16] VITALS: BP 176/90
[2018-04-21 03:31] VITALS: BP 161/86
[2018-04-21 04:22] LABS: BASOPHILS 0.1 % (0-2); EOSINOPHILS 0 % (0-7); HEMATOCRIT 31.6 % (36.0-48.0); HEMOGLOBIN 10.1 g/dL (12-16); IMMATURE GRANULOCYTES 2.2 % (0-5); LYMPHOCYTES 5.1 % (15-50); MCH 30.1 pg (26.0-34.0); MCV 94.3 fL (80.0-100.0); MEAN PLATELET VOLUME 9.6 fL (7.4-10.4); MONOCYTES 6.2 % (2-11); NEUTROPHILS 86.4 % (40-80); PLATELET COUNT 310 10x3/uL (130-400); RBC 3.35 10x6/uL (4.00-5.40); RDW 17.4 % (11.5-14.5); WBC 19.8 10x3/uL (4.8-10.8)
[2018-04-21 04:47] LABS: ALBUMIN 2.4 g/dL (3.4-5.0); ALKALINE PHOSPHATASE 107 U/L (46-116); ALT (SGPT) 26 U/L (10-68); CALCIUM 8.8 mg/dL (8.5-10.1); CHLORIDE - SERUM 94 mmol/L (98-107); CREATININE - SERUM 0.6 mg/dL (0.6-1.3); POTASSIUM - SERUM 3.3 mmol/L (3.5-5.1); PROTEIN - SERUM 5.3 g/dL (6.4-8.2); SODIUM 139 mmol/L (136-145); UREA NITROGEN 13 mg/dL (7-18); eGFR NON AFRICAN AMERICAN > 90 mL/min (90-120)
[2018-04-21 04:49] LABS: CALC OSMOLALITY 277 mosm/kg (275-300); CARBON DIOXIDE 43.3 mmol/L (21.0-32.0); GLUCOSE 94 mg/dL (74-106)
[2018-04-21 08:42] VITALS: BP 168/92
[2018-04-21 13:03] VITALS: BP 181/82
[2018-04-21 15:45] VITALS: BP 126/88
[2018-04-21 21:24] VITALS: BP 151/74
[2018-04-22 04:52] LABS: ALBUMIN 2.3 g/dL (3.4-5.0); ANION GAP 8.7 mmol/L (8-16); BILIRUBIN - TOTAL 0.44 mg/dL (0.2-1.3); CALCIUM 8.3 mg/dL (8.5-10.1); POTASSIUM - SERUM 3.7 mmol/L (3.5-5.1); PROTEIN - SERUM 5.2 g/dL (6.4-8.2)
[2018-04-22 04:57] LABS: CREATININE - SERUM 0.9 mg/dL (0.6-1.3)
[2018-04-22 05:09] LABS: BASOPHILS 0.1 % (0-2); EOSINOPHILS 0 % (0-7); HEMATOCRIT 31.6 % (36.0-48.0); HEMOGLOBIN 9.9 g/dL (12-16); IMMATURE GRANULOCYTES 2.2 % (0-5); LYMPHOCYTES 6.2 % (15-50); MCHC 31.3 g/dL (31.0-37.0); MCV 95.8 fL (80.0-100.0); MONOCYTES 2.4 % (2-11); NEUTROPHILS 89.1 % (40-80); PLATELET COUNT 334 10x3/uL (130-400); WBC 22.1 10x3/uL (4.8-10.8)
[2018-04-22 05:19] VITALS: BP 164/95
[2018-04-22 12:49] VITALS: BP 148/82
[2018-04-23 05:01] VITALS: BP 154/84
[2018-04-23 06:37] LABS: ALBUMIN 2.2 g/dL (3.4-5.0); ALKALINE PHOSPHATASE 100 U/L (46-116); ALT (SGPT) 23 U/L (10-68); BILIRUBIN - TOTAL 0.34 mg/dL (0.2-1.3); CALC OSMOLALITY 295 mosm/kg (275-300); CALCIUM 8.6 mg/dL (8.5-10.1); CHLORIDE - SERUM 95 mmol/L (98-107); CREATININE - SERUM 0.8 mg/dL (0.6-1.3); GLUCOSE 379 mg/dL (74-106); POTASSIUM - SERUM 3.4 mmol/L (3.5-5.1); SODIUM 139 mmol/L (136-145); UREA NITROGEN 18 mg/dL (7-18); eGFR NON AFRICAN AMERICAN 81 mL/min (90-120)
[2018-04-23 06:38] LABS: CARBON DIOXIDE 40.6 mmol/L (21.0-32.0)
[2018-04-23 07:07] LABS: BASOPHILS 0.1 % (0-2); EOSINOPHILS 0 % (0-7); HEMATOCRIT 30.8 % (36.0-48.0); HEMOGLOBIN 9.7 g/dL (12-16); LYMPHOCYTES 8.6 % (15-50); MCH 30.3 pg (26.0-34.0); MCHC 31.5 g/dL (31.0-37.0); MCV 96.3 fL (80.0-100.0); MEAN PLATELET VOLUME 10.1 fL (7.4-10.4); MONOCYTES 1.1 % (2-11); NEUTROPHILS 88.2 % (40-80); PLATELET COUNT 348 10x3/uL (130-400); RDW 17.9 % (11.5-14.5); WBC 22.1 10x3/uL (4.8-10.8)
[2018-04-23 08:43] VITALS: BP 144/85
[2018-04-23 12:30] VITALS: BP 150/86
[2018-04-23 16:52] VITALS: BP 152/80
[2018-04-23 20:00] VITALS: BP 159/61
[2018-04-24 04:00] VITALS: BP 157/91
[2018-04-24 05:14] LABS: ALBUMIN 2.4 g/dL (3.4-5.0); ALKALINE PHOSPHATASE 101 U/L (46-116); ALT (SGPT) 25 U/L (10-68); CARBON DIOXIDE 39.4 mmol/L (21.0-32.0); CHLORIDE - SERUM 97 mmol/L (98-107); CREATININE - SERUM 0.6 mg/dL (0.6-1.3); PROTEIN - SERUM 5.5 g/dL (6.4-8.2); SODIUM 141 mmol/L (136-145); UREA NITROGEN 21 mg/dL (7-18); eGFR NON AFRICAN AMERICAN > 90 mL/min (90-120)
[2018-04-24 05:15] LABS: CALC OSMOLALITY 282 mosm/kg (275-300); GLUCOSE 75 mg/dL (74-106); POTASSIUM - SERUM 4.1 mmol/L (3.5-5.1)
[2018-04-24 06:32] LABS: BASOPHILS 0.1 % (0-2); EOSINOPHILS 0 % (0-7); HEMATOCRIT 32.6 % (36.0-48.0); HEMOGLOBIN 10.1 g/dL (12-16); LYMPHOCYTES 3.6 % (15-50); MCH 29.9 pg (26.0-34.0); MCV 96.4 fL (80.0-100.0); MEAN PLATELET VOLUME 10.1 fL (7.4-10.4); MONOCYTES 5.7 % (2-11); NEUTROPHILS 87.6 % (40-80); PLATELET COUNT 336 10x3/uL (130-400); RBC 3.38 10x6/uL (4.00-5.40); RDW 18.2 % (11.5-14.5); WBC 24.3 10x3/uL (4.8-10.8)
[2018-04-24 09:37] VITALS: BP 129/71
[2018-04-24 19:51] VITALS: BP 154/71
[2018-04-25 04:00] VITALS: BP 148/77
[2018-04-25 05:25] LABS: BASOPHILS 0 % (0-2); EOSINOPHILS 0 % (0-7); HEMATOCRIT 30.1 % (36.0-48.0); HEMOGLOBIN 9.5 g/dL (12-16); IMMATURE GRANULOCYTES 1.8 % (0-5); LYMPHOCYTES 2.9 % (15-50); MCH 30.3 pg (26.0-34.0); MCHC 31.6 g/dL (31.0-37.0); MCV 95.9 fL (80.0-100.0); MEAN PLATELET VOLUME 9.8 fL (7.4-10.4); MONOCYTES 4.9 % (2-11); NEUTROPHILS 90.4 % (40-80); PLATELET COUNT 299 10x3/uL (130-400); RBC 3.14 10x6/uL (4.00-5.40); RDW 17.9 % (11.5-14.5); WBC 23.3 10x3/uL (4.8-10.8)
[2018-04-25 05:45] LABS: ALBUMIN 2.2 g/dL (3.4-5.0); ALKALINE PHOSPHATASE 93 U/L (46-116); ALT (SGPT) 23 U/L (10-68); BILIRUBIN - TOTAL 0.38 mg/dL (0.2-1.3); CALCIUM 8.6 mg/dL (8.5-10.1); CARBON DIOXIDE 37.9 mmol/L (21.0-32.0); CHLORIDE - SERUM 93 mmol/L (98-107); POTASSIUM - SERUM 4.2 mmol/L (3.5-5.1); SODIUM 137 mmol/L (136-145); UREA NITROGEN 20 mg/dL (7-18); eGFR NON AFRICAN AMERICAN 81 mL/min (90-120)
[2018-04-25 05:46] LABS: CALC OSMOLALITY 293 mosm/kg (275-300); CREATININE - SERUM 0.8 mg/dL (0.6-1.3); GLUCOSE 396 mg/dL (74-106)
[2018-04-25 09:22] VITALS: BP 133/90
[2018-04-25 15:23] VITALS: BP 144/75
[2018-04-25 19:56] VITALS: BP 138/77
[2018-04-26 04:00] VITALS: BP 154/77
[2018-04-26 04:42] LABS: BASOPHILS 0.1 % (0-2); EOSINOPHILS 0 % (0-7); HEMATOCRIT 30.3 % (36.0-48.0); HEMOGLOBIN 9.5 g/dL (12-16); IMMATURE GRANULOCYTES 1.9 % (0-5); LYMPHOCYTES 3.6 % (15-50); MCH 29.7 pg (26.0-34.0); MCHC 31.4 g/dL (31.0-37.0); MCV 94.7 fL (80.0-100.0); MEAN PLATELET VOLUME 9.8 fL (7.4-10.4); MONOCYTES 4.7 % (2-11); NEUTROPHILS 89.7 % (40-80); PLATELET COUNT 289 10x3/uL (130-400); RDW 17.7 % (11.5-14.5); WBC 19.9 10x3/uL (4.8-10.8)
[2018-04-26 05:04] LABS: ALBUMIN 2.2 g/dL (3.4-5.0); ALKALINE PHOSPHATASE 93 U/L (46-116); ALT (SGPT) 26 U/L (10-68); BILIRUBIN - TOTAL 0.37 mg/dL (0.2-1.3); CALC OSMOLALITY 290 mosm/kg (275-300); CALCIUM 8.5 mg/dL (8.5-10.1); CARBON DIOXIDE 37.4 mmol/L (21.0-32.0); CHLORIDE - SERUM 95 mmol/L (98-107); CREATININE - SERUM 0.7 mg/dL (0.6-1.3); POTASSIUM - SERUM 4.3 mmol/L (3.5-5.1); SODIUM 138 mmol/L (136-145); UREA NITROGEN 19 mg/dL (7-18); eGFR NON AFRICAN AMERICAN > 90 mL/min (90-120)
[2018-04-26 05:05] LABS: GLUCOSE 338 mg/dL (74-106)
[2018-04-26 07:43] VITALS: BP 139/78
[2018-04-26 12:00] VITALS: BP 122/77
[2018-04-26 15:36] VITALS: BP 116/72
[2018-04-26 21:17] VITALS: BP 119/70
[2018-04-27 04:46] LABS: BASOPHILS 0.1 % (0-2); EOSINOPHILS 0 % (0-7); HEMATOCRIT 27.1 % (36.0-48.0); HEMOGLOBIN 8.6 g/dL (12-16); IMMATURE GRANULOCYTES 2.7 % (0-5); LYMPHOCYTES 4.2 % (15-50); MCH 30.1 pg (26.0-34.0); MCHC 31.7 g/dL (31.0-37.0); MCV 94.8 fL (80.0-100.0); MEAN PLATELET VOLUME 10.3 fL (7.4-10.4); MONOCYTES 4.1 % (2-11); NEUTROPHILS 88.9 % (40-80); PLATELET COUNT 245 10x3/uL (130-400); RBC 2.86 10x6/uL (4.00-5.40); RDW 17.8 % (11.5-14.5); WBC 18.6 10x3/uL (4.8-10.8)
[2018-04-27 05:04] VITALS: BP 101/68
[2018-04-27 05:12] LABS: ALBUMIN 1.9 g/dL (3.4-5.0); ALKALINE PHOSPHATASE 81 U/L (46-116); ALT (SGPT) 25 U/L (10-68); BILIRUBIN - TOTAL 0.26 mg/dL (0.2-1.3); CALCIUM 7.8 mg/dL (8.5-10.1); CARBON DIOXIDE 30.8 mmol/L (21.0-32.0); CHLORIDE - SERUM 96 mmol/L (98-107); CREATININE - SERUM 0.8 mg/dL (0.6-1.3); PROTEIN - SERUM 4.3 g/dL (6.4-8.2); SODIUM 135 mmol/L (136-145); UREA NITROGEN 19 mg/dL (7-18); eGFR NON AFRICAN AMERICAN 81 mL/min (90-120)
[2018-04-27 05:19] LABS: CALC OSMOLALITY 288 mosm/kg (275-300); GLUCOSE 404 mg/dL (74-106); POTASSIUM - SERUM 3.2 mmol/L (3.5-5.1)
[2018-04-27 08:18] VITALS: BP 124/76
[2018-04-27 12:18] VITALS: BP 133/61
[2018-04-27 17:49] VITALS: BP 117/76
[2018-04-27 21:21] VITALS: BP 113/73
[2018-04-28 05:10] VITALS: BP 125/81
[2018-04-28 06:15] LABS: BASOPHILS 0.2 % (0-2); EOSINOPHILS 0.1 % (0-7); HEMATOCRIT 28.5 % (36.0-48.0); HEMOGLOBIN 9.3 g/dL (12-16); IMMATURE GRANULOCYTES 6.2 % (0-5); LYMPHOCYTES 13.5 % (15-50); MCH 30.4 pg (26.0-34.0); MCHC 32.6 g/dL (31.0-37.0); MCV 93.1 fL (80.0-100.0); MEAN PLATELET VOLUME 9.7 fL (7.4-10.4); MONOCYTES 5.6 % (2-11); NEUTROPHILS 74.4 % (40-80); PLATELET COUNT 214 10x3/uL (130-400); RBC 3.06 10x6/uL (4.00-5.40); RDW 17.6 % (11.5-14.5); WBC 23.8 10x3/uL (4.8-10.8)
[2018-04-28 06:43] LABS: ALBUMIN 2.1 g/dL (3.4-5.0); ALKALINE PHOSPHATASE 84 U/L (46-116); ALT (SGPT) 27 U/L (10-68); BILIRUBIN - TOTAL 0.28 mg/dL (0.2-1.3); CALCIUM 8.3 mg/dL (8.5-10.1); CARBON DIOXIDE 33.5 mmol/L (21.0-32.0); CHLORIDE - SERUM 97 mmol/L (98-107); CREATININE - SERUM 0.7 mg/dL (0.6-1.3); PROTEIN - SERUM 4.7 g/dL (6.4-8.2); SODIUM 135 mmol/L (136-145); UREA NITROGEN 17 mg/dL (7-18); eGFR NON AFRICAN AMERICAN > 90 mL/min (90-120)
[2018-04-28 07:24] LABS: CALC OSMOLALITY 268 mosm/kg (275-300); GLUCOSE 44 mg/dL (74-106); POTASSIUM - SERUM 4.7 mmol/L (3.5-5.1)
[2018-04-28 09:01] VITALS: BP 102/60
[2018-04-28 12:05] VITALS: BP 99/63
[2018-04-28 20:49] VITALS: BP 134/80
[2018-04-29 03:19] VITALS: BP 123/60
[2018-04-29 06:32] LABS: BASOPHILS 0.2 % (0-2); EOSINOPHILS 0.2 % (0-7); HEMATOCRIT 29.1 % (36.0-48.0); HEMOGLOBIN 9.2 g/dL (12-16); IMMATURE GRANULOCYTES 5.8 % (0-5); LYMPHOCYTES 8.3 % (15-50); MCH 29.8 pg (26.0-34.0); MCHC 31.6 g/dL (31.0-37.0); MCV 94.2 fL (80.0-100.0); MEAN PLATELET VOLUME 10.4 fL (7.4-10.4); MONOCYTES 4.7 % (2-11); NEUTROPHILS 80.8 % (40-80); PLATELET COUNT 176 10x3/uL (130-400); RBC 3.09 10x6/uL (4.00-5.40); RDW 17.8 % (11.5-14.5)
[2018-04-29 06:35] LABS: WBC 17.5 10x3/uL (4.8-10.8)
[2018-04-29 06:56] LABS: ALKALINE PHOSPHATASE 90 U/L (46-116); ALT (SGPT) 27 U/L (10-68); BILIRUBIN - TOTAL 0.26 mg/dL (0.2-1.3); CALCIUM 8.2 mg/dL (8.5-10.1); CARBON DIOXIDE 29.1 mmol/L (21.0-32.0); CHLORIDE - SERUM 95 mmol/L (98-107); CREATININE - SERUM 0.8 mg/dL (0.6-1.3); POTASSIUM - SERUM 4.9 mmol/L (3.5-5.1); PROTEIN - SERUM 4.8 g/dL (6.4-8.2); SODIUM 132 mmol/L (136-145); eGFR NON AFRICAN AMERICAN 81 mL/min (90-120)
[2018-04-29 07:00] LABS: CALC OSMOLALITY 280 mosm/kg (275-300); GLUCOSE 392 mg/dL (74-106); UREA NITROGEN 12 mg/dL (7-18)
[2018-04-29 08:49] VITALS: BP 126/84
[2018-04-29 17:36] VITALS: BP 120/70
[2018-04-29 21:05] VITALS: BP 125/72
[2018-04-30 04:35] VITALS: BP 154/80
[2018-04-30 05:06] LABS: BASOPHILS 0.2 % (0-2); EOSINOPHILS 0.5 % (0-7); HEMATOCRIT 29.8 % (36.0-48.0); HEMOGLOBIN 9.4 g/dL (12-16); IMMATURE GRANULOCYTES 6.9 % (0-5); LYMPHOCYTES 14.1 % (15-50); MCHC 31.5 g/dL (31.0-37.0); MCV 95.2 fL (80.0-100.0); MEAN PLATELET VOLUME 10.1 fL (7.4-10.4); MONOCYTES 3.9 % (2-11); NEUTROPHILS 74.4 % (40-80); PLATELET COUNT 151 10x3/uL (130-400); RBC 3.13 10x6/uL (4.00-5.40); RDW 18.1 % (11.5-14.5); WBC 15.5 10x3/uL (4.8-10.8)
[2018-04-30 06:00] LABS: ANION GAP 9.8 mmol/L (8-16); BILIRUBIN - TOTAL 0.26 mg/dL (0.2-1.3); CALCIUM 8.4 mg/dL (8.5-10.1); CARBON DIOXIDE 32.2 mmol/L (21.0-32.0); CREATININE - SERUM 0.9 mg/dL (0.6-1.3)
[2018-04-30 08:21] VITALS: BP 111/67
[2018-04-30 12:36] VITALS: BP 109/68
[2018-04-30 16:30] VITALS: BP 136/68
[2018-04-30 20:24] VITALS: BP 132/78
[2018-05-01 04:57] LABS: BASOPHILS 0.2 % (0-2); EOSINOPHILS 0.5 % (0-7); HEMATOCRIT 26.7 % (36.0-48.0); HEMOGLOBIN 8.4 g/dL (12-16); IMMATURE GRANULOCYTES 5.2 % (0-5); LYMPHOCYTES 13.7 % (15-50); MCHC 31.5 g/dL (31.0-37.0); MCV 95.4 fL (80.0-100.0); MEAN PLATELET VOLUME 9.5 fL (7.4-10.4); MONOCYTES 4.7 % (2-11); NEUTROPHILS 75.7 % (40-80); PLATELET COUNT 135 10x3/uL (130-400); RDW 18.1 % (11.5-14.5); WBC 12.2 10x3/uL (4.8-10.8)
[2018-05-01 05:02] VITALS: BP 154/84
[2018-05-01 05:19] LABS: ALKALINE PHOSPHATASE 89 U/L (46-116); ALT (SGPT) 29 U/L (10-68); CALC OSMOLALITY 275 mosm/kg (275-300); CHLORIDE - SERUM 99 mmol/L (98-107); CREATININE - SERUM 0.6 mg/dL (0.6-1.3); GLUCOSE 158 mg/dL (74-106); POTASSIUM - SERUM 5.1 mmol/L (3.5-5.1); SODIUM 136 mmol/L (136-145); UREA NITROGEN 15 mg/dL (7-18); eGFR NON AFRICAN AMERICAN > 90 mL/min (90-120)
[2018-05-01 10:03] VITALS: BP 96/49
[2018-05-01 12:53] VITALS: BP 114/66
[2018-05-01 17:17] VITALS: BP 125/78
[2018-05-01 21:08] VITALS: BP 146/70
[2018-05-02 05:16] VITALS: BP 133/78
[2018-05-02 06:08] LABS: BASOPHILS 0.2 % (0-2); EOSINOPHILS 0.6 % (0-7); HEMATOCRIT 28.3 % (36.0-48.0); HEMOGLOBIN 8.8 g/dL (12-16); IMMATURE GRANULOCYTES 5.7 % (0-5); LYMPHOCYTES 17.8 % (15-50); MCH 29.9 pg (26.0-34.0); MCHC 31.1 g/dL (31.0-37.0); MCV 96.3 fL (80.0-100.0); MEAN PLATELET VOLUME 9.5 fL (7.4-10.4); MONOCYTES 5.5 % (2-11); NEUTROPHILS 70.2 % (40-80); PLATELET COUNT 144 10x3/uL (130-400); RBC 2.94 10x6/uL (4.00-5.40); RDW 18.1 % (11.5-14.5); WBC 14.1 10x3/uL (4.8-10.8)
[2018-05-02 06:32] LABS: CALCIUM 9.5 mg/dL (8.5-10.1); CARBON DIOXIDE 35.4 mmol/L (21.0-32.0); CHLORIDE - SERUM 100 mmol/L (98-107); POTASSIUM - SERUM 5.2 mmol/L (3.5-5.1); SODIUM 137 mmol/L (136-145); UREA NITROGEN 16 mg/dL (7-18); eGFR NON AFRICAN AMERICAN 81 mL/min (90-120)
[2018-05-02 06:43] LABS: CALC OSMOLALITY 271 mosm/kg (275-300); CREATININE - SERUM 0.8 mg/dL (0.6-1.3); GLUCOSE 50 mg/dL (74-106)
[2018-05-02 09:38] VITALS: BP 148/72
[2018-05-02 13:20] VITALS: BP 126/75
[2018-05-02 17:39] VITALS: BP 105/62
[2018-05-02 20:00] VITALS: BP 102/53
[2018-05-03] VITALS (9 sets, daily range): BP systolic 98–158; BP diastolic 50–94
[2018-05-03 05:49] LABS: BASOPHILS 0.3 % (0-2); EOSINOPHILS 0.9 % (0-7); HEMATOCRIT 26.9 % (36.0-48.0); HEMOGLOBIN 8.3 g/dL (12-16); IMMATURE GRANULOCYTES 6.9 % (0-5); LYMPHOCYTES 20.4 % (15-50); MCHC 30.9 g/dL (31.0-37.0); MCV 97.1 fL (80.0-100.0); MEAN PLATELET VOLUME 10.6 fL (7.4-10.4); MONOCYTES 6.2 % (2-11); NEUTROPHILS 65.3 % (40-80); PLATELET COUNT 136 10x3/uL (130-400); RBC 2.77 10x6/uL (4.00-5.40); RDW 18.1 % (11.5-14.5)
[2018-05-03 05:50] LABS: WBC 10.2 10x3/uL (4.8-10.8)
[2018-05-03 06:19] LABS: ANION GAP 7.5 mmol/L (8-16); CARBON DIOXIDE 34.9 mmol/L (21.0-32.0); CREATININE - SERUM 0.9 mg/dL (0.6-1.3); MAGNESIUM - SERUM 1.7 mg/dL (1.8-2.4); POTASSIUM - SERUM 5.4 mmol/L (3.5-5.1)
[2018-05-04 05:43] VITALS: BP 117/66
[2018-05-04 06:01] LABS: CALC OSMOLALITY 274 mosm/kg (275-300); CALCIUM 9.1 mg/dL (8.5-10.1); CARBON DIOXIDE 35.4 mmol/L (21.0-32.0); CHLORIDE - SERUM 98 mmol/L (98-107); CREATININE - SERUM 0.8 mg/dL (0.6-1.3); POTASSIUM - SERUM 5.7 mmol/L (3.5-5.1); SODIUM 135 mmol/L (136-145); UREA NITROGEN 19 mg/dL (7-18); eGFR NON AFRICAN AMERICAN 81 mL/min (90-120)
[2018-05-04 06:06] LABS: GLUCOSE 158 mg/dL (74-106)
[2018-05-04 06:59] LABS: BASOPHILS 0.3 % (0-2); EOSINOPHILS 0.4 % (0-7); HEMATOCRIT 26.9 % (36.0-48.0); HEMOGLOBIN 8.2 g/dL (12-16); IMMATURE GRANULOCYTES 7.9 % (0-5); MCH 29.6 pg (26.0-34.0); MCHC 30.5 g/dL (31.0-37.0); MCV 97.1 fL (80.0-100.0); MEAN PLATELET VOLUME 10.4 fL (7.4-10.4); MONOCYTES 5.2 % (2-11); NEUTROPHILS 73.2 % (40-80); PLATELET COUNT 152 10x3/uL (130-400); RBC 2.77 10x6/uL (4.00-5.40)
[2018-05-04 09:57] VITALS: BP 121/68
[2018-05-04 13:58] VITALS: BP 118/69
[2018-05-04 17:01] VITALS: BP 96/62
[2018-05-04 20:49] VITALS: BP 128/72
[2018-05-05 00:35] VITALS: BP 124/69
[2018-05-05 04:42] VITALS: BP 154/74
[2018-05-05 05:38] LABS: BASOPHILS 0.2 % (0-2); EOSINOPHILS 0.4 % (0-7); HEMATOCRIT 25.9 % (36.0-48.0); HEMOGLOBIN 8.1 g/dL (12-16); IMMATURE GRANULOCYTES 8.7 % (0-5); LYMPHOCYTES 16.7 % (15-50); MCH 29.9 pg (26.0-34.0); MCHC 31.3 g/dL (31.0-37.0); MCV 95.6 fL (80.0-100.0); MEAN PLATELET VOLUME 10.2 fL (7.4-10.4); PLATELET COUNT 149 10x3/uL (130-400); RBC 2.71 10x6/uL (4.00-5.40); RDW 17.7 % (11.5-14.5); WBC 13.4 10x3/uL (4.8-10.8)
[2018-05-05 05:43] LABS: CALCIUM 9.3 mg/dL (8.5-10.1); CARBON DIOXIDE 35.3 mmol/L (21.0-32.0); CHLORIDE - SERUM 95 mmol/L (98-107); CREATININE - SERUM 0.7 mg/dL (0.6-1.3); SODIUM 134 mmol/L (136-145); eGFR NON AFRICAN AMERICAN > 90 mL/min (90-120)
[2018-05-05 05:47] LABS: CALC OSMOLALITY 268 mosm/kg (275-300); GLUCOSE 104 mg/dL (74-106); UREA NITROGEN 14 mg/dL (7-18)
[2018-05-05 08:46] VITALS: BP 107/59
[2018-05-05 12:30] VITALS: BP 94/57
[2018-05-05 15:45] VITALS: BP 82/56
[2018-05-05 22:16] VITALS: BP 108/44
[2018-05-06] VITALS (8 sets, daily range): BP systolic 88–132; BP diastolic 62–82
[2018-05-06 04:58] LABS: BASOPHILS 0.3 % (0-2); EOSINOPHILS 0.2 % (0-7); HEMATOCRIT 26.4 % (36.0-48.0); HEMOGLOBIN 8.4 g/dL (12-16); IMMATURE GRANULOCYTES 8.4 % (0-5); LYMPHOCYTES 15.1 % (15-50); MCH 30.2 pg (26.0-34.0); MCHC 31.8 g/dL (31.0-37.0); MEAN PLATELET VOLUME 9.7 fL (7.4-10.4); MONOCYTES 5.6 % (2-11); NEUTROPHILS 70.4 % (40-80); PLATELET COUNT 153 10x3/uL (130-400); RBC 2.78 10x6/uL (4.00-5.40); RDW 17.9 % (11.5-14.5); WBC 11.9 10x3/uL (4.8-10.8)
[2018-05-06 05:27] LABS: CALC OSMOLALITY 279 mosm/kg (275-300); CALCIUM 8.9 mg/dL (8.5-10.1); CHLORIDE - SERUM 98 mmol/L (98-107); CREATININE - SERUM 0.8 mg/dL (0.6-1.3); POTASSIUM - SERUM 4.4 mmol/L (3.5-5.1); SODIUM 137 mmol/L (136-145); UREA NITROGEN 15 mg/dL (7-18); eGFR NON AFRICAN AMERICAN 81 mL/min (90-120)
[2018-05-06 05:31] LABS: GLUCOSE 190 mg/dL (74-106)
[2018-05-07] VITALS (19 sets, daily range): BP systolic 93–130; BP diastolic 52–87
[2018-05-07 05:03] LABS: BASOPHILS 0.5 % (0-2); EOSINOPHILS 0.1 % (0-7); HEMATOCRIT 27.3 % (36.0-48.0); HEMOGLOBIN 8.8 g/dL (12-16); IMMATURE GRANULOCYTES 10.4 % (0-5); LYMPHOCYTES 17.7 % (15-50); MCH 30.7 pg (26.0-34.0); MCHC 32.2 g/dL (31.0-37.0); MCV 95.1 fL (80.0-100.0); MEAN PLATELET VOLUME 9.7 fL (7.4-10.4); MONOCYTES 5.7 % (2-11); NEUTROPHILS 65.6 % (40-80); PLATELET COUNT 154 10x3/uL (130-400); RBC 2.87 10x6/uL (4.00-5.40); RDW 17.8 % (11.5-14.5); WBC 14.8 10x3/uL (4.8-10.8)
[2018-05-07 05:26] LABS: ALBUMIN 2.2 g/dL (3.4-5.0); ANION GAP 7.4 mmol/L (8-16); BILIRUBIN - TOTAL 0.28 mg/dL (0.2-1.3); CARBON DIOXIDE 36.6 mmol/L (21.0-32.0); CREATININE - SERUM 0.9 mg/dL (0.6-1.3); PROTEIN - SERUM 5.5 g/dL (6.4-8.2)
[2018-05-08] VITALS (66 sets, daily range): BP systolic 61–157; BP diastolic 30–140
[2018-05-08 05:18] LABS: BASOPHILS 0.7 % (0-2); EOSINOPHILS 0.4 % (0-7); HEMOGLOBIN 8.9 g/dL (12-16); IMMATURE GRANULOCYTES 12.6 % (0-5); LYMPHOCYTES 21.8 % (15-50); MCHC 31.8 g/dL (31.0-37.0); MCV 94.3 fL (80.0-100.0); MONOCYTES 4.9 % (2-11); NEUTROPHILS 59.6 % (40-80); PLATELET COUNT 170 10x3/uL (130-400); RBC 2.97 10x6/uL (4.00-5.40); RDW 17.6 % (11.5-14.5); WBC 16.1 10x3/uL (4.8-10.8)
[2018-05-08 05:47] LABS: ALBUMIN 2.3 g/dL (3.4-5.0); ALKALINE PHOSPHATASE 98 U/L (46-116); ALT (SGPT) 22 U/L (10-68); BILIRUBIN - TOTAL 0.15 mg/dL (0.2-1.3); CALCIUM 9.2 mg/dL (8.5-10.1); CHLORIDE - SERUM 95 mmol/L (98-107); CREATININE - SERUM 0.8 mg/dL (0.6-1.3); POTASSIUM - SERUM 3.6 mmol/L (3.5-5.1); PRO BNP 94 pg/mL (0-125); PROTEIN - SERUM 5.7 g/dL (6.4-8.2); SODIUM 136 mmol/L (136-145); UREA NITROGEN 19 mg/dL (7-18); eGFR NON AFRICAN AMERICAN 81 mL/min (90-120)
[2018-05-08 05:48] LABS: CALC OSMOLALITY 273 mosm/kg (275-300); CARBON DIOXIDE 41.7 mmol/L (21.0-32.0); GLUCOSE 90 mg/dL (74-106)
[2018-05-09] VITALS (41 sets, daily range): BP systolic 112–151; BP diastolic 58–841
[2018-05-09 04:55] LABS: BASOPHILS 0.6 % (0-2); EOSINOPHILS 0.1 % (0-7); IMMATURE GRANULOCYTES 12.2 % (0-5); LYMPHOCYTES 14.4 % (15-50); MCH 30.1 pg (26.0-34.0); MCHC 32.9 g/dL (31.0-37.0); MEAN PLATELET VOLUME 10.3 fL (7.4-10.4); MONOCYTES 2.7 % (2-11); PLATELET COUNT 161 10x3/uL (130-400); RDW 16.9 % (11.5-14.5); WBC 15.5 10x3/uL (4.8-10.8)
[2018-05-09 05:05] LABS: HEMOGLOBIN 11.5 g/dL (12-16); MCV 91.6 fL (80.0-100.0); RBC 3.82 10x6/uL (4.00-5.40)
[2018-05-09 05:21] LABS: ALBUMIN 2.2 g/dL (3.4-5.0); ALKALINE PHOSPHATASE 102 U/L (46-116); ALT (SGPT) 23 U/L (10-68); BILIRUBIN - TOTAL 0.53 mg/dL (0.2-1.3); CALCIUM 8.9 mg/dL (8.5-10.1); CHLORIDE - SERUM 97 mmol/L (98-107); CREATININE - SERUM 0.8 mg/dL (0.6-1.3); POTASSIUM - SERUM 3.4 mmol/L (3.5-5.1); PROTEIN - SERUM 5.8 g/dL (6.4-8.2); SODIUM 134 mmol/L (136-145); UREA NITROGEN 17 mg/dL (7-18); eGFR NON AFRICAN AMERICAN 81 mL/min (90-120)
[2018-05-09 05:25] LABS: CALC OSMOLALITY 280 mosm/kg (275-300); CARBON DIOXIDE 29.3 mmol/L (21.0-32.0); GLUCOSE 293 mg/dL (74-106)
[2018-05-10] VITALS (14 sets, daily range): BP systolic 132–170; BP diastolic 20–93
[2018-05-10 03:34] LABS: BASOPHILS 0.1 % (0-2); EOSINOPHILS 0 % (0-7); HEMATOCRIT 34.9 % (36.0-48.0); HEMOGLOBIN 11.4 g/dL (12-16); IMMATURE GRANULOCYTES 8.8 % (0-5); LYMPHOCYTES 11.4 % (15-50); MCH 30.4 pg (26.0-34.0); MCHC 32.7 g/dL (31.0-37.0); MCV 93.1 fL (80.0-100.0); MEAN PLATELET VOLUME 9.9 fL (7.4-10.4); MONOCYTES 5.4 % (2-11); NEUTROPHILS 74.3 % (40-80); PLATELET COUNT 176 10x3/uL (130-400); RBC 3.75 10x6/uL (4.00-5.40); RDW 17.1 % (11.5-14.5); WBC 17.7 10x3/uL (4.8-10.8)
[2018-05-10 03:51] LABS: ALBUMIN 2.3 g/dL (3.4-5.0); ALKALINE PHOSPHATASE 94 U/L (46-116); ALT (SGPT) 23 U/L (10-68); AMYLASE - SERUM 145 U/L (25-115); BILIRUBIN - TOTAL 0.28 mg/dL (0.2-1.3); CALC OSMOLALITY 280 mosm/kg (275-300); CALCIUM 10.4 mg/dL (8.5-10.1); CARBON DIOXIDE 29.5 mmol/L (21.0-32.0); CHLORIDE - SERUM 105 mmol/L (98-107); CREATININE - SERUM 0.6 mg/dL (0.6-1.3); GLUCOSE 98 mg/dL (74-106); LIPASE 60 U/L (73-393); MAGNESIUM - SERUM 1.7 mg/dL (1.8-2.4); PHOSPHOROUS 2.6 mg/dL (2.5-4.9); POTASSIUM - SERUM 4.1 mmol/L (3.5-5.1); PRO BNP 481 pg/mL (0-125); PROTEIN - SERUM 5.9 g/dL (6.4-8.2); SODIUM 140 mmol/L (136-145); UREA NITROGEN 17 mg/dL (7-18); VANCOMYCIN - TROUGH 16.4 ug/mL (10.0-20.0); eGFR NON AFRICAN AMERICAN > 90 mL/min (90-120)
[2018-05-11 01:29] VITALS: BP 185/100
[2018-05-11 05:15] LABS: BASOPHILS 0.3 % (0-2); EOSINOPHILS 0 % (0-7); LYMPHOCYTES 8.3 % (15-50); MCH 30.4 pg (26.0-34.0); MCHC 32.4 g/dL (31.0-37.0); MCV 93.7 fL (80.0-100.0); MEAN PLATELET VOLUME 10.2 fL (7.4-10.4); NEUTROPHILS 77.4 % (40-80); PLATELET COUNT 191 10x3/uL (130-400); RBC 3.95 10x6/uL (4.00-5.40); RDW 16.8 % (11.5-14.5); WBC 14.3 10x3/uL (4.8-10.8)
[2018-05-11 05:33] LABS: ALBUMIN 2.3 g/dL (3.4-5.0); ALKALINE PHOSPHATASE 98 U/L (46-116); ALT (SGPT) 22 U/L (10-68); BILIRUBIN - TOTAL 0.29 mg/dL (0.2-1.3); CALC OSMOLALITY 288 mosm/kg (275-300); CALCIUM 9.9 mg/dL (8.5-10.1); CARBON DIOXIDE 24.2 mmol/L (21.0-32.0); CHLORIDE - SERUM 106 mmol/L (98-107); CREATININE - SERUM 0.6 mg/dL (0.6-1.3); GLUCOSE 185 mg/dL (74-106); MAGNESIUM - SERUM 1.6 mg/dL (1.8-2.4); PHOSPHOROUS 2.8 mg/dL (2.5-4.9); POTASSIUM - SERUM 4.2 mmol/L (3.5-5.1); PROTEIN - SERUM 5.8 g/dL (6.4-8.2); SODIUM 141 mmol/L (136-145); UREA NITROGEN 22 mg/dL (7-18); eGFR NON AFRICAN AMERICAN > 90 mL/min (90-120)
[2018-05-11 05:44] VITALS: BP 177/106
[2018-05-11 09:05] VITALS: BP 157/101
[2018-05-11 12:06] VITALS: BP 162/119
[2018-05-11 13:15] VITALS: BP 140/111
[2018-05-11 17:12] VITALS: BP 160/100
[2018-05-12 04:00] VITALS: BP 174/105
[2018-05-12 06:18] LABS: BASOPHILS 0.3 % (0-2); EOSINOPHILS 0.1 % (0-7); HEMATOCRIT 40.8 % (36.0-48.0); HEMOGLOBIN 13.6 g/dL (12-16); LYMPHOCYTES 15.8 % (15-50); MCH 31.1 pg (26.0-34.0); MCHC 33.3 g/dL (31.0-37.0); MCV 93.2 fL (80.0-100.0); MEAN PLATELET VOLUME 10.3 fL (7.4-10.4); NEUTROPHILS 65.8 % (40-80); PLATELET COUNT 203 10x3/uL (130-400); RBC 4.38 10x6/uL (4.00-5.40); RDW 16.6 % (11.5-14.5); WBC 13.9 10x3/uL (4.8-10.8)
[2018-05-12 06:35] LABS: CALC OSMOLALITY 279 mosm/kg (275-300); CALCIUM 9.8 mg/dL (8.5-10.1); CARBON DIOXIDE 27.3 mmol/L (21.0-32.0); CHLORIDE - SERUM 104 mmol/L (98-107); CREATININE - SERUM 0.5 mg/dL (0.6-1.3); GLUCOSE 147 mg/dL (74-106); MAGNESIUM - SERUM 1.7 mg/dL (1.8-2.4); POTASSIUM - SERUM 3.8 mmol/L (3.5-5.1); SODIUM 138 mmol/L (136-145); UREA NITROGEN 14 mg/dL (7-18); eGFR NON AFRICAN AMERICAN > 90 mL/min (90-120)
[2018-05-12 08:27] VITALS: BP 173/102
[2018-05-12 11:00] VITALS: BP 164/109
[2018-05-12 18:38] VITALS: BP 141/82
[2018-05-12 20:00] VITALS: BP 148/81
[2018-05-13 00:53] VITALS: BP 119/80
[2018-05-13 04:00] VITALS: BP 125/80
[2018-05-13 04:32] LABS: BASOPHILS 0.7 % (0-2); EOSINOPHILS 0.3 % (0-7); HEMATOCRIT 39.7 % (36.0-48.0); HEMOGLOBIN 12.8 g/dL (12-16); IMMATURE GRANULOCYTES 10.9 % (0-5); LYMPHOCYTES 19.9 % (15-50); MCH 30.5 pg (26.0-34.0); MCHC 32.2 g/dL (31.0-37.0); MCV 94.5 fL (80.0-100.0); MEAN PLATELET VOLUME 10.7 fL (7.4-10.4); MONOCYTES 6.3 % (2-11); NEUTROPHILS 61.9 % (40-80); PLATELET COUNT 209 10x3/uL (130-400); RDW 16.4 % (11.5-14.5); WBC 14.8 10x3/uL (4.8-10.8)
[2018-05-13 04:52] LABS: CALCIUM 9.3 mg/dL (8.5-10.1); CARBON DIOXIDE 27.9 mmol/L (21.0-32.0); CHLORIDE - SERUM 106 mmol/L (98-107); CREATININE - SERUM 0.4 mg/dL (0.6-1.3); MAGNESIUM - SERUM 1.6 mg/dL (1.8-2.4); POTASSIUM - SERUM 3.4 mmol/L (3.5-5.1); SODIUM 141 mmol/L (136-145); eGFR NON AFRICAN AMERICAN > 90 mL/min (90-120)
[2018-05-13 05:04] LABS: CALC OSMOLALITY 277 mosm/kg (275-300); GLUCOSE 64 mg/dL (74-106); UREA NITROGEN 10 mg/dL (7-18)
[2018-05-13 08:58] VITALS: BP 147/85
[2018-05-13 11:00] VITALS: BP 148/87
[2018-05-13 15:45] VITALS: BP 140/76
[2018-05-13 20:52] VITALS: BP 140/74
[2018-05-14] VITALS: BP 165/89
[2018-05-14 03:00] VITALS: BP 151/99
[2018-05-14 04:00] VITALS: BP 126/77
[2018-05-14 06:40] LABS: CARBON DIOXIDE 28.6 mmol/L (21.0-32.0); CHLORIDE - SERUM 103 mmol/L (98-107); CREATININE - SERUM 0.5 mg/dL (0.6-1.3); GLUCOSE 86 mg/dL (74-106); MAGNESIUM - SERUM 1.7 mg/dL (1.8-2.4); SODIUM 138 mmol/L (136-145); eGFR NON AFRICAN AMERICAN > 90 mL/min (90-120)
[2018-05-14 06:43] LABS: CALC OSMOLALITY 272 mosm/kg (275-300); POTASSIUM - SERUM 3.6 mmol/L (3.5-5.1); UREA NITROGEN 7 mg/dL (7-18)
[2018-05-14 07:20] LABS: BASOPHILS 0.6 % (0-2); EOSINOPHILS 0.6 % (0-7); HEMATOCRIT 39.1 % (36.0-48.0); HEMOGLOBIN 12.7 g/dL (12-16); IMMATURE GRANULOCYTES 11.3 % (0-5); LYMPHOCYTES 27.1 % (15-50); MCH 30.4 pg (26.0-34.0); MCHC 32.5 g/dL (31.0-37.0); MCV 93.5 fL (80.0-100.0); MEAN PLATELET VOLUME 10.8 fL (7.4-10.4); MONOCYTES 7.1 % (2-11); NEUTROPHILS 53.3 % (40-80); PLATELET COUNT 242 10x3/uL (130-400); RBC 4.18 10x6/uL (4.00-5.40); RDW 16.3 % (11.5-14.5); WBC 14.3 10x3/uL (4.8-10.8)
[2018-05-14 08:56] VITALS: BP 122/75
[2018-05-14 11:00] VITALS: BP 140/50
[2018-05-14 21:22] VITALS: BP 132/81
[2018-05-15 02:11] VITALS: BP 144/87
[2018-05-15 06:40] VITALS: BP 145/85
[2018-05-15 06:46] LABS: BASOPHILS 0.4 % (0-2); EOSINOPHILS 0.4 % (0-7); HEMATOCRIT 38.9 % (36.0-48.0); HEMOGLOBIN 12.5 g/dL (12-16); IMMATURE GRANULOCYTES 10.2 % (0-5); LYMPHOCYTES 31.1 % (15-50); MCH 30.5 pg (26.0-34.0); MCHC 32.1 g/dL (31.0-37.0); MCV 94.9 fL (80.0-100.0); MEAN PLATELET VOLUME 10.7 fL (7.4-10.4); MONOCYTES 9.4 % (2-11); NEUTROPHILS 48.5 % (40-80); PLATELET COUNT 267 10x3/uL (130-400); RDW 16.3 % (11.5-14.5); WBC 13.7 10x3/uL (4.8-10.8)
[2018-05-15 07:02] LABS: CARBON DIOXIDE 27.3 mmol/L (21.0-32.0); CHLORIDE - SERUM 103 mmol/L (98-107); CREATININE - SERUM 0.5 mg/dL (0.6-1.3); MAGNESIUM - SERUM 1.5 mg/dL (1.8-2.4); POTASSIUM - SERUM 3.4 mmol/L (3.5-5.1); SODIUM 137 mmol/L (136-145); eGFR NON AFRICAN AMERICAN > 90 mL/min (90-120)
[2018-05-15 07:07] LABS: CALC OSMOLALITY 277 mosm/kg (275-300); GLUCOSE 219 mg/dL (74-106); UREA NITROGEN 5 mg/dL (7-18)
[2018-05-15 08:42] VITALS: BP 147/93
[2018-05-15 13:12] VITALS: BP 126/85
[2018-05-15 17:08] VITALS: BP 134/85
[2018-05-15 20:30] VITALS: BP 162/94
[2018-05-16 00:30] VITALS: BP 115/66
[2018-05-16 04:18] LABS: BASOPHILS 0.5 % (0-2); EOSINOPHILS 0.3 % (0-7); HEMATOCRIT 36.6 % (36.0-48.0); HEMOGLOBIN 11.8 g/dL (12-16); IMMATURE GRANULOCYTES 9.1 % (0-5); LYMPHOCYTES 26.2 % (15-50); MCH 30.2 pg (26.0-34.0); MCHC 32.2 g/dL (31.0-37.0); MCV 93.6 fL (80.0-100.0); MEAN PLATELET VOLUME 10.3 fL (7.4-10.4); MONOCYTES 10.5 % (2-11); NEUTROPHILS 53.4 % (40-80); PLATELET COUNT 252 10x3/uL (130-400); RBC 3.91 10x6/uL (4.00-5.40); WBC 13.1 10x3/uL (4.8-10.8)
[2018-05-16 04:19] LABS: CALC OSMOLALITY 276 mosm/kg (275-300); CARBON DIOXIDE 31.1 mmol/L (21.0-32.0); CHLORIDE - SERUM 104 mmol/L (98-107); CREATININE - SERUM 0.4 mg/dL (0.6-1.3); MAGNESIUM - SERUM 1.3 mg/dL (1.8-2.4); POTASSIUM - SERUM 4.3 mmol/L (3.5-5.1); SODIUM 139 mmol/L (136-145); UREA NITROGEN 5 mg/dL (7-18); eGFR NON AFRICAN AMERICAN > 90 mL/min (90-120)
[2018-05-16 04:20] LABS: GLUCOSE 134 mg/dL (74-106)
[2018-05-16 04:30] VITALS: BP 164/86
[2018-05-16 07:56] VITALS: BP 155/86
[2018-05-16 11:53] VITALS: BP 141/74
[2018-05-16 16:14] VITALS: BP 140/90
[2018-05-16 21:14] VITALS: BP 144/81
[2018-05-17 01:15] VITALS: BP 151/84
[2018-05-17 04:45] VITALS: BP 160/91
[2018-05-17 05:04] LABS: BASOPHILS 0.6 % (0-2); EOSINOPHILS 0.2 % (0-7); HEMATOCRIT 34.2 % (36.0-48.0); HEMOGLOBIN 11.2 g/dL (12-16); IMMATURE GRANULOCYTES 8.9 % (0-5); LYMPHOCYTES 23.9 % (15-50); MCH 30.5 pg (26.0-34.0); MCHC 32.7 g/dL (31.0-37.0); MCV 93.2 fL (80.0-100.0); MEAN PLATELET VOLUME 10.1 fL (7.4-10.4); MONOCYTES 11.1 % (2-11); NEUTROPHILS 55.3 % (40-80); PLATELET COUNT 247 10x3/uL (130-400); RBC 3.67 10x6/uL (4.00-5.40); RDW 15.8 % (11.5-14.5); WBC 12.4 10x3/uL (4.8-10.8)
[2018-05-17 05:19] LABS: CALC OSMOLALITY 274 mosm/kg (275-300); CALCIUM 9.2 mg/dL (8.5-10.1); CHLORIDE - SERUM 103 mmol/L (98-107); CREATININE - SERUM 0.4 mg/dL (0.6-1.3); GLUCOSE 99 mg/dL (74-106); MAGNESIUM - SERUM 1.4 mg/dL (1.8-2.4); POTASSIUM - SERUM 3.8 mmol/L (3.5-5.1); SODIUM 140 mmol/L (136-145); eGFR NON AFRICAN AMERICAN > 90 mL/min (90-120)
[2018-05-17 05:21] LABS: UREA NITROGEN 2 mg/dL (7-18)
[2018-05-17 08:47] VITALS: BP 143/75
[2018-05-17 11:34] VITALS: BP 141/85
[2018-05-17 15:53] VITALS: BP 152/82
[2018-05-17 21:46] VITALS: BP 163/89
[2018-05-18 02:34] VITALS: BP 149/89
[2018-05-18 05:11] LABS: BASOPHILS 0.6 % (0-2); EOSINOPHILS 0.1 % (0-7); HEMATOCRIT 36.9 % (36.0-48.0); HEMOGLOBIN 12.1 g/dL (12-16); IMMATURE GRANULOCYTES 9.1 % (0-5); LYMPHOCYTES 29.7 % (15-50); MCH 30.4 pg (26.0-34.0); MCHC 32.8 g/dL (31.0-37.0); MCV 92.7 fL (80.0-100.0); MEAN PLATELET VOLUME 10.5 fL (7.4-10.4); MONOCYTES 10.4 % (2-11); NEUTROPHILS 50.1 % (40-80); RBC 3.98 10x6/uL (4.00-5.40); RDW 15.6 % (11.5-14.5)
[2018-05-18 05:20] LABS: PLATELET COUNT 299 10x3/uL (130-400); WBC 19.6 10x3/uL (4.8-10.8)
[2018-05-18 05:33] LABS: ALBUMIN 2.3 g/dL (3.4-5.0); ALKALINE PHOSPHATASE 112 U/L (46-116); ALT (SGPT) 23 U/L (10-68); BILIRUBIN - TOTAL 0.18 mg/dL (0.2-1.3); CALC OSMOLALITY 274 mosm/kg (275-300); CALCIUM 8.6 mg/dL (8.5-10.1); CHLORIDE - SERUM 98 mmol/L (98-107); CREATININE - SERUM 0.4 mg/dL (0.6-1.3); GLUCOSE 112 mg/dL (74-106); MAGNESIUM - SERUM 1.2 mg/dL (1.8-2.4); POTASSIUM - SERUM 3.6 mmol/L (3.5-5.1); PROTEIN - SERUM 5.9 g/dL (6.4-8.2); SODIUM 139 mmol/L (136-145); UREA NITROGEN 2 mg/dL (7-18); eGFR NON AFRICAN AMERICAN > 90 mL/min (90-120)
[2018-05-18 06:34] VITALS: BP 160/91
[2018-05-18 08:20] VITALS: BP 137/69
[2018-05-18 12:23] VITALS: BP 169/92
[2018-05-18] MEDS ORDERED: NORVASC10 MG PO (15:09)
[2018-05-18] MEDS ORDERED: QUESTRAN PACKET PO (15:10)
[2018-05-18] MEDS ORDERED: CELEXA20 MG PO (15:11)
[2018-05-18] MEDS ORDERED: GLUCOPHAGE500 MG PO (15:13)
[2018-05-18 16:10] VITALS: BP 152/90
[2018-05-18 20:36] VITALS: BP 128/74
[2018-05-19] VITALS: BP 143/81
[2018-05-19 04:00] VITALS: BP 140/85; BP 143/81
[2018-05-19 04:56] LABS: BASOPHILS 0.6 % (0-2); EOSINOPHILS 0.2 % (0-7); HEMATOCRIT 36.2 % (36.0-48.0); HEMOGLOBIN 11.7 g/dL (12-16); IMMATURE GRANULOCYTES 7.4 % (0-5); LYMPHOCYTES 24.2 % (15-50); MCH 30.2 pg (26.0-34.0); MCHC 32.3 g/dL (31.0-37.0); MCV 93.5 fL (80.0-100.0); MEAN PLATELET VOLUME 10.2 fL (7.4-10.4); NEUTROPHILS 58.6 % (40-80); PLATELET COUNT 277 10x3/uL (130-400); RBC 3.87 10x6/uL (4.00-5.40); WBC 18.2 10x3/uL (4.8-10.8)
[2018-05-19 05:39] LABS: ALBUMIN 2.3 g/dL (3.4-5.0); ALKALINE PHOSPHATASE 107 U/L (46-116); ALT (SGPT) 18 U/L (10-68); BILIRUBIN - TOTAL 0.34 mg/dL (0.2-1.3); CALC OSMOLALITY 280 mosm/kg (275-300); CALCIUM 8.9 mg/dL (8.5-10.1); CHLORIDE - SERUM 101 mmol/L (98-107); CREATININE - SERUM 0.4 mg/dL (0.6-1.3); GLUCOSE 109 mg/dL (74-106); MAGNESIUM - SERUM 1.3 mg/dL (1.8-2.4); POTASSIUM - SERUM 3.2 mmol/L (3.5-5.1); PROTEIN - SERUM 5.7 g/dL (6.4-8.2); SODIUM 142 mmol/L (136-145); UREA NITROGEN 4 mg/dL (7-18); eGFR NON AFRICAN AMERICAN > 90 mL/min (90-120)
[2018-05-19 08:35] VITALS: BP 129/85
[2018-05-19 11:50] VITALS: BP 123/84
== END 2018-05-19 11:30 | DRG 981 ==
LOC: D.ER 21:40 → D.M2 23:48 → D.MS 23:48 → D.ICU 03-23 09:32 → D.MS 03-29 15:45 → D.ICU 04-10 12:54 → D.MS 04-16 06:43 → D.ICU 05-06 17:23 → D.M2 05-10 14:54
PROVIDERS: Emergency Medicine; Family Medicine; Internal Medicine Gastroenterology; Internal Medicine Nephrology; Internal Medicine Pulmonary Disease; Surgery
PROC: 5A09457 Assistance with Respiratory Ventilation, 24-96 Consecutive Hours, Continuous Positive Airway Pressure (ICD-10-PCS; 2018-03-23)
PROC: 02HV33Z Insertion of Infusion Device into Superior Vena Cava, Percutaneous Approach (ICD-10-PCS; 2018-03-23)
PROC: B548ZZA Ultrasonography of Superior Vena Cava, Guidance (ICD-10-PCS; 2018-03-23)
PROC: 02HV33Z Insertion of Infusion Device into Superior Vena Cava, Percutaneous Approach (ICD-10-PCS; 2018-04-06)
PROC: B548ZZA Ultrasonography of Superior Vena Cava, Guidance (ICD-10-PCS; 2018-04-06)
PROC: 0DBN0ZZ Excision of Sigmoid Colon, Open Approach (ICD-10-PCS; principal; 2018-04-08 10:00)
PROC: 02HV33Z Insertion of Infusion Device into Superior Vena Cava, Percutaneous Approach (ICD-10-PCS; 2018-04-26)
PROC: 0JH63WZ Insertion of Totally Implantable Vascular Access Device into Chest Subcutaneous Tissue and Fascia, Percutaneous Approach (ICD-10-PCS; 2018-04-26)
PROC: B5181ZA Fluoroscopy of Superior Vena Cava using Low Osmolar Contrast, Guidance (ICD-10-PCS; 2018-04-26)
DX: K85.90 Acute pancreatitis without necrosis or infection, unspecified (principal); J96.21 Acute and chronic respiratory failure with hypoxia; J96.22 Acute and chronic respiratory failure with hypercapnia; I50.33 Acute on chronic diastolic (congestive) heart failure; J18.1 Lobar pneumonia, unspecified organism; E87.1 Hypo-osmolality and hyponatremia; K43.3 Parastomal hernia with obstruction, without gangrene; E87.3 Alkalosis; G72.81 Critical illness myopathy; K86.1 Other chronic pancreatitis; F10.21 Alcohol dependence, in remission; K59.00 Constipation, unspecified; Y95 Nosocomial condition; M06.9 Rheumatoid arthritis, unspecified; E86.0 Dehydration; J84.112 Idiopathic pulmonary fibrosis; K86.89 Other specified diseases of pancreas; I27.20 Pulmonary hypertension, unspecified; J43.9 Emphysema, unspecified; I11.0 Hypertensive heart disease with heart failure; E11.65 Type 2 diabetes mellitus with hyperglycemia; D50.9 Iron deficiency anemia, unspecified; R00.0 Tachycardia, unspecified; I95.9 Hypotension, unspecified; E83.42 Hypomagnesemia; N32.89 Other specified disorders of bladder; F41.9 Anxiety disorder, unspecified; I07.1 Rheumatic tricuspid insufficiency; Z87.891 Personal history of nicotine dependence

== ENCOUNTER 2018-06-01 21:41 | Outpatient (CLI) | payer MEDICARE ==
[~2018-06-01 21:41] MED LIST changes: +GLUCOPHAGE500 MG PO; +QUESTRAN PACKET PO
[2018-06-14] MEDS ORDERED: BACTRIM DS PO ×2 (13:11→13:14)
[2018-06-14] MEDS ORDERED: Lantus Solostar PEN SC (13:11)
[2018-06-14] MEDS ORDERED: FLORAJEN3 CAPS460 MG PO (13:11)
[2018-06-14] MEDS ORDERED: ZYVOX600 MG PO (13:15)
[2018-06-14] MEDS ORDERED: NORCO-10 PO (13:18)
[2018-06-15] MEDS ORDERED: MAG-OX 400 MG400 MG PO (11:20)
[2018-06-15] MEDS ORDERED: K-DUR20 MEQ PO (11:22)
[2018-06-15] MEDS ORDERED: NEURONTIN 300300 MG PO (12:37)
[2018-06-15] MEDS ORDERED: PREDNISONE20 MG PO (12:37)
[2018-06-15] MEDS ORDERED: METOPROLOL TART50 MG PO (12:37)
[2018-06-15] MEDS ORDERED: PHENERGAN DM SYR5 ML PO (12:37)
[2018-06-15] MEDS ORDERED: CREON (PANCRELI1 CAP PO (12:37)
[2018-06-15] MEDS ORDERED: NYSTATIN1 PWD TOPICAL (12:43)
[2018-06-15] MEDS ORDERED: EMLA CREAM 30 G30 G1 TOPICAL (12:43)
[2018-06-18 10:42] VITALS: BMI 27.4
== END 2018-06-01 22:38 | disposition other institution (70) ==
LOC: D.OPS 21:41
DX: J18.9 Pneumonia, unspecified organism (principal)

== ENCOUNTER 2018-06-01 21:41 | Inpatient (IN) | payer MEDICARE ==
[2018-06-01 23:15] LABS: BASOPHILS 0.1 % (0-2); EOSINOPHILS 3.5 % (0-7); HEMATOCRIT 36.8 % (36.0-48.0); HEMOGLOBIN 12.1 g/dL (12-16); IMMATURE GRANULOCYTES 2.4 % (0-5); LYMPHOCYTES 28.8 % (15-50); MCH 30.3 pg (26.0-34.0); MCHC 32.9 g/dL (31.0-37.0); MEAN PLATELET VOLUME 10.1 fL (7.4-10.4); MONOCYTES 11.3 % (2-11); NEUTROPHILS 53.9 % (40-80); PLATELET COUNT 289 10x3/uL (130-400); RDW 16.5 % (11.5-14.5); WBC 15.3 10x3/uL (4.8-10.8)
[2018-06-01 23:19] LABS: APTT 36.7 SECONDS (22.8-39.4); INR 0.98 (0.85-1.17); PROTIME 12.5 SECONDS (11.6-15.0)
[2018-06-01 23:48] LABS: ALBUMIN 2.1 g/dL (3.4-5.0); ALKALINE PHOSPHATASE 139 U/L (46-116); ALT (SGPT) 13 U/L (10-68); BILIRUBIN - TOTAL 0.53 mg/dL (0.2-1.3); CALC OSMOLALITY 273 mosm/kg (275-300); CALCIUM 8.1 mg/dL (8.5-10.1); CARBON DIOXIDE 31.9 mmol/L (21.0-32.0); CHLORIDE - SERUM 100 mmol/L (98-107); CKMB 1.3 U/L (0.0-3.6); CREATINE KINASE 19 UL (21-215); CREATININE - SERUM 0.4 mg/dL (0.6-1.3); GLUCOSE 140 mg/dL (74-106); PROTEIN - SERUM 5.6 g/dL (6.4-8.2); SODIUM 137 mmol/L (136-145); TROPONIN-I 0.019 ng/mL (0.000-0.060); UREA NITROGEN 8 mg/dL (7-18); eGFR NON AFRICAN AMERICAN > 90 mL/min (90-120)
[2018-06-01 23:56] LABS: POTASSIUM - SERUM 2.4 mmol/L (3.5-5.1)
[2018-06-02 01:25] LABS: APPEARANCE CLOUDY (CLEAR); BILIRUBIN NEGATIVE (NEGATIVE); COLOR YELLOW (YELLOW); GLUCOSE NEGATIVE (NEGATIVE); KETONE NEGATIVE (NEGATIVE); NITRITE NEGATIVE (NEGATIVE); PROTEIN 1+ mg/dL (NEGATIVE); UROBILINOGEN NORMAL (NORMAL)
[2018-06-02 01:26] LABS: BACTERIA MODERATE /hpf (NONE SEEN); EPITHELIAL CELLS 0-5 /hpf (0-5); RED CELLS - URINE 0-5 /hpf (0-5); YEAST >1+ /hpf (NONE SEEN)
[2018-06-02 10:04] LABS: BASOPHILS 0.2 % (0-2); EOSINOPHILS 0.2 % (0-7); HEMATOCRIT 39.4 % (36.0-48.0); HEMOGLOBIN 12.8 g/dL (12-16); IMMATURE GRANULOCYTES 1.8 % (0-5); LYMPHOCYTES 20.5 % (15-50); MCH 30.6 pg (26.0-34.0); MCHC 32.5 g/dL (31.0-37.0); MEAN PLATELET VOLUME 10.3 fL (7.4-10.4); MONOCYTES 1.6 % (2-11); NEUTROPHILS 75.7 % (40-80); PLATELET COUNT 268 10x3/uL (130-400); RBC 4.18 10x6/uL (4.00-5.40); RDW 16.8 % (11.5-14.5)
[2018-06-02 10:20] LABS: ALBUMIN 2.4 g/dL (3.4-5.0); ALKALINE PHOSPHATASE 154 U/L (46-116); BILIRUBIN - TOTAL 0.45 mg/dL (0.2-1.3); CALCIUM 8.6 mg/dL (8.5-10.1); CARBON DIOXIDE 26.5 mmol/L (21.0-32.0); CHLORIDE - SERUM 97 mmol/L (98-107); PROTEIN - SERUM 5.9 g/dL (6.4-8.2); SODIUM 136 mmol/L (136-145); UREA NITROGEN 8 mg/dL (7-18)
[2018-06-02 10:22] LABS: ALT (SGPT) 17 U/L (10-68); CALC OSMOLALITY 279 mosm/kg (275-300); CREATININE - SERUM 0.7 mg/dL (0.6-1.3); GLUCOSE 277 mg/dL (74-106); MCV 94.3 fL (80.0-100.0); POTASSIUM - SERUM 4.3 mmol/L (3.5-5.1); eGFR NON AFRICAN AMERICAN > 90 mL/min (90-120)
[2018-06-03 05:47] LABS: BASOPHILS 0.1 % (0-2); EOSINOPHILS 0 % (0-7); HEMATOCRIT 31.9 % (36.0-48.0); HEMOGLOBIN 10.4 g/dL (12-16); LYMPHOCYTES 13.8 % (15-50); MCH 30.4 pg (26.0-34.0); MCHC 32.6 g/dL (31.0-37.0); MCV 93.3 fL (80.0-100.0); MEAN PLATELET VOLUME 9.9 fL (7.4-10.4); MONOCYTES 8.3 % (2-11); NEUTROPHILS 76.8 % (40-80); PLATELET COUNT 273 10x3/uL (130-400); RBC 3.42 10x6/uL (4.00-5.40); RDW 16.6 % (11.5-14.5)
[2018-06-03 05:50] LABS: WBC 14.2 10x3/uL (4.8-10.8)
[2018-06-03 06:44] LABS: ALBUMIN 1.9 g/dL (3.4-5.0); ALKALINE PHOSPHATASE 112 U/L (46-116); ALT (SGPT) 14 U/L (10-68); AMYLASE - SERUM 46 U/L (25-115); BILIRUBIN - TOTAL 0.21 mg/dL (0.2-1.3); CALCIUM 8.1 mg/dL (8.5-10.1); CHLORIDE - SERUM 101 mmol/L (98-107); CKMB 1.4 U/L (0.0-3.6); CREATINE KINASE 22 UL (21-215); GLUCOSE 265 mg/dL (74-106); POTASSIUM - SERUM 4.2 mmol/L (3.5-5.1); PROTEIN - SERUM 4.9 g/dL (6.4-8.2); SODIUM 139 mmol/L (136-145); TROPONIN-I < 0.017 ng/mL (0.000-0.060)
[2018-06-03 06:47] LABS: CALC OSMOLALITY 287 mosm/kg (275-300); CARBON DIOXIDE 33.5 mmol/L (21.0-32.0); CREATININE - SERUM 0.5 mg/dL (0.6-1.3); LIPASE 38 U/L (73-393); UREA NITROGEN 14 mg/dL (7-18); eGFR NON AFRICAN AMERICAN > 90 mL/min (90-120)
[2018-06-04 06:20] LABS: BASOPHILS 0.1 % (0-2); EOSINOPHILS 0 % (0-7); HEMATOCRIT 31.2 % (36.0-48.0); HEMOGLOBIN 9.9 g/dL (12-16); IMMATURE GRANULOCYTES 1.3 % (0-5); LYMPHOCYTES 8.7 % (15-50); MCH 30.1 pg (26.0-34.0); MCHC 31.7 g/dL (31.0-37.0); MCV 94.8 fL (80.0-100.0); MEAN PLATELET VOLUME 10.5 fL (7.4-10.4); MONOCYTES 5.2 % (2-11); NEUTROPHILS 84.7 % (40-80); PLATELET COUNT 280 10x3/uL (130-400); RBC 3.29 10x6/uL (4.00-5.40); RDW 16.6 % (11.5-14.5); WBC 13.5 10x3/uL (4.8-10.8)
[2018-06-04 06:48] LABS: ALKALINE PHOSPHATASE 105 U/L (46-116); ALT (SGPT) 15 U/L (10-68); AMYLASE - SERUM 50 U/L (25-115); BILIRUBIN - TOTAL 0.24 mg/dL (0.2-1.3); CALCIUM 8.1 mg/dL (8.5-10.1); CARBON DIOXIDE 37.3 mmol/L (21.0-32.0); CHLORIDE - SERUM 98 mmol/L (98-107); CKMB 0.8 U/L (0.0-3.6); CREATINE KINASE 17 UL (21-215); POTASSIUM - SERUM 3.8 mmol/L (3.5-5.1); PROTEIN - SERUM 5.3 g/dL (6.4-8.2); SODIUM 139 mmol/L (136-145); TROPONIN-I < 0.017 ng/mL (0.000-0.060)
[2018-06-04 07:15] LABS: LIPASE 47 U/L (73-393)
[2018-06-04 07:17] LABS: CALC OSMOLALITY 299 mosm/kg (275-300); CREATININE - SERUM 0.7 mg/dL (0.6-1.3); GLUCOSE 447 mg/dL (74-106); UREA NITROGEN 20 mg/dL (7-18); eGFR NON AFRICAN AMERICAN > 90 mL/min (90-120)
[2018-06-05 05:10] LABS: BASOPHILS 0.2 % (0-2); EOSINOPHILS 0.1 % (0-7); HEMATOCRIT 27.5 % (36.0-48.0); HEMOGLOBIN 8.9 g/dL (12-16); IMMATURE GRANULOCYTES 2.5 % (0-5); LYMPHOCYTES 9.2 % (15-50); MCHC 32.4 g/dL (31.0-37.0); MCV 95.8 fL (80.0-100.0); MEAN PLATELET VOLUME 10.2 fL (7.4-10.4); MONOCYTES 5.7 % (2-11); NEUTROPHILS 82.3 % (40-80); PLATELET COUNT 237 10x3/uL (130-400); RBC 2.87 10x6/uL (4.00-5.40); RDW 16.4 % (11.5-14.5); WBC 12.4 10x3/uL (4.8-10.8)
[2018-06-05 05:47] LABS: ALBUMIN 1.7 g/dL (3.4-5.0); ALKALINE PHOSPHATASE 91 U/L (46-116); ALT (SGPT) 14 U/L (10-68); AMYLASE - SERUM 43 U/L (25-115); BILIRUBIN - TOTAL 0.37 mg/dL (0.2-1.3); CARBON DIOXIDE 28.2 mmol/L (21.0-32.0); CHLORIDE - SERUM 105 mmol/L (98-107); CKMB 0.8 U/L (0.0-3.6); CREATINE KINASE 18 UL (21-215); PROTEIN - SERUM 4.5 g/dL (6.4-8.2); SODIUM 142 mmol/L (136-145); TROPONIN-I < 0.017 ng/mL (0.000-0.060); UREA NITROGEN 15 mg/dL (7-18)
[2018-06-05 05:51] LABS: CALC OSMOLALITY 299 mosm/kg (275-300); CREATININE - SERUM 0.5 mg/dL (0.6-1.3); GLUCOSE 379 mg/dL (74-106); LIPASE 49 U/L (73-393)
[2018-06-05 05:52] LABS: CALCIUM 6.4 mg/dL (8.5-10.1); POTASSIUM - SERUM 2.9 mmol/L (3.5-5.1); eGFR NON AFRICAN AMERICAN > 90 mL/min (90-120)
[2018-06-06 07:07] LABS: BASOPHILS 0.1 % (0-2); EOSINOPHILS 0 % (0-7); HEMATOCRIT 30.4 % (36.0-48.0); HEMOGLOBIN 9.6 g/dL (12-16); IMMATURE GRANULOCYTES 2.5 % (0-5); LYMPHOCYTES 13.8 % (15-50); MCH 30.1 pg (26.0-34.0); MCHC 31.6 g/dL (31.0-37.0); MCV 95.3 fL (80.0-100.0); MEAN PLATELET VOLUME 10.3 fL (7.4-10.4); MONOCYTES 5.8 % (2-11); NEUTROPHILS 77.8 % (40-80); RBC 3.19 10x6/uL (4.00-5.40); RDW 16.3 % (11.5-14.5); WBC 14.6 10x3/uL (4.8-10.8)
[2018-06-06 07:08] LABS: ALBUMIN 2.1 g/dL (3.4-5.0); ALKALINE PHOSPHATASE 100 U/L (46-116); ALT (SGPT) 24 U/L (10-68); AMYLASE - SERUM 46 U/L (25-115); BILIRUBIN - TOTAL 0.31 mg/dL (0.2-1.3); CALC OSMOLALITY 290 mosm/kg (275-300); CALCIUM 8.3 mg/dL (8.5-10.1); CARBON DIOXIDE 36.6 mmol/L (21.0-32.0); CHLORIDE - SERUM 99 mmol/L (98-107); CKMB 0.6 U/L (0.0-3.6); CREATINE KINASE 17 UL (21-215); CREATININE - SERUM 0.5 mg/dL (0.6-1.3); GLUCOSE 271 mg/dL (74-106); LIPASE 47 U/L (73-393); POTASSIUM - SERUM 4.1 mmol/L (3.5-5.1); PROTEIN - SERUM 5.2 g/dL (6.4-8.2); SODIUM 139 mmol/L (136-145); TROPONIN-I 0.019 ng/mL (0.000-0.060); UREA NITROGEN 20 mg/dL (7-18); eGFR NON AFRICAN AMERICAN > 90 mL/min (90-120)
[2018-06-06 07:16] LABS: PLATELET COUNT 293 10x3/uL (130-400)
[2018-06-07 04:34] LABS: BASOPHILS 0.1 % (0-2); EOSINOPHILS 0 % (0-7); HEMATOCRIT 31.2 % (36.0-48.0); IMMATURE GRANULOCYTES 3.4 % (0-5); LYMPHOCYTES 12.4 % (15-50); MCH 30.6 pg (26.0-34.0); MCHC 32.1 g/dL (31.0-37.0); MCV 95.4 fL (80.0-100.0); MEAN PLATELET VOLUME 10.1 fL (7.4-10.4); MONOCYTES 7.7 % (2-11); NEUTROPHILS 76.4 % (40-80); PLATELET COUNT 303 10x3/uL (130-400); RBC 3.27 10x6/uL (4.00-5.40); RDW 16.5 % (11.5-14.5)
[2018-06-07 05:19] LABS: ALBUMIN 2.1 g/dL (3.4-5.0); ALKALINE PHOSPHATASE 92 U/L (46-116); ALT (SGPT) 19 U/L (10-68); AMYLASE - SERUM 64 U/L (25-115); CALC OSMOLALITY 296 mosm/kg (275-300); CALCIUM 8.2 mg/dL (8.5-10.1); CHLORIDE - SERUM 101 mmol/L (98-107); CKMB 0.7 U/L (0.0-3.6); CREATINE KINASE 13 UL (21-215); CREATININE - SERUM 0.5 mg/dL (0.6-1.3); GLUCOSE 195 mg/dL (74-106); LIPASE 49 U/L (73-393); POTASSIUM - SERUM 3.7 mmol/L (3.5-5.1); PROTEIN - SERUM 5.3 g/dL (6.4-8.2); SODIUM 144 mmol/L (136-145); TROPONIN-I < 0.017 ng/mL (0.000-0.060); UREA NITROGEN 27 mg/dL (7-18); eGFR NON AFRICAN AMERICAN > 90 mL/min (90-120)
[2018-06-09 06:21] LABS: HEMATOCRIT 32.2 % (36.0-48.0); HEMOGLOBIN 10.3 g/dL (12-16); MCH 30.2 pg (26.0-34.0); MCV 94.4 fL (80.0-100.0); MEAN PLATELET VOLUME 9.8 fL (7.4-10.4); PLATELET COUNT 331 10x3/uL (130-400); RBC 3.41 10x6/uL (4.00-5.40); RDW 16.3 % (11.5-14.5); WBC 21.4 10x3/uL (4.8-10.8)
[2018-06-09 06:44] LABS: CALC OSMOLALITY 287 mosm/kg (275-300); CALCIUM 8.4 mg/dL (8.5-10.1); CARBON DIOXIDE 39.9 mmol/L (21.0-32.0); CHLORIDE - SERUM 97 mmol/L (98-107); CREATININE - SERUM 0.6 mg/dL (0.6-1.3); PHOSPHOROUS 3.2 mg/dL (2.5-4.9); SODIUM 142 mmol/L (136-145); UREA NITROGEN 23 mg/dL (7-18); eGFR NON AFRICAN AMERICAN > 90 mL/min (90-120)
[2018-06-09 06:56] LABS: GLUCOSE 124 mg/dL (74-106)
[2018-06-09 07:29] LABS: HYPOCHROMASIA OCC; LYMPHOCYTES 8 % (15-50); MONOCYTES 7 % (2-11); NEUTROPHILS 75 % (40-80); PLATELET ESTIMATE NORMAL; SMUDGE CELLS OCC
[2018-06-10 06:24] LABS: BASOPHILS 0.1 % (0-2); EOSINOPHILS 0 % (0-7); HEMATOCRIT 31.1 % (36.0-48.0); HEMOGLOBIN 9.9 g/dL (12-16); LYMPHOCYTES 5.9 % (15-50); MCH 30.4 pg (26.0-34.0); MCHC 31.8 g/dL (31.0-37.0); MCV 95.4 fL (80.0-100.0); MEAN PLATELET VOLUME 10.2 fL (7.4-10.4); MONOCYTES 3.6 % (2-11); NEUTROPHILS 87.4 % (40-80); PLATELET COUNT 310 10x3/uL (130-400); RBC 3.26 10x6/uL (4.00-5.40); RDW 16.6 % (11.5-14.5)
[2018-06-10 06:25] LABS: WBC 15.5 10x3/uL (4.8-10.8)
[2018-06-10 06:43] LABS: ALBUMIN 2.1 g/dL (3.4-5.0); ALKALINE PHOSPHATASE 82 U/L (46-116); ALT (SGPT) 22 U/L (10-68); AMYLASE - SERUM 157 U/L (25-115); BILIRUBIN - TOTAL 0.44 mg/dL (0.2-1.3); CALCIUM 8.3 mg/dL (8.5-10.1); CHLORIDE - SERUM 94 mmol/L (98-107); CREATININE - SERUM 0.6 mg/dL (0.6-1.3); LIPASE 56 U/L (73-393); PROTEIN - SERUM 5.3 g/dL (6.4-8.2); SODIUM 134 mmol/L (136-145); UREA NITROGEN 20 mg/dL (7-18); eGFR NON AFRICAN AMERICAN > 90 mL/min (90-120)
[2018-06-10 06:51] LABS: CALC OSMOLALITY 290 mosm/kg (275-300); POTASSIUM - SERUM 4.2 mmol/L (3.5-5.1)
[2018-06-10 06:52] LABS: CARBON DIOXIDE 40.5 mmol/L (21.0-32.0); GLUCOSE 466 mg/dL (74-106)
[2018-06-11 06:17] LABS: BASOPHILS 0.1 % (0-2); EOSINOPHILS 0 % (0-7); HEMATOCRIT 30.7 % (36.0-48.0); HEMOGLOBIN 9.9 g/dL (12-16); IMMATURE GRANULOCYTES 1.7 % (0-5); LYMPHOCYTES 7.2 % (15-50); MCH 30.3 pg (26.0-34.0); MCHC 32.2 g/dL (31.0-37.0); MCV 93.9 fL (80.0-100.0); MONOCYTES 6.3 % (2-11); NEUTROPHILS 84.7 % (40-80); PLATELET COUNT 306 10x3/uL (130-400); RBC 3.27 10x6/uL (4.00-5.40); RDW 16.3 % (11.5-14.5); WBC 17.1 10x3/uL (4.8-10.8)
[2018-06-11 06:34] LABS: CALCIUM 9.2 mg/dL (8.5-10.1); CHLORIDE - SERUM 98 mmol/L (98-107); CREATININE - SERUM 0.5 mg/dL (0.6-1.3); POTASSIUM - SERUM 3.8 mmol/L (3.5-5.1); SODIUM 141 mmol/L (136-145); eGFR NON AFRICAN AMERICAN > 90 mL/min (90-120)
[2018-06-11 07:11] LABS: CALC OSMOLALITY 288 mosm/kg (275-300); GLUCOSE 243 mg/dL (74-106); UREA NITROGEN 13 mg/dL (7-18)
[2018-06-11 07:13] LABS: CARBON DIOXIDE 40.2 mmol/L (21.0-32.0)
[2018-06-12 05:54] LABS: BASOPHILS 0.1 % (0-2); EOSINOPHILS 0 % (0-7); HEMOGLOBIN 10.4 g/dL (12-16); IMMATURE GRANULOCYTES 1.5 % (0-5); LYMPHOCYTES 4.9 % (15-50); MCH 30.6 pg (26.0-34.0); MCHC 32.5 g/dL (31.0-37.0); MCV 94.1 fL (80.0-100.0); MEAN PLATELET VOLUME 10.2 fL (7.4-10.4); MONOCYTES 4.4 % (2-11); NEUTROPHILS 89.1 % (40-80); PLATELET COUNT 332 10x3/uL (130-400); RDW 16.2 % (11.5-14.5); WBC 17.6 10x3/uL (4.8-10.8)
[2018-06-12 06:14] LABS: CALCIUM 8.9 mg/dL (8.5-10.1); CHLORIDE - SERUM 91 mmol/L (98-107); POTASSIUM - SERUM 3.5 mmol/L (3.5-5.1); SODIUM 133 mmol/L (136-145); UREA NITROGEN 13 mg/dL (7-18)
[2018-06-12 06:25] LABS: CALC OSMOLALITY 288 mosm/kg (275-300); CREATININE - SERUM 0.7 mg/dL (0.6-1.3); GLUCOSE 507 mg/dL (74-106); eGFR NON AFRICAN AMERICAN > 90 mL/min (90-120)
[2018-06-13 06:38] LABS: BASOPHILS 0.1 % (0-2); EOSINOPHILS 0.1 % (0-7); HEMATOCRIT 28.5 % (36.0-48.0); HEMOGLOBIN 9.2 g/dL (12-16); IMMATURE GRANULOCYTES 2.6 % (0-5); LYMPHOCYTES 16.8 % (15-50); MCH 30.7 pg (26.0-34.0); MCHC 32.3 g/dL (31.0-37.0); MEAN PLATELET VOLUME 9.5 fL (7.4-10.4); MONOCYTES 11.7 % (2-11); NEUTROPHILS 68.7 % (40-80); RDW 16.4 % (11.5-14.5); WBC 18.2 10x3/uL (4.8-10.8)
[2018-06-13 06:41] LABS: PLATELET COUNT 248 10x3/uL (130-400)
[2018-06-13 06:53] LABS: CALC OSMOLALITY 286 mosm/kg (275-300); CHLORIDE - SERUM 94 mmol/L (98-107); CREATININE - SERUM 0.6 mg/dL (0.6-1.3); POTASSIUM - SERUM 3.1 mmol/L (3.5-5.1); SODIUM 133 mmol/L (136-145); UREA NITROGEN 25 mg/dL (7-18); eGFR NON AFRICAN AMERICAN > 90 mL/min (90-120)
[2018-06-13 06:54] LABS: GLUCOSE 403 mg/dL (74-106)
[2018-06-14 11:57] LABS: HEMATOCRIT 29.2 % (36.0-48.0); HEMOGLOBIN 9.6 g/dL (12-16); MCHC 32.9 g/dL (31.0-37.0); MCV 94.2 fL (80.0-100.0); MEAN PLATELET VOLUME 9.8 fL (7.4-10.4); PLATELET COUNT 281 10x3/uL (130-400); RDW 16.6 % (11.5-14.5); WBC 24.6 10x3/uL (4.8-10.8)
[2018-06-14 12:18] LABS: CALC OSMOLALITY 278 mosm/kg (275-300); CALCIUM 8.2 mg/dL (8.5-10.1); CARBON DIOXIDE 34.9 mmol/L (21.0-32.0); CHLORIDE - SERUM 93 mmol/L (98-107); CREATININE - SERUM 0.5 mg/dL (0.6-1.3); GLUCOSE 252 mg/dL (74-106); MAGNESIUM - SERUM 1.2 mg/dL (1.8-2.4); POTASSIUM - SERUM 4.4 mmol/L (3.5-5.1); SODIUM 134 mmol/L (136-145); UREA NITROGEN 18 mg/dL (7-18); eGFR NON AFRICAN AMERICAN > 90 mL/min (90-120)
[2018-06-14 12:36] LABS: HYPOCHROMASIA 2+; LYMPHOCYTES 10 % (15-50); MONOCYTES 5 % (2-11); NEUTROPHILS 85 % (40-80); PLATELET ESTIMATE INCREASED; PLATELET MORPHOLOGY NORMAL PLT MORPH
[2018-06-15 06:24] LABS: BASOPHILS 0.1 % (0-2); EOSINOPHILS 0.1 % (0-7); HEMATOCRIT 26.6 % (36.0-48.0); HEMOGLOBIN 8.6 g/dL (12-16); IMMATURE GRANULOCYTES 3.6 % (0-5); LYMPHOCYTES 21.9 % (15-50); MCH 30.3 pg (26.0-34.0); MCHC 32.3 g/dL (31.0-37.0); MCV 93.7 fL (80.0-100.0); MEAN PLATELET VOLUME 9.4 fL (7.4-10.4); MONOCYTES 8.2 % (2-11); NEUTROPHILS 66.1 % (40-80); PLATELET COUNT 270 10x3/uL (130-400); RBC 2.84 10x6/uL (4.00-5.40); RDW 16.5 % (11.5-14.5); WBC 18.6 10x3/uL (4.8-10.8)
[2018-06-15 06:37] LABS: CALC OSMOLALITY 278 mosm/kg (275-300); CALCIUM 8.1 mg/dL (8.5-10.1); CHLORIDE - SERUM 99 mmol/L (98-107); CREATININE - SERUM 0.5 mg/dL (0.6-1.3); GLUCOSE 158 mg/dL (74-106); MAGNESIUM - SERUM 1.1 mg/dL (1.8-2.4); POTASSIUM - SERUM 3.4 mmol/L (3.5-5.1); SODIUM 137 mmol/L (136-145); UREA NITROGEN 18 mg/dL (7-18); eGFR NON AFRICAN AMERICAN > 90 mL/min (90-120)
[2018-06-15 11:28] LABS: MAGNESIUM - SERUM 2.8 mg/dL (1.8-2.4); POTASSIUM - SERUM 4.2 mmol/L (3.5-5.1)
== END 2018-06-15 15:15 | disposition home health service (06) | DRG 193 ==
LOC: D.ER 21:41 → D.EDHOLD 22:38 → D.ICU 06-02 06:30 → D.M2 06-03 18:08
PROVIDERS: Family Medicine; Family Medicine Adult Medicine; Internal Medicine Nephrology
DX: J18.9 Pneumonia, unspecified organism (principal); J96.21 Acute and chronic respiratory failure with hypoxia; J44.1 Chronic obstructive pulmonary disease with (acute) exacerbation; J44.0 Chronic obstructive pulmonary disease with (acute) lower respiratory infection; I50.32 Chronic diastolic (congestive) heart failure; B37.49 Other urogenital candidiasis; K21.9 Gastro-esophageal reflux disease without esophagitis; E87.6 Hypokalemia; Y95 Nosocomial condition; E11.9 Type 2 diabetes mellitus without complications; J84.10 Pulmonary fibrosis, unspecified; I11.0 Hypertensive heart disease with heart failure; D50.9 Iron deficiency anemia, unspecified; B95.2 Enterococcus as the cause of diseases classified elsewhere; Z16.21 Resistance to vancomycin; I27.20 Pulmonary hypertension, unspecified

== ENCOUNTER 2018-06-17 13:22 | Inpatient (IN) | payer MEDICARE ==
[~2018-06-17] VITALS: Ht 170.2 cm; Wt 72.5 kg
--- NOTE | ~2018-06-17 | MORECARE ---
CASE MANAGEMENT DISCHARGE SUMMARY PATIENT: NINA ODELL UNIT: [id number] ADM DATE: 06/17/18 AGE: 48 : [birth year] SEX: F ROOM/BED: D.T03 AUTHOR: FELICIANO ALVARADO PHYSICIAN: REFERRING PHYSICIAN: ARIELA QUINTEROS MD DATE OF SERVICE: 06/17/18 Discharge Plan Patient Name: NINA ODELL [facility] [facility] 1970 Planned Disposition: Anticipated Discharge Date: Discharge Date: Expected LOS: Initial Reviewer: [email or web address] Initial Review Date: 06/17/2018 Generated: 06/17/18 5:25 pm DCPIA - Discharge Planning Initial Assessment Updated by [email or web address]: Abiola Solis on 06/17/18 4:24 pm * Is the patient Alert and Oriented? Yes * PCP ALBARO * Pharmacy [facility] * Preadmission Environment Home with Family * ADLs Independent * Equipment Bedside Commode CPAP Nebulizer Ostomy Supplies Oxygen Shower Chair Walker * List name and contact numbers for known caregivers / representatives who currently or will assist patient after discharge: FARHEEN, DAUGHTER, * Community resources currently utilized Home Health * Please name any agencies selected above. [facility] * Has this patient been hospitalized within the prior 30 days at any hospital? Yes Patient Name: NINA ODELL Page [id number] at 1625 All edits/amendments must be made on the electronic document DICTATION DATE: 06/17/181623 OIL LEASE BROKER: WIL 06/17/18 1624 RPT#: [id number] DC DATE: STATUS: ADM IN [facility] [address] [place] [address] END OF REPORT
--- NOTE | ~2018-06-17 | MORECARE ---
CASE MANAGEMENT DISCHARGE SUMMARY PATIENT: NINA ODELL UNIT: [id number] ADM DATE: 06/17/18 AGE: 48 : 66 SEX: F ROOM/BED: D.T03 AUTHOR: CHRISTIANO,DOC PHYSICIAN: REFERRING PHYSICIAN: ARIELA QUINTEROS MD DATE OF SERVICE: 06/17/18 Discharge Plan Patient Name: NINA ODELL Facility: [facility]:[place] : 1970 Planned Disposition: Anticipated Discharge Date: Discharge Date: Expected LOS: Initial Reviewer: [email or web address] Initial Review Date: 06/17/2018 Generated: 06/17/18 5:34 pm DCP- Discharge Planning Updated by [email or web address]: Abiola Solis on 06/17/18 3:[address] Patient Name: NINA ODELL Admission Status: ER Accout number: [id number] Admission Date: 06-17-2018 : 1970 Admission Diagnosis: Attending: ARIELA QUINTEROS Current LOS: 1 Anticipated DC Date: Planned Disposition: Primary Insurance: MEDICARE A & B Discharge Planning Comments: CM MET WITH PATIENT WHILE IN THE ER ABOUT DC PLANNING/NEEDS. STATES WAS DC'D TO HOME WITH MARIO SEVERAL DAYS AGO. STATES SOB BECAME WORSE AND NURSE FROM SENT HER TO THE ER. PATIENT DOESN'T KNOW OF ANY OTHER NEEDS AT THIS TIME. CM WILL FOLLOW AND ASSIST NEEDED WITH DC PLANNING/NEEDS. Wood Piler: Abiola Solis DCPIA - Discharge Planning Initial Assessment Updated by [email or web address]: Abiola Solis on 06/17/18 4:24 pm * Is the patient Alert and Oriented? Yes * PCP ALBARO * [facility] * Preadmission Environment Home with Family * ADLs Independent * Equipment Bedside Commode CPAP Nebulizer Ostomy Supplies Oxygen Shower Chair Walker * List name and contact numbers for known caregivers / representatives who currently or will assist patient after discharge: FARHEEN, DAUGHTER, * Community resources currently utilized Home Health * Please name any agencies selected above. [facility] * Has this patient been hospitalized within the prior 30 days at any hospital? Yes Last DP export: 06/17/18 3:25 Patient Name: NINA ODELL Page [id number] at 1635 All edits/amendments must be made on the electronic document DICTATION DATE: 06/17/181633 FORM [address]AL [address] FORMS: WIL 06/17/181633 RPT#: [id number] DC DATE: STATUS: ADM IN [facility] [address] [place] [address] END OF REPORT
--- NOTE | ~2018-06-17 | CN ---
PATIENT NAME:NINA ODELL MEDICAL RECORD: [id number] : 66 LOCATION:D. D.2135 ADMIT DATE: 06/17/18 ACCOUNT: [id number] CONSULTING PHYSICIAN: NAHEED PEDERSON MD REFERRING PHYSICIAN: ARIELA QUINTEROS MD DATE OF CONSULTATION: 06/18/2018 CONSULT REQUESTING PHYSICIAN: Joshua Chan MD REASON FOR CONSULTATION: Acute exacerbation of COPD, hgypl-gy-zzszvol hypoxic respiratory failure. HISTORY OF PRESENT ILLNESS: Ms. Odell is a 48-year-old -[place] female, very well known to us. The patient was just discharged home a couple of days ago. Readmitted yesterday with worsening shortness of breath, coughing, and wheezing. Cough productive with yellow-green color sputum production. Denies any fever or chills, no night sweats. REVIEW OF SYSTEMS: As in history of present illness. PAST MEDICAL HISTORY: 1. COPD. 2. Chronic hypoxic respiratory failure. 3. Pulmonary fibrosis. 4. Mixed connective tissue disorder. 5. History of rheumatoid arthritis. 6. History of gastroesophageal reflux disease. 7. History of chronic pancreatitis. 8. History of diverticulosis and bowel obstruction. PAST SURGICAL HISTORY: She has a colostomy, this has been reversed. ALLERGIES: SHE IS ALLERGIC TO LATEX. MEDICATIONS: [employer] is reviewed. PERSONAL AND SOCIAL HISTORY: The patient is an ex-smoker. She is a nondrinker. FAMILY HISTORY: Noncontributory. PHYSICAL EXAMINATION: GENERAL: The patient is lying comfortably in bed. She is not in acute distress. VITAL SIGNS: The blood pressure is 119/64, pulse is 75, respirations 20, temperature is 97.3, SpO2 is 96% on 5 liters nasal cannula. HEENT: Conjunctivae are pink. Sclerae nonicteric. NECK: Supple, no JVD. CHEST: There are bilateral crackles, wheeze on forceful expiration. HEART: Rhythm regular, normal sound, no murmur. ABDOMEN: Soft, bowel sounds present. No hepatosplenomegaly. RECTAL: Deferred. EXTREMITIES: No cyanosis, no clubbing, no pedal edema. CENTRAL NERVOUS SYSTEM: The patient is awake and alert. There are no obvious cranial nerve abnormality. The gait was not tested. CONSULT REPORT [id number] NINA ODELL IMAGING: Chest radiograph: There are increased interstitial marking bilaterally. LABORATORY DATA: CBC: The WBC is 16.9, hemoglobin 8.8, hematocrit 26.9, the platelet count 273. Chemistry: Sodium 139, potassium 4.7, BUN is 11, creatinine 0.6. ABG: The pH is 7.47, pCO2 is 43.2, the pO2 was 96, bicarbonate is 32. This was done on the 6 liter nasal cannula. IMPRESSION: 1. Faqkt-in-qnarmpj hypoxic respiratory failure. 2. Pneumonia, bilateral, most likely hospital-acquired pneumonia with the patient recent hospitalization. 3. Leukocytosis. 4. Acute exacerbation of COPD. 5. Pulmonary fibrosis. 6. Mixed connective tissue disorder. 7. History of chronic pancreatitis. 8. Gastroesophageal reflux disease. RECOMMENDATION: 1. Discontinue prednisone, start methylprednisolone IV. 2. Empiric vancomycin, cefepime, and Levaquin to call for MRSA as well as Gram-negative rods. 3. Albuterol/ipratropium nebulizer. 4. Brovana nebulizer. 5. Supplemental oxygen. 6. Pain control. 7. Follow up labs and chest radiograph. Dr. Chan, thank you for involving me in the care of Ms. Odell. TRANSINT:[id number] Voice Confirmation ID: [id number] DOCUMENT ID: [id number] NAHEED PEDERSON MD CC: [id number] DICTATION DATE: 06/18/18 155 MAINTENANCE MECHANIC SUPERVISOR: 06/18/18 1743 ADM IN [facility] [address] [place] [address]
--- NOTE | ~2018-06-17 | MORECARE ---
CASE MANAGEMENT DISCHARGE SUMMARY PATIENT: NINA ODELL UNIT: [id number] ADM DATE: 06/17/18 AGE: 48 : 66 SEX: F ROOM/BED: D.1618 AUTHOR: CHRISTIANODOC PHYSICIAN: REFERRING PHYSICIAN: ARIELA QUINTEROS MD DATE OF SERVICE: 06/22/18 Discharge Plan Patient Name: NINA ODELL Facility: [facility]:[place] : 1970 Planned Disposition: Hospice Home Anticipated Discharge Date: 06/22/18 Discharge Date: Expected LOS: 5 Initial Reviewer: [id number] Initial Review Date: 06/17/2018 Generated: 06/22/18 5:07 pm Comments DCP- Discharge Planning Updated by [id number]: Lizandro Petit on 06/22/18 3:[address] Patient Name: NINA ODELL Encounter No: [id number] : 1970 Primary Insurance: MEDICARE A & B Anticipated DC Date: 06-22-2018 Planned Disposition: Hospice Home External Planned Provider: [facility] DCP follow-up note: CM RECEIVED DISCHARGE ORDER, FAXED ORDER AND DISCHARGE INSTRUCTIONS TO [facility] AT [phone]. CM SPOKE TO PT IN ROOM WHO REPORTS SHE IS IN AGREEMENT WITH DISCHARGE HOME TODAY WITH HOSPICE AND NEEDS AMBULANCE TRANSPORTATION. IMPORTANT MESSAGE FROM MEDICARE PROVIDED AND EXPLAINED. BEDSIDE NURSE NOTIFIED. FAMILY IN ROOM AND REPORTS FAMILY HOME TO RECEIVE PT. PT TO TRANSPORT HOME VIA AMBULANCE, [facility] TO ADMIT UP PT'S ARRIVAL AT HOME. TIAGO Joy DCP- Discharge Planning Updated by [id number]: Lizandro Petit on 06/21/18 4:[address] Patient Name: NINA ODELL Encounter No: [id number] : 1970 Primary Insurance: MEDICARE A & B Anticipated DC Date: 06-22-2018 Planned Disposition: Hospice Home External Planned Provider: [facility] DCP follow-up note: CM RECEIVED CALL FROM MIHAELA OF [facility], , WHO REPORTS RECEIVING REFERRAL FROM [facility] PT HAD EXPRESSED INTEREST IN HOME HOSPICE; PT'S DAUGHTER HAS NOT BEEN IN AGREEMENT IN THE PAST BUT IS NOW. [facility] PLANS TO EVALUATE PT THIS EVENING FOR HOME HOSPICE AT PT AND FAMILY REQUEST. CM SPOKE TO PT IN ROOM WHO IS IN AGREEMENT WITH HOSPICE REFERRAL AND MEETING TODAY, CM OBTAINED ORDER. CM OBTAINED ORDER, FAXED ORDER AND FACE SHEET TO [facility] AT [phone]. CM PRINTED REFERRAL FOR HOSPICE NURSE TO DIESEL SCOOP OPERATOR, LEFT ON CM STATION. CM WAITING ON HOSPICE EVALUATION BY [facility] FOR HOME SERVICES WELL PT AND FAMILY DECISION. Lizandro Petit, CASE MANAGEMENT DCP- Discharge Planning Updated by [id number]: Lizandro Petit on 06/18/18 4:[address] Patient Name: NINA ODELL Encounter No: [id number] : 1970 Primary Insurance: MEDICARE A & B Anticipated DC Date: Planned Disposition: Inpatient Rehab External Planned Provider: [facility] DCP follow-up note: CM RECEIVED INPATIENT REHAB PRESCREENING ORDER AND ORDER FOR INPATIENT VS CORRECTION REHAB. CM MET WITH PT IN ROOM, DISCUSSED AVAILABILITY OF REHAB, PROVIDERS AND LOCATIONS. PT STATES SHE IS NOT GOING TO A CORRECTION REHAB. PT INITIALLY STATES SHE HAS REHAB ARRANGED AT HOME WITH [facility]. CM POINTED OUT THAT PT WAS STABLE FOR DISCHARGE HOME FROM THE EMERGENCY ROOM LAST NIGHT BUT PT AND FAMILY DID NOT FEEL PT COULD DISCHARGE HOME. PT STATES SHE WILL CONSIDER REHAB "HERE ONLY". CM EDUCATED PT ON IMPORTANTANCE OF PARTICIPATING WITH EACH THERAPY SESSION, PT STATES SHE "KNOWS WHAT IS GOING ON" AND WILL DO WHAT SHE NEEDS TO. PT ASKED CM TO GET HER THE FISH THAT SHE ORDERED FOR LUNCH THAT WAS NOT ON HER LUNCH TRAY. CM CALLED AND REQUESTED ASSISTANCE OF MANAGER SUPPLY CHAIN PLANNINGMYNOR. CM WAITING INPATIENT REHAB PRESCREENING WELL ADMISSION DETERMINATION FROM [facility] INPATIENT REH[facility]. Lizandro Petit, CASE MANGEMENT DCP- Discharge Planning Updated by [id number]: Abiola Solis on 06/17/18 3:[address] Patient Name: NINA ODELL Admission Status: ER Accout number: [id number] Admission Date: 06-17-2018 : 1970 Admission Diagnosis: Attending: ARIELA QUINTEROS Current LOS: 1 Anticipated DC Date: Planned Disposition: Primary Insurance: MEDICARE A & B Discharge Planning Comments: CM MET WITH PATIENT WHILE IN THE ER ABOUT DC PLANNING/NEEDS. STATES WAS DC'D TO HOME WITH [facility] SEVERAL DAYS AGO. STATES SOB BECAME WORSE AND NURSE FROM SENT HER TO THE ER. PATIENT DOESN'T KNOW OF ANY OTHER NEEDS AT THIS TIME. CM WILL FOLLOW AND ASSIST NEEDED WITH DC PLANNING/NEEDS. Chair Post Machine Operator: Abiola Solis DCPIA - Discharge Planning Initial Assessment Updated by [id number]: Abiola Solis on 06/17/18 4:24 pm * Is the patient Alert and Oriented? Yes * PCP ALBARO * Pharmacy [facility] * Preadmission Environment Home with Family * ADLs Independent * Equipment Bedside Commode CPAP Nebulizer Ostomy Supplies Oxygen Shower Chair Walker * List name and contact numbers for known caregivers / representatives who currently or will assist patient after discharge: FARHEEN, DAUGHTER, * Community resources currently utilized Home Health * Please name any agencies selected above. [facility] * Has this patient been hospitalized within the prior 30 days at any hospital? Yes Coverage Notice Reviewer: [id number] Wyatt Petit Notice Issued Date-Time: 06/22/2018 13:10 Notice Type: IM Discharge Notice Notice Delivered To: Patient Relationship to Patient: Optometry Doctor Name: Delivery Method: HAND - Hand Delivered Jennifer Days: Prior Verbal Notification: Recipient Understood Notice: Yes Recipient Signature: Yes Med Rec Note Co-signed by Attending: Coverage Notice Comment: Last DP export: 06/22/18 2:39 Patient Name: NINA ODELL Page 44598 at 1607 All edits/amendments must be made on the electronic document DICTATION DATE: 06/22/181606 NEWSPAPER DISTRIBUTOR SUPERVISOR: WIL 06/22/18 160 RPT#: [id number] DC DATE: STATUS: ADM IN [facility] [address] [place] [address] END OF REPORT
--- NOTE | ~2018-06-17 | MORECARE ---
CASE MANAGEMENT DISCHARGE SUMMARY PATIENT: NINA ODELL UNIT: [id number] ADM DATE: 06/17/18 AGE: 48 : 66 SEX: F ROOM/BED: D.1597 AUTHOR: FELICIANO ALVARADO PHYSICIAN: REFERRING PHYSICIAN: ARIELA QUINTEROS MD DATE OF SERVICE: 06/22/18 Discharge Plan Patient Name: NINA ODELL Facility: [facility]:[place] : 1970 Planned Disposition: Hospice Home Anticipated Discharge Date: 06/22/18 Discharge Date: Expected LOS: 5 Initial Reviewer: [id number] Initial Review Date: 06/17/2018 Generated: 06/22/18 6:43 pm Comments DCP- Discharge Planning Updated by [id number]: Lizandro Petit on 06/22/18 4:[address] Patient Name: NINA ODELL Encounter No: [id number] : 1970 Primary Insurance: MEDICARE A & B Anticipated DC Date: 06-22-2018 Planned Disposition: Hospice Home External Planned Provider: [facility] DCP follow-up note: CM RECEIVED DISCHARGE ORDER, FAXED ORDER AND DISCHARGE INSTRUCTIONS TO [facility] AT [phone]. CM SPOKE TO PT IN ROOM WHO REPORTS SHE IS IN AGREEMENT WITH DISCHARGE HOME TODAY WITH HOSPICE AND NEEDS AMBULANCE TRANSPORTATION. IMPORTANT MESSAGE FROM MEDICARE PROVIDED AND EXPLAINED. BEDSIDE NURSE NOTIFIED. FAMILY IN ROOM AND REPORTS FAMILY HOME TO RECEIVE PT. PT TO TRANSPORT HOME VIA AMBULANCE, [facility] TO ADMIT UP PT'S ARRIVAL AT HOME. Lizandro Petit, CASE MANAGEMENT Appended by Lizandro Petit on 06/22/2018 17:35 REAGENT TENDER: CM CALLED AND NOTIFIED [facility] SOLE LAYER NURSE THAT PT WAS LEAVING VIA AMBULANCE. HOSPICE TO MEET PT AT HOME FOR HOSPICE ADMIT. TIAGO ARIAS DCP- Discharge Planning Updated by [id number]: Lizandro Petit on 06/21/18 4:[address] Patient Name: NINA ODELL Encounter No: [id number] : 1970 Primary Insurance: MEDICARE A & B Anticipated DC Date: 06-22-2018 Planned Disposition: Hospice Home External Planned Provider: [facility] DCP follow-up note: CM RECEIVED CALL FROM MIHAELA OF [facility], , WHO REPORTS RECEIVING REFERRAL FROM [facility] PT HAD EXPRESSED INTEREST IN HOME HOSPICE; PT'S DAUGHTER HAS NOT BEEN IN AGREEMENT IN THE PAST BUT IS NOW. [facility] PLANS TO EVALUATE PT THIS EVENING FOR HOME HOSPICE AT PT AND FAMILY REQUEST. CM SPOKE TO PT IN ROOM WHO IS IN AGREEMENT WITH HOSPICE REFERRAL AND MEETING TODAY, CM OBTAINED ORDER. CM OBTAINED ORDER, FAXED ORDER AND FACE SHEET TO [facility] AT [phone]. CM PRINTED REFERRAL FOR HOSPICE NURSE TO ASSISTANT PROFESSOR, LEFT ON CM STATION. CM WAITING ON HOSPICE EVALUATION BY [facility] FOR HOME SERVICES WELL PT AND FAMILY DECISION. Lizandro Petit, CASE MANAGEMENT DCP- Discharge Planning Updated by [id number]: Lizandro Petit on 06/18/18 4:[address] Patient Name: NINA ODELL Encounter No: [id number] : 1970 Primary Insurance: MEDICARE A & B Anticipated DC Date: Planned Disposition: Inpatient Rehab External Planned Provider: [facility] DCP follow-up note: CM RECEIVED INPATIENT REHAB PRESCREENING ORDER AND ORDER FOR INPATIENT VS SNF REHAB. CM MET WITH PT IN ROOM, DISCUSSED AVAILABILITY OF REHAB, PROVIDERS AND LOCATIONS. PT STATES SHE IS NOT GOING TO A SNF REHAB. PT INITIALLY STATES SHE HAS REHAB ARRANGED AT HOME WITH [facility]. CM POINTED OUT THAT PT WAS STABLE FOR DISCHARGE HOME FROM THE EMERGENCY ROOM LAST NIGHT BUT PT AND FAMILY DID NOT FEEL PT COULD DISCHARGE HOME. PT STATES SHE WILL CONSIDER REHAB "HERE ONLY". CM EDUCATED PT ON IMPORTANTANCE OF PARTICIPATING WITH EACH THERAPY SESSION, PT STATES SHE "KNOWS WHAT IS GOING ON" AND WILL DO WHAT SHE NEEDS TO. PT ASKED CM TO GET HER THE FISH THAT SHE ORDERED FOR LUNCH THAT WAS NOT ON HER LUNCH TRAY. CM CALLED AND REQUESTED ASSISTANCE OF PATCHER WOOD WELDERMYNRO. CM WAITING INPATIENT REHAB PRESCREENING WELL ADMISSION DETERMINATION FROM [facility] INPATIENT REHAB. Lizandro Petit, CASE MANGEMENT DCP- Discharge Planning Updated by [id number]: Abiola Solis on 06/17/18 3:[address] Patient Name: NINA ODELL Admission Status: ER Accout number: [id number] Admission Date: 06-17-2018 : 1970 Admission Diagnosis: Attending: ARIELA QUINTEROS Current LOS: 1 Anticipated DC Date: Planned Disposition: Primary Insurance: MEDICARE A & B Discharge Planning Comments: CM MET WITH PATIENT WHILE IN THE ER ABOUT DC PLANNING/NEEDS. STATES WAS DC'D TO HOME WITH [facility] SEVERAL DAYS AGO. STATES SOB BECAME WORSE AND NURSE FROM SENT HER TO THE ER. PATIENT DOESN'T KNOW OF ANY OTHER NEEDS AT THIS TIME. CM WILL FOLLOW AND ASSIST NEEDED WITH DC PLANNING/NEEDS. Commercial Decorator: Abiola Solis DCPIA - Discharge Planning Initial Assessment Updated by [id number]: Abiola Solis on 06/17/18 4:24 pm * Is the patient Alert and Oriented? Yes * PCP ALBARO * Pharmacy [facility] * Preadmission Environment Home with Family * ADLs Independent * Equipment Bedside Commode CPAP Nebulizer Ostomy Supplies Oxygen Shower Chair Walker * List name and contact numbers for known caregivers / representatives who currently or will assist patient after discharge: MILKA ZHONG, * Community resources currently utilized Home Health * Please name any agencies selected above. [facility] * Has this patient been hospitalized within the prior 30 days at any hospital? Yes Coverage Notice Reviewer: [id number] Wyatt Petit Notice Issued Date-Time: 06/22/2018 13:10 Notice Type: IM Discharge Notice Notice Delivered To: Patient Relationship to Patient: Sergeant At Arms Name: Delivery Method: HAND - Hand Delivered Jennifer Days: Prior Verbal Notification: Recipient Understood Notice: Yes Recipient Signature: Yes Med Rec Note Co-signed by Attending: Coverage Notice Comment: Last DP export: 06/22/18 3:07 Patient Name: NINA ODELL Page [phone] at 1743 All edits/amendments must be made on the electronic document DICTATION DATE: 06/22/181741 PATENT EXAMINER: WIL 06/22/181741 RPT#: [id number] DC DATE: STATUS: ADM IN [facility] [address] [place] [address] END OF REPORT
--- NOTE | ~2018-06-17 | MORECARE ---
CASE MANAGEMENT DISCHARGE SUMMARY PATIENT: NINA ODELL UNIT: [id number] ADM DATE: 06/17/18 AGE: 48 : 66 SEX: F ROOM/BED: D.2935 AUTHOR: FELICIANO ALVARADO PHYSICIAN: REFERRING PHYSICIAN: ARIELA QUINTEROS MD DATE OF SERVICE: 06/18/18 Discharge Plan Patient Name: NINA ODELL Facility: [facility]:[place] : 1970 Planned Disposition: Inpatient Rehab Anticipated Discharge Date: Discharge Date: Expected LOS: Initial Reviewer: [id number] Initial Review Date: 06/17/2018 Generated: 06/18/18 6:45 pm Comments DCP- Discharge Planning Updated by [id number]: Lizandro Petit on 06/18/18 4:[address] Patient Name: NINA ODELL Encounter No: [id number] : 1970 Primary Insurance: MEDICARE A & B Anticipated DC Date: Planned Disposition: Inpatient Rehab External Planned Provider: [facility] DCP follow-up note: CM RECEIVED INPATIENT REHAB PRESCREENING ORDER AND ORDER FOR INPATIENT VS CARE HOME REHAB. CM MET WITH PT IN ROOM, DISCUSSED AVAILABILITY OF REHAB, PROVIDERS AND LOCATIONS. PT STATES SHE IS NOT GOING TO A CARE HOME REHAB. PT INITIALLY STATES SHE HAS REHAB ARRANGED AT HOME WITH [facility]. CM POINTED OUT THAT PT WAS STABLE FOR DISCHARGE HOME FROM THE EMERGENCY ROOM LAST NIGHT BUT PT AND FAMILY DID NOT FEEL PT COULD DISCHARGE HOME. PT STATES SHE WILL CONSIDER REHAB "HERE ONLY". CM EDUCATED PT ON IMPORTANTANCE OF PARTICIPATING WITH EACH THERAPY SESSION, PT STATES SHE "KNOWS WHAT IS GOING ON" AND WILL DO WHAT SHE NEEDS TO. PT ASKED CM TO GET HER THE FISH THAT SHE ORDERED FOR LUNCH THAT WAS NOT ON HER LUNCH TRAY. CM CALLED AND REQUESTED ASSISTANCE OF ORCHARD MANAGER, MYNOR. CM WAITING INPATIENT REHAB PRESCREENING WELL ADMISSION DETERMINATION FROM [facility] INPATIENT REH[facility]. TIAGO Joy DCP- Discharge Planning Updated by [id number]: Abiola Solis on 06/17/18 3:[address] Patient Name: NINA ODELL Admission Status: ER Accout number: [id number] Admission Date: 06-17-2018 : 1970 Admission Diagnosis: Attending: ARIELA QUINTEROS Current LOS: 1 Anticipated DC Date: Planned Disposition: Primary Insurance: MEDICARE A & B Discharge Planning Comments: CM MET WITH PATIENT WHILE IN THE ER ABOUT DC PLANNING/NEEDS. STATES WAS DC'D TO HOME WITH [facility] SEVERAL DAYS AGO. STATES SOB BECAME WORSE AND NURSE FROM SENT HER TO THE ER. PATIENT DOESN'T KNOW OF ANY OTHER NEEDS AT THIS TIME. CM WILL FOLLOW AND ASSIST NEEDED WITH DC PLANNING/NEEDS. Precision Optics Technician: Abiola Solis DCPIA - Discharge Planning Initial Assessment Updated by [id number]: Abiola Solis on 06/17/18 4:24 pm * Is the patient Alert and Oriented? Yes * PCP ALBARO * Pharmacy [facility] * Preadmission Environment Home with Family * ADLs Independent * Equipment Bedside Commode CPAP Nebulizer Ostomy Supplies Oxygen Shower Chair Walker * List name and contact numbers for known caregivers / representatives who currently or will assist patient after discharge: FARHEEN, DAUGHTER, * Community resources currently utilized Home Health * Please name any agencies selected above. [facility] * Has this patient been hospitalized within the prior 30 days at any hospital? Yes Last DP export: 06/17/18 3:34 Patient Name: NINA ODELL Page 57361 at 1746 All edits/amendments must be made on the electronic document DICTATION DATE: 06/18/181744 FIELD APPLICATION ENGINEER: WIL 06/18/181744 RPT#: [id number] DC DATE: STATUS: ADM IN [facility] [address] [place] [address] END OF REPORT
--- NOTE | ~2018-06-17 | MORECARE ---
CASE MANAGEMENT DISCHARGE SUMMARY PATIENT: NINA ODELL UNIT: [id number] ADM DATE: 06/17/18 AGE: 48 : 66 SEX: F ROOM/BED: D.7455 AUTHOR: CHRISTIANO,DOC PHYSICIAN: REFERRING PHYSICIAN: ARIELA QUINTEROS MD DATE OF SERVICE: 06/22/18 Discharge Plan Patient Name: NINA ODELL Facility: [facility]:[place] : 1970 Planned Disposition: Hospice Home Anticipated Discharge Date: 06/22/18 Discharge Date: Expected LOS: 5 Initial Reviewer: [id number] Initial Review Date: 06/17/2018 Generated: 06/22/18 4:39 pm Comments DCP- Discharge Planning Updated by [id number]: Lizandro Petit on 06/21/18 4:[address] Patient Name: NINA ODELL Encounter No: [id number] : 1970 Primary Insurance: MEDICARE A & B Anticipated DC Date: 06-22-2018 Planned Disposition: Hospice Home External Planned Provider: [facility] DCP follow-up note: CM RECEIVED CALL FROM MIHAELA OF [facility], , WHO REPORTS RECEIVING REFERRAL FROM [facility] PT HAD EXPRESSED INTEREST IN HOME HOSPICE; PT'S DAUGHTER HAS NOT BEEN IN AGREEMENT IN THE PAST BUT IS NOW. [facility] PLANS TO EVALUATE PT THIS EVENING FOR HOME HOSPICE AT PT AND FAMILY REQUEST. CM SPOKE TO PT IN ROOM WHO IS IN AGREEMENT WITH HOSPICE REFERRAL AND MEETING TODAY, CM OBTAINED ORDER. CM OBTAINED ORDER, FAXED ORDER AND FACE SHEET TO [facility] AT [phone]. CM PRINTED REFERRAL FOR HOSPICE NURSE TO DITCH DIGGER, LEFT ON CM STATION. CM WAITING ON HOSPICE EVALUATION BY [facility] FOR HOME SERVICES WELL PT AND FAMILY DECISION. Lizandro Petit CASE WIL DCP- Discharge Planning Updated by [id number]: Lizandro Petit on 06/18/18 4:[address] Patient Name: NINA ODELL Encounter No: [id number] : 1970 Primary Insurance: MEDICARE A & B Anticipated DC Date: Planned Disposition: Inpatient Rehab External Planned Provider: [facility]PAT[facility] DCP follow-up note: CM RECEIVED INPATIENT REHAB PRESCREENING ORDER AND ORDER FOR INPATIENT VS PENITENTIARY REHAB. CM MET WITH PT IN ROOM, DISCUSSED AVAILABILITY OF REHAB, PROVIDERS AND LOCATIONS. PT STATES SHE IS NOT GOING TO A PENITENTIARY REHAB. PT INITIALLY STATES SHE HAS REHAB ARRANGED AT HOME WITH [facility]READ[facility]. CM POINTED OUT THAT PT WAS STABLE FOR DISCHARGE HOME FROM THE EMERGENCY ROOM LAST NIGHT BUT PT AND FAMILY DID NOT FEEL PT COULD DISCHARGE HOME. PT STATES SHE WILL CONSIDER REHAB "HERE ONLY". CM EDUCATED PT ON IMPORTANTANCE OF PARTICIPATING WITH EACH THERAPY SESSION, PT STATES SHE "KNOWS WHAT IS GOING ON" AND WILL DO WHAT SHE NEEDS TO. PT ASKED CM TO GET HER THE FISH THAT SHE ORDERED FOR LUNCH THAT WAS NOT ON HER LUNCH TRAY. CM CALLED AND REQUESTED ASSISTANCE OF SECRETARY TO THE VICE PRESIDENTMYNOR. CM WAITING INPATIENT REHAB PRESCREENING WELL ADMISSION DETERMINATION FROM [facility] INPATIENT REHAB. TIAGO Joy DCP- Discharge Planning Updated by [id number]: Abiola Solis on 06/17/18 3:[address] Patient Name: NINA ODELL Admission Status: ER Accout number: [id number] Admission Date: 06-17-2018 : 1970 Admission Diagnosis: Attending: ARIELA QUINTEROS Current LOS: 1 Anticipated DC Date: Planned Disposition: Primary Insurance: MEDICARE A & B Discharge Planning Comments: CM MET WITH PATIENT WHILE IN THE ER ABOUT DC PLANNING/NEEDS. STATES WAS DC'D TO HOME WITH [facility] SEVERAL DAYS AGO. STATES SOB BECAME WORSE AND NURSE FROM SENT HER TO THE ER. PATIENT DOESN'T KNOW OF ANY OTHER NEEDS AT THIS TIME. CM WILL FOLLOW AND ASSIST NEEDED WITH DC PLANNING/NEEDS. Smelter Operator: Abiola Solis DCPIA - Discharge Planning Initial Assessment Updated by [id number]: Abiola Solis on 06/17/18 4:24 pm * Is the patient Alert and Oriented? Yes * PCP ALBARO * Pharmacy [facility] * Preadmission Environment Home with Family * ADLs Independent * Equipment Bedside Commode CPAP Nebulizer Ostomy Supplies Oxygen Shower Chair Walker * List name and contact numbers for known caregivers / representatives who currently or will assist patient after discharge: FARHEEN, DAUGHTER, * Community resources currently utilized Home Health * Please name any agencies selected above. [facility] * Has this patient been hospitalized within the prior 30 days at any hospital? Yes Coverage Notice Reviewer: [id number] Wyatt Petit Notice Issued Date-Time: 06/22/2018 13:10 Notice Type: IM Discharge Notice Notice Delivered To: Patient Relationship to Patient: Senior Sustainability Consultant Name: Delivery Method: HAND - Hand Delivered Jennifer Days: Prior Verbal Notification: Recipient Understood Notice: Yes Recipient Signature: Yes Med Rec Note Co-signed by Attending: Coverage Notice Comment: Last DP export: 06/21/18 4:00 Patient Name: NINA ODELL Page 50607 at 1539 All edits/amendments must be made on the electronic document DICTATION DATE: 06/22/18 153 RELATIONSHIP ASSOCIATE: WIL 06/22/18 1539 RPT#: [id number] DC DATE: STATUS: ADM IN [facility] [address] [place] [address] END OF REPORT
--- NOTE | ~2018-06-17 | MORECARE ---
CASE MANAGEMENT DISCHARGE SUMMARY PATIENT: NINA ODELL UNIT: [id number] ADM DATE: 06/17/18 AGE: 48 : [birth year] SEX: F ROOM/BED: D.2135 AUTHOR: CHRISTIANO,DOC PHYSICIAN: REFERRING PHYSICIAN: ARIELA QUINTEROS MD DATE OF SERVICE: 06/21/18 Discharge Plan Patient Name: NINA ODELL Facility: [facility]:[place] : 1970 Planned Disposition: Hospice Home Anticipated Discharge Date: 06/22/18 Discharge Date: Expected LOS: 5 Initial Reviewer: [email or web address] Initial Review Date: 06/17/2018 Generated: 06/21/18 6:00 pm Comments DCP- Discharge Planning Updated by [email or web address]: Lizandro Petit on 06/21/18 4:[address] Patient Name: NINA ODELL Encounter No: [id number] : 1970 Primary Insurance: MEDICARE A & B Anticipated DC Date: 06-22-2018 Planned Disposition: Hospice Home External Planned Provider: [facility] DCP follow-up note: CM RECEIVED CALL FROM MIHAELA OF [facility], , WHO REPORTS RECEIVING REFERRAL FROM [facility] PT HAD EXPRESSED INTEREST IN HOME HOSPICE; PT'S DAUGHTER HAS NOT BEEN IN AGREEMENT IN THE PAST BUT IS NOW. JUNCOS PLANS TO EVALUATE PT THIS EVENING FOR HOME HOSPICE AT PT AND FAMILY REQUEST. CM SPOKE TO PT IN ROOM WHO IS IN AGREEMENT WITH HOSPICE REFERRAL AND MEETING TODAY, CM OBTAINED ORDER. CM OBTAINED ORDER, FAXED ORDER AND FACE SHEET TO [facility] AT [phone]. CM PRINTED REFERRAL FOR HOSPICE NURSE TO EARLY CHILDHOOD ASSOCIATE, LEFT ON CM STATION. CM WAITING ON HOSPICE EVALUATION BY [facility] FOR HOME SERVICES WELL PT AND FAMILY DECISION. Lizandro Petit CASE WIL DCP- Discharge Planning Updated by [email or web address]: Lizandro Petit on 06/18/18 4:[address] Patient Name: NINA ODELL Encounter No: [id number] : 1970 Primary Insurance: MEDICARE A & B Anticipated DC Date: Planned Disposition: Inpatient Rehab External Planned Provider: [facility] DCP follow-up note: CM RECEIVED INPATIENT REHAB PRESCREENING ORDER AND ORDER FOR INPATIENT VS CORRECTION REHAB. CM MET WITH PT IN ROOM, DISCUSSED AVAILABILITY OF REHAB, PROVIDERS AND LOCATIONS. PT STATES SHE IS NOT GOING TO A CORRECTION REHAB. PT INITIALLY STATES SHE HAS REHAB ARRANGED AT HOME WITH MARIO ALREADY. CM POINTED OUT THAT PT WAS STABLE FOR DISCHARGE HOME FROM THE EMERGENCY ROOM LAST NIGHT BUT PT AND FAMILY DID NOT FEEL PT COULD DISCHARGE HOME. PT STATES SHE WILL CONSIDER REHAB "HERE ONLY". CM EDUCATED PT ON IMPORTANTANCE OF PARTICIPATING WITH EACH THERAPY SESSION, PT STATES SHE "KNOWS WHAT IS GOING ON" AND WILL DO WHAT SHE NEEDS TO. PT ASKED CM TO GET HER THE FISH THAT SHE ORDERED FOR LUNCH THAT WAS NOT ON HER LUNCH TRAY. CM CALLED AND REQUESTED ASSISTANCE OF PIN DRAFTER OPERATORMYNOR. CM WAITING INPATIENT REHAB PRESCREENING WELL ADMISSION DETERMINATION FROM [facility]. TIAGO Joy DCP- Discharge Planning Updated by [email or web address]: Abiola Solis on 06/17/18 3:[address] Patient Name: NINA ODELL Admission Status: ER Accout number: [id number] Admission Date: 06-17-2018 : 1970 Admission Diagnosis: Attending: ARIELA QUINTEROS Current LOS: 1 Anticipated DC Date: Planned Disposition: Primary Insurance: MEDICARE A & B Discharge Planning Comments: CM MET WITH PATIENT WHILE IN THE ER ABOUT DC PLANNING/NEEDS. STATES WAS DC'D TO HOME WITH MARIO SEVERAL DAYS AGO. STATES SOB BECAME WORSE AND NURSE FROM SENT HER TO THE ER. PATIENT DOESN'T KNOW OF ANY OTHER NEEDS AT THIS TIME. CM WILL FOLLOW AND ASSIST NEEDED WITH DC PLANNING/NEEDS. Coil Winder Hand: Abiola Solis DCPIA - Discharge Planning Initial Assessment Updated by [email or web address]: Abiola Solis on 06/17/18 4:24 pm * Is the patient Alert and Oriented? Yes * PCP [facility] * Pharmacy [facility] * Preadmission Environment Home with Family * ADLs Independent * Equipment Bedside Commode CPAP Nebulizer Ostomy Supplies Oxygen Shower Chair Walker * List name and contact numbers for known caregivers / representatives who currently or will assist patient after discharge: FARHEEN, DAUGHTER, * Community resources currently utilized Home Health * Please name any agencies selected above. [facility] * Has this patient been hospitalized within the prior 30 days at any hospital? Yes External Providers External Provider[facility] Next Contact Date: 06/21/2018 Service Request Date: Service Type: Resolution: Reviewer: Comments: Last DP export: 06/18/18 4:45 Patient Name: NINA ODELL Page [id number] at 1700 All edits/amendments must be made on the electronic document DICTATION DATE: 06/21/181658 RECEIVING MANAGER: WIL 06/21/181658 RPT#: [id number] DC DATE: STATUS: ADM IN [facility] [address] [place] [address] END OF REPORT
[~2018-06-17 13:22] MED LIST changes: +BACTRIM DS PO; +EMLA CREAM 30 G30 G1 TOPICAL; +K-DUR20 MEQ PO; +Lantus Solostar PEN SC; +MAG-OX 400 MG400 MG PO; +NORCO-10 PO; +PHENERGAN DM SYR5 ML PO; +ZYVOX600 MG PO
[2018-06-17 14:35] LABS: BASOPHILS 0.1 % (0-2); EOSINOPHILS 0.9 % (0-7); HEMATOCRIT 26.9 % (36.0-48.0); HEMOGLOBIN 8.8 g/dL (12-16); IMMATURE GRANULOCYTES 1.4 % (0-5); LYMPHOCYTES 8.4 % (15-50); MCH 30.9 pg (26.0-34.0); MCHC 32.7 g/dL (31.0-37.0); MCV 94.4 fL (80.0-100.0); MEAN PLATELET VOLUME 9.5 fL (7.4-10.4); MONOCYTES 5.7 % (2-11); NEUTROPHILS 83.5 % (40-80); PLATELET COUNT 273 10x3/uL (130-400); RBC 2.85 10x6/uL (4.00-5.40); RDW 16.8 % (11.5-14.5); WBC 16.9 10x3/uL (4.8-10.8)
[2018-06-17 14:37] LABS: APPEARANCE CLOUDY (CLEAR); BILIRUBIN NEGATIVE (NEGATIVE); COLOR STRAW (YELLOW); GLUCOSE NEGATIVE (NEGATIVE); KETONE MODERATE mg/dL (NEGATIVE); NITRITE POSITIVE (NEGATIVE); PROTEIN 1+ mg/dL (NEGATIVE); UROBILINOGEN NORMAL (NORMAL)
[2018-06-17 14:38] LABS: RED CELLS - URINE 0-5 /hpf (0-5)
[2018-06-17 14:41] LABS: BACTERIA MODERATE /hpf (NONE SEEN); EPITHELIAL CELLS 0-5 /hpf (0-5)
[2018-06-17 14:42] LABS: CALCIUM OXALATE CRYSTALS 0-5 /hpf (NONE SEEN)
[2018-06-17 14:47] LABS: UDS - AMPHET NEGATIVE QUAL (NEGATIVE); UDS - BARB NEGATIVE QUAL (NEGATIVE); UDS - BENZO NEGATIVE QUAL (NEGATIVE); UDS - COCAINE NEGATIVE QUAL (NEGATIVE); UDS - OPIATE POSITIVE QUAL (NEGATIVE); UDS - PCP NEGATIVE QUAL (NEGATIVE); UDS - THC NEGATIVE QUAL (NEGATIVE)
[2018-06-17 14:52] LABS: ALBUMIN 2.3 g/dL (3.4-5.0); ALKALINE PHOSPHATASE 101 U/L (46-116); ALT (SGPT) 18 U/L (10-68); BILIRUBIN - TOTAL 0.97 mg/dL (0.2-1.3); CALC OSMOLALITY 273 mosm/kg (275-300); CARBON DIOXIDE 34.8 mmol/L (21.0-32.0); CHLORIDE - SERUM 94 mmol/L (98-107); CREATININE - SERUM 0.4 mg/dL (0.6-1.3); GLUCOSE 201 mg/dL (74-106); POTASSIUM - SERUM 4.3 mmol/L (3.5-5.1); PROTEIN - SERUM 5.7 g/dL (6.4-8.2); SODIUM 135 mmol/L (136-145); UREA NITROGEN 7 mg/dL (7-18); eGFR NON AFRICAN AMERICAN > 90 mL/min (90-120)
[2018-06-17 15:01] LABS: MAGNESIUM - SERUM 1.3 mg/dL (1.8-2.4); PRO BNP 257 pg/mL (0-125); TROPONIN-I 0.024 ng/mL (0.000-0.060)
[2018-06-17 15:02] LABS: LIPASE 45 U/L (73-393)
[2018-06-18] VITALS (7 sets, daily range): BP systolic 113–158; BP diastolic 56–87; Ht 170.2 cm; Wt 72.5 kg
[2018-06-18 06:36] LABS: BASOPHILS 0.1 % (0-2); EOSINOPHILS 0 % (0-7); HEMATOCRIT 26.6 % (36.0-48.0); HEMOGLOBIN 8.7 g/dL (12-16); IMMATURE GRANULOCYTES 1.3 % (0-5); LYMPHOCYTES 7.6 % (15-50); MCH 30.5 pg (26.0-34.0); MCHC 32.7 g/dL (31.0-37.0); MCV 93.3 fL (80.0-100.0); MEAN PLATELET VOLUME 9.6 fL (7.4-10.4); MONOCYTES 2.9 % (2-11); NEUTROPHILS 88.1 % (40-80); PLATELET COUNT 278 10x3/uL (130-400); RBC 2.85 10x6/uL (4.00-5.40); RDW 16.5 % (11.5-14.5); WBC 17.8 10x3/uL (4.8-10.8)
[2018-06-18 10:04] LABS: ALBUMIN 2.3 g/dL (3.4-5.0); ALKALINE PHOSPHATASE 101 U/L (46-116); ALT (SGPT) 18 U/L (10-68); BILIRUBIN - TOTAL 0.55 mg/dL (0.2-1.3); CALC OSMOLALITY 283 mosm/kg (275-300); CALCIUM 9.2 mg/dL (8.5-10.1); CARBON DIOXIDE 33.1 mmol/L (21.0-32.0); CHLORIDE - SERUM 98 mmol/L (98-107); CREATININE - SERUM 0.6 mg/dL (0.6-1.3); GLUCOSE 228 mg/dL (74-106); MAGNESIUM - SERUM 1.5 mg/dL (1.8-2.4); POTASSIUM - SERUM 4.7 mmol/L (3.5-5.1); PROTEIN - SERUM 6.1 g/dL (6.4-8.2); SODIUM 139 mmol/L (136-145); UREA NITROGEN 11 mg/dL (7-18); eGFR NON AFRICAN AMERICAN > 90 mL/min (90-120)
[2018-06-19] VITALS: BP 120/65
[2018-06-19 04:00] VITALS: BP 116/78
[2018-06-19 06:56] LABS: BASOPHILS 0.1 % (0-2); EOSINOPHILS 0 % (0-7); HEMATOCRIT 26.1 % (36.0-48.0); HEMOGLOBIN 8.4 g/dL (12-16); IMMATURE GRANULOCYTES 1.2 % (0-5); MCH 30.5 pg (26.0-34.0); MCHC 32.2 g/dL (31.0-37.0); MCV 94.9 fL (80.0-100.0); MEAN PLATELET VOLUME 9.5 fL (7.4-10.4); MONOCYTES 3.5 % (2-11); NEUTROPHILS 89.2 % (40-80); PLATELET COUNT 326 10x3/uL (130-400); RBC 2.75 10x6/uL (4.00-5.40); RDW 16.3 % (11.5-14.5); WBC 24.9 10x3/uL (4.8-10.8)
[2018-06-19 07:04] LABS: ALBUMIN 2.3 g/dL (3.4-5.0); ALKALINE PHOSPHATASE 99 U/L (46-116); ALT (SGPT) 18 U/L (10-68); BILIRUBIN - TOTAL 0.19 mg/dL (0.2-1.3); CALCIUM 8.9 mg/dL (8.5-10.1); CARBON DIOXIDE 32.4 mmol/L (21.0-32.0); CHLORIDE - SERUM 97 mmol/L (98-107); MAGNESIUM - SERUM 1.3 mg/dL (1.8-2.4); POTASSIUM - SERUM 4.3 mmol/L (3.5-5.1); PROTEIN - SERUM 6.1 g/dL (6.4-8.2); SODIUM 136 mmol/L (136-145); UREA NITROGEN 13 mg/dL (7-18); eGFR NON AFRICAN AMERICAN 80 mL/min (90-120)
[2018-06-19 07:06] LABS: CALC OSMOLALITY 283 mosm/kg (275-300); CREATININE - SERUM 0.8 mg/dL (0.6-1.3); GLUCOSE 317 mg/dL (74-106)
[2018-06-19 09:02] VITALS: BP 167/102
[2018-06-19 13:32] VITALS: BP 116/56
[2018-06-19 16:49] VITALS: BP 133/73
[2018-06-19 20:30] VITALS: BP 130/69
[2018-06-20 00:30] VITALS: BP 165/89
[2018-06-20 04:30] VITALS: BP 144/77
[2018-06-20 06:36] LABS: BASOPHILS 0.1 % (0-2); EOSINOPHILS 0 % (0-7); HEMOGLOBIN 8.1 g/dL (12-16); LYMPHOCYTES 6.1 % (15-50); MCH 30.8 pg (26.0-34.0); MCHC 32.4 g/dL (31.0-37.0); MCV 95.1 fL (80.0-100.0); MEAN PLATELET VOLUME 9.5 fL (7.4-10.4); MONOCYTES 4.3 % (2-11); NEUTROPHILS 87.5 % (40-80); PLATELET COUNT 291 10x3/uL (130-400); RBC 2.63 10x6/uL (4.00-5.40); RDW 15.9 % (11.5-14.5); WBC 22.8 10x3/uL (4.8-10.8)
[2018-06-20 06:49] LABS: ALBUMIN 2.4 g/dL (3.4-5.0); ALKALINE PHOSPHATASE 95 U/L (46-116); ALT (SGPT) 19 U/L (10-68); BILIRUBIN - TOTAL 0.23 mg/dL (0.2-1.3); CALCIUM 8.9 mg/dL (8.5-10.1); CHLORIDE - SERUM 98 mmol/L (98-107); CREATININE - SERUM 0.7 mg/dL (0.6-1.3); MAGNESIUM - SERUM 1.4 mg/dL (1.8-2.4); POTASSIUM - SERUM 3.8 mmol/L (3.5-5.1); PROTEIN - SERUM 5.9 g/dL (6.4-8.2); SODIUM 138 mmol/L (136-145); eGFR NON AFRICAN AMERICAN > 90 mL/min (90-120)
[2018-06-20 06:50] LABS: CALC OSMOLALITY 294 mosm/kg (275-300); GLUCOSE 392 mg/dL (74-106); UREA NITROGEN 20 mg/dL (7-18)
[2018-06-20 09:32] VITALS: BP 141/82
[2018-06-20 13:17] VITALS: BP 136/71
[2018-06-20 17:22] VITALS: BP 142/90
[2018-06-20 20:30] VITALS: BP 130/86
[2018-06-21 04:30] VITALS: BP 154/82
[2018-06-21 05:20] LABS: BASOPHILS 0.2 % (0-2); EOSINOPHILS 0 % (0-7); HEMATOCRIT 26.2 % (36.0-48.0); HEMOGLOBIN 8.3 g/dL (12-16); LYMPHOCYTES 9.2 % (15-50); MCH 30.2 pg (26.0-34.0); MCHC 31.7 g/dL (31.0-37.0); MCV 95.3 fL (80.0-100.0); MEAN PLATELET VOLUME 9.5 fL (7.4-10.4); MONOCYTES 5.7 % (2-11); NEUTROPHILS 80.9 % (40-80); PLATELET COUNT 316 10x3/uL (130-400); RBC 2.75 10x6/uL (4.00-5.40); WBC 26.6 10x3/uL (4.8-10.8)
[2018-06-21 05:26] LABS: ALBUMIN 2.5 g/dL (3.4-5.0); ALKALINE PHOSPHATASE 88 U/L (46-116); BILIRUBIN - TOTAL 0.29 mg/dL (0.2-1.3); CALCIUM 9.7 mg/dL (8.5-10.1); CARBON DIOXIDE 39.2 mmol/L (21.0-32.0); CHLORIDE - SERUM 100 mmol/L (98-107); CREATININE - SERUM 0.6 mg/dL (0.6-1.3); POTASSIUM - SERUM 3.9 mmol/L (3.5-5.1); PROTEIN - SERUM 5.7 g/dL (6.4-8.2); SODIUM 144 mmol/L (136-145); UREA NITROGEN 21 mg/dL (7-18); eGFR NON AFRICAN AMERICAN > 90 mL/min (90-120)
[2018-06-21 05:36] LABS: ALT (SGPT) 13 U/L (10-68); CALC OSMOLALITY 295 mosm/kg (275-300); GLUCOSE 207 mg/dL (74-106); MAGNESIUM - SERUM 2.1 mg/dL (1.8-2.4)
[2018-06-21 08:24] VITALS: BP 118/64
[2018-06-21 10:59] VITALS: BP 128/62
[2018-06-21 15:55] VITALS: BP 114/66
[2018-06-21 20:00] VITALS: BP 129/62
[2018-06-22 04:00] VITALS: BP 130/72
[2018-06-22 05:36] LABS: BASOPHILS 0.1 % (0-2); EOSINOPHILS 0 % (0-7); HEMATOCRIT 26.2 % (36.0-48.0); HEMOGLOBIN 8.5 g/dL (12-16); IMMATURE GRANULOCYTES 1.8 % (0-5); LYMPHOCYTES 8.3 % (15-50); MCH 30.9 pg (26.0-34.0); MCHC 32.4 g/dL (31.0-37.0); MCV 95.3 fL (80.0-100.0); MEAN PLATELET VOLUME 9.3 fL (7.4-10.4); MONOCYTES 4.2 % (2-11); NEUTROPHILS 85.6 % (40-80); PLATELET COUNT 290 10x3/uL (130-400); RBC 2.75 10x6/uL (4.00-5.40); RDW 16.5 % (11.5-14.5)
[2018-06-22 05:45] LABS: WBC 18.2 10x3/uL (4.8-10.8)
[2018-06-22 06:04] LABS: ALBUMIN 2.3 g/dL (3.4-5.0); ALKALINE PHOSPHATASE 83 U/L (46-116); ALT (SGPT) 15 U/L (10-68); BILIRUBIN - TOTAL 0.37 mg/dL (0.2-1.3); CALC OSMOLALITY 297 mosm/kg (275-300); CALCIUM 9.1 mg/dL (8.5-10.1); CHLORIDE - SERUM 99 mmol/L (98-107); CREATININE - SERUM 0.6 mg/dL (0.6-1.3); GLUCOSE 246 mg/dL (74-106); POTASSIUM - SERUM 3.7 mmol/L (3.5-5.1); PROTEIN - SERUM 5.5 g/dL (6.4-8.2); SODIUM 144 mmol/L (136-145); UREA NITROGEN 20 mg/dL (7-18); eGFR NON AFRICAN AMERICAN > 90 mL/min (90-120)
[2018-06-22 08:05] VITALS: BP 33/62
[2018-06-22 11:21] VITALS: BP 128/66
[2018-06-22 16:50] VITALS: BP 119/68
== END 2018-06-22 17:20 | disposition home health service (06) | DRG 193 ==
LOC: D.ER 13:22 → D.M2 15:27 → D.EDHOLD 15:27 → D.M2 18:06
PROVIDERS: Family Medicine
DX: J18.9 Pneumonia, unspecified organism (principal); J96.21 Acute and chronic respiratory failure with hypoxia; J44.0 Chronic obstructive pulmonary disease with (acute) lower respiratory infection; N39.0 Urinary tract infection, site not specified; J44.1 Chronic obstructive pulmonary disease with (acute) exacerbation; K86.1 Other chronic pancreatitis; I50.32 Chronic diastolic (congestive) heart failure; G72.81 Critical illness myopathy; Y95 Nosocomial condition; J84.10 Pulmonary fibrosis, unspecified; E11.9 Type 2 diabetes mellitus without complications; K21.9 Gastro-esophageal reflux disease without esophagitis; I11.0 Hypertensive heart disease with heart failure; D50.9 Iron deficiency anemia, unspecified; K76.0 Fatty (change of) liver, not elsewhere classified

== ENCOUNTER 2018-06-17 13:22 | Outpatient (CLI) | payer MEDICARE ==
[2018-06-18 10:42] VITALS: BMI 27.4
== END 2018-06-17 15:27 | disposition other institution (70) ==
LOC: D.OPS 13:22
DX: J18.9 Pneumonia, unspecified organism (principal)

== ENCOUNTER 2018-08-28 16:20 | Inpatient (IN) | payer MEDICARE ==
[~2018-08-28] VITALS: Ht 162.6 cm; Wt 91.1 kg
[2018-08-28] VITALS (18 sets, daily range): BP systolic 73–133; BP diastolic 32–69; BMI 30.1
[2018-08-28 18:44] LABS: HEMOGLOBIN 9.1 g/dL (12-16); MCH 33.5 pg (26.0-34.0); MCHC 32.5 g/dL (31.0-37.0); MCV 102.9 fL (80.0-100.0); MEAN PLATELET VOLUME 9.9 fL (7.4-10.4); PLATELET COUNT 270 10x3/uL (130-400); RBC 2.72 10x6/uL (4.00-5.40); RDW 21.3 % (11.5-14.5); WBC 36.5 10x3/uL (4.8-10.8)
[2018-08-28 19:13] LABS: ALBUMIN 1.1 g/dL (3.4-5.0); ALKALINE PHOSPHATASE 409 U/L (46-116); ALT (SGPT) 39 U/L (10-68); BILIRUBIN - TOTAL 3.22 mg/dL (0.2-1.3); CALC OSMOLALITY 262 mosm/kg (275-300); CALCIUM 7.1 mg/dL (8.5-10.1); CARBON DIOXIDE 16.2 mmol/L (21.0-32.0); CHLORIDE - SERUM 89 mmol/L (98-107); CREATININE - SERUM 1.3 mg/dL (0.6-1.3); GLUCOSE 149 mg/dL (74-106); LYMPHOCYTES 17 % (15-50); NEUTROPHILS 83 % (40-80); PLATELET ESTIMATE NORMAL; POTASSIUM - SERUM 4.5 mmol/L (3.5-5.1); PROTEIN - SERUM 4.2 g/dL (6.4-8.2); SODIUM 130 mmol/L (136-145); UREA NITROGEN 10 mg/dL (7-18); eGFR NON AFRICAN AMERICAN 46 mL/min (90-120)
[2018-08-28 19:14] LABS: PLATELET MORPHOLOGY NORMAL PLT MORPH
[2018-08-28 19:15] LABS: AMYLASE - SERUM 39 U/L (25-115); CKMB 1.1 U/L (0.0-3.6); CREATINE KINASE 35 UL (21-215); PRO BNP 557 pg/mL (0-125); TROPONIN-I 0.023 ng/mL (0.000-0.060)
[2018-08-28 19:16] LABS: LIPASE 25 U/L (73-393)
[2018-08-28 19:23] LABS: INR 2.04 (0.85-1.17); PROTIME 22.4 SECONDS (11.6-15.0)
[2018-08-28 19:24] LABS: APTT 51.3 SECONDS (22.8-39.4)
[2018-08-28 19:31] LABS: D-DIMER-QUANTITATIVE 2.42 ug/mLFEU (0.20-0.54)
--- NOTE | 2018-08-28 19:52 | MORECARE ---
CASE MANAGEMENT DISCHARGE SUMMARY PATIENT: NINA ODELL UNIT: [id number] ADM DATE: 08/28/18 AGE: 48 : [birth year] SEX: F ROOM/BED: D.T02 AUTHOR: FELICIANO ALVARADO PHYSICIAN: REFERRING PHYSICIAN: CHONG MATHEWS MD DATE OF SERVICE: 08/28/18 Discharge Plan Patient Name: NINA ODELL Facility: [facility]:[place] : 1970 Planned Disposition: Anticipated Discharge Date: Discharge Date: Expected LOS: Initial Reviewer: [email or web address] Initial Review Date: 08/28/2018 Generated: 08/28/18 8:52 pm Patient Name: NINA ODELL Page [id number] at 1951 All edits/amendments must be made on the electronic document DICTATION DATE: 08/28/181951 BRUSH CUTTER: WIL 08/28/181951 RPT#: [id number] DC DATE: STATUS: ADM IN [facility] [address] [place] [address] END OF REPORT
--- NOTE | 2018-08-28 20:05 | MORECARE ---
CASE MANAGEMENT DISCHARGE SUMMARY PATIENT: NINA ODELL UNIT: [id number] ADM DATE: 08/28/18 AGE: 48 : 66 SEX: F ROOM/BED: D.T02 AUTHOR: FELICIANO ALVARADO PHYSICIAN: REFERRING PHYSICIAN: CHONG MATHEWS MD DATE OF SERVICE: 08/28/18 Discharge Plan Patient Name: NINA ODELL Facility: [facility]:[place] : 1970 Planned Disposition: Anticipated Discharge Date: Discharge Date: Expected LOS: Initial Reviewer: [email or web address] Initial Review Date: 08/28/2018 Generated: 08/28/18 9:04 pm Comments DCP- Discharge Planning Updated by [id number]: Lucrecia Hdez on 08/28/18 7:[address] @1807 Deven with [facility] contacted to verify home Hospice. Deven states patient is her own POA, states a daughter Jose Alfredo Tamayo #[phone] is a contact. CM called #[phone], made contact with son Ifeanyi Conte, who states he is unsure if his mother has a POA. @4903 CM was able to speak with both Jose Alfredo Tamayo (dtr) and son Ifeanyi Conte on speaker to find out if patient's mother had a POA and was informed that the patient is her own POA and makes all decisions. Dr. Abad spoke with both family members on the phone, made them aware that patient wanted "everything done for her" and that she is currently being intubated. @1835 CM contacted Deven with [facility] to make aware that patient is intubated and that contact had been made with family, they are aware. Lucrecia Hdez RN, CM Last DP export: 08/28/18 6:52 p Patient Name: NINA ODELL Page 36700 at 2005 All edits/amendments must be made on the electronic document DICTATION DATE: 08/28/182003 NEEDLE GRADER: WIL 08/28/182003 RPT#: [id number] DC DATE: STATUS: ADM IN [facility] [address] [place] [address] END OF REPORT
[2018-08-29] VITALS (92 sets, daily range): BP systolic 74–132; BP diastolic 42–96
[2018-08-29 05:30] LABS: BASOPHILS 0.2 % (0-2); EOSINOPHILS 0.1 % (0-7); HEMATOCRIT 27.7 % (36.0-48.0); HEMOGLOBIN 9.6 g/dL (12-16); IMMATURE GRANULOCYTES 1.1 % (0-5); LYMPHOCYTES 7.5 % (15-50); MCH 35.7 pg (26.0-34.0); MCHC 34.7 g/dL (31.0-37.0); MEAN PLATELET VOLUME 10.8 fL (7.4-10.4); MONOCYTES 3.2 % (2-11); NEUTROPHILS 87.9 % (40-80); PLATELET COUNT 325 10x3/uL (130-400); RBC 2.69 10x6/uL (4.00-5.40); RDW 21.2 % (11.5-14.5); WBC 36.2 10x3/uL (4.8-10.8)
[2018-08-29 06:14] LABS: APPEARANCE HAZY (CLEAR); BILIRUBIN NEGATIVE (NEGATIVE); COLOR DY (YELLOW); GLUCOSE NEGATIVE (NEGATIVE); KETONE NEGATIVE (NEGATIVE); NITRITE NEGATIVE (NEGATIVE); PROTEIN NEGATIVE (NEGATIVE); UROBILINOGEN NORMAL (NORMAL)
[2018-08-29 06:16] LABS: AMORPHOUS SEDIMENT <1+ /lpf (NONE SEEN); BACTERIA MANY /hpf (NONE SEEN); EPITHELIAL CELLS 0-5 /hpf (0-5); GRANULAR CAST RARE /lpf (NONE SEEN); HYALINE CAST OCC /lpf (NONE SEEN); MUCUS <1+ /lpf (NONE SEEN)
[2018-08-30] VITALS (91 sets, daily range): BP systolic 66–145; BP diastolic 22–90; Ht 162.6 cm; Wt 91.1 kg
[2018-08-30 04:01] LABS: INR 1.73 (0.85-1.17); PROTIME 19.6 SECONDS (11.6-15.0)
[2018-08-30 04:19] LABS: ALKALINE PHOSPHATASE 199 U/L (46-116); AMYLASE - SERUM 41 U/L (25-115); BILIRUBIN - TOTAL 3.78 mg/dL (0.2-1.3); CHLORIDE - SERUM 92 mmol/L (98-107); CKMB 4.5 U/L (0.0-3.6); GLUCOSE 138 mg/dL (74-106); MAGNESIUM - SERUM 1.1 mg/dL (1.8-2.4); PHOSPHOROUS 2.5 mg/dL (2.5-4.9); PRO BNP 2328 pg/mL (0-125); PROTEIN - SERUM 4.4 g/dL (6.4-8.2); SODIUM 131 mmol/L (136-145); TROPONIN-I 0.034 ng/mL (0.000-0.060)
[2018-08-30 04:20] LABS: CALC OSMOLALITY 262 mosm/kg (275-300); CREATININE - SERUM 0.7 mg/dL (0.6-1.3); LIPASE 36 U/L (73-393); POTASSIUM - SERUM 3.7 mmol/L (3.5-5.1); UREA NITROGEN 7 mg/dL (7-18); eGFR NON AFRICAN AMERICAN > 90 mL/min (90-120)
[2018-08-30 04:21] LABS: ALBUMIN 2.2 g/dL (3.4-5.0); ALT (SGPT) 28 U/L (10-68); CALCIUM 6.2 mg/dL (8.5-10.1); DIGOXIN 0.01 ng/mL (0.90-2.00)
--- NOTE | 2018-08-30 08:43 | CN ---
PATIENT NAME:NINA ODELL MEDICAL RECORD: [id number] : [birth year] LOCATION:JERRYD.2306 ADMIT DATE: 08/28/18 ACCOUNT: [id number] CONSULTING PHYSICIAN: BASIA MOREIRA MD REFERRING PHYSICIAN: CHONG MATHEWS MD DATE OF CONSULTATION: 08/29/2018 CARDIOLOGY CONSULTATION DATE OF SERVICE: 08/29/2018 DIAGNOSES: 1. Sepsis. 2. Hypotension. 3. Atrial fibrillation. HISTORY OF PRESENT ILLNESS: Mrs. Odell presents with shortness of breath, rapidly progressed to respiratory failure and requiring mechanical intubation. She was hypotensive and initially in atrial flutter. She was given digoxin and Cardizem, is converted to sinus rhythm. She has a history of COPD. It appears that she possibly has urosepsis at this time. PHYSICAL EXAMINATION: GENERAL APPEARANCE: Well-nourished, well-developed, appears stated age. Level of distress, comfortable. PSYCHIATRIC: Mental status, alert, normal affect. Orientation, oriented to time, place and person. EYES: Lids and conjunctiva, noninjected. No discharge, no pallor. ENT: Lips, teeth, gums, normal dentition. Oropharynx, no cyanosis, no pallor. NECK: Carotid arteries, bilateral normal upstroke, no bruits, no thrills. JUGULAR VEINS: No jugular venous pressure or distention. CERVICAL LYMPH NODES: Nontender, nonenlarged. THYROID: Not enlarged. Nontender. No nodules. LUNGS: Respiratory effort, unlabored. CHEST: Normal curvature. No thoracic deformity. No chest wall tenderness. Percussion, resonant. Auscultation, clear. No wheezes, no rales, no rhonchi. CARDIOVASCULAR: Precordial exam, nondisplaced. No heaves or pericardial thrills. Rate and rhythm, regular. Heart sounds, normal S1, normal S2. No S3, no gallop, no rub. Systolic murmur, not heard. Diastolic murmur, not heard. EXTREMITIES: No cyanosis, no edema. Peripheral pulses, full and equal in all extremities, except as noted. No bruits appreciated. ABDOMEN: Soft, nondistended. Normal aorta. No bruit. Nontender. No masses. Liver, nontender, no hepatomegaly. Spleen, nontender, no splenomegaly. MUSCULOSKELETAL: No joint tenderness. No joint swelling. No erythema. NEUROLOGICAL: Normal gait, normal strength, normal tone. SKIN: Warm and dry. OVERALL IMPRESSION: Atrial fibrillation converted to sinus rhythm. At this time, we will get an echocardiogram. No other cardiac workup or treatment is necessary. TRANSINT:[id number] Voice Confirmation ID: [id number] DOCUMENT ID: [id number] CONSULT REPORT [id number] NINA ODELL, BASIA MICHELE at 0843 CC: [id number] DICTATION DATE: 08/29/18 1145 WIND PLANT MANAGER: 08/29/18 1159 ADM IN [facility] [address] [place] [address]
--- NOTE | 2018-08-30 15:54 | EC ---
PATIENT:NINA ODELL DATE OF SERVICE: 08/28/18 SEX: F MEDICAL RECORD: [id number] DATE OF : [birth year] LOCATION:[facility] D.230 AGE OF PATIENT: 48 ADMISSION DATE: 08/28/18 REFERRING PHYSICIAN: INTERPRETING PHYSICIAN: BASIA BLEVINS MD ECHOCARDIOGRAM REPORT ECHO CHARGES 4 ECHO COMPLETE Date: 08/29/18 CLINICAL DIAGNOSIS: ATRIAL FIB ECHOCARDIOGRAPHIC MEASUREMENTS (adult normal given) AC root (d.<3.7cm) 3.2 cm LV Septum d (<1.2 cm> 1.1 cm Valve Excursion 1.1 cm LV Septum (systole) 1.2 cm Left Atria (s.<4.0cm> 2.0 cm LVPW d(<1.2cm) 1.3 cm RV (d.<2.3cm) 3.0 cm LVPW (sytole) 1.5 cm LV diastole(<5.6CM) 3.7 cm MV E-F(>70mm/sec) cm LV systole 2.8 cm LVOT Diameter 1.9 cm MV exc.(>10mm) 1.5 cm Est.ejection fraction (50-75%) % DOPPLER: LVIT cm/sec A 76.0 cm/sec E 64.0 cm/sec LA cm/sec RVSP 54 mmHg LVOT 86 cm/sec AOP1/2T m/s Asc. Ao 124 cm/sec RVOT 77 cm/sec RA cm/sec PA 121 cm/sec AV Gradient Peak 6.16 mmHg AV Mean 3.14 mmHg AV Area 2.9 cm MV Gradient Peak 4.10 mmHg MV Mean 1.24 mmHg MV Area cm COMMENTS: Manufacturing Quality Inspector: Warren THAYER Hand Rounder: 1 Dr. Blevins TAPE# PACS Pericardial Effusion N DATE OF SERVICE: 08/29/2018 FINDINGS: 1. Left ventricular chamber size is within normal limits. Left ventricular systolic function is normal. Overall ejection fraction is estimated at 55%. 2. Left atrium, right atrium, and right ventricle chamber sizes are within normal limit. 3. Valvular structures have normal structure and motion. 4. Doppler interrogation reveals moderate tricuspid regurgitation. No other valvular insufficiency or stenosis. Pulmonary systolic pressure is estimated at ECHOCARDIOGRAM REPORT [id number] NINA ODELL 54 mmHg. 5. No evidence of pericardial effusion or left ventricular thrombus. TRANSINT:[id number] Voice Confirmation ID: [id number] DOCUMENT ID: [id number] BASIA BLEVINS MD at 1554 CC: [id number] DICTATION DATE: 08/29/18 1316 DIET KITCHEN COOK: 08/29/18 1344 ADM IN [facility] [address] [place] [address]
[2018-08-31] VITALS (94 sets, daily range): BP systolic 66–111; BP diastolic 32–84
[2018-08-31 05:15] LABS: MCH 34.3 pg (26.0-34.0); MCHC 31.4 g/dL (31.0-37.0); MCV 109.5 fL (80.0-100.0); MEAN PLATELET VOLUME 11.1 fL (7.4-10.4); PLATELET COUNT 188 10x3/uL (130-400); RDW 20.1 % (11.5-14.5); WBC 22.3 10x3/uL (4.8-10.8)
[2018-08-31 05:16] LABS: ALBUMIN 2.3 g/dL (3.4-5.0); ALKALINE PHOSPHATASE 170 U/L (46-116); ALT (SGPT) 35 U/L (10-68); BILIRUBIN - TOTAL 4.55 mg/dL (0.2-1.3); CARBON DIOXIDE 34.2 mmol/L (21.0-32.0); CHLORIDE - SERUM 93 mmol/L (98-107); PHOSPHOROUS 2.2 mg/dL (2.5-4.9); POTASSIUM - SERUM 3.5 mmol/L (3.5-5.1); PROTEIN - SERUM 4.2 g/dL (6.4-8.2); SODIUM 132 mmol/L (136-145); UREA NITROGEN 6 mg/dL (7-18)
[2018-08-31 05:17] LABS: HEMATOCRIT 18.5 % (36.0-48.0); HEMOGLOBIN 5.8 g/dL (12-16); RBC 1.69 10x6/uL (4.00-5.40)
[2018-08-31 05:20] LABS: CALC OSMOLALITY 270 mosm/kg (275-300); CREATININE - SERUM 0.4 mg/dL (0.6-1.3); GLUCOSE 248 mg/dL (74-106); MAGNESIUM - SERUM 1.7 mg/dL (1.8-2.4); eGFR NON AFRICAN AMERICAN > 90 mL/min (90-120)
[2018-08-31 05:22] LABS: CALCIUM 6.1 mg/dL (8.5-10.1)
[2018-08-31 06:00] LABS: LYMPHOCYTES 3 % (15-50); MONOCYTES 1 % (2-11); NEUTROPHILS 96 % (40-80); PLATELET ESTIMATE DECREASED
[2018-09-01] VITALS (58 sets, daily range): BP systolic 54–96; BP diastolic 21–54
--- NOTE | 2018-09-02 16:57 | MORECARE ---
CASE MANAGEMENT DISCHARGE SUMMARY PATIENT: NINA ODELL UNIT: [id number] ADM DATE: 08/28/18 AGE: 48 : 66 SEX: F ROOM/BED: D.2306 AUTHOR: FELICIANO ALVARADO PHYSICIAN: REFERRING PHYSICIAN: CHONG MATHEWS MD DATE OF SERVICE: 09/02/18 Discharge Plan Patient Name: NINA ODELL Facility: [facility]:[place] : 1970 Planned Disposition: Anticipated Discharge Date: Discharge Date: 09/01/2018 Expected LOS: Initial Reviewer: [email or web address] Initial Review Date: 08/28/2018 Generated: 09/02/18 5:57 pm DCP- Discharge Planning Updated by [email or web address]: Lucrecia Hdez on 08/28/18 7:[address] @1803 Deven with [facility] contacted to verify home Hospice. Deven states patient is her own POA, states a daughter Jose Alfredo Tamayo #[phone] is a contact. CM called [phone], made contact with son Ifeanyi Conte, who states he is unsure if his mother has a POA. @4787 CM was able to speak with both Jose Alfredo Tamayo (dtr) and son Ifeanyi Conte on speaker to find out if patient's mother had a POA and was informed that the patient is her own POA and makes all decisions. Dr. Abad spoke with both family members on the phone, made them aware that patient wanted "everything done for her" and that she is currently being intubated. @1832 CM contacted Deven with [facility] to make aware that patient is intubated and that contact had been made with family, they are aware. Lucrecia Hdez RN, CM Last DP export: 08/28/18 7:05 p Patient Name: NINA ODELL Page 51665 at 8728 All edits/amendments must be made on the electronic document DICTATION DATE: 09/02/181655 POLYSOMNOGRAPHY TECHNICIAN: WIL 09/02/181655 RPT#: [id number] DC DATE:09/01/18 STATUS: DIS IN [facility] [address] [place] [address] END OF REPORT
== END 2018-09-01 18:38 | DRG 871 ==
LOC: D.ER 16:20 → D.EDHOLD 19:22 → D.ICU 19:22
PROVIDERS: Family Medicine; Internal Medicine Pulmonary Disease; ADMIT Family Medicine Adult Medicine
PROC: 0BH17EZ Insertion of Endotracheal Airway into Trachea, Via Natural or Artificial Opening (ICD-10-PCS; principal; 2018-08-28)
PROC: 5A1945Z Respiratory Ventilation, 24-96 Consecutive Hours (ICD-10-PCS; 2018-08-28)
DX: A41.50 Gram-negative sepsis, unspecified (principal); J96.21 Acute and chronic respiratory failure with hypoxia; J96.22 Acute and chronic respiratory failure with hypercapnia; R65.21 Severe sepsis with septic shock; E43 Unspecified severe protein-calorie malnutrition; J15.6 Pneumonia due to other Gram-negative bacteria; J15.212 Pneumonia due to Methicillin resistant Staphylococcus aureus; I48.92 Unspecified atrial flutter; N39.0 Urinary tract infection, site not specified; I50.32 Chronic diastolic (congestive) heart failure; E87.1 Hypo-osmolality and hyponatremia; G72.81 Critical illness myopathy; J44.1 Chronic obstructive pulmonary disease with (acute) exacerbation; I48.91 Unspecified atrial fibrillation; Z66 Do not resuscitate; J84.10 Pulmonary fibrosis, unspecified; E66.01 Morbid (severe) obesity due to excess calories; D53.9 Nutritional anemia, unspecified; E11.9 Type 2 diabetes mellitus without complications; K21.9 Gastro-esophageal reflux disease without esophagitis; K76.0 Fatty (change of) liver, not elsewhere classified; D50.9 Iron deficiency anemia, unspecified; A41.02 Sepsis due to Methicillin resistant Staphylococcus aureus